=== PATIENT | female | born 1990 | race Caucasian/White ===

== ENCOUNTER 2017-10-29 00:40 | Emergency (ER) | payer MEDICAID, SELFPAY ==
[2017-10-29] VITALS (7 sets, daily range): BP systolic 93–114; BP diastolic 48–71; PULSE 88–93; RESP 14–18; TEMP 36.6; O2SAT 95; BMI 43.2
--- NOTE | 2017-10-29 01:00 | ED.VISSUMM ---
- ER Visit Summary Date of Service: 10/29/17 Chief Complaint: Suicidal ideation History of Present Illness: The patient is a 26 F presents with mother for suicidal ideations over the past couple days. Increasing stress in guiltiness. History of depression, bipolar, PTSD. Patient just discharged from [facility] on the of last month after 5 day stay. She was started on Abilify and trazodone. Still taking Celexa. Was not represcribed Klonopin. Patient states she hears voices, voices telling her to kill herself.. She states she does have a plan of either overdose, jump and out in front of a car, or off a bridge. States history of overdose ?3 along with self-mutilation. Patient states her only inpatient was her last visit [facility]. States she drank alcohol today, not regularly. Smokes tobacco. Previous IV methamphetamine use, last use was prior to her hospitalization. Denies any vomiting diarrhea. Last menstrual period was approximately a month ago. Patient states she had a good experience with [facility] would like to go back. Physical Examination: General: Alert and oriented ?3, no acute distress HEENT: Normocephalic, atraumatic. Moist mucosa membranes Neck: supple, nontender. Cardiovascular: Regular rate and rhythm, no murmurs Respiratory: Normal breath sounds, symmetric, no distress Abdomen: Soft, nontender, nondistended Extremities: Nontender, no edema, pulses intact ?4 Neuro: no focal neurological deficits. Psych: Flat affect, depressed, cooperative. Suicidal ideations. Test Results: CBC, CMP normal. HCG negative. Alcohol 18. Tox screen positive for methamphetamines. Emergency Department Course and Treatment: Patient vitals stable, cooperative. Medical clearance labs obtained. Alcohol 18, tox screen positive for methamphetamines. Patient later did admit to nursing that she use IV meth yesterday. She is medically cleared. Currently pending [facility] evaluation for placement. 0630: Patient accepted back to [facility]. Treatment Plan: [] Disposition: Transfer to [facility] Impression: 1. Suicidal ideations with a plan This note was generated with [employer] software. It may contain incorrect words, spelling, and punctuation that were not noted in review of the chart prior to signing ED Disposition - Plan for ED Patient: Disposition: Psychiatric Hospital or Unit Chief Complaint: Suicidal Diagnosis: Depression with suicidal ideation Referrals: Jony Vásquez MD [Primary Care Provider] -
--- NOTE | 2017-10-29 01:03 | ED.DCSUM_ITS ---
- ER Visit Summary Date of Service: 10/29/17 Chief Complaint: Suicidal ideation History of Present Illness: The patient is a 26 F presents with mother for suicidal ideations over the past couple days. Increasing stress in guiltiness. History of depression, bipolar, PTSD. Patient just discharged from [facility] on the of last month after 5 day stay. She was started on Abilify and trazodone. Still taking Celexa. Was not represcribed Klonopin. Patient states she hears voices, voices telling her to kill herself.. She states she does have a plan of either overdose, jump and out in front of a car, or off a bridge. States history of overdose ?3 along with self-mutilation. Patient states her only inpatient was her last visit [facility]. States she drank alcohol today, not regularly. Smokes tobacco. Previous IV methamphetamine use , last use was prior to her hospitalization. Denies any vomiting diarrhea. Last menstrual period was approximately a month ago. Patient states she had a good experience with [facility] would like to go back. Physical Examination: General: Alert and oriented ?3, no acute distress HEENT: Normocephalic, atraumatic. Moist mucosa membranes Neck: supple, nontender. Cardiovascular: Regular rate and rhythm, no murmurs Respiratory: Normal breath sounds, symmetric, no distress Abdomen: Soft, nontender, nondistended Extremities: Nontender, no edema, pulses intact ?4 Neuro: no focal neurological deficits. Psych: Flat affect, depressed, cooperative. Suicidal ideations. Test Results: CBC, CMP normal. HCG negative. Alcohol 18. Tox screen positive for methamphetamines. Emergency Department Course and Treatment: Patient vitals stable, cooperative. Medical clearance labs obtained. Alcohol 18, tox screen positive for methamphetamines. Patient later did admit to nursing that she use IV meth yesterday. She is medically cleared. Currently pending [facility] evaluation for placement. 0630: Patient accepted back to [facility]. Treatment Plan: [] Disposition: Transfer to [facility] Impression: 1. Suicidal ideations with a plan This note was generated with [employer]ation software. It may contain incorrect words, spelling, and punctuation that were not noted in review of the chart prior to signing ED Disposition - Plan for ED Patient: Disposition: Psychiatric Hospital or Unit Chief Complaint: Suicidal Diagnosis: Depression with suicidal ideation Referrals: Jony Vásquez MD [Primary Care Provider] -
[2017-10-29 01:14] LABS: Absolute Lymphocyte Count 2.75 X10^3/ul (0.83-4.51); Absolute Neutrophil Count 5.5 X10^3/uL (2.0-7.7); Basophil# 0.02 X10^3/uL; Basophil% 0.2 % (0-1); Eosinophil# 0.13 X10^3/uL; Eosinophils% 1.5 % (0-5); Hematocrit 34.7 % (37-47); Lymphocyte # 2.75 X10^3/ul (4.0); Lymphocyte % 30.9 % (19-41); Mean Corp Hgb Conc 31.7 g/gl (32-36); Mean Corpuscular Hgb 27.7 pg (27.0-32.0); Mean Corpuscular Volume 87.4 fL (81-99); Mean Platelet Vol. 10.4 fl (6.2-12.0); Monocyte# 0.45 X10^3/uL; Monocyte% 5.1 % (0-10); Neutrophil # 5.54 X10^3/uL (2.7-7.7); Neutrophil % 62.1 % (47-70); Platelet Count 276 K/mm3 (150-450); Red Blood Count 3.97 M/mm3 (4.2-5.4); White Blood Count 8.9 K/mm3 (4.4-11.0)
[2017-10-29 01:19] LABS: POSITIVE COUNT NO; POSITIVE DIFFERENTIAL NO; POSITIVE MORPHOLOGY NO
[2017-10-29 01:27] LABS: ALB/GLOB Ratio 0.8 RATIO (0.9-2.4); AST(SGOT) 17 U/L (15-37); Alanine Aminotransfer ALT/SGPT 28 U/L (13-56); Albumin, Serum 3.4 g/dL (3.2-5.0); Alkaline Phosphatase 68 U/L (45-117); Anion Gap 10 (5-15); BUN 14 mg/dL (7-18); BUN/Creat Ratio 18.3 RATIO (10-20); Calcium,Total 8.4 mg/dL (8.5-10.1); Chloride 107 mmol/L (98-107); Creatinine, Serum 0.77 mg/dL (0.55-1.02); EST Glomerular Filtration Rate 95 mL/min (>60); Est Glom Filt Rate - Afr Amer 115 mL/min (>60); Estimated Creatinine Clearance 105.78 ml/min; Glucose 113 mg/dL (74-106); Potassium 3.6 mmol/L (3.5-5.1); Protein, Total 7.4 g/dL (6.4-8.2); Sodium Level 140 mmol/L (136-145)
[2017-10-29 01:49] LABS: Pregnancy, Serum, hCG Quali. NEGATIVE Negative (0-9 Nonpreg)
[2017-10-29 01:49] LABS: Amphetamine Urine VISTA POSITIVE (<1000 ng/mL); Barbiturate Urine VISTA NEGATIVE (< 200 ng/mL); Benzodiazepine Urine VISTA NEGATIVE (< 200 ng/mL); Cocaine Urine VISTA NEGATIVE (< 300 ng/mL); Ecstacy Urine VISTA POSITIVE (< 500 ng/mL); Methadone Urine VISTA NEGATIVE (< 300 ng/mL); PCP Urine VISTA NEGATIVE (< 25 ng/mL); THC Urine VISTA NEGATIVE (< 50 ng/mL); Vista UDS pH Range 5
--- NOTE | 2017-10-29 02:05 | ED.RN ---
RN CALLED FOR EKG, NO OLD EKG'S IN MUSE
--- NOTE | 2017-10-29 02:47 | ED.RN ---
CALLED CRISIS TO SEE THIS PT, NEDA IS UPHOLSTERY SEWER
--- NOTE | 2017-10-29 02:58 | ED.RN ---
NEDA CALLED BACK, SHE WILL BE IN
[2017-10-29] MEDS: ARIPiprazole 5 MG Tablet 15 MG PO (06:56)
[2017-10-29] MEDS: lamoTRIgine 100 MG Tablet PO (06:57)
[2017-10-29] MEDS: Citalopram 20 MG Tablet PO (06:57)
[2017-10-29] MEDS: traZODone 50 MG Tablet 150 MG PO (06:57)
[2017-10-29] MEDS: Thyroid 15 MG Tablet 30 MG PO (07:16)
== END 2017-10-29 08:11 ==
PROVIDERS: Emergency Provider Emergency Medicine; Family Provider Family Medicine; PCP Family Medicine
DX: R45.851 Suicidal ideations (principal); F32.9 Major depressive disorder, single episode, unspecified; F31.9 Bipolar disorder, unspecified; F43.10 Post-traumatic stress disorder, unspecified; F15.90 Other stimulant use, unspecified, uncomplicated; Z79.899 Other long term (current) drug therapy; F17.200 Nicotine dependence, unspecified, uncomplicated
CPT/HCPCS: 36415; 80053; 80307; 80320; 84703; 85025; 99285; G0480

== ENCOUNTER 2017-11-14 16:50 | Emergency (ER) | payer MEDICAID, SELFPAY ==
[2017-11-14 16:51] VITALS: BP 122/67; PULSE 96; RESP 14; TEMP 36.4; O2SAT 95; BMI 44.0
--- NOTE | 2017-11-14 17:40 | ED.DCSUM_ITS ---
- ER Visit Summary Date of Service: 11/14/17 Chief Complaint: Suicidal ideation History of Present Illness: The patient is a 27 F presenting with suicidal ideation. Patient states she was released from [facility] today. She was admitted for 1 week. She complains of persistent suicidal ideation, auditory hallucinations, depression. She states that she plans to overdose. She had an overdose 1 week ago on trazodone. She states she was only home for a couple hours and her mom brought her back to the ED for further evaluation. Physical Examination: Vitals are stable. Patient is afebrile. Alert no acute distress. HEENT exam is unremarkable. Neck is supple. Lungs are clear and equal bilaterally. Heart is regular rate and rhythm. Abdomen is soft nontender nondistended. Extremities are unremarkable. Skin is warm and dry. No focal neurologic deficit. Suicidal ideation Remainder of exam is unremarkable. Emergency Department Course and Treatment: CBC, chemistries unremarkable other than BUN 25. HCG negative. Tox and alcohol are negative. Discussed with the counseling center for evaluation. Disposition: Per counseling center Impression: Suicidal ideation, auditory hallucinations This note was generated with [employer] dictation software. It may contain incorrect words, spelling, and punctuation that were not noted in review of the chart prior to signing ED Disposition - Plan for ED Patient: Chief Complaint: Suicidal Referrals: Jony Vásquez MD [Primary Care Provider] -
[2017-11-14 17:46] LABS: Absolute Neutrophil Count 4.3 X10^3/uL (2.0-7.7); Basophil# 0.03 X10^3/uL; Basophil% 0.4 % (0-1); Eosinophil# 0.14 X10^3/uL; Eosinophils% 1.8 % (0-5); Hematocrit 35.1 % (37-47); Hemoglobin 11.3 g/dl (12.0-15.0); Lymphocyte % 35.2 % (19-41); Mean Corp Hgb Conc 32.2 g/gl (32-36); Mean Corpuscular Hgb 28.3 pg (27.0-32.0); Mean Corpuscular Volume 87.8 fL (81-99); Mean Platelet Vol. 10.4 fl (6.2-12.0); Monocyte% 6.5 % (0-10); Neutrophil % 56.1 % (47-70); Platelet Count 240 K/mm3 (150-450); RBC Distribution Width CV 15.9 % (11.6-14.6); RBC Distribution Width SD 50.6 fl (35.1-43.9); White Blood Count 7.7 K/mm3 (4.4-11.0)
[2017-11-14 17:51] LABS: POSITIVE COUNT NO; POSITIVE DIFFERENTIAL NO; POSITIVE MORPHOLOGY NO
[2017-11-14 18:02] LABS: Alcohol, Blood (Medical)-Serum < 3.0 mg/dL; Anion Gap 5 (5-15); BUN 25 mg/dL (7-18); BUN/Creat Ratio 28.1 RATIO (10-20); Calcium,Total 9.1 mg/dL (8.5-10.1); Chloride 109 mmol/L (98-107); Creatinine, Serum 0.89 mg/dL (0.55-1.02); EST Glomerular Filtration Rate 80 mL/min (>60); Est Glom Filt Rate - Afr Amer 97 mL/min (>60); Glucose 100 mg/dL (74-106); Potassium 4.1 mmol/L (3.5-5.1); Sodium Level 140 mmol/L (136-145)
[2017-11-14 18:09] LABS: Pregnancy, Serum, hCG Quali. NEGATIVE Negative (0-9 Nonpreg)
[2017-11-14 18:57] LABS: Amphetamine Urine VISTA NEGATIVE (<1000 ng/mL); Barbiturate Urine VISTA NEGATIVE (< 200 ng/mL); Benzodiazepine Urine VISTA NEGATIVE (< 200 ng/mL); Cocaine Urine VISTA NEGATIVE (< 300 ng/mL); Ecstacy Urine VISTA NEGATIVE (< 500 ng/mL); Methadone Urine VISTA NEGATIVE (< 300 ng/mL); PCP Urine VISTA NEGATIVE (< 25 ng/mL); THC Urine VISTA NEGATIVE (< 50 ng/mL); Vista UDS pH Range 7
[2017-11-14 19:00] VITALS: BP 105/55; PULSE 74; RESP 18; O2SAT 95
--- NOTE | 2017-11-14 21:12 | NURSING ---
PT HAS A NICOTINE INHALER, CALLED THE PHARMACY TO SEE IF IT WAS COMP. TO THE PATCH AND THEY SAID YES. SO I ALLOWED THE PT TO HAVE HER INHALER.
[2017-11-14 21:15] VITALS: BP 107/83; PULSE 82; RESP 18; O2SAT 97
[2017-11-14 22:00] VITALS: RESP 16
--- NOTE | 2017-11-14 22:16 | ED.RN ---
CRISIS ON SITE
--- NOTE | 2017-11-14 22:36 | EKG12_ITS ---
Test Reason : Blood Pressure : / mmHG Vent. Rate : 069 BPM Atrial Rate : 069 BPM P-R Int : 152 ms QRS Dur : 098 ms QT Int : 426 ms P-R-T Axes : 007 064 058 degrees QTc Int : 456 ms Normal sinus rhythm Normal ECG Confirmed by JOSELINE SHAIKH ([id number]), industrial editor KANDACE TORRES ([id number] on 11/21/2017 2:45:09 PM Referred By: ALYSSA Confirmed By:JOSELINE SHAIKH
--- NOTE | 2017-11-14 22:42 | ED.RN ---
no old ekg's in [facility]
[2017-11-14 23:00] VITALS: RESP 16
[2017-11-14 23:05] LABS: Color, Urine Yellow (Yellow); Glucose, Dipstick Normal (Normal); Ketone-Dipstick Negative (Negative); Leukocyte Esterase-Dipstick 500 /ul (Negative); Nitrite-Dipstick Negative (Negative); Occult Blood-Urine 25 /ul (Negative); Protein-Dipstick 15 mg/dl (Negative); Specific Gravity, Urine 1.025 (1.002-1.030); Urine Bilirubin Dipstick Negative (Negative); Urine Clarity Clear (Clear); Urine Urobilinogen Normal (Normal)
[2017-11-14 23:05] LABS: AST(SGOT) 19 U/L (15-37); Alanine Aminotransfer ALT/SGPT 29 U/L (13-56); Albumin, Serum 3.5 g/dL (3.2-5.0); Alkaline Phosphatase 64 U/L (45-117); Bilirubin, Direct 0.06 mg/dL (0.00-0.30); Globulin 3.9 g/dL (2.2-4.2); Protein, Total 7.4 g/dL (6.4-8.2)
[2017-11-14 23:23] LABS: Red Blood Cells-Urine 0-5 SEEN /hpf (0-5); White Blood Cells 5-10 SEEN /hpf (0-5)
[2017-11-14 23:24] LABS: Bacteria RARE /hpf (None Seen); Mucous, Urine 1+ /hpf (<or=2+); Squamous Epithelial Cells - UA 5-10 SEEN /hpf (5-10)
[2017-11-15] VITALS (15 sets, daily range): BP systolic 95–135; BP diastolic 51–78; PULSE 68–77; RESP 14–18; O2SAT 97–99
[2017-11-15] MEDS: Thyroid 15 MG Tablet 30 MG PO (07:11)
[2017-11-15] MEDS: ARIPiprazole 5 MG Tablet 15 MG PO (08:12)
[2017-11-15] MEDS: Citalopram 20 MG Tablet PO (08:13)
[2017-11-15] MEDS: lamoTRIgine 100 MG Tablet PO (08:13)
--- NOTE | 2017-11-15 11:00 | NURSING ---
PATIENT ON THE WAIT LIST AT [facility]
[2017-11-16] VITALS (8 sets, daily range): BP systolic 102–110; BP diastolic 69–81; PULSE 69–74; RESP 16–17; TEMP 36.7; O2SAT 96–98
--- NOTE | 2017-11-16 05:41 | NURSING ---
TRANSPORT TO BE SET UP AROUND 9AM THAT IS WHEN A BED WILL FINALLY BE READY.
--- NOTE | 2017-11-16 06:23 | NURSING ---
[facility] called that the pt will have a bed at 0900 and we will set up transport and will call nurse to nurse report.
[2017-11-16] MEDS: Thyroid 15 MG Tablet 30 MG PO (06:48)
[2017-11-16] MEDS: lamoTRIgine 100 MG Tablet PO (08:05)
[2017-11-16] MEDS: ARIPiprazole 5 MG Tablet 15 MG PO (08:05)
[2017-11-16] MEDS: Citalopram 20 MG Tablet PO (08:05)
== END 2017-11-16 09:17 ==
PROVIDERS: Emergency Provider Emergency Medicine; Family Provider Family Medicine; PCP Family Medicine
DX: R45.851 Suicidal ideations (principal); R44.0 Auditory hallucinations; F32.9 Major depressive disorder, single episode, unspecified; F43.10 Post-traumatic stress disorder, unspecified; F31.9 Bipolar disorder, unspecified; F41.9 Anxiety disorder, unspecified; Z79.899 Other long term (current) drug therapy; Z72.0 Tobacco use
CPT/HCPCS: 36415; 80048; 80076; 80307; 80320; 81001; 84703; 85025; 93005; 99285; G0480

== ENCOUNTER 2018-03-26 14:30 | Emergency (ER) | payer MEDICAID, SELFPAY ==
[2018-03-26 14:31] VITALS: BP 132/79; PULSE 101; RESP 14; TEMP 36.4; O2SAT 98; BMI 43.1
--- NOTE | 2018-03-26 14:56 | ED.VISSUMM ---
- ER Visit Summary Date of Service: 03/26/18 Chief Complaint: Suicidal ideation History of Present Illness: The patient is a 27 F with a few week history of suicidal ideation, it is worsening. She was in [place] [facility] and she was suicidal there but now she is getting worse. She is been clean 2 weeks from her drugs. But she still has suicidal ideations. She hears voices which are telling her to kill herself and that she is not worth any pain, now she wants to overdose. She has no physical complaints. Physical Examination: Not appear in acute distress. Moist mucous membranes, no obvious facial deformity No C-spine tenderness supple neck. Regular rate and rhythm without any obvious murmurs Clear lungs bilaterally speaking in full sentences without any obvious respiratory distress Abdomen soft and nontender no guarding or rebound Moves all extremities without any difficulty or pain. Skin does not show any obvious rashes or lesions, no trauma. Alert oriented ?3 with no gross focal deficit She is pleasant cooperative, quite forthcoming with her history and I do feel she really does not wish to get help. Emergency Department Course and Treatment: Patient will be medically cleared, she will need transfer for further psychiatric workup and treatment. Disposition: Plan is to transfer to psychiatric institution Impression: Suicidal ideation This note was generated with [employer] dictation software. It may contain incorrect words, spelling, and punctuation that were not noted in review of the chart prior to signing ED Disposition - Plan for ED Patient: Chief Complaint: Suicidal Referrals: Jony Vásquez MD [Primary Care Provider] -
[2018-03-26 15:30] VITALS: RESP 16
[2018-03-26] MEDS: Ibuprofen 600 MG Tablet PO (15:53)
[2018-03-26 16:20] LABS: Absolute Lymphocyte Count 2.72 X10^3/ul (0.83-4.51); Absolute Neutrophil Count 5.2 X10^3/uL (2.0-7.7); Basophil# 0.03 X10^3/uL; Basophil% 0.4 % (0-1); Eosinophil# 0.13 X10^3/uL; Eosinophils% 1.5 % (0-5); Hematocrit 37.8 % (37-47); Lymphocyte # 2.72 X10^3/ul (4.0); Lymphocyte % 31.7 % (19-41); Mean Corp Hgb Conc 31.7 g/gl (32-36); Mean Corpuscular Hgb 28.8 pg (27.0-32.0); Mean Corpuscular Volume 90.9 fL (81-99); Mean Platelet Vol. 10.9 fl (6.2-12.0); Monocyte# 0.51 X10^3/uL; Neutrophil # 5.17 X10^3/uL (2.7-7.7); Neutrophil % 60.3 % (47-70); POSITIVE COUNT NO; POSITIVE DIFFERENTIAL NO; POSITIVE MORPHOLOGY NO; Platelet Count 234 K/mm3 (150-450); RBC Distribution Width CV 15.1 % (11.6-14.6); RBC Distribution Width SD 49.4 fl (35.1-43.9); Red Blood Count 4.16 M/mm3 (4.2-5.4); White Blood Count 8.6 K/mm3 (4.4-11.0)
[2018-03-26 16:30] VITALS: RESP 14
[2018-03-26 16:30] LABS: Anion Gap 8 (5-15); BUN 12 mg/dL (7-18); BUN/Creat Ratio 14.8 RATIO (10-20); Chloride 108 mmol/L (98-107); Creatinine, Serum 0.81 mg/dL (0.55-1.02); EST Glomerular Filtration Rate 89 mL/min (>60); Est Glom Filt Rate - Afr Amer 107 mL/min (>60); Estimated Creatinine Clearance 99.66 ml/min; Glucose 95 mg/dL (74-106); Sodium Level 145 mmol/L (136-145)
[2018-03-26 16:33] LABS: Amphetamine Urine VISTA NEGATIVE (<1000 ng/mL); Barbiturate Urine VISTA NEGATIVE (< 200 ng/mL); Benzodiazepine Urine VISTA NEGATIVE (< 200 ng/mL); Cocaine Urine VISTA NEGATIVE (< 300 ng/mL); Ecstacy Urine VISTA NEGATIVE (< 500 ng/mL); Methadone Urine VISTA NEGATIVE (< 300 ng/mL); PCP Urine VISTA NEGATIVE (< 25 ng/mL); THC Urine VISTA POSITIVE (< 50 ng/mL); Vista UDS pH Range 7
--- NOTE | 2018-03-26 16:47 | NURSING ---
CRISIS ALREADY IN BUILDING TO SEE ANOTHER PATIENT SO ANNABELLE WAS INFORMED OF THIS ONE
[2018-03-26 17:06] LABS: Pregnancy, Serum, hCG Quali. NEGATIVE Negative (0-9 Nonpreg)
[2018-03-26 17:30] VITALS: RESP 18
[2018-03-26 18:30] VITALS: RESP 16
[2018-03-26 19:26] VITALS: BP 118/86; PULSE 95; RESP 16; O2SAT 95
--- NOTE | 2018-03-26 21:14 | ED.RN ---
ATTEMPTED MULTIPLE TIMES TO CALL REPORT. NO ANSWER. LEFT VOICEMAIL TO CALL BACK WITH ED NUMBER.
== END 2018-03-26 20:11 ==
LOC: ED 15:00
PROVIDERS: Emergency Provider Emergency Medicine; Family Provider Family Medicine; PCP Family Medicine
DX: R45.851 Suicidal ideations (principal); R44.0 Auditory hallucinations; F41.9 Anxiety disorder, unspecified; F32.9 Major depressive disorder, single episode, unspecified; F31.9 Bipolar disorder, unspecified; F43.10 Post-traumatic stress disorder, unspecified; Z79.899 Other long term (current) drug therapy
CPT/HCPCS: 80048; 80307; 80320; 84703; 85025; 99282; G0480

== ENCOUNTER 2018-06-29 17:39 | Emergency (ER) | payer MEDICAID, SELFPAY ==
[2018-06-29 17:40] VITALS: BP 115/70; PULSE 93; RESP 18; TEMP 36.1; O2SAT 96; BMI 46.0
--- NOTE | 2018-06-29 17:52 | RAD_ITS ---
STUDY: X-RAY CHEST REASON FOR EXAM: Female, 27 years old. Cough. TECHNIQUE: Single AP portable view of the chest. COMPARISON: None. FINDINGS: The lungs are clear and expanded. There is no demonstrated pleural abnormality. Normal size heart. Normal mediastinum and leonardo. Normal visualized pulmonary arteries. Normal visualized aortic arch and descending thoracic aorta. Normal visualized thoracic spine. Normal visualized ribs, clavicles, and shoulders. There is no demonstrated abnormality of the visualized soft tissue structures of the upper abdomen. RAD/Chest 1 View (Portable) IMPRESSION: Normal x-ray examination of the chest. Electronically Signed: Ronnie Mayers MD at 18:16 EST , Service support ,
--- NOTE | 2018-06-29 17:55 | ED.DCSUM_ITS ---
- ER Visit Summary Date of Service: 06/29/18 Chief Complaint: Cough History of Present Illness: The patient is a 27 F presenting with cough, congestion. She states that this started a couple of days ago. She has had temperature up to 100 at home. She has had chills, rhinorrhea, sore throat. She has had a productive cough. She denies chest pain or shortness of breath. Denies abdominal pain or vaginal bleeding. She is currently 9 weeks . She has taken Tylenol and Benadryl at home. She has multiple sick contacts. Physical Examination: Vitals are stable. Patient is afebrile. Alert no acute distress. HEENT exam is unremarkable. Pharynx is normal; no erythema, no exudate, uvula is midline Neck is supple. No meningismus Lungs are clear and equal bilaterally. Heart is regular rate and rhythm. Abdomen is soft nontender nondistended. Extremities are unremarkable. Skin is warm and dry. No rash Remainder of exam is unremarkable. Emergency Department Course and Treatment: Chest x-ray with shielding shows no acute process. Patient is advised to continue Tylenol as needed. Advised to follow-up with primary care physician. Advised return to ED if worsening complaints. Disposition: Discharge home Impression: URI This note was generated with [employer] dictation software. It may contain incorrect words, spelling, and punctuation that were not noted in review of the chart prior to signing ED Disposition - Plan for ED Patient: Instructions: ED Upper Resp Infec No Abx Tx Referrals: Jony Vásquez MD [Primary Care Provider] -
--- NOTE | 2018-06-29 18:22 | ED.DEP ---
ED Disposition - Plan for ED Patient: Instructions: ED Upper Resp Infec No Abx Tx Referrals: Jony Vásquez MD [Primary Care Provider] -
== END 2018-06-29 18:38 | disposition home or self-care (01) ==
LOC: ED 18:06
PROVIDERS: Emergency Provider Emergency Medicine; Family Provider Family Medicine; PCP Family Medicine
DX: O99.89 Other specified diseases and conditions complicating pregnancy, childbirth and the puerperium (principal); J06.9 Acute upper respiratory infection, unspecified; O99.341 Other mental disorders complicating pregnancy, first trimester; F32.9 Major depressive disorder, single episode, unspecified; O99.331 Smoking (tobacco) complicating pregnancy, first trimester; F17.200 Nicotine dependence, unspecified, uncomplicated; Z3A.09 9 weeks gestation of pregnancy; Z79.899 Other long term (current) drug therapy
CPT/HCPCS: 71045; 99282

== ENCOUNTER 2018-07-01 17:31 | Emergency (ER) | payer MEDICAID, SELFPAY ==
[2018-07-01 17:33] VITALS: BP 136/80; PULSE 90; RESP 18; TEMP 36.7; O2SAT 96; BMI 46.0
--- NOTE | 2018-07-01 18:03 | US_ITS ---
STUDY: FIRST TRIMESTER OBSTETRICAL ULTRASOUND REASON FOR EXAM: Female, 27 years old. Heavy bleeding, . LMP: 04/22/2018. TECHNIQUE: Transvaginal. TECHNICAL QUALITY: Adequate. PRIOR ULTRASOUND: None. FINDINGS: Gravid uterus measures 12.4 x 6.5 x 6.8 cm. There is a single live intrauterine gestation. Cardiac activity is documented, with heart rate of 174 bpm. Mean sonographic estimated gestational age based on crown-rump length is 9 weeks 2 days. Normal yolk sac is demonstrated. There is no evidence of subchorionic hemorrhage. Cervical length measures 3.3 cm. There is mild fluid within the cervix. There is heterogeneous material within the cervix, consistent with history of bleeding. There is no funneling. The right ovary measures 4.5 x 2.8 x 3.5 cm. Venous flow is documented. There is a 2.5 x 2.2 x 2.4 cm cyst in the right ovary. US/Transvaginal w/Preg US IMPRESSION: 1. Single live intrauterine gestation with EGA of 9 weeks 2 days. 2. Fluid and hemorrhage within the cervix without funneling. 3. Right ovarian corpus luteum cyst. Electronically Signed: Kaylynn Gaona MD at 22:19 EST Tel , Service support ,
[2018-07-01 18:48] LABS: hCG Titer Quant., Serum 132273 mIU/mL (<9 non-preg)
[2018-07-01 20:15] VITALS: BP 112/73; PULSE 80; RESP 18; O2SAT 95
--- NOTE | 2018-07-01 21:00 | ED.VISSUMM ---
- ER Visit Summary Date of Service: 07/01/18 Chief Complaint: Vaginal bleeding and History of Present Illness: The patient is a 27 F presenting with vaginal bleeding. She is 9 weeks . She has history of 5 previous miscarriages. [id number]. She states bleeding started 1 hour ago. She has had heavy bleeding with clots. She denies lightheadedness or syncope. Denies pelvic pain. Denies other complaints. Physical Examination: Vitals are stable. Patient is afebrile. Alert no acute distress. HEENT exam is unremarkable. Lungs are clear and equal bilaterally. Heart is regular rate and rhythm. Abdomen is soft nontender nondistended. No guarding or rebound : Small amount of blood in the vaginal vault, no active bleeding. No adnexal tenderness. Extremities are unremarkable. Skin is warm and dry. Remainder of exam is unremarkable. Emergency Department Course and Treatment: HCG quant [id number], blood type A positive. Pelvic ultrasound shows single live intrauterine gestation with EGA of 9 weeks 2 days. Fluid and hemorrhage within the cervix without funneling. Right ovarian corpus luteum cyst. Discussed with Dr. Pérez. She states patient missed her appointment 2 days ago. She is advised to keep her next appointment. She is advised pelvic rest until she is seen. Advised to return to ED if worsening complaints. Disposition: Discharge home Impression: Threatened This note was generated with [employer] dictation software. It may contain incorrect words, spelling, and punctuation that were not noted in review of the chart prior to signing ED Disposition - Plan for ED Patient: Referrals: Jony Vásquez MD [Primary Care Provider] -
--- NOTE | 2018-07-01 21:03 | ED.DCSUM_ITS ---
- ER Visit Summary Date of Service: 07/01/18 Chief Complaint: Vaginal bleeding and History of Present Illness: The patient is a 27 F presenting with vaginal bleeding. She is 9 weeks . She has history of 5 previous miscarriages. [id number]. She states bleeding started 1 hour ago. She has had heavy bleeding with clots. She denies lightheadedness or syncope. Denies pelvic pain. Denies other complaints. Physical Examination: Vitals are stable. Patient is afebrile. Alert no acute distress. HEENT exam is unremarkable. Lungs are clear and equal bilaterally. Heart is regular rate and rhythm. Abdomen is soft nontender nondistended. No guarding or rebound : Small amount of blood in the vaginal vault, no active bleeding. No adnexal tenderness. Extremities are unremarkable. Skin is warm and dry. Remainder of exam is unremarkable. Emergency Department Course and Treatment: HCG quant [id number], blood type A positive. Pelvic ultrasound shows single live intrauterine gestation with EGA of 9 weeks 2 days. Fluid and hemorrhage within the cervix without funneling. Right ovarian corpus luteum cyst. Discussed with Dr. Pérez. She states patient missed her appointment 2 days ago. She is advised to keep her next appointment. She is advised pelvic rest until she is seen. Advised to return to ED if worsening complaints. Disposition: Discharge home Impression: Threatened This note was generated with [employer] dictation software. It may contain incorrect words, spelling, and punctuation that were not noted in review of the chart lalito or to signing ED Disposition - Plan for ED Patient: Referrals: Jony Vásquez MD [Primary Care Provider] -
[2018-07-01] MEDS: Acetaminophen 500 MG Tablet 1000 MG PO (21:54)
--- NOTE | 2018-07-01 22:31 | ED.DEP ---
ED Disposition - Plan for ED Patient: Instructions: ED Miscarriage Poss Referrals: Angela Fonseca MD [STAFF PHYSICIAN] -
[2018-07-01 22:36] VITALS: BP 120/87; PULSE 84; RESP 16; O2SAT 100
== END 2018-07-01 22:41 | disposition home or self-care (01) ==
PROVIDERS: Emergency Provider Emergency Medicine; Family Provider Family Medicine; PCP Family Medicine
DX: O20.0 Threatened abortion (principal); O26.21 Pregnancy care for patient with recurrent pregnancy loss, first trimester; O34.81 Maternal care for other abnormalities of pelvic organs, first trimester; N83.11 Corpus luteum cyst of right ovary; O99.331 Smoking (tobacco) complicating pregnancy, first trimester; F17.200 Nicotine dependence, unspecified, uncomplicated; Z3A.09 9 weeks gestation of pregnancy
CPT/HCPCS: 76817; 84702; 86900; 99285

== ENCOUNTER 2018-09-07 14:22 | Emergency (ER) | payer MEDICAID, SELFPAY ==
[2018-09-07 14:23] VITALS: BP 135/78; PULSE 120; RESP 20; TEMP 36.4; O2SAT 97; BMI 46.3
--- NOTE | 2018-09-07 14:54 | ED.VISSUMM ---
- ER Visit Summary Date of Service: 09/07/18 Chief Complaint: Dry heaves History of Present Illness: The patient is a 27 F who presents with dry heaves that began yesterday. Patient states she is approximately 18 weeks . Patient states she relapsed on methamphetamine last night. Patient denies any fevers or chills. Patient does admit to a sore throat, hoarse voice, and right ear pain. Patient also admits to a cough. Patient denies any abnormal vaginal bleeding or discharge. Patient denies any abdominal pain or cramping. Physical Examination: Vital signs are stable except for tachycardia of 120. Patient is afebrile. Patient is in no acute distress. Oral mucosa is pink and moist. Oropharynx is clear. The right tympanic membrane is slightly erythematous. The left tympanic membrane is clear. Neck is supple. Trachea is midline. There is no JVD noted. Heart was regular rate and rhythm. Lungs are clear and equal bilaterally. Abdomen is soft. Bowel sounds are normal. There is no tenderness noted. There is no guarding noted. Cranial nerves II through XII are intact. There are no focal motor or sensory deficits noted. Test Results: CBC, basic metabolic profile, quantitative hCG, and urinalysis were obtained. There is a mild anemia with hemoglobin of 11.6 and hematocrit 35.3. Quantitative hCG is still pending. Emergency Department Course and Treatment: Patient was given IV fluids. heart tones were obtained and were normal at 140. Patient was given a prescription for amoxicillin for right otitis media. Patient felt better on reevaluation. Patient was instructed to follow-up with her NEUROSURGERY SPINE PHYSICIAN in 5-7 days. Patient understood and was agreeable with the plan. All questions were answered. Disposition: Discharge home Impression: 1. 2. Substance abuse 3. Right otitis media This note was generated with [employer] software. It may contain incorrect words, spelling, and punctuation that were not noted in review of the chart prior to signing ED Disposition - Plan for ED Patient: Disposition: Home or Assisted Living Diagnosis: Substance abuse, , Right acute otitis media Instructions: ED Drug Abuse General, ED Otitis Media Acute Adult Prescriptions: Amoxicillin 500 mg PO TID #30 tab Referrals: Jony Vásquez MD [Primary Care Provider] - 5-7 Days
[2018-09-07 15:22] LABS: Red Blood Cells-Urine 0 SEEN /hpf (0-5)
[2018-09-07 15:29] LABS: Color, Urine Yellow (Yellow); Glucose, Dipstick Normal (Normal); Ketone-Dipstick 50 mg/dl (Negative); Leukocyte Esterase-Dipstick 25 /ul (Negative); Nitrite-Dipstick Negative (Negative); Occult Blood-Urine Negative /ul (Negative); Protein-Dipstick 30 mg/dl (Negative); Specific Gravity, Urine 1.025 (1.002-1.030); Urine Bilirubin Dipstick Negative (Negative); Urine Clarity Sl. Cloudy (Clear); Urine Urobilinogen 1 mg/dl (Normal)
[2018-09-07 15:30] LABS: Absolute Neutrophil Count 5.6 X10^3/uL (2.0-7.7); Basophil# 0.01 X10^3/uL; Basophil% 0.1 % (0-1); Eosinophil# 0.05 X10^3/uL; Eosinophils% 0.6 % (0-5); Hematocrit 35.3 % (37-47); Hemoglobin 11.6 g/dl (12.0-15.0); Lymphocyte % 21.9 % (19-41); Mean Corp Hgb Conc 32.9 g/gl (32-36); Mean Corpuscular Volume 91.2 fL (81-99); Mean Platelet Vol. 10.9 fl (6.2-12.0); Monocyte# 0.42 X10^3/uL; Monocyte% 5.4 % (0-10); Neutrophil # 5.58 X10^3/uL (2.7-7.7); Neutrophil % 71.7 % (47-70); Platelet Count 221 K/mm3 (150-450); Red Blood Count 3.87 M/mm3 (4.2-5.4); White Blood Count 7.8 K/mm3 (4.4-11.0)
[2018-09-07] MEDS: 0.9% Normal Saline 1,000 ML 1000 ML IV (15:30)
[2018-09-07 15:35] LABS: POSITIVE COUNT NO; POSITIVE DIFFERENTIAL NO; POSITIVE MORPHOLOGY NO
[2018-09-07 15:37] LABS: Bacteria 1+ /hpf (None Seen); Mucous, Urine 1+ /hpf (<or=2+); Squamous Epithelial Cells - UA 0-5 SEEN /hpf (5-10); White Blood Cells 0-5 SEEN /hpf (0-5)
[2018-09-07 15:40] LABS: Anion Gap 9 (5-15); BUN 7 mg/dL (7-18); BUN/Creat Ratio 11.8 RATIO (10-20); Calcium,Total 8.6 mg/dL (8.5-10.1); Chloride 106 mmol/L (98-107); Creatinine, Serum 0.59 mg/dL (0.55-1.02); EST Glomerular Filtration Rate 127 mL/min (>60); Est Glom Filt Rate - Afr Amer 154 mL/min (>60); Estimated Creatinine Clearance 136.82 ml/min; Glucose 132 mg/dL (74-106); Potassium 3.7 mmol/L (3.5-5.1); Sodium Level 138 mmol/L (136-145)
[2018-09-07 17:40] LABS: hCG Titer Quant., Serum 11396 mIU/mL (<9 non-preg)
[2018-09-07 18:10] VITALS: PULSE 110; RESP 18; O2SAT 99
== END 2018-09-07 18:10 | disposition home or self-care (01) ==
PROVIDERS: Emergency Provider Emergency Medicine; Family Provider Family Medicine; PCP Family Medicine
DX: O99.322 Drug use complicating pregnancy, second trimester (principal); F19.10 Other psychoactive substance abuse, uncomplicated; H66.91 Otitis media, unspecified, right ear; R20.2 Paresthesia of skin; R05 Cough; J02.9 Acute pharyngitis, unspecified; O99.332 Smoking (tobacco) complicating pregnancy, second trimester; Z3A.18 18 weeks gestation of pregnancy
CPT/HCPCS: 80048; 81001; 84702; 85025; 96360; 99283; J7030; A4216

== ENCOUNTER 2018-10-19 23:32 | Emergency (ER) | payer MEDICAID, SELFPAY ==
[2018-10-19 23:33] VITALS: BP 103/54; PULSE 91; RESP 16; O2SAT 96
[2018-10-19 23:39] VITALS: BP 128/74; PULSE 89; RESP 16; TEMP 36.6; O2SAT 97; BMI 49.4
[2018-10-20] VITALS (21 sets, daily range): BP systolic 94–139; BP diastolic 56–83; PULSE 72–100; RESP 14–18; O2SAT 93–99
--- NOTE | 2018-10-20 00:09 | ED.RN ---
PTS MOTHER CONTACTED THE ER AND STATES SHE CAN BE CONTACTED AT [phone] MOTHERS NAME IS IVETTE LOW
[2018-10-20 00:17] LABS: Absolute Lymphocyte Count 2.71 X10^3/ul (0.83-4.51); Absolute Neutrophil Count 3.9 X10^3/uL (2.0-7.7); Basophil# 0.01 X10^3/uL; Basophil% 0.1 % (0-1); Eosinophil# 0.08 X10^3/uL; Eosinophils% 1.1 % (0-5); Hematocrit 33.5 % (37-47); Hemoglobin 11.4 g/dl (12.0-15.0); Lymphocyte # 2.71 X10^3/ul (4.0); Lymphocyte % 37.5 % (19-41); Mean Corpuscular Hgb 30.8 pg (27.0-32.0); Mean Corpuscular Volume 90.5 fL (81-99); Mean Platelet Vol. 11.2 fl (6.2-12.0); Monocyte% 6.9 % (0-10); Neutrophil % 54.1 % (47-70); POSITIVE COUNT NO; POSITIVE DIFFERENTIAL NO; POSITIVE MORPHOLOGY NO; Platelet Count 170 K/mm3 (150-450); RBC Distribution Width CV 14.2 % (11.6-14.6); RBC Distribution Width SD 45.5 fl (35.1-43.9); White Blood Count 7.2 K/mm3 (4.4-11.0)
[2018-10-20 00:39] LABS: ALB/GLOB Ratio 0.7 RATIO (0.9-2.4); AST(SGOT) 31 U/L (15-37); Alanine Aminotransfer ALT/SGPT 30 U/L (13-56); Albumin, Serum 2.6 g/dL (3.2-5.0); Alkaline Phosphatase 62 U/L (45-117); Anion Gap 6 (5-15); BUN 4 mg/dL (7-18); BUN/Creat Ratio 6.8 RATIO (10-20); Calcium,Total 7.6 mg/dL (8.5-10.1); Chloride 111 mmol/L (98-107); Creatinine, Serum 0.58 mg/dL (0.55-1.02); EST Glomerular Filtration Rate 129 mL/min (>60); Est Glom Filt Rate - Afr Amer 156 mL/min (>60); Estimated Creatinine Clearance 139.18 ml/min; Globulin 3.5 g/dL (2.2-4.2); Glucose 105 mg/dL (74-106); Potassium 2.9 mmol/L (3.5-5.1); Protein, Total 6.1 g/dL (6.4-8.2); Sodium Level 143 mmol/L (136-145)
[2018-10-20 00:40] LABS: Bacteria 0 SEEN /hpf (None Seen); Color, Urine Straw (Yellow); Glucose, Dipstick Normal (Normal); Ketone-Dipstick Negative (Negative); Leukocyte Esterase-Dipstick Negative /ul (Negative); Mucous, Urine 0 SEEN /hpf (<or=2+); Nitrite-Dipstick Negative (Negative); Occult Blood-Urine Negative /ul (Negative); Protein-Dipstick Negative (Negative); Red Blood Cells-Urine 0 SEEN /hpf (0-5); Squamous Epithelial Cells - UA 0 SEEN /hpf (5-10); Urine Bilirubin Dipstick Negative (Negative); Urine Clarity Clear (Clear); Urine Urobilinogen Normal (Normal); White Blood Cells 0 SEEN /hpf (0-5)
[2018-10-20 01:09] LABS: Amphetamine Urine VISTA NEGATIVE (<1000 ng/mL); Barbiturate Urine VISTA NEGATIVE (< 200 ng/mL); Benzodiazepine Urine VISTA NEGATIVE (< 200 ng/mL); Cocaine Urine VISTA NEGATIVE (< 300 ng/mL); Ecstacy Urine VISTA NEGATIVE (< 500 ng/mL); Methadone Urine VISTA NEGATIVE (< 300 ng/mL); PCP Urine VISTA NEGATIVE (< 25 ng/mL); THC Urine VISTA NEGATIVE (< 50 ng/mL); Vista UDS pH Range 7
--- NOTE | 2018-10-20 01:10 | ED.RN ---
lab called with critical lab results. etoh level 336. Dr. Jules made aware no new orders at this time
--- NOTE | 2018-10-20 01:11 | ED.VISSUMM ---
- ER Visit Summary Date of Service: 10/20/18 Chief Complaint: Drunk History of Present Illness: The patient is a 27 F who presents with alcohol intoxication. She is 6 months . She states she has been drinking daily for at least 5 months. She was brought in by police. She is uncertain who called but believes it may have been her boyfriend. She reports suicidal thoughts. She has been having suicidal thoughts for weeks. She states she has thought of cutting her wrists or overdosing. She states this is because she feels she does not deserve the child she was with. She also recently had a gastroenteritis-like illness with nausea vomiting and diarrhea. She was seen at an urgent care and advised on supportive care. Physical Examination: Afebrile vitals normal Patient clinically intoxicated Moist mucous membranes Heart regular rate and rhythm Lungs are clear Abdomen soft Alert Test Results: CBC BMP urinalysis notable for potassium 2.9. Her alcohol is 336. Urine drug screen is negative. Emergency Department Course and Treatment: Patient was given oral potassium chloride. She will be observed until sober at which point we will have crisis evaluate her. However given her report of suicidal thoughts with plan I do believe she will likely require hospitalization. Treatment Plan: [] Disposition: Transfer pending crisis evaluation Impression: Suicidal ideation Alcohol intoxication This note was generated with [employer] dictation software. It may contain incorrect words, spelling, and punctuation that were not noted in review of the chart prior to signing ED Disposition - Plan for ED Patient: Referrals: Jony Vásquez MD [Primary Care Provider] -
[2018-10-20 10:09] LABS: Anion Gap 4 (5-15); BUN 7 mg/dL (7-18); Calcium,Total 7.5 mg/dL (8.5-10.1); Chloride 112 mmol/L (98-107); EST Glomerular Filtration Rate 154 mL/min (>60); Est Glom Filt Rate - Afr Amer 186 mL/min (>60); Estimated Creatinine Clearance 161.44 ml/min; Glucose 120 mg/dL (74-106); Potassium 3.7 mmol/L (3.5-5.1); Sodium Level 143 mmol/L (136-145)
--- NOTE | 2018-10-20 10:30 | CM.ED ---
SOCIAL WORK DISCUSSED CASE WITH PHYSICIAN. CRISIS TO EVALUATE. NICHOLAS DUKE, SENIOR STAFF PSYCHOLOGIST, AVIATION TECHNICAL SYSTEMS SPECIALIST.
[2018-10-20] MEDS: Mag Hydrox/Al Hydrox/Simeth 30 ML UDC PO (11:04)
--- NOTE | 2018-10-20 11:08 | ED.RN ---
MONSE STATED SHE WILL BE BACK TO SEE THE PT. [facility]
[2018-10-20] MEDS: proMETHazine 25 MG/ML Syringe 12.5 MG IV ×2 (13:14→20:46)
[2018-10-20] MEDS: Famotidine 20 MG Tablet PO (13:15)
--- NOTE | 2018-10-20 13:49 | ED.RN ---
ART FROM CRISIS IS IN WITH PT
--- NOTE | 2018-10-20 16:13 | ED.RN ---
[facility] DECLINED THE PT. DUE TO A HIGH LEVEL OF CARE NEEDED DUE TO
--- NOTE | 2018-10-20 16:25 | ED.RN ---
[facility] ALSO DECLINED THE PT DUE TO LEVEL OF CARE NEEDED; CALLED AND LET YUNIEL WITH CRISIS KNOW
--- NOTE | 2018-10-20 16:26 | ED.RN ---
[facility] ORONA CALLED AND INFORMED THAT THEY WERE DECLINING UPON THE PT DUE TO HER BEING 6 MONTHS AND HER LEVEL OF ALCOHOL CONSUMPTION.
--- NOTE | 2018-10-20 19:07 | EKG12_ITS ---
Test Reason : MH PLACEMENT Blood Pressure : / mmHG Vent. Rate : 089 BPM Atrial Rate : 089 BPM P-R Int : 158 ms QRS Dur : 102 ms QT Int : 384 ms P-R-T Axes : 042 060 050 degrees QTc Int : 467 ms Normal sinus rhythm Normal ECG Confirmed by MARVIN CROWELL ([id number]), editor & co founder RICHI HUA ([id number] on 10/25/2018 11:34:45 AM Referred By: CHRISTEL/ODALIS Confirmed By:PIERRE CROWELL
[2018-10-20 19:41] LABS: Thyroid Stim Hormone (TSH) 1.88 uIU/mL (0.358-3.74)
--- NOTE | 2018-10-20 19:43 | ED.RN ---
[facility] CALLED, THEY REQUIRE Q2 HR VITALS FOR THE NEXT TWENTY-FOUR HOURS, AND AN OBGYN CONSULT PRIOR TO BEING CONSIDERED FOR ACCEPTANCE. THIS INFORMATION WAS GIVEN TO REID SOUSA RN, DR JOHNSON, AND CRISIS.
--- NOTE | 2018-10-20 20:03 | ED.RN ---
spoke with Manuela Pearce with [facility] to Eval patient. She will be in to see patient
--- NOTE | 2018-10-20 20:04 | ED.RN ---
Spoke with Cassia with crisis and updated on [place] requests. Patient will need to be observed for 24 hours at this time to monitor for DT with drawl. Seen by OB. Concern for time on Time slip at this time. Per Cassia Goodwin Slip will be fine until patient is seen again in the morning by crisis
--- NOTE | 2018-10-20 21:08 | PCM.CONS.GEN ---
Problem List (1) Substance abuse affecting in second trimester, antepartum Status: Acute (2) Alcohol abuse affecting in second trimester Status: Acute Reason for Consult Date of Consultation: 10/20/18 History of Present Illness: The patient is a 27 year old F [ at 25 weeks 6 days by LMP. Presented to ED on 10/19/18 with alcohol intoxication. History of IV heroin and meth abuse. In 180 program. Patient states last meth use in August and admits that she has been drinking alcohol throughout the since around 16-20 weeks. he patient is a 27 F who presents with alcohol intoxication. She is 6 months . She states she has been drinking daily for at least 5 months. She was brought in by police. She reports suicidal thoughts. She is currently homeless and living in a tent with her partner. Called for consultation of patient to evaluate obstetrically. Patient with no obstetrical complaints. Denies any vaginal bleeding, leakage of fluid, or contractions. 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 Was previously at [employer]. Smoking Status: Current every day smoker Alcohol: Occasional, Heavy - Heavy at times Drugs: - - Meth Review of Systems Eyes: Denies: Blurred vision Cardiovascular: Denies: Chest Pain, Edema Gastrointestinal: Reports: Diarrhea. Denies: Abdominal Pain Psychiatric: Reports: Anxiety, Depression, - - Admits to wanting to harm others Patient Problems: Active and Suspected Problems Substance abuse affecting in second trimester, antepartum (Acute) Alcohol abuse affecting in second trimester (Acute) - Physical Exam General: Alert, Cooperative Extremities: No edema Comment: FHT via doppler 155 Vital Signs Temp Pulse Resp BP Pulse Ox 97.9 F 100 18 139/70 H 98 10/19/18 23:39 10/20/18 20:00 10/20/18 20:00 10/20/18 20:00 10/20/18 20:00 Oxygen Delivery Method Room Air Weight: 315 lb 4.176 oz Body Mass Index (BMI) 49.4 Laboratory Tests Past 24 Hrs 10/19/18 10/19/18 10/19/18 23:59 23:59 23:59 WBC 7.2 RBC 3.70 L Hgb 11.4 L Hct 33.5 L MCV 90.5 MCH 30.8 MCHC 34.0 RDW 14.2 RDW Differential 45.5 H Plt Count 170 MPV 11.2 Immature Gran % (Auto) 0.300 Neut % (Auto) 54.1 Lymph % (Auto) 37.5 [place] % (Auto) 6.9 Eos % (Auto) 1.1 Baso % (Auto) 0.1 Absolute Neuts (auto) 3.9 Absolute Lymphs (auto) 2.71 Total Counted Not Reportable Sodium 143 Potassium 2.9 L Chloride 111 H Carbon Dioxide 26.0 Anion Gap 6 BUN 4 L Creatinine 0.58 Estim Creat Clear Calc 139.18 Est GFR (MDRD) Af Amer 156 Est GFR (MDRD) Non-Af 129 BUN/Creatinine Ratio 6.8 L Glucose 105 Calcium 7.6 L Total Bilirubin 0.20 AST 31 ALT 30 Alkaline Phosphatase 62 Total Protein 6.1 L Albumin 2.6 L Globulin 3.5 Albumin/Globulin Ratio 0.7 L TSH Urine Color Urine Clarity Urine pH Ur Specific [place] Urine Protein Urine Glucose (UA) Urine Ketones Urine Occult Blood Urine Nitrite Urine Bilirubin Urine Urobilinogen Ur Leukocyte Esterase Urine RBC Urine WBC Ur Squamous Epith Cells Urine Bacteria Urine Mucus Urine Opiates Screen Urine Methadone Screen Ur Barbiturates Screen Ur Phencyclidine Scrn Ur Amphetamines Screen U Methamphetamin-MDMA U Benzodiazepines Scrn Urine Cocaine Screen U Cannabinoids Screen Ur Drug Screen Comment Ethyl Alcohol 336.0 H* 10/20/18 10/20/18 10/20/18 00:35 00:35 09:45 WBC RBC Hgb Hct MCV MCH MCHC RDW RDW Differential Plt Count MPV Immature Gran % (Auto) Neut % (Auto) Lymph % (Auto) [place] % (Auto) Eos % (Auto) Baso % (Auto) Absolute Neuts (auto) Absolute Lymphs (auto) Total Counted Sodium 143 Potassium 3.7 Chloride 112 H Carbon Dioxide 27.0 Anion Gap 4 L BUN 7 Creatinine 0.50 L Estim Creat Clear Calc 161.44 Est GFR (MDRD) Af Amer 186 Est GFR (MDRD) Non-Af 154 BUN/Creatinine Ratio 14.0 Glucose 120 H Calcium 7.5 L Total Bilirubin AST ALT Alkaline Phosphatase Total Protein Albumin Globulin Albumin/Globulin Ratio TSH Urine Color Straw Urine Clarity Clear Urine pH 8.0 Ur Specific [place] 1.010 Urine Protein Negative Urine Glucose (UA) Normal Urine Ketones Negative Urine Occult Blood Negative Urine Nitrite Negative Urine Bilirubin Negative Urine Urobilinogen Normal Ur Leukocyte Esterase Negative Urine RBC 0 SEEN Urine WBC 0 SEEN Ur Squamous Epith Cells 0 SEEN Urine Bacteria 0 SEEN Urine Mucus 0 SEEN Urine Opiates Screen NEGATIVE Urine Methadone Screen NEGATIVE Ur Barbiturates Screen NEGATIVE Ur Phencyclidine Scrn NEGATIVE Ur Amphetamines Screen NEGATIVE U Methamphetamin-MDMA NEGATIVE U Benzodiazepines Scrn NEGATIVE Urine Cocaine Screen NEGATIVE U Cannabinoids Screen NEGATIVE Ur Drug Screen Comment Ethyl Alcohol 10/20/18 10/20/18 10/20/18 09:45 09:45 12:00 WBC RBC Hgb Hct MCV MCH MCHC RDW RDW Differential Plt Count MPV Immature Gran % (Auto) Neut % (Auto) Lymph % (Auto) [place] % (Auto) Eos % (Auto) Baso % (Auto) Absolute Neuts (auto) Absolute Lymphs (auto) Total Counted Sodium Potassium Chloride Carbon Dioxide Anion Gap BUN Creatinine Estim Creat Clear Calc Est GFR (MDRD) Af Amer Est GFR (MDRD) Non-Af BUN/Creatinine Ratio Glucose Calcium Total Bilirubin AST ALT Alkaline Phosphatase Total Protein Albumin Globulin Albumin/Globulin Ratio TSH 1.88 Urine Color Urine Clarity Urine pH Ur Specific [place] Urine Protein Urine Glucose (UA) Urine Ketones Urine Occult Blood Urine Nitrite Urine Bilirubin Urine Urobilinogen Ur Leukocyte Esterase Urine RBC Urine WBC Ur Squamous Epith Cells Urine Bacteria Urine Mucus Urine Opiates Screen Urine Methadone Screen Ur Barbiturates Screen Ur Phencyclidine Scrn Ur Amphetamines Screen U Methamphetamin-MDMA U Benzodiazepines Scrn Urine Cocaine Screen U Cannabinoids Screen Ur Drug Screen Comment Ethyl Alcohol 151.0 99.0 Assessment/Plan All Active Problems Substance abuse affecting in second trimester, antepartum (Acute) Alcohol abuse affecting in second trimester (Acute) A: 27 year old female at 25w6d for alcohol intoxication P: 1) Obstetrically patient is stable. No signs of labor. Reviewed labor signs with patient. 2) Patient is ok to be transferred to mental health facility due to threats of harm to self and others. 3) Patient to follow up outpatient obstetrically once she is stable at behavioral health facility. 4) Reviewed patient assessment and plan with and agrees with plan.
--- NOTE | 2018-10-20 21:15 | CON.PCM_ITS ---
Problem List (1) Substance abuse affecting in second trimester, antepartum Status: Acute (2) Alcohol abuse affecting in second trimester Status: Acute Reason for Consult Date of Consultation: 10/20/18 History of Present Illness: The patient is a 27 year old F [ at 25 weeks 6 days by LMP. Presented to ED on 10/19/18 with alcohol intoxication. History of IV heroin and meth abuse. In 180 program. Patient states last meth use in August and admits that she has been drinking alcohol throughout the since around 16-20 weeks. he patient is a 27 F who presents with alcohol intoxication. She is 6 months . She states she has been drinking daily for at least 5 months. She was brought in by police. She reports suicidal thoughts. She is currently homeless and living in a tent with her partner. Called for consultation of patient to evaluate obstetrically. Patient with no obstetrical complaints. Denies any vaginal bleeding, leakage of fluid, or contractions. 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 Was previously at [employer]. Smoking Status: Current every day smoker Alcohol: Occasional, Heavy - Heavy at times Drugs: - - Meth Review of Systems Eyes: Denies: Blurred vision Cardiovascular: Denies: Chest Pain, Edema Gastrointestinal: Reports: Diarrhea. Denies: Abdominal Pain Psychiatric: Reports: Anxiety, Depression, - - Admits to wanting to harm others Patient Problems: Active and Suspected Problems Substance abuse affecting in second trimester, antepartum (Acute) Alcohol abuse affecting in second trimester (Acute) - Physical Exam General: Alert, Cooperative Extremities: No edema Comment: FHT via doppler 155 Vital Signs Temp Pulse Resp BP Pulse Ox 97.9 F 100 18 139/70 H 98 10/19/18 23:39 10/20/18 20:00 10/20/18 20:00 10/20/18 20:00 10/20/18 20:00 Oxygen Delivery Method Room Air Weight: 315 lb 4.176 oz Body Mass Index (BMI) 49.4 Laboratory Tests Past 24 Hrs 10/19/18 10/19/18 10/19/18 23:59 23:59 23:59 WBC 7.2 RBC 3.70 L Hgb 11.4 L Hct 33.5 L MCV 90.5 MCH 30.8 MCHC 34.0 RDW 14.2 RDW Differential 45.5 H Plt Count 170 MPV 11.2 Immature Gran % (Auto) 0.300 Neut % (Auto) 54.1 Lymph % (Auto) 37.5 [place] % (Auto) 6.9 Eos % (Auto) 1.1 Baso % (Auto) 0.1 Absolute Neuts (auto) 3.9 Absolute Lymphs (auto) 2.71 Total Counted Not Reportable Sodium 143 Potassium 2.9 L Chloride 111 H Carbon Dioxide 26.0 Anion Gap 6 BUN 4 L Creatinine 0.58 Estim Creat Clear Calc 139.18 Est GFR (MDRD) Af Amer 156 Est GFR (MDRD) Non-Af 129 BUN/Creatinine Ratio 6.8 L Glucose 105 Calcium 7.6 L Total Bilirubin 0.20 AST 31 ALT 30 Alkaline Phosphatase 62 Total Protein 6.1 L Albumin 2.6 L Globulin 3.5 Albumin/Globulin Ratio 0.7 L TSH Urine Color Urine Clarity Urine pH Ur Specific [place] Urine Protein Urine Glucose (UA) Urine Ketones Urine Occult Blood Urine Nitrite Urine Bilirubin Urine Urobilinogen Ur Leukocyte Esterase Urine RBC Urine WBC Ur Squamous Epith Cells Urine Bacteria Urine Mucus Urine Opiates Screen Urine Methadone Screen Ur Barbiturates Screen Ur Phencyclidine Scrn Ur Amphetamines Screen U Methamphetamin-MDMA U Benzodiazepines Scrn Urine Cocaine Screen U Cannabinoids Screen Ur Drug Screen Comment Ethyl Alcohol 336.0 H* 10/20/18 10/20/18 10/20/18 00:35 00:35 09:45 WBC RBC Hgb Hct MCV MCH MCHC RDW RDW Differential Plt Count MPV Immature Gran % (Auto) Neut % (Auto) Lymph % (Auto) [place] % (Auto) Eos % (Auto) Baso % (Auto) Absolute Neuts (auto) Absolute Lymphs (auto) Total Counted Sodium 143 Potassium 3.7 Chloride 112 H Carbon Dioxide 27.0 Anion Gap 4 L BUN 7 Creatinine 0.50 L Estim Creat Clear Calc 161.44 Est GFR (MDRD) Af Amer 186 Est GFR (MDRD) Non-Af 154 BUN/Creatinine Ratio 14.0 Glucose 120 H Calcium 7.5 L Total Bilirubin AST ALT Alkaline Phosphatase Total Protein Albumin Globulin Albumin/Globulin Ratio TSH Urine Color Straw Urine Clarity Clear Urine pH 8.0 Ur Specific [place] 1.010 Urine Protein Negative Urine Glucose (UA) Normal Urine Ketones Negative Urine Occult Blood Negative Urine Nitrite Negative Urine Bilirubin Negative Urine Urobilinogen Normal Ur Leukocyte Esterase Negative Urine RBC 0 SEEN Urine WBC 0 SEEN Ur Squamous Epith Cells 0 SEEN Urine Bacteria 0 SEEN Urine Mucus 0 SEEN Urine Opiates Screen NEGATIVE Urine Methadone Screen NEGATIVE Ur Barbiturates Screen NEGATIVE Ur Phencyclidine Scrn NEGATIVE Ur Amphetamines Screen NEGATIVE U Methamphetamin-MDMA NEGATIVE U Benzodiazepines Scrn NEGATIVE Urine Cocaine Screen NEGATIVE U Cannabinoids Screen NEGATIVE Ur Drug Screen Comment Ethyl Alcohol 10/20/18 10/20/18 10/20/18 09:45 09:45 12:00 WBC RBC Hgb Hct MCV MCH MCHC RDW RDW Differential Plt Count MPV Immature Gran % (Auto) Neut % (Auto) Lymph % (Auto) [place] % (Auto) Eos % (Auto) Baso % (Auto) Absolute Neuts (auto) Absolute Lymphs (auto) Total Counted Sodium Potassium Chloride Carbon Dioxide Anion Gap BUN Creatinine Estim Creat Clear Calc Est GFR (MDRD) Af Amer Est GFR (MDRD) Non-Af BUN/Creatinine Ratio Glucose Calcium Total Bilirubin AST ALT Alkaline Phosphatase Total Protein Albumin Globulin Albumin/Globulin Ratio TSH 1.88 Urine Color Urine Clarity Urine pH Ur Specific [place] Urine Protein Urine Glucose (UA) Urine Ketones Urine Occult Blood Urine Nitrite Urine Bilirubin Urine Urobilinogen Ur Leukocyte Esterase Urine RBC Urine WBC Ur Squamous Epith Cells Urine Bacteria Urine Mucus Urine Opiates Screen Urine Methadone Screen Ur Barbiturates Screen Ur Phencyclidine Scrn Ur Amphetamines Screen U Methamphetamin-MDMA U Benzodiazepines Scrn Urine Cocaine Screen U Cannabinoids Screen Ur Drug Screen Comment Ethyl Alcohol 151.0 99.0 Assessment/Plan All Active Problems Substance abuse affecting in second trimester, antepartum (Acute) Alcohol abuse affecting in second trimester (Acute) A: 27 year old female at 25w6d for alcohol intoxication P: 1) Obstetrically patient is stable. No signs of labor. Reviewed labor signs with patient. 2) Patient is ok to be transferred to mental health facility due to threats of harm to self and others. 3) Patient to follow up outpatient obstetrically once she is stable at behavioral health facility. 4) Reviewed patient assessment and plan with and agrees with plan.
[2018-10-21] VITALS (8 sets, daily range): BP systolic 114–142; BP diastolic 54–82; PULSE 77–95; RESP 14–18; TEMP 37; O2SAT 95–98
[2018-10-21] MEDS: Thyroid 15 MG Tablet 30 MG PO (10:48)
[2018-10-21] MEDS: Prenatal Vits Tablet 1 TABLET PO (10:48)
[2018-10-21] MEDS: Citalopram 40 MG TABLET PO (10:48)
[2018-10-21] MEDS: lamoTRIgine 100 MG Tablet PO (10:50)
--- NOTE | 2018-10-21 13:16 | ED.DEP ---
ED Disposition - Plan for ED Patient: Instructions: ED Alcohol Abuse Referrals: Jony Vásquez MD [Primary Care Provider] - Additional Instructions: follow up as advised by crisis
== END 2018-10-21 13:29 | disposition home or self-care (01) ==
LOC: ED 10-20 00:18
PROVIDERS: Emergency Medicine; Emergency Provider Emergency Medicine; Family Provider Family Medicine; PCP Family Medicine
DX: O26.892 Other specified pregnancy related conditions, second trimester (principal); R45.851 Suicidal ideations; O99.312 Alcohol use complicating pregnancy, second trimester; F10.129 Alcohol abuse with intoxication, unspecified; Y90.9 Presence of alcohol in blood, level not specified; O99.322 Drug use complicating pregnancy, second trimester; F11.10 Opioid abuse, uncomplicated; F15.10 Other stimulant abuse, uncomplicated; O99.342 Other mental disorders complicating pregnancy, second trimester; F41.9 Anxiety disorder, unspecified; F32.9 Major depressive disorder, single episode, unspecified; F31.9 Bipolar disorder, unspecified; O99.332 Smoking (tobacco) complicating pregnancy, second trimester; F17.200 Nicotine dependence, unspecified, uncomplicated; Z3A.25 25 weeks gestation of pregnancy; Z59.0 Homelessness; Z79.899 Other long term (current) drug therapy
CPT/HCPCS: 80048; 80053; 80307; 80320; 81001; 84443; 85025; 93005; 96374; 96376; 99285; A4216; G0480

== ENCOUNTER 2018-12-13 16:00 | Outpatient (CLI) | payer MEDICAID, SELFPAY ==
[2018-12-13 16:20] VITALS: BMI 48.4
--- NOTE | 2018-12-13 18:34 | OB.TRI.NOTE ---
History of Present Illness Date of Service: 12/13/18 Was patient seen by the physician?: No Reason For Visit: NST Date of Service: 12/13/18 Final RACHEL: 02/01/19 Gestational age: 32 Weeks and 6 Days History of Present Illness: 28-year-old 7 para 0 at 32+ gestational weeks presents for NST from the office. She had a biophysical profile for what appears to be mild idiopathic polyhydramnios associated with an LGA fetus. Her BPP was 6 out of 8, and we are having trouble obtaining a monitoring strip in the office. Due to the limitations of our tables and positioning, patient was sent to labor and delivery to obtain a nonstress test. Allergies divalproex sodium [From Depakote] Allergy (Verified 10/19/18 23:51) Rash meloxicam Allergy (Verified 10/19/18 23:51) Rash swelling nicotine [From Nicoderm CQ] Adverse Reaction (Verified 10/19/18 23:51) Rash NST - FHR Rate Baby A Baseline: 130 Variability:: Moderate Accelerations:: 15 x 15 Decelerations:: None NST Reactive:: Yes, Appropriate for gestational age FHR Category:: Category I Uterine Activity:: No contractions Impression/Plan 28-year-old 7 para 0060 at the 32-6/7 weeks gestation. Nonstress test is reactive. This makes BPP 8 out of 10 and is reassuring. Patient is to perform kick counts and follow-up in the office next week. Patient is a high risk multigravida, morbid obesity with BMI of 48, LGA fetus, mild idiopathic polyhydramnios, history of drug use during .
== END 2018-12-13 17:30 | disposition home or self-care (01) ==
LOC: WPOUT 16:05 → WP 16:06
PROVIDERS: Family Provider Family Medicine; PCP Family Medicine; Referring Provider Obstetrics & Gynecology; Visit Provider Obstetrics & Gynecology
DX: O40.3XX0 Polyhydramnios, third trimester, not applicable or unspecified (principal); O09.93 Supervision of high risk pregnancy, unspecified, third trimester; O99.213 Obesity complicating pregnancy, third trimester; E66.01 Morbid (severe) obesity due to excess calories; O99.323 Drug use complicating pregnancy, third trimester; F19.90 Other psychoactive substance use, unspecified, uncomplicated; Z3A.32 32 weeks gestation of pregnancy
CPT/HCPCS: 59025; 59050; 99218; G0378

== ENCOUNTER 2019-01-17 17:10 | Outpatient (CLI) | payer MEDICAID, SELFPAY ==
[2019-01-17 17:56] VITALS: BMI 50.0
[2019-01-17] MEDS: Lactated Ringers 1,000 ML 999 ML IV (19:10)
[2019-01-17 19:21] LABS: Absolute Lymphocyte Count 2.37 X10^3/uL (0.83-4.51); Absolute Neutrophil Count 6.4 X10^3/uL (2.0-7.7); Basophil# 0.04 X10^3/uL; Basophil% 0.4 % (0-1); Eosinophil# 0.12 X10^3/uL; Eosinophils% 1.3 % (0-5); Hematocrit 37.5 % (37-47); Hemoglobin 12.3 g/dL (12.0-15.0); Lymphocyte # 2.37 X10^3/ul (4.0); Lymphocyte % 24.8 % (19-41); Mean Corp Hgb Conc 32.8 g/dL (32-36); Mean Corpuscular Hgb 31.5 pg (27.0-32.0); Mean Corpuscular Volume 95.9 fL (81-99); Monocyte# 0.61 X10^3/uL; Monocyte% 6.4 % (0-10); NRBC Flagged by Analyzer 0 % (0-5); Neutrophil # 6.35 X10^3/uL (2.7-7.7); Neutrophil % 66.6 % (47-70); Platelet Count 214 K/mm3 (150-450); RBC Distribution Width CV 14.3 % (11.6-14.6); RBC Distribution Width SD 50.3 fl (35.1-43.9); Red Blood Count 3.91 M/mm3 (4.2-5.4); White Blood Count 9.5 K/mm3 (4.4-11.0)
--- NOTE | 2019-01-17 20:26 | US_ITS ---
STUDY: OBSTETRICAL ULTRASOUND - BIOPHYSICAL PROFILE REASON FOR EXAM: Female, 28 years old. Evaluate well being. LMP: April 22, 2018 PRIOR ULTRASOUND: None. TECHNIQUE: Transabdominal TECHNICAL QUALITY: Adequate. FINDINGS: There is a single intrauterine fetus. The fetus is in a cephalic presentation. There is demonstrated cardiac activity with a heart rate of 147 bpm. There is a normal amniotic fluid volume. The largest amniotic fluid pocket measures 5.1 cm. The amniotic fluid index (LIZ) is 13.8 cm. The placenta is posterior in location and is not low lying. Age by LMP: 38 weeks, 4 days. RACHEL by LMP: January 27, 2019. age by prior US: 38 weeks, 3 days. RACHEL by prior US: January 28, 2019. BIOPHYSICAL PROFILE: Breathing Movements (FBM): 0 Gross Body Movements (GBM): 2 Tone (FT): 2 Amniotic Fluid Volume (AFV): 2 TOTAL SCORE: 6 / 8 US/Biophysical Profile IMPRESSION: Abnormal biophysical profile of 6/8. There is no breathing movement seen. Electronically Signed: Titi Crespo MD at 22:10 EDT , Service support ,
--- NOTE | 2019-01-17 20:41 | US_ITS ---
STUDY: SECOND AND THIRD TRIMESTER OBSTETRICAL ULTRASOUND REASON FOR EXAM: Female, 28 years old. Evaluate well being. LMP: April 22, 2018 PRIOR ULTRASOUND: None. TECHNIQUE: Transabdominal TECHNICAL QUALITY: Adequate. FINDINGS: There is a single intrauterine fetus. The fetus is in a cephalic presentation. There is demonstrated cardiac activity with a heart rate of 147 bpm. There is a normal amniotic fluid volume. The largest amniotic fluid pocket measures 5.1 cm. The amniotic fluid index (LIZ) is 13.8 cm. The placenta is posterior in location and is not low lying. BIOMETRY: BPD: 9.1 cm: 37 weeks, 1 days HC: 33.7 cm: 38 weeks, 5 days AC: 35.7 cm: 39 weeks, 5 days FL: 7.3 cm: 37 weeks, 2 days age by current US: 38 weeks, 2 days. RACHEL by current US: January 29, 2019. Estimated weight: 3562 grams, +/- 520 grams, 81 %. Age by LMP: 38 weeks, 4 days. RACHEL by LMP: January 27, 2019. age by prior US: 38 weeks, 3 days. RACHEL by prior US: January 28, 2019. . US/OB Limited With Biometrics IMPRESSION: Single intrauterine gestation 38 weeks 2 days with estimated due date January 29, 2019. Estimated weight 3562 g. Electronically Signed: Titi Crespo MD at 22:25 EDT , Service support ,
[2019-01-17 21:14] LABS: Amphetamine Urine VISTA NEGATIVE (<1000 ng/mL); Barbiturate Urine VISTA NEGATIVE (< 200 ng/mL); Benzodiazepine Urine VISTA NEGATIVE (< 200 ng/mL); Cocaine Urine VISTA NEGATIVE (< 300 ng/mL); Ecstacy Urine VISTA NEGATIVE (< 500 ng/mL); Methadone Urine VISTA NEGATIVE (< 300 ng/mL); PCP Urine VISTA NEGATIVE (< 25 ng/mL); THC Urine VISTA NEGATIVE (< 50 ng/mL); Vista UDS pH Range 6
--- NOTE | 2019-01-18 12:15 | OB.TRI.HP_ITS ---
History of Present Illness Date of Service: 01/17/19 Was patient seen by the physician?: No Reason For Visit: MONITORING Date of Service: 01/17/19 Final RACHEL: 02/01/19 Final RACHEL Source: US <20 weeks Gestational age: 37 6/7 Allergies divalproex sodium [From Depakote] Allergy (Verified 10/19/18 23:51) Rash meloxicam Allergy (Verified 10/19/18 23:51) Rash swelling nicotine [From Nicoderm CQ] Adverse Reaction (Verified 10/19/18 23:51) Rash Laboratory Studies: Laboratory Tests 01/17/19 01/17/19 01/17/19 Range/Units 20:15 19:10 19:10 WBC 9.5 (4.4-11.0) K/mm3 RBC 3.91 L (4.2-5.4) M/mm3 Hgb 12.3 (12.0-15.0) g/dL Hct 37.5 (37-47) % MCV 95.9 (81-99) fL MCH 31.5 (27.0-32.0) pg MCHC 32.8 (32-36) g/dL RDW Std Deviation 50.3 H (35.1-43.9) fl RDW Coeff of Stacey 14.3 (11.6-14.6) % Plt Count 214 (150-450) K/mm3 MPV 11.0 (6.2-12.0) fl Immature Gran % (Auto) 0.500 (0.0-0.9) % Neut % (Auto) 66.6 (47-70) % Lymph % (Auto) 24.8 (19-41) % [place] % (Auto) 6.4 (0-10) % Eos % (Auto) 1.3 (0-5) % Baso % (Auto) 0.4 (0-1) % Absolute Neuts (auto) 6.4 (2.0-7.7) X10^3/uL Absolute Lymphs (auto) 2.37 (0.83-4.51) X10^3/uL Nucleated RBC % 0 (0-5) % Urine Opiates Screen NEGATIVE (< 300 ng/mL) Urine Methadone Screen NEGATIVE (< 300 ng/mL) Ur Barbiturates Screen NEGATIVE (< 200 ng/mL) Ur Phencyclidine Scrn NEGATIVE (< 25 ng/mL) Ur Amphetamines Screen NEGATIVE (<1000 ng/mL) U Methamphetamin-MDMA NEGATIVE (< 500 ng/mL) U Benzodiazepines Scrn NEGATIVE (< 200 ng/mL) Urine Cocaine Screen NEGATIVE (< 300 ng/mL) U Cannabinoids Screen NEGATIVE (< 50 ng/mL) Ur Drug Screen Comment Blood Type A POSITIVE Antibody Screen NEGATIVE NST - FHR Rate Baby A Baseline: 140 Variability:: Minimal, Moderate Accelerations:: 15 x 15, 10 x 10 Decelerations:: None - none traced but broken up often NST Reactive:: Non-Reactive FHR Category:: Category I Uterine Activity:: irreg ctxs Impression/Plan high risk w/ variable decels but reactive NST in the office. Morbid obesity, BMI 50, opiod use disorder with mostly category 1 tracing, but not reactive. After hours of attempted monitoring w/ nursing even holding monitor, patient unable to tolerate positions the heart rate was tracing or tracing brok up b/c of movement. BPP /10. Normal fluid and growth. Ok to d/c home w/ kick couts nad f/u in the office 01/18 for repeat BPP. patient agrees w/ plan.
== END 2019-01-17 22:08 | disposition home or self-care (01) ==
LOC: WPOUT 17:13 → WP 17:14
PROVIDERS: Family Provider Family Medicine; PCP Family Medicine; Referring Provider Obstetrics & Gynecology; Visit Provider Obstetrics & Gynecology
DX: O76 Abnormality in fetal heart rate and rhythm complicating labor and delivery (principal); O99.213 Obesity complicating pregnancy, third trimester; E66.01 Morbid (severe) obesity due to excess calories; O09.93 Supervision of high risk pregnancy, unspecified, third trimester; O99.323 Drug use complicating pregnancy, third trimester; F11.90 Opioid use, unspecified, uncomplicated; Z3A.37 37 weeks gestation of pregnancy
CPT/HCPCS: 96360; 36415; 59025; 59050; 76815; 76816; 76818; 80307; 85025; 86850; 86900; 86901; 94760; 99218; J7120; G0378

== ENCOUNTER 2019-01-19 13:55 | Inpatient (IN) | payer MEDICAID, SELFPAY ==
[2019-01-19 14:28] VITALS: BMI 51.2
[2019-01-19] MEDS: Lactated Ringers 1,000 ML 50 ML IV (15:30)
[2019-01-19 15:56] LABS: Absolute Lymphocyte Count 2.11 X10^3/uL (0.83-4.51); Absolute Neutrophil Count 5.6 X10^3/uL (2.0-7.7); Basophil# 0.03 X10^3/uL; Basophil% 0.4 % (0-1); Eosinophil# 0.13 X10^3/uL; Eosinophils% 1.5 % (0-5); Hematocrit 35.8 % (37-47); Hemoglobin 11.9 g/dL (12.0-15.0); Lymphocyte # 2.11 X10^3/ul (4.0); Mean Corp Hgb Conc 33.2 g/dL (32-36); Mean Corpuscular Hgb 32.1 pg (27.0-32.0); Mean Corpuscular Volume 96.5 fL (81-99); Mean Platelet Vol. 11.1 fl (6.2-12.0); Monocyte# 0.55 X10^3/uL; Monocyte% 6.5 % (0-10); NRBC Flagged by Analyzer 0 % (0-5); Neutrophil # 5.61 X10^3/uL (2.7-7.7); Neutrophil % 66.4 % (47-70); Platelet Count 201 K/mm3 (150-450); RBC Distribution Width CV 14.4 % (11.6-14.6); RBC Distribution Width SD 50.4 fl (35.1-43.9); Red Blood Count 3.71 M/mm3 (4.2-5.4); White Blood Count 8.5 K/mm3 (4.4-11.0)
[2019-01-19] MEDS: Oxytocin 30 units/NS 500 ml 30 UNITS/500 ML IV.SOLN IV (16:15)
--- NOTE | 2019-01-19 16:22 | PCM.HP.OB ---
- Problem List (1) Maternal obesity affecting , antepartum Status: Acute (2) Recurrent loss Status: Acute (3) Poor growth affecting management of mother Status: Acute History Date of Admission: 01/19/19 Final RACHEL: 01/27/19 Final RACHEL Source: US <20 weeks Gestational age: 38 Weeks and 6 Days History of this : This is a 28 year-old, G [7], P [0060], at 38w3d weeks gestational age. Presented to L&D for induction of labor due to poor weight gain and recommended induction of labor by , [facility]. Allergies divalproex sodium [From Depakote] Allergy (Verified 10/19/18 23:51) Rash meloxicam Allergy (Verified 10/19/18 23:51) Rash swelling nicotine [From Nicoderm CQ] Adverse Reaction (Verified 10/19/18 23:51) Rash Home Medications: Home Medications Citalopram [Celexa] 40 mg PO DAILY 05/23/15 Lamotrigine [Lamictal] 100 mg PO BID 05/23/15 Thyroid,Pork [[place] Thyroid] 30 mg PO DAILY 05/23/15 Pnv No.95/Ferrous Fum/Folic AC [ Caplet] 1 each PO DAILY 06/29/18 Ferrous Sulfate [Iron] 325 mg PO BID 01/17/19 Omeprazole [Prilosec] 10 mg PO BID 01/17/19 Smoking Status: Light Smoker (<10/day) Alcohol: None Substance Use Type: Alcohol - Use during . Number of Fetus(es): 1 NST - FHR Rate Baby A Baseline: 140 Variability:: Minimal Accelerations:: 15 x 15 Decelerations:: Variable FHR Category:: Category II Uterine Activity:: None History Past Pregnancies: Past Pregnancies Delivery Date Name GA/Weeks Outcome Route Weight Gender Labor Length Anesthesia Delivery Location Provider FOB Labs: A positive GBS negative Rubella immune HBsAG negative HIV negative Hep C negative GC/CT negative Expected Delivery Method: Spontaneous Vaginal Review of Systems Constitutional: Denies: Chills, Fever, Weight Change Eyes: Denies: Blurred vision HEENT: Denies: Head Aches, Sinus Congestion, Sinus Drainage Cardiovascular: Denies: Chest Pain, Palpitations Respiratory: Denies: Cough, Shortness of breath at rest, Sputum production Gastrointestinal: Denies: Abdominal Pain, Nausea, Vomiting Genitourinary: Denies: Dysuria Musculoskeletal: Denies: Joint Pain, Joint Tenderness Skin: Denies: Rash, Wounds Neurological: Denies: Numbness, Tingling, Focal weakness Psychiatric: Denies: Anxiety, Depression, Homicidal Ideations, Suicidal Ideations Physical Exam General: Alert, Oriented x3, No apparent distress HEENT: Atraumatic, Normocephalic Cardiovascular: Regular rate, Regular Rhythm, No murmurs Lungs: Clear to auscultation, Normal air movement, No rhonchi, No wheeze Abdomen: Bowel Sounds Present, Gravid Extremities:: No edema Neurological: Deep Tendon Reflexes 2+/4 and Symmetrical CRM SOLUTION ARCHITECT: Normal external genitalia Estimated gestational size: Appropriate for gestational size Presentation: Cephalic Cervix Dilation (cm): 3.5 Station: -3 Effacement (%): 60 Assessment/Plan All Active Problems Substance abuse affecting in second trimester, antepartum (Acute) Alcohol abuse affecting in second trimester (Acute) Maternal obesity affecting , antepartum (Acute) Recurrent loss (Acute) Poor growth affecting management of mother (Acute) This is a 28 year-old, G [7], P [0060], at 38w3d weeks gestational age. Induction of labor Category 2 FHT P: 1) Routine labs. Reviewed with patient IOL r/b/a and consents to induction 2) Epidural for pain management upon patient request 3) Pitocin for IOL. 3.5/60%/-3 IBOW vertex 4) notified of patient status.
--- NOTE | 2019-01-19 17:59 | PCM.PN.OB ---
Subjective: Resting sitting up in bed. Family at bedside. Unable to trace baby on monitor due to body habitus and only able to trace heart rate in one position. Objective: Difficulty tracing FHT, unable to assess TOCO:Irregular Cervix 4cm/70%/-2 AROM for moderate amount of clear fluid. FSE placed, patient tolerated well. - Physical Exam Weight: 327 lb 2.656 oz Body Mass Index (BMI) 51.2 Intake and Output for Last 24 Hours 01/17/19 01/18/19 01/19/19 23:59 23:59 23:59 Intake Total 5.30 / 5.30 Balance 5.30 / 5.30 Laboratory Tests Past 24 Hrs 01/19/19 01/19/19 15:30 15:30 WBC 8.5 RBC 3.71 L Hgb 11.9 L Hct 35.8 L MCV 96.5 MCH 32.1 H MCHC 33.2 RDW Std Deviation 50.4 H RDW Coeff of Stacey 14.4 Plt Count 201 MPV 11.1 Immature Gran % (Auto) 0.200 Neut % (Auto) 66.4 Lymph % (Auto) 25.0 [place] % (Auto) 6.5 Eos % (Auto) 1.5 Baso % (Auto) 0.4 Absolute Neuts (auto) 5.6 Absolute Lymphs (auto) 2.11 Nucleated RBC % 0 Blood Type Pending Antibody Screen Pending Medical Necessity - Tobacco Use Smoking Status: Current every day smoker Assessment/Plan All Active Problems Substance abuse affecting in second trimester, antepartum (Acute) Alcohol abuse affecting in second trimester (Acute) A: Induction of labor Maternal obesity P: 1) Reviewed with patient AROM and FSE placement due to inability to adequately monitor status. Consented to plan. Tolerated procedure well. 2) Continue with active management.
[2019-01-19] MEDS: Lactated Ringers 500 ML 999 ML IV ×2 (18:15→23:43)
[2019-01-19] MEDS: fentaNYL-bupivacaine (epidural) 100 ML BAG EPIDURAL ×2 (18:52→23:05)
[2019-01-19 18:58] LABS: Amphetamine Urine VISTA NEGATIVE (<1000 ng/mL); Barbiturate Urine VISTA NEGATIVE (< 200 ng/mL); Benzodiazepine Urine VISTA NEGATIVE (< 200 ng/mL); Cocaine Urine VISTA NEGATIVE (< 300 ng/mL); Ecstacy Urine VISTA NEGATIVE (< 500 ng/mL); Methadone Urine VISTA NEGATIVE (< 300 ng/mL); PCP Urine VISTA NEGATIVE (< 25 ng/mL); THC Urine VISTA NEGATIVE (< 50 ng/mL); Vista UDS pH Range 6
[2019-01-19] MEDS: Lactated Ringers 1,000 ML 200 ML IV (20:50)
[2019-01-19] MEDS: Acetaminophen 325 MG Tablet PO (22:11)
[2019-01-20] MEDS: Lactated Ringers 500 ML 999 ML IV (01:46)
[2019-01-20] MEDS: Amnioinfusion- 0.9% NS 1,000 ML IV.SOLN. 200 ML INTRA-UTER (02:22)
[2019-01-20] MEDS: Lactated Ringers 1,000 ML 200 ML IV (03:13)
[2019-01-20] MEDS: fentaNYL-bupivacaine (epidural) 100 ML BAG EPIDURAL (04:06)
[2019-01-20] MEDS: Oxytocin 30 units/NS 500 ml 30 UNITS/500 ML IV.SOLN 334 UNITS IV (06:04)
--- NOTE | 2019-01-20 07:11 | PCM.OPRPT ---
Problem List (1) Maternal obesity affecting , antepartum Status: Acute (2) Recurrent loss Status: Acute (3) Poor growth affecting management of mother Status: Acute (4) Vaginal delivery Status: Acute (5) Shoulder dystocia, delivered Status: Acute Vaginal Delivery Maternal Presentation: Medically Indicated Induction Method of Induction: Pitocin Amniotic Fluid Description: Clear - with initial rupture of membranes, Moderate meconium - prior to delivery Final RACHEL: 01/27/19 Gestational age: 39 Weeks and 0 Days Date of Procedure: 01/20/19 Pre-Operative Diagnosis: Medically Indicated Induction of Labor Post-Operative Diagnosis: Surgery/ Procedure Performed: Spontaneous Vaginal Delivery Type of Anesthesia: Epidural Description of Procedure: Progressed to complete with urge to push. Minimal variability with recurrent variable decelerations down to 50's with pushing and then recovered to 130's. Meconium fluid. Near delivery with good pushing efforts. Respiratory and peds called to delivery. notified of status and imminent delivery, will deliver prior to her arrival. Head delivered with positive turtle sign, body not forthcoming, McRobert's done and unable to perform suprapubic due to body habitus. Internal maneuvers and retrieval of posterior arm with body forthcoming, approximately 2 minute shoulder dystocia. CAN x1, loose, delivered through. delivered, poor tone, color and respiratory effort. Cord immediately clamped and cut, passed to nursing staff on radiate warmer. Suctioned for secretions and CPAP for respiratory support for baby, attended by . Female , APGARS 6,8. Pitocin started for active 3rd stage management. Placenta delivered via maternal effort, intact, 3 vessel cord. Perineum inspected and revealed first degree vaginal laceration, repaired under epidural analgesia with 3.0 vicryl. Fundus firm, hemostasis achieved, EBL 350ml.. Vaginal sweep, sponge and instrument count correct. Baby placed skin to skin, mom and baby stable. Planning to breastfeed. Family bonding well. notified of status. Cord gases sent. Presentation: Vertex Placental Delivery Description: Spontaneous Placenta Disposition: [facility] Cord Vessel Description: 3 Vessels Cord Gases drawn per routine: ABG, VBG Cord Entanglement: Around neck x 1, loose Estimated Blood Loss: 350ml Infant A gender: Female (1 minute): 6 (5 minute): 8 Episiotomy Description: None Laceration: 1st degree - vaginal Medications given after delivery: IV Pitocin Complications: None - Shoulder dystocia
[2019-01-20] MEDS: Citalopram 20 MG Tablet 40 MG PO (10:48)
[2019-01-20] MEDS: Thyroid 15 MG Tablet 30 MG PO (10:48)
[2019-01-20] MEDS: lamoTRIgine 100 MG Tablet PO (10:48)
[2019-01-20] MEDS: Ibuprofen 600 MG Tablet PO (11:06)
[2019-01-20 11:27] VITALS: BP 107/54; PULSE 83; RESP 16; TEMP 36.6; O2SAT 95
--- NOTE | 2019-01-20 11:34 | PN.OBGYN_ITS ---
Patient Problems: Active and Suspected Problems Maternal obesity affecting , antepartum (Acute) Recurrent loss (Acute) Poor growth affecting management of mother (Acute) Vaginal delivery (Acute) Shoulder dystocia, delivered (Acute) Subjective: Baby with hypoglycemia. Being transferred to [facility] in [place], no beds in [facility]. Patient requesting discharge to go with baby. Lives at [facility]. Partner and mother here. - Physical Exam General: Alert, Oriented x3, Cooperative HEENT: Atraumatic, Normocephalic Neck: Trachea Midline Lungs: Clear to auscultation, Normal air movement, No rhonchi, No wheeze Cardiovascular: Regular rate, Regular Rhythm, No murmurs Abdomen: Bowel Sounds Present, - - Fundus firm. Lochia rubra, no clots Extremities: No edema Psych/Mental Status: Normal Affect, Appropriate Vital Signs Temp Pulse Resp BP Pulse Ox 97.8 F 83 16 107/54 L 95 01/20/19 11:27 01/20/19 11:27 01/20/19 11:27 01/20/19 11:27 01/20/19 11:27 Oxygen Delivery Method Room Air Weight: 327 lb 2.656 oz Body Mass Index (BMI) 51.2 Intake and Output for Last 24 Hours 01/18/19 01/19/19 01/20/19 23:59 23:59 23:59 Intake Total 1649.73 / 1649.73 2967.53 / 2967.53 Output Total 850 / 850 Balance 1649.73 / 1649.73 2117.53 / 2117.53 Laboratory Tests Past 24 Hrs 01/19/19 01/19/19 01/19/19 15:30 15:30 18:25 WBC 8.5 RBC 3.71 L Hgb 11.9 L Hct 35.8 L MCV 96.5 MCH 32.1 H MCHC 33.2 RDW Std Deviation 50.4 H RDW Coeff of Stacey 14.4 Plt Count 201 MPV 11.1 Immature Gran % (Auto) 0.200 Neut % (Auto) 66.4 Lymph % (Auto) 25.0 [place] % (Auto) 6.5 Eos % (Auto) 1.5 Baso % (Auto) 0.4 Absolute Neuts (auto) 5.6 Absolute Lymphs (auto) 2.11 Nucleated RBC % 0 Urine Opiates Screen NEGATIVE Urine Methadone Screen NEGATIVE Ur Barbiturates Screen NEGATIVE Ur Phencyclidine Scrn NEGATIVE Ur Amphetamines Screen NEGATIVE U Methamphetamin-MDMA NEGATIVE U Benzodiazepines Scrn NEGATIVE Urine Cocaine Screen NEGATIVE U Cannabinoids Screen NEGATIVE Ur Drug Screen Comment Blood Type A POSITIVE Antibody Screen NEGATIVE Medical Necessity - Tobacco Use Smoking Status: Current every day smoker Assessment/Plan All Active Problems Substance abuse affecting in second trimester, antepartum (Acute) Alcohol abuse affecting in second trimester (Acute) Maternal obesity affecting , antepartum (Acute) Recurrent loss (Acute) Poor growth affecting management of mother (Acute) Vaginal delivery (Acute) Shoulder dystocia, delivered (Acute) A: P: 1) Requesting discharge due to baby being transferred. 2) To follow up in 2 weeks and 6 weeks for care. Reviewed signs of pre-e, bleeding precautions and when to call.
--- NOTE | 2019-01-20 11:41 | DCINST_ITS ---
Discharge Diet: No Restrictions Discharge Activity: Return to Normal Activity, May Drive, May Shower, May Take a Tub Bath May resume sexual activity in: 4-6 weeks Weight Bearing Status: Full weight bearing Additional Activity Instructions:: Nothing in the vagina for 4-6 weeks. You may return to work/school in 6 weeks. Call your doctor if your incision/area has: Continuous Slow Oozing, Sudden Increased Bleeding, Increased Pain/ Swelling, Increased Redness, Foul Smelling Discharge Call your doctor if you observe: Fever of 101 or Higher, Inability to urinate, Inability to have a bowel movement, Using more than one pad per hour, Shortness of breath, Uncontrolled pain Additional Instructions: If you experience any of the following, contact your healthcare provider. * Bleeding that soaks a pad every hour for 2 hours * Fever 100.4 or higher * Unrelieved incision or abdominal pain * Swelling, redness, discharge or bleeding from your incision or episiotomy site * Your incision begins to separate * Problems urinating (including inability to urinate or burning while urinating). * Visual changes * Severe headache * Flu-like symptoms * Pain or redness in one of both of your breasts * Pain, warmth, tenderness or swelling in your legs, especially the calf area * Frequent nausea and vomiting * Symptoms of depression or anxiety If you experience any of the following, call 911 or go to the nearest Emergency Room. * Chest pain * Problems breathing * Seizure activity * Partial or complete paralysis of a body part, slurred speech, weakness or drooping of the face, or a sudden inability to walk or hold your balance Allergies/Adverse Reactions: Allergies divalproex sodium [From Depakote] Allergy (Verified 10/19/18 23:51) Rash meloxicam Allergy (Verified 10/19/18 23:51) Rash swelling nicotine [From Nicoderm CQ] Adverse Reaction (Verified 10/19/18 23:51) Rash Medications to take at Discharge Citalopram [Celexa] 40 mg PO DAILY 05/23/15 Lamotrigine [Lamictal] 100 mg PO BID 05/23/15 Thyroid,Pork [[place] Thyroid] 30 mg PO DAILY 05/23/15 Pnv No.95/Ferrous Fum/Folic AC [ Caplet] 1 each PO DAILY 06/29/18 Omeprazole [Prilosec] 10 mg PO BID 01/17/19 Ibuprofen [Motrin] 600 mg PO Q6H PRN PRN #30 tab 01/20/19 The following prescriptions were given: Ibuprofen [Motrin] 600 mg PO Q6H PRN PRN #30 tab PRN Reason: Mild Pain (-08/06) Transmission Status: Sent to [facility], [place] [place] - [id number] Please Follow Up With: Manuela Pearce CNM When: Call to make an appointment with your doctor in 2 and 6 weeks. Primary Care Physician: Jony Vásquez MD [Primary Care Provider] - Test Results: Test results from this visit will be discussed in further detail at your follow- up appointment, if applicable.
[2019-01-20] MEDS: Acetaminophen 500 MG Tablet 1000 MG PO (13:40)
== END 2019-01-20 13:50 | disposition home or self-care (01) | DRG 560 ==
PROVIDERS: Advanced Practice Midwife; Admitting Provider Obstetrics & Gynecology; Family Provider Family Medicine; PCP Family Medicine; Referring Provider Obstetrics & Gynecology; Visit Provider Obstetrics & Gynecology
DX: O76 Abnormality in fetal heart rate and rhythm complicating labor and delivery (principal); O77.0 Labor and delivery complicated by meconium in amniotic fluid; E66.9 Obesity, unspecified; O99.214 Obesity complicating childbirth; F17.200 Nicotine dependence, unspecified, uncomplicated; O99.334 Smoking (tobacco) complicating childbirth; F10.10 Alcohol abuse, uncomplicated; O99.314 Alcohol use complicating childbirth; F19.10 Other psychoactive substance abuse, uncomplicated; O99.323 Drug use complicating pregnancy, third trimester; O26.23 Pregnancy care for patient with recurrent pregnancy loss, third trimester; Z37.0 Single live birth; Z3A.39 39 weeks gestation of pregnancy; O66.0 Obstructed labor due to shoulder dystocia; O69.82X0 Labor and delivery complicated by other cord entanglement, without compression, not applicable or unspecified; O70.0 First degree perineal laceration during delivery
CPT/HCPCS: 59025; 59050; 80307; 85025; 86850; 86900; 86901; 99218; J7030; J7120; A4216; G0378

== ENCOUNTER 2020-06-06 14:26 | Inpatient (IN) | payer MEDICAID, SELFPAY ==
[2019-02-01 15:37] VITALS: BMI 45.4
[2020-06-06 14:27] VITALS: BP 121/93; PULSE 107; RESP 19; TEMP 36.8; O2SAT 98; BMI 52.7
--- NOTE | 2020-06-06 14:46 | ED.DCSUM_ITS ---
- ER Visit Summary Date of Service: 06/06/20 Chief Complaint: [Requesting detox from alcohol and bilateral ear pain] History of Present Illness: The patient is a 29 F [does the emergency department complaint of bilateral ear pain for the last 2 days with drainage from both ears. Patient states that she digs at both ears and she has had infections in them before. Patient also states that she is a heavy drinker and would like detox from alcohol. Her last drink was this morning and she normally drinks a pint of vodka daily. Patient has history of hypertension and hypothyroidism. She denies any fevers or recent illness. She denies any COVID-19 exposures.] Physical Examination: [HEENT-PERRLA, EOMI. Cranial nerves II through XII grossly intact. TMs not able to be visualized bilaterally as patient has edema of both ear canals with drainage from both ear canals. Patient has perichondritis noted of both earlobes.. Mucous membranes moist. No adenopathy. Cardiovascular-regular and tachycardic. No murmurs auscultated. Lungs-clear to auscultation, chest wall stable without crepitus or subcu emphysema Abdomen-normoactive bowel sounds, soft, nontender, no rebound or rigidity, no peritoneal signs. Extremities-intact ?4, normal range of motion, normal pulses, atraumatic] Test Results: [CBC with differential obtained showed white of 12.8, hemoglobin 13, hematocrit 41, placed 237. Chemistries and LFTs ordered and pending. Alcohol pending.] Emergency Department Course and Treatment: [The line established on arrival. Patient was given Unasyn 3 g IV and had earwax placed to both the ears and Corti sporin otic applied to both ears. Patient was discussed with hospitalist will evaluate patient for admission] Treatment Plan: [Admit] Disposition: [Admit] Impression: [Alcohol withdrawal and request for detox Bilateral otitis externa with perichondritis] This note was generated with [employer] dictation software. It may contain incorrect words, spelling, and punctuation that were not noted in review of the chart prior to signing ED Disposition - Plan for ED Patient: Referrals: Jony Vásquez MD [Primary Care Provider] -
[2020-06-06] MEDS: 0.9% Normal Saline 1,000 ML 1000 ML IV (15:16)
[2020-06-06] MEDS: Neomycin Sulfate/Polymyxin/Hc Susp 10 ML Bottle 4 DRP OTIC ×2 (15:29→21:07)
[2020-06-06 15:39] LABS: Absolute Lymphocyte Count 1.64 X10^3/uL (0.83-4.51); Absolute Neutrophil Count 9.7 X10^3/uL (2.0-7.7); Basophil# 0.04 X10^3/uL; Basophil% 0.3 % (0-1); Eosinophil# 0.07 X10^3/uL; Eosinophils% 0.5 % (0-5); Hematocrit 40.7 % (37-47); Hemoglobin 13.3 g/dL (12.0-15.0); Lymphocyte # 1.64 X10^3/ul (4.0); Lymphocyte % 12.8 % (19-41); Mean Corp Hgb Conc 32.7 g/dL (32-36); Mean Corpuscular Hgb 30.9 pg (27.0-32.0); Mean Corpuscular Volume 94.4 fL (81-99); Monocyte% 9.4 % (0-10); NRBC Flagged by Analyzer 0 % (0-5); Neutrophil # 9.74 X10^3/uL (2.7-7.7); Neutrophil % 76.4 % (47-70); Platelet Count 237 K/mm3 (150-450); RBC Distribution Width CV 13.3 % (11.6-14.6); RBC Distribution Width SD 46.5 fl (35.1-43.9); Red Blood Count 4.31 M/mm3 (4.2-5.4); White Blood Count 12.8 K/mm3 (4.4-11.0)
[2020-06-06 15:59] LABS: ALB/GLOB Ratio 0.9 RATIO (0.9-2.4); AST(SGOT) 13 U/L (15-37); Alanine Aminotransfer ALT/SGPT 29 U/L (13-56); Albumin, Serum 3.5 g/dL (3.2-5.0); Alkaline Phosphatase 70 U/L (45-117); Anion Gap 4 (5-15); BUN 11 mg/dL (7-18); BUN/Creat Ratio 13.9 RATIO (10-20); Calcium,Total 8.8 mg/dL (8.5-10.1); Chloride 107 mmol/L (98-107); Creatinine, Serum 0.79 mg/dL (0.55-1.02); EST Glomerular Filtration Rate 90 mL/min (>60); Est Glom Filt Rate - Afr Amer 108 mL/min (>60); Estimated Creatinine Clearance 100.34 ml/min; Globulin 3.8 g/dL (2.2-4.2); Glucose 84 mg/dL (74-106); Potassium 4.1 mmol/L (3.5-5.1); Protein, Total 7.3 g/dL (6.4-8.2); Sodium Level 139 mmol/L (136-145)
[2020-06-06 16:04] LABS: Internal QC Validated? YES +Cl - CLEAR BKGD; Pregnancy, Serum, hCG Quali. NEGATIVE Negative
[2020-06-06] MEDS: chlordiazePOXIDE 25 MG Capsule PO (16:04)
--- NOTE | 2020-06-06 16:05 | CM.ED ---
SOCIAL WORK Informant: Dr. Bhandari Reason for Consult: Substance Abuse- patient requesting detox from alcohol Met with patient in room. Introduced role and reason for referral. Patient reports has had issues with alcohol abuse since the age of 16. Patient wanting admitted to detox. Education provided on [facility]. Patient verbalized understanding. Call to [facility] Treatment Navigator, Good to update on admission. drying can worker to be in tomorrow to complete assessment. Plan: Admit to [facility] Ric. Carolyn, WIND PROJECT MANAGER, RAZOR GRINDER
[2020-06-06 16:08] LABS: Alcohol, Blood (Medical)-Serum < 3.0 mg/dL
--- NOTE | 2020-06-06 16:13 | PCS.PANDOC ---
PANDEMIC DOCUMENTATION INITIATED: Date:06/06/2020 Time: 6584
[2020-06-06 16:20] VITALS: BP 130/88; PULSE 105; RESP 17; TEMP 36.7; O2SAT 97
--- NOTE | 2020-06-06 16:45 | HP.PCM_ITS ---
Problem List (1) Alcohol withdrawal Status: Acute Qualifiers: Complication of substance-induced condition: uncomplicated Qualified Code(s): F10.230 - Alcohol dependence with withdrawal, uncomplicated (2) Otitis externa Status: Acute Qualifiers: Otitis externa type: unspecified type Chronicity: acute Laterality: bilateral Qualified Code(s): H60.503 - Unspecified acute noninfective otitis externa, bilateral (3) Substance abuse affecting in second trimester, antepartum Status: Inactive (4) Alcohol abuse affecting in second trimester Status: Inactive (5) Maternal obesity affecting , antepartum Status: Inactive (6) Recurrent loss Status: Chronic (7) Poor growth affecting management of mother Status: Inactive (8) Vaginal delivery Status: Inactive (9) Shoulder dystocia, delivered Status: Inactive (10) hemorrhage of vagina Status: Inactive History of Present Illness Date of Admission: 06/06/20 Chief Complaint: alcohol wd The patient is a 29 year old F presents seeking treatment for acute alcohol withdrawal. Patient drinks a bottle of vodka per day and last drink was this morning. Since then she has been having tremulousness. Presented to the emergency room due to drainage from both her ears. Patient was diagnosed with otitis externa, had matheus placed and received Unasyn. Patient states that she digs at her ears bilaterally. [] Past Medical History Past Medical History (Chronic Problems): Chronic Problems Recurrent loss (Chronic) Medical History: Medical History (Last Updated 06/06/20 @ 16:[address] Derik Schrader, DO) Depression F32.9 Allergies divalproex sodium [From Depakote] Allergy (Verified 06/06/20 14:26) Rash meloxicam Allergy (Verified 06/06/20 14:26) Rash swelling Home Medications: Ambulatory Orders Medication Instructions Recorded Aripiprazole [Abilify] 30 mg PO DAILY 06/06/20 Buspirone HCl 15 mg PO TID 06/06/20 Citalopram [Celexa] 40 mg PO DAILY 06/06/20 Famotidine 20 mg PO BID 06/06/20 Ferrous Sulfate 325 mg PO BID 06/06/20 Hydroxyzine Pamoate 50 mg PO Q8H PRN PRN 06/06/20 Lamotrigine [Lamictal] 150 mg PO BID 06/06/20 Thyroid [[place] Thyroid] 60 mg PO DAILY 06/06/20 traZODone [Desyrel] 100 mg PO QHS 06/06/20 Surgical History: no surgical history Psychiatric History: Anxiety, Bipolar, Depression 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 Ear pain. Cardiovascular: Denies: Chest Pain, Palpitations Respiratory: Denies: Cough, Shortness of breath at rest, Sputum production Gastrointestinal: Denies: Abdominal Pain, Nausea, Vomiting Genitourinary: Denies: Dysuria Musculoskeletal: Denies: Joint Pain, Joint Tenderness Skin: Denies: Rash, Wounds Psychiatric: Reports: Anxiety, Depression Comment: All review of systems were negative except as mentioned above in the history of present illness and the other review of systems. VTE Information - Inpt Only VTE Present on Admission: No VTE Mechan Device Prophylaxis: None VTE Pharm Prophylaxis ordered?: Yes - Physical Exam Vitals/I&O's: Vital Signs Temp Pulse Resp BP Pulse Ox 36.7 C 105 H 17 130/88 H 97 06/06/20 16:20 06/06/20 16:20 06/06/20 16:20 06/06/20 16:20 06/06/20 16:20 Oxygen Delivery Method Room Air Weight: 152.9 kg Body Mass Index (BMI) 52.7 Intake and Output for Last 24 Hours 06/04/20 06/05/20 06/06/20 23:59 23:59 23:59 Intake Total 1112 / 1112 Balance 1112 / 1112 General: Alert, Cooperative, No apparent distress HEENT: Atraumatic, Normocephalic, - - Bilateral otitis externa. Could not see beyond the ear canals given the inflammation. Inflammation extending to the exterior ear tissue. Oral: Moist Mucosa, No Gingival or Mucosal Lesions/ Ulcerations Neck: No Nodes, Thyroid Normal Size and Texture Lungs: Clear to auscultation, Normal air movement, No rhonchi, No wheeze, No rales Cardiovascular: Regular rate, Regular Rhythm, Normal S1, Normal S2, - - Distant heart sounds Abdomen: Bowel Sounds Present, Soft, Non Tender, Non-Distended, No Hepato- splenomegaly Extremities: No edema, No Calf Tenderness Skin: No rashes, No breakdown Psych/Mental Status: Appropriate, Anxious Laboratory Results 06/06/20 15:15: WBC 12.8 H, RBC 4.31, Hgb 13.3, Hct 40.7, MCV 94.4, MCH 30.9, MCHC 32.7, RDW Std Deviation 46.5 H, RDW Coeff of Stacey 13.3, Plt Count 237, MPV 10.0, Immature Gran % (Auto) 0.600, Neut % (Auto) 76.4 H, Lymph % (Auto) 12.8 L, [place] % (Auto) 9.4, Eos % (Auto) 0.5, Baso % (Auto) 0.3, Absolute Neuts (auto) 9.7 H, Absolute Lymphs (auto) 1.64, Nucleated RBC % 0 06/06/20 15:15: Sodium 139, Potassium 4.1, Chloride 107, Carbon Dioxide 28.0, Anion Gap 4 L, BUN 11, Creatinine 0.79, Estim Creat Clear Calc 100.34, Est GFR (MDRD) Af Amer 108, Est GFR (MDRD) Non-Af 90, BUN/Creatinine Ratio 13.9, Glucose 84, Calcium 8.8, Total Bilirubin 0.70, AST 13 L, ALT 29, Alkaline Phosphatase 70, Total Protein 7.3, Albumin 3.5, Globulin 3.8, Albumin/Globulin Ratio 0.9 06/06/20 15:15: Ethyl Alcohol < 3.0 06/06/20 15:15: Serum , Qual NEGATIVE Current Medications Sodium Chloride () 1,000 mls @ 15 mls/hr IV .Q48H VENITA Neomycin/Polymyxin/Hydrocortisone (Neomycin Sulfate/Polymyxin/Hc Susp 10 Ml Bottle) 4 drop OTIC 4X/DAY VENITA Last Admin: 06/06/20 15:29 Dose: 4 drop Documented by: Sodium Chloride (0.9% Saline Lock 10 Ml Syringe) 10 - 40 ml IV UD PRN PRN Reason: SALINE FLUSH Assessment/Plan All Active Problems Alcohol withdrawal (Acute) Otitis externa (Acute) 1. Acute alcohol withdrawal: Patient will be initiated on a phenobarbital taper. Patient also have additional agents to help with other somatic complaints as needed. Patient has a program set up as outpatient that she will follow up with when she is discharged. 2. Acute otitis externa: Bilateral. Patient is not a swimmer nor a diabetic, however does manipulate her ears. Given that this is bilateral I would be concerned about self inoculation and even MRSA. Will initiate the patient on Pipracil/tazobactam and vancomycin at this point in time. I do not feel the patient has malignant otitis externa but will check a CAT scan to further evaluate and see if we need to have otolaryngology involved. Patient will also be on neomycin eardrops. Matheus were placed in the emergency room. Change as needed. 3. Depression, anxiety: Continue with her psychiatric medications. 4. VTE prophylaxis: Patient is moderate risk given her obesity and active acute otitis externa. Patient will be on enoxaparin while in the hospital. Inpatient E&M: 59157 Init Hosp L2
--- NOTE | 2020-06-06 16:52 | CT_ITS ---
STUDY: CT TEMPORAL BONES WITHOUT CONTRAST - ATTN: I.A.C. S REASON FOR EXAM: Female, 29 years old. Bilateral otitis externa, ETOH withdrawal, patient picks at ears. RADIATION DOSAGE (If Supplied By Facility): CTDIvol = ( 67.88 ) mGy, DLP = ( 599.35 ) mGycm TECHNIQUE: The patient was scanned in a multi detector CT scanner. Transaxial imaging was performed without the administration of intravenous contrast material. Sagittal and coronal images were reconstructed. Individualized dose optimization techniques were used for this CT. COMPARISON: None. FINDINGS: RIGHT TEMPORAL BONE Normal right internal auditory canal. Soft tissue fills the external auditory canal most consistent with severe otitis externa. Soft tissue density fills the middle ears and cavity with retraction of the tympanic membrane. Soft tissue material surrounds the ossicles consistent with chronic otitis media. Erosions are seen of the attic extending into the mastoid air cells which are also completely opacified. Findings are most consistent with extensive inflammatory process of the external auditory canal, middle ear, and probable cholesteatoma eroding into the mastoid air cells which show mastoiditis. Normal right petrous carotid artery. Normal right jugular fossa. There are extensive inflammatory changes of the right mastoid air cells consistent with severe chronic otomastoiditis. Normal right petrous apex. LEFT TEMPORAL BONE Normal left internal auditory canal. Findings there is similar but slightly less severe than on the right. Soft tissue density throughout the external auditory canal consistent with otitis externa. Soft tissue density almost completely filling the middle ear and surrounding the ossicles with retraction of the tympanic membrane. Probable direct erosion from the middle ear cavity into the mastoid air cells which are mostly filled with fluid density. Again findings are most consistent with extensive inflammatory process involving the external auditory canal, middle ear cavity, and extending into the mastoid air cells. Normal left petrous carotid artery. Normal right jugular fossa. There are moderate inflammatory changes of the left mastoid air cells consistent with moderate chronic otomastoiditis. Normal left petrous apex. CT/Orb Sella Post Fossa Ear w/o IMPRESSION: Markedly abnormal bilateral temporal bones. Findings most consistent with severe and extensive external otitis, otitis media, and mastoiditis. Findings are worse on the right. Electronically Signed: Ronnie Mayers MD at 23:49 EST , Service support ,
[2020-06-06 18:05] VITALS: BMI 52.6
[2020-06-06 18:08] VITALS: BMI 52.7
[2020-06-06] MEDS: Ketorolac 15 MG/ML Vial IV (18:25)
[2020-06-06] MEDS: Phenobarbital 32.4 MG Tablet 64.8 MG PO ×2 (18:27→21:07)
[2020-06-06] MEDS: Acetaminophen 500 MG Tablet 1000 MG PO (18:30)
[2020-06-06 18:40] VITALS: BP 144/96; PULSE 100; RESP 16; TEMP 36.9; O2SAT 97
--- NOTE | 2020-06-06 19:21 | PCM.RX.CS ---
Consult Pharmacy has been consulted to manage selected antiobiotic: Vancomycin Type of Consult: New start Suspected Infection: Other - ACUTE OTITIS EXTERNA Labs: Sodium 139 mmol/L (136-145) 06/06/20 15:15 Potassium 4.1 mmol/L (3.5-5.1) 06/06/20 15:15 Chloride 107 mmol/L (98-107) 06/06/20 15:15 Carbon Dioxide 28.0 mmol/L (21.0-32.0) 06/06/20 15:15 Anion Gap 4 (5-15) L 06/06/20 15:15 BUN 11 mg/dL (7-18) 06/06/20 15:15 Creatinine 0.79 mg/dL (0.55-1.02) 06/06/20 15:15 Est GFR (MDRD) Af Amer 108 mL/min (>60) 06/06/20 15:15 Est GFR (MDRD) Non-Af 90 mL/min (>60) 06/06/20 15:15 BUN/Creatinine Ratio 13.9 RATIO (10-20) 06/06/20 15:15 Glucose 84 mg/dL (74-106) 06/06/20 15:15 Microbiology: Microbiology 06/06/20 16:08 Mucosa - Nose SARS-CoV-2 Antigen (Rapid) - Final Goal Trough: 15-20 mcg/mL Pharmacy Plan for Drug Dosing: NEW START IV VANCOMYCIN Consulting Physician: TIMA Indication: ACUTE OTITIS EXTERNA Goal Trough: 15-20 mg/dl SrCr: 0.79 CrCl: 160 ML/MIN USING ADJUSTED BODY WEIGHT OF 98.1 KG Comments: LOADING DOSE ORDERED. 2000MG GIVEN 06/06 @ 1827 Vancomycin Dose: 1500MG Q8H STARTING 06/07 @ 0230. TROUGH PRIOR TO 4TH DOSE Pharmacy Service will continue to monitor and adjust dosing as required. Labs to be done on [date and time ordered]: 06/07/20 @ 1800
[2020-06-06 20:58] VITALS: BP 119/68; PULSE 93; RESP 18; TEMP 36.8; O2SAT 97
[2020-06-06] MEDS: lamoTRIgine 150 MG Tablet PO (21:07)
[2020-06-06] MEDS: traZODone 100 MG Tablet PO (21:07)
[2020-06-06] MEDS: busPIRone 15 MG TABLET PO (21:07)
[2020-06-06] MEDS: Famotidine 20 MG Tablet PO (21:07)
[2020-06-07 01:23] VITALS: BP 124/71; PULSE 95; RESP 18; TEMP 36.7; O2SAT 98
[2020-06-07] MEDS: Phenobarbital 32.4 MG Tablet 64.8 MG PO ×6 (01:26→21:21)
[2020-06-07] MEDS: Ibuprofen 600 MG Tablet PO ×3 (01:27→15:46)
[2020-06-07] MEDS: Acetaminophen 500 MG Tablet PO ×4 (04:35→17:33)
[2020-06-07 04:36] VITALS: BP 124/72; PULSE 83; RESP 18; TEMP 36.7; O2SAT 95
[2020-06-07] MEDS: Thyroid 60 MG Tablet PO (05:24)
[2020-06-07] MEDS: busPIRone 15 MG TABLET PO ×3 (05:25→21:24)
[2020-06-07 06:46] LABS: Absolute Lymphocyte Count 1.94 X10^3/uL (0.83-4.51); Absolute Neutrophil Count 7.3 X10^3/uL (2.0-7.7); Basophil# 0.02 X10^3/uL; Basophil% 0.2 % (0-1); Eosinophil# 0.09 X10^3/uL; Eosinophils% 0.9 % (0-5); Hematocrit 35.3 % (37-47); Hemoglobin 11.5 g/dL (12.0-15.0); Lymphocyte # 1.94 X10^3/ul (4.0); Lymphocyte % 19.2 % (19-41); Mean Corp Hgb Conc 32.6 g/dL (32-36); Mean Corpuscular Hgb 30.7 pg (27.0-32.0); Mean Corpuscular Volume 94.4 fL (81-99); Mean Platelet Vol. 10.5 fl (6.2-12.0); Monocyte# 0.81 X10^3/uL; NRBC Flagged by Analyzer 0 % (0-5); Neutrophil # 7.25 X10^3/uL (2.7-7.7); Neutrophil % 71.5 % (47-70); Platelet Count 230 K/mm3 (150-450); RBC Distribution Width CV 13.5 % (11.6-14.6); RBC Distribution Width SD 46.6 fl (35.1-43.9); Red Blood Count 3.74 M/mm3 (4.2-5.4); White Blood Count 10.1 K/mm3 (4.4-11.0)
[2020-06-07 07:10] LABS: Anion Gap 6 (5-15); BUN 10 mg/dL (7-18); BUN/Creat Ratio 16.3 RATIO (10-20); Chloride 106 mmol/L (98-107); Creatinine, Serum 0.61 mg/dL (0.55-1.02); EST Glomerular Filtration Rate 120 mL/min (>60); Est Glom Filt Rate - Afr Amer 146 mL/min (>60); Estimated Creatinine Clearance 129.95 ml/min; Glucose 93 mg/dL (74-106); Potassium 3.7 mmol/L (3.5-5.1); Sodium Level 137 mmol/L (136-145)
[2020-06-07 08:32] VITALS: BP 117/74; PULSE 86; RESP 16; TEMP 36.8; O2SAT 97
[2020-06-07] MEDS: Enoxaparin 40 MG/0.4 ML Syringe SC (08:42)
[2020-06-07] MEDS: Thiamine Hydrochloride 100 MG Tablet PO (08:43)
[2020-06-07] MEDS: ARIPiprazole 10 MG Tablet 30 MG PO (08:43)
[2020-06-07] MEDS: Neomycin Sulfate/Polymyxin/Hc Susp 10 ML Bottle 4 DRP OTIC ×4 (08:43→21:25)
[2020-06-07] MEDS: Famotidine 20 MG Tablet PO ×2 (08:43→21:24)
[2020-06-07] MEDS: lamoTRIgine 150 MG Tablet PO ×2 (08:44→21:24)
[2020-06-07] MEDS: Folic Acid 1 MG Tablet PO (08:44)
[2020-06-07] MEDS: Ferrous Sulfate 325 MG Tablet PO ×2 (08:44→17:33)
[2020-06-07] MEDS: Citalopram 40 MG TABLET PO (08:44)
--- NOTE | 2020-06-07 09:01 | PN_ITS ---
Patient Problems: Active and Suspected Problems (Last Updated 06/06/20 @ 16:[address] Derik Schrader, DO) Alcohol withdrawal (Acute) Otitis externa (Acute) Subjective: Chief complaint: Follow-up after admission for acute alcohol withdrawal and acute bilateral otitis media with possible mastoiditis. Patient seen and examined. No acute events overnight. Today, she still complaining of bilateral ear pain with decreased hearing on both ears, more to the left ear. Denies fever or chills. Her vital signs are stable. - Physical Exam Vitals/I&O's: Vital Signs Temp Pulse Resp BP Pulse Ox 98.2 F 86 16 117/74 97 06/07/20 08:32 06/07/20 08:32 06/07/20 08:32 06/07/20 08:32 06/07/20 08:32 Oxygen Delivery Method Room Air Weight: 336 lb 3.2 oz Body Mass Index (BMI) 52.6 Intake and Output for Last 24 Hours 06/05/20 06/06/20 06/07/20 23:59 23:59 23:59 Intake Total 1651 1130 / 1130 Balance 1651 1130 / 1130 General: Alert, Oriented x3, Cooperative, No apparent distress HEENT: Atraumatic, PERRLA, EOMI, Normocephalic, - - Clear drainage from both ears, periauricular erythema. Oral: Moist Mucosa, No Gingival or Mucosal Lesions/ Ulcerations Neck: Supple, No JVD, Negative Carotid Bruits, Trachea Midline, Thyroid Normal Size and Texture Lungs: Clear to auscultation, Normal air movement, No rhonchi, No wheeze, No rales Cardiovascular: Regular rate, Regular Rhythm, Normal S1, Normal S2, No murmurs, PMI Normal Abdomen: Bowel Sounds Present, Soft, Non Tender, Non-Distended, No Hepato- splenomegaly, Obese Skin: No rashes, No breakdown Lymphatic: No Cervical, Supraclavicular, or Inguinal Adenopathy Neurological: Cranial nerves II-XII grossly intact, Motor Exam 5/5 strength throughout Psych/Mental Status: Normal Affect, Appropriate, Alert and oriented to time, place, person, mood and affect Microbiology Past 72 Hours 06/06/20 16:08 Mucosa - Nose SARS-CoV-2 Antigen (Rapid) - Final Laboratory Results 06/06/20 15:15: WBC 12.8 H, RBC 4.31, Hgb 13.3, Hct 40.7, MCV 94.4, MCH 30.9, MCHC 32.7, RDW Std Deviation 46.5 H, RDW Coeff of Stacey 13.3, Plt Count 237, MPV 10.0, Immature Gran % (Auto) 0.600, Neut % (Auto) 76.4 H, Lymph % (Auto) 12.8 L, Mcpherson % (Auto) 9.4, Eos % (Auto) 0.5, Baso % (Auto) 0.3, Absolute Neuts (auto) 9.7 H, Absolute Lymphs (auto) 1.64, Nucleated RBC % 0 06/06/20 15:15: Sodium 139, Potassium 4.1, Chloride 107, Carbon Dioxide 28.0, Anion Gap 4 L, BUN 11, Creatinine 0.79, Estim Creat Clear Calc 100.34, Est GFR (MDRD) Af Amer 108, Est GFR (MDRD) Non-Af 90, BUN/Creatinine Ratio 13.9, Glucose 84, Calcium 8.8, Total Bilirubin 0.70, AST 13 L, ALT 29, Alkaline Phosphatase 70, Total Protein 7.3, Albumin 3.5, Globulin 3.8, Albumin/Globulin Ratio 0.9 06/06/20 15:15: Ethyl Alcohol < 3.0 06/06/20 15:15: Serum , Qual NEGATIVE 06/07/20 05:40: WBC 10.1, RBC 3.74 L, Hgb 11.5 L, Hct 35.3 L, MCV 94.4, MCH 30.7, MCHC 32.6, RDW Std Deviation 46.6 H, RDW Coeff of Stacey 13.5, Plt Count 230, MPV 10.5, Immature Gran % (Auto) 0.200, Neut % (Auto) 71.5 H, Lymph % (Auto) 19.2, Mcpherson % (Auto) 8.0, Eos % (Auto) 0.9, Baso % (Auto) 0.2, Absolute Neuts (auto) 7.3, Absolute Lymphs (auto) 1.94, Nucleated RBC % 0 06/07/20 05:40: Sodium 137, Potassium 3.7, Chloride 106, Carbon Dioxide 25.0, Anion Gap 6, BUN 10, Creatinine 0.61, Estim Creat Clear Calc 129.95, Est GFR (MDRD) Af Amer 146, Est GFR (MDRD) Non-Af 120, BUN/Creatinine Ratio 16.3, Glucose 93, Calcium 8.0 L Clinical Impression(s) from Imaging Studies CT Orbit Sella Inner 06/06/20 16:52 IMPRESSION: Markedly abnormal bilateral temporal bones. Findings most consistent with severe and extensive external otitis, otitis media, and mastoiditis. Findings are worse on the right. Electronically Signed: Ronnie Mayers MD at 23:49 EST , Service support , Current Medications Acetaminophen (Acetaminophen 500 Mg Tablet) 500 mg PO Q4H PRN PRN PRN Reason: Temp > 100.4 F Last Admin: 06/07/20 08:41 Dose: 500 mg Documented by: Aripiprazole (Aripiprazole 10 Mg Tablet) 30 mg PO DAILY [facility] Last Admin: 06/07/20 08:43 Dose: 30 mg Documented by: Bisacodyl (Bisacodyl 10 Mg Suppository) 10 mg RECTAL DAILY PRN PRN Reason: Constipation Buspirone HCl (Buspirone 15 Mg Tablet) 15 mg PO TID [facility] Last Admin: 06/07/20 05:25 Dose: 15 mg Documented by: Citalopram Hydrobromide (Citalopram 40 Mg Tablet) 40 mg PO DAILY [facility] Last Admin: 06/07/20 08:44 Dose: 40 mg Documented by: Dicyclomine HCl (Dicyclomine 10 Mg Capsule) 20 mg PO Q6H PRN PRN PRN Reason: abdominal discomfort Enoxaparin Sodium (Enoxaparin 40 Mg/0.4 Ml Syringe) 40 mg SC DAILY [facility] Last Admin: 06/07/20 08:42 Dose: 40 mg Documented by: Famotidine (Famotidine 20 Mg Tablet) 20 mg PO BID [facility] Last Admin: 06/07/20 08:43 Dose: 20 mg Documented by: Ferrous Sulfate (Ferrous Sulfate 325 Mg Tablet) 325 mg PO BIDCM [facility] Last Admin: 06/07/20 08:44 Dose: 325 mg Documented by: Folic Acid (Folic Acid 1 Mg Tablet) 1 mg PO DAILY@0800 [facility] Last Admin: 06/07/20 08:44 Dose: 1 mg Documented by: Gabapentin (Gabapentin 300 Mg Capsule) 300 mg PO Q8H PRN PRN PRN Reason: moderate to severe anxiety Hydroxyzine Pamoate (Hydroxyzine Nara 25 Mg Capsule) 50 mg PO Q4H PRN PRN PRN Reason: mild anxiety Piperacillin Sod/Tazobactam (Sod 3.375 gm/ Sodium Chloride) 50 mls @ 12.5 mls/hr IV Q8 [facility] Last Admin: 06/07/20 05:17 Dose: 12.5 mls/hr Documented by: Vancomycin IV Pharmacy to Dose (1 ea/ Sodium Chloride) 500 mls @ 250 mls/hr IV X1 PRN; Protocol PRN Reason: Rx to Dose Vancomycin HCl 1,500 mg/ (Sodium Chloride) 530 mls @ 250 mls/hr IV Q8H [facility] Last Infusion: 06/07/20 04:48 Dose: Infused Documented by: Ibuprofen (Ibuprofen 600 Mg Tablet) 600 mg PO Q8H PRN PRN PRN Reason: Pain Score 1-10 Last Admin: 06/07/20 01:27 Dose: 600 mg Documented by: Lamotrigine (Lamotrigine 150 Mg Tablet) 150 mg PO BID [facility] Last Admin: 06/07/20 08:44 Dose: 150 mg Documented by: Loperamide HCl (Loperamide 2 Mg Capsule) 2 mg PO Q4H PRN PRN PRN Reason: LOOSE STOOLS Neomycin/Polymyxin/Hydrocortisone (Neomycin Sulfate/Polymyxin/Hc Susp 10 Ml Bottle) 4 drop OTIC 4X/DAY [facility] Last Admin: 06/07/20 08:43 Dose: 4 drop Documented by: Nicotine (Nicotine 21 Mg Patch) 21 mg TD DAILY [facility] Last Admin: 06/07/20 08:43 Dose: 21 mg Documented by: Phenobarbital (Phenobarbital 32.4 Mg Tablet) 97.2 mg PO Q4H [facility]; Taper Stop: 06/11/20 01:14 Last Admin: 06/07/20 08:41 Dose: 97.2 mg Documented by: Sodium Chloride (0.9% Saline Lock 10 Ml Syringe) 10 - 40 ml IV UD PRN PRN Reason: SALINE FLUSH Thiamine HCl (Thiamine Hydrochloride 100 Mg Tablet) 100 mg PO DAILYCM [facility] Last Admin: 06/07/20 08:43 Dose: 100 mg Documented by: Thyroid (Thyroid 60 Mg Tablet) 60 mg PO DAILY@0600 [facility] Last Admin: 06/07/20 05:24 Dose: 60 mg Documented by: Trazodone HCl (Trazodone 100 Mg Tablet) 100 mg PO QHS [facility] Last Admin: 06/06/20 21:07 Dose: 100 mg Documented by: Medical Necessity - Tobacco Use Smoking Status: Current every day smoker Tobacco Use: Cigarettes Assessment/Plan All Active Problems (Last Updated 06/06/20 @ 16:[address] Derik Schrader, DO) Alcohol withdrawal (Acute) Otitis externa (Acute) This is a 29 years old female patient presented to the emergency room requesting admission for acute alcohol withdrawal, complaint of bilateral ear pain and she was found to have severe otitis externa and otitis media as well as mastoiditis. #1 acute alcohol withdrawal: She is on phenobarbital taper, thiamine, folic acid, as needed Neurontin, Vistaril, Motrin, Imodium, trazodone. Her blood alcohol level was less than 3. CBC and BMP was unremarkable. LFT was normal. Serum was negative. Her vital signs are stable. Plan to continue same treatment. #2 acute severe otitis externa/otitis media/mastoiditis: CT of the inner ear reviewed. Currently, she is on IV vancomycin and Zosyn. She is afebrile, leukocytosis resolved. COVID-19 antigen was negative. Plan: MRSA nasal screen, MRSA DNA screen of the ear drainage, ear drainage culture, change antibiotic to IV Unasyn, discontinue vancomycin and Zosyn, ENT consult. #3 anxiety and depression: Continue Abilify, Celexa, BuSpar, Lamictal and trazodone. #4 hypothyroidism: Stable, continue [place] Thyroid. #5 DVT prophylaxis: Low risk patient, no prophylaxis indicated. This note was generated with [employer] dictation software. It may contain incorrect words, spelling, and punctuation that were not noted in checking the note before signing. Inpatient E&M: 42438 Subs Hosp L2
--- NOTE | 2020-06-07 10:53 | PCM.PN.BLA ---
Progress Note To see the patient at the request of Dr. Diaz for mastoiditis History of present illness: The patient is a 29-year-old white female who was admitted for alcohol withdrawal. She has had no constitutional symptoms of systemic illness other than her alcoholism. Meaning, she was not admitted for her ear problem. For the past 3 days in the right ear she has had clear drainage and progressive swelling and pain. For the past 2 days she has had clear drainage swelling and pain from the left ear. She is not prone to ear infections. Prior to 3 days ago she was hearing well on each side. She has never had ear tubes or any other ear infections to speak of. She had bilateral rafael placed in the emergency room. A CT of the temporal bones were performed. Past Medical History Past Medical History (Chronic Problems): Chronic Problems Alcoholism Medical History: Medical History (Last Updated 06/06/20 @ 16:[address] Derik Schrader, DO) Depression F32.9 Allergies divalproex sodium [From Depakote] Allergy (Verified 06/06/20 14:26) Rash meloxicam Allergy (Verified 06/06/20 14:26) Rash swelling Home Medications: Ambulatory Orders Medication Instructions Recorded Aripiprazole [Abilify] 30 mg PO DAILY 06/06/20 Buspirone HCl 15 mg PO TID 06/06/20 Citalopram [Celexa] 40 mg PO DAILY 06/06/20 Famotidine 20 mg PO BID 06/06/20 Ferrous Sulfate 325 mg PO BID 06/06/20 Hydroxyzine Pamoate 50 mg PO Q8H PRN PRN 06/06/20 Lamotrigine [Lamictal] 150 mg PO BID 06/06/20 Thyroid [Francisco Thyroid] 60 mg PO DAILY 06/06/20 traZODone [Desyrel] 100 mg PO QHS 06/06/20 Surgical History: no surgical history Psychiatric History: Anxiety, Bipolar, Depression [employer] History: spontaneous Smoking Status: Current every day smoker - *Family History Maternal History Items: - - no heart dz Review of Systems Constitutional: Denies: Anorexia, Chills, Fever, Night Sweats Eyes: Denies: Blurred vision, Double vision HEENT: Reports: Difficulty Hearing, - - Drainage from ears. Ear pain. Cardiovascular: Denies: Chest Pain, Palpitations Respiratory: Denies: Cough, Shortness of breath at rest, Sputum production Gastrointestinal: Denies: Abdominal Pain, Nausea, Vomiting Genitourinary: Denies: Dysuria Musculoskeletal: Denies: Joint Pain, Joint Tenderness Skin: Denies: Rash, Wounds Psychiatric: Reports: Anxiety, Depression Comment: All review of systems were negative except as mentioned above in the history of present illness and the other review of systems. - Physical Exam Patient is awake alert no acute distress. When I entered the room she was sleeping peacefully. The right ear reveals mild cellulitis of the conchal bowl. The wick is in place. There is obvious swelling of the external auditory canal meatus. There is no distortion of the postauricular crease or fluctuance or collection in the postauricular area. The left ear reveals mild cellulitis of the conchal bowl (even less than the right). The wick is in place with swelling of the external auditory canal meatus.The post auricular crease is quiet. Facial nerve is intact bilaterally. Nasal exam reveals no purulence Mouth and oropharynx reveal no erythema masses or lesions Neck is supple no adenopathy or collections. CT of the temporal bones reveals bilateral otitis externa with obvious rafael in the external auditory canal. There is diffuse and scattered steroid cell inflammation bilaterally. There is no coalescent mastoiditis given coalescent fluid in the mastoid cavity bilaterally. Assessment: bilateral acute otitis externa, no evidence of clinical mastoiditis Plan: I would continue the neomycin drops as prescribed 4 times per day. The rafael have to stay in place. I would change her antibiotics to cover Pseudomonas. Typically, Cipro is used and would be continued orally as an outpatient. She will need to be seen at the end of next week for wick removal if they do not fall out on their own before hand. STROKE Vital Signs/Narrative: Vital Signs Temp Pulse Resp BP Pulse Ox 06/07/20 08:32 98.2 F 86 16 117/74 97
[2020-06-07 13:51] VITALS: BP 123/66; PULSE 82; RESP 16; TEMP 36.7; O2SAT 95
--- NOTE | 2020-06-07 14:00 | NURSING ---
Called pharmacy to see if a dose of Cipro needed to be given early for pseudomonas coverage. Bianca states that since she has had a couple doses of Zosyn that we shouldn't need to give early unless the physician specifically states to give early. none have stated this. will give at 2200 as scheduled.
[2020-06-07] MEDS: traZODone 100 MG Tablet PO (21:23)
[2020-06-07] MEDS: Ciprofloxacin 400 MG/200 ML BAG 200 MG IV (21:32)
[2020-06-07 22:00] VITALS: BP 121/76; PULSE 82; RESP 18; TEMP 36.8; O2SAT 98
[2020-06-08] MEDS: Phenobarbital 32.4 MG Tablet 64.8 MG PO ×6 (01:57→21:55)
[2020-06-08] MEDS: Ibuprofen 600 MG Tablet PO ×3 (01:58→18:49)
[2020-06-08 05:20] VITALS: BP 120/77; PULSE 74; RESP 18; TEMP 36.8; O2SAT 98
[2020-06-08] MEDS: Thyroid 60 MG Tablet PO (05:34)
[2020-06-08] MEDS: busPIRone 15 MG TABLET PO ×3 (05:34→21:57)
[2020-06-08] MEDS: Ferrous Sulfate 325 MG Tablet PO ×2 (07:55→17:38)
[2020-06-08] MEDS: Folic Acid 1 MG Tablet PO (07:55)
[2020-06-08] MEDS: Thiamine Hydrochloride 100 MG Tablet PO (07:55)
[2020-06-08] MEDS: Acetaminophen 500 MG Tablet PO ×3 (07:55→17:38)
--- NOTE | 2020-06-08 08:55 | PCM.PROGNOTE ---
Patient Problems: Active and Suspected Problems (Last Updated 06/06/20 @ 16:[address] Derik Schrader, DO) Alcohol withdrawal (Acute) Otitis externa (Acute) Subjective: Chief complaint: Follow-up after admission for acute alcohol withdrawal and acute bilateral otitis media, mastoiditis ruled out. Patient seen and examined. No acute events overnight. Bilateral ear pain started to improve. She has been having no fever. No significant withdrawal symptoms. Her vital signs are stable. - Physical Exam Vitals/I&O's: Vital Signs Temp Pulse Resp BP Pulse Ox 98.2 F 74 18 120/77 98 06/08/20 05:20 06/08/20 05:20 06/08/20 05:20 06/08/20 05:20 06/08/20 05:20 Oxygen Delivery Method Room Air Weight: 336 lb 3.2 oz Body Mass Index (BMI) 52.6 Intake and Output for Last 24 Hours 06/06/20 06/07/20 06/08/20 23:59 23:59 23:59 Intake Total 1651 Balance 1651 General: Alert, Oriented x3, Cooperative, No apparent distress HEENT: Atraumatic, PERRLA, EOMI, Normocephalic Oral: Moist Mucosa, No Gingival or Mucosal Lesions/ Ulcerations Neck: Supple, No JVD, Negative Carotid Bruits, Trachea Midline, Thyroid Normal Size and Texture Lungs: Clear to auscultation, Normal air movement, No rhonchi, No wheeze, No rales Cardiovascular: Regular rate, Regular Rhythm, Normal S1, Normal S2, PMI Normal Abdomen: Bowel Sounds Present, Soft, Non Tender, Non-Distended, No Hepato-splenomegaly, Obese Extremities: No clubbing, No cyanosis, No edema Skin: No rashes, No breakdown Lymphatic: No Cervical, Supraclavicular, or Inguinal Adenopathy Neurological: Cranial nerves II-XII grossly intact, Neuro grossly intact Psych/Mental Status: Normal Affect, Appropriate, Alert and oriented to time, place, person, mood and affect Microbiology Past 72 Hours 06/06/20 16:08 Mucosa - Nose SARS-CoV-2 Antigen (Rapid) - Final Laboratory Results 06/07/20 17:56: Vancomycin Trough 4.0 L Current Medications Acetaminophen (Acetaminophen 500 Mg Tablet) 500 mg PO Q4H PRN PRN PRN Reason: Pain 1-10 or Fever Last Admin: 06/08/20 07:55 Dose: 500 mg Documented by: Aripiprazole (Aripiprazole 10 Mg Tablet) 30 mg PO DAILY [facility] Last Admin: 06/07/20 08:43 Dose: 30 mg Documented by: Bisacodyl (Bisacodyl 10 Mg Suppository) 10 mg RECTAL DAILY PRN PRN Reason: Constipation Buspirone HCl (Buspirone 15 Mg Tablet) 15 mg PO TID [facility] Last Admin: 06/08/20 05:34 Dose: 15 mg Documented by: Citalopram Hydrobromide (Citalopram 40 Mg Tablet) 40 mg PO DAILY [facility] Last Admin: 06/07/20 08:44 Dose: 40 mg Documented by: Dicyclomine HCl (Dicyclomine 10 Mg Capsule) 20 mg PO Q6H PRN PRN PRN Reason: abdominal discomfort Famotidine (Famotidine 20 Mg Tablet) 20 mg PO BID [facility] Last Admin: 06/07/20 21:24 Dose: 20 mg Documented by: Ferrous Sulfate (Ferrous Sulfate 325 Mg Tablet) 325 mg PO BIDCM [facility] Last Admin: 06/08/20 07:55 Dose: 325 mg Documented by: Folic Acid (Folic Acid 1 Mg Tablet) 1 mg PO DAILY@0800 [facility] Last Admin: 06/08/20 07:55 Dose: 1 mg Documented by: Gabapentin (Gabapentin 300 Mg Capsule) 300 mg PO Q8H PRN PRN PRN Reason: moderate to severe anxiety Hydroxyzine Pamoate (Hydroxyzine Nara 25 Mg Capsule) 50 mg PO Q4H PRN PRN PRN Reason: mild anxiety Ciprofloxacin (Cipro) 400 mg in 200 mls @ 200 mls/hr IV Q12 [facility] Last Infusion: 06/07/20 23:02 Dose: Infused Documented by: Sodium Chloride () 250 mls @ 15 mls/hr IV .[id number] PRN PRN Reason: Saline Flush Sodium Chloride () 250 mls @ 15 mls/hr IV .[id number] PRN PRN Reason: Additional IVPB Infusion Ibuprofen (Ibuprofen 600 Mg Tablet) 600 mg PO Q8H PRN PRN PRN Reason: Pain Score 1-10 Last Admin: 06/08/20 01:58 Dose: 600 mg Documented by: Lamotrigine (Lamotrigine 150 Mg Tablet) 150 mg PO BID [facility] Last Admin: 06/07/20 21:24 Dose: 150 mg Documented by: Loperamide HCl (Loperamide 2 Mg Capsule) 2 mg PO Q4H PRN PRN PRN Reason: LOOSE STOOLS Neomycin/Polymyxin/Hydrocortisone (Neomycin Sulfate/Polymyxin/Hc Susp 10 Ml Bottle) 4 drop OTIC 4X/DAY [facility] Last Admin: 06/07/20 21:25 Dose: 4 drop Documented by: Nicotine (Nicotine 21 Mg Patch) 21 mg TD DAILY [facility] Last Admin: 06/07/20 08:43 Dose: 21 mg Documented by: Phenobarbital (Phenobarbital 32.4 Mg Tablet) 64.8 mg PO Q4H [facility]; Taper Stop: 06/11/20 01:14 Last Admin: 06/08/20 05:31 Dose: 64.8 mg Documented by: Sodium Chloride (0.9% Saline Lock 10 Ml Syringe) 10 - 40 ml IV UD PRN PRN Reason: SALINE FLUSH Thiamine HCl (Thiamine Hydrochloride 100 Mg Tablet) 100 mg PO DAILYCM [facility] Last Admin: 06/08/20 07:55 Dose: 100 mg Documented by: Thyroid (Thyroid 60 Mg Tablet) 60 mg PO DAILY@0600 [facility] Last Admin: 06/08/20 05:34 Dose: 60 mg Documented by: Trazodone HCl (Trazodone 100 Mg Tablet) 100 mg PO QHS [facility] Last Admin: 06/07/20 21:23 Dose: 100 mg Documented by: Medical Necessity - Tobacco Use Smoking Status: Current every day smoker Tobacco Use: Cigarettes Assessment/Plan All Active Problems (Last Updated 06/06/20 @ 16:[address] Derik Schrader, DO) Alcohol withdrawal (Acute) Otitis externa (Acute) This is a 29 years old female patient presented to the emergency room requesting admission for acute alcohol withdrawal, complaint of bilateral ear pain and she was found to have severe otitis externa and otitis media as well as mastoiditis. #1 acute alcohol withdrawal: She is on phenobarbital taper, thiamine, folic acid, as needed Neurontin, Vistaril, Motrin, Imodium, trazodone. Her blood alcohol level was less than 3. She denied significant withdrawal symptoms, she is feeling better. CBC and BMP was unremarkable. LFT was normal. Serum was negative. Her vital signs are stable. Plan to continue same treatment, possible DC home tomorrow. #2 acute bilateral otitis externa/otitis media: She is on IV ciprofloxacin and Otocort eardrops. She remained afebrile, no leukocytosis. Symptoms started to improve. ENT consulted and stated that there is no evidence of acute mastoiditis, agreed with the current treatment. Plan to continue same treatment, patient will need follow-up with ENT as outpatient. #3 anxiety and depression: Continue Abilify, Celexa, BuSpar, Lamictal and trazodone. #4 hypothyroidism: Stable, continue [place] Thyroid. #5 DVT prophylaxis: Low risk patient, no prophylaxis indicated. This note was generated with [employer] dictation software. It may contain incorrect words, spelling, and punctuation that were not noted in checking the note before signing. Inpatient E&M: 88333 Subs Hosp L2
[2020-06-08 09:22] VITALS: BP 119/79; PULSE 86; RESP 18; TEMP 35.9; O2SAT 96
[2020-06-08] MEDS: Neomycin Sulfate/Polymyxin/Hc Susp 10 ML Bottle 4 DRP OTIC ×4 (09:24→21:58)
[2020-06-08] MEDS: ARIPiprazole 10 MG Tablet 30 MG PO (09:24)
[2020-06-08] MEDS: Citalopram 40 MG TABLET PO (09:25)
[2020-06-08] MEDS: Famotidine 20 MG Tablet PO ×2 (09:26→21:58)
[2020-06-08] MEDS: lamoTRIgine 150 MG Tablet PO ×2 (09:26→21:57)
[2020-06-08] MEDS: Ciprofloxacin 400 MG/200 ML BAG 200 MG IV ×2 (09:31→21:56)
[2020-06-08] MEDS: 0.9% Saline Lock 10 ML Syringe IV ×2 (13:47→21:56)
[2020-06-08 14:15] VITALS: BP 130/79; PULSE 85; RESP 16; TEMP 36.1; O2SAT 95
[2020-06-08] MEDS: traZODone 100 MG Tablet PO (21:58)
[2020-06-09] VITALS: BP 109/73; PULSE 68; RESP 16; TEMP 35.2; O2SAT 98
[2020-06-09] MEDS: Phenobarbital 32.4 MG Tablet 64.8 MG PO ×2 (01:20→07:41)
[2020-06-09] MEDS: busPIRone 15 MG TABLET PO (05:28)
[2020-06-09] MEDS: Thyroid 60 MG Tablet PO (05:28)
[2020-06-09] MEDS: Ibuprofen 600 MG Tablet PO (05:32)
[2020-06-09 05:49] VITALS: BP 118/73; PULSE 78; RESP 16; TEMP 36.2; O2SAT 96
[2020-06-09] MEDS: Acetaminophen 500 MG Tablet PO (07:16)
[2020-06-09] MEDS: Ferrous Sulfate 325 MG Tablet PO (07:17)
--- NOTE | 2020-06-09 07:29 | CPS ---
Talked w/pt about her home CPAP. She has not worn it in 5 years. Samantha. counseled pt about the importance of compliance with CPAP, explained that pt will probably have to have a new sleep study for her new insurance to cover it.
[2020-06-09] MEDS: Folic Acid 1 MG Tablet PO (07:41)
[2020-06-09] MEDS: Thiamine Hydrochloride 100 MG Tablet PO (07:42)
[2020-06-09] MEDS: ARIPiprazole 10 MG Tablet 30 MG PO (07:44)
[2020-06-09] MEDS: lamoTRIgine 150 MG Tablet PO (07:45)
[2020-06-09] MEDS: Famotidine 20 MG Tablet PO (07:45)
[2020-06-09] MEDS: Citalopram 40 MG TABLET PO (07:45)
--- NOTE | 2020-06-09 09:37 | ADDICTION ---
This video game script writer attempted to meet with pt in her room to finalize d/c plans. Pt to direct admit into residential treatment with [facility] upon d/c from [facility]. Pt did not wake up to this video game script writer's multiple attempts to rouse her. This video game script writer is scheduled for transportation at 10:30am with [facility] transportation. [facility] SW notified.
[2020-06-09 10:00] VITALS: BP 123/73; PULSE 67; RESP 18; TEMP 37.1; O2SAT 98
--- NOTE | 2020-06-09 10:22 | PCM.DC.SUM ---
Discharge Date and Diagnosis - Problem List Patient Problems: Active and Suspected Problems (Last Updated 06/06/20 @ 16:[address] Derik Schrader DO) Alcohol withdrawal (Acute) Otitis externa (Acute) Date of Admission: 06/06/20 Date of Discharge: 06/09/20 - Primary Discharge Diagnosis Acute Problems: Active Problems (Last Updated 06/06/20 @ 16:[address] Derik Schrader DO) Alcohol withdrawal (Acute) Otitis externa (Acute) - Secondary Discharge Diagnosis Chronic Problems: Chronic Problems (Last Updated 06/06/20 @ 16:[address] Derik Schrader DO) Recurrent loss (Chronic) Hospital Course and Treatment Operations: None Procedures: None Summary of Care Provided: Ms Wahl is a 29 year old F who presented to the emergency department on 06/06/2020 for acute alcohol withdrawal. At that point she was seeking detox. She reported that she drinks a bottle of vodka a day with her last drink being the morning of admission. At the time of mission she was tremulous. She also complained of bilateral drainage from her ears at the time of admission. She was diagnosed with otitis externa and had matheus placed and was placed on Unasyn. She was placed on a phenobarb taper with supportive agents for somatic complaints. She was seen by ENT for this as well and a CT of her head was done to assess the ear canals for deeper infection CT showed severe and extensive external otitis and otitis media right greater than left. ENT felt based on the scan she does not have mastoiditis. She was placed on neomycin drops 4 times a day for total of [address] Nesbitt and he recommended she be placed on ciprofloxacin orally as an outpatient. She will complete a 10-day course of both these. The matheus are to stay in place and she is to follow-up with Dr. Nesbitt after discharge. She is being discharged to inpatient rehab facility for alcohol abuse and is in stable condition. Discharge diagnoses Acute alcohol withdrawal Alcoholism Otitis media Otitis externa Hypothyroidism Anxiety Depression Morbid obesity Discharge time greater than 35 minutes Patient Problems: Active and Suspected Problems (Last Updated 06/06/20 @ 16:[address] Derik Schrader DO) Alcohol withdrawal (Acute) Otitis externa (Acute) - Physical Exam Vitals/I&O's: Vital Signs Temp Pulse Resp BP Pulse Ox 97.2 F L 78 16 118/73 96 06/09/20 05:49 06/09/20 05:49 06/09/20 05:49 06/09/20 05:49 06/09/20 05:49 Oxygen Delivery Method Room Air Weight: 152.498 kg Body Mass Index (BMI) 52.6 Intake and Output for Last 24 Hours 06/07/20 06/08/20 06/09/20 23:59 23:59 23:59 Intake Total 1779 1150 / 1150 Balance 1779 1150 / 1150 General: Alert, Oriented x3, Cooperative, No apparent distress, Well developed, Well nourished, - - Obese white female lying in bed sleeping awakens easily HEENT: Atraumatic, PERRLA, EOMI, Normocephalic, - - Matheus in ears, patient with difficulty hearing Oral: Moist Mucosa, No Gingival or Mucosal Lesions/ Ulcerations, Dry Mucosa Neck: Supple, Trachea Midline Lungs: Clear to auscultation, Normal air movement, No rhonchi, No wheeze, No rales Cardiovascular: Regular rate, Regular Rhythm, Normal S1, Normal S2, No murmurs Abdomen: Bowel Sounds Present, Soft, Non Tender, Non-Distended, Obese, No hernias noted Extremities: No clubbing, No cyanosis, No edema, Capillary Refill Less than 3 Seconds, Peripheral Pulses Normal Skin: No rashes, No breakdown Musculoskeletal: No Muscle Wasting Lymphatic: No Cervical, Supraclavicular, or Inguinal Adenopathy Neurological: Cranial nerves II-XII grossly intact, Neuro grossly intact Psych/Mental Status: Normal Affect, Appropriate Microbiology Past 72 Hours 06/06/20 16:08 Mucosa - Nose SARS-CoV-2 Antigen (Rapid) - Final Current Medications Acetaminophen (Acetaminophen 500 Mg Tablet) 500 mg PO Q4H PRN PRN PRN Reason: Pain 1-10 or Fever Last Admin: 06/09/20 07:16 Dose: 500 mg Documented by: Aripiprazole (Aripiprazole 10 Mg Tablet) 30 mg PO DAILY [facility] Last Admin: 06/09/20 07:44 Dose: 30 mg Documented by: Bisacodyl (Bisacodyl 10 Mg Suppository) 10 mg RECTAL DAILY PRN PRN Reason: Constipation Buspirone HCl (Buspirone 15 Mg Tablet) 15 mg PO TID [facility] Last Admin: 06/09/20 05:28 Dose: 15 mg Documented by: Citalopram Hydrobromide (Citalopram 40 Mg Tablet) 40 mg PO DAILY [facility] Last Admin: 06/09/20 07:45 Dose: 40 mg Documented by: Dicyclomine HCl (Dicyclomine 10 Mg Capsule) 20 mg PO Q6H PRN PRN PRN Reason: abdominal discomfort Famotidine (Famotidine 20 Mg Tablet) 20 mg PO BID [facility] Last Admin: 06/09/20 07:45 Dose: 20 mg Documented by: Ferrous Sulfate (Ferrous Sulfate 325 Mg Tablet) 325 mg PO BIDCM [facility] Last Admin: 06/09/20 07:17 Dose: 325 mg Documented by: Folic Acid (Folic Acid 1 Mg Tablet) 1 mg PO DAILY@0800 [facility] Last Admin: 06/09/20 07:41 Dose: 1 mg Documented by: Gabapentin (Gabapentin 300 Mg Capsule) 300 mg PO Q8H PRN PRN PRN Reason: moderate to severe anxiety Hydroxyzine Pamoate (Hydroxyzine Nara 25 Mg Capsule) 50 mg PO Q4H PRN PRN PRN Reason: mild anxiety Ciprofloxacin (Cipro) 400 mg in 200 mls @ 200 mls/hr IV Q12 [facility] Last Infusion: 06/08/20 23:00 Dose: Infused Documented by: Sodium Chloride () 250 mls @ 15 mls/hr IV .[id number] PRN PRN Reason: Saline Flush Sodium Chloride () 250 mls @ 15 mls/hr IV .[id number] PRN PRN Reason: Additional IVPB Infusion Ibuprofen (Ibuprofen 600 Mg Tablet) 600 mg PO Q8H PRN PRN PRN Reason: Pain Score 1-10 Last Admin: 06/09/20 05:32 Dose: 600 mg Documented by: Lamotrigine (Lamotrigine 150 Mg Tablet) 150 mg PO BID [facility] Last Admin: 06/09/20 07:45 Dose: 150 mg Documented by: Loperamide HCl (Loperamide 2 Mg Capsule) 2 mg PO Q4H PRN PRN PRN Reason: LOOSE STOOLS Neomycin/Polymyxin/Hydrocortisone (Neomycin Sulfate/Polymyxin/Hc Susp 10 Ml Bottle) 4 drop OTIC 4X/DAY [facility] Last Admin: 06/08/20 21:58 Dose: 4 drop Documented by: Nicotine (Nicotine 21 Mg Patch) 21 mg TD DAILY [facility] Last Admin: 06/09/20 07:42 Dose: 21 mg Documented by: Phenobarbital (Phenobarbital 32.4 Mg Tablet) 64.8 mg PO Q6H [facility]; Taper Stop: 06/11/20 01:14 Last Admin: 06/09/20 07:41 Dose: 64.8 mg Documented by: Sodium Chloride (0.9% Saline Lock 10 Ml Syringe) 10 - 40 ml IV UD PRN PRN Reason: SALINE FLUSH Last Admin: 06/08/20 21:56 Dose: 10 ml Documented by: Thiamine HCl (Thiamine Hydrochloride 100 Mg Tablet) 100 mg PO DAILYCM [facility] Last Admin: 06/09/20 07:42 Dose: 100 mg Documented by: Thyroid (Thyroid 60 Mg Tablet) 60 mg PO DAILY@0600 [facility] Last Admin: 06/09/20 05:28 Dose: 60 mg Documented by: Trazodone HCl (Trazodone 100 Mg Tablet) 100 mg PO QHS [facility] Last Admin: 06/08/20 21:58 Dose: 100 mg Documented by: Home Medications: Medications to take at Discharge Aripiprazole [Abilify] 30 mg PO DAILY 06/06/20 Buspirone HCl 15 mg PO TID 06/06/20 Citalopram [Celexa] 40 mg PO DAILY 06/06/20 Famotidine 20 mg PO BID 06/06/20 Ferrous Sulfate 325 mg PO BID 06/06/20 Hydroxyzine Pamoate 50 mg PO Q8H PRN PRN 06/06/20 Lamotrigine [Lamictal] 150 mg PO BID 06/06/20 Thyroid [[facility] Thyroid] 60 mg PO DAILY 06/06/20 traZODone [Desyrel] 100 mg PO QHS 06/06/20 Ciprofloxacin [Cipro] 500 mg PO BID 7 Days #14 tab 06/09/20 Ibuprofen [Motrin] 600 mg PO Q8H PRN PRN #30 tab 06/09/20 Neomycin Sulfate/Polymyxin/Hc [Otocort Susp ([facility])] 4 drp OTIC 4X/DAY 7 Days #1 bottle 06/09/20 Following Prescriptions Were Given to Patient: Ciprofloxacin [Cipro] 500 mg PO BID 7 Days #14 tab Transmission Status: Pending to [place] [id number] Ibuprofen [Motrin] 600 mg PO Q8H PRN PRN #30 tab PRN Reason: Pain Score 1-10 Transmission Status: Sent to [place] [address] Neomycin Sulfate/Polymyxin/Hc [Otocort Susp ([facility])] 4 drp OTIC 4X/DAY 7 Days #1 bottle Transmission Status: Sent to [place] [address] Primary Care Physician: Jony Vásquez MD [Primary Care Provider] - Medical Necessity - Tobacco Use Smoking Status: Current every day smoker Tobacco Use: Cigarettes Meaningful Use Info Meaningful Use Diagnoses (Choose all that apply): None applicable Inpatient E&M: [id number] [facility]
--- NOTE | 2020-06-09 10:27 | DCINST_ITS ---
- Discharge Diagnoses Current Active Problems: Current Active and Chronic Problems (Last Updated 06/06/20 @ 16:[address] Derik Schrader, DO) Recurrent loss (Chronic) Alcohol withdrawal (Acute) Otitis externa (Acute) You will use the following diet at home:: No restrictions Your food should be the consistency of: Regular Your liquids should be the consistency of: Regular/Thin Discharge Activity: Return to Normal Activity Call your doctor if you observe: Fever of 101 or Higher, - - Increased or change in drainage from ear, increased pain Allergies/Adverse Reactions: Allergies divalproex sodium [From Depakote] Allergy (Verified 06/06/20 14:26) Rash meloxicam Allergy (Verified 06/06/20 14:26) Rash swelling Medications to take at Discharge Aripiprazole [Abilify] 30 mg PO DAILY 06/06/20 Buspirone HCl 15 mg PO TID 06/06/20 Citalopram [Celexa] 40 mg PO DAILY 06/06/20 Famotidine 20 mg PO BID 06/06/20 Ferrous Sulfate 325 mg PO BID 06/06/20 Hydroxyzine Pamoate 50 mg PO Q8H PRN PRN 06/06/20 Lamotrigine [Lamictal] 150 mg PO BID 06/06/20 Thyroid [[place] Thyroid] 60 mg PO DAILY 06/06/20 traZODone [Desyrel] 100 mg PO QHS 06/06/20 Ciprofloxacin [Cipro] 500 mg PO BID 7 Days #14 tab 06/09/20 Ibuprofen [Motrin] 600 mg PO Q8H PRN PRN #30 tab 06/09/20 Neomycin Sulfate/Polymyxin/Hc [Otocort Susp ([facility])] 4 drp OTIC 4X/DAY 7 Days #1 bottle 06/09/20 The following prescriptions were given: Ciprofloxacin [Cipro] 500 mg PO BID 7 Days #14 tab Transmission Status: Received by [facility] [place] [id number] Ibuprofen [Motrin] 600 mg PO Q8H PRN PRN #30 tab PRN Reason: Pain Score 1-10 Transmission Status: Received by [facility] [place] [id number] Neomycin Sulfate/Polymyxin/Hc [Otocort Susp ([facility])] 4 drp OTIC 4X/DAY 7 Days #1 bottle Transmission Status: Received by [facility] [address] Primary Care Physician: Jony Vásquez MD [Primary Care Provider] - Please follow up with your Primary Care Physician in: 2 weeks after discharge from inpatient rehab Test Results: Test results from this visit will be discussed in further detail at your follow- up appointment, if applicable. Please Follow Up With: Leighton Nesbitt MD When: 1 week follow-up for ears
[2020-06-09 10:28] VITALS: BP 123/73; PULSE 67; RESP 18; TEMP 37.1; O2SAT 98
== END 2020-06-09 10:39 | DRG 775 ==
LOC: ED 15:38 → MS3 16:47
PROVIDERS: Emergency Provider Emergency Medicine; PCP Family Medicine; Visit Provider Internal Medicine
DX: F10.230 Alcohol dependence with withdrawal, uncomplicated (principal); Y90.9 Presence of alcohol in blood, level not specified; H66.93 Otitis media, unspecified, bilateral; H60.93 Unspecified otitis externa, bilateral; E03.9 Hypothyroidism, unspecified; Z68.43 Body mass index [BMI] 50.0-59.9, adult; E66.01 Morbid (severe) obesity due to excess calories; F41.9 Anxiety disorder, unspecified; F32.9 Major depressive disorder, single episode, unspecified; Z79.899 Other long term (current) drug therapy; F17.210 Nicotine dependence, cigarettes, uncomplicated
CPT/HCPCS: 36415; 70480; 80048; 80053; 80202; 82077; 84703; 85025; 87426; 97802; 99285; 99406; J7030; J7040; A4216; J0295; J0744

== ENCOUNTER 2021-02-24 16:57 | Emergency (ER) | payer MEDICAID, SELFPAY ==
[2021-02-24 17:50] VITALS: BP 126/64; PULSE 120; RESP 22; TEMP 36.1; O2SAT 98; BMI 55.4
--- NOTE | 2021-02-24 18:28 | EKG12_ITS ---
Test Reason : [facility] [place] Blood Pressure : / mmHG Vent. Rate : 095 BPM Atrial Rate : 095 BPM P-R Int : 162 ms QRS Dur : 104 ms QT Int : 390 ms P-R-T Axes : 029 046 044 degrees QTc Int : 490 ms Normal sinus rhythm Prolonged QT Abnormal ECG Confirmed by KIESHA FREEMAN, ALEXANDER ([id number]), web editor TYREL SEARS ([id number]) on 02/26/2021 8:46:41 AM Referred By: BB Confirmed By:ALEXANDER POP MD
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
[2021-02-24 18:59] LABS: Basophil# 0.03 X10^3/uL; Basophil% 0.5 % (0-1); Eosinophil# 0.16 X10^3/uL; Eosinophils% 2.7 % (0-5); Hematocrit 41.9 % (37-47); Lymphocyte % 40.3 % (19-41); Mean Corp Hgb Conc 33.4 g/dL (32-36); Mean Corpuscular Hgb 30.5 pg (27.0-32.0); Mean Corpuscular Volume 91.3 fL (81-99); Mean Platelet Vol. 10.3 fl (6.2-12.0); Monocyte# 0.32 X10^3/uL; Monocyte% 5.4 % (0-10); NRBC Flagged by Analyzer 0 % (0-5); Neutrophil # 3.04 X10^3/uL (2.7-7.7); Neutrophil % 50.9 % (47-70); Platelet Count 214 K/mm3 (150-450); RBC Distribution Width CV 14.2 % (11.6-14.6); RBC Distribution Width SD 46.7 fl (35.1-43.9); Red Blood Count 4.59 M/mm3 (4.2-5.4)
[2021-02-24 19:11] LABS: Internal QC Validated? YES +Cl - CLEAR BKGD; Pregnancy, Serum, hCG Quali. NEGATIVE Negative
[2021-02-24 19:17] LABS: ALB/GLOB Ratio 0.8 RATIO (0.9-2.4); AST(SGOT) 36 U/L (15-37); Alanine Aminotransfer ALT/SGPT 42 U/L (13-56); Albumin, Serum 3.4 g/dL (3.2-5.0); Alkaline Phosphatase 75 U/L (45-117); Anion Gap 11 (5-15); BUN 9 mg/dL (7-18); BUN/Creat Ratio 13.1 RATIO (10-20); Calcium,Total 8.6 mg/dL (8.5-10.1); Chloride 106 mmol/L (98-107); Creatinine, Serum 0.68 mg/dL (0.55-1.02); EST Glomerular Filtration Rate 106 mL/min (>60); Est Glom Filt Rate - Afr Amer 128 mL/min (>60); Globulin 4.2 g/dL (2.2-4.2); Glucose 110 mg/dL (74-106); Potassium 3.8 mmol/L (3.5-5.1); Protein, Total 7.6 g/dL (6.4-8.2); Sodium Level 142 mmol/L (136-145)
[2021-02-24 20:22] LABS: Amphetamine Urine VISTA NEGATIVE (<1000 ng/mL); Barbiturate Urine VISTA NEGATIVE (< 200 ng/mL); Benzodiazepine Urine VISTA NEGATIVE (< 200 ng/mL); Cocaine Urine VISTA NEGATIVE (< 300 ng/mL); Ecstacy Urine VISTA NEGATIVE (< 500 ng/mL); Methadone Urine VISTA NEGATIVE (< 300 ng/mL); PCP Urine VISTA NEGATIVE (< 25 ng/mL); THC Urine VISTA NEGATIVE (< 50 ng/mL); Vista UDS pH Range 5
[2021-02-24 20:35] VITALS: RESP 17; O2SAT 98
[2021-02-24] MEDS: Lidocaine/Epi/Tetracaine 50 ML 1 APPLIC TOPICAL (20:35)
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
[2021-02-24 21:24] VITALS: PULSE 74
[2021-02-24 21:33] VITALS: BP 128/74; PULSE 110; RESP 19; TEMP 36.7; O2SAT 97
[2021-02-24] MEDS: Acetaminophen 325 MG Tablet 650 MG PO (22:02)
--- NOTE | 2021-03-14 16:41 | CM.ED ---
SW Note [facility] for assessment and investigation. Assigned worker is Linda Rojas and volunteer services supervisor is Rosina Carrasco. Yesenia LIGHT
== END 2021-02-24 22:01 | disposition short-term general hospital (02) ==
PROVIDERS: Emergency Provider Emergency Medicine; PCP Family Medicine
DX: F31.9 Bipolar disorder, unspecified (principal); R45.851 Suicidal ideations; F10.129 Alcohol abuse with intoxication, unspecified; S00.12XA Contusion of left eyelid and periocular area, initial encounter; Y04.0XXA Assault by unarmed brawl or fight, initial encounter; S61.213A Laceration without foreign body of left middle finger without damage to nail, initial encounter; W26.8XXA Contact with other sharp object(s), not elsewhere classified, initial encounter; Y93.9 Activity, unspecified; Y92.9 Unspecified place or not applicable; Z63.0 Problems in relationship with spouse or partner; Z79.899 Other long term (current) drug therapy; F17.210 Nicotine dependence, cigarettes, uncomplicated
CPT/HCPCS: 80053; 80307; 82077; 84703; 85025; 87426; 93005; 99285

== ENCOUNTER 2021-04-24 17:01 | Emergency (ER) | payer MEDICAID, SELFPAY ==
[2021-04-24 17:02] VITALS: BP 135/102; PULSE 116; RESP 18; TEMP 36.2; O2SAT 94; BMI 55.7
== END 2021-04-24 18:52 | disposition left against medical advice (07) ==
LOC: ED 18:56
PROVIDERS: PCP Family Medicine
DX: Z53.21 Procedure and treatment not carried out due to patient leaving prior to being seen by health care provider (principal)

== ENCOUNTER 2021-07-28 09:25 | Inpatient (IN) | payer MEDICAID, SELFPAY ==
[2021-07-28] VITALS (8 sets, daily range): BP systolic 115–150; BP diastolic 53–105; PULSE 74–98; RESP 16–18; TEMP 36–37.4; O2SAT 97–98; BMI 57.2; BMI 58.1
--- NOTE | 2021-07-28 10:06 | EDS_ITS ---
HPI History of Present Illness Chief Complaint: Substance Abuse Informant: patient Narrative Narrative: Patient is here for help for alcohol detox. She had her last detox here about a year ago. She did stay sober for about 90 days. She states she has been drinking heavily again. She can drink up to 1/2 gallon of vodka a day. The last couple days she has been trying to cut back. She gets shaky. She is nauseated. She has Zofran at home which help prevent vomiting. She has had some soft stools but no blood. She has been drinking about a half of 1/5 of vodka a day. For the last couple days. She is not really eating. She states she needs help and wants to detox again for her alcohol. Other than the nausea she is not complaining of any medical or recent issues. Her only medication now is for thyroid. [facility] Medical History Anxiety Bipolar disorder Depression Hypothyroidism Home Medications buspirone 15 mg PO TID 06/06/20 [History Last Taken 06/05/20] famotidine 20 mg PO BID 06/06/20 [History Last Taken 06/05/20] ferrous sulfate 325 mg PO BID 06/06/20 [History Last Taken 06/05/20] hydroxyzine pamoate 50 mg PO Q8H PRN PRN 06/06/20 [History Last Taken 06/05/20] thyroid (pork) 60 mg PO DAILY 06/06/20 [History Last Taken 06/04/20] trazodone 100 mg PO QHS 06/06/20 [History Last Taken 06/05/20] Allergy/AdvReac Type Severity Reaction Status Date / Time divalproex sodium Allergy Rash Verified 04/24/21 17:02 [From Depakote] meloxicam Allergy Rash Verified 04/24/21 17:02 Social History Smoking Status: Current every day smoker tobacco type: cigarettes ROS ROS ED Constitutional Constitutional ED: Denies chills or fever(s) ENT ENT ED: Denies rhinorrhea or sore throat Cardiovascular Cardiovascular: Denies chest pain Respiratory/Chest Respiratory/Chest: Denies cough or dyspnea Gastrointestinal Gastrointestinal: Reports nausea and vomiting; Denies abdominal pain, constipation, diarrhea or melena Genitourinary Genitourinary ED: Denies dysuria Musculoskeletal Musculoskeletal: Denies myalgias Integumentary Denies rash Neurologic Neurologic: Denies headache(s) Endocrine Endocrinology: Denies polydipsia or polyuria Allergic/Immunologic Allergic/Immunologic ED: Denies urticaria EXAM Physical Exam Const Vital Signs: 07/28/21 09:25 07/28/21 10:25 07/28/21 11:00 Temperature 96.8 F L Temperature Source Temporal Pulse Rate 98 Respiratory Rate 16 16 16 Blood Pressure 150/105 H Blood Pressure Mean 120 Pulse Ox 97 Oxygen Delivery Method Room Air Positive well nourished and well developed General Appearance ED: well developed and NAD; Negative for cyanotic or diaphoretic HEENT Reports moist mucous membranes HEENT Narrative: Dukas membranes are still moist Eyes Eyes Narrative: Mild conjunctival injection bilaterally. Neck no JVD Chest Wall inspection of chest normal Resp normal respiratory effort and clear to auscultation bilaterally Cardio regular rate and regular rhythm Rate: Negative for tachycardic GI normal to inspection, nondistended, normoactive bowel sounds and non-tender Palpation: soft Back/Spine no CVA tenderness Extremity normal to inspection Neuro oriented x3 Sensorium / Orientation: alert Psych mental status grossly normal Skin no rashes or lesions noted MDM MDM MDM Narrative Medical decision making narrative: We did do blood work on this patient. One of the concerns was potential for alcoholic ketoacidosis. However, her anion gap and carbon dioxide are normal. is negative. Mild bump of her liver function test. Hemoglobin is slightly elevated consistent with some mild dehydration. White counts normal. Urine was clean. Alcohol level was negative. This patient does have some anxiety agitation nervousness, mildly quick heart rate, mild elevation of blood pressure. This is consistent with some withdrawal. However, she also drinks quite a bit of alcohol and I think she is at risk for worsening symptoms. Case will be discussed with hospitalist. Lab Data Attestation: I reviewed the patient's lab results. Labs: Laboratory Results - last 24 hr 07/28/21 07/28/21 07/28/21 10:15 10:15 10:15 WBC 7.4 RBC 5.24 Hgb 15.9 H Hct 46.0 MCV 87.8 MCH 30.3 MCHC 34.6 RDW Std Deviation 43.4 RDW Coeff of Stacey 13.6 Plt Count 211 MPV 10.4 Immature Gran % (Auto) 0.300 Neut % (Auto) 63.7 Lymph % (Auto) 30.1 Glenn % (Auto) 5.1 Eos % (Auto) 0.3 Baso % (Auto) 0.5 Absolute Neuts (auto) 4.7 Absolute Lymphs (auto) 2.24 Nucleated RBC % 0 Sodium 134 L Potassium 4.1 Chloride 98 Carbon Dioxide 24.0 Anion Gap 12 BUN 15 Creatinine 1.04 H Estim Creat Clear Calc 75.52 Est GFR (MDRD) Af Amer 79 Est GFR (MDRD) Non-Af 65 BUN/Creatinine Ratio 14.4 Glucose 126 H Calcium 8.2 L Total Bilirubin 0.70 AST 156 H ALT 212 H Alkaline Phosphatase 85 Total Protein 7.9 Albumin 3.5 Globulin 4.4 H Albumin/Globulin Ratio 0.8 L Serum , Qual NEGATIVE Urine Color Urine Clarity Urine pH Ur Specific [place] Urine Protein Urine Glucose (UA) Urine Ketones Urine Occult Blood Urine Nitrite Urine Bilirubin Urine Urobilinogen Ur Leukocyte Esterase Urine RBC Urine WBC Ur Squamous Epith Cells Urine Bacteria Urine Mucus Ethyl Alcohol 07/28/21 07/28/21 10:19 10:21 WBC RBC Hgb Hct MCV MCH MCHC RDW Std Deviation RDW Coeff of Stacey Plt Count MPV Immature Gran % (Auto) Neut % (Auto) Lymph % (Auto) Glenn % (Auto) Eos % (Auto) Baso % (Auto) Absolute Neuts (auto) Absolute Lymphs (auto) Nucleated RBC % Sodium Potassium Chloride Carbon Dioxide Anion Gap BUN Creatinine Estim Creat Clear Calc Est GFR (MDRD) Af Amer Est GFR (MDRD) Non-Af BUN/Creatinine Ratio Glucose Calcium Total Bilirubin AST ALT Alkaline Phosphatase Total Protein Albumin Globulin Albumin/Globulin Ratio Serum , Qual Urine Color Yellow Urine Clarity Sl. Cloudy Urine pH 6.0 Ur Specific [place] 1.025 Urine Protein 30 H Urine Glucose (UA) Normal Urine Ketones 5 H Urine Occult Blood Negative Urine Nitrite Negative Urine Bilirubin Negative Urine Urobilinogen Normal Ur Leukocyte Esterase Negative Urine RBC 0 SEEN Urine WBC 0 SEEN Ur Squamous Epith Cells 0-5 SEEN Urine Bacteria 1+ Urine Mucus 1+ Ethyl Alcohol < 3.0 Discharge Plan Triage Chief Complaint: Substance Abuse ED Provider: Spencer Carter Dx/Rx/DC Orders Clinical Impression: Alcohol withdrawal, Alcohol abuse Prescriptions: No Action hydroxyzine pamoate 50 MG capsule 50 mg PO Q8H PRN PRN (Reason: Anxiety) RF: 0 famotidine 20 MG tablet 20 mg PO BID RF: 0 trazodone 100 MG tablet 100 mg PO QHS RF: 0 ferrous sulfate 325 MG tablet 325 mg PO BID RF: 0 buspirone 15 MG tablet 15 mg PO TID RF: 0 thyroid (pork) 60 MG tablet 60 mg PO DAILY RF: 0 Primary Care Provider: Jony Vásquez Referrals: Jony Vásquez MD [Primary Care Provider] - Disposition Disposition: Acute Care Hospital [facility]
[2021-07-28] MEDS: 0.9% Normal Saline 1,000 ML 1000 ML IV (10:14)
[2021-07-28] MEDS: Ondansetron 4 MG/2 ML Vial IV (10:14)
[2021-07-28 10:27] LABS: Red Blood Cells-Urine 0 SEEN /hpf (0-5); White Blood Cells 0 SEEN /hpf (0-5)
[2021-07-28 10:28] LABS: Color, Urine Yellow (Yellow); Glucose, Dipstick Normal (Normal); Ketone-Dipstick 5 mg/dl (Negative); Leukocyte Esterase-Dipstick Negative /ul (Negative); Nitrite-Dipstick Negative (Negative); Occult Blood-Urine Negative /ul (Negative); Protein-Dipstick 30 mg/dl (Negative); Specific Gravity, Urine 1.025 (1.002-1.030); Urine Bilirubin Dipstick Negative (Negative); Urine Clarity Sl. Cloudy (Clear); Urine Urobilinogen Normal (Normal)
[2021-07-28 10:29] LABS: Absolute Lymphocyte Count 2.24 X10^3/uL (0.83-4.51); Absolute Neutrophil Count 4.7 X10^3/uL (2.0-7.7); Basophil# 0.04 X10^3/uL; Basophil% 0.5 % (0-1); Eosinophil# 0.02 X10^3/uL; Eosinophils% 0.3 % (0-5); Hemoglobin 15.9 g/dL (12.0-15.0); Lymphocyte # 2.24 X10^3/ul (0.83-4.51); Lymphocyte % 30.1 % (19-41); Mean Corp Hgb Conc 34.6 g/dL (32-36); Mean Corpuscular Hgb 30.3 pg (27.0-32.0); Mean Corpuscular Volume 87.8 fL (81-99); Mean Platelet Vol. 10.4 fl (6.2-12.0); Monocyte# 0.38 X10^3/uL; Monocyte% 5.1 % (0-10); NRBC Flagged by Analyzer 0 % (0-5); Neutrophil # 4.73 X10^3/uL (2.7-7.7); Neutrophil % 63.7 % (47-70); Platelet Count 211 K/mm3 (150-450); RBC Distribution Width CV 13.6 % (11.6-14.6); RBC Distribution Width SD 43.4 fl (35.1-43.9); Red Blood Count 5.24 M/mm3 (4.2-5.4); White Blood Count 7.4 K/mm3 (4.4-11.0)
[2021-07-28 10:34] LABS: Bacteria 1+ /hpf (None Seen); Mucous, Urine 1+ /hpf (<or=2+); Squamous Epithelial Cells - UA 0-5 SEEN /hpf (5-10)
[2021-07-28 10:43] LABS: ALB/GLOB Ratio 0.8 RATIO (0.9-2.4); AST(SGOT) 156 U/L (15-37); Alanine Aminotransfer ALT/SGPT 212 U/L (13-56); Albumin, Serum 3.5 g/dL (3.2-5.0); Alkaline Phosphatase 85 U/L (45-117); Anion Gap 12 (5-15); BUN 15 mg/dL (7-18); BUN/Creat Ratio 14.4 RATIO (10-20); Calcium,Total 8.2 mg/dL (8.5-10.1); Chloride 98 mmol/L (98-107); Creatinine, Serum 1.04 mg/dL (0.55-1.02); EST Glomerular Filtration Rate 65 mL/min (>60); Est Glom Filt Rate - Afr Amer 79 mL/min (>60); Estimated Creatinine Clearance 75.52 ml/min; Globulin 4.4 g/dL (2.2-4.2); Glucose 126 mg/dL (74-106); Potassium 4.1 mmol/L (3.5-5.1); Protein, Total 7.9 g/dL (6.4-8.2); Sodium Level 134 mmol/L (136-145)
[2021-07-28 11:03] LABS: Internal QC Validated? YES +Cl - CLEAR BKGD; Pregnancy, Serum, hCG Quali. NEGATIVE Negative
[2021-07-28 11:09] LABS: Alcohol, Blood (Medical)-Serum < 3.0 mg/dL
--- NOTE | 2021-07-28 11:52 | PCM.HP.STD ---
HPI - General General Date of Admission: 07/28/21 Date of Service: 07/28/21 Chief Complaint: Request for alcohol withdrawal HPI Narrative ELOY LOW, is a 30 F who presents with the above. Patient drinks about a pint of vodka every day. Her last drink was at midnight the day of admission. She admits to nausea and anxiety. She denied any use of alcohol withdrawal seizures. She has history of hypothyroidism. Vitals in the ED were stable. Admitting blood work was unremarkable except for hyponatremia 134, creatinine 1.04, baseline creatinine less than 1. LFTs are slightly elevated. [facility] Medical History Anxiety Bipolar disorder Depression Hypothyroidism Home Medications buspirone 15 mg PO TID 06/06/20 [History Last Taken 06/05/20] famotidine 20 mg PO BID 06/06/20 [History Last Taken 06/05/20] ferrous sulfate 325 mg PO BID 06/06/20 [History Last Taken 06/05/20] hydroxyzine pamoate 50 mg PO Q8H PRN PRN 06/06/20 [History Last Taken 06/05/20] thyroid (pork) 60 mg PO DAILY 06/06/20 [History Last Taken 06/04/20] trazodone 100 mg PO QHS 06/06/20 [History Last Taken 06/05/20] Allergy/AdvReac Type Severity Reaction Status Date / Time divalproex sodium Allergy Rash Verified 04/24/21 17:02 [From Depakote] meloxicam Allergy Rash Verified 04/24/21 17:02 Family History Grandfather Heart disease Father Diabetes Mother Diabetes Surgical History Hx of tonsillectomy Social History Smoking Status: Current every day smoker tobacco type: cigarettes Smoking packs per day: 1 Smoking cigarettes per day: 20.0 ROS ROS Narrative Constitutional: Denies: Anorexia, Chills, Fever, Night Sweats, Weight Change Eyes: Denies: Blurred vision, Cataracts, Conjunctivae Inflammation, Pain, Redness, Vision Change HEENT: Denies: Difficulty Hearing, Difficulty Swallowing, Head Aches, Hearing Changes, Sinus Congestion, Sinus Drainage Cardiovascular: Denies: Chest Pain, Orthopnea, Palpitations Respiratory: Denies: Cough, Shortness of breath at rest, Sputum production Gastrointestinal: Denies: Abdominal Pain, Nausea, Vomiting Genitourinary: Denies: Dysuria Musculoskeletal: Denies: Joint Pain, Joint stiffness, Joint swelling, Joint Tenderness Skin: Denies: Rash, Wounds Neurological: Denies: Numbness, Tingling, Focal weakness Vital Signs Vital Signs Vital Signs: 07/28/21 09:25 07/28/21 10:25 07/28/21 11:00 Temperature 96.8 F L Temperature Source Temporal Pulse Rate 98 Respiratory Rate 16 16 16 Blood Pressure 150/105 H Blood Pressure Mean 120 Pulse Ox 97 Oxygen Delivery Method Room Air Weight Weight: 165.561 kg Body Mass Index (BMI) 57.2 Physical Exam Narrative Physical exam: General: Alert, Oriented x3, Cooperative, No apparent distress, Well developed, morbidly obese HEENT: Atraumatic Oral: Moist Mucosa Neck: Supple Lungs: Clear to auscultation Cardiovascular: HS I+II, regular, no murmurs Abdomen: Bowel Sounds Present, Soft, Non Tender Extremities: No edema Skin: No rashes, No breakdown Neurological: Grossly intact Psych/Mental Status: Appropriate Results Lab / Micro Data Result Diagrams: 07/28/21 10:15 07/28/21 10:15 Labs: Laboratory Results - last 24 hr 07/28/21 10:15: WBC 7.4, RBC 5.24, Hgb 15.9 H, Hct 46.0, MCV 87.8, MCH 30.3, MCHC 34.6, RDW Std Deviation 43.4, RDW Coeff of Stacey 13.6, Plt Count 211, MPV 10.4, Immature Gran % (Auto) 0.300, Neut % (Auto) 63.7, Lymph % (Auto) 30.1, [place] % (Auto) 5.1, Eos % (Auto) 0.3, Baso % (Auto) 0.5, Absolute Neuts (auto) 4.7, Absolute Lymphs (auto) 2.24, Nucleated RBC % 0 07/28/21 10:15: Sodium 134 L, Potassium 4.1, Chloride 98, Carbon Dioxide 24.0, Anion Gap 12, BUN 15, Creatinine 1.04 H, Estim Creat Clear Calc 75.52, Est GFR (MDRD) Af Amer 79, Est GFR (MDRD) Non-Af 65, BUN/Creatinine Ratio 14.4, Glucose 126 H, Calcium 8.2 L, Total Bilirubin 0.70, AST 156 H, ALT 212 H, Alkaline Phosphatase 85, Total Protein 7.9, Albumin 3.5, Globulin 4.4 H, Albumin/Globulin Ratio 0.8 L 07/28/21 10:15: Serum , Qual NEGATIVE 07/28/21 10:19: Ethyl Alcohol < 3.0 07/28/21 10:21: Urine Color Yellow, Urine Clarity Sl. Cloudy, Urine pH 6.0, Ur Specific [place] 1.025, Urine Protein 30 H, Urine Glucose (UA) Normal, Urine Ketones 5 H, Urine Occult Blood Negative, Urine Nitrite Negative, Urine Bilirubin Negative, Urine Urobilinogen Normal, Ur Leukocyte Esterase Negative, Urine RBC 0 SEEN, Urine WBC 0 SEEN, Ur Squamous Epith Cells 0-5 SEEN, Urine Bacteria 1+, Urine Mucus 1+ Micro: Microbiology 07/28/21 10:21 Nasal Secretion SARS-CoV-2 Antigen (Rapid) - Final Assessment & Plan Assessment/Plan (1) Alcohol withdrawal: QUALIFIERS: Complication of substance-induced condition: uncomplicated Qualified Code(s): F10.230 - Alcohol dependence with withdrawal, uncomplicated (2) Alcohol abuse: PLAN: 1. Acute alcohol withdrawal in a known alcoholic Patient drinks about a pint of vodka every day [facility], start on phenobarb taper, folic acid, multivitamin, thiamine Continue to monitor therapy withdrawal protocol 2. Nicotine dependence, on replacement, advised to quit 3. Morbid obesity, BMI 50.1, lifestyle modification recommended 4. Hypothyroidism, continue Synthroid 5. Anxiety disorder, continue on BuSpar 6. DVT PPx-low risk; early ambulation recommended Charges/Coding Visit Charges Inpatient E&M: 19611 Init Hosp L3
[2021-07-28] MEDS: Gabapentin 300 MG Capsule PO (13:20)
[2021-07-28] MEDS: 0.9% Normal Saline 1,000 ML 100 ML IV (13:20)
[2021-07-28] MEDS: Ondansetron 8 MG Tablet PO (13:20)
[2021-07-28] MEDS: Phenobarbital 32.4 MG Tablet 64.8 MG PO ×3 (13:28→20:35)
[2021-07-28] MEDS: busPIRone 15 MG TABLET PO ×2 (14:24→20:35)
[2021-07-28] MEDS: Loperamide 2 MG Capsule PO (15:21)
[2021-07-28] MEDS: hydrOXYzine PAM 25 MG Capsule 50 MG PO (18:34)
--- NOTE | 2021-07-28 19:23 | CM.ED ---
CASSANDRA Note Referral Source: SELENA Referral Reason: SELENA TRUJILLO was unable to meet with patient in the ED prior to her admission to acute hospital. However, CASSANDRA reviewed chart and called Treatment Navigator and spoke to Amy. Amy is familiar with patient. CASSANDRA updated that patient presents for alcohol detox and is currently in PCU 118. Plan: Selena LIGHT
[2021-07-28] MEDS: Ferrous Sulfate 325 MG Tablet PO (20:35)
[2021-07-28] MEDS: traZODone 100 MG Tablet PO (20:35)
[2021-07-28] MEDS: Famotidine 20 MG Tablet PO (20:35)
[2021-07-29] MEDS: Phenobarbital 32.4 MG Tablet 64.8 MG PO ×6 (01:49→21:20)
[2021-07-29 01:52] VITALS: BP 118/73; PULSE 80; RESP 18; TEMP 37; O2SAT 98
[2021-07-29] MEDS: busPIRone 15 MG TABLET PO ×3 (04:59→21:20)
[2021-07-29 05:00] VITALS: BP 118/78; PULSE 95; RESP 18; TEMP 36.8; O2SAT 97
[2021-07-29 07:50] VITALS: BP 122/76; PULSE 81; RESP 18; TEMP 37.1; O2SAT 96
[2021-07-29] MEDS: Famotidine 20 MG Tablet PO ×2 (10:03→21:20)
[2021-07-29] MEDS: Thiamine Hydrochloride 100 MG Tablet PO (10:03)
[2021-07-29] MEDS: Folic Acid 1 MG Tablet PO (10:04)
[2021-07-29] MEDS: Ferrous Sulfate 325 MG Tablet PO ×2 (10:04→16:44)
[2021-07-29] MEDS: Thyroid 60 MG Tablet PO (10:04)
[2021-07-29] MEDS: Loperamide 2 MG Capsule PO (13:12)
[2021-07-29 13:15] VITALS: BP 117/80; PULSE 95; RESP 18; TEMP 36.3; O2SAT 97
--- NOTE | 2021-07-29 14:31 | PN.HOSP_ITS ---
Subjective Subjective Follow-up on acute alcohol withdrawal: Patient was seen and examined. Denied any new complaints. No acute events ov ernight Objective Data Objective Data Vital Signs: Vital Signs Temp Pulse Resp BP Pulse Ox 97.4 F L 95 18 117/80 97 07/29/21 13:15 07/29/21 13:15 07/29/21 13:15 07/29/21 13:15 07/29/21 13:15 Oxygen Delivery Method Room Air Weight: 168.311 kg Body Mass Index (BMI) 58.1 Intake & Output: Intake and Output for Last 24 Hours 07/27/21 07/28/21 07/29/21 23:59 23:59 23:59 Intake Total 3600 / 3600 740 / 740 Balance 3600 / 3600 740 / 740 Lab / Micro Data Result Diagrams: 07/28/21 10:15 07/28/21 10:15 Micro: Microbiology 07/28/21 10:21 Nasal Secretion SARS-CoV-2 Antigen (Rapid) - Final Physical Exam Narrative Physical exam: General: Alert, Oriented x3, Cooperative, No apparent distress, Well developed, morbidly obese HEENT: Atraumatic Oral: Moist Mucosa Neck: Supple Lungs: Clear to auscultation Cardiovascular: HS I+II, regular, no murmurs Abdomen: Bowel Sounds Present, Soft, Non Tender Extremities: No edema Skin: No rashes, No breakdown Neurological: Grossly intact Psych/Mental Status: Appropriate Assessment & Plan Assessment/Plan (1) Alcohol withdrawal: QUALIFIERS: Complication of substance-induced condition: uncomplicated Qualified Code(s): F10.230 - Alcohol dependence with withdrawal, uncomplicated (2) Alcohol abuse: PLAN: 1. Acute alcohol withdrawal, improving Continue on phenobarb taper, folic acid, multivitamin, thiamine Continue to monitor therapy withdrawal protocol 2. Nicotine dependence, on replacement, advised to quit 3. Morbid obesity, BMI 50.1, lifestyle modification recommended 4. Hypothyroidism, continue Synthroid 5. Anxiety disorder, continue on BuSpar 6. DVT PPx-low risk; early ambulation recommended Charges/Coding Visit Charges Inpatient E&M: 82753 Subs Hosp L2
[2021-07-29 16:45] VITALS: BP 131/92; PULSE 91; RESP 18; TEMP 36.4; O2SAT 99
[2021-07-29 21:08] VITALS: BP 126/91; PULSE 85; RESP 18; TEMP 36.9; O2SAT 98
[2021-07-29] MEDS: traZODone 100 MG Tablet PO (21:20)
[2021-07-30] MEDS: Phenobarbital 32.4 MG Tablet 64.8 MG PO ×6 (01:04→21:19)
[2021-07-30 04:00] VITALS: BP 126/66; PULSE 86; RESP 16; TEMP 36.8; O2SAT 96
[2021-07-30] MEDS: busPIRone 15 MG TABLET PO ×3 (05:02→21:19)
[2021-07-30 09:00] VITALS: BP 117/61; PULSE 77; RESP 18; TEMP 36.6; O2SAT 95
[2021-07-30] MEDS: Ferrous Sulfate 325 MG Tablet PO ×2 (09:02→16:44)
[2021-07-30] MEDS: Famotidine 20 MG Tablet PO ×2 (09:02→21:19)
[2021-07-30] MEDS: Folic Acid 1 MG Tablet PO (09:03)
[2021-07-30] MEDS: Thiamine Hydrochloride 100 MG Tablet PO (09:03)
[2021-07-30] MEDS: Thyroid 60 MG Tablet PO (09:03)
--- NOTE | 2021-07-30 12:30 | ADDICTION ---
This customs entry writer met with PT to conduct ASAM, MSE, AUDIT assessments and to plan for d/c. PT A+Ox4 and participated actively. All assessments completed and placed in PT's chart. PT plans to f/u with [facility] for follow-up treatment services. [place] will provide transportation post d/c from [facility]. They will pick her up at 11am.
--- NOTE | 2021-07-30 14:20 | ADDICTION ---
Addendum entered by Jennyfer Oneil 07/30/21 14:36: Spoke with mom, she will be bringing pt's belongings. Original Note: This worker attempted to telephone mom x2 to request her to bring clothing for pt's upcoming residential placement. Voicemail box was not set up. Will try again prior to pt's departure.
--- NOTE | 2021-07-30 15:09 | PCM.PN.HOSP ---
Subjective Subjective Follow-up on acute alcohol withdrawal: Patient was seen and examined. Patient complains of hearing voices plan with the family members outside her dog. She admits that these are all due to hallucinations and similar to times when she was undergoing alcohol detox. She stated that she is on Seroquel 100 mg nightly for remote history of psychosis and this has not been resumed during this admission. Objective Data Objective Data Vital Signs: Vital Signs Temp Pulse Resp BP Pulse Ox 97.9 F 77 18 117/61 95 07/30/21 09:00 07/30/21 09:00 07/30/21 09:00 07/30/21 09:00 07/30/21 09:00 Oxygen Delivery Method Room Air Weight: 168.311 kg Body Mass Index (BMI) 58.1 Intake & Output: Intake and Output for Last 24 Hours 07/28/21 07/29/21 07/30/21 23:59 23:59 23:59 Intake Total 3600 / 3600 1540 / 2040 620 / 620 Balance 3600 / 3600 1540 / 2040 620 / 620 Lab / Micro Data Result Diagrams: 07/28/21 10:15 07/28/21 10:15 Micro: Microbiology 07/28/21 10:21 Nasal Secretion SARS-CoV-2 Antigen (Rapid) - Final Physical Exam Narrative Physical exam: General: Alert, Oriented x3, Cooperative, No apparent distress, Well developed, morbidly obese HEENT: Atraumatic Oral: Moist Mucosa Neck: Supple Lungs: Clear to auscultation Cardiovascular: HS I+II, regular, no murmurs Abdomen: Bowel Sounds Present, Soft, Non Tender Extremities: No edema Skin: No rashes, No breakdown Neurological: Grossly intact Psych/Mental Status: Appropriate Assessment & Plan Assessment/Plan (1) Alcohol withdrawal: QUALIFIERS: Complication of substance-induced condition: uncomplicated Qualified Code(s): F10.230 - Alcohol dependence with withdrawal, uncomplicated (2) Alcohol abuse: PLAN: 1. Acute alcohol withdrawal, improving Continue on phenobarb taper, folic acid, multivitamin, thiamine Continue to monitor therapy withdrawal protocol 2. Nicotine dependence, on replacement, advised to quit 3. Morbid obesity, BMI 50.1, lifestyle modification recommended 4. Hypothyroidism, continue Synthroid 5. Anxiety disorder/probable schizophrenia, continue on BuSpar, resume Seroquel 6. DVT PPx-low risk; early ambulation recommended Charges/Coding Visit Charges Inpatient E&M: 73642 Subs Hosp L2
[2021-07-30 16:42] VITALS: BP 127/86; PULSE 76; RESP 18; TEMP 36.8; O2SAT 99
[2021-07-30 21:15] VITALS: BP 141/87; PULSE 95; RESP 18; TEMP 36.8; O2SAT 99
[2021-07-30] MEDS: QUEtiapine 100 MG Tablet PO (21:18)
[2021-07-31 03:00] VITALS: BP 114/75; PULSE 78; RESP 18; TEMP 37.1; O2SAT 98
[2021-07-31] MEDS: Phenobarbital 32.4 MG Tablet 64.8 MG PO ×2 (03:01→09:21)
[2021-07-31] MEDS: busPIRone 15 MG TABLET PO (05:38)
[2021-07-31] MEDS: Folic Acid 1 MG Tablet PO (09:21)
[2021-07-31] MEDS: Famotidine 20 MG Tablet PO (09:21)
[2021-07-31] MEDS: Thyroid 60 MG Tablet PO (09:22)
[2021-07-31] MEDS: Thiamine Hydrochloride 100 MG Tablet PO (09:22)
[2021-07-31] MEDS: Ferrous Sulfate 325 MG Tablet PO (09:22)
--- NOTE | 2021-07-31 09:30 | PCM.DC ---
Discharge Instructions Diet Discharge Diet: No restrictions Activity Discharge Activity: Return to Normal Activity Follow Up Care Test Results: Test results from this visit will be discussed in further detail at your follow-up appointment, if applicable. Discharge Plan Admission Admit Date/Time: 07/28/21 11:50 Primary Reason for Your Visit: Acute alcohol withdrawal Attending Provider: Swetha Child Primary Care Provider: Jony Vásquez Instructions Additional Instructions / Restrictions: You are strongly advised to quit drinking alcohol. Continue with your inpatient drug rehab program. Discharge Orders/Prescriptions Prescriptions: New quetiapine 100 mg Tablet 100 mg PO QHS 30 Days Qty: 30 RF: 0 Continued hydroxyzine pamoate 50 MG capsule 50 mg PO Q8H PRN PRN (Reason: Anxiety) RF: 0 famotidine 20 MG tablet 20 mg PO BID RF: 0 trazodone 100 MG tablet 100 mg PO QHS RF: 0 ferrous sulfate 325 MG tablet 325 mg PO BID RF: 0 buspirone 15 MG tablet 15 mg PO TID RF: 0 thyroid (pork) 60 MG tablet 60 mg PO DAILY RF: 0 Referrals / Follow Up: Jony Vásquez MD [Primary Care Provider] - (within 2 weeks of discharge from inpatient drug rehab) Disposition Disposition (needs filled in before D/C Order can be placed): Home, Self Care
[2021-07-31 09:33] VITALS: BP 123/57; PULSE 89; RESP 16; TEMP 36.9; O2SAT 99
--- NOTE | 2021-07-31 09:34 | DS.PCM_ITS ---
Providers Date of Admission: 07/28/21 Date of Discharge: 07/31/21 Primary Care Physician: Dr. Jony Vásquez MD Reason For Visit: ACUTE ALCOHOL WITHDRAWAL Diagnosis Discharge Diagnosis (1) Alcohol withdrawal: Status: Resolved Code(s): F10.239 - Alcohol dependence with withdrawal, unspecified Qualifiers: Complication of substance-induced condition: uncomplicated Qualified Code(s): F10.230 - Alcohol dependence with withdrawal, uncomplicated (2) Alcohol abuse: Status: Acute Code(s): F10.10 - Alcohol abuse, uncomplicated Medications at Discharge Home Medications buspirone 15 mg PO TID 06/06/20 famotidine 20 mg PO BID 06/06/20 ferrous sulfate 325 mg PO BID 06/06/20 hydroxyzine pamoate 50 mg PO Q8H PRN PRN 06/06/20 thyroid (pork) 60 mg PO DAILY 06/06/20 trazodone 100 mg PO QHS 06/06/20 quetiapine 100 mg PO QHS 30 Days #30 tab 07/31/21 Hospital Course Operations None Procedures None Summary of Care Provided Minutes Spent on Discharge: 40 Hospital Course: 30-year-old female with past medical history of alcohol abuse, who drinks about pint of vodka every day comes in for medical stabilization for acute alcohol withdrawal. [facility] and started on a phenobarbital withdrawal protocol. Patient continued to be stable. She was restarted on her Seroquel for auditory hallucinations during her monitoring state. She was seen by the addiction social work and recommended for discharge to an inpatient drug rehab. On the day of discharge, patient was seen and examined. Denied any new complaint. Physical Exam Narrative Physical exam: General: Alert, Oriented x3, Cooperative, No apparent distress, Well developed, morbidly obese HEENT: Atraumatic Oral: Moist Mucosa Neck: Supple Lungs: Clear to auscultation Cardiovascular: HS I+II, regular, no murmurs Abdomen: Bowel Sounds Present, Soft, Non Tender Extremities: No edema Skin: No rashes, No breakdown Neurological: Grossly intact Psych/Mental Status: Appropriate Weight / BMI Weight Weight: 168.311 kg Body Mass Index (BMI) 58.1 ABG / Lab / Microbiology Data Result Diagrams: 07/28/21 10:15 07/28/21 10:15 Microbiology: Microbiology 07/28/21 10:21 Nasal Secretion SARS-CoV-2 Antigen (Rapid) - Final D/C Instructions Discharge Diet: No restrictions Meaningful Use Info Meaningful Use Diagnoses (Choose all that apply): None applicable Discharge Plan Admission Admit Date/Time: 07/28/21 11:50 Primary Reason for Your Visit: Acute alcohol withdrawal Attending Provider: Swetha Child Primary Care Provider: Jony Vásquez Instructions Additional Instructions / Restrictions: You are strongly advised to quit drinking alcohol. Continue with your inpatient drug rehab program. Discharge Orders/Prescriptions Prescriptions: New quetiapine 100 mg Tablet 100 mg PO QHS 30 Days Qty: 30 RF: 0 Continued hydroxyzine pamoate 50 MG capsule 50 mg PO Q8H PRN PRN (Reason: Anxiety) RF: 0 famotidine 20 MG tablet 20 mg PO BID RF: 0 trazodone 100 MG tablet 100 mg PO QHS RF: 0 ferrous sulfate 325 MG tablet 325 mg PO BID RF: 0 buspirone 15 MG tablet 15 mg PO TID RF: 0 thyroid (pork) 60 MG tablet 60 mg PO DAILY RF: 0 Referrals / Follow Up: Jony Vásquez MD [Primary Care Provider] - (within 2 weeks of discharge from inpatient drug rehab) Disposition Disposition (needs filled in before D/C Order can be placed): Home, Self Care Charges/Coding Visit Charges Inpatient E&M: 10484 Disch Hosp
== END 2021-07-31 11:28 | disposition home or self-care (01) | DRG 775 ==
LOC: ED 12:01 → PCU 12:31
PROVIDERS: Admitting Provider Internal Medicine; Emergency Provider Emergency Medicine; PCP Family Medicine; Visit Provider Internal Medicine
DX: F10.130 Alcohol abuse with withdrawal, uncomplicated (principal); Z68.43 Body mass index [BMI] 50.0-59.9, adult; F31.9 Bipolar disorder, unspecified; E66.01 Morbid (severe) obesity due to excess calories; F20.9 Schizophrenia, unspecified; F17.210 Nicotine dependence, cigarettes, uncomplicated; E03.9 Hypothyroidism, unspecified; F41.9 Anxiety disorder, unspecified; Z79.899 Other long term (current) drug therapy
CPT/HCPCS: 80053; 81001; 82077; 84703; 85025; 87426; 97802; 99284; 99406; J7030; A4216; J2405

== ENCOUNTER 2022-02-23 15:26 | Inpatient (IN) | payer MEDICAID, SELFPAY ==
[2022-02-23 15:28] VITALS: BP 110/88; PULSE 88; RESP 14; TEMP 36.8; O2SAT 97; BMI 52.9
--- NOTE | 2022-02-23 15:41 | EX.ED.SAOD ---
HPI History of Present Illness Chief Complaint: ETOH Intox Detail of Chief Complaint: Detox from alcohol Informant: patient Onset/Context/Timing Onset: Yesterday Context: Gradual Onset Timing: Continuous Worsened by: Nothing Relieved by: Nothing Associated Symptoms Associated Symptoms: Positive for tremor; Negative for vomiting*, diarrhea*, fever*, rash*, seizure, palpatations, change in mental status, trauma, suicidal ideation or homicidal ideation Narrative Narrative: Patient presents requesting detox from alcohol. Patient states she drinks approximately 750 mL bottle of hard liquor per day. Patient states her last drink was last night. Patient states she has been through detox here in the past. Patient states her last detox was in July. Patient admits to some tremors. Patient denies any nausea, vomiting, or diarrhea. Patient denies any palpitations. Patient denies any seizures. Patient admits to a cough but denies any shortness of breath. Patient states she has a tightness in her right upper quadrant. Patient states she feels like her liver feels swollen. [facility] Medical History (Updated 02/23/22 @ 15:[address] Derik Marte, ) Anxiety Bipolar disorder Depression Hypercholesterolemia Hypothyroidism PTSD (post-traumatic stress disorder) Home Medications buspirone 15 mg tablet 15 mg PO TID mood 06/06/20 [History Last Taken 06/05/20] famotidine 20 mg tablet 20 mg PO BID gerd 06/06/20 [History Last Taken 06/05/20] ferrous sulfate 325 mg (65 mg iron) tablet 325 mg PO BID supplement 06/06/20 [History Last Taken 06/05/20] hydroxyzine pamoate 50 mg capsule 50 mg PO Q8H PRN PRN Anxiety 06/06/20 [History Last Taken 06/05/20] thyroid (pork) 60 mg tablet 60 mg PO DAILY thyroid 06/06/20 [History Last Taken 06/04/20] trazodone 100 mg tablet 100 mg PO QHS sleep 06/06/20 [History Last Taken 06/05/20] quetiapine 100 mg tablet 100 mg PO QHS 30 days #30 tabs 07/31/21 [Rx Last Taken Unknown] Allergy/AdvReac Type Severity Reaction Status Date / Time divalproex sodium Allergy Rash Verified 02/23/22 15:27 [From Depakote] meloxicam Allergy Rash Verified 02/23/22 15:27 Family History Grandfather Heart disease Father Diabetes Mother Diabetes Surgical History Hx of tonsillectomy Social History Smoking Status: Current every day smoker tobacco type: cigarettes ROS ROS ED Constitutional Constitutional ED: Denies chills or fever(s) Eyes Eyes: Denies blurry vision or change in vision ENT ENT ED: Denies rhinorrhea or sore throat Cardiovascular Cardiovascular: Denies chest pain or palpitations Respiratory/Chest Respiratory/Chest: Reports cough; Denies dyspnea Gastrointestinal Gastrointestinal: Reports abdominal pain; Denies nausea or vomiting Genitourinary Genitourinary ED: Denies dysuria or hematuria Musculoskeletal Musculoskeletal: Denies back pain or neck pain Integumentary Denies abscess or rash Neurologic Neurologic: Denies headache(s) or weakness Allergic/Immunologic Allergic/Immunologic ED: Denies mouth swelling or urticaria EXAM Physical Exam Const Vital Signs: 02/23/22 15:28 Temperature 98.3 F Temperature Source Temporal Pulse Rate 88 Respiratory Rate 14 Blood Pressure 110/88 H Blood Pressure Mean 95 Pulse Ox 97 Oxygen Delivery Method Room Air Positive well nourished, well developed and obese General Appearance ED: well developed and NAD Nutritional Appearance: obese HEENT Reports moist mucous membranes Neck supple and no JVD Resp normal respiratory effort and clear to auscultation bilaterally Cardio regular rate, regular rhythm and no murmurs GI normal to inspection, nondistended, normoactive bowel sounds and non-tender Palpation: soft Extremity normal to inspection General Extremety ED: Negative for edema or tenderness General Extremity: Negative for edema Neuro oriented x3, CN's II-XII intact bilaterally and no sensory deficits noted Sensorium / Orientation: alert Motor Exam: strength 5/5 throughout Psych mental status grossly normal Skin no rashes or lesions noted MDM MDM MDM Narrative Medical decision making narrative: Basic labs were obtained. Case was discussed with the hospitalist. He will admit the patient to his service. Patient understands and is agreeable with the plan. All questions were answered. Discharge Plan Triage Chief Complaint: ETOH Intox ED Provider: Derik Marte Dx/Rx/DC Orders Clinical Impression: Alcohol withdrawal, Alcohol abuse, Morbid obesity with BMI of 50.0-59.9, adult Prescriptions: No Action hydroxyzine pamoate 50 MG capsule 50 mg PO Q8H PRN PRN (Reason: Anxiety) famotidine 20 MG tablet 20 mg PO BID trazodone 100 MG tablet 100 mg PO QHS ferrous sulfate 325 MG tablet 325 mg PO BID buspirone 15 MG tablet 15 mg PO TID thyroid (pork) 60 MG tablet 60 mg PO DAILY quetiapine 100 mg Tablet 100 mg PO QHS 30 Days Qty: 30 0RF Primary Care Provider: Sheila Duke NP Referrals: Jony Vásquez MD [Non-Staff] - Disposition Disposition: Acute Care Hospital [facility]
[2022-02-23 15:55] VITALS: BP 110/88; PULSE 88; RESP 14; TEMP 36.8; O2SAT 97
--- NOTE | 2022-02-23 15:59 | NURSING ---
MED SURG JOPPERI ALCOHOL WITHDRAWAL
--- NOTE | 2022-02-23 16:06 | CM.ED ---
CASSANDRA Note Referral Source: [facility] Case Find SW met with patient. She reports she is wanting admission to the [facility] program. Patient reports she wants alcohol detox. Last use of alcohol was last night and she used 750ml. Patient is aware of the rules of the program including no outside food, no outside visitors, no phones and all belongings locked. Patient inquired about her Bible. SW will f/u with addiction therapist. CASSANDRA called Good, addiction therapist, and updated her regarding patient being admitted to [facility] program. CASSANDRA inquired about Bible and if patient can have it. Good said that the Bible needs to be searched thoroughly but after it is searched she can have it. CASSANDRA updated SHOLA Schmid and patient. Plan:[facility] program [facility] LIGHT
[2022-02-23 16:08] LABS: Absolute Lymphocyte Count 2.52 X10^3/uL (0.83-4.51); Absolute Neutrophil Count 7.8 X10^3/uL (2.0-7.7); Basophil# 0.04 X10^3/uL; Basophil% 0.4 % (0-1); Eosinophil# 0.11 X10^3/uL; Hematocrit 40.5 % (37-47); Hemoglobin 13.4 g/dL (12.0-15.0); Lymphocyte # 2.52 X10^3/ul (0.83-4.51); Lymphocyte % 22.7 % (19-41); Mean Corp Hgb Conc 33.1 g/dL (32-36); Mean Corpuscular Hgb 31.5 pg (27.0-32.0); Mean Corpuscular Volume 95.1 fL (81-99); Mean Platelet Vol. 10.5 fl (6.2-12.0); Monocyte# 0.61 X10^3/uL; Monocyte% 5.5 % (0-10); NRBC Flagged by Analyzer 0 % (0-5); Neutrophil # 7.77 X10^3/uL (2.7-7.7); Neutrophil % 69.9 % (47-70); Platelet Count 294 K/mm3 (150-450); RBC Distribution Width CV 15.9 % (11.6-14.6); RBC Distribution Width SD 54.9 fl (35.1-43.9); Red Blood Count 4.26 M/mm3 (4.2-5.4); White Blood Count 11.1 K/mm3 (4.4-11.0)
--- NOTE | 2022-02-23 16:17 | PCM.HP.STD ---
HPI - General General Date of Service: 02/23/22 Chief Complaint: Requested alcohol withdrawal HPI Narrative ELOY LOW, is a 31 F who presents presents seeking treatment for alcohol withdrawal. Patient is recent been paroled and is been strongly encouraged by law enforcement to go into treatment. Patient last drink was this morning. Patient drinks roughly a bottle of hard alcohol daily. Since her last drink, patient has slight tremulousness. She sometimes gets diarrhea going through alcohol withdrawal but has not experienced that yet. [facility] Medical History Anxiety Bipolar disorder Depression Hypercholesterolemia Hypothyroidism PTSD (post-traumatic stress disorder) Home Medications buspirone 15 mg tablet 15 mg PO TID mood 06/06/20 [History Last Taken 06/05/20] famotidine 20 mg tablet 20 mg PO BID gerd 06/06/20 [History Last Taken 06/05/20] ferrous sulfate 325 mg (65 mg iron) tablet 325 mg PO BID supplement 06/06/20 [History Last Taken 06/05/20] hydroxyzine pamoate 50 mg capsule 50 mg PO Q8H PRN PRN Anxiety 06/06/20 [History Last Taken 06/05/20] thyroid (pork) 60 mg tablet 60 mg PO DAILY thyroid 06/06/20 [History Last Taken 06/04/20] trazodone 100 mg tablet 100 mg PO QHS sleep 06/06/20 [History Last Taken 06/05/20] quetiapine 100 mg tablet 100 mg PO QHS 30 days #30 tabs 07/31/21 [Rx Last Taken Unknown] atorvastatin 20 mg tablet 20 mg PO DAILY 02/23/22 [History Last Taken Unknown] lamotrigine 25 mg tablet mg 02/23/22 [History Last Taken Unknown] Allergy/AdvReac Type Severity Reaction Status Date / Time divalproex sodium Allergy Rash Verified 02/23/22 15:27 [From Depakote] meloxicam Allergy Rash Verified 02/23/22 15:27 Family History Grandfather Heart disease Father Diabetes Mother Diabetes Surgical History Hx of tonsillectomy Social History Smoking Status: Current every day smoker tobacco type: cigarettes ROS ROS Narrative All review of systems were negative except as mentioned above in the history of present illness and the other review of systems. Vital Signs Vital Signs Vital Signs: 02/23/22 15:28 02/23/22 15:55 Temperature 36.8 C 36.8 C Temperature Source Temporal Temporal Pulse Rate 88 88 Respiratory Rate 14 14 Blood Pressure 110/88 H 110/88 H Blood Pressure Mean 95 95 Pulse Ox 97 97 Oxygen Delivery Method Room Air Room Air Weight Weight: 153.2 kg Body Mass Index (BMI) 52.9 Physical Exam Const alert and no apparent distress Resp normal respiratory effort, no retractions, no use of accessory muscles and clear to auscultation bilaterally Cardio regular rate, regular rhythm, S1 normal heart sound and S2 normal heart sound GI normal to inspection, nondistended, normoactive bowel sounds, soft to palpation, non-tender and non-distended Extremity normal to inspection Neuro Neuro Narrative: Slight tremulousness Psych affect normal Results Lab / Micro Data Result Diagrams: 02/23/22 15:53 02/23/22 15:53 Labs: Laboratory Results - last 24 hr 02/23/22 15:53: WBC 11.1 H, RBC 4.26, Hgb 13.4, Hct 40.5, MCV 95.1, MCH 31.5, MCHC 33.1, RDW Std Deviation 54.9 H, RDW Coeff of Stacey 15.9 H, Plt Count 294, MPV 10.5, Immature Gran % (Auto) 0.500, Neut % (Auto) 69.9, Lymph % (Auto) 22.7, Esmeralda % (Auto) 5.5, Eos % (Auto) 1.0, Baso % (Auto) 0.4, Absolute Neuts (auto) 7.8 H, Absolute Lymphs (auto) 2.52, Nucleated RBC % 0 Assessment & Plan Assessment/Plan (1) Alcohol withdrawal: PLAN: Currently stable this time. Plan is to initiate a phenobarbital taper as well as as needed medication to help with other somatic complaints associated withdrawal. Addiction medicine to see her and to facilitate outpatient program. Patient is leaning towards a residential program. PLAN: Plan Chronic conditions Morbid obesity: BMI 52.9 Hypothyroidism: Patient is on pork thyroid extract Hyperlipidemia: Continue with statin VTE prophylaxis not indicated as patient is low risk. Charges/Coding Visit Charges Inpatient E&M: 87694 Init Hosp L2
[2022-02-23 16:21] LABS: Bacteria 0 SEEN /hpf (None Seen); Mucous, Urine 0 SEEN /hpf (<or=2+); Red Blood Cells-Urine 0 SEEN /hpf (0-5); Squamous Epithelial Cells - UA 0 SEEN /hpf (5-10); White Blood Cells 0 SEEN /hpf (0-5)
[2022-02-23 16:29] LABS: ALB/GLOB Ratio 0.7 RATIO (0.9-2.4); AST(SGOT) 10 U/L (15-37); Alanine Aminotransfer ALT/SGPT 23 U/L (13-56); Albumin, Serum 3.4 g/dL (3.2-5.0); Alkaline Phosphatase 75 U/L (45-117); Anion Gap 6 (5-15); BUN 15 mg/dL (7-18); BUN/Creat Ratio 17.5 RATIO (10-20); Calcium,Total 9.4 mg/dL (8.5-10.1); Chloride 107 mmol/L (98-107); Creatinine, Serum 0.86 mg/dL (0.55-1.02); EST Glomerular Filtration Rate 81 mL/min (>60); Est Glom Filt Rate - Afr Amer 98 mL/min (>60); Estimated Creatinine Clearance 90.48 ml/min; Globulin 4.6 g/dL (2.2-4.2); Glucose 104 mg/dL (74-106); Lipase 104 U/L (73-393); Sodium Level 140 mmol/L (136-145)
[2022-02-23 16:31] LABS: Color, Urine Yellow (Yellow); Glucose, Dipstick Normal (Normal); Ketone-Dipstick 5 mg/dl (Negative); Leukocyte Esterase-Dipstick 25 /ul (Negative); Nitrite-Dipstick Negative (Negative); Occult Blood-Urine Negative /ul (Negative); Protein-Dipstick 15 mg/dl (Negative); Specific Gravity, Urine 1.025 (1.002-1.030); Urine Bilirubin Dipstick Negative (Negative); Urine Clarity Sl. Cloudy (Clear); Urine Urobilinogen 1 mg/dl (Normal)
[2022-02-23 16:41] LABS: Amphetamine Urine VISTA NEGATIVE (<1000 ng/mL); Barbiturate Urine VISTA NEGATIVE (< 200 ng/mL); Benzodiazepine Urine VISTA NEGATIVE (< 200 ng/mL); Cocaine Urine VISTA NEGATIVE (< 300 ng/mL); Ecstacy Urine VISTA POSITIVE (< 500 ng/mL); Methadone Urine VISTA NEGATIVE (< 300 ng/mL); PCP Urine VISTA NEGATIVE (< 25 ng/mL); THC Urine VISTA NEGATIVE (< 50 ng/mL); Vista UDS pH Range 6
[2022-02-23 16:46] LABS: Alcohol, Blood (Medical)-Serum < 3.0 mg/dL
[2022-02-23 16:49] LABS: Internal QC Validated? YES +Cl - CLEAR BKGD; Pregnancy, Serum, hCG Quali. NEGATIVE Negative
[2022-02-23 16:56] VITALS: BMI 53.0
[2022-02-23 17:00] VITALS: BP 117/71; PULSE 78; RESP 16; TEMP 36.3; O2SAT 98
[2022-02-23] MEDS: Phenobarbital 32.4 MG Tablet 64.8 MG PO ×2 (17:29→21:55)
[2022-02-23] MEDS: Ibuprofen 600 MG Tablet PO (17:45)
[2022-02-23] MEDS: Gabapentin 300 MG Capsule PO (19:38)
[2022-02-23 21:50] VITALS: BP 112/67; PULSE 83; RESP 16; TEMP 36.7; O2SAT 96
[2022-02-23] MEDS: 0.9% Saline Lock 10 ML Syringe IV (21:54)
[2022-02-23] MEDS: Atorvastatin Calcium 20 MG Tablet PO (21:55)
[2022-02-23] MEDS: traZODone 100 MG Tablet PO (21:55)
[2022-02-23] MEDS: busPIRone 15 MG TABLET PO (21:55)
[2022-02-23] MEDS: Famotidine 20 MG Tablet PO (21:55)
[2022-02-24 00:53] VITALS: BP 105/51; PULSE 82; RESP 18; TEMP 36.6; O2SAT 98
[2022-02-24] MEDS: Phenobarbital 32.4 MG Tablet 64.8 MG PO ×6 (00:55→21:21)
[2022-02-24 06:29] VITALS: BP 110/53; PULSE 76; RESP 18; TEMP 36.3; O2SAT 94
[2022-02-24] MEDS: busPIRone 15 MG TABLET PO ×3 (06:35→21:21)
[2022-02-24] MEDS: Thyroid 60 MG Tablet PO (06:35)
[2022-02-24 08:26] VITALS: BP 114/70; PULSE 73; RESP 14; TEMP 36.4; O2SAT 100
[2022-02-24] MEDS: Folic Acid 1 MG Tablet PO (08:46)
[2022-02-24] MEDS: Thiamine Hydrochloride 100 MG Tablet PO (08:46)
[2022-02-24] MEDS: Famotidine 20 MG Tablet PO ×2 (08:51→21:21)
[2022-02-24] MEDS: Dicyclomine 10 MG Capsule 20 MG PO ×2 (08:54→18:51)
[2022-02-24] MEDS: FLU VACC QS2022-23(6MOS UP)/PF 60 MCG/0.5 ML SYRINGE IM (10:12)
--- NOTE | 2022-02-24 11:32 | ADDICTION ---
This telegraphic typewriter repairer met with PT to conduct ASAM, MSE, AUDIT, DUDIT assessments and to plan for d/c. PT A+Ox4 and participated actively. All assessments completed and placed in PT's chart. PT plans to f/u withresidenital treatment services. This worker sent a referral to [facility]. Approval is pending.
[2022-02-24] MEDS: Ferrous Sulfate 325 MG Tablet PO ×2 (12:01→18:48)
[2022-02-24] MEDS: Ibuprofen 600 MG Tablet PO ×2 (13:30→23:20)
[2022-02-24] MEDS: Gabapentin 300 MG Capsule PO (13:31)
[2022-02-24 13:56] VITALS: BP 114/65; PULSE 83; RESP 18; TEMP 36.9; O2SAT 95
--- NOTE | 2022-02-24 15:45 | CHAPLAIN ---
Type of Pastoral Visit _x__ Initial Visit ___ Follow-up Visit ___ On-call Visit ___ General Patient Visit ___ Spiritual Assessment ___ Family Conference ___ Bereavement ___ Rapid Response ___ Code Blue ___ Other (describe below) Pastoral Care Referral From __x_ Patient ___ Family ___ Nurse ___ Physician ___ Visiting Housekeeper ___ Middleware Administrator ___ Other (describe below) Sacrament/Intervention __x_ Active listening ___ Anointing ___ Yarsanism ___ Bereavement ___ Communion ___ Sonia exploration ___ _x__ Life review ___ Prayer ___ Reconciliation ___ Sacrament of Sick _x__ Supportive presence ___ Wedding ___ Other (describe below) Pastoral Comments patient greets this biodiesel product manager with some enthusiasm; pt states openly about her addiction and need to be in recovery; pt admits to questions about her spiritual perspective and that she is going to need to figure this out more for herself; pt says that otherwise she is not needing anything at this time but expressed thanks for the offer
--- NOTE | 2022-02-24 18:26 | PN.HOSP_ITS ---
Subjective Subjective Patient was seen and examined today, she does not complain of any anxiety or tremors, patient states she is considering doing an inpatient detox program when she leaves the hospital here. Patient's chronic medical problems include chronic depression, hyperlipidemia, and hypothyroidism. Objective Data Objective Data Vital Signs: Vital Signs Temp Pulse Resp BP Pulse Ox O2 Del Method 98.5 F 83 18 114/65 95 Room Air 02/24/22 13:56 02/24/22 13:56 02/24/22 13:56 02/24/22 13:56 02/24/22 13:56 02/24/22 13:56 Oxygen Delivery Method Room Air Weight: 153.6 kg Body Mass Index (BMI) 53.0 Intake & Output: Intake and Output for Last 24 Hours 02/22/22 02/23/22 02/24/22 23:59 23:59 23:59 Intake Total 800 / 800 600 / 600 Output Total 900 / 900 Balance 800 / 800 -300 / -300 Lab / Micro Data Result Diagrams: 02/23/22 15:53 02/23/22 15:53 Physical Exam Const alert, oriented x3 and no apparent distress Constitutional Narrative: Patient is morbidly obese General Appearance: cooperative, well kempt and well developed Orientation / Consciousness: awake, oriented to person, oriented to place and oriented to time HEENT normocephalic, head/scalp atraumatic and moist oral mucous membranes Eyes PERRL, EOMs intact bilaterally and conjunctivae normal Neck supple, no JVD, thyroid normal and no carotid bruits General: trachea midline Resp normal respiratory effort, no retractions, no use of accessory muscles and clear to auscultation bilaterally Auscultation: Negative for rales, rhonchi or wheezes Cardio regular rate, regular rhythm, S1 normal heart sound, S2 normal heart sound, no murmurs, no rub and no gallops GI normal to inspection, nondistended, normoactive bowel sounds, soft to palpation, non-tender and non-distended Extremity no clubbing, cyanosis or edema Skin no rashes or lesions noted General Skin Exam: no breakdown Neuro oriented x3, CN's II-XII intact bilaterally, no focal motor deficits and no sensory deficits noted Sensorium / Orientation: awake and alert Speech: speech normal Psych affect normal Assessment & Plan Assessment/Plan (1) Alcohol withdrawal: PLAN: Plan 1. Acute alcohol withdrawal-again patient is minimally symptomatic at this time , she will continue on a phenobarb taper #2 chronic alcoholism-complicates care, management, recovery, and prognosis #3 morbid obesity-complicates care, management, recovery, and prognosis #4 hyperlipidemia-patient is on a statin #5 chronic depression-patient will remain on her present medication-she states at one time she was diagnosed as having bipolar disorder but another psychiatrist said that she did not have this disorder-it was only chronic depression. #6 hypothyroidism-patient will remain on thyroid supplementation Charges/Coding Visit Charges Inpatient E&M: 65568 Subs Hosp L2
--- NOTE | 2022-02-24 19:26 | NURSING ---
Pt is requesting that Seroquel be discontinues. Pt states she no longer takes this med at home. This RN talked with Dr. Smallwood about pt's wishes. Order given to discontinue seroquel.
[2022-02-24 21:14] VITALS: BP 131/67; PULSE 78; RESP 16; TEMP 36.6; O2SAT 98
[2022-02-24] MEDS: 0.9% Saline Lock 10 ML Syringe IV (21:20)
[2022-02-24] MEDS: traZODone 100 MG Tablet PO (21:21)
[2022-02-24] MEDS: Atorvastatin Calcium 20 MG Tablet PO (21:22)
[2022-02-24] MEDS: hydrOXYzine PAM 25 MG Capsule 50 MG PO (23:20)
[2022-02-25] MEDS: Phenobarbital 32.4 MG Tablet 64.8 MG PO ×5 (02:18→20:25)
[2022-02-25 05:54] VITALS: BP 103/67; PULSE 73; RESP 18; TEMP 36.4; O2SAT 98
[2022-02-25] MEDS: busPIRone 15 MG TABLET PO ×3 (05:57→20:24)
[2022-02-25] MEDS: Thyroid 60 MG Tablet PO (05:57)
[2022-02-25 08:37] VITALS: BP 101/59; PULSE 76; RESP 16; TEMP 36.6; O2SAT 97
[2022-02-25] MEDS: Folic Acid 1 MG Tablet PO (08:38)
[2022-02-25] MEDS: Famotidine 20 MG Tablet PO ×2 (08:38→20:25)
[2022-02-25] MEDS: Thiamine Hydrochloride 100 MG Tablet PO (08:38)
[2022-02-25] MEDS: Ferrous Sulfate 325 MG Tablet PO (11:32)
[2022-02-25] MEDS: Pantoprazole Sodium 40 MG Tablet PO (11:32)
[2022-02-25] MEDS: Ibuprofen 600 MG Tablet PO (12:15)
[2022-02-25 14:29] VITALS: BP 117/71; PULSE 86; RESP 18; TEMP 36.6; O2SAT 94
[2022-02-25] MEDS: Acetaminophen 500 MG Tablet PO (14:32)
--- NOTE | 2022-02-25 16:59 | PN.HOSP_ITS ---
Subjective Subjective Patient was seen and examined today, again she is planning on going into an inpatient detox program when she was released in the hospital. Patient does not complain of any tremors or anxiety today. Objective Data Objective Data Vital Signs: Vital Signs Temp Pulse Resp BP Pulse Ox O2 Del Method 97.8 F 86 18 117/71 94 Room Air 02/25/22 14:29 02/25/22 14:29 02/25/22 14:29 02/25/22 14:29 02/25/22 14:29 02/25/22 14:29 Oxygen Delivery Method Room Air Weight: 153.6 kg Body Mass Index (BMI) 53.0 Intake & Output: Intake and Output for Last 24 Hours 02/23/22 02/24/22 02/25/22 23:59 23:59 23:59 Intake Total 800 / 800 1450 / 1450 1000 / 1000 Output Total 900 / 900 Balance 800 / 800 550 / 550 1000 / 1000 Lab / Micro Data Result Diagrams: 02/23/22 15:53 02/23/22 15:53 Physical Exam Const alert, oriented x3 and no apparent distress Constitutional Narrative: Patient is morbidly obese General Appearance: cooperative, well kempt and well developed Orientation / Consciousness: awake, oriented to person, oriented to place and o riented to time HEENT normocephalic, head/scalp atraumatic and moist oral mucous membranes Eyes PERRL, EOMs intact bilaterally and conjunctivae normal Neck supple, no JVD, thyroid normal and no carotid bruits General: trachea midline Resp normal respiratory effort, no retractions, no use of accessory muscles and clear to auscultation bilaterally Auscultation: Negative for rales, rhonchi or wheezes Cardio regular rate, regular rhythm, S1 normal heart sound, S2 normal heart sound, no murmurs, no rub and no gallops GI normal to inspection, nondistended, normoactive bowel sounds, soft to palpation, non-tender and non-distended Extremity no clubbing, cyanosis or edema Skin no rashes or lesions noted General Skin Exam: no breakdown Neuro oriented x3, CN's II-XII intact bilaterally, no focal motor deficits and no sensory deficits noted Sensorium / Orientation: awake and alert Speech: speech normal Psych affect normal Assessment & Plan Assessment/Plan (1) Alcohol withdrawal: PLAN: Plan 1. Acute alcohol withdrawal-again patient is minimally symptomatic at this time, she will continue on a phenobarb taper, patient may be able to go to an inpatient detox unit tomorrow if he can be set up. #2 chronic alcoholism-complicates care, management, recovery, and prognosis #3 morbid obesity-complicates care, management, recovery, and prognosis #4 hyperlipidemia-patient is on a statin #5 chronic depression-patient will remain on her present medication-she states at one time she was diagnosed as having bipolar disorder but another p sychiatrist said that she did not have this disorder-it was only chronic depression. #6 hypothyroidism-patient will remain on thyroid supplementation Charges/Coding Visit Charges Inpatient E&M: 21753 Subs Hosp L2
[2022-02-25 20:15] VITALS: BP 115/76; PULSE 95; RESP 18; TEMP 36.8; O2SAT 96
[2022-02-25] MEDS: traZODone 100 MG Tablet PO (20:24)
[2022-02-25] MEDS: Atorvastatin Calcium 20 MG Tablet PO (20:25)
[2022-02-25] MEDS: hydrOXYzine PAM 25 MG Capsule 50 MG PO (20:26)
[2022-02-26 02:11] VITALS: BP 110/67; PULSE 79; RESP 14; TEMP 36.7; O2SAT 100
[2022-02-26] MEDS: Phenobarbital 32.4 MG Tablet 64.8 MG PO ×2 (02:14→08:21)
[2022-02-26] MEDS: Thyroid 60 MG Tablet PO (06:32)
[2022-02-26] MEDS: busPIRone 15 MG TABLET PO (06:32)
[2022-02-26] MEDS: Ibuprofen 600 MG Tablet PO (06:34)
[2022-02-26 08:15] VITALS: BP 113/79; PULSE 88; RESP 18; TEMP 36.6; O2SAT 96
[2022-02-26] MEDS: Thiamine Hydrochloride 100 MG Tablet PO (08:22)
[2022-02-26] MEDS: Folic Acid 1 MG Tablet PO (08:22)
[2022-02-26] MEDS: Famotidine 20 MG Tablet PO (08:23)
[2022-02-26] MEDS: Pantoprazole Sodium 40 MG Tablet PO (08:23)
--- NOTE | 2022-02-26 09:45 | DCINST_ITS ---
Discharge Instructions Diet Discharge Diet: No restrictions Activity Discharge Activity: Return to Normal Activity Weight Bearing Status: Full weight bearing Follow Up Care Test Results: Test results from this visit will be discussed in further detail at your follow- up appointment, if applicable. Discharge Plan Admission Admit Date/Time: 02/23/22 16:15 Primary Reason for Your Visit: alcohol detox Attending Provider: Evan Fleming Primary Care Provider: Sheila Duke NP Consulting Providers: Derik Schrader Discharge Orders/Prescriptions Prescriptions: Continued hydroxyzine pamoate 50 MG capsule 50 mg PO Q8H PRN PRN (Reason: Anxiety) famotidine 20 MG tablet 20 mg PO BID trazodone 100 MG tablet 100 mg PO QHS ferrous sulfate 325 MG tablet 325 mg PO BID buspirone 15 MG tablet 15 mg PO TID thyroid (pork) 60 MG tablet 60 mg PO DAILY atorvastatin 20 mg tablet 20 mg PO DAILY lamotrigine 25 mg tablet 25 mg PO DAILY pantoprazole 40 mg Tablet,Delayed Release (Dr/Ec) 40 mg PO DAILY Referrals / Follow Up: Jony Vásquez MD [Non-Staff] - Sheila Duke NP, SITE DAMAGE PREVENTION TECHNICIAN-C [Primary Care Provider] - Disposition Disposition (needs filled in before D/C Order can be placed): Inpatient Rehab Unit/Facility
--- NOTE | 2022-02-26 09:57 | PCM.DC.SUM ---
Providers Date of Admission: 02/23/22 Date of Discharge: 02/26/22 Primary Care Physician: MAC Puente Reason For Visit: ALCOHOL WITHDRAWAL Diagnosis Discharge Diagnosis (1) Alcohol withdrawal: Status: Acute Code(s): F10.939 - Alcohol use, unspecified with withdrawal, unspecified Plan 1. Acute alcohol withdrawal-again patient is minimally symptomatic at this time, she will continue on a phenobarb taper, patient may be able to go to an inpatient detox unit tomorrow if he can be set up. #2 chronic alcoholism-complicates care, management, recovery, and prognosis #3 morbid obesity-complicates care, management, recovery, and prognosis #4 hyperlipidemia-patient is on a statin #5 chronic depression-patient will remain on her present medication-she states at one time she was diagnosed as having bipolar disorder but another psychiatrist said that she did not have this disorder-it was only chronic depression. #6 hypothyroidism-patient will remain on thyroid supplementation #7 MDMA abuse Medications at Discharge Home Medications buspirone 15 mg tablet 15 mg PO TID mood 06/06/20 famotidine 20 mg tablet 20 mg PO BID gerd 06/06/20 ferrous sulfate 325 mg (65 mg iron) tablet 325 mg PO BID supplement 06/06/20 hydroxyzine pamoate 50 mg capsule 50 mg PO Q8H PRN PRN Anxiety 06/06/20 thyroid (pork) 60 mg tablet 60 mg PO DAILY thyroid 06/06/20 trazodone 100 mg tablet 100 mg PO QHS sleep 06/06/20 atorvastatin 20 mg tablet 20 mg PO DAILY cholesterol 02/23/22 lamotrigine 25 mg tablet 25 mg PO DAILY mood 02/23/22 pantoprazole 40 mg tablet,delayed release 40 mg PO DAILY gerd 02/25/22 Hospital Course Operations None Procedures None Summary of Care Provided Minutes Spent on Discharge: 32 Hospital Course: This 31-year-old white female was seen in the emergency room at [facility] requesting services for alcohol detox. Toxicology was positive for MDMA, ethyl alcohol level was below 3. White blood cell count was slightly elevated, chemistry panel was unremarkable. Patient was admitted to [place] [id number], orders were entered using the alcohol detox order set and patient was placed on a tapering dose of phenobarbital. Patient was seen in consultation by addiction psychiatric social worker supervisor, she agreed to go into an inpatient detox program at the time of discharge from the hospital. Patient had no signs of DTs during her hospital stay and there were no untoward events associated with the patient's hospital stay. On 02/26/2022, patient was seen and examined: On examination she appeared in good health and spirits, she does not appear to be in any distress. Patient is morbidly obese. Vital signs as documented. Skin warm and dry and without overt rashes. Neck without JVD, thyroid appears normal, trachea is midline, neck is supple. Lungs clear, normal air movement was noted. Heart exam notable for regular rhythm, normal sounds and absence of murmurs, rubs or gallops. Abdomen unremarkable and without evidence of organomegaly, masses, or abdominal aortic enlargement, bowel sounds are present in all 4 quadrants, no abdominal tenderness was noted. Extremities nonedematous, no cyanosis was noted, no clubbing was noted. Neuro: Cranial nerves II through XII are grossly intact, no focal motor deficits were noted, sensation to light touch and pinprick is intact, motor exam 5/5 throughout. Psych: Patient is alert and oriented x3, she does not appear anxious or depressed, she does not appear agitated. On 02/26/2022, patient was discharged to an inpatient alcohol detox facility in stable condition. Weight / BMI Weight Weight: 153.6 kg Body Mass Index (BMI) 53.0 ABG / Lab / Microbiology Data Result Diagrams: 02/23/22 15:53 02/23/22 15:53 D/C Instructions Discharge Diet: No restrictions Weight Bearing Status: Full weight bearing Meaningful Use Info Meaningful Use Diagnoses (Choose all that apply): None applicable Discharge Plan Admission Admit Date/Time: 02/23/22 16:15 Primary Reason for Your Visit: alcohol detox Attending Provider: Evan Fleming Primary Care Provider: Sheila Duke NP Consulting Providers: Derik Schrader Discharge Orders/Prescriptions Prescriptions: Continued hydroxyzine pamoate 50 MG capsule 50 mg PO Q8H PRN PRN (Reason: Anxiety) famotidine 20 MG tablet 20 mg PO BID trazodone 100 MG tablet 100 mg PO QHS ferrous sulfate 325 MG tablet 325 mg PO BID buspirone 15 MG tablet 15 mg PO TID thyroid (pork) 60 MG tablet 60 mg PO DAILY atorvastatin 20 mg tablet 20 mg PO DAILY lamotrigine 25 mg tablet 25 mg PO DAILY pantoprazole 40 mg Tablet,Delayed Release (Dr/Ec) 40 mg PO DAILY Referrals / Follow Up: Jony Vásquez MD [Non-Staff] - Sheila Duke NP, [facility] [Primary Care Provider] - Disposition Disposition (needs filled in before D/C Order can be placed): Inpatient Rehab Unit/Facility Charges/Coding Visit Charges Inpatient E&M: 27198 Disch Hosp
== END 2022-02-26 10:06 | DRG 775 ==
LOC: ED 15:56 → MS3 16:35
PROVIDERS: Emergency Provider Emergency Medicine; PCP Nurse Practitioner Family; Visit Provider Internal Medicine
DX: F10.239 Alcohol dependence with withdrawal, unspecified (principal); Z68.43 Body mass index [BMI] 50.0-59.9, adult; F31.9 Bipolar disorder, unspecified; E66.01 Morbid (severe) obesity due to excess calories; F16.10 Hallucinogen abuse, uncomplicated; E03.9 Hypothyroidism, unspecified; E78.5 Hyperlipidemia, unspecified; F41.9 Anxiety disorder, unspecified; F17.210 Nicotine dependence, cigarettes, uncomplicated; F43.10 Post-traumatic stress disorder, unspecified; Z79.899 Other long term (current) drug therapy; Z23 Encounter for immunization
CPT/HCPCS: 80053; 80307; 81001; 82077; 83690; 84703; 85025; 99284; 90686; A4216

== ENCOUNTER 2024-03-18 15:38 | Inpatient (IN) | payer MEDICAID, SELFPAY ==
[2024-03-18 15:39] VITALS: BP 144/96; PULSE 99; RESP 18; TEMP 36.6; O2SAT 98; BMI 54.3
--- OUTSIDE RECORDS SUMMARY | 2024-03-18 17:15 | XMS RPT_ITS | CCD ---
Author Organization [facility] Care Team Providers Care Java Front End Web Developer Name Role Phone Michelle Fam Unavailable Unavailable SarwatMichelle Unavailable Unavailable Jony Martell Unavailable Unavailable JASBIR FREEMAN, JONY Primary Care Physician [phone] Jony Martell MD Primary Care Provider Jony Martell MD Primary Care Provider Jony Martell MD Primary Care Provider JONY MARTELL MD Referring Unavailable JONY MARTELL MD Consulting Unavailable TAMMEI KRISHNAMURTHY Attending Unavailable TAMMIE KRISHNAMURTHY Primary Care Unavailable TAMMIE KRISHNAMURTHY Admitting Unavailable PROVIDER, UNKNOWN Consulting Unavailable URSULA BE Attending Unavailable JONY MARTELL Primary Care Unavailable URSULA BE Referring Unavailable JONY MARTELL Primary Care Unavailable URSULA BE Attending Unavailable JONY MARTELL Primary Care Unavailable JONY MARTELL Primary Care Unavailable ALBERTA EDWARD Attending Unavailable URSULA BE Referring Unavailable JONY MARTELL Primary Care Unavailable ANGELA CRAWFORD Attending Unavail able URSULA BE Referring Unavailable JONY MARTELL Primary Care Unavailable JONY MARTELL Primary Care Unavailable MANUELA PEARCE Attending Unavailable JONY MARTELL Primary Care Unavailable Allergies Allergy Classification Reported Allergen(s) Allergy Type Date of Onset Reaction(s) Facility Nicotine (1 source) Nicotine Drug Allergy 06-29-2018 Unknown, Rash [facility] NSAIDs (1 source) meloxicam Drug Allergy 10-16-2015 Itching [facility] Valproate (1 source) Valproate Drug Allergy 11-19-2014 Rash [facility] (20 sources) meloxicam; Translations: [meloxicam] Drug [facility] nicotine; Translations: [facility]ate; Translations: [facility] Valproate; Translations: [DIVALPROEX] Drug Allergy 11-19-2014 [facility] (16 sources) Nicotine; Translations: [NICOTINE] Drug Allergy 06-29-2018 Unknown, [facility] Medications Current Medications Medication Drug Class(es) Dates Sig (Normalized) Sig (Original) ARIPiprazole 10 mg oral tablet (2 sources) Atypical Antipsychotic Start: 03-13-2024 ARIPiprazole (ABILIFY) 10 mg tablet 03/13/2024 Active Start: 10-17-2020 ARIPiprazole 3 0 mg oral tablet Dose : 30 mg = 1 tab(s), Oral, qDay, # 30 tab(s), 0 Refill(s) Start Date: 10/17/20 Status: Ordered atomoxetine 40 mg oral capsule (16 sources) Norepinephrine Reuptake Inhibitor Start: 02-21-2024 take 1 capsule by mouth once atomoxetine (STRATTERA) 40 mg capsule Take 1 capsule by mouth every afternoon. 02/21/2024 Active Start: 06-22-2022 End: 09-06-2023 take 1 capsule by mouth once daily atomoxetine (STRATTERA) 25 mg capsule Take 1 capsule by mouth once daily. 0 06/22/2022 09/06/2023 Discontinued (Other) Comment on above: Take 1 capsule by mo [facility] once daily. 24 hr buPROPion hydrochloride 300 mg extended release oral tablet (20 sources) Aminoketone Start: take 1 tablet by mouth once daily buPROPion XL (WELLBUTRIN XL) 300 mg 24 hr tablet Take 1 tablet by mouth once daily. 03/24/2022 Active Comment on above: Take 1 tablet by екатерина once daily. busPIRone hydrochloride 30 mg oral tablet (20 sources) Start: busPIRone HCl 30 mg tablet 03/13/2024 Active Start: 07-15-2021 take 1 tablet by екатерина th three times daily busPIRone (BUSPAR) 15 mg tablet Take 1 tablet by mouth three times daily. 90 tablet 5 07/15/2021 Active Start: 10-17-2020 busPIRone 15 m g oral tablet Dose : 15 mg = 1 tab(s), Oral, TID, # 90 tab(s), 0 Refill(s) Start Date: 10/17/20 Status: Ordered Comment on above: Take 1 tablet by [facility] three times daily. celecoxib 200 mg oral capsule (13 sources) Nonsteroidal Anti-inflammatory Drug Start: 024 take 1 capsule by mouth once daily celecoxib (CELEBREX) 200 mg capsule Indications: Polyarthralgia Take 1 capsule by mouth once daily. 30 capsule 5 09/06/2023 Active Comment on above: Take 1 capsule by mo [facility] once daily. cholecalciferol 0.05 mg oral capsule (20 sources) Vitamin D Start: 022 take 1 capsule by mouth once daily Cholecalciferol, Vitamin D3, 50 mcg (2,000 unit) cap Indications: Vitamin D deficiency Take 1 capsule by mouth once daily. 30 capsule 5 05/11/2022 Active Start: 05-07-2022 End: 05-11-2022 take 1 capsule by mouth once daily Cholecalciferol, Vitamin D3, 25 mcg (1,000 unit) cap Indications: Vitamin D deficiency Take 1 capsule by mouth once daily. 90 capsule 1 05/07/2022 05/11/2022 Discontinued (Dosage adjustment) Comment on above: Take 1 capsule by [facility] once daily. citalopram 40 mg oral tablet (1 source) Serotonin Reuptake Inhibitor Start: 6 take 1 dose by mouth once daily CeleXA Dose : 40 mg =, Oral, qDay, 0 Refill(s) Start Date: 05/31/15 Status: Ordered cloNIDine hydrochloride 0.1 mg oral tablet (1 source) Central alpha-2 Adrenergic Agonist Start: 4 cloNIDine HCl (CATAPRES) 0.1 mg tablet 03/13/2024 Active gabapentin 300 mg oral capsule (20 sources) Anti-epileptic Agent Start: 3 take 1 capsule by mouth twice daily gabapentin (NEURONTIN) 300 mg capsule Take 1 capsule by mouth twice daily. 06/03/2022 Active Start: 05-03-2022 End: 05-03-2023 take 1 capsule by mouth three times daily gabapentin (NEURONTIN) 100 mg capsule Take 1 capsule by mouth three times daily. 0 05/03/2022 07/01/2022 Discontinued (Dosage adjustment) Comment on above: Take 1 capsule by mo ut three times daily. Take 1 capsule by mo uth twice daily. hydrOXYzine pamoate 50 mg oral capsule (1 source) Antihistamine Start: 1 take 1 capsule by mouth four times daily as needed for anxiety hydrOXYzine pamoate 50 mg oral capsule See Instructions, PRN for anxiety, 1 cap(s) Oral QID, 0 Refill(s) Start Date: 10/17/20 Status: Ordered lamoTRIgine 25 mg oral tablet (20 sources) Mood Stabilizer, Anti-epileptic Agent Start: 4 take 8 tablets by mouth once daily at bedtime lamoTRIgine (LAMICTAL) 25 mg tablet Take 8 tablets by mouth daily at bedtime. 09/06/2023 Active Start: 05-03-2022 End: 09-06-2023 take 3 tablets by mouth once daily at bedtime lamoTRIgine (LAMICTAL) 25 mg tablet Take 3 tablets by mouth daily at bedtime. 0 05/03/2022 09/06/2023 Discontinued Start: 03-24-2022 End: 05-03-2022 take 1 tablet by mouth twice daily lamoTRIgine (LAMICTAL) 25 mg tablet Take 1 tablet by mouth twice daily. 0 03/24/2022 05/03/2022 Discontinued Comment on above: [facility] Take 3 tablets by mo ut daily at bedtime. Take 8 tablets by mo [facility] daily at bedtime. lisdexamfetamine dimesylate 50 mg oral capsule (20 sources) Central Nervous System Stimulant Start: 4 take 1 capsule by mouth once VYVANSE 50 mg capsule Take 1 capsule by mouth every afternoon. 03/06/2024 Active Start: 01-03-2023 End: 03-13-2024 VYVANSE 30 mg capsule 202203/13/2024 Discontinued Start: 01-03-2023 End: 03-13-2024 VYVANSE 40 mg capsule 202203/13/2024 Discontinued loteprednol etabonate 2 mg/ml ophthalmic suspension (1 source) Start: 01-20-2023 End: 01-30-2023 take 1 drop(s) into the eye(s) four times daily Loteprednol Etabonate (ALREX) 0.2 % drps Use 1 Drop in the right eye four times daily for 10 days. 10 mL 0 01/20/2023 01/30/2023 Active Comment on above: Use 1 Drop in the ri ght eye four times daily for 10 days. metFORMIN hydrochloride 500 mg oral tablet (13 sources) Biguanide Start: 09-26-2023 take 1 tablet by mouth once daily at breakfast metFORMIN (GLUCOPHAGE) 500 mg tablet Indications: Prediabetes Take 1 tablet by mouth daily with breakfast. 30 tablet 5 09/26/2023 Active Start: 09-23-2023 End: 09-26-2023 take 1 tablet by mouth once daily at breakfast metFORMIN ER (FORTAMET) 500 mg 24 hr tablet Indications: Prediabetes Take 1 tablet by mouth daily with breakfast. 30 tablet 5 09/23/2023 09/26/2023 Discontinued (Not on Formulary) mirtazapine 7.5 mg oral tablet (2 sources) Start: 03-10-2024 Mirtazapine (REMERON) 7.5 mg tablet 03/10/2024 Active [facility] Medication (1 source) Start: 05-31-2015 [facility] Medicatio n 0 Refill(s) Start Date: 05/31/15 Status: Ordered naltrexone hydrochloride 50 mg oral tablet (20 sources) Opioid Antagonist Start: 07-07-2023 take 1 tablet by mouth once naltrexone 50 mg tablet Take 1 tablet by mouth every afternoon. 07/07/2023 Active Start: 04-10-2022 End: 09-06-2023 VIVITROL 380 mg injection 38 0 mg once every month. 0 04/10/2022 09/06/2023 Discontinued (Other) Start: 04-10-2022 VIVITROL 380 m g injection Comment on above: 380 mg once every mo nth. Take 1 tablet by екатерина th every afternoon. ondansetron 4 mg disintegrating oral tablet (5 sources) Serotonin-3 Receptor Antagonist Start: take 1 tablet by mouth every eight hours as needed for nausea and nausea ondansetron orally disintegrating (ZOFRAN ODT) 4 mg disintegrating tablet Indications: Nausea Take 1 tablet by mouth every 8 hours as needed for nausea/vomiting. 12 tablet 03/08/2024 Active pantoprazole 40 mg delayed release oral tablet (20 sources) Proton Pump Inhibitor Start: End: take 1 tablet by mouth once daily before breakfast pantoprazole DR (PROTONIX) 40 mg tablet Take 1 tablet by mouth daily before breakfast. Take on empty stomach, 1/2 hr before meal. 30 tablet 5 03/14/2023 Active Comment on above: Take 1 tablet by екатерина th daily before breakfast. Take on empty stomach, 1/2 hr before meal. polymyxin b [id number] unt/ml / trimethoprim 1 mg/ml ophthalmic solution (2 sources) Dihydrofolate Reductase Inhibitor Antibacterial, Polymyxin-class Antibacterial Start: End: take 1 drop(s) into the eye(s) four times daily trimethoprim-polymyxi n (POLYTRIM) 10,000 unit- 1 mg/mL ophthalmic solution Use 1 Drop in the right eye four times daily for 7 days. 1.4 mL 0 04/15/2023 04/22/2023 Active Start: 01-20-2023 End: 01-30-2023 take 1 drop(s) into the eye(s) four times daily trimethoprim-polymyxin (POLYTRIM) 10,000 unit- 1 mg/mL ophthalmic solution Use 1 Drop in the right eye four times daily for 10 days. 10 mL 0 01/20/2023 01/30/2023 Active Comment on above: Use 1 Drop in the ri ght eye four times daily for 10 days. Use 1 Drop in the ri ght eye four times daily for 7 days. prazosin 2 mg oral capsule (1 source) alpha-Adrenergic Mendez Start: 10-17-2020 prazosin 2 mg oral capsule Dose : 2 mg = 1 cap(s), Oral, qHS, 0 Refill(s) Start Date: 10/17/20 Status: Ordered predniSONE 10 mg oral tablet (2 sources) Start: 11-22-2023 End: 12-04-2023 predniSONE (DELTASONE) 10 mg tablet Take 4 tabs daily x 3 days, then 3 tabs x 3 days, 2 tabs x 3 days, then 1 tab x3 days with food. 30 tablet 0 11/22/2023 12/04/2023 Active Start: 10-08-2022 End: 10-20-2022 predniSONE (DELTASONE) 10 mg tablet Take 4 tabs daily x 3 days, then 3 tabs x 3 days, 2 tabs x 3 days, then 1 tab x3 days with food. 30 tablet 0 10/08/2022 10/20/2022 Active Comment on above: Take 4 tabs daily x 3 days, then 3 tabs x 3 days, 2 tabs x 3 days, then 1 tab x3 days with food. thyroid (halfway) 60 mg oral tablet (20 sources) Start: 03-14-2023 take 1 tablet by mouth once daily thyroid, pork, (ARMOUR THYROID) 60 mg tablet Take 1 tablet by mouth once daily. 30 tablet 5 03/14/2023 Active Start: 03-14-2023 take 1 tablet by екатерина th once daily thyroid (ARMOUR THYROID) 15 mg tablet Indications: Acquired hypothyroidism Take 1 tablet by mouth once daily. Take with 60 mg dose for total daily dose of 75 mg. 30 tablet 5 03/14/2023 Active Start: 05-11-2022 End: 08-15-2022 take 1 tablet by mouth once daily thyroid (ARMOUR THYROID) 15 mg tablet Indications: Acquired hypothyroidism Take 1 tablet by mouth once daily. Take with 60 mg dose for total daily dose of 75 mg. 30 tablet 5 08/16/2022 Active Start: 07-15-2021 End: 08-15-2022 take 1 tablet by mouth once daily thyroid, pork, (ARMOUR THYROID) 60 mg tablet Take 1 tablet by mouth once daily. 30 tablet 5 08/16/2022 Active Start: 10-17-2020 [facility] Thyroid 60 mg oral tablet Dose : 60 mg = 1 tab(s), Oral, qAM, # 90 tab(s), 0 Refill(s) Start Date: 10/17/20 Status: Ordered Comment on above: Take 1 tablet by екатерина th once daily. Take 1 tablet by екатерина th once daily. Take with 60 mg dose for total daily dose of 75 mg. Completed/Discontinued Medications Medication Drug Class(es) Dates Sig (Normalized) Sig (Original) [id number] 200 actuat albuterol 0.09 mg/actuat metered dose inhaler (1 source) beta2-Adrenergic Agonist Start: 05-20-2021 End: 03-24-2022 take 2 puff(s) by inhalation every six hours as needed for wheezing albuterol HFA (PROVENTIL HFA, VENTOLIN HFA) 90 mcg/actuation inhaler Inhale 2 Puffs as instructed every 6 hours as needed for wheezing/shortness of breath. 1 Each 0 05/20/2021 03/24/2022 Discontinued (Other) Comment on above: Inhale 2 Puffs as in structed every 6 hours as needed for wheezing/shortness of breath. amphetamine aspartate 2.5 mg / amphetamine sulfate 2.5 mg / dextroamphetamine saccharate 2.5 mg / dextroamphetamine sulfate 2.5 mg oral tablet (7 sources) Central Nervous System Stimulant Start: 08-05-2023 End: 03-13-2024 take 1 tablet by mouth once daily dextroamphetamine- amphetamine (ADDERALL) 10 mg tablet TAKE 1 TABLET BY MOUTH ONCE DAILY IN THE AFTERNOON 08/05/2023 03/13/2024 Discontinued ciprofloxacin 3 mg/ml ophthalmic solution (1 source) Quinolone Antimicrobial Start: 12-09-2022 End: 01-20-2023 take 1-2 drop(s) into the eye(s) every two hours ciprofloxacin HCl (CILOXAN) 0.3 % ophthalmic solution instill 1 to 2 drops INTO AFFECTED EYE(S) every 2 hours while sally... (REFER TO PRESCRIPTION NOTES). 0 12/09/2022 01/20/2023 Discontinued (Course of therapy completed) Comment on above: instill 1 to 2 drops INTO AFFECTED EYE(S) every 2 hours while sally... (REFER TO PRESCRIPTION NOTES). ciprofloxacin 3 mg/ml / dexamethasone 1 mg/ml otic suspension (11 sources) Corticosteroid, Quinolone Antimicrobial Start: 09-06-2023 End: 03-13-2024 ciprofloxacin-dexA METHasone (CIPRODEX) 0.3-0.1 % otic suspension Use 4 Drops in the right ear two times a day. 7.5 mL 09/06/2023 03/13/2024 Discontinued Comment on above: Use 4 Drops in the r ight ear two times a day. famotidine 20 mg oral tablet (2 sources) Histamine-2 Receptor Antagonist Start: 07-15-2021 End: 03-24-2022 take 1 tablet by mouth twice daily famotidine (PEPCID) 20 mg tablet Indications: GERD without esophagitis Take 1 tablet by mouth twice daily. 60 tablet 5 07/15/2021 03/24/2022 Discontinued (Other) Start: 10-17-2020 famotidine 20 mg oral tablet Dose : 20 mg = 1 tab(s), Oral, BID, # 60 tab(s), 0 Refill(s) Start Date: 10/17/20 Status: Ordered Comment on above: Take 1 tablet by екатерина twice daily. ferrous sulfate 325 mg oral tablet (2 sources) Start: 07-15-2021 End: 03-24-2022 take 1 tablet by mouth twice daily ferrous sulfate 325 mg (65 mg iron) tablet Indications: Anemia, unspecified type Take 1 tablet by mouth twice daily. 60 tablet 5 07/15/2021 03/24/2022 Discontinued (Other) Start: 10-17-2020 ferrous sulfat e 325 mg (65 mg elemental iron) oral tablet Dose : 325 mg = 1 tab(s), Oral, BID, # 90 tab(s), 0 Refill(s) Start Date: 10/17/20 Status: Ordered Comment on above: Take 1 tablet by екатерина twice daily. naproxen 500 mg oral tablet (16 sources) Nonsteroidal Anti-inflammatory Drug Start: End: take 1 tablet by mouth twice daily at mealtime naproxen (NAPROSYN) 500 mg tablet Indications: Polyarthralgia Take 1 tablet by mouth twice daily. Take with food. 60 tablet 1 05/03/2022 09/06/2023 Discontinued (Other) Comment on above: Take 1 tablet by екатерина twice daily. Take with food. Take 1 tablet by екатерина twice daily as needed (for pain/inflammation). Take with food. propranolol hydrochloride 20 mg oral tablet (20 sources) beta-Adrenergic Mendez Start: End: take 1 tablet by mouth twice daily propranolol (INDERAL) 20 mg tablet Indications: Panic disorder without agoraphobia , Hypertension, essential Take 1 tablet by mouth twice daily. 60 tablet 1 03/24/2022 03/13/2024 Discontinued Comment on above: Take 1 tablet by екатерина twice daily. QUEtiapine 100 mg oral tablet (2 sources) Atypical Antipsychotic Start: End: take 1 tablet by mouth once daily at bedtime QUEtiapine (SEROQUEL) 100 mg tablet Indications: Mood disorder (HCC) , Bipolar I disorder, most recent episode (or current) depressed, severe, specified as with psychotic behavior (HCC) Take 1 tablet by mouth daily at bedtime. 30 tablet 5 07/15/2021 03/24/2022 Discontinued (Other) Start: 10-17-2020 QUEtiapine 100 mg oral tablet Dose : 100 mg = 1 tab(s), Oral, qHS, # 90 tab(s), 0 Refill(s) Start Date: 10/17/20 Status: Ordered Comment on above: Take 1 tablet by екатерина th daily at bedtime. semaglutide, weight loss, (WEGOVY) 0.25 mg/0.5 mL pen injector (8 sources) Start: End: inject 0.5 mL by subcutaneous injection every week semaglutide, weight loss, (WEGOVY) 0.25 mg/0.5 mL pen injector Indications: Morbid obesity with BMI of 50.0-59.9, adult (HCC) Inject 0.5 mL subcutaneously one time a week. 4 Each 11/15/2023 03/13/2024 Discontinued Start: 11-15-2023 inject 0.5 mL by sub cutaneous injection every week semaglutide, weight loss, (WEGOVY) 0.25 mg/0.5 mL pen injector Indications: Morbid obesity with BMI of 50.0-59.9, adult (HCC) Inject 0.5 mL subcutaneously one time a week. 4 Each 11/15/2023 Active Start: 11-15-2023 inject 0.5 mL by sub cutaneous injection every week semaglutide, weight loss, (WEGOVY) 0.25 mg/0.5 mL pen injector Indications: Morbid obesity with BMI of 50.0-59.9, adult (HCC) Inject 0.5 mL subcutaneously one time a week. 4 Each 0 11/15/2023 Active traZODone hydrochloride 100 mg oral tablet (2 sources) Serotonin Reuptake Inhibitor Start: 07-15-2021 End: 03-24-2022 take 1 tablet by mouth once daily at bedtime traZODone (DESYREL) 100 mg tablet Take 1 tablet by mouth daily at bedtime. 30 tablet 5 07/15/2021 03/24/2022 Discontinued (Other) Start: 10-17-2020 traZODone 100 mg oral tablet Dose : 100 mg = 1 tab(s), Oral, qHS Start Date: 10/17/20 Status: Ordered Comment on above: Take 1 tablet by екатерина th daily at bedtime. Problems Active Problems Problem Classification Problem Date Documented Da te Episodic/Chronic Alcohol-related disorders (1 source) Alcohol dependence; Translations: [Alcohol dependence, in remission] Chronic Anxiety disorders (20 sources) Panic disorder without agoraphobia; Translations: [Panic disorder [episodic paroxysmal anxiety]] Onset: 5 Chronic Deficiency and other anemia (2 sources) Anemia; Translations: [Anemia, unspecified] Episodic Disorders of lipid metabolism (1 source) Hypercholesterolemia; Translations: [Pure hypercholesterolemia, unspecified] 03-13-2024 Chronic Esophageal disorders (2 sources) Gastroesophageal reflux disease; Translations: [Gastro-esophageal reflux disease without esophagitis] Onset: 4 09-06-2023 Chronic Essential hypertension (2 sources) Essential hypertension; Translations: [Essential (primary) hypertension] Chronic Immunizations and screening for infectious disease (8 sources) Patient encounter status; Translations: [Encounter for immunization] 09-06-2023 Episodic Inflammation; infection of eye (except that caused by tuberculosis or sexually transmitteddisease) (1 source) Acute conjunctivitis of right eye; Translations: [Unspecified acute conjunctivitis, right eye] 04-15-2023 Episodic Malaise and fatigue (1 source) Malaise and fatigue; Translations: [Other malaise] 03-13-2024 Episodic Mood disorders (20 sources) Bipolar I disorder; Translations: [Depressive disorder] Onset: 5 05-31-2015 Chronic Nausea and vomiting (1 source) Nausea; Translations: [Nausea] 03-08-2024 Episodic Nutritional deficiencies (4 sources) Vitamin D deficiency; Translations: [Vitamin D deficiency, unspecified] Onset: 4 Chronic Other circulatory disease (1 source) Elevated blood-pressure reading without diagnosis of hypertension; Translations: [Elevated blood-pressure reading, without diagnosis of hypertension] 03-13-2024 Episodic Other complications of (13 sources) Anemia during - baby not yet delivered; Translations: [Anemia complicating , third trimester] Onset: 9 11-28-2018 Chronic Other eye disorders (1 source) Marginal corneal ulcer of right eye; Translations: [Marginal corneal ulcer, right eye] 01-20-2023 Episodic Other eye disorders (1 source) Meibomian gland dysfunction of bilateral eyes; Translations: [Meibomian gland dysfunction right eye, upper and lower eyelids] 01-20-2023 Episodic Other gastrointestinal disorders (1 source) Diarrhea; Translations: [Diarrhea, unspecified] 03-08-2024 Episodic Other hematologic conditions (1 source) ESR raised; Translations: [Elevated erythrocyte sedimentation rate] 09-06-2023 Episodic Other nervous system disorders (1 source) Bilateral carpal tunnel syndrome; Translations: [Carpal tunnel syndrome, bilateral upper limbs] Chronic Other nervous system disorders (1 source) Paresthesia of hand ; Translations: [Anesthesia of skin] Episodic Other non-traumatic joint disorders (4 sources) Multiple joint pain; Translations: [Pain in unspecified joint] Episodic Other non-traumatic joint disorders (1 source) Hip pain; Translations: [Pain in left hip] Episodic Other nutritional; endocrine; and metabolic disorders (20 sources) Obesity; Translations: [Obesity, unspecified] Onset: 5 01-17-2015 Chronic Other nutritional; endocrine; and metabolic disorders (20 sources) Body mass index 40+ - severely obese; Translations: [Morbid (severe) obesity due to excess calories] Onset: 0 06-09-2019 Chronic Other nutritional; endocrine; and metabolic disorders (2 sources) Severe obesity; Translations: [Morbid (severe) obesity due to excess calories] Chronic Other nutritional; endocrine; and metabolic disorders (1 source) Morbid (severe) obesity due to excess calories; Translations: [Morbid obesity with BMI of 50.0-59.9, adult ([facility])] Onset: 4 Chronic Other nutritional; endocrine; and metabolic disorders (1 source) Body mass index (BMI) 50.0-59.9, adult; Translations: [Morbid obesity with BMI of 50.0-59.9, adult ([facility])] Onset: Chronic Other screening for suspected conditions (not mental disorders or infectious disease) (1 source) Cancer cervix screening status; Translations: [Encounter for screening for malignant neoplasm of cervix] 11-22-2023 Episodic Other upper respiratory infections (1 source) Acute upper respiratory infection; Translations: [Acute upper respiratory infection, unspecified] 03-17-2024 Episodic Residual codes; unclassified (20 sources) Obstructive sleep apnea syndrome; Translations: [Obstructive sleep apnea (adult) (pediatric)] Onset: 6 02-23-2016 Chronic Substance-related disorders (20 sources) Substance abuse; Translations: [Other psychoactive substance abuse, uncomplicated] Onset: 9 01-11-2019 Chronic Thyroid disorders (20 sources) Acquired hypothyroidism; Translations: [Hypothyroidism, unspecified] Onset: 6 04-07-2016 Chronic Thyroid disorders (1 source) Disorder of thyroid gland 05-31-2015 Episodic Unclassified (1 source) OPENED IN ERROR Past or Other Problems Problem Classification Problem Date Documented Date Episodic/Chronic Contraceptive and procreative management (20 sources) Sterilization requested; Translations: [Encounter for sterilization] Onset: 11-21-2018 11-21-2018 Episodic Deficiency and other anemia (1 source) Anemia, unspecified; Translations: [Anemia, unspecified type] Onset: 09-21-2023 Episodic Diabetes mellitus without complication (6 sources) Prediabetes; Translations: [Prediabetes] Onset: 09-21-2023 Episodic Diabetes or abnormal glucose tolerance complicating ; childbirth; or the puerperium (20 sources) Abnormal glucose level; Translations: [Abnormal glucose complicating ] Onset: 11-28-2018 Resolved: 11-22-2023 11-28-2018 Episodic Other complications of (15 sources) Anemia of ; Translations: [Anemia complicating , third trimester] Onset: 11-28-2018 Resolved: 11-22-2023 11-28-2018 Chronic Other complications of (20 sources) Maternal tobacco use; Translations: [Smoking (tobacco) complicating , first trimester] Onset: 06-01-2018 Resolved: 11-22-2023 06-01-2018 Episodic Other complications of (12 sources) Excessive growth affecting management of mother; Translations: [Maternal care for excessive growth, unspecified trimester, not applicable or unspecified] Onset: 12-09-2018 Resolved: 01-11-2019 01-11-2019 Episodic Other female genital disorders (20 sources) H/O: miscarriage; Translations: [Recurrent loss] Onset: 06-01-2018 06-01-2018 Episodic Other female genital disorders (5 sources) Recurrent loss; Translations: [Recurrent loss without current ] Onset: 06-01-2018 06-01-2018 Episodic Other hematologic conditions (1 source) Elevated erythrocyte sedimentation rate; Translations: [Elevated sed rate] Onset: 09-21-2023 Episodic Other non-traumatic joint disorders (1 source) Pain in unspecified joint; Translations: [Polyarthralgia] Onset: 09-21-2023 Episodic Polyhydramnios and other problems of amniotic cavity (20 sources) Polyhydramnios; Translations: [Polyhydramnios, third trimester, not applicable or unspecified] Onset: 12-09-2018 Resolved: 11-22-2023 01-04-2019 Episodic Spondylosis; intervertebral disc disorders; other back problems (20 sources) Backache; Translations: [Dorsalgia, unspecified] Onset: 11-27-2014 11-27-2014 Episodic Substance-related disorders (20 sources) Maternal drug use; Translations: [Drug use complicating , first trimester] Onset: 06-01-2018 Resolved: 11-22-2023 06-01-2018 Episodic Results Test Name Value Interpretation Reference Range Facility [facility] 03-14-2024 [facility] Office Visit (TINO ) SWATHI WAHL ([id number]) 1990 F Date Time Provider Department 03/14/24 9:40 AM ALBERTA EDWARD During your visit today, we recorded the following information about you: Pulse Blood pressure Weight 66/minute 132/74 156 kg Alberta Edward MD 03/14/2024 10:34 AM Signed [facility] Out[facility] Date of Service: 03/14/2024 Patient: Swathi Wahl Medical Record: [id number] Primary Care Physician: Jony Martell MD Referring Provider: Ursula Be [address] [facility] [place] [address] Last Rheumatology visit: None at [facility] Chief complaint: New Patient Consultation requested by Ursula Be APRN.CNP for an opinion regarding polyarthralgia. My final recommendations will be communicated back to the requesting physician by way of shared Medical record or letter to requesting physician via US mail. History of Present Illness Swathi Wahl is a 33 year old White female with medical history of anxiety, anemia, depression, hypothyroidism, bipolar disorder, history of recurrent miscarriages(6), bilateral carpal tunnel syndrome (EMG/NCV 07/2022 ), history of meth and heroin addiction presents on 03/14/2024 for an in-person visit for evaluation of New Patient. She is currently taking celecoxib. Swathi is both RF - 9 (05/05/2022) and CCP - 13.5 (05/05/2022) negative. Her most recent MAYLIN was negative (05/05/2022). 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 08/2023 Sed rate 29 CRP 1.4 Vitamin D 30 CBC unremarkable TSH normal 04/2022 RF/CCP negative MAYLIN negative Sed rate 38 CRP 2.8 CBC unremarkable CMP unremarkable Radiograph bilateral knees 09/2015-unremarkable Radiograph lumbar spine 01/2015-unremarkable Patient-Entered Data PAIN EVALUATION 03/14/2024 0700 Pain Level: 3 Pain Location: -- low back and hips Description: Aching Duration Units: Years Frequency: Continuous PROMIS Assessments 02/23/2016 PROMIS Assessments Physical Health Percentile 22 Mental Health Percentile 34 Pain Score 3 RAPID 3 Cruz Activities of Daily Living No Data Dress self? - Get in and out of bed? - Walk outdoors? - Wash and dry body? - Get in and out of car? - RAPID 3 Disease Activity Weighed Score Levels: 0 - 1: Near Remission 1.3 - 2.0: Low Severity 2.3 - 4.0: Moderate Severity 4.3 - 10.0: High Severity No data to display Review of Systems ROS RHEUMATOLOGY Fever: Denies Change in weight: Denies Lymphadenopathy: Denies Mucosal ulcers: Denies Skin rash: Denies Photosensitive rash: Denies Alopecia: Denies Chest Pain: Denies Dyspnea: Denies Cough : Denies Difficulty swallowing: Denies Nausea/vomiting: Denies Heartburn: Denies Abdominal Pain: Denies Diarrhea/constipation :Denies Blood in stool : Denies Dysuria/hematuria: Denies Muscle pain: Denies Muscle weakness: Denies Numbness: Bilateral hands Headache: Denies change in vision: Denies Raynaud's: Denies Sicca: Dry eyes Past Medical History 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 In [facility] program. 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 Hypothyroidism Mood disorder (HCC) bipolar 1 Past Surgical History PAST SURGICAL HISTORY Procedure Laterality Date TONSILLECTOMY HX age 18 Allergy ALLERGIES Allergen Reactions Depakote [Divalproe* Rash Meloxicam Itching Nicotine Unknown, Rash Family History Mother has fibromyalgia, UCTD FAMILY HISTORY Problem Relation Age of Onset Diabetes Father Glaucoma Mother Diabetes Mother Kidney Disease Mother Stroke Mother Thyroid Mother hypo Heart Brother Cancer Maternal Grandmother Alcohol/Drug Paternal Grandmother Heart Paternal Grandfather Alcohol/Drug Paternal Aunt Alcohol/Drug Paternal Uncle Breast Cancer Other 2nd cousins Breast Cancer Other 2nd cousins Cervical Cancer Other 2nd cousins Cervical Cancer Other 2nd cousins Cervical Cancer Other 2nd cousins Social History Social History Tobacco Us (more content not included)... Normal [facility] CNOVon 03-13-2024 CNOV Office Visit (OBGYWM ) SWATHI WAHL ([id number]) 1990 F Date Time Provider Department 03/13/24 10:20 AM ANGELA CRAWFORD During your visit today, we recorded the following information about you: Pulse Blood pressure Weight Height 90/minute 144/84 156.5 kg 1.689 m Last Period 02/28/24 Angela Crawford MD 03/13/2024 12:22 PM Signed Patient Summary: Swathi Wahl is a 33 year old female with obesity who presents for an initial evaluation of overweight/obesity to treat and prevent co-morbidities and is interested in combination of behavioral and pharmacological. Motivation for seeking treatment for the disease of overweight/obesity : She wants a better quality of life with her daughter. She is so tired and doesn't have the energy to do what she wants with her daughter. Goal weight: 230 lb Lowest recall weight: 220 lb Highest non- recall weight: 378 lb Patient identified barriers to weight loss: Lack of energy to have motivation to lose weight. She struggles with depression and emotionally eats. Weight History: She reports a strong family history of obesity and childhood weight gain. She states her weight gain is related to the following factors, including reduced physical activity, consumption of unhealthy foods, and depression . Difficulty losing weight? She has found it difficult to lose weight her whole life. History of weight loss with regain? Yes she lost 100 lbs in 2017 while using meth and heroin and then gained it back due to stress. Sober from ETOH since 2021 Clean from Meth and Heroin since 2018 - Last Wt 03/13/24 : (!) 156.5 kg (345 lb) 5% weight loss = 0 lbs, 10% weight loss = 0 lbs WEIGHT GRAPH: Diet/Nutrition overview: Awake - 6am B - 4 ego waffles- small amount of syrup, celcius energy drink S - sometimes peanuts or fruit snacks if she feels shaky (2x week) L - S - D - 5-6pm eats large portions- nigerian meals- tacos, burritos, meatloaf, lasagna, roast, green beans S - typically Fluids: milk (whole milk)- 16oz glass 3x day, 16oz water bottle 4-7 per day Bedtime -7-9pm Quality of diet: 24hr recall suggests in between diet. Characterization of diet:Unstructured, excessive cravings, evening snacking, increased consumption of sugar sweetened beverages (milk), and skip meals. Worm Sorter of impaired eating habits:excessive hunger, boredom, emotion, and stress Eating Disorder binge eating Cravings: carbs Sleep Duration: 10 hours. ANDREW YES ; CPAP NO - last sleep study 2014 Stress Stress:yes , Cause:Personal - mother is disabled, father is trigger, daughter is at difficult age possible ADHD Obesity Related Comorbidities: Prior Weight Loss Surgery:No 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 In [facility] program. 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 Hypothyroidism Mood disorder (HCC) bipolar 1 PAST SURGICAL HISTORY Procedure Laterality Date TONSILLECTOMY HX age 18 FAMILY HISTORY Problem Relation Age of Onset Diabetes Father Glaucoma Mother Diabetes Mother Kidney Disease Mother Stroke Mother Thyroid Mother hypo Heart Brother Cancer Maternal Grandmother Alcohol/Drug Paternal Grandmother Heart Paternal Grandfather Alcohol/Drug Paternal Aunt Alcohol/Drug Paternal Uncle Breast Cancer Other 2nd cousins Breast Cancer Other 2nd cousins Cervical Cancer Other 2nd cousins Cervical Cancer Other 2nd cousins Cervical Cancer Other 2nd cousins Social History Tobacco Use Smoking status: Former Current packs/day: 0.00 Types: Cigarettes Quit date: 01/28/2022 Years since quittin.1 Smokeless tobacco: Never Tobacco comments: half a pack daily Vaping Use Vaping status: Never Used Substance Use Topics Alcohol use: Yes Comment: rarely Drug use: No AOM Medications: Bupropion and Naltrexone- taking through set up technician Weight Promoting Medications: gabapentin and Other lamotrigine Diet/weight loss History: Past weight loss attempts? anti-obesity medications Phentermine. Diet and exercise Exercise: Regular exercise: walking Strength/resistance exercise:no Barriers to regular exercise? yes - joint pain and skin pain Work-related activity:Active. 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 Normal [facility] CNOVon 03-08-2024 CNOV Office Visit (UCWSTR ) SWATHI WAHL ([id number]) 1990 F Date Time Provider Department 03/08/24 9:00 AM MICHELLE ROBERTS [facility] During your visit today, we recorded the following information about you: Temperature Pulse Respiration Blood pressure 97.4 degrees 100/minute 21/minute 140/86 Weight 156.8 kg Michelle Roberts APRN.INSURANCE AGENCY MANAGER 03/08/2024 9:07 AM Signed This note was created using [employer]-f Systems[employer]. Subjective Swathi M Workman is a 33 year old female. HPI Pt has had diarrhea and nausea since yesterday. Pt's daughter had similar symptoms which have improved. Review of Systems Constitutional: Negative for fever. Gastrointestinal: Positive for diarrhea and nausea. Negative for abdominal pain, blood in stool and vomiting. Objective BP 140/86 Pulse 100 Temp 36.3 ?C (97.4 ?F) Resp 21 Wt (!) 156.8 kg (345 lb 10.9 oz) LMP 10/31/2023 (Approximate) SpO2 97% BMI 54.90 kg/m? Physical Exam Vitals and nursing note reviewed. Constitutional: General: She is not in acute distress. Appearance: Normal appearance. She is not ill-appearing. HENT: Head: Normocephalic. Mouth/Throat: Mouth: Mucous membranes are moist. Eyes: Conjunctiva/sclera: Conjunctivae normal. Cardiovascular: Rate and Rhythm: Normal rate and regular rhythm. Pulmonary: Effort: Pulmonary effort is normal. Breath sounds: Normal breath sounds. Abdominal: Tenderness: There is no abdominal tenderness. There is no guarding. Musculoskeletal: General: Normal range of motion. Cervical back: Normal range of motion. Skin: General: Skin is warm and dry. Neurological: General: No focal deficit present. Mental Status: She is alert. Psychiatric: Mood and Affect: Mood normal. Behavior: Behavior normal. Assessment and Plan ASSESSMENT/PLAN: 1. Nausea - ICD9: 787.02, ICD10: R11.0 (primary diagnosis) Patient given a prescription for Zofran. Instructed to attempt to hydrate with fluids containing increase calories and electrolytes. She should monitor that she urinates at least 3-4 times per day. -Work note given - ONDANSETRON 4 MG DISINTEGRATING TABLET 2. Diarrhea, unspecified type - ICD9: 787.91, ICD10: R19.7 As above -We also did discuss the risks and benefits of antidiarrheal medications. Patient prefers not to take them at this time. Michelle Roberts APRN.MICHELLE Allergies As of Date: 03/08/2024 Noted Allergy Reaction DEPAKOTE (DIVALPROEX) 11/19/2014 2 - Rash MELOXICAM 10/16/2015 9 - Itching NICOTINE 06/29/2018 16 - Unknown 2 - Rash Date Reviewed: 03/08/2024 Reviewed by: Michelle Roberts APRN.INSURANCE AGENCY MANAGER - Fully Assessed Reason for Visit: Diarrhea [35] Cmt: Nausea, HERNANDEZ x 1 day Primary Visit Diagnosis:Nausea [R11.0] Other Visit Diagnosis:Diarrhea, unspecified type [R19.7] Order(s):ondansetron orally disintegrating (ZOFRAN ODT) 4 mg disintegrating tabletTake 1 tablet by mouth every 8 hours as needed for nausea/vomiting.Disp: 12 tabletRfl: 0 Prescriptions as of 03/08/2024 - VYVANSE 50 mg capsule Take 1 capsule by mouth every afternoon. - atomoxetine (STRATTERA) 40 mg capsule Take 1 capsule by mouth every afternoon. - ondansetron orally disintegrating (ZOFRAN ODT) 4 mg disintegrating tablet Take 1 tablet by mouth every 8 hours as needed for nausea/vomiting. - semaglutide, weight loss, (WEGOVY) 0.25 mg/0.5 mL pen injector Inject 0.5 mL subcutaneously one time a week. - dextroamphetamine-amp hetamine (ADDERALL) 10 mg tablet TAKE 1 TABLET BY MOUTH ONCE DAILY IN THE AFTERNOON - metFORMIN (GLUCOPHAGE) 500 mg tablet Take 1 tablet by mouth daily with breakfast. - lamoTRIgine (LAMICTAL) 25 mg tablet Take 8 tablets by mouth daily at bedtime. - naltrexone 50 mg tablet Take 1 tablet by mouth every afternoon. - celecoxib (CELEBREX) 200 mg capsule Take 1 capsule by mouth once daily. - ciprofloxacin-dexAMET Hasone (CIPRODEX) 0.3-0.1 % otic suspension Use 4 Drops in the right ear two times a day. - thyroid, pork, (ARMOUR THYROID) 60 mg tablet Take 1 tablet by mouth once daily. - thyroid (ARMOUR THYROID) 15 mg tablet Take 1 tablet by mouth once daily. Take with 60 mg dose for total daily dose of 75 mg. - pantoprazole DR (PROTONIX) 40 mg tablet Take 1 tablet by mouth daily before breakfast. Take on empty stomach, 1/2 hr before meal. - VYVANSE 30 mg capsule - VYVANSE 40 mg capsule - gabapentin (NEURONTIN) 300 mg capsule Take 1 capsule by mouth twice daily. - Cholecalciferol, Vitamin D3, 50 mcg (2,000 unit) cap Take 1 capsule by mouth once daily. - buPROPion XL (WELLBUTRIN XL) 300 mg 24 hr tablet Take 1 tablet by mouth once daily. - propranolol (INDERAL) 20 mg tablet Take 1 tablet by mouth twice daily. - busPIRone (BUSPAR) 15 mg tablet Take 1 tablet by mouth three times daily. Problem List As Of Date 03/08/2024 Noted Resolved Anxiety [F41.9] 11/27/2014 Mood disorder (HCC) [F39] 11/27/2014 Back a (more content not included)... Normal [facility] EMERGENCY REPORTon EMERGENCY REPORT [facility] EMERGENCY ROOM REPORT NAME ACCOUNT SEX AGE ADMIT DISCHARGE PT MED. RECORD# NUMBER DATE DATE TYPE WORKMAN, [id number] Cade 33 12/13/23 12/14/23 3 SWATHI Rivers [id number] ROOM: [facility] DATE OF : 1990 DICTATING PHYSICIAN: Amara Alexandra ADDENDUM HISTORY OF PRESENT ILLNESS: This is a 33-year-old female who came to the Emergency Room with suicidal ideation. EMERGENCY DEPARTMENT COURSE AND TREATMENT: She was seen initially by Dr. Krishnamurthy and medically cleared. We had been awaiting a counseling session, which occurred somewhere after midnight, and a bed was arranged at [facility] in [place] for her to be transferred to that location. The counselor felt that she was still suicidal. She asked us to write a pink slip, which we did. The patient states she is under a lot of stress. She has quit her job. She recently started drinking alcohol again, and she is feeling poorly about that. She does not feel safe going home. The counselor has arranged a bed at [facility]. The patient has been comfortable here. She is a little anxious, for which she was given 1 mg of Ativan with calming effects noted. Her potassium was a little bit low at 3, for which she is being given a potassium pill. DIAGNOSIS: Suicidal ideation, depression and anxiety. PLAN/DISPOSITION: She will be transported by ambulance to [facility]. Dictated By: Amara Alexandra DO 12/14/23 03:42 JOB #: [id number] Transcribed By: sandra 12/15/23 09:34 Electronically signed by: E-SIGN AMARA ALEXANDRA DO 12/15/23 18:55 Page 1 of 1 SWATHI WAHL Emergency Room Report Normal [facility] ALCOHOL-BLOOD MEDICALon 11-27 Ethanol [Mass/Vol] 87 mg/dL High 0 - 50 [facility] Comment on above: Performed By: #### 2 [id number] #### [facility],[address] [place] [address] 28452 CBC + DIFFon 12-13-2023 Baso # 0.03 x10EE3/UL Normal 0.00 - 0.10 [facility] Comment on above: Performed By: #### 2 87838 #### [facility],[address] [place], [place] [id number] Basophils/100 WBC (Bld) 0.3 % Normal 0.0 - 2.0 [facility] Comment on above: Performed By: #### 2 15305 #### [facility],[address] [place] [address] 57338 CBC + DIFF Normal [facility] Comment on above: Result Comment: CBC- COMPLETE BLOOD COUNT Performed By: #### 2 [id number] #### [facility],[address] [place] [address] EO 4.0 % Normal 0.0 - 7.0 [facility] Comment on above: Performed By: #### 2 98432 #### [facility],[address] [place] [address] EO # 0.11 x10EE3/UL Normal 0.00 - 0.50 [facility] Comment on above: Performed By: #### 2 94608 #### [facility],[address] [place], [place] [id number] Eosinophils/100 WBC (Bld) 1.2 % Normal 0.0 - 7.0 [facility] Comment on above: Performed By: #### 2 88798 #### [facility],[address] [place] [address] Erythrocyte distribution width (RBC) [Ratio] 13.8 % Normal 12.0 - 15.6 [facility] Comment on above: Performed By: #### 2 67123 #### [facility],[address] [place], [place] [id number] Hematocrit (Bld) [Volume fraction] 35.5 % Normal 34.0 - 46.0 [facility] Comment on above: Performed By: #### 2 34075 #### [facility],[address] [place], [place] [id number] Hemoglobin (Bld) [Mass/Vol] 11.9 g/dL Low 12.0 - 16.0 [facility] Comment on above: Performed By: #### 2 54320 #### [facility],[address] [place] [address] 29770 Lymph # 2.47 x10EE3/UL Normal 0.80 - 2.80 [facility] Comment on above: Performed By: #### 2 90493 #### [facility],[address] [place] [address] 25787 Lymphocytes/100 WBC (Bld) 27.5 % Normal 20.0 - 45.0 [facility] Comment on above: Performed By: #### 2 59277 #### [facility],[address] [place] [address] 61533 Lymphocytes/100 WBC (Bld) 33 % Normal 20 - 45 [facility] Comment on above: Performed By: #### 2 35800 #### [facility],[address] [place] [address] 72888 MANUAL DIFF SEE BELOW Normal [facility] Comment on above: Performed By: #### 2 55452 #### [facility],[address] [place] [address] 74075 MCH (RBC) [Entitic mass] 31 pg Normal 27 - 33 [facility] Comment on above: Performed By: #### 2 13203 #### [facility],[address] [place] [address] 09687 MCHC 33 X10 3 Normal 32 - 36 [facility] Comment on above: Performed By: #### 2 80498 #### [facility],[address] [place] [address] 86323 MCV (RBC) [Entitic vol] 91 fL Normal 80 - 99 [facility] Comment on above: Performed By: #### 2 94002 #### [facility],[address] [place] [address] 55911 Hemphill # 0.39 x10EE3/UL Normal 0.20 - 1.00 [facility] Comment on above: Performed By: #### 2 90062 #### [facility],[address] [place] [address] 55954 MONOS 3 % Normal 0 - 10 [facility] Comment on above: Performed By: #### 2 99979 #### [facility],[address] [place] [address] 84679 MONOS % 4.3 % Normal 0.0 - 10.0 [facility] Comment on above: Performed By: #### 2 97720 #### [facility],[address] [place] [address] 59287 Morphology Mazin (Bld) [Interp] N/A Normal [facility] Comment on above: Performed By: #### 2 74612 #### [facility],[address] [place] [address] 89303 Neut # 6.00 x10EE3/UL Normal 1.50 - 7.10 [facility] Comment on above: Performed By: #### 2 20201 #### [facility],[address] [place] [address] 11607 Neutrophils/100 WBC (Bld) 66.7 % Normal 46.0 - 76.0 [facility] Comment on above: Performed By: #### 2 80048 #### [facility],[address] [place] [address] 27629 PLATELET 227 x10EE3/UL Normal 150 - 450 [facility] Comment on above: Performed By: #### 2 72157 #### [facility],[address] [place] [address] 22473 Platelet mean volume (Bld) [Entitic vol] 8.2 fL Normal 6.6 - 10.5 [facility] Comment on above: Result Comment: AUTO MATED DIFFERENTIAL Performed By: #### 2 91057 #### [facility],[address] [place] [address] 20974 RBC 3.89 x 10EE6/UL Low 4.10 - 5.30 [facility] Comment on above: Performed By: #### 2 18989 #### [facility],[address] [place] [address] 57699 SEGS 60 % Normal 46 - 76 [facility] Comment on above: Performed By: #### 2 60838 #### [facility],[address] [place] [address] 83817 WBC 9.0 x 10EE3/UL Normal 4.5 - 10.8 [facility] Comment on above: Performed By: #### 2 72181 #### [facility],[address] [place] [address] 07337 CMP with eGFRon 12-13-2023 AGE 33 years Normal [facility] Comment on above: Performed By: #### 2 31324 #### [facility],[address] [place] [address] 12381 Albumin [Mass/Vol] 3.3 g/dL Low 3.4 - 5.0 [facility] Comment on above: Performed By: #### 2 48985 #### [facility],[address] [place] [address] 06343 Albumin/Globulin [Mass ratio] 0.9 {ratio} Normal 0.9 - 1.6 [facility] Comment on above: Performed By: #### 2 46177 #### [facility],[address] [place] [address] 66374 ALK PHOS 72 U/L Normal 46 - 116 [facility] Comment on above: Performed By: #### 2 19530 #### [facility],[address] [place] [address] 92176 ALT [Catalytic activity/Vol] 28 U/L Normal 16 - 63 [facility] Comment on above: Performed By: #### 2 15973 #### [facility],[address] [place] [address] 70791 Anion gap [Moles/Vol] 15 mmol/L Normal 10 - 20 [facility] Comment on above: Performed By: #### 2 71772 #### [facility],[address] [place] [address] 27601 AST [Catalytic activity/Vol] 19 U/L Normal 13 - 39 [facility] Comment on above: Performed By: #### 2 [id number] #### [facility],[address] [place] [address] 01948 B/C RATIO 15 ratio Normal 0 - 30 [facility] Comment on above: Performed By: #### 2 38488 #### [facility],[address] [place] [address] 28904 Bilirubin [Mass/Vol] 0.3 mg/dL Normal 0.2 - 1.0 [facility] Comment on above: Performed By: #### 2 97230 #### [facility],[address] [place] [address] 10931 Calcium [Mass/Vol] 8.4 mg/dL Low 8.5 - 10.1 [facility] Comment on above: Performed By: #### 2 20237 #### [facility],[address] [place] [address] 64402 Chloride [Moles/Vol] 105 mmol/L Normal 98 - 107 [facility] Comment on above: Performed By: #### 2 61631 #### [facility],[address] [place] [address] 65330 CMP with eGFR Normal [facility] Comment on above: Result Comment: COMP REHENSIVE METABOLIC PANEL Performed By: #### 2 20213 #### [facility],[address] [place] [address] 75240 CO2 [Moles/Vol] 25.3 mmol/L Normal 21.0 - 32.0 [facility] Comment on above: Performed By: #### 2 49607 #### [facility],[address] [place] [address] 10310 Creatinine [Mass/Vol] 0.92 mg/dL Normal 0.55 - 1.02 [facility] Comment on above: Performed By: #### 2 97573 #### [facility],[address] [place] [address] 31262 GFR/1.73 sq M.predicted among non-blacks MDRD (S/P/Bld) [Vol rate/Area] mL/min/{1.73_m2} Normal 60 - 999 [facility] Comment on above: Performed By: #### 2 88252 #### [facility],[address] [place] [address] 70853 Result Comment: ACCO RDING TO THE NATIONAL KIDNEY DISEASE EDUCATION PROGRAM(NKDE), A NORMAL eGFR IS A VALUE GREATER THAN OR EQUAL TO 60 ML/MIN/1.73 SQ METERS. CHRONIC KIDNEY DISEASE: <60mL/MIN/1.73 SQ METERS KIDNEY FAILURE: <15mL/MIN/1.73 SQ METERS THIS TEST SHOULD ONLY BE USED FOR PATIENTS 18 YEARS OF AGE AND OLDER. Globulin (S) [Mass/Vol] 3.8 g/dL Normal 1.5 - 3.8 [facility] Comment on above: Performed By: #### 2 40154 #### [facility],[address] [place] [address] 80520 Glucose [Mass/Vol] 106 mg/dL Normal 74 - 106 [facility] Comment on above: Performed By: #### 2 69993 #### [facility],[address] [place] [address] 31204 Potassium [Moles/Vol] 3.0 mmol/L Low 3.5 - 5.1 [facility] Comment on above: Performed By: #### 2 00575 #### [facility],[address] [place] [address] 08379 Protein [Mass/Vol] 7.1 g/dL Normal 6.4 - 8.2 [facility] Comment on above: Performed By: #### 2 64244 #### [facility],[address] [place] [address] 38354 Sodium [Moles/Vol] 142 mmol/L Normal 136 - 145 [facility] Comment on above: Performed By: #### 2 55741 #### [facility],[address] [place] [address] 03246 Urea nitrogen [Mass/Vol] 14 mg/dL Normal 7 - 18 [facility] Comment on above: Performed By: #### 2 22641 #### [facility],[address] [place] [address] 67077 CORONAVIRUS (SARS) ANTIGEN T ESTon 12-13-2023 EXTERNAL QC DONE? YES Normal [facility] Comment on above: Performed By: #### 2 63636 #### [facility],[address] [place] [address] 06468 INTERNAL CONTROL PASS Normal [facility] Comment on above: Performed By: #### 2 81062 #### [facility],[address] [place] [address] 85154 SARS ANTIGEN Negative Normal NORMAL: NEGATIVE [facility] Comment on above: Performed By: #### 2 88510 #### [facility],[address] [place] [address] 21513 SEND TO ? NO Normal [facility] Comment on above: Result Comment: SARS -CoV-2 THIS TEST IS BEING USED UNDER THE FDA EUA PROCEDURE. THIS ASSAY HAS BEEN VALIDATED AT [facility] FOR USE WITH NASAL AND NASOPHARYNGEAL SWAB SPECIMENS. INTERPRETIVE DATA TEST RESULTS SHOULD ALWAYS BE CONSIDERED IN THE CONTEXT OF CLINICAL OBSERVATIONS AND EPIDEMIOLOGICAL DATA IN MAKING FINAL DIAGNOSIS AND PATIENT MANAGEMENT DECISIONS. PATIENT MANAGEMENT SHOULD FOLLOW CURRENT CDC GUIDELINES. THE FIDEL SARS ANTIGEN JULIANA DOES NOT DIFFERENTIATE BETWEEN SARS-CoV & SARS-CoV-2. A POSITIVE TEST RESULT INDICATES THE PRESENCE OF SARS-CoV-2 NUCLEOCAPSID PROTEIN ANTIGEN, AND THE PATIENT IS INFECTED WITH THE VIRUS AND PRESUMED TO BE CONTAGIOUS. A NEGATIVE TEST RESULT FOR THIS TEST MEANS THAT SARS-CoV-2 NUCLEOCAPSID PROTEIN ANTIGEN WAS NOT PRESENT IN THE SPECIMEN ABOVE THE LIMIT OF DETECTION. HOWEVER, A NEGATIVE RESULT DOES NOT RULE OUT COVID-19 AND SHOULD NOT BE USED THE SOLE BASIS FOR TREATMENT OR PATIENT MANAGEMENT DECISIONS. A NEGATIVE RESULT DOES NOT EXCLUDE THE POSSIBILITY OF COVID-19. NEGATIVE RESULTS, FROM PATIENTS WITH SYMPTOM ONSET BEYOND FIVE DAYS, SHOULD BE TREATED PRESUMPTIVE AND CONFIRMATION WITH A MOLECULAR ASSAY, IF NECESSARY, FOR PATIENT MANAGEMENT, MAY BE PERFORMED. WHEN DIAGNOSTIC TESTING IS NEGATIVE, THE POSSIBLILTY OF A FALSE NEGATIVE RESULT SHOULD BE CONSIDERED IN THE CONTEXT OF A PATIENT'S RECENT EXPOSURES AND THE PRESENCE OF CLINICAL SIGNS AND SYMPTOMS CONSISTENT WITH COVID-19. THE POSSIBILITY OF A FALSE NEGATIVE RESULT SHOULD ESPECIALLY BE CONSIDERED IF THE PATIENT'S RECENT EXPOSURES OR CLINICAL PRESENTATION INDICATE THAT COVID-19 IS LIKELY, AND DIAGNOSTIC TESTS FOR OTHER CAUSES OF ILLNESS (e.g., OTHER RESPIRATORY ILLNESS) ARE NEGATIVE. IF COVID-19 IS STILL SUSPECTED BASED ON EXPOSURE HISTORY TOGETHER WITH OTHER CLINICAL FINDINGS, RE-TESTING SHOULD BE CONSIDERED BY HEALTHCARE PROVIDERS IN CONSULTATION WITH PUBLIC HEALTH AUTHORITIES. Performed By: #### 2 07779 #### [facility],[address] [place] [address] DRUG SCREEN URINE MEDICon AMPHETAMINES [facility] Comment on above: Performed By: #### 2 31114 #### [facility],[address] [place] [address] B-DIAZEPINES [facility] Comment on above: Performed By: #### 2 51795 #### [facility],[address] [place], [place] [id number] BARBITURATES [facility] Comment on above: Performed By: #### 2 12127 #### [facility],[address] [place] [address] COCAINE Negative [facility] Comment on above: Performed By: #### 2 35785 #### [facility],[address] [place] [address] DRUG SCREEN URINE MEDIC [facility] Comment on above: Result Comment: DRUG SCREEN - URINE Performed By: #### 2 49743 #### [facility],[address] [place] [address] 18461 METHADONE Negative [facility] Comment on above: Performed By: #### 2 65550 #### [facility],[address] [place] [address] 33541 OPIATES Negative Normal [facility] Comment on above: Performed By: #### 2 45691 #### [facility],[address] [place] [address] 99145 PCP Negative Normal [facility] Comment on above: Performed By: #### 2 22619 #### [facility],[address] [place], [place] [id number] THC Negative Normal [facility] Comment on above: Result Comment: EULALIA ENTS RECEIVING PROTON PUMP INHIBITORS MAY DEMONSTRATE FALSE POSITIVE THC/CANNABINOID RESULTS. AN ALTERNATIVE CONFIRMATORY METHOD SHOULD BE CONSIDERED TO VERIFY POSITIVE RESULTS. Performed By: #### 2 51658 #### [facility],[address] [place], [place] [phone] URINEon 12-13-2023 Beta HCG ( test) Ql (U) Negative Normal NEGATIVE [facility] Comment on above: Performed By: #### 2 58709 #### [facility],[address] [place] [address] EXTERNAL QC DONE? YES Normal [facility] Comment on above: Performed By: #### 2 60059 #### [facility],[address] [place], [place] [phone] INTERNAL QC PASS Normal [facility] Comment on above: Performed By: #### 2 81049 #### [facility],[address] [place] [address] 21002 URINALYSISon 12-13-2023 Bilirubin Ql (U) Negative Normal NORMAL: NEGATIVE [facility] Comment on above: Performed By: #### 2 19670 #### [facility],[address] [place], [place] [phone] Clarity (U) clear Normal NORMAL: CLEAR [facility] Comment on above: Performed By: #### 2 92724 #### [facility],[address] [place], [place] [phone] Color (U) yellow Normal NORMAL: YELLOW [facility] Comment on above: Performed By: #### 2 46493 #### [facility],[address] [place] [address] 27141 Glucose Ql (U) NORM Normal NORMAL: NORMAL [facility] Comment on above: Performed By: #### 2 99533 #### [facility],[address] [place] [address] 04400 Hemoglobin Ql (U) Negative Normal NORMAL: NEGATIVE [facility] Comment on above: Performed By: #### 2 50153 #### [facility],[address] [place] [address] 00175 Ketone Negative Normal NORMAL: NEGATIVE [facility] Comment on above: Performed By: #### 2 00253 #### [facility],[address] [place] [address] 63729 Leukocytes Negative Normal NORMAL: NEGATIVE [facility] Comment on above: Performed By: #### 2 75342 #### [facility],[address] [place] [address] 03878 Nitrite Ql (U) Negative Normal NORMAL: NEGATIVE [facility] Comment on above: Performed By: #### 2 40026 #### [facility],[address] [place] [address] 29673 pH (U) 5 [pH] Normal NORMAL: 5.0-8.0 [facility] Comment on above: Performed By: #### 2 51052 #### [facility],[address] [place] [address] 88308 Protein Ql (U) 15 Abnormal NORMAL: NEGATIVE [facility] Comment on above: Performed By: #### 2 23310 #### [facility],[address] [place] [address] 84290 Sp [place] 1.025 Normal NORMAL: 1.010-1.030 [facility] Comment on above: Performed By: #### 2 27731 #### [facility],[address] [place] [address] Specimen Type UNSPECIFIED Normal [facility] Comment on above: Performed By: #### 2 76003 #### [facility],[address] [place] [address] Urinalysis dipstick W Reflex Microscopic panel (U) NOT INDICATED Normal [facility] Comment on above: Performed By: #### 2 00379 #### [facility],[address] [place] [address] Urobilinog NORM Normal NORMAL: NORMAL [facility] Comment on above: Performed By: #### 2 53186 #### [facility],[address] [place], [place] [id number] CNPNon 12-06-2023 JUDIT Telephone (KORIN) SWATHI WAHL ([id number]) 1990 F Date Time Provider Department 12/06/23 URSULA BE During your visit today, we recorded the following information about you: Good Pacheco LPN 12/06/2023 8:22 AM Signed [facility] message regarding Wegovy. Have we received word from insurance yet? Please advise. ANALIA Hedrick [place], [place] 12/06/2023 8:38 AM Signed Previous message from 11/18 not sent to [place]. Medicaid does not cover any weight loss medication. Patient was notified by phone and through mychart not covered. MIRACLE De Los Santos Christy, APRN.CNP 12/06/2023 8:42 AM Signed Noted. Ursula Be APRN.INSURANCE AGENCY MANAGER Allergies As of Date: 12/06/2023 Noted Allergy Reaction DEPAKOTE (DIVALPROEX) 11/19/2014 2 - Rash MELOXICAM 10/16/2015 9 - Itching NICOTINE 06/29/2018 16 - Unknown 2 - Rash Date Reviewed: 11/22/2023 Reviewed by: Sheela Thornton MA - Fully Assessed Reason for Visit: Insurance Authorization [[id number]] Cmt: Wegovy Prescriptions as of 12/06/2023 - semaglutide, weight loss, (WEGOVY) 0.25 mg/0.5 mL pen injector Inject 0.5 mL subcutaneously one time a week. - dextroamphetamine-amp hetamine (ADDERALL) 10 mg tablet TAKE 1 TABLET BY MOUTH ONCE DAILY IN THE AFTERNOON - metFORMIN (GLUCOPHAGE) 500 mg tablet Take 1 tablet by mouth daily with breakfast. - lamoTRIgine (LAMICTAL) 25 mg tablet Take 8 tablets by mouth daily at bedtime. - naltrexone 50 mg tablet Take 1 tablet by mouth every afternoon. - celecoxib (CELEBREX) 200 mg capsule Take 1 capsule by mouth once daily. - ciprofloxacin-dexAMET Hasone (CIPRODEX) 0.3-0.1 % otic suspension Use 4 Drops in the right ear two times a day. - thyroid, pork, (ARMOUR THYROID) 60 mg tablet Take 1 tablet by mouth once daily. - thyroid (ARMOUR THYROID) 15 mg tablet Take 1 tablet by mouth once daily. Take with 60 mg dose for total daily dose of 75 mg. - pantoprazole DR (PROTONIX) 40 mg tablet Take 1 tablet by mouth daily before breakfast. Take on empty stomach, 1/2 hr before meal. - VYVANSE 30 mg capsule - VYVANSE 40 mg capsule - gabapentin (NEURONTIN) 300 mg capsule Take 1 capsule by mouth twice daily. - Cholecalciferol, Vitamin D3, 50 mcg (2,000 unit) cap Take 1 capsule by mouth once daily. - buPROPion XL (WELLBUTRIN XL) 300 mg 24 hr tablet Take 1 tablet by mouth once daily. - propranolol (INDERAL) 20 mg tablet Take 1 tablet by mouth twice daily. - busPIRone (BUSPAR) 15 mg tablet Take 1 tablet by mouth three times daily. 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] 06/01/2018 Maternal tobacco use in first trimester [O99.33*06/01/2018 11/22/2023 Substance abuse (HCC) [F19.10] 09/08/2018 Request for sterilization [Z30.2] 11/21/2018 Anemia during in third trimester [O99*11/28/2018 11/22/2023 Abnormal glucose complicating [O99.81*11/28/2018 11/22/2023 Excessive growth affecting management of *12/09/2018 01/11/2019 Polyhydramnios in third trimester [O40.3XX0] 12/09/2018 11/22/2023 Obesity, Class III, BMI >= 40 [E66.01] 06/09/2019 Encounter Status:Closed by URSULA BE on 12/06/23 [facility] ALEXISOVon 11-22-2023 CNOV Office Visit (OBGYWM ) SWATHI WAHL ([id number]) 1990 F Date Time Provider Department 11/22/23 10:00 AM MANUELA PEARCE During your visit today, we recorded the following information about you: Blood pressure Weight Height Last Period 120/72 152.9 kg 1.69 m 10/31/23 Manuela Pearce APRN.CNM 11/22/2023 11:01 AM Signed Active Directory Engineer offered: Patient declines. Swathi is a 33 year old who presents for an annual gynecologic exam without complaints. Working with primary care for weight loss and weight management. 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 Was in correction for 6 months 10 days after delivery. Menses: cycles every 30 days and 5 days of flow. Contraception: none HPV vaccine: No Last Pap: 06/06/2018 normal HPV: N/A History of abnormal pap: No Last mammogram: never Sexually active: No, declines STD testing Time with current partner: No partners since 2019 Exercise: Active at work. 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 In [facility] program. 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 Hypothyroidism Mood disorder (HCC) bipolar 1 PAST SURGICAL HISTORY Procedure Laterality Date TONSILLECTOMY HX age 18 FAMILY HISTORY Problem Relation Age of Onset Diabetes Father Glaucoma Mother Diabetes Mother Kidney Disease Mother Stroke Mother Thyroid Mother hypo Heart Brother Cancer Maternal Grandmother Alcohol/Drug Paternal Grandmother Heart Paternal Grandfather Alcohol/Drug Paternal Aunt Alcohol/Drug Paternal Uncle Breast Cancer Other 2nd cousins Breast Cancer Other 2nd cousins Cervical Cancer Other 2nd cousins Cervical Cancer Other 2nd cousins Cervical Cancer Other 2nd cousins SOCIAL HISTORY Social History Tobacco Use Smoking status: Former Types: Cigarettes Quit date: 01/28/2022 Years since quittin.8 Smokeless tobacco: Never Tobacco comments: half a pack daily Vaping Use Vaping Use: Never used Substance Use Topics Alcohol use: Yes Comment: rarely Drug use: No REVIEW OF SYSTEMS Abdomen: No abdominal pain, nausea, vomiting, diarrhea, or constipation. No bloating, early satiety, indigestion, or increased flatulence. Bladder: No dysuria, gross hematuria, urinary frequency, urinary urgency, or incontinence. Breast: No breast lumps, nipple d/c, overlying skin changes, redness or skin retraction. Allergies and current medication updated:Yes EXAM: BP 120/72 Ht 5' 6.535 (1.69m) Wt 337 lb (152.9kg) LMP 10/31/2023 BMI 53.52 kg/(m2). GENERAL: pleasant, female in no apparent distress HEENT: Normocephalic, atraumatic, mucus membranes moist, and no lesions NECK: Supple, full range of motion, no adenopathy, and thyroid normal DERMATOLOGY: Normal, without lesions, non-icteric, and non-hirsute BREAST: soft, non-tender, symmetric, no dominant mass, normal nipple-areolar complex, no lymphadenopathy, and no nipple discharge CHEST: Normal inspiratory effort ABDOMEN: soft, non-tender, and no masses PELVIC: external genitalia normal, normal Bartholin's glands, urethra, Orleans's glands, no vulvar lesions, no cervical lesions, good vaginal support, physiologic discharge present, normal appearing perineal body and perianal region BIMANUAL: uterus normal size, shape and consistency, no adnexal masses, and non-tender RECTOVAGINAL: deferred. NEURO: alert and oriented x3,exam grossly non-focal EXTREMITIES: normal ASSESSMENT/PLAN: 1. Encounter for gynecological examination (general) (routine) without abnormal findings - ICD9: V72.31, ICD10: Z01.419 (primary diagnosis) - Completed pelvic and breast exam - Encouraged monthly BSE - Follow up for annual exam in one year. 2. Screening for cervical cancer - ICD9: V76.2, ICD10: Z12.4 - Completed pelvic and breast exam - Encouraged monthly BSE - Follow up for annual exam in one year. - PAP TEST 3. Encounter for screening for human papillomavirus (HPV) - ICD9: V73.81, ICD10: Z11.51 - PAP TEST 4. Class 3 severe obesity without serious comorbidity with body mass index (BMI) of 50.0 to 59.9 in adult, unspecified obesity type (HCC) - ICD9: 278.01, V85.43, ICD10: E66. (more content not included)... Normal [facility] HIGH RISK HUMAN PAPILLOMA MENDEZ (HPV), PCR FOR DETECTION AND GENOTYPINGon 11-22-2023 HPV 16 Ag Ql (Unsp spec) Not detected Normal Not detected [facility] Comment on above: Order Comment: Speci men Type: FLUID SPECIMENOrdering Facility: [facility] Address: [address] [place] [address] Performed By: #### L [id number] ####[facility]ATORYCLIA [id number] [address] LABCLIA [id number] [place] [address] [place]#### HPVHRT ####[facility] LABCLIA [id number] [place] [address] [place] HPV 18 Ag Ql (Unsp spec) Not detected Normal Not detected [facility] Comment on above: Order Comment: Speci men Type: FLUID SPECIMENOrdering Facility: [facility] Address: [address] [place] [address] Performed By: #### L [id number] ####[facility] [id number] [address] STATES [facility] LABCLIA [id number] [place] [address] [place]#### HPVHRT ####[facility] LABCLIA [id number] [place] [address] [place] HPV 31+33+35+39+45+51+52 +56+58+59+66+68 DNA ESHA+probe Ql (Cvx) Not detected Normal Not detected [facility] Comment on above: Order Comment: Speci men Type: FLUID SPECIMENOrdering Facility: [facility] Address: [address] [place] [address] Result Comment: High Risk HPV Other Type includes HPV types 31, 33, 35, 39, 45, 51, 52, 56, 58, 59, 66 and 68. Performed By: #### L [id number] ####[facility]IA [id number] [address] LABCLIA [id number] [place] [address] [place]#### HPVHRT ####[facility] LABCLIA [id number] [place] [address] [place] PAP TESTon 11-22-2023 ADEQUACY Satisfactory for interpretation. Normal [facility] Comment on above: Order Comment: Speci men Type: FLUID SPECIMENOrdering Facility: [facility] Address: [address] [place] [address] Performed By: #### L [id number] ####[facility]IA [id number] [address] LABCLIA [id number] [place] [address] [place]#### HPVHRT ####[facility] LABCLIA [id number] [address] [place] CASE REPORT Normal [facility] Comment on above: Order Comment: Speci men Type: FLUID SPECIMENOrdering Facility: [facility] Address: [address] [place] [address] Result Comment: Gyne cologic Cytology Report Case: [id number] Authorizing Provider: Manuela Pearce APRN.CNM Collected: 11/22/2023 10:59 AM Ordering Location: OB/Gynecology Received: 11/22/2023 12:11 PM First Screen: Oliver, Carey, CT, ASCP Specimen: Pap Test, ThinPrep, Cervix Performed By: #### L [id number] ####[facility]ATORYCLIA [id number] [address] LABCLIA [id number] [place] [address] [place]#### HPVHRT ####[facility] LABCLIA [id number] [place] [address] [place] CLINICAL HISTORY, CYTOLOGY, BAG WASHER Routine Exam Normal [facility] Comment on above: Order Comment: Speci men Type: FLUID SPECIMENOrdering Facility: [facility] Address: [address] [place] [address] Performed By: #### L [id number] ####[facility]ORYCLIA [id number] [place] [address] [place] [facility] [id number] [place] [address] [place]#### HPVHRT ####[facility] LABCLIA [id number] [place] [address] [place] FINAL PERFORMING LAB Normal [facility] Comment on above: Order Comment: Speci men Type: FLUID SPECIMENOrdering Facility: [facility] Address: [address] [id number] Result Comment: Tech nical component, timber mill worker screening performed at [facility], [address] [id number] CLIA# [id number] Diagnostic interpretation performed at [facility], [address] [id number] CLIA# [id number] Desktop Support Technician: Sri Fields M.D. Performed By: #### L [id number] ####[facility]ATORYCLIA [id number] [place] [id number] [place] [facility] LABCLIA [id number] [place] [address] [place]#### HPVHRT ####[facility] LABCLIA [id number] [place] [address] [place] HPV REFLEX Yes HPV Normal [facility] Comment on above: Order Comment: Speci men Type: FLUID SPECIMENOrdering Facility: [facility] Address: [address] [place] [address] Performed By: #### L [id number] ####[facility]ORYCLIA [id number] [place] [id number] [facility] LABCL[facility] [id number] [place] [address] [place]#### HPVHRT ####[facility] LABCLIA [id number] [place] [address] [place] INTERPRETATION, CYTOLOGY, BAG WASHER Normal [facility] Comment on above: Order Comment: Speci men Type: FLUID SPECIMENOrdering Facility: [facility] Address: [address] [place] [address] Result Comment: Nega tive for intraepithelial lesion or malignancy. Performed By: #### L [id number] ####[facility]ORYCLIA [id number] [place] [address] [facility] [id number] [place] [address] [place]#### HPVHRT ####[facility] LABCLIA [id number] [place] [address] [place] LMP 10/31/[address] [facility] Comment on above: Order Comment: Speci men Type: FLUID SPECIMENOrdering Facility: [facility] Address: [address] [place], [place] [address] Performed By: #### L [id number] ####[facility]ATORYCLIA [id number] [place] [id number] [facility] [id number] [place] [address] [place]#### HPVHRT ####[facility] LABCLIA [id number] [address] PAP DISCLAIMER COMMENT The Pap Smear is a screening test for cervical cancer. False negative results occur with all screening tests, emphasizing the need for rescreening at recommended intervals, and clinical correlation. Normal [facility] Comment on above: Order Comment: Speci men Type: FLUID SPECIMENOrdering Facility: [facility] Address: [address] [place] [address] Performed By: #### L [id number] ####[facility]ATORYCLIA [id number] [address] OF [facility] LABCLIA [id number] [address] OF [place]#### HPVHRT ####[facility] LABCLIA [id number] [address] OF [facility] CNOVon 11-15-2023 [facility] SWATHI WAHL ([id number]) 1990 F Date Time Provider Department 11/15/23 10:00 AM [facility] During your visit today, we recorded the following information about you: Pulse Respiration Blood pressure Weight 88/minute 16/minute 124/92 153.3 kg Ursula Be APRN.CNP 11/15/2023 6:49 PM Signed This is a 33 year old female who presents today with: Patient presents with: Discussion: Would like to discuss weight loss medication- wegovy HISTORY OF PRESENT ILLNESS: Swathi Rivers Vish is a 33 year old female. Patient presents with: Discussion: Would like to discuss weight loss medication- wegovy Pt presents today because she would like to discuss staring a medication like wegovy. Refers that she was taken off the vyvanse because of starting another medication for the ADHD. Refers she has been gaining weight, but is less than she was last year. She was previously referred to bariatrics and was pursuing possible surgery. Reports that she was denied d/t previous addiction hx. She has no family hx of thyroid cancer. No hx of pancreatitis. She is aware that medication likely is not going to be covered by insurance. Did discuss [facility]. 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 In [facility] program. 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 lamoTRIgine (LAMICTAL) 25 mg tablet Take 8 tablets by mouth daily at bedtime. naltrexone 50 mg tablet Take 1 tablet by mouth every afternoon. celecoxib (CELEBREX) 200 mg capsule Take 1 capsule by mouth once daily. ciprofloxacin-dexAMET Hasone (CIPRODEX) 0.3-0.1 % otic suspension Use 4 Drops in the right ear two times a day. thyroid, pork, (ARMOUR THYROID) 60 mg tablet Take 1 tablet by mouth once daily. thyroid (ARMOUR THYROID) 15 mg tablet Take 1 tablet by mouth once daily. Take with 60 mg dose for total daily dose of [address] (PROTONIX) 40 mg tablet Take 1 tablet by mouth daily before breakfast. Take on empty stomach, 1/2 hr before meal. VYVANSE 30 mg capsule VYVANSE 40 mg capsule gabapentin (NEURONTIN) 300 mg capsule Take 1 capsule by mouth twice daily. Cholecalciferol, Vitamin D3, 50 mcg (2,000 unit) cap Take 1 capsule by mouth once daily. buPROPion XL (WELLBUTRIN XL) 300 mg 24 hr tablet Take 1 tablet by mouth once daily. propranolol (INDERAL) 20 mg tablet Take 1 tablet by mouth twice daily. busPIRone (BUSPAR) 15 mg tablet Take 1 tablet by mouth three times daily. No current facility-administered medications for this visit. FAMILY HISTORY Problem Relation Age of Onset Diabetes Father Glaucoma Mother Diabetes Mother Kidney Disease Mother Stroke Mother Thyroid Mother hypo Heart Brother Cancer Maternal Grandmother Alcohol/Drug Paternal Grandmother Heart Paternal Grandfather Alcohol/Drug Paternal Aunt Alcohol/Drug Paternal Uncle Breast Cancer Other 2nd cousins Breast Cancer Other 2nd cousins Cervical Cancer Other 2nd cousins Cervical Cancer Other 2nd cousins Cervical Cancer Other 2nd cousins Social History Tobacco Use Smoking status: Former Types: Cigarettes Quit date: 01/28/2022 Years since quittin.7 Smokeless tobacco: Never Tobacco comments: half a pack daily Substance Use Topics Alcohol use: Yes Comment: rarely Drug use: No EXAM: BP 124/92 Pulse 88 Resp 16 Wt (!) 153.3 kg (338 lb) LMP 04/14/2023 (Approximate) SpO2 95% BMI 54.55 kg/m? PHYSICAL EXAM: General Appearance: Well appearing, alert, in no acute distress, well-hydrated, well nourished.. Skin: Skin color, texture, turgor normal, no suspicious rashes or lesions. Head: Normocephalic, no masses, lesions, tenderness or abnormalities. Eyes: Anicteric sclera. Pupils are equally round and reactive to light. Extraocular movements are intact. . Neurologic: Gait normal. ASSESSMENT/PLAN: 1. Morbid obesity with BMI of 50.0-59.9, adult (HCC) - ICD9: 278.01, V85.43, ICD10: E66.01, Z68.43 Stable - Pharmacological intervention No contraindications to wegovy. She is aware that this likely will not be covered by insurance. - SEMAGLUTIDE (WEIGHT LOSS) 0.25 MG/0.5 ML SUBCUTANEOUS PEN INJECTOR - CONSULT TO [facility] WEIGHT (more content not included)... Normal [facility] Cristo 09-26-2023 MICHELLEN Telephone (FAMPWS) SWATHI WAHL ([id number]) 1990 F Date Time Provider Department 09/26/23 JONY MARTELLWS During your visit today, we recorded the following information about you: Ramona Bone MA 09/26/2023 8:10 AM Signed Insurance will not pay for metformin ER till trail/failure of metformin. Please send Cancelled out metformin ER. MIRACLE De Los Santos Rilee, MA 09/27/2023 9:06 AM Signed The following approved medication requests have been transmitted electronically. Requested Prescriptions Signed Prescriptions Disp Refills metFORMIN (GLUCOPHAGE) 500 mg tablet 30 tablet 5 Sig: Take 1 tablet by mouth daily with breakfast. Authorizing Provider: JONY MARTELL MA Allergies As of Date: 09/26/2023 Noted Allergy Reaction DEPAKOTE (DIVALPROEX) 11/19/2014 2 - Rash MELOXICAM 10/16/2015 9 - Itching NICOTINE 06/29/2018 16 - Unknown 2 - Rash Date Reviewed: 09/06/2023 Reviewed by: Good Pacheco LPN - Fully Assessed Reason for Visit: Insurance Authorization [[id number]] Cmt: Metformin ER Primary Visit Diagnosis:Prediabetes [R73.03] Order(s):metFORMIN (GLUCOPHAGE) 500 mg tabletTake 1 tablet by mouth daily with breakfast.Disp: 30 tabletRfl: 5 Prescriptions as of 09/27/2023 - metFORMIN (GLUCOPHAGE) 500 mg tablet Take 1 tablet by mouth daily with breakfast. - lamoTRIgine (LAMICTAL) 25 mg tablet Take 8 tablets by mouth daily at bedtime. - naltrexone 50 mg tablet Take 1 tablet by mouth every afternoon. - celecoxib (CELEBREX) 200 mg capsule Take 1 capsule by mouth once daily. - ciprofloxacin-dexAMET Hasone (CIPRODEX) 0.3-0.1 % otic suspension Use 4 Drops in the right ear two times a day. - thyroid, pork, (ARMOUR THYROID) 60 mg tablet Take 1 tablet by mouth once daily. - thyroid (ARMOUR THYROID) 15 mg tablet Take 1 tablet by mouth once daily. Take with 60 mg dose for total daily dose of 75 mg. - pantoprazole DR (PROTONIX) 40 mg tablet Take 1 tablet by mouth daily before breakfast. Take on empty stomach, 1/2 hr before meal. - VYVANSE 30 mg capsule - VYVANSE 40 mg capsule - gabapentin (NEURONTIN) 300 mg capsule Take 1 capsule by mouth twice daily. - Cholecalciferol, Vitamin D3, 50 mcg (2,000 unit) cap Take 1 capsule by mouth once daily. - buPROPion XL (WELLBUTRIN XL) 300 mg 24 hr tablet Take 1 tablet by mouth once daily. - propranolol (INDERAL) 20 mg tablet Take 1 tablet by mouth twice daily. - busPIRone (BUSPAR) 15 mg tablet Take 1 tablet by mouth three times daily. Problem List As Of Date 09/26/2023 Noted Resolved Anxiety [F41.9] 11/27/2014 Mood disorder (HCC) [F39] 11/27/2014 Back ache [M54.9] 11/27/2014 Depression [F32.A] 11/27/2014 Bipolar I disorder, most recent episode (or cur*01/17/2015 Obese [E66.9] 01/17/2015 Panic disorder without agoraphobia [F41.0] 01/17/2015 Obstructive sleep apnea [G47.33] 02/23/2016 Acquired hypothyroidism [E03.9] 04/07/2016 Drug use affecting in first trimester*06/01/2018 History of recurrent miscarriages [N96] 06/01/2018 Maternal tobacco use in first trimester [O99.33*06/01/2018 Substance abuse (HCC) [F19.10] 09/08/2018 Request for sterilization [Z30.2] 11/21/2018 Anemia during in third trimester [O99*11/28/2018 Abnormal glucose complicating [O99.81*11/28/2018 Excessive growth affecting management of *12/09/2018 01/11/2019 Polyhydramnios in third trimester [O40.3XX0] 12/09/2018 Obesity, Class III, BMI >= 40 [E66.01] 06/09/2019 Prescriptions ordered this encounter Disp Refills Start End METFORMIN 500 MG TABLET 30 t* 5 09/26/2023 Route: ORAL Sig: Take 1 tablet by mouth daily with breakfast. Medications Discontinued During This Encounter Prescriptions - metFORMIN ER (FORTAMET) 500 mg 24 hr tablet (Discontinued) Take 1 tablet by mouth daily with breakfast. Encounter Status:Closed by GÉNESIS MEZA on 09/27/[address] [facility] 25(OH)D3 SerPl-mCncon 2023 25-hydroxyvitamin D3 [Mass/Vol] 30.7 ng/mL Low 31.0-80.0 [facility] Comment on above: Order Comment: Speci men Type: BLOOD SPECIMENOrdering Facility: [facility] Address: [address] [place] [address] Performed By: #### 1 989-3 ####[facility] LABCLIA [id number] [place] [address] [place] CBC W Auto Differential pane l (Bld)on 09-21-2023 Basophils (Bld) [#/Vol] 0.03 10*3/uL Normal <0.11 [facility] Comment on above: Order Comment: Speci men Type: BLOOD SPECIMENOrdering Facility: [facility] Address: [address] [place] [address] Performed By: #### 4 537-7, 88252-5 ####[facility] LABCLIA [id number] [place] [address] [place] Basophils/100 WBC (Bld) 0.4 % Normal [facility] Comment on above: Order Comment: Speci men Type: BLOOD SPECIMENOrdering Facility: [facility] Address: [address] [place] [address] Performed By: #### 4 537-7, 98618-0 ####[facility] LABCLIA [id number] [place] [address] [place] Differential cell count method Nom (Bld) Auto Normal [facility] Comment on above: Order Comment: Speci men Type: BLOOD SPECIMENOrdering Facility: [facility] Address: [address] [place] [address] Performed By: #### 4 537-7, 42719-2 ####[facility] LABCLIA [id number] [place] [address] [place] Eosinophils (Bld) [#/Vol] 0.08 10*3/uL Normal <0.46 [facility] Comment on above: Order Comment: Speci men Type: BLOOD SPECIMENOrdering Facility: [facility] Address: [address] [place] [address] Performed By: #### 4 537-7, 41509-9 ####[facility] LABCLIA [id number] [place] [address] [place] Eosinophils/100 WBC (Bld) 1.1 % Normal [facility] Comment on above: Order Comment: Speci men Type: BLOOD SPECIMENOrdering Facility: [facility] Address: [address] [place] [address] Performed By: #### 4 537-7, 21124-7 ####[facility] LABCLIA [id number] [place] [address] [place] Erythrocyte distribution width (RBC) [Ratio] 14.0 % Normal 11.5-15.0 [facility] Comment on above: Order Comment: Speci men Type: BLOOD SPECIMENOrdering Facility: [facility] Address: [address] [place] [address] Performed By: #### 4 537-7, 58418-0 ####[facility] LABCLIA [id number] [place] [address] [place] Hematocrit (Bld) [Volume fraction] 38.2 % Normal 36.0-46.0 [facility] Comment on above: Order Comment: Speci men Type: BLOOD SPECIMENOrdering Facility: [facility] Address: [address] [place] [address] Performed By: #### 4 537-7, 01925-0 ####[facility] LABCLIA [id number] [place] [address] [place] Hemoglobin (Bld) [Mass/Vol] 12.1 g/dL Normal 11.5-15.5 [facility] Comment on above: Order Comment: Speci men Type: BLOOD SPECIMENOrdering Facility: [facility] Address: [address] [place] [address] Performed By: #### 4 537-7, 97604-7 ####[facility] LABCLIA [id number] [place] [address] [place] Immature granulocytes (Bld) [#/Vol] 0.07 10*3/uL Normal <0.10 [facility] Comment on above: Order Comment: Speci men Type: BLOOD SPECIMENOrdering Facility: [facility] Address: [address] [place] [address] Performed By: #### 4 537-7, 83742-9 ####[facility] LABIA [id number] [place] [address] [place] Immature granulocytes/100 WBC (Bld) 1.0 % Normal [facility] Comment on above: Order Comment: Speci men Type: BLOOD SPECIMENOrdering Facility: [facility] Address: [address] [place] [address] Performed By: #### 4 537-7, 94211-3 ####[facility] LABIA [id number] [place] [address] [place] Lymphocytes (Bld) [#/Vol] 2.61 10*3/uL Normal 1.00-4.00 [facility] Comment on above: Order Comment: Speci men Type: BLOOD SPECIMENOrdering Facility: [facility] Address: [address] [place] [address] Performed By: #### 4 537-7, 90321-9 ####[facility] LABCLIA [id number] [place] [address] [place] Lymphocytes/100 WBC (Bld) 36.1 % Normal [facility] Comment on above: Order Comment: Speci men Type: BLOOD SPECIMENOrdering Facility: [facility] Address: [address] [place] [address] Performed By: #### 4 537-7, 39814-7 ####[facility] LABCLIA [id number] [place] [address] [place] MCH (RBC) [Entitic mass] 29.0 pg Normal 26.0-34.0 [facility] Comment on above: Order Comment: Speci men Type: BLOOD SPECIMENOrdering Facility: [facility] Address: [address] [place] [address] Performed By: #### 4 537-7, 92703-9 ####[facility] LABCLIA [id number] [place] [address] [place] MCHC (RBC) [Mass/Vol] 31.7 g/dL Normal 30.5-36.0 [facility] Comment on above: Order Comment: Speci men Type: BLOOD SPECIMENOrdering Facility: [facility] Address: [address] [place] [address] Performed By: #### 4 537-7, 90945-8 ####[facility] LABIA [id number] [place] [address] [place] MCV (RBC) [Entitic vol] 91.6 fL Normal 80.0-100.0 [facility] Comment on above: Order Comment: Speci men Type: BLOOD SPECIMENOrdering Facility: [facility] Address: [address] [place] [address] Performed By: #### 4 537-7, 57924-2 ####[facility] LABCLIA [id number] [place] [address] [place] Monocytes (Bld) [#/Vol] 0.45 10*3/uL Normal <0.87 [facility] Comment on above: Order Comment: Speci men Type: BLOOD SPECIMENOrdering Facility: [facility] Address: [address] [place] [address] Performed By: #### 4 537-7, 39675-8 ####[facility] LABCLIA [id number] [place] [address] [place] Monocytes/100 WBC (Bld) 6.2 % Normal [facility] Comment on above: Order Comment: Speci men Type: BLOOD SPECIMENOrdering Facility: [facility] Address: [address] [place] [address] Performed By: #### 4 537-7, 13234-5 ####[facility] LABCLIA [id number] [place] [address] [place] Neutrophils (Bld) [#/Vol] 3.98 10*3/uL Normal 1.45-7.50 [facility] Comment on above: Order Comment: Speci men Type: BLOOD SPECIMENOrdering Facility: [facility] Address: [address] [place] [address] Performed By: #### 4 537-7, 05130-9 ####[facility] LABCLIA [id number] [place] [address] [place] Neutrophils/100 WBC (Bld) 55.2 % Normal [facility] Comment on above: Order Comment: Speci men Type: BLOOD SPECIMENOrdering Facility: [facility] Address: [address] [place] [address] Performed By: #### 4 537-7, 50510-7 ####[facility] LABCLIA [id number] [place] [address] [place] Nucleated RBC (Bld) [#/Vol] 10*3/uL Normal <0.01 [facility] Comment on above: Order Comment: Speci men Type: BLOOD SPECIMENOrdering Facility: [facility] Address: [address] [place] [address] Performed By: #### 4 537-7, 48939-0 ####[facility] LABIA [id number] [place] [address] [place] Nucleated RBC/100 WBC (Bld) [Ratio] 0.0 /[address] [facility] Comment on above: Order Comment: Speci men Type: BLOOD SPECIMENOrdering Facility: [facility] Address: [address] [place] [address] Performed By: #### 4 537-7, 23500-0 ####[facility] LABIA [id number] [place] [address] [place] Platelet mean volume (Bld) [Entitic vol] 10.5 fL Normal 9.0-12.7 [facility] Comment on above: Order Comment: Speci men Type: BLOOD SPECIMENOrdering Facility: [facility] Address: [address] [place] [address] Performed By: #### 4 537-7, 63490-5 ####[facility] LABIA [id number] [place] [address] [place] Platelets (Bld) [#/Vol] 257 10*3/uL Normal 150-400 [facility] Comment on above: Order Comment: Speci men Type: BLOOD SPECIMENOrdering Facility: [facility] Address: [address] [place] [address] Performed By: #### 4 537-7, 10876-4 ####[facility] LABIA [id number] [place] [id number] [place] RBC (Bld) [#/Vol] 4.17 10*6/uL Normal 3.90-5.20 [facility] Comment on above: Order Comment: Speci men Type: BLOOD SPECIMENOrdering Facility: [facility] Address: [address] [place] [address] Performed By: #### 4 537-7, 73905-3 ####[facility] LABCLIA [id number] [place] [id number] [place] WBC (Bld) [#/Vol] 7.22 10*3/uL Normal 3.70-11.00 [facility] Comment on above: Order Comment: Speci men Type: BLOOD SPECIMENOrdering Facility: [facility] Address: [address] [place] [address] Performed By: #### 4 537-7, 89067-8 ####[facility] LABIA [id number] [place] [address] [place] CRP SerPl-ncon 09-21-2023 CRP [Mass/Vol] 1.4 mg/dL High <0.9 [facility] Comment on above: Order Comment: Speci men Type: BLOOD SPECIMENOrdering Facility: [facility] Address: [address] [place] [address] Performed By: #### 2 276-4, 1987-5, 3016-3, 23050-2 ####[facility] [id number] [place] [address] [place] ESR Westergren method (Bld) [Velocity]on 09-21-2023 ESR (Bld) [Velocity] 29 mm/h High 0-20 [facility] Comment on above: Order Comment: Speci men Type: BLOOD SPECIMENOrdering Facility: [facility] Address: [address] [place] [address] Performed By: #### 4 537-7, 90196-7 ####[facility] LABIA [id number] [place] [address] [place] Ferritin SerPl-mCncon 2023 Ferritin [Mass/Vol] 110.0 ng/mL Normal 14.7-205.1 [facility] Comment on above: Order Comment: Speci men Type: BLOOD SPECIMENOrdering Facility: [facility] Address: [address] [place] [address] Performed By: #### 2 276-4, 1988-5, 3016-3, 72475-3 ####[facility] LABIA [id number] [place] [address] [place] HbA1c (Bld)on 09-21-2023 Average glucose Estimated from glycated hemoglobin (Bld) [Mass/Vol] 114 mg/dL Normal [facility] Comment on above: Order Comment: Specmalachi men Type: BLOOD SPECIMENOrdering Facility: [facility] Address: [address] [place] [address] Result Comment: eAG: (Estimated average glucose) is a calculated value from HgbA1c and is sales representative electric service of the average blood glucose level in the last 2-3 month period. Performed By: #### 5 5454-3 ####[facility] [id number] [address] STATES OF [facility] HbA1c (Bld) [Mass fraction] 5.6 % Normal 4.3-5.6 [facility] Comment on above: Order Comment: Shanda ignacio Type: BLOOD SPECIMENOrdering Facility: [facility] Address: [address] [place] [address] Result Comment: Amer [place] Diabetes Association guidelines indicate that patients with HgbA1c in the range 5.7-6.4% are at increased risk for development of diabetes, and intervention by lifestyle modification may be beneficial. HgbA1c greater or equal to 6.5% is considered diagnostic of diabetes. Performed By: #### 5 5454-3 ####[facility] LABIA [id number] [place] [address] [place] Iron and Iron binding capaci ty panelon 09-21-2023 Iron [Mass/Vol] 75 ug/dL Normal 41-186 [facility] Comment on above: Order Comment: Shanda ignacio Type: BLOOD SPECIMENOrdering Facility: [facility] Address: [address] [place] [address] Performed By: #### 3 053-6, 3024-7, 36053-1, 15547-8 ####[facility] LABCLIA [id number] [address] [address] [place] Iron binding capacity [Mass/Vol] 254 ug/dL Normal 232-386 [facility] Comment on above: Order Comment: Speci men Type: BLOOD SPECIMENOrdering Facility: [facility] Address: [address] [place] [address] Performed By: #### 3 053-6, 3024-7, 78465-3, 68267-6 ####[facility] LABCL[facility] [id number] [place] [id number] [place] Iron/TIBC [Molar ratio] 29.5 % Normal 15.0-57.0 [facility] Comment on above: Order Comment: Speci men Type: BLOOD SPECIMENOrdering Facility: [facility] Address: [address] [place] [address] Performed By: #### 3 053-6, 3024-7, 62573-3, 64434-7 ####[facility] LABIA [id number] [place] [id number] [place] Lipid 1996 panelon 4 Cholesterol [Mass/Vol] 190 mg/dL Normal <200 [facility] Comment on above: Order Comment: Speci men Type: BLOOD SPECIMENOrdering Facility: [facility] Address: [address] [place] [address] Result Comment: <200 mg/dL, Desirable 200-239 mg/dL, Borderline high >239 mg/dL, High Performed By: #### 3 053-6, 3024-7, 82439-2, 85152-0 ####[facility] LABIA [id number] [place] [id number] [place] Cholesterol in HDL [Mass/Vol] 44 mg/dL Normal >39 [facility] Comment on above: Order Comment: Speci men Type: BLOOD SPECIMENOrdering Facility: [facility] Address: [address] [place] [address] Result Comment: 40-5 9 mg/dL, Acceptable >59 mg/dL, High: Negative risk factor for coronary heart disease <40 mg/dL, Low: Positive risk factor for coronary heart disease Performed By: #### 3 053-6, 3024-7, 31321-1, 99835-4 ####[facility] LABCLIA [id number] [facility] [address] [address] [place] Cholesterol in LDL [Mass/Vol] 128 mg/dL High <100 [facility] Comment on above: Order Comment: Speci men Type: BLOOD SPECIMENOrdering Facility: [facility] Address: [address] [place] [address] Result Comment: <100 mg/dL, Optimal 100-129 mg/dL, Near optimal/above optimal 130-159 mg/dL, Borderline high 160-189 mg/dL, High >189 mg/dL, Very high Secondary prevention optimal LDL Cholesterol levels are recommended to be < 70 mg/dL Performed By: #### 3 053-6, 3024-7, 07851-5, 50355-4 ####[facility]CLIA [id number] [place] [address] [place] Cholesterol in LDL/Cholesterol in HDL [Mass ratio] 2.91 {ratio} High <2.54 [facility] Comment on above: Order Comment: Speci men Type: BLOOD SPECIMENOrdering Facility: [facility] Address: [address] [place] [address] Result Comment: Refgia rahman: 1. National Cholesterol Education Program ATP III Guideline At-A-Glance Quick Desk Reference: National Heart, Lung, and Blood [place]. National Institutes of Health. 2001: NIH Publication No. 01-3305. 2. An International Atherosclerosis Society position paper: global recommendations for the management of dyslipidemia: executive summary, Atherosclerosis. 2014: 232(2):410-413. Performed By: #### 3 053-6, 3024-7, 76580-1, 09468-8 ####[facility]CL[facility] [id number] [place] [id number] [place] Cholesterol in VLDL [Mass/Vol] 18 mg/dL Normal <30 [facility] Comment on above: Order Comment: Speci men Type: BLOOD SPECIMENOrdering Facility: [facility] Address: [address] [place] [address] Performed By: #### 3 053-6, 3024-7, 33860-1, 03624-5 ####[facility]CL[facility] [id number] [place] [address] [place] Cholesterol non HDL [Mass/Vol] 146 mg/dL High <130 [facility] Comment on above: Order Comment: Speci men Type: BLOOD SPECIMENOrdering Facility: [facility] Address: [address] [place] [address] Result Comment: <130 mg/dL, Optimal 130-159 mg/dL, Near optimal/above optimal 160-189 mg/dL, Borderline high 190-219 mg/dL, High >219 mg/dL, Very high Secondary prevention optimal non HDL Cholesterol levels are recommended to be <100 mg/dL Performed By: #### 3 053-6, 3024-7, 46050-7, 86769-9 ####[facility] [id number] [place] [address] [place] Cholesterol.total/Ch olesterol in HDL [Mass ratio] 4.32 {ratio} Normal <5.10 [facility] Comment on above: Order Comment: Speci men Type: BLOOD SPECIMENOrdering Facility: [facility] Address: [address] [place] [address] Performed By: #### 3 053-6, 3024-7, 08932-1, 68938-6 ####[facility] [id number] [place] [address] [place] FASTING TIME [address] [facility] Comment on above: Order Comment: Speci men Type: BLOOD SPECIMENOrdering Facility: [facility] Address: [address] [place] [address] Performed By: #### 3 053-6, 3024-7, 34066-2, 77978-7 ####[facility] [id number] [place] [id number] [place] Triglyceride [Mass/Vol] 89 mg/dL Normal <150 [facility] Comment on above: Order Comment: Speci men Type: BLOOD SPECIMENOrdering Facility: [facility] Address: [address] [place] [address] Result Comment: <150 mg/dL, Normal 150-199 mg/dL, Borderline high 200-499 mg/dL, High >499 mg/dL, Very high Performed By: #### 3 053-6, 3024-7, 80403-2, 57998-1 ####[facility] [id number] [place] [address] [place] Magnesium SerPl-mCncon 09-20 Magnesium [Mass/Vol] 2.2 mg/dL Normal 1.7-2.3 [facility] Comment on above: Order Comment: Speci men Type: BLOOD SPECIMENOrdering Facility: [facility] Address: [address] [place] [address] Performed By: #### 2 276-4, 1987-5, 3016-3, 38104-3 ####[facility] [id number] [place] [address] [place] T3 SerPl-mCncon 09-21-2023 T3 [Mass/Vol] 173 ng/dL High 79-165 [facility] Comment on above: Order Comment: Speci men Type: BLOOD SPECIMENOrdering Facility: [facility] Address: [address] [place] [address] Performed By: #### 3 053-6, 3024-7, 37179-8, 93160-3 ####[facility] [id number] [place] [address] [place] T4 Free SerPl-mCncon 024 Free T4 [Mass/Vol] 1.1 ng/dL Normal 0.9-1.7 [facility] Comment on above: Order Comment: Shanda ignacio Type: BLOOD SPECIMENOrdering Facility: [facility] Address: [address] [place] [address] Performed By: #### 3 053-6, 3024-7, 28062-3, 20439-1 ####[facility] [id number] [place] [address] [place] TSH SerPl-aCncon 09-21-2023 TSH Qn 1.700 m[IU]/L Normal 0.270-4.200 [facility] Comment on above: Order Comment: Shanda ignacio Type: BLOOD SPECIMENOrdering Facility: [facility] Address: [address] [place] [address] Result Comment: If t he patient is , TSH reference range varies by gestational period: First Trimester (weeks 9-12): 0.180-2.990 mIU/L Second Trimester: 0.110-3.980 mIU/L Third Trimester: 0.480-4.710 mIU/L Max Ricci et al. A Practical Approach for the Verifications and Determination of Site- and Trimester-Specific Reference Intervals for Thyroid Function tests in . Thyroid, 2019:29:3:412-420. Rey Kim, et al. 2017 Guidelines of the [place] Thyroid Association for the Diagnosis and Management of Thyroid Disease during and the . Thyroid, 2017:27:3:315-389. Performed By: #### 2 276-4, 1987-5, 3016-3, 62736-4 ####[facility] LABIA [id number] [place] [id number] [place] CNOVon 09-06-2023 CNOV Office Visit (FAMPWS ) SWATHI WAHL ([id number]) 1990 F Date Time Provider Department 09/06/23 8:40 AM URSULA BE During your visit today, we recorded the following information about you: Pulse Respiration Blood pressure Weight 87/minute 16/minute 104/80 152.4 kg Ursula Be APRN.INSURANCE AGENCY MANAGER 09/06/2023 10:32 AM Signed This is a 32 year old female who presents today with: Patient presents with: Yearly Exam Ear Pain: R ear with clear drainage x5 days; no fever/sore throat; HISTORY OF PRESENT ILLNESS: Swathi Wahl is a 32 year old female. Patient presents with: Yearly Exam Ear Pain: R ear with clear drainage x5 days; no fever/sore throat; Pt presents today with complaint of possible ear infection. Started about 5 days ago. More swollen in the mornings. Right ear -- sleeps on that side. + painful. Hearing is muffled. No recent sickness. She hasn't had labs in awhile. Hx of anemia. HYPOTHYROID: Patient is compliant with medications: Yes Patient has changes in energy: always fatigued. Patient has changes in hair or skin: No Patient has temperature intolerance: No Patient has weight changes: No Pain Has been taking naproxen and ibuprofen, which hasn't been helping. Wrists and back. 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 Inflammatory markers were elevated on last check, but did not recheck. 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 In [facility] program. 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 thyroid, pork, (ARMOUR THYROID) 60 mg tablet Take 1 tablet by mouth once daily. thyroid (ARMOUR THYROID) 15 mg tablet Take 1 tablet by mouth once daily. Take with 60 mg dose for total daily dose of [address] (PROTONIX) 40 mg tablet Take 1 tablet by mouth daily before breakfast. Take on empty stomach, 1/2 hr before meal. VYVANSE 30 mg capsule VYVANSE 40 mg capsule gabapentin (NEURONTIN) 300 mg capsule Take 1 capsule by mouth twice daily. Cholecalciferol, Vitamin D3, 50 mcg (2,000 unit) cap Take 1 capsule by mouth once daily. naproxen (NAPROSYN) 500 mg tablet Take 1 tablet by mouth twice daily. Take with food. buPROPion XL (WELLBUTRIN XL) 300 mg 24 hr tablet Take 1 tablet by mouth once daily. busPIRone (BUSPAR) 15 mg tablet Take 1 tablet by mouth three times daily. atomoxetine (STRATTERA) 25 mg capsule Take 1 capsule by mouth once daily. VIVITROL 380 mg injection 380 mg once every month. propranolol (INDERAL) 20 mg tablet Take 1 tablet by mouth twice daily. No current facility-administered medications for this visit. FAMILY HISTORY Problem Relation Age of Onset Diabetes Father Glaucoma Mother Diabetes Mother Kidney Disease Mother Stroke Mother Thyroid Mother hypo Heart Brother Cancer Maternal Grandmother Alcohol/Drug Paternal Grandmother Heart Paternal Grandfather Alcohol/Drug Paternal Aunt Alcohol/Drug Paternal Uncle Breast Cancer Other 2nd cousins Breast Cancer Other 2nd cousins Cervical Cancer Other 2nd cousins Cervical Cancer Other 2nd cousins Cervical Cancer Other 2nd cousins Social History Tobacco Use Smoking status: Former Types: Cigarettes Quit date: 01/28/2022 Years since quittin.6 Smokeless tobacco: Never Tobacco comments: half a pack daily Substance Use Topics Alcohol use: Yes Comment: rarely Drug use: No EXAM: BP 104/80 Pulse 87 Resp 16 Wt (!) 152.4 kg (336 lb) LMP 04/14/2023 (Approximate) SpO2 96% BMI 54.23 kg/m? PHYSICAL EXAM: General Appearance: Well appearing, alert, in no acute distress, well-hydrated, well nourished.. Skin: Skin color, texture, turgor normal, no suspicious rashes or lesions. Head: Normocephalic, no masses, lesions, tenderness or abnormalities. Eyes: Anicteric sclera. Pupils are equally round and reactive to light. Extraocular movements are intact. . Ears: External ears normal, canals clear, Positive findings: erythema and edema of ear canal: on right. Oropharynx: Lips, mucosa, and tongue normal, teeth and gums normal, oropharynx normal. Neck: Supple, no adenopathy; thyroid symmetric, normal size. Lungs: Lungs clear to auscultation. No wheezing, rhonchi, rales.. Heart: RRR without murmur, gallop, or rubs. No ectopy. Abdomen: Abdome (more content not included)... Normal [facility] CNOVon 04-15-2023 CNOV Office Visit (UCWSTR ) SWATHI WAHL ([id number]) 1990 F Date Time Provider Department 04/15/23 10:15 AM PAOLO MAGAÑA [facility] During your visit today, we recorded the following information about you: Temperature Pulse Respiration Blood pressure 98.1 degrees 84/minute 16/minute 118/64 Weight Last Period 154 kg 04/14/23 Paolo Magaña APRN.INSURANCE AGENCY MANAGER 04/15/2023 10:34 AM Signed Subjective HPI Nontoxic-appearing female presents urgent care chief plaint possible conjunctivitis. Duration of symptom 1 day. Associated symptoms eye redness and drainage. Patient states eye was matted shut upon arising this morning. History of pinkeye this feels similar. Sick contacts similar signs symptoms. Did use Polytrim this morning that was leftover. No other OTC medication use. No eye trauma flashes light floaters visual changes pain with EOMs contact lens use. Denies any fever body aches chills productive cough chest pain shortness of breath pleuritic pain hemoptysis nausea vomiting abdominal pain change in bowel or bladder habits. Past medical history prescription medication use and allergies reviewed. .Patient presents with: Conjunctivitis: Possibly pink x1day. 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 In [facility] program. 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 thyroid (ARMOUR THYROID) 15 mg tablet Take 1 tablet by mouth once daily. Take with 60 mg dose for total daily dose of [address] (PROTONIX) 40 mg tablet Take 1 tablet by mouth daily before breakfast. Take on empty stomach, 1/2 hr before meal. VYVANSE 30 mg capsule VYVANSE 40 mg capsule gabapentin (NEURONTIN) 300 mg capsule Take 1 capsule by mouth twice daily. atomoxetine (STRATTERA) 25 mg capsule Take 1 capsule by mouth once daily. Cholecalciferol, Vitamin D3, 50 mcg (2,000 unit) cap Take 1 capsule by mouth once daily. lamoTRIgine (LAMICTAL) 25 mg tablet Take 3 tablets by mouth daily at bedtime. (Patient taking differently: Take 25 mg by mouth two times a day.) naproxen (NAPROSYN) 500 mg tablet Take 1 tablet by mouth twice daily. Take with food. VIVITROL 380 mg injection 380 mg once every month. buPROPion XL (WELLBUTRIN XL) 300 mg 24 hr tablet Take 1 tablet by mouth once daily. propranolol (INDERAL) 20 mg tablet Take 1 tablet by mouth twice daily. busPIRone (BUSPAR) 15 mg tablet Take 1 tablet by mouth three times daily. FAMILY HISTORY Problem Relation Age of Onset Diabetes Father Glaucoma Mother Diabetes Mother Kidney Disease Mother Stroke Mother Thyroid Mother hypo Heart Brother Cancer Maternal Grandmother Alcohol/Drug Paternal Grandmother Heart Paternal Grandfather Alcohol/Drug Paternal Aunt Alcohol/Drug Paternal Uncle Breast Cancer Other 2nd cousins Breast Cancer Other 2nd cousins Cervical Cancer Other 2nd cousins Cervical Cancer Other 2nd cousins Cervical Cancer Other 2nd cousins Social History Tobacco Use Smoking status: Former Types: Cigarettes Quit date: 01/28/2022 Years since quittin.2 Smokeless tobacco: Never Tobacco comments: half a pack daily Substance Use Topics Alcohol use: Yes Comment: rarely Drug use: No BP 118/64 Pulse 84 Temp 36.7 ?C (98.1 ?F) Resp 16 Wt (!) 154 kg (339 lb 6.4 oz) LMP 04/14/2023 (Approximate) SpO2 96% BMI 54.78 kg/m? Review of Systems Constitutional: Negative for chills, fever and malaise/fatigue. HENT: Negative for congestion, ear discharge, ear pain, sinus pain and sore throat. Eyes: Positive for discharge and redness. Negative for blurred vision, double vision, photophobia and pain. Respiratory: Negative for cough, hemoptysis, sputum production, shortness of breath, wheezing and stridor. Cardiovascular: Negative for chest pain. Gastrointestinal: Negative for abdominal pain, diarrhea, nausea and vomiting. Musculoskeletal: Negative for myalgias. Skin: Negative for itching and rash. Neurological: Negative for dizziness and headaches. Objective Physical Exam Constitutional: General: She is not in acute distress. Appearance: She is not toxic-appearing. HENT: Head: Normocephalic. Nose: Nose normal. Mouth/Throat: Mouth: Mucous membranes are moist. Pharynx: Oropharynx is clear. No oropharyngeal exudate or posterior oropharyngeal erythema. (more content not included)... Normal [facility] .Auto Diffon 10-17-2020 Basophil, Absolute 0.10 10 3/mcL Normal 0.00-0.19 [facility] ([place]) Comment on above: Performed By: #### A DIFF, CBC, ANEU, ALC, BMP #### [address] [address] #### GFR #### [address] [address] Basophils/100 WBC (Bld) 0.9 % Normal 0.0-2.5 [facility] ([place]) Comment on above: Performed By: #### A DIFF, CBC, ANEU, ALC, BMP #### [address] [address] #### GFR #### [address] [address] Eosinophil, Absolute 0.10 10 3/mcL Normal 0.00-0.40 [facility] ([place]) Comment on above: Performed By: #### A DIFF, CBC, ANEU, ALC, BMP #### [address] [address] #### GFR #### [address] [address] Eosinophils/100 WBC (Bld) 1.6 % Normal 0.0-7.0 [facility] ([place]) Comment on above: Performed By: #### A DIFF, CBC, ANEU, ALC, BMP #### [address] [address] #### GFR #### [address] [address] Lymphocyte, Absolute 2.70 10 3/mcL Normal 0.77-3.85 [facility] ([place]) Comment on above: Performed By: #### A DIFF, CBC, ANEU, ALC, BMP #### [address] [address] #### GFR #### [address] [address] Lymphocytes/100 WBC (Bld) 32.6 % Normal 10.0-50.0 [facility] ([place]) Comment on above: Performed By: #### A DIFF, CBC, ANEU, ALC, BMP #### [place] [address] #### GFR #### [address] [address] Monocyte, Absolute 0.60 10 3/mcL Normal 0.15-1.00 [facility] ([place]) Comment on above: Performed By: #### A DIFF, CBC, ANEU, ALC, BMP #### [address] [address] #### GFR #### [address] [address] Monocytes/100 WBC (Bld) 7.5 % Normal 1.7-13.0 [facility] ([place]) Comment on above: Performed By: #### A DIFF, CBC, ANEU, ALC, BMP #### [address] [address] #### GFR #### [address] [address] Neutrophils/100 WBC (Bld) 57.4 % Normal 37.0-80.0 [facility] ([place]) Comment on above: Performed By: #### A DIFF, CBC, ANEU, ALC, BMP #### [address] [address] #### GFR #### [address] [address] .GFRon 10-17-2020 GFR 109 ml/min/1.73sqm Normal [facility] ([place]) Comment on above: Result Comment: GFR Population mean for , Non- Americans Ages 20-29 = 116 mL/min/1.73 sq.m. Ages 30-39 = 107 mL/min/1.73 sq.m. Ages 40-49 = 99 mL/min/1.73 sq.m. Ages 50-59 = 93 mL/min/1.73 sq.m. Ages 60-69 = 85 mL/min/1.73 sq.m. Ages 70+ = 75 mL/min/1.73 sq.m. Chronic Kidney Disease: Less than 60 mL/min/1.73 square meters End Stage Renal Disease: Less than 15 mL/min/1.73 square meters Performed By: #### A DIFF, CBC, ANEU, ALC, BMP #### [address] [address] #### GFR #### [address] [address] GFR Non- 90 ml/min/1.73sqm Normal [facility] ([place]) Comment on above: Result Comment: GFR Population mean for , Non- Americans Ages 20-29 = 116 mL/min/1.73 sq.m. Ages 30-39 = 107 mL/min/1.73 sq.m. Ages 40-49 = 99 mL/min/1.73 sq.m. Ages 50-59 = 93 mL/min/1.73 sq.m. Ages 60-69 = 85 mL/min/1.73 sq.m. Ages 70+ = 75 mL/min/1.73 sq.m. Chronic Kidney Disease: Less than 60 mL/min/1.73 square meters End Stage Renal Disease: Less than 15 mL/min/1.73 square meters Performed By: #### A DIFF, CBC, ANEU, ALC, BMP #### [place] [address] #### GFR #### [place] [address] .NEUABSon 10-17-2020 Neutrophil, Absolute 4.80 10 3/mcL Normal 2.85-6.16 [facility] ([place]) Comment on above: Performed By: #### A DIFF, CBC, ANEU, ALC, BMP #### [place] [address] #### GFR #### [place] [address] Nicole 10-17-2020 Ethanol Level 45 mg/dL High 0-3 [facility] ([place]) Comment on above: Performed By: #### A DIFF, CBC, ANEU, ALC, BMP #### [place] [address] #### GFR #### [place] [address] BMPon 10-17-2020 BUN/Creatinine Ratio 19 ratio Normal 7-27 [facility] ([place]) Comment on above: Performed By: #### A DIFF, CBC, ANEU, ALC, BMP #### [place] [address] #### GFR #### [place] [address] Calcium [Mass/Vol] 9.0 mg/dL Normal 8.4-10.2 [facility] ([place]) Comment on above: Performed By: #### A DIFF, CBC, ANEU, ALC, BMP #### [address] [address] #### GFR #### [address] [address] Chloride [Moles/Vol] 103 mmol/L Normal 98-107 [facility] ([place]) Comment on above: Performed By: #### A DIFF, CBC, ANEU, ALC, BMP #### [address] [address] #### GFR #### [address] [address] CO2 [Moles/Vol] 24 mmol/L Normal 22-29 [facility] ([place]) Comment on above: Performed By: #### A DIFF, CBC, ANEU, ALC, BMP #### [address] [address] #### GFR #### [address] [address] Creatinine [Mass/Vol] 0.75 mg/dL Normal 0.55-1.02 [facility] ([place]) Comment on above: Performed By: #### A DIFF, CBC, ANEU, ALC, BMP #### [address] [address] #### GFR #### [address] [address] Electrolyte Balance 12.0 mEq/L [facility] ([place]) Comment on above: Performed By: #### A DIFF, CBC, ANEU, ALC, BMP #### [address] [address] #### GFR #### [address] [address] Glucose [Mass/Vol] 100 mg/dL Normal 70-105 [facility] ([place]) Comment on above: Performed By: #### A DIFF, CBC, ANEU, ALC, BMP #### [address] [address] #### GFR #### [address] [address] Potassium [Moles/Vol] 4.5 mmol/L Normal 3.5-5.1 [facility] ([place]) Comment on above: Performed By: #### A DIFF, CBC, ANEU, ALC, BMP #### [address] [address] #### GFR #### [address] [address] Sodium [Moles/Vol] 139 mmol/L Normal 136-145 [facility] ([place]) Comment on above: Performed By: #### A DIFF, CBC, ANEU, ALC, BMP #### [address] [address] #### GFR #### [place] [address] Urea nitrogen [Mass/Vol] 14 mg/dL Normal 7-18 [facility] ([place]) Comment on above: Performed By: #### A DIFF, CBC, ANEU, ALC, BMP #### [place] [address] #### GFR #### [place] [address] CBCon 10-17-2020 Erythrocyte distribution width (RBC) [Ratio] 14.7 % High 11.5-14.5 [facility] ([place]) Comment on above: Performed By: #### A DIFF, CBC, ANEU, ALC, BMP #### [place] [address] #### GFR #### [place] [address] Hematocrit (Bld) [Volume fraction] 42.7 % Normal 37.0-47.0 [facility] ([place]) Comment on above: Performed By: #### A DIFF, CBC, ANEU, ALC, BMP #### [place] [address] #### GFR #### [place] [address] Hgb 14.3 G/dL Normal 12.0-16.0 [facility] ([place]) Comment on above: Performed By: #### A DIFF, CBC, ANEU, ALC, BMP #### [address] [address] #### GFR #### [address] [address] MCH (RBC) [Entitic mass] 31.5 pg High 27.0-31.2 [facility] ([place]) Comment on above: Performed By: #### A DIFF, CBC, ANEU, ALC, BMP #### [place] [address] #### GFR #### [address] [address] MCHC 33.4 G/dL Normal 33.0-37.0 [facility] ([place]) Comment on above: Performed By: #### A DIFF, CBC, ANEU, ALC, BMP #### [place] [address] #### GFR #### [place] [address] MCV (RBC) [Entitic vol] 94.2 fL High 80.0-94.0 [facility] ([place]) Comment on above: Performed By: #### A DIFF, CBC, ANEU, ALC, BMP #### [place] [address] #### GFR #### [address] [address] Platelet 227 10 3/mcL Normal 130-400 [facility] ([place]) Comment on above: Performed By: #### A DIFF, CBC, ANEU, ALC, BMP #### [place] [address] #### GFR #### [address] [address] Platelet mean volume (Bld) [Entitic vol] 8.5 fL Normal 7.4-10.4 [facility] ([place] Comment on above: Performed By: #### A DIFF, CBC, ANEU, ALC, BMP #### [place] [address] #### GFR #### [place] [address] RBC 4.54 10 6/mcL Normal 4.20-5.40 [facility] ([place] Comment on above: Performed By: #### A DIFF, CBC, ANEU, ALC, BMP #### [address] [address] #### GFR #### [place] [address] WBC 8.40 10 3/mcL Normal 4.60-10.80 [facility] ([place] Comment on above: Performed By: #### A DIFF, CBC, ANEU, ALC, BMP #### [address] [address] #### GFR #### [place] [address] [id number] 10-17-2020 Date of Onset [id number] Invalid Interpretation Code [facility] ([place]) Comment on above: Performed By: #### C OVD19 #### [place] [address] Employed in Healthcare No [facility] ([place] Comment on above: Performed By: #### C OVD19 #### [place] [address] First Test No [facility] ([place] Comment on above: Performed By: #### C OVD19 #### [place] [address] Hospitalized No [facility] ([place] Comment on above: Performed By: #### C OVD19 #### [place] [address] ICU No [facility] ([place] Comment on above: Performed By: #### C OVD19 #### [place] [address] Not [facility] ([place] Comment on above: Performed By: #### C OVD19 #### [place] [address] Resides in Congregate Care Setting No [facility] ([place] Comment on above: Performed By: #### C OVD19 #### [facility] [address] [place] [id number] SARS-CoV-2 (COVID-19) RNA ESHA+probe Ql (Unsp spec) Negative Normal Negative [facility] ([place]) Comment on above: Performed By: #### C OVD19 #### [facility] [address] [place] [address] SARS-CoV-2 (COVID-19) RNA ESHA+probe Ql (Unsp spec) Normal [facility] ([place]) Comment on above: Result Comment: Nega tive results do not preclude SARS-CoV-2 infection and should not be used as the sole basis for patient management decisions. Negative results must be combined with clinical observations, patient history, and epidemiological information. There is a risk of false negative values resulting from improperly collected, transported, or handled specimens. There is a risk of false negative values due to the presence of sequence variants in the pathogen targets of the assay, procedural errors, amplification inhibitors in specimens, or inadequate numbers of organisms for amplification. BEATRICE SARS-CoV-2 Assay is a Real-Time reverse-transcriptase polymerase chain reaction (RT-PCR) based qualitative in vitro diagnostic test intended for the qualitative detection of nucleic acid from the SARS-CoV-2 in nasopharyngeal swab specimens collected from individuals suspected of COVID-19 by their healthcare provider. Testing is limited to laboratories certified under the Clinical Laboratory Improvement Amendments of 1988 (CLIA), 42 U.S.C. ?263a, to perform moderate and high complexity tests. COVID-19 Int Performed By: #### C OVD19 #### [address] [address] Symptomatic as Defined by CDC Unknown Normal [facility] ([place]) Comment on above: Performed By: #### C OVD19 #### [place] [id number] PREGUon 10-17-2020 HCG ( test) Ql (U) Negative Normal [facility] ([place]) Comment on above: Performed By: #### P REGU, TOXSC #### [address] [address] test (u) int Not detected Invalid Interpretation Code [facility] ([place]) Comment on above: Performed By: #### P REGU, TOXSC #### [address] [address] TOXSCon 10-17-2020 U Ampheta (AO) Positive [facility] ([place]) Comment on above: Performed By: #### P REGU, TOXSC #### [address] [address] U Honey (AO) Negative [facility] [place] Comment on above: Performed By: #### P REGU, TOXSC #### [address] [address] U Tan (AO) Negative [facility] [place] Comment on above: Performed By: #### P REGU, TOXSC #### [address] [address] U Cannab (AO) Negative [facility] [place] Comment on above: Performed By: #### P REGU, TOXSC #### [address] [address] U Cocaine (AO) Negative [facility] ([place] Comment on above: Performed By: #### P REGU, TOXSC #### [address] [address] U Methadone (AO) Negative [facility] ([place] Comment on above: Performed By: #### P REGU, TOXSC #### [address] [address] U PCP (AO) Negative [facility] [place] Comment on above: Performed By: #### P REGU, TOXSC #### [address] [address] U TCA (AO) Positive [facility] [place] Comment on above: Performed By: #### P REGU, TOXSC #### [address] [address] Urine Opiates (AO) Negative [facility] ([place]) Comment on above: Performed By: #### P REGU, TOXSC #### [address] [place] [id number] [place], [place] [address] Acetamnphn Lvlon 11-07-2017 Acetaminophen mass conc <10 Normal 0-15 [facility] Comment on above: Result Comment: Meliza nol - Therapeutic 10-30 ug/ml Toxic 4 hr. Post ingestion >150 ug/ml Toxic 8hr Post ingestion >75 ug/ml Toxic 12hr. Post ingestion >40 ug/ml Performed By: #### 2 [id number] ####JOE MajBqpb9869 [place] [address] Auto Diffon 11-07-2017 Basophils Auto #/vol (Bld) 0.1 E3/mcL Normal 0.0-0.2 [facility] Comment on above: Order Comment: Order Added by Discern Expert. Performed By: #### 2 [id number] ####JOE WetzelJeaUufr5938 [place] [address] Basophils/100 WBC Auto (Bld) 0.7 % Normal 0.0-2.0 [facility] Comment on above: Order Comment: Order Added by Discern Expert. Performed By: #### 2 610177 ####JOE TerXxof5643 [place] [address] Eos Absolute 0.2 E3/mcL Normal 0.0-0.7 [facility] Comment on above: Order Comment: Order Added by Discern Expert. Performed By: #### 2 789310 ####JOE YagQsbs0594 [place] [address] Eosinophils/100 leukocytes 1.8 % Normal 0.0-11.0 [facility] Comment on above: Order Comment: Order Added by Discern Expert. Performed By: #### 2 947229 ####JOE RoaVzll8328 [place] [address] Lymphocytes 3.0 E3/mcL Normal 1.2-3.4 [facility] Comment on above: Order Comment: Order Added by Discern Expert. Performed By: #### 2 056950 ####JOE XrwPvsk6035 [place] [address] Lymphocytes/100 leukocytes 30.9 % Normal 20.0-55.0 [facility] Comment on above: Order Comment: Order Added by Discern Expert. Performed By: #### 2 363824 ####JOE Martinezo1025 [place] [address] Hemphill Absolute 0.6 E3/mcL Normal 0.0-0.7 [facility] Comment on above: Order Comment: Order Added by Discern Expert. Performed By: #### 2 250323 ####JOE Martinezo1025 [place] [address] Monocytes/100 leukocytes 6.6 % Normal 0.0-10.0 [facility] Comment on above: Order Comment: Order Added by Discern Expert. Performed By: #### 2 [id number] ####JOE Martinezo1025 [place] [address] Neutro Absolute 5.9 E3/mcL Normal 1.4-6.5 [facility] Comment on above: Order Comment: Order Added by Discern Expert. Performed By: #### 2 670846 ####JOE Martinezo1025 [place] [address] Neutro Auto 60.0 % Normal 37.0-75.0 [facility] Comment on above: Order Comment: Order Added by Discern Expert. Performed By: #### 2 917208 ####JOE Martinezo1025 [place] [address] CBC w/ Auto Diffon 8 Erythrocyte distribution width Auto Ratio (RBC) 18.0 % High 11.5-14.5 [facility] Comment on above: Performed By: #### 2 355387 ####JOE Martinezo1025 [place] [address] Erythrocytes (RBC) 3.83 E6/mcL Low 3.90-5.40 [facility] Comment on above: Performed By: #### 2 816972 ####JOE Martinezo1025 [place] [address] Hematocrit (HCT) 33.0 % Low 36.0-48.0 [facility] Comment on above: Performed By: #### 2 323451 ####JOE Mart[address]zo[address]25 [place] [address] Hemoglobin mass conc (Bld) 10.7 g/dL Low 12.0-16.0 [facility] Comment on above: Performed By: #### 2 482811 ####JOE Martinezo[address] [place] [address] MCH 27.9 pg Normal 27.0-31.0 [facility] Comment on above: Performed By: #### 2 101915 ####JOE OosVdpu5831 [place] [address] MCHC mass conc (RBC) 32.4 g/dL Low 33.0-37.0 [facility] Comment on above: Performed By: #### 2 157530 ####JOE Martinezo[address]25 [place] [address] MCV 86.0 fL Normal 78.0-100.0 [facility] Comment on above: Performed By: #### 2 669091 ####JOE RzeIptr6285 [place] [address] Platelet mean volume (PMV) 8.7 fL Normal 7.4-11.0 [facility] Comment on above: Performed By: #### 2 [id number] ####JOE Martinezo[address] [place] [address] Platelets 250 E3/mcL Normal 130-400 [facility] Comment on above: Performed By: #### 2 009100 ####JOE Martinezo[address]25 [place] [address] WBC (Leukocytes) 9.9 E3/mcL Normal 3.6-11.0 [facility] Comment on above: Performed By: #### 2 783576 ####JOEAbhay WetzelRifRwrh7944 [place] [id number] CMPon 11-07-2017 Alanine aminotransferase (ALT) 17 Int._Unit/L Normal 10-40 [facility] Comment on above: Performed By: #### 2 188331 ####JOEAbhay WetzelJeyModm2685 [place] [id number] Albumin 3.4 g/dL Normal 3.2-5.0 [facility] Comment on above: Performed By: #### 2 434927 ####JOE Ramirez1025 [place] [address] Albumin/Globulin Ratio 1.1 {ratio} Normal 1.1-1.9 [facility] Comment on above: Performed By: #### 2 184081 ####JOE Ramirez[address]25 [place] [address] Alk Phos 49 Int._Unit/L Normal 42-121 [facility] Comment on above: Performed By: #### 2 273072 ####JOE Ramirez[address]25 [place] [address] Aspartate aminotransferase (AST) 15 Int._Unit/L Normal 10-42 [facility] Comment on above: Performed By: #### 2 090127 ####JOE Ramirez1025 [place] [address] Bili Total 0.6 mg/dL Normal 0.2-1.0 [facility] Comment on above: Performed By: #### 2 614562 ####JOE Ramirez[address]25 [place] [address] BUN/Creatinine Ratio 28.6 ratio Normal 5.4-30.0 [facility] Comment on above: Performed By: #### 2 537370 ####JOE XxtCcye2668 [place] [address] Creatinine 0.7 mg/dL Normal 0.6-1.3 [facility] Comment on above: Performed By: #### 2 550937 ####JOE SqbVpyo2957 [place] [address] Globulin 3.1 g/dL Normal 2.0-4.0 [facility] Comment on above: Performed By: #### 2 857611 ####JOE LezLeqk5185 [place] [address] Protein 6.5 g/dL Normal 6.4-8.3 [facility] Comment on above: Performed By: #### 2 797736 ####JOE Ramirez[address] [place] [address] Urea nitrogen 20 mg/dL High 7-18 [facility] Comment on above: Performed By: #### 2 470416 ####JOE AlaKsmz9069 [place] [address] Calcium 8.9 mg/dL Normal 8.4-10.2 [facility] Comment on above: Performed By: #### 2 915927 ####JOE HvoYzsv9649 [place] [address] Chloride 107 mmol/L Normal 98-107 [facility] Comment on above: Performed By: #### 2 569776 ####JOE Ramirez[address]25 [place] [address] CO2 24.9 mmol/L Normal 24.0-30.0 [facility] Comment on above: Performed By: #### 2 515238 ####JOE LdxOull0680 [place] [address] Glucose mass conc 123 mg/dL High 70-99 [facility] Comment on above: Performed By: #### 2 242649 ####JOE XnbXnwh9566 [place] [address] Potassium molar conc 3.3 mmol/L Low 3.5-5.1 [facility] Comment on above: Performed By: #### 2 573684 ####JOE HwoGjdb3847 [place] [address] Sodium 138 mmol/L Normal 136-145 [facility] Comment on above: Performed By: #### 2 984622 ####JOE WetzelBewQabl1440 [place] [address] Ethanolon 11-07-2017 Ethanol Lvl <5 Normal 0-15 [facility] Comment on above: Result Comment: SAMP LES WITH CONCENTRATIONS <15 MG/DL SHOULD BEINTERPRETED NEGATIVE. FOR MEDICAL USE ONLY Performed By: #### 2 971632 ####JOE WetzelFowZvhn37[address] [place] [id number] Morphon 11-07-2017 Anisocytosis presence 2+ Normal [facility] Comment on above: Order Comment: Order Added by Discern Expert. Performed By: #### 2 180937 ####JOE Urinalysis Manual Spuodfidvj9094 [place] [id number] Erythrocyte morphology SEE MORPHOLOGY Normal [facility] Comment on above: Order Comment: Order Added by Discern Expert. Performed By: #### 2 627857 ####JOE Urinalysis Manual Qjmhlffygd4080 [place] [address] Salicylateon 11-07-2017 Salicylate Lvl <4 Low 15-30 [facility] Comment on above: Performed By: #### 2 509943 ####JOE JeqZndc3916 [place] [address] U BhCG Qlton 11-07-2017 HCG.beta subunit Qn Negative Normal Neg [facility] Comment on above: Performed By: #### 2 680418 ####JOE Urinalysis Manual Pqyotidnkx1843 [place] [address] U Drug Screenon 11-07-2017 U Amph Scr Negative Normal [facility] Comment on above: Result Comment: Resu lts for medical use only. Confirmation of positive results will be done when requested. Specimens are kept for one week. Performed By: #### 2 017427 ####JOE ActJljr5853 [place] [address] U Honey Scr Negative Normal [facility] Comment on above: Performed By: #### 2 038140 ####JOE CyaLmoq8791 [place] [address] U Benzodia Scr Negative [facility] Comment on above: Performed By: #### 2 100152 ####JOE VeyCrmp9149 [place] [address] U Cannab Scr Negative Normal [facility] Comment on above: Performed By: #### 2 375547 ####JOE QqnGdue3747 [place] [address] U Cocaine Scr Negative Normal [facility] Comment on above: Performed By: #### 2 730528 ####JOE ZfjThsr1474 [place] [address] U Opiate Scr Negative Normal [facility] Comment on above: Performed By: #### 2 443494 ####JOE LqhCzcz4911 [place] [address] U PCP Scr Negative Normal [facility] Comment on above: Performed By: #### 2 264531 ####JOE EdwAfsd5815 [place] [address] UA Completeon 11-07-2017 UA Blood Negative Normal Negative [facility] Comment on above: Performed By: #### 8 [id number] ####JOE Urinalysis Automated Qbxzeymqkm1425 [place] [address] UA Amorph Macie Trace Abnormal None [facility] Comment on above: Performed By: #### 8 [id number] ####JOE Urinalysis Automated Qaehougkor8608 [place] [address] UA Bacteria Trace Abnormal None [facility] Comment on above: Performed By: #### 8 [id number] ####JOE Urinalysis Automated Lkazlkakis7726 [place] [address] UA Clarity Cloudy Abnormal Clear [facility] Comment on above: Performed By: #### 8 [id number] ####JOE Urinalysis Automated Pbrdwayjnj5030 [place] [address] UA Leuk Est 3+ Abnormal Negative [facility] Comment on above: Performed By: #### 8 [id number] ####JOE Urinalysis Automated [address] [place] [address] UA Mucous Trace Abnormal Trace [facility] Comment on above: Performed By: #### 8 [id number] ####JOE Urinalysis Automated Sqdrvjcesr6473 [place] [address] UA Nitrite Negative Normal Negative [facility] Comment on above: Performed By: #### 8 [id number] ####JOE Urinalysis Automated S[address]stzcon[address] [place] [address] UA pH 7.0 Normal 4.6-8.0 [facility] Comment on above: Performed By: #### 8 [id number] ####JOE Urinalysis Automated Cfdlkntbyk1247 [place] [address] UA Protein 1+ Abnormal Negative [facility] Comment on above: Performed By: #### 8 [id number] ####JOE Urinalysis Automated Hkfirmvlpf5531 [place] [address] UA Spec Grav 1.021 Normal 1.003-1.030 [facility] Comment on above: Performed By: #### 8 [id number] ####JOE Urinalysis Automated [address] [place] [address] UA Squam Epithelial 5-10 Abnormal 0-5 [facility] Comment on above: Performed By: #### 8 [id number] ####JOE Urinalysis Automated Wrwmjsemnx5050 [place] [address] UA Urobilinogen Negative Normal [facility] Comment on above: Performed By: #### 8 [id number] ####JOE Urinalysis Automated Aejyeockvc5066 [place] [address] UA WBC >50 Abnormal 0-5 [facility] Comment on above: Performed By: #### 8 [id number] ####JOE Urinalysis Automated Liagxkikwb4652 [place] [id number] Urine, color Yellow Normal Yellow [facility] Comment on above: Performed By: #### 8 7012455 ####JOE Urinalysis Automated Bcadjcxftr4810 [place] [address] Urine, erythrocytes 3-5 Abnormal 0-3 [facility] Comment on above: Performed By: #### 8 [id number] ####JOE Urinalysis Automated Tkbsgtqoya7418 [place] [address] Urine, glucose Negative Normal Negative [facility] Comment on above: Performed By: #### 8 [id number] ####JOE Urinalysis Automated Nqhzvcfrbu4081 [place] [address] Urine, ketones presence Negative Normal Negative [facility] Comment on above: Performed By: #### 8 [id number] ####JOE Urinalysis Automated Hiufknbdhk8335 [place] [address] Urine, urobilinogen Negative Normal Negative [facility] Comment on above: Performed By: #### 8 [id number] ####JOE Urinalysis Automated Rzxrrzkwdh0194 [place] [address] eGFRon 11-07-2017 eGFR (non-black) mL/min/{1.73_m2} Normal [facility] Comment on above: Order Comment: Order added by Discern Expert. Performed By: #### 1 [id number] ####JOE KrwAlee2258 [place] [address] zzplt morphon 11-07-2017 Platelet morphology NORMAL Normal [facility] Comment on above: Performed By: #### 2 309157 ####JOE Urinalysis Manual Hnmnjuzfov7494 [place] [id number] Platelets NORMAL Normal [facility] Comment on above: Performed By: #### 2 493118 ####JOE Urinalysis Manual Aqhgwdifio6909 [place] [address] Vital Signs Date Time Vital Sign Value Performing Clinician Facility 03-17-2024 10:57-0400 Body mass index (BMI) [Ratio] 55.03 kg/m2 Osmani Marroquin MD Work Phone: [facility] 03-17-2024 10:57-0400 Body temperature 98.01 [degF] Osmani Marroquin MD Work Phone: [facility] 03-17-2024 10:57-0400 Body weight 157 kg Osmani Marroquin MD Work Phone: [facility] 03-17-2024 10:57-0400 Diastolic blood pressure 78 mm[Hg] Osmani Marroquin MD Work Phone: [facility] 03-17-2024 10:57-0400 Heart rate 87 /min Osmani Marroquin MD Work Phone: [facility] 03-17-2024 10:57-0400 Respiratory rate 18 /min Osmani Marroquin MD Work Phone: [facility] 03-17-2024 10:57-0400 SaO2% (BldA) [Mass fraction] 99 % Osmani Marroquin MD Work Phone: [facility] 03-17-2024 10:57-0400 Systolic blood pressure 132 mm[Hg] Osmani Marroquin MD Work Phone: [facility] 03-14-2024 09:35-0400 Body mass index (BMI) [Ratio] 54.68 kg/m2 Alberta Edward MD Work Phone: [facility] 03-14-2024 09:35-0400 Body weight 156 kg Alberta Edward MD Work Phone: [facility] 03-14-2024 09:35-0400 Diastolic blood pressure 74 mm[Hg] Alberta Edward MD Work Phone: [facility] 03-14-2024 09:35-0400 Heart rate 66 /min Alberta Edward MD Work Phone: [facility] 03-14-2024 09:35-0400 Systolic blood pressure 132 mm[Hg] Alberta Edward MD Work Phone: [facility] 03-13-2024 10:11-0400 Body height 168.9 cm Angela Santos MD Work Phone: [facility] 03-13-2024 10:11-0400 Body mass index (BMI) [Ratio] 54.85 kg/m2 Angela Santos MD Work Phone: [facility] 03-13-2024 10:11-0400 Body weight 156.49 kg Angela Santos MD Work Phone: [facility] 03-13-2024 10:11-0400 Diastolic blood pressure 84 mm[Hg] Angela Santos MD Work Phone: [facility] 03-13-2024 10:11-0400 Heart rate 90 /min Angela Santos MD Work Phone: [facility] 03-13-2024 10:11-0400 SaO2% (BldA) [Mass fraction] 99 % Angela Santos MD Work Phone: [facility] 03-13-2024 10:11-0400 Systolic blood pressure 144 mm[Hg] Angela Santos MD Work Phone: [facility] 03-08-2024 08:57-0400 Body mass index (BMI) [Ratio] 54.9 kg/m2 Michelle Roberts COUNSELING PROGRAM LEADER.INSURANCE AGENCY MANAGER Work Phone: [facility] 03-08-2024 08:57-0400 Body temperature 97.39 [degF] Michelle Roberts COUNSELING PROGRAM LEADER.INSURANCE AGENCY MANAGER Work Phone: [facility] 03-08-2024 08:57-0400 Body weight 156.8 kg Michelle Moomaw COUNSELING PROGRAM LEADER.INSURANCE AGENCY MANAGER Work Phone: [facility] 03-08-2024 08:57-0400 Diastolic blood pressure 86 mm[Hg] Michelle Moomaw COUNSELING PROGRAM LEADER.INSURANCE AGENCY MANAGER Work Phone: [facility] 03-08-2024 08:57-0400 Heart rate 100 /min Michelle Moomaw COUNSELING PROGRAM LEADER.INSURANCE AGENCY MANAGER Work Phone: [facility] 03-08-2024 08:57-0400 Respiratory rate 21 /min Michelle Moomaw COUNSELING PROGRAM LEADER.INSURANCE AGENCY MANAGER Work Phone: [facility] 03-08-2024 08:57-0400 SaO2% (BldA) [Mass fraction] 97 % Michelle Moomaw COUNSELING PROGRAM LEADER.INSURANCE AGENCY MANAGER Work Phone: [facility] 03-08-2024 08:57-0400 Systolic blood pressure 140 mm[Hg] Michelle Moomaw COUNSELING PROGRAM LEADER.INSURANCE AGENCY MANAGER Work Phone: [facility] 11-22-2023 10:16-0400 Body height 169 cm Manuela Pearce COUNSELING PROGRAM LEADER.CNM Work Phone: [facility] 11-22-2023 10:16-0400 Body mass index (BMI) [Ratio] 53.52 kg/m2 Manuela Pearce COUNSELING PROGRAM LEADER.CNM Work Phone: [facility] 11-22-2023 10:16-0400 Body weight 152.86 kg Manuela Pearce COUNSELING PROGRAM LEADER.CNM Work Phone: [facility] 11-22-2023 10:16-0400 Diastolic blood pressure 72 mm[Hg] Manuela Pearce COUNSELING PROGRAM LEADER.CNM Work Phone: [facility] 11-22-2023 10:16-0400 Systolic blood pressure 120 mm[Hg] Manuela Pearce COUNSELING PROGRAM LEADER.CNM Work Phone: [facility] 11-15-2023 09:56-0400 Body mass index (BMI) [Ratio] 54.55 kg/m2 Ursula Hernandezagen COUNSELING PROGRAM LEADER.INSURANCE AGENCY MANAGER Work Phone: [facility] 11-15-2023 09:56-0400 Body weight 153.32 kg Ursula Haagen COUNSELING PROGRAM LEADER.INSURANCE AGENCY MANAGER Work Phone: [facility] 11-15-2023 09:56-0400 Diastolic blood pressure 92 mm[Hg] Ursula Haagen COUNSELING PROGRAM LEADER.INSURANCE AGENCY MANAGER Work Phone: [facility] 11-15-2023 09:56-0400 Heart rate 88 /min Ursula Haagen COUNSELING PROGRAM LEADER.INSURANCE AGENCY MANAGER Work Phone: [facility] 11-15-2023 09:56-0400 Respiratory rate 16 /min Ursula Haagen COUNSELING PROGRAM LEADER.INSURANCE AGENCY MANAGER Work Phone: [facility] 11-15-2023 09:56-0400 SaO2% (BldA) [Mass fraction] 95 % Ursula Haagen COUNSELING PROGRAM LEADER.INSURANCE AGENCY MANAGER Work Phone: [facility] 11-15-2023 09:56-0400 Systolic blood pressure 124 mm[Hg] Ursula Haagen COUNSELING PROGRAM LEADER.INSURANCE AGENCY MANAGER Work Phone: [facility] 09-06-2023 08:45-0400 Body weight 152.41 kg Ursula Haagen COUNSELING PROGRAM LEADER.INSURANCE AGENCY MANAGER Work Phone: [facility] 09-06-2023 08:45-0400 Diastolic blood pressure 80 mm[Hg] Ursula Haagen COUNSELING PROGRAM LEADER.INSURANCE AGENCY MANAGER Work Phone: [facility] 09-06-2023 08:45-0400 Heart rate 87 /min Ursula Haagen COUNSELING PROGRAM LEADER.INSURANCE AGENCY MANAGER Work Phone: [facility] 09-06-2023 08:45-0400 Respiratory rate 16 /min Ursula Haagen COUNSELING PROGRAM LEADER.INSURANCE AGENCY MANAGER Work Phone: [facility] 09-06-2023 08:45-0400 SaO2% (BldA) [Mass fraction] 96 % Ursula Haagen COUNSELING PROGRAM LEADER.INSURANCE AGENCY MANAGER Work Phone: [facility] 09-06-2023 08:45-0400 Systolic blood pressure 104 mm[Hg] Ursula Haagen COUNSELING PROGRAM LEADER.INSURANCE AGENCY MANAGER Work Phone: [facility] 04-15-2023 10:21-0500 Body temperature 98.1 [degF] [facility] COUNSELING PROGRAM LEADER.INSURANCE AGENCY MANAGER Work Phone: [facility] 04-15-2023 10:21-0500 Body weight 153.95 kg [facility] COUNSELING PROGRAM LEADER.INSURANCE AGENCY MANAGER Work Phone: [facility] 04-15-2023 10:21-0500 Diastolic blood pressure 64 mm[Hg] [facility] COUNSELING PROGRAM LEADER.INSURANCE AGENCY MANAGER Work Phone: [facility] 04-15-2023 10:21-0500 Heart rate 84 /min [facility] COUNSELING PROGRAM LEADER.INSURANCE AGENCY MANAGER Work Phone: [facility] 04-15-2023 10:21-0500 Respiratory rate 16 /min [facility] COUNSELING PROGRAM LEADER.INSURANCE AGENCY MANAGER Work Phone: [facility] 04-15-2023 10:21-0500 SaO2% (BldA) [Mass fraction] 96 % [facility] COUNSELING PROGRAM LEADER.INSURANCE AGENCY MANAGER Work Phone: [facility] 04-15-2023 10:21-0500 Systolic blood pressure 118 mm[Hg] [facility] COUNSELING PROGRAM LEADER.INSURANCE AGENCY MANAGER Work Phone: [facility] 07-01-2022 15:47-0500 Body weight 166.92 kg NA Arriaga PA-C Work Phone: [facility] 07-01-2022 15:47-0500 Diastolic blood pressure 78 mm[Hg] NA Arriaga PA-C Work Phone: [facility] 07-01-2022 15:47-0500 Heart rate 91 /min NA Arriaga PA-C Work Phone: [facility] 07-01-2022 15:47-0500 Respiratory rate 16 /min NA Arriaga PA-C Work Phone: [facility] 07-01-2022 15:47-0500 SaO2% (BldA) [Mass fraction] 96 % NA Arriaga PA-C Work Phone: [facility] 07-01-2022 15:47-0500 Systolic blood pressure 120 mm[Hg] NA Arriaga PA-C Work Phone: [facility] 05-03-2022 11:36-0500 Body weight 159.21 kg Ursula Haagen COUNSELING PROGRAM LEADER.INSURANCE AGENCY MANAGER Work Phone: [facility] 05-03-2022 11:36-0500 Diastolic blood pressure 86 mm[Hg] Ursula Haagen COUNSELING PROGRAM LEADER.INSURANCE AGENCY MANAGER Work Phone: [facility] 05-03-2022 11:36-0500 Heart rate 67 /min Ursula Haagen COUNSELING PROGRAM LEADER.INSURANCE AGENCY MANAGER Work Phone: [facility] 05-03-2022 11:36-0500 Respiratory rate 18 /min Ursula Haagen COUNSELING PROGRAM LEADER.INSURANCE AGENCY MANAGER Work Phone: [facility] 05-03-2022 11:36-0500 SaO2% (BldA) [Mass fraction] 95 % Ursula Haagen COUNSELING PROGRAM LEADER.INSURANCE AGENCY MANAGER Work Phone: [facility] 05-03-2022 11:36-0500 Systolic blood pressure 124 mm[Hg] Ursula Haagen COUNSELING PROGRAM LEADER.INSURANCE AGENCY MANAGER Work Phone: [facility] 03-24-2022 11:49-0400 Body weight 155.58 kg Ursula Haagen COUNSELING PROGRAM LEADER.INSURANCE AGENCY MANAGER Work Phone: [facility] 03-24-2022 11:49-0400 Diastolic blood pressure 90 mm[Hg] Ursula Haagen COUNSELING PROGRAM LEADER.INSURANCE AGENCY MANAGER Work Phone: [facility] 03-24-2022 11:49-0400 Heart rate 75 /min Ursula Haagen COUNSELING PROGRAM LEADER.INSURANCE AGENCY MANAGER Work Phone: [facility] 03-24-2022 11:49-0400 Respiratory rate 18 /min Ursula Haagen COUNSELING PROGRAM LEADER.INSURANCE AGENCY MANAGER Work Phone: [facility] 03-24-2022 11:49-0400 SaO2% (BldA) [Mass fraction] 98 % Ursula Haagen COUNSELING PROGRAM LEADER.INSURANCE AGENCY MANAGER Work Phone: [facility] 03-24-2022 11:49-0400 Systolic blood pressure 136 mm[Hg] Ursula Be COUNSELING PROGRAM LEADER.INSURANCE AGENCY MANAGER Work Phone: [facility] 04-24-2021 18:35-0500 Body temperature 99.86 [degF] DOLORES ZENG MD [facility] 04-24-2021 18:35-0500 Diastolic blood pressure 86 mm[Hg] DOLORES ZENG MD [facility] 04-24-2021 18:35-0500 Heart rate 88 /min DOLORES ZENG MD [facility] 04-24-2021 18:35-0500 Respiratory rate 16 /min DOLORES ZENG MD [facility] 04-24-2021 18:35-0500 Systolic blood pressure 147 mm[Hg] DOLORES ZENG MD [facility] Encounters Encounter Date Encounter Type Care Provider Facility Start: 03-17-2024 End: 03-17-2024 Office outpatient visit 15 minutes Osmani Marroquin MD Work Phone: [facility] Comment on above: URI, acute (Primary Dx) Start: 03-14-2024 End: 03-14-2024 ambulatory ALBERTA EDWARD Facility:[facility] Start: 03-14-2024 End: 03-14-2024 Office consultation new/estab patient 80 min Alberta Edward MD Work Phone: Rheumatology Comment on above: Polyarthralgia Start: 03-13-2024 End: 03-13-2024 ambulatory ANGELA SANTOS Facility:[facility] Start: 03-13-2024 End: 03-13-2024 Patient encounter procedure Angela Santos MD Work Phone: OB/Gynecology Comment on above: Elevated hemoglobin A1c (Primary Dx); Malaise and fatigue; ANDREW (obstructive sleep apnea); Elevated cholesterol; Elevated blood pressure reading without diagnosis of hypertension; Screening cholesterol level; Screening for deficiency anemia; Screening for diabetes mellitus; Screening for metabolic disorder; Screening for thyroid disorder; Encounter for vitamin deficiency screening; Morbid obesity with BMI of 50.0-59.9, adult (HCC) Start: 03-12-2024 End: 03-12-2024 E-mail encounter from caregiver Angela Santos MD Work Phone: OB/Gynecology Start: 03-12-2024 End: 03-12-2024 Patient encounter procedure Angela Santos MD Work Phone: OB/Gynecology Comment on above: Dr. Santos appoint ment 03/13/2024 Start: 03-08-2024 End: 03-08-2024 ambulatory JONY MARTELL Facility:[facility] Start: 03-08-2024 End: 03-08-2024 Patient encounter procedure Michelle Roberts APRN.INSURANCE AGENCY MANAGER Work Phone: [facility] Comment on above: Nausea (Primary Dx); Diarrhea, unspecified type Start: 12-13-2023 End: 12-14-2023 Emergency department patient visit JONY FREEMAN JASBIR [facility] Start: 12-06-2023 Telephone encounter Ursula shelton APRN.INSURANCE AGENCY MANAGER Work Phone: [facility] [place] Comment on above: Insurance Authorizat ion ([employer] ) Start: 12-05-2023 ambulatory Ursula Be COUNSELING PROGRAM LEADER.INSURANCE AGENCY MANAGER Work Phone: [facility] [place] Comment on above: [employer] Start: 11-22-2023 End: 11-22-2023 ambulatory Ursula Be COUNSELING PROGRAM LEADER.INSURANCE AGENCY MANAGER Work Phone: [facility] [place] Comment on above: Pregnisone Start: 11-22-2023 End: 11-22-2023 Patient encounter procedure Manuela Pearce APRN.CNM Work Phone: OB/Gynecology Comment on above: Encounter for gyneco logical examination (general) (routine) without abnormal findings (Primary Dx); Screening for cervical cancer; Encounter for screening for human papillomavirus (HPV); Class 3 severe obesity without serious comorbidity with body mass index (BMI) of 50.0 to 59.9 in adult, unspecified obesity type (HCC) Start: 11-22-2023 End: 11-22-2023 Patient encounter status Manuela Pearce APRN.CNSilvestre Work Phone: [facility] Start: 11-15-2023 End: 11-15-2023 ambulatory [facility] Facility:[facility] Start: 11-15-2023 End: 11-15-2023 Office outpatient visit 15 minutes Ursula Be APRN.INSURANCE AGENCY MANAGER Work Phone: [facility] [place] Comment on above: Morbid obesity with BMI of 50.0-59.9, adult (HCC) (Primary Dx) Start: 09-26-2023 Telephone encounter Jony Martell MD Work Phone: [facility] [place] Comment on above: Insurance Authorizat ion (Metformin ER) Start: 09-23-2023 ambulatory Ursula Be APRN.INSURANCE AGENCY MANAGER Work Phone: [facility] [place] Comment on above: Lab work Start: 09-21-2023 End: 09-21-2023 ambulatory [facility] Facility:[facility] Start: 09-06-2023 End: 09-06-2023 [facility] Facility:[facility] Start: 09-06-2023 End: 09-06-2023 Patient encounter procedure Ursula Be APRN.INSURANCE AGENCY MANAGER Work Phone: [facility] [place] Comment on above: Wellness examination (Primary Dx); Acquired hypothyroidism; Prediabetes; Polyarthralgia; Elevated sed rate; Vitamin D deficiency; Anemia, unspecified type; Gastroesophageal reflux disease, unspecified whether esophagitis present; Encounter for immunization Start: 09-06-2023 End: 09-06-2023 Patient encounter status Ursula Be APRN.INSURANCE AGENCY MANAGER Work Phone: [facility] Work Phone: Start: 04-15-2023 End: 04-15-2023 ambulatory JONY MARTELL Facility:[facility] Start: 04-15-2023 End: 04-15-2023 Office outpatient visit 15 minutes Paolo Magaña APRN.INSURANCE AGENCY MANAGER Work Phone: [facility] Comment on above: Acute conjunctivitis of right eye, unspecified acute conjunctivitis type (Primary Dx) Start: 03-13-2023 Refill Ursula Be APRN.INSURANCE AGENCY MANAGER Work Phone: [facility] [place] Comment on above: Refill Request Start: 01-20-2023 End: 01-20-2023 Patient encounter procedure Paz Hoskins OD Work Phone: Ophthalmology Comment on above: 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); Meibomian gland dysfunction (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 Start: 11-25-2022 Admission to [facility] Jony Martell MD Work Phone: [facility] [place] Comment on above: Gastric surgery Start: 11-25-2022 ambulatory Jony Martell MD Work Phone: [facility] [place] Start: 10-08-2022 ambulatory Ursula Be APRN.INSURANCE AGENCY MANAGER Work Phone: [facility] [place] Comment on above: Carpool tunnel Start: 08-15-2022 Refill Ursula Be APRN.INSURANCE AGENCY MANAGER Work Phone: [facility] [place] Comment on above: Refill Request; Refi ll Request Protonix Start: 08-13-2022 Telephone encounter Ursula shelton APRN.INSURANCE AGENCY MANAGER Work Phone: [facility] [place] Comment on above: Results Start: 07-01-2022 End: 07-01-2022 Patient encounter procedure Silvestre Arriaga PA-C Work Phone: [facility] [place] Comment on above: Subclinical hypothyr oidism (Primary Dx); Numbness and tingling in right hand; 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); Left hip pain Start: 06-30-2022 ambulatory Ursula Be APRN.CNP Work Phone: [facility] [place] Comment on above: Pain Start: 05-11-2022 Telephone encounter Ursula shelton APRN.INSURANCE AGENCY MANAGER Work Phone: [facility] [place] Comment on above: Opened In Error Start: 05-07-2022 Telephone encounter Ursula shelton APRN.INSURANCE AGENCY MANAGER Work Phone: [facility] [place] Comment on above: Results Start: 05-03-2022 End: 05-03-2022 Office outpatient visit 25 minutes Ursula Be APRN.INSURANCE AGENCY MANAGER Work Phone: [facility] [place] Comment on above: Hypertension, essent ial (Primary Dx); Prediabetes; Anemia, unspecified type; Acquired hypothyroidism; Polyarthralgia; Class 3 severe obesity without serious comorbidity with body mass index (BMI) of 50.0 to 59.9 in adult, unspecified obesity type (HCC); Vitamin D deficiency; ANDREW (obstructive sleep apnea) Start: 03-24-2022 End: 03-24-2022 Office outpatient visit 15 minutes Ursula Be APRN.INSURANCE AGENCY MANAGER Work Phone: [facility] [place] Comment on above: Hypertension, essent ial (Primary Dx); Panic disorder without agoraphobia Start: 04-24-2021 End: 04-24-2021 Emergency department patient visit DOLORES ZENG MD [facility] Start: 11-07-2017 End: 11-07-2017 Emergency department patient visit Michelle Fam [facility] Procedures Date Procedure Procedure Detail Performing Clinician Start: 12-13-2023 Urinalysis JONY GROSSMAN Comment on above: Result Comment: URIN ALYSIS Performed By: #### [id number] #### Quan [facility],[address] [place] [address] Start: 09-06-2023 [employer] COVI D-19 VACCINE (2022- SEASON) AGE 12+ YR Ursula Be APRN.INSURANCE AGENCY MANAGER Work Phone: Tonsil and adenoid structure (body structure) DOLORES ZENG MD Plan of Treatment Date Care Activity Detail Author Start: 11-21-2028 Screening for malignant neoplasm of cervix Cervical Cancer Screening [facility] Start: 11-26-2024 End: 11-26-2024 Patient encounter procedure 11/26/2024 8:15 AM EDT Office Visit OB/Gynecology [address] [place] [address] Manuela Pearce APRN.CNM [address] [place] [address] Annual OB/Gynecology Comment on above: Annual Start: 11-22-2024 End: 11-22-2024 Patient encounter procedure 11/22/2024 10:45 AM EDT Office Visit OB/Gynecology [address] [place] [address] Manuela Pearce APRN.CNM [address] [place] [address] Annual OB/Gynecology Comment on above: Annual Start: 11-21-2024 BP Controlled (<130/80) BP Controlled (<130/80) [facility] Start: 11-14-2024 Annual PCP Team Chronic Disease Visit Annual PCP Team Chronic Disease Visit [facility] Start: 09-05-2024 Annual PCP Team Chronic Disease Visit Annual PCP Team Chronic Disease Visit [facility] Start: 09-02-2024 Urine microalbumin profile DTaP,Tdap,Td Vaccine (2 - Td or Tdap) [facility] Start: 06-29-2024 End: 06-29-2024 Patient encounter procedure 06/29/2024 8:50 AM EST Office Visit OB/Gynecology [address] [place] [address] Angela Crawford MD [address] [place] [address] weight management follow up OB/Gynecology Comment on above: weight management follow up Start: 06-07-2024 End: 06-07-2024 Patient encounter procedure 06/07/2024 11:00 AM EST Office Visit Neurology [address] [place] [address] Meghann Monsalve APRN.INSURANCE AGENCY MANAGER [address] [place] [address] Morbid obesity with BMI of 50.0-59.9, adult (HCC) [E66.01, Z68.43]; ANDREW (obstructive sleep apnea) [G47.33]; Elevated blood pressure reading without diagnosis of hypertension [R03.0]; Malaise and fatigue [R53.81, R53.83] Neurology Comment on above: Morbid obesity with BMI of 50.0-59.9, ad ult (HCC) [E66.01, Z68.43]; ANDREW (obstructive sleep apnea) [G47.33]; Elevated blood pressure reading without diagnosis of hypertension [R03.0]; Malaise and fatigue [R53.81, R53.83] Start: 05-29-2024 End: 05-29-2024 Patient encounter procedure 05/29/2024 11:40 AM EST Office Visit OB/Gynecology [address] [place] [address] Angela Crawford MD [address] [place], [place] [id number] weight management follow up OB/Gynecology Comment on above: weight management follow up Start: 04-27-2024 End: 04-27-2024 Patient encounter procedure 04/27/2024 1:30 PM EST Office Visit OB/Gynecology [address] [place] [address] Angela Crawford MD [address] [place] [address] weight management follow up OB/Gynecology Comment on above: weight management follow up Start: 04-15-2024 BP Controlled (<130/80) BP Controlled (<130/80) [facility] Start: 03-14-2024 End: 06-13-2024 MAYLIN BY IFA SCREEN MAYLIN BY IFA SCREEN Lab Routine Polyarthralgia Expected: 03/14/2024, Expires: 06/13/2024 [facility] Work Phone: Comment on above: Expected: 03/14/2024, Expires: Start: 03-14-2024 End: 06-13-2024 C reactive protein [Mass/volume] in Serum or Plasma C-REACTIVE PROTEIN Lab Routine Polyarthralgia Expected: 03/14/2024, Expires: 06/13/2024 [facility] Comment on above: Expected: 03/14/2024, Expires: Start: 03-14-2024 End: 06-13-2024 CBC W Auto Differential panel - Blood COMPLETE BLOOD COUNT AND DIFFERENTIAL Lab Routine Polyarthralgia Expected: 03/14/2024, Expires: 06/13/2024 [facility] Comment on above: Expected: 03/14/2024, Expires: Start: 03-14-2024 End: 06-13-2024 Comprehensive metabolic 2000 panel - Serum or Plasma COMPREHENSIVE METABOLIC PANEL Lab Routine Polyarthralgia Expected: 03/14/2024, Expires: 06/13/2024 [facility] Comment on above: Expected: 03/14/2024, Expires: Start: 03-14-2024 End: 06-13-2024 Cyclic citrullinated peptide IgG Ab [Units/volume] in Serum or Plasma CCP ANTIBODY IGG Lab Routine Polyarthralgia Expected: 03/14/2024, Expires: 06/13/2024 [facility] Comment on above: Expected: 03/14/2024, Expires: Start: 03-14-2024 End: 06-13-2024 DNA double strand Ab [Units/volume] in Serum by Immunoassay DNA AB DS + CONF BLD Lab Routine Polyarthralgia Expected: 03/14/2024, Expires: 06/13/2024 [facility] Comment on above: Expected: 03/14/2024, Expires: Start: 03-14-2024 End: 06-13-2024 Erythrocyte sedimentation rate SEDIMENTATION RATE, WESTERGREN Lab Routine Polyarthralgia Expected: 03/14/2024, Expires: 06/13/2024 [facility] Comment on above: Expected: 03/14/2024, Expires: Start: 03-14-2024 End: 06-13-2024 Extractable nuclear Ab panel - Serum ANTI DAKOTA ID Lab Routine Polyarthralgia Expected: 03/14/2024, Expires: 06/13/2024 [facility] Comment on above: Expected: 03/14/2024, Expires: Start: 03-14-2024 End: 06-13-2024 Rheumatoid factor [Units/volume] in Serum or Plasma RHEUMATOID FACTOR Lab Routine Polyarthralgia Expected: 03/14/2024, Expires: 06/13/2024 [facility] Comment on above: Expected: 03/14/2024, Expires: Start: 03-14-2024 End: 03-14-2024 Patient encounter procedure 03/14/2024 9:40 AM EDT Office Visit Rheumatology [address] [place], [place] [id number] Alberta Edward MD [address] [place] [address] Polyarthralgia [M25.50] Rheumatology Comment on above: Polyarthralgia [M25.50] Start: 03-13-2024 End: 06-12-2024 25-hydroxyvitamin D3 [Mass/volume] in Serum or Plasma VITAMIN D 25 HYDROXY Lab Routine Encounter for vitamin deficiency screening Expected: 03/13/2024, Expires: 06/12/2024 [facility] Work Phone: Comment on above: Expected: 03/13/2024, Expires: Start: 03-13-2024 End: 06-12-2024 Comprehensive metabolic 2000 panel - Serum or Plasma COMPREHENSIVE METABOLIC PANEL Lab Routine Screening for diabetes mellitus Screening for metabolic disorder Expected: 03/13/2024, Expires: 06/12/2024 [facility] Comment on above: Expected: 03/13/2024, Expires: Start: 03-13-2024 End: 06-12-2024 Insulin [Units/volume] in Serum or Plasma INSULIN ASSAY BLOOD Lab Routine Screening for diabetes mellitus Expected: 03/13/2024, Expires: 06/12/2024 [facility] Comment on above: Expected: 03/13/2024, Expires: Start: 03-13-2024 End: 03-13-2024 Patient encounter procedure 03/13/2024 10:20 AM EDT Office Visit OB/Gynecology [address] [place], [place] [id number] Angela Crawford MD [address] [place], [place] [id number] Morbid obesity with BMI of 50.0-59.9, adult ([facility]) [E66.01, Z68.43] OB/Gynecology Comment on above: Morbid obesity with BMI of 50.0-59.9, ad ult ([facility]) [E66.01, Z68.43] Start: 02-29-2024 End: 02-29-2024 Patient encounter procedure 02/29/2024 2:00 PM EDT Office Visit Rheumatology [address] [place] [address] [place] [address] [place] [address] Polyarthralgia [M25.50 Rheumatology Comment on above: Polyarthralgia [M25.50 Start: 01-29-2024 Covid-19 Vaccine ( season) Covid-19 Vaccine ( season) [facility] Start: 01-29-2024 Influenza vaccination [facility] Start: 11-22-2023 End: 11-22-2023 Patient encounter procedure 11/22/2023 10:00 AM EDT Office Visit OB/Gynecology [address] [place], [place] [id number] Manuela Pearce APRN.[facility] [address] [place] [address] ANNUAL OB/Gynecology Comment on above: ANNUAL Start: 09-06-2023 End: 12-06-2023 25-hydroxyvitamin D3 [Mass/volume] in Serum or Plasma VITAMIN D 25 HYDROXY Lab Routine Vitamin D deficiency Expected: 09/06/2023, Expires: 12/06/2023 [facility] Work Phone: Comment on above: Expected: 09/06/2023, Expires: Start: 09-06-2023 End: 12-06-2023 C reactive protein [Mass/volume] in Serum or Plasma C-REACTIVE PROTEIN (CRP) Lab Routine Polyarthralgia Elevated sed rate Expected: 09/06/2023, Expires: 12/06/2023 [facility] Work Phone: Comment on above: Expected: 09/06/2023, Expires: 4 Start: 09-06-2023 End: 12-06-2023 CBC W Auto Differential panel - Blood CBC + DIFF Lab Routine Anemia, unspecified type Expected: 09/06/2023, Expires: 12/06/2023 [facility] Work Phone: Comment on above: Expected: 09/06/2023, Expires: Start: 09-06-2023 End: 12-06-2023 Erythrocyte sedimentation rate SED RATE WESTERGREN Lab Routine Polyarthralgia Elevated sed rate Expected: 09/06/2023, Expires: 12/06/2023 [facility] Work Phone: Comment on above: Expected: 09/06/2023, Expires: Start: 09-06-2023 End: 12-06-2023 Ferritin [Mass/volume] in Serum or Plasma FERRITIN BLD Lab Routine Anemia, unspecified type Expected: 09/06/2023, Expires: 12/06/2023 [facility] Work Phone: Comment on above: Expected: 09/06/2023, Expires: Start: 09-06-2023 End: 12-06-2023 Hemoglobin A1c in Blood HGB A1C Lab Routine Prediabetes Expected: 09/06/2023, Expires: 12/06/2023 [facility] Work Phone: Comment on above: Expected: 09/06/2023, Expires: Start: 09-06-2023 End: 12-06-2023 Iron and Iron binding capacity panel - Serum or Plasma IRON + TIBC Lab Routine Anemia, unspecified type Expected: 09/06/2023, Expires: 12/06/2023 [facility] Work Phone: Comment on above: Expected: 09/06/2023, Expires: Start: 09-06-2023 End: 12-06-2023 Lipid 1996 panel - Serum or Plasma LIPID PANEL BASIC Lab Routine Prediabetes Expected: 09/06/2023, Expires: 12/06/2023 [facility] Work Phone: Comment on above: Expected: 09/06/2023, Expires: Start: 09-06-2023 End: 12-06-2023 Magnesium [Mass/volume] in Serum or Plasma MAGNESIUM BLD Lab Routine Gastroesophageal reflux disease, unspecified whether esophagitis present Expected: 09/06/2023, Expires: 12/06/2023 [facility] Work Phone: Comment on above: Expected: 09/06/2023, Expires: Start: 09-06-2023 End: 12-06-2023 Thyrotropin [Units/volume] in Serum or Plasma TSH BLD Lab Routine Acquired hypothyroidism Expected: 09/06/2023, Expires: 12/06/2023 [facility] Work Phone: Comment on above: Expected: 09/06/2023, Expires: Start: 09-06-2023 End: 12-06-2023 Thyroxine (T4) free [Mass/volume] in Serum or Plasma T4 FREE/FREE THYROX Lab Routine Acquired hypothyroidism Expected: 09/06/2023, Expires: 12/06/2023 [facility] Work Phone: Comment on above: Expected: 09/06/2023, Expires: 4 Start: 09-06-2023 End: 12-06-2023 Triiodothyronine (T3) [Mass/volume] in Serum or Plasma T3 BLD Lab Routine Acquired hypothyroidism Expected: 09/06/2023, Expires: 12/06/2023 [facility] Work Phone: Comment on above: Expected: 09/06/2023, Expires: Start: 07-26-2023 ANNUAL PCP TEAM CHRONIC DISEASE VISIT ANNUAL PCP TEAM CHRONIC DISEASE VISIT [facility] Start: 07-26-2023 BP CONTROLLED (<130/80) BP CONTROLLED (<130/80) [facility] Start: 07-01-2023 ANNUAL PCP TEAM CHRONIC DISEASE VISIT ANNUAL PCP TEAM CHRONIC DISEASE VISIT [facility] Start: 07-01-2023 BP CONTROLLED (<130/80) BP CONTROLLED (<130/80) [facility] Start: 06-01-2023 PAP TESTING PAP TESTING [facility] Start: 06-01-2023 Screening for malignant neoplasm of cervix Pap Testing [facility] Start: 05-03-2023 ANNUAL PCP TEAM CHRONIC DISEASE VISIT ANNUAL PCP TEAM CHRONIC DISEASE VISIT [facility] Start: 03-24-2023 ANNUAL PCP TEAM CHRONIC DISEASE VISIT ANNUAL PCP TEAM CHRONIC DISEASE VISIT [facility] Start: 01-28-2023 Influenza vaccination [facility] Start: 07-15-2022 COVID-19 VACCINE (#1) COVID-19 VACCINE (#1) [facility] Comment on above: Postponed from 05/15/1989 (Declined at t his time) Start: 07-15-2022 PNEUMOCOCCAL (1 - PCV) PNEUMOCOCCAL (1 - PCV) [facility] Comment on above: Postponed from 1994 (Declined at t his time) Start: 07-15-2022 Urine microalbumin profile DTAP,TDAP,TD (1 - Tdap) [facility] Comment on above: Postponed from 11/14/2007 (Declined at t his time) Start: 07-01-2022 End: 08-31-2022 Thyroglobulin Ab [Units/volume] in Serum or Plasma THYROGLOBULIN AB Lab Routine Subclinical hypothyroidism Expected: 07/01/2022, Expires: 08/31/2022 [facility] Work Phone: Comment on above: Expected: 07/01/2022, Expires: Start: 07-01-2022 End: 08-31-2022 THYROID PEROXIDASE ANTIBODY BLOOD THYROID PEROXIDASE ANTIBODY BLOOD Lab Routine Subclinical hypothyroidism Expected: 07/01/2022, Expires: 08/31/2022 [facility] Work Phone: Comment on above: Expected: 07/01/2022, Expires: Start: 05-03-2022 End: 07-03-2022 25-hydroxyvitamin D3 [Mass/volume] in Serum or Plasma VITAMIN D 25 HYDROXY Lab Routine Vitamin D deficiency Expected: 05/03/2022, Expires: 07/03/2022 [facility] Work Phone: Comment on above: Expected: 05/03/2022, Expires: 3 Start: 05-03-2022 End: 07-03-2022 C reactive protein [Mass/volume] in Serum or Plasma C-REACTIVE PROTEIN (CRP) Lab Routine Polyarthralgia Expected: 05/03/2022, Expires: 07/03/2022 [facility] Work Phone: Comment on above: Expected: 05/03/2022, Expires: 3 Start: 05-03-2022 End: 07-03-2022 CBC W Auto Differential panel - Blood CBC + DIFF Lab Routine Anemia, unspecified type Expected: 05/03/2022, Expires: 07/03/2022 [facility] Work Phone: Comment on above: Expected: 05/03/2022, Expires: 3 Start: 05-03-2022 End: 07-03-2022 Comprehensive metabolic 2000 panel - Serum or Plasma COMP METABOLIC PANEL Lab Routine Hypertension, essential Prediabetes Expected: 05/03/2022, Expires: 07/03/2022 [facility] Work Phone: Comment on above: Expected: 05/03/2022, Expires: 3 Start: 05-03-2022 End: 07-03-2022 Cyclic citrullinated peptide IgG Ab [Units/volume] in Serum or Plasma CCP ANTIBODY IGG Lab Routine Polyarthralgia Expected: 05/03/2022, Expires: 07/03/2022 [facility] Work Phone: Comment on above: Expected: 05/03/2022, Expires: 3 Start: 05-03-2022 End: 07-03-2022 Erythrocyte sedimentation rate SED RATE WESTERGREN Lab Routine Polyarthralgia Expected: 05/03/2022, Expires: 07/03/2022 [facility] Work Phone: Comment on above: Expected: 05/03/2022, Expires: 3 Start: 05-03-2022 End: 07-03-2022 Ferritin [Mass/volume] in Serum or Plasma FERRITIN BLD Lab Routine Anemia, unspecified type Expected: 05/03/2022, Expires: 07/03/2022 [facility] Work Phone: Comment on above: Expected: 05/03/2022, Expires: 3 Start: 05-03-2022 End: 07-03-2022 Hemoglobin A1c in Blood HGB A1C Lab Routine Prediabetes Expected: 05/03/2022, Expires: 07/03/2022 [facility] Work Phone: Comment on above: Expected: 05/03/2022, Expires: 3 Start: 05-03-2022 End: 07-03-2022 Iron and Iron binding capacity panel - Serum or Plasma IRON + TIBC Lab Routine Anemia, unspecified type Expected: 05/03/2022, Expires: 07/03/2022 [facility] Work Phone: Comment on above: Expected: 05/03/2022, Expires: 3 Start: 05-03-2022 End: 07-03-2022 Lipid 1996 panel - Serum or Plasma LIPID PANEL BASIC Lab Routine Prediabetes Expected: 05/03/2022, Expires: 07/03/2022 [facility] Work Phone: Comment on above: Expected: 05/03/2022, Expires: 3 Start: 05-03-2022 End: 07-03-2022 Nuclear Ab [Presence] in Serum by Immunoassay MAYLIN BLOOD Lab Routine Polyarthralgia Expected: 05/03/2022, Expires: 07/03/2022 [facility] Work Phone: Comment on above: Expected: 05/03/2022, Expires: 3 Start: 05-03-2022 End: 07-03-2022 Rheumatoid factor [Units/volume] in Serum or Plasma RHEUMATOID FACTOR BL Lab Routine Polyarthralgia Expected: 05/03/2022, Expires: 07/03/2022 [facility] Work Phone: Comment on above: Expected: 05/03/2022, Expires: 3 Start: 05-03-2022 End: 07-03-2022 Thyrotropin [Units/volume] in Serum or Plasma TSH BLD Lab Routine Acquired hypothyroidism Expected: 05/03/2022, Expires: 07/03/2022 [facility] Work Phone: Comment on above: Expected: 05/03/2022, Expires: 3 Start: 05-03-2022 End: 07-03-2022 Thyroxine (T4) free [Mass/volume] in Serum or Plasma T4 FREE/FREE THYROX Lab Routine Acquired hypothyroidism Expected: 05/03/2022, Expires: 07/03/2022 [facility] Work Phone: Comment on above: Expected: 05/03/2022, Expires: 3 Start: 05-03-2022 End: 07-03-2022 Triiodothyronine (T3) [Mass/volume] in Serum or Plasma T3 BLD Lab Routine Acquired hypothyroidism Expected: 05/03/2022, Expires: 07/03/2022 [facility] Work Phone: Comment on above: Expected: 05/03/2022, Expires: 3 Start: 06-01-2021 Screening for malignant neoplasm of cervix Cervical Cancer Screening [facility] Start: 2018 HPV TESTING HPV TESTING [facility] Start: 2018 Screening for malignant neoplasm of cervix HPV Testing [facility] Start: 11-14-2007 Urine microalbumin profile [facility] Start: 2006 BP CONTROLLED (<130/80) BP CONTROLLED (<130/80) [facility] Start: 05-15-1989 COVID-19 VACCINE (#1) COVID-19 VACCINE (#1) [facility] Start: 1988 HEPATITIS B (1 of 3 - 3-dose series) HEPATITIS B (1 of 3 - 3-dose series) [facility] Start: 1988 Hepatitis B Vaccine (1 of 3 - 3-dose series) Hepatitis B Vaccine (1 of 3 - 3-dose series) [facility] COVID & INFLUENZA A/ B & RSV PCR, ROUTINE COVID & INFLUENZA A/B & RSV PCR, ROUTINE Microbiology Routine URI, acute Ordered: 03/17/2024 [facility] Work Phone: Comment on above: Ordered: 03/17/2024 End: 03-13-2025 HOME SLEEP APNEA TEST (HSAT) HOME SLEEP APNEA TEST (HSAT) Procedures Routine Morbid obesity with BMI of 50.0-59.9, adult (HCC) ANDREW (obstructive sleep apnea) Elevated blood pressure reading without diagnosis of hypertension Malaise and fatigue 1 Occurrences starting 03/13/2024 until 03/13/2025 [facility] Comment on above: 1 Occurrences starting 03/13/2024 until 03/13/2025 PAP TEST PAP TEST Lab Jennifer gipson Screening for cervical cancer Encounter for screening for human papillomavirus (HPV) 11/22/2023 10:59 AM EDT [facility] Work Phone: End: 06-02-2023 PAP TITRATION PSG (CPAP, BIPAP, ASV) PAP TITRATION PSG (CPAP, BIPAP, ASV) Procedures Routine ANDREW (obstructive sleep apnea) 1 Occurrences starting 05/03/2022 until 06/02/2023 [facility] Work Phone: Comment on above: 1 Occurrences starting 05/03/2022 until 06/02/2023 End: 04-14-2025 XR Foot - bilateral AP and Lateral and oblique XR FOOT GENERAL 3V AP/LAT/OBL BILATERAL Radiology Routine Polyarthralgia 1 Occurrences starting 03/14/2024 until 04/14/2025 [facility] Comment on above: 1 Occurrences starting 03/14/2024 until 04/14/2025 End: 04-14-2025 XR Hand - bilateral PA and Lateral and Oblique XR HAND GENERAL 3V PA/LAT/OBL BILATERAL Radiology Routine Polyarthralgia 1 Occurrences starting 03/14/2024 until 04/14/2025 [facility] Comment on above: 1 Occurrences starting 03/14/2024 until 04/14/2025 End: 04-13-2025 XR Knee - bilateral 4 Views XR KNEE GENERAL 4V AP BOTH/PA BOTH/LAT/MERC BILATERAL Radiology Routine Polyarthralgia 1 Occurrences starting 03/14/2024 until 04/13/2025 [facility] Comment on above: 1 Occurrences starting 03/14/2024 until 04/13/2025 End: 04-13-2025 XR Lumbar spine 3 Views XR LUMBAR GENERAL 3V AP/LAT/L5-S1 Radiology Routine Polyarthralgia 1 Occurrences starting 03/14/2024 until 04/13/2025 [facility] Comment on above: 1 Occurrences starting 03/14/2024 until 04/13/2025 End: 04-14-2025 XR Sacroiliac Joint Views XR SACROILIAC JOINTS 2V AP PELVIS/FERGUESON Radiology Routine Polyarthralgia 1 Occurrences starting 03/14/2024 until 04/14/2025 [facility] Comment on above: 1 Occurrences starting 03/14/2024 until 04/14/2025 [facility] Immunizations Immunization Date Immunization Notes Care Provider Alexis mccann 09-06-2023 COVID-19 vaccine, ag e 12+ yr, season ([employer] Ursula Be APRN.CNP Work Phone: [facility] 02-24-2022 influenza, seasonal, injectable Osmani Marroquin MD Work Phone: [facility] 02-24-2022 influenza virus vacc ine, unspecified formulation Ursula Be COUNSELING PROGRAM LEADER.INSURANCE AGENCY MANAGER Work Phone: [facility] 06-09-2019 influenza, injectabl e, quadrivalent, contains preservative Ursula Be COUNSELING PROGRAM LEADER.INSURANCE AGENCY MANAGER Work Phone: [facility] 05-12-2015 influenza, injectabl e, quadrivalent, preservative free Osmani Marroquin MD Work Phone: [facility] 09-02-2014 tetanus toxoid, redu alisha diphtheria toxoid, and acellular pertussis vaccine, adsorbed Osmani Marroquin MD Work Phone: [facility] Payers Date Payer Category Payer Unknown [id number] 2017 Unknown 2017 Medicaid [id number] 1988 Unknown [id number] Social History Date Type Detail Facility Start: 10-17-2020 Light tobacco smoker (finding) [facility] Sex Assigned At [facility] Start: 03-24-2022 [facility] Start: 03-24-2022 End: 03-08-2024 Tobacco use and exposure Smokeless tobacco non-user [facility] Start: 03-24-2022 End: 03-17-2024 Alcohol intake Current drinker of alcohol (finding) [facility] Start: 03-24-2022 Tobacco Comment half a pack daily [facility] Start: 11-27-2014 Alcohol Comment rarely [facility] Start: 1988 Sex Assigned At Not on file [facility] Start: 05-03-2022 End: 03-08-2024 Tobacco smoking status NHIS Ex-smoker [facility] Work Phone: End: 01-28-2022 History of tobacco use Current smoker [facility] Work Phone: End: 01-28-2022 History of tobacco use Cigarette Smoker [facility] Work Phone: Start: 01-20-2023 End: 03-13-2024 History of Social function [facility] Start: 01-20-2023 End: 03-13-2024 Tobacco use panel [facility] Adult Depression Screening Assessment 0 [facility] Clinical Notes 12-09-2018 to 03-17-2024 Osmani Marroquin MD - 03/17/2024 11:01 AM Alberta Reyes MD - 03/14/2024 9:40 AM Angela Her MD - 03/13/2024 10:06 AM EDTPatient InstructionsPatient Instructions Note Date & Type Note Facility 03-17-2024 History of Presen t illness Narrative Patient presents with: Headache: ST, bodyaches x this AM, chest congestion HPI: Feeling sick this morning. Her daughter has been sick. Positive symptoms: Sore throat, Body Aches, Malaise, Headache, Cough, Nasal Congestion, Chills, Negative symptoms: Shortness of breath, Rhinorrhea, Nausea, Vomiting, Diarrhea, OTC: none MEDICATIONS: Current Outpatient Medications Medication Sig ARIPiprazole (ABILIFY) 10 mg tablet cloNIDine HCl (CATAPRES) 0.1 mg tablet busPIRone HCl 30 mg tablet Mirtazapine (REMERON) 7.5 mg tablet VYVANSE 50 mg capsule Take 1 capsule by mouth every afternoon. atomoxetine (STRATTERA) 40 mg capsule Take 1 capsule by mouth every afternoon. ondansetron orally disintegrating (ZOFRAN ODT) 4 mg disintegrating tablet Take 1 tablet by mouth every 8 hours as needed for nausea/vomiting. metFORMIN (GLUCOPHAGE) 500 mg tablet Take 1 tablet by mouth daily with breakfast. (Patient not taking: Reported on 11/22/2023) lamoTRIgine (LAMICTAL) 25 mg tablet Take 8 tablets by mouth daily at bedtime. naltrexone 50 mg tablet Take 1 tablet by mouth every afternoon. celecoxib (CELEBREX) 200 mg capsule Take 1 capsule by mouth once daily. thyroid, pork, (ARMOUR THYROID) 60 mg tablet Take 1 tablet by mouth once daily. thyroid (ARMOUR THYROID) 15 mg tablet Take 1 tablet by mouth once daily. Take with 60 mg dose for total daily dose of [address] (PROTONIX) 40 mg tablet Take 1 tablet by mouth daily before breakfast. Take on empty stomach, 1/2 hr before meal. gabapentin (NEURONTIN) 300 mg capsule Take 1 capsule by mouth twice daily. Cholecalciferol, Vitamin D3, 50 mcg (2,000 unit) cap Take 1 capsule by mouth once daily. buPROPion XL (WELLBUTRIN XL) 300 mg 24 hr tablet Take 1 tablet by mouth once daily. busPIRone (BUSPAR) 15 mg tablet Take 1 tablet by mouth three times daily. No current facility-administered medications for this visit. ALLERGIES: ALLERGIES Allergen Reactions Depakote [Divalproe* Rash Meloxicam Itching Nicotine Unknown, Rash VITALS: BP 132/78 Pulse 87 Temp 36.7 C (98 F) Resp 18 Wt (!) 157 kg (346 lb 2 oz) LMP 02/28/2024 (Approximate) SpO2 99% BMI 55.03 kg/m PHYSICAL EXAM: GEN: mildly ill appearing HEENT: PERRL, EOMI, conjunctiva clear Ears: canals clear. TMs without erythema, bulge, or effusion Sinuses: non-tender frontal sinus, non-tender maxillary sinuses Throat: moist mucous membranes, mild erythema, no exudate Neck: supple, no thyromegaly, no lymphadenopathy HEART: regular rate and rhythm, no murmurs LUNGS: clear to auscultation, no wheezes or crackles, no increased WOB Latest Ref Rng 05/05/2022 eGFR >=60 mL/min/1.73m 119 ASSESSMENT/PLAN: 1. URI, acute - ICD9: 465.9, ICD10: J06.9 - suspect viral URI - Discussed supportive care treatment. - COVID & INFLUENZA A/B & RSV PCR, ROUTINE -she would like Paxlovid prescribed if positive for COVID. She will hold BuSpar while taking the medication. Osmani Marroquin MD documented in this encounter [facility] 10-16-2024 History of Presen t illness Narrative Images from the original note were not included. Rheumatology Outpatient Clinic Date of Service: 03/14/2024 Patient: Swathi Wahl Medical Record: [id number] Primary Care Physician: Jony Martell MD Referring Provider: Ursula Be [address] [place] [address] Last Rheumatology visit: None at [facility] Chief complaint: New Patient Consultation requested by Ursula Be APRN.CNP for an opinion regarding polyarthralgia. My final recommendations will be communicated back to the requesting physician by way of shared Medical record or letter to requesting physician via US mail. History of Present Illness Swathi Walh is a 33 year old White female with medical history of anxiety, anemia, depression, hypothyroidism, bipolar disorder, history of recurrent miscarriages(6), bilateral carpal tunnel syndrome (EMG/NCV 07/2022 ), history of meth and heroin addiction presents on 03/14/2024 for an in-person visit for evaluation of New Patient. She is currently taking celecoxib. Swathi is both RF - 9 (05/05/2022) and CCP - 13.5 (05/05/2022) negative. Her most recent MAYLIN was negative (05/05/2022). 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 08/2023 Sed rate 29 CRP 1.4 Vitamin D 30 CBC unremarkable TSH normal 04/2022 RF/CCP negative MAYLIN negative Sed rate 38 CRP 2.8 CBC unremarkable CMP unremarkable Radiograph bilateral knees 09/2015-unremarkable Radiograph lumbar spine 01/2015-unremarkable Patient-Entered Data PAIN EVALUATION 03/14/2024 0700 Pain Level: 3 Pain Location: -- low back and hips Description: Aching Duration Units: Years Frequency: Continuous PROMIS Assessments 02/23/2016 PROMIS Assessments Physical Health Percentile 22 Mental Health Percentile 34 Pain Score 3 RAPID 3 [place] Activities of Daily Living No Data Dress self? - Get in and out of bed? - Walk outdoors? - Wash and dry body? - Get in and out of car? - RAPID 3 Disease Activity Weighed Score Levels: 0 - 1: Near Remission 1.3 - 2.0: Low Severity 2.3 - 4.0: Moderate Severity 4.3 - 10.0: High Severity No data to display Review of Systems ROS RHEUMATOLOGY Fever: Denies Change in weight: Denies Lymphadenopathy: Denies Mucosal ulcers: Denies Skin rash: Denies Photosensitive rash: Denies Alopecia: Denies Chest Pain: Denies Dyspnea: Denies Cough : Denies Difficulty swallowing: Denies Nausea/vomiting: Denies Heartburn: Denies Abdominal Pain: Denies Diarrhea/constipation :Denies Blood in stool : Denies Dysuria/hematuria: Denies Muscle pain: Denies Muscle weakness: Denies Numbness: Bilateral hands Headache: Denies change in vision: Denies Raynaud's: Denies Sicca: Dry eyes Past Medical History 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 In [facility] program. 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 Hypothyroidism Mood disorder (HCC) bipolar 1 Past Surgical History PAST SURGICAL HISTORY Procedure Laterality Date TONSILLECTOMY HX age 18 Allergy ALLERGIES Allergen Reactions Depakote [Divalproe* Rash Meloxicam Itching Nicotine Unknown, Rash Family History Mother has fibromyalgia, UCTD FAMILY HISTORY Problem Relation Age of Onset Diabetes Father Glaucoma Mother Diabetes Mother Kidney Disease Mother Stroke Mother Thyroid Mother hypo Heart Brother Cancer Maternal Grandmother Alcohol/Drug Paternal Grandmother Heart Paternal Grandfather Alcohol/Drug Paternal Aunt Alcohol/Drug Paternal Uncle Breast Cancer Other 2nd cousins Breast Cancer Other 2nd cousins Cervical Cancer Other 2nd cousins Cervical Cancer Other 2nd cousins Cervical Cancer Other 2nd cousins Social History Social History Tobacco Use Smoking status: Former Current packs/day: 0.00 Types: Cigarettes Quit date: 01/28/2022 Years since quittin.1 Smokeless tobacco: Never Tobacco comments: half a pack daily Vaping Use Vaping status: Never Used Substance Use Topics Alcohol use: Yes Comment: rarely Drug use: No Current Medications Current Outpatient Medications Medication Sig Mirtazapine (REMERON) 7.5 mg tablet VYVANSE 50 mg capsule Take 1 capsule by mouth every afternoon. atomoxetine (STRATTERA) 40 mg capsule Take 1 capsule by mouth every afternoon. ondansetron orally disintegrating (ZOFRAN ODT) 4 mg disintegrating tablet Take 1 tablet by mouth every 8 hours as needed for nausea/vomiting. lamoTRIgine (LAMICTAL) 25 mg tablet Take 8 tablets by mouth daily at bedtime. naltrexone 50 mg tablet Take 1 tablet by mouth every afternoon. celecoxib (CELEBREX) 200 mg capsule Take 1 capsule by mouth once daily. thyroid, pork, (ARMOUR THYROID) 60 mg tablet Take 1 tablet by mouth once daily. thyroid (ARMOUR THYROID) 15 mg tablet Take 1 tablet by mouth once daily. Take with 60 mg dose for total daily dose of [address] (PROTONIX) 40 mg tablet Take 1 tablet by mouth daily before breakfast. Take on empty stomach, 1/2 hr before meal. gabapentin (NEURONTIN) 300 mg capsule Take 1 capsule by mouth twice daily. Cholecalciferol, Vitamin D3, 50 mcg (2,000 unit) cap Take 1 capsule by mouth once daily. buPROPion XL (WELLBUTRIN XL) 300 mg 24 hr tablet Take 1 tablet by mouth once daily. busPIRone (BUSPAR) 15 mg tablet Take 1 tablet by mouth three times daily. metFORMIN (GLUCOPHAGE) 500 mg tablet Take 1 tablet by mouth daily with breakfast. (Patient not taking: Reported on 11/22/2023) No current facility-administered medications for this visit. Labs Latest Ref Rng & Units 11/27/2018 07/15/2021 05/05/2022 09/21/2023 CBC WBC 3.70 - 11.00 k/uL 7.65 6.90 7.36 7.22 Hemoglobin 11.5 - 15.5 g/dL 10.8 13.3 11.7 12.1 Hematocrit 36.0 - 46.0 % 33.0 41.8 36.9 38.2 Platelet Count 150 - 400 k/uL 261 234 277 257 Abs Neut (ANC) 1.45 - 7.50 k/uL 4.14 4.28 3.98 Abs Lymph 1.00 - 4.00 k/uL 2.27 2.41 2.61 Latest Ref Rng & Units 07/15/2021 05/05/2022 CMP Sodium 136 - 144 mmol/L 137 138 Potassium 3.7 - 5.1 mmol/L 4.5 4.0 Chloride 97 - 105 mmol/L 100 105 CO2 22 - 30 mmol/L 25 22 Glucose 74 - 99 mg/dL 105 111 BUN 7 - 21 mg/dL 14 14 Creatinine 0.58 - 0.96 mg/dL 0.66 0.66 Calcium 8.5 - 10.2 mg/dL 9.3 8.9 AST 13 - 35 U/L 15 19 ALT 7 - 38 U/L 18 21 Alkaline Phosphatase 34 - 123 U/L 71 70 Latest Ref Rng & Units 05/05/2022 09/21/2023 ESR, WSR WSR 0 - 20 mm/hr 38 29 Latest Ref Rng & Units 05/05/2022 09/21/2023 CRP CRP <0.9 mg/dL 2.8 1.4 Latest Ref Rng & Units 05/05/2022 RF and CCP Rheumatoid Factor <16 IU/mL <10 CCP Antibody IgG Qualitative Negative Negative CCP Antibody, IgG <20 Units <15 Latest Ref Rng & Units 07/25/2018 Hepatitis Screen Hep C Antibody IA Negative Negative Hep B Surface Ag Negative Negative Latest Ref Rng & Units 01/04/2019 01/11/2019 01/17/2019 01/19/2019 Urinalysis Protein, Urine Neg mg/dL neg neg neg Neg Latest Ref Rng & Units 05/05/2022 09/21/2023 Vitamin D Vitamin D 25 Hydroxy 31.0 - 80.0 ng/mL 25.3 30.7 Imaging Last XR Hand/Finger - Impression Only No resulted procedures found. Last MRI Hand - Impression Only No resulted procedures found. Last XR Chest - Impression Only XR CHEST PA/LAT Collected: 04/02/2015 9:03 AM (Final result) Impression: IMPRESSION: No evidence of active disease. Legal Office Administrator: VIKI Transcribe Date/Time: Apr 02 2015 10:41A ... Last XR Cervical Spine - Impression Only No resulted procedures found. Health Maintenance Current Immunizations Reviewed on 07/19/2015 Name Date COVID-19 vaccine ([employer]) 09/06/2023 influenza (IIV4) vaccine 06/09/2019 Physical Exam VITAL SIGNS: BP 132/74 Pulse 66 Wt 343 lb 14.7 oz (156.0kg) LMP 02/28/2024 GENERAL APPEARANCE: Well groomed. In no distress. SKIN: [place] scaly lesions over scalp with no erythema or plaque, no other skin rash, no skin thickening, nodules, calcifications, discoloration. HENT: Normal external examination of the ears and nose, lips, oropharynx and tongue. No oropharyngeal lesions, exudate, or sores. NECK: No mass or asymmetry, no lymphadenopathy. RESPIRATORY: Normal respiratory effort. Clear to auscultation, no wheeze. CARDIOVASCULAR: regular, normal rate, normal heart sounds, no murmur or rub ABDOMEN: BS normal. No bruits, NEUROLOGIC: Alert and oriented x 3. Motor exam: Normal muscle strength grossly. Normal bulk and tone. MUSCULOSKELETAL EXAMINATION: Soft tissue tender points: Diffuse tenderness to palpation along scapular blades, arms, forearms, thighs Upper extremities: Shoulders: no tenderness to palpation. No swelling or effusion. Elbows: Full ROM in flexion and extension. No swelling or effusion. No tenderness to palpation to the joint line, olecranon, medial or lateral epicondyles. Wrists: Full ROM in all ny. No swelling or synovitis. No tenderness to palpation Hands: Full ROM in flexion and extension. No swelling or synovitis along the MCPs, PIPs, and DIPs. No tenderness along the MCPs, PIPs, and DIPs. Lower extremities: Hips: tenderness to palpation along greater trochanter Knees: No swelling or effusion. No tenderness to palpation. Ankles: Full ROM in all ny. No swelling or effusion. No tenderness to palpation Feet: No effusion. No tenderness to palpation. Diagnoses: (M25.50) Polyarthralgia Impression and Plan Polyarthralgia Has been having widespread body pain worse over low back for last 2 years with no history of joint swelling, EMS for about 20 minutes Noted elevated sed rate and CRP in the setting of BMI of 54 Had negative MAYLIN, RF, CCP in 2021 has greasy scaly lesions over scalp with no erythema or plaque consistent with seborrheic dermatitis, I do not see any lesions suggestive of psoriasis No synovitis or effusion on exam, widespread tenderness mostly over muscles and soft tissues on exam Also has a mother with chronic pain syndrome Her signs and symptoms are more consistent with chronic pain syndrome/chronic fatigue, also likely has some degenerative changes in her spine and knees, to further evaluate for inflammatory arthritis, I will obtain MAYLIN, anti-DAKOTA, dsDNA, RF, CCP, CBC, CMP, sed rate, CRP, radiograph bilateral hands, feet, knees, lumbar spine and SI joint Since anti-inflammatory has not helped and gabapentin has helped, recommend psychiatrist/PCP to consider increasing dose of gabapentin or switching to Lyrica Did not tolerate duloxetine in the past Consider referral to chronic pain recovery clinic 2. Healthcare maintenance/Malignancy screening Defer to PCP Orders this visit: Office Visit on 03/14/24 XR FOOT GENERAL 3V AP/LAT/OBL BILATERAL XR HAND GENERAL 3V PA/LAT/OBL BILATERAL XR KNEE GENERAL 4V AP BOTH/PA BOTH/LAT/MERC BILATERAL XR LUMBAR GENERAL 3V AP/LAT/L5-S1 XR SACROILIAC JOINTS 2V AP PELVIS/FERGUESON MAYLIN BY IFA SCREEN ANTI DAKOTA ID DNA AB DS + CONF BLD COMPLETE BLOOD COUNT AND DIFFERENTIAL COMPREHENSIVE METABOLIC PANEL SEDIMENTATION RATE, WESTERGREN C-REACTIVE PROTEIN CCP ANTIBODY IGG RHEUMATOID FACTOR CONSULT TO RHEUM/IMMUN DISEASE Mirtazapine (REMERON) 7.5 mg tablet Return for Pending test results. I spent a total of 60 minutes on the date of the service which included preparing to see the patient, [id number] patient care, completing clinical documentation, obtaining and/or reviewing separately obtained history, performing a medically appropriate examination, counseling and educating the patient/family/caregiver, and ordering medications, tests, or procedures. This note was partially generated with the assistance of [employer] voice recognition software. An attempt was made to correct any dictation errors however there may be some incorrect words, spellings, and punctuation. Alberta Edward MD [facility] Rheumatology Associate Staff [facility] Race Stewardmobility manager [facility] documented in this encounter [facility] 03-14-2024 Note HNO ID: [id number] Author: ALBERTA EDWARD MD Service: ? Author Type: Physician Type: Progress Notes Filed: 03/14/2024 10:34 Note Text: Rheumatology Outpatient Clinic Date of Service: 03/14/2024 Patient: Swathi Wahl Medical Record: [id number] Primary Care Physician: Jony Martell MD Referring Provider: Ursula Be [address] [facility] [address] Last Rheumatology visit: None at [facility] Chief complaint: New Patient Consultation requested by Ursula Be APRN.CNP for an opinion regarding polyarthralgia. My final recommendations will be communicated back to the requesting physician by way of shared Medical record or letter to requesting physician via US mail. History of Present Illness Swathi Wahl is a 33 year old White female with medical history of anxiety, anemia, depression, hypothyroidism, bipolar disorder, history of recurrent miscarriages(6), bilateral carpal tunnel syndrome (EMG/NCV 07/2022 ), history of meth and heroin addiction presents on 03/14/2024 for an in-person visit for evaluation of New Patient. She is currently taking celecoxib. Swathi is both RF - 9 (05/05/2022) and CCP - 13.5 (05/05/2022) negative. Her most recent MAYLIN was negative (05/05/2022). 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 08/2023 Sed rate 29 CRP 1.4 Vitamin D 30 CBC unremarkable TSH normal 04/2022 RF/CCP negative MAYLIN negative Sed rate 38 CRP 2.8 CBC unremarkable CMP unremarkable Radiograph bilateral knees 09/2015-unremarkable Radiograph lumbar spine 01/2015-unremarkable Patient-Entered Data PAIN EVALUATION 03/14/2024 0700 Pain Level: 3 Pain Location: -- low back and hips Description: Aching Duration Units: Years Frequency: Continuous PROMIS Assessments 02/23/2016 PROMIS Assessments Physical Health Percentile 22 Mental Health Percentile 34 Pain Score 3 RAPID 3 Cruz Activities of Daily Living No Data Dress self? - Get in and out of bed? - Walk outdoors? - Wash and dry body? - Get in and out of car? - RAPID 3 Disease Activity Weighed Score Levels: 0 - 1: Near Remission 1.3 - 2.0: Low Severity 2.3 - 4.0: Moderate Severity 4.3 - 10.0: High Severity No data to display Review of Systems ROS RHEUMATOLOGY Fever: Denies Change in weight: Denies Lymphadenopathy: Denies Mucosal ulcers: Denies Skin rash: Denies Photosensitive rash: Denies Alopecia: Denies Chest Pain: Denies Dyspnea: Denies Cough : Denies Difficulty swallowing: Denies Nausea/vomiting: Denies Heartburn: Denies Abdominal Pain: Denies Diarrhea/constipation :Denies Blood in stool : Denies Dysuria/hematuria: Denies Muscle pain: Denies Muscle weakness: Denies Numbness: Bilateral hands Headache: Denies change in vision: Denies Raynaud's: Denies Sicca: Dry eyes Past Medical History 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 In [facility] program. 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 Hypothyroidism Mood disorder (HCC) bipolar 1 Past Surgical History PAST SURGICAL HISTORY Procedure Laterality Date TONSILLECTOMY HX age 18 Allergy ALLERGIES Allergen Reactions Depakote [Divalproe* Rash Meloxicam Itching Nicotine Unknown, Rash Family History Mother has fibromyalgia, UCTD FAMILY HISTORY Problem Relation Age of Onset Diabetes Father Glaucoma Mother Diabetes Mother Kidney Disease Mother Stroke Mother Thyroid Mother hypo Heart Brother Cancer Maternal Grandmother Alcohol/Drug Paternal Grandmother Heart Paternal Grandfather Alcohol/Drug Paternal Aunt Alcohol/Drug Paternal Uncle Breast Cancer Other 2nd cousins Breast Cancer Other 2nd cousins Cervical Cancer Other 2nd cousins Cervical Cancer Other 2nd cousins Cervical Cancer Other 2nd cousins Social History Social History Tobacco Use Smoking status: Former Current packs/day: 0.00 Types: Cigarettes Quit date: 01/28/2022 Years since quittin.1 Smokeless tobacco: Never Tobacco comments: half a pack daily Vaping Use Vaping status: Never Used Substance Use Topics (more content not included)... [facility] 03-13-2024 Note HNO ID: [id number] Author: ANGELA CRAWFORD MD Service: ? Author Type: Physician Type: Progress Notes Filed: 03/13/2024 12:22 Note Text: Patient Summary: Swathi Wahl is a 33 year old female with obesity who presents for an initial evaluation of overweight/obesity to treat and prevent co-morbidities and is interested in combination of behavioral and pharmacological. Motivation for seeking treatment for the disease of overweight/obesity : She wants a better quality of life with her daughter. She is so tired and doesn't have the energy to do what she wants with her daughter. Goal weight: 230 lb Lowest recall weight: 220 lb Highest non- recall weight: 378 lb Patient identified barriers to weight loss: Lack of energy to have motivation to lose weight. She struggles with depression and emotionally eats. Weight History: She reports a strong family history of obesity and childhood weight gain. She states her weight gain is related to the following factors, including reduced physical activity, consumption of unhealthy foods, and depression . Difficulty losing weight? She has found it difficult to lose weight her whole life. History of weight loss with regain? Yes she lost 100 lbs in 2017 while using meth and heroin and then gained it back due to stress. Sober from ETOH since 2021 Clean from Meth and Heroin since 2019 - Last Wt 03/13/24 : (!) 156.5 kg (345 lb) 5% weight loss = 0 lbs, 10% weight loss = 0 lbs WEIGHT GRAPH: Diet/Nutrition overview: Awake - 6am B - 4 ego waffles- small amount of syrup, celcius energy drink S - sometimes peanuts or fruit snacks if she feels shaky (2x week) L - S - D - 5-6pm eats large portions- nigerian meals- tacos, burritos, meatloaf, lasagna, roast, green beans S - typically Fluids: milk (whole milk)- 16oz glass 3x day, 16oz water bottle 4-7 per day Bedtime -7-9pm Quality of diet: 24hr recall suggests in between diet. Characterization of diet:Unstructured, excessive cravings, evening snacking, increased consumption of sugar sweetened beverages (milk), and skip meals. Worm Sorter of impaired eating habits:excessive hunger, boredom, emotion, and stress Eating Disorder binge eating Cravings: carbs Sleep Duration: 10 hours. ANDREW YES ; CPAP NO - last sleep study 2014 Stress Stress:yes , Cause:Personal - mother is disabled, father is trigger, daughter is at difficult age possible ADHD Obesity Related Comorbidities: Prior Weight Loss Surgery:No 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 In [facility]. 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 Hypothyroidism Mood disorder (HCC) bipolar 1 PAST SURGICAL HISTORY Procedure Laterality Date TONSILLECTOMY HX age 18 FAMILY HISTORY Problem Relation Age of Onset Diabetes Father Glaucoma Mother Diabetes Mother Kidney Disease Mother Stroke Mother Thyroid Mother hypo Heart Brother Cancer Maternal Grandmother Alcohol/Drug Paternal Grandmother Heart Paternal Grandfather Alcohol/Drug Paternal Aunt Alcohol/Drug Paternal Uncle Breast Cancer Other 2nd cousins Breast Cancer Other 2nd cousins Cervical Cancer Other 2nd cousins Cervical Cancer Other 2nd cousins Cervical Cancer Other 2nd cousins Social History Tobacco Use Smoking status: Former Current packs/day: 0.00 Types: Cigarettes Quit date: 01/28/2022 Years since quittin.1 Smokeless tobacco: Never Tobacco comments: half a pack daily Vaping Use Vaping status: Never Used Substance Use Topics Alcohol use: Yes Comment: rarely Drug use: No AOM Medications: Bupropion and Naltrexone- taking through set up technician Weight Promoting Medications: gabapentin and Other lamotrigine Diet/weight loss History: Past weight loss attempts? anti-obesity medications Phentermine. Diet and exercise Exercise: Regular exercise: walking Strength/resistance exercise:no Barriers to regular exercise? yes - joint pain and skin pain Work-related activity:Active. 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 [facility] 03-13-2024 History of Presen t illness Narrative Patient Summary: Swathi Wahl is a 33 year old female with obesity who presents for an initial evaluation of overweight/obesity to treat and prevent co-morbidities and is interested in combination of behavioral and pharmacological. Motivation for seeking treatment for the disease of overweight/obesity : She wants a better quality of life with her daughter. She is so tired and doesn't have the energy to do what she wants with her daughter. Goal weight: 230 lb Lowest recall weight: 220 lb Highest non- recall weight: 378 lb Patient identified barriers to weight loss: Lack of energy to have motivation to lose weight. She struggles with depression and emotionally eats. Weight History: She reports a strong family history of obesity and childhood weight gain. She states her weight gain is related to the following factors, including reduced physical activity, consumption of unhealthy foods, and depression . Difficulty losing weight? She has found it difficult to lose weight her whole life. History of weight loss with regain? Yes she lost 100 lbs in 2017 while using meth and heroin and then gained it back due to stress. Sober from ETOH since 2021 Clean from Meth and Heroin since 2018 - Last Wt 03/13/24 : (!) 156.5 kg (345 lb) 5% weight loss = 0 lbs, 10% weight loss = 0 lbs WEIGHT GRAPH: Diet/Nutrition overview: Awake - 6am B - 4 ego waffles- small amount of syrup, celcius energy drink S - sometimes peanuts or fruit snacks if she feels shaky (2x week) L - S - D - 5-6pm eats large portions- nigerian meals- tacos, burritos, meatloaf, lasagna, roast, green beans S - typically Fluids: milk (whole milk)- 16oz glass 3x day, 16oz water bottle 4-7 per day Bedtime -7-9pm Quality of diet: 24hr recall suggests in between diet. Characterization of diet:Unstructured, excessive cravings, evening snacking, increased consumption of sugar sweetened beverages (milk), and skip meals. Worm Sorter of impaired eating habits:excessive hunger, boredom, emotion, and stress Eating Disorder binge eating Cravings: carbs Sleep Duration: 10 hours. ANDREW YES ; CPAP NO - last sleep study 2014 Stress Stress:yes , Cause:Personal - mother is disabled, father is trigger, daughter is at difficult age possible ADHD Obesity Related Comorbidities: Prior Weight Loss Surgery:No 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 In [facility]. 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 Hypothyroidism Mood disorder (HCC) bipolar 1 PAST SURGICAL HISTORY Procedure Laterality Date TONSILLECTOMY HX age 18 FAMILY HISTORY Problem Relation Age of Onset Diabetes Father Glaucoma Mother Diabetes Mother Kidney Disease Mother Stroke Mother Thyroid Mother hypo Heart Brother Cancer Maternal Grandmother Alcohol/Drug Paternal Grandmother Heart Paternal Grandfather Alcohol/Drug Paternal Aunt Alcohol/Drug Paternal Uncle Breast Cancer Other 2nd cousins Breast Cancer Other 2nd cousins Cervical Cancer Other 2nd cousins Cervical Cancer Other 2nd cousins Cervical Cancer Other 2nd cousins Social History Tobacco Use Smoking status: Former Current packs/day: 0.00 Types: Cigarettes Quit date: 01/28/2022 Years since quittin.1 Smokeless tobacco: Never Tobacco comments: half a pack daily Vaping Use Vaping status: Never Used Substance Use Topics Alcohol use: Yes Comment: rarely Drug use: No AOM Medications: Bupropion and Naltrexone- taking through set up technician Weight Promoting Medications: gabapentin and Other lamotrigine Diet/weight loss History: Past weight loss attempts? anti-obesity medications Phentermine. Diet and exercise Exercise: Regular exercise: walking Strength/resistance exercise:no Barriers to regular exercise? yes - joint pain and skin pain Work-related activity:Active. 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 Current Contraception: none Obesity ROS/ FHx GEN: Fatigue:yes CV: h/o palpitations/cardiac arrhythmia, Chest pain: no HTN: YES (today- no dx) PULM: Asthma:no GI: GERD:yes ; Gallstones:no ; Fatty liver disease:no Pancreatitis: no MSK: Joint Pain:yes (knees, hip, lower back) : Nephrolithiasis: no Symptoms of PCOS: no NEURO: Migraines/HERNANDEZ: no; H/o seizures: no Glaucoma:no; Cataracts no Symptoms of or History of pseudotumor cerebri:no Family or personal History of MEN2 or Medullary thyroid cancer: no PE BP 144/84 Pulse 90 Ht 168.9 cm (5' 6.5 ) Wt (!) 156.5 kg (345 lb) LMP 02/28/2024 (Approximate) SpO2 99% BMI 54.85 kg/m Waist Circumference: 63 Neck Circumference: 18 GENERAL: Female in NAD. General adiposity. SKIN: acanthosis nigricans no, Skin tags: yes Hirsutism: no HEENT: PERRL, No supraclavicular adiposity. No dorsal adiposity. ABDOMEN: Large pannus; EXTREMITIES: peripheral edema: yes Results: reviewed with the patient No visits with results within 3 Month(s) from this visit. Latest known visit with results is: Office Visit on 11/22/2023 Component Date Value Ref Range Status Case Report 11/22/2023 Final Value:Gynecologic Cytology Report Case: [id number] Authorizing Provider: Manuela Pearce APRN.CNM Collected: 11/22/2023 10:59 AM Ordering Location: OB/Gynecology Received: 11/22/2023 12:11 PM First Screen: Oliver, Carey, CT, ASCP Specimen: Pap Test, ThinPrep, Cervix Specimen Adequacy 11/22/2023 Satisfactory for interpretation. Final Interpretation 11/22/2023 Negative for intraepithelial lesion or malignancy. Final Clinical History 11/22/2023 Routine Exam Final LMP 11/22/2023 Final Value:10/31/2023 HPV Reflex 11/22/2023 Yes HPV Final Pap Disclaimer 11/22/2023 Final Value:This result contains rich text formatting which cannot be displayed here. Performing Lab 11/22/2023 Final Value:This result contains rich text formatting which cannot be displayed here. High Risk HPV Type 16 DNA 11/22/2023 Not detected Not detected Final High Risk HPV Type 18 DNA 11/22/2023 Not detected Not detected Final High Risk HPV Other Type DNA 11/22/2023 Not detected Not detected Final Impression: Swathi Wahl is a 33 year old Female with Class III obesity (Body mass index is 54.85 kg/m .) who has childhood obesity with gradual weight gain despite several weight loss attempts. The causes of her obesity are multifactorial, biological, psychological and social and environmental. Specific factors include a genetic component related to a strong family of obesity, exposure to weight gain promoting medication(s) , increased consumption of high calorie/process foods, irregular eating patterns , suboptimal physical activity, and post weight retention. She has several weight-related medical comorbidities which increase her cardiovascular mortality risk. There are additional metabolic obesity complications including pre-diabetes, dyslipidemia, hypertension, obstructive sleep apnea, and vitamin D deficiency. Other medical conditions as above. Regarding her lifestyle, as above, she has several behavioral contributors; her physical activity is suboptimal. Overall, it is clear that her quality of life is severely compromised by her weight. It is likely a combination of weight loss therapies will be needed. She appears motivated today. Plan: -- Based on the severity and resistance of the obesity/overweight with co-morbidities, I believe a open to all options intervention is the best and most appropriate retirement therapeutic option. -- We discussed several strategies to track food intake and increase mindfulness around eating while will decrease calorie intake. She was counseled on the following: Eating primarily whole foods. Limit carbs, especially processed carbs. Do not drink your calories 30 grams of protein for breakfast decreases your hunger during the day by up to 40 % Premier Protein or generic 30 gm protein 1 gm sugar Walk for 15 minutes immediately a meal. -- Encouraged the patient to improve her physical activity. Although cardiovascular exercise is most beneficial for weight loss initially, we discussed healthy muscle from a combination of resistance training and cardiovascular exercise is the best retirement plan. An overall goal of 150-200 minutes per week of exercise has been effective in weight loss and maintenance. -- Reviewed that monitoring weight daily and food intake can have a positive impact on overall weight loss and maintenance of weight loss. Activity tracking can be used to stay on target for exercise however should not be used to reward oneself She understands that there can be limitations of pharmacotherapy due to contraindications, side effects and cost. Patient was told to contact her insurance company to see what AOMs and supervised behavioral medical appointments are currently covered. Patient understands she will have more success when following a healthy lifestyle. We reviewed continued use of online tracking of daily weights, food journal and if desired physical activity. We reviewed that during management she is to report any concerning side effects of any pharmacotherapy she is placed on. She understands that she will need routine follow up in the office. Prior to any virtual visits in the future she will need to check her Blood pressure, weight, and pulse. -Labs ordered and reviewed what was in EPIC - CONSULT TO BARIATRICS placed- pt reports has filled out in past but never heard back- pt to message me when completed and I will send chart to make sure program coordinator follows up - Discussed not candidate for phentermine. Consider Trulicity / topiramate. Reviewed both. Will need BC for Topiramate- pt prefers POP - referral to nutrition placed- [facility] referral placed and sleep study - will notify patient of lab results. (Z13.220) Screening cholesterol level (primary encounter diagnosis) (E66.01, Z68.43) Morbid obesity with BMI of 50.0-59.9, adult (HCC) (Z13.0) Screening for deficiency anemia (Z13.1) Screening for diabetes mellitus (Z13.228) Screening for metabolic disorder (Z13.29) Screening for thyroid disorder (Z13.21) Encounter for vitamin deficiency screening Prescription instructions reviewed with patient as applicable. Potential red flag symptoms discussed with the patient. Reviewed appropriate action plan to take if red flag symptoms occur. Patient agreeable to treatment plan. -- follow-up visit in 5 weeks for management of above interventions I spent a total of 70 minutes on the date of the service which included preparing to see the patient, [id number] patient care, completing clinical documentation, obtaining and/or reviewing separately obtained history, performing a medically appropriate examination, counseling and educating the patient/family/caregiver, and ordering medications, tests, or procedures. Angela Fonseca MD, FACOG, DABOM documented in this encounter [facility] 03-13-2024 Instructions Angela Crawford MD - 03/13/2024 10:06 AM EDT Weight Management: You have taken the initiative to become a healthier version of yourself and to decrease the risks that come with the diagnosis of obesity or being overweight. We are happy to help you along this journey but know this is a lifetime commitment to yourself. Losing just 3-10 % of your body weight can decrease your risks of many other serious diseases like diabetes, heart disease, osteoarthritis, hypertension, cancer and so many others. During this time you will have triumphs, setbacks and plateaus- your body will fight against you but we are here to give you the tools and the resources to continue to reach your goals. We recommend during this time that you track your weight daily or at least five times per week as well as tracking your nutrition. You may track your activity but do not use hitting your fitness goals as a reward system as this can derail your success. We recommend weekly physical activity of 150-200 min/week-although physical exercise, this will be especially important for weight maintenance. Exercise can have many other benefits including improving insulin resistance, improving balance, bone health, improving mental health and cardiovascular health. Do not feel overwhelmed - we will discuss this more at your visits. Our time will be limited with each visit but we will try to touch on factors that are important to you and to your overall goals. We will try to set a goal at the end of each visit and then decide on what we want to accomplish with your upcoming visits. On your After Visit Summary (AVS), we will provide you with information that may be useful during this journey so please remember to read the information given. Check your AVS a few days after your appointment because we may have added more information specifically for you. Remember that if you are placed on medications, they are tools that can help you succeed but you must put in the work. Your nutrition will be the main factor. There are medications that work well for some and not for others- so it may take time to find the right combination for your body's needs. Please remember that factors such as other health co-morbidities one might have, as well as insurance coverage, will play a factor in determining which medications you can take. Most of the newer medications that are all the craze ,injectables, may not be covered or will only be covered if you fail months of oral medications or have Type 2 diabetes so please be patient with the process. It would be beneficial for you to determine what your insurance covers as far as Anti-Obesity Medications (AOMs), Nutritional Counseling, behavioral intervention and weight loss surgery. Please call your health insurance prior to your first appointment and write down coverage for each of those therapies. Most importantly, remember that ultimately our goal is to help you get to a healthier weight which will decrease your overall health risks. We will work together as a team and try to reach your personalized goals as well. Follow-up appointments Please arrive to follow-up visits a minimum of 15 minutes prior to your appointment. Follow-up weight management visits can be virtual. You will need to report a current blood pressure, heart rate (pulse) and weight at the beginning of each virtual appointment so you will need to have a reliable BP cuff, either wrist or upper arm. If you need to reschedule your appointment time or switch from an in-office visit to a virtual visit or vice versa, you need to call our office as we have designated appointment slots. This should not be done on [facility] as you will not be scheduled appropriately and will need to be rescheduled. We appreciate that you have entrusted us with your health and know that we are committed to this process with you. Sincerely, Angela Santos MD, DMITRIY YING & Latasha Esquivel CNP Advanced Education from the [employer] Obesity Obesity is a disease that affects nearly one-third of the adult [place] population (approximately 60 million). The number of overweight and obese Americans has continued to increase since 1960, a trend that is not slowing down. Today, 64.5 percent of adult Americans (about 127 million) are categorized as being overweight or obese. Each year, obesity causes at least 300,000 excess deaths in the [place] and healthcare costs of [place] adults with obesity amount to approximately $100 billion. (AOA) Obesity is a complex, multi-factorial chronic disease involving: Environmental (social and cultural) The tendency toward obesity is a result of our environment: lack of physical activity along with high-calorie, low-cost foods. Home, work, school, and even the community can inhibit a healthy lifestyle. Genetic (Hereditary plays a large role in determining how susceptible people are to overweight and obesity). Genes also influence how the body donald calories for energy and stores fat. Physiologic, metabolic, behavioral (eating too many calories while not getting enough exercise) and psychological components. It is the second leading cause of preventable in the [place] Behavioral changes brought on by economic development, modernization and urbanization have been linked to the rise in global obesity. Calculating BMI Body Mass Index (BMI) is a measurement tool used to determine excess body weight. Overweight is defined as a BMI of 25 or more, obesity is 30 or more, and severe obesity is 40 or more. You can visit www.nhlbi.nih.gov to estimate your BMI. Obesity Related Health Conditions The morbidity and mortality risk from being overweight is proportional to its degree. Individuals with morbid obesity, therefore, have the highest risk for developing numerous illnesses that often reduce mobility and quality of life due to their excess weight. In particular, type 2 diabetes, gallbladder disease and osteoarthritis have been found to increase concurrently with higher BMI. Premature , a 20-year shorter life span, has also been found in individuals with morbid obesity. All of the systems that make the body function are affected by morbid obesity. Type 2 diabetes Gallbladder disease and gallstones Liver disease Osteoarthritis, a disease in which the joints deteriorate. This is possibly the result of excess weight on the joints. Gout, another disease affecting the joints Pulmonary (breathing) problems, including sleep apnea in which a person can stop breathing for a short time during sleep Reproductive problems in women, including menstrual irregularities and infertility Gastroesophageal reflux/heartburn Hypertension Heart Disease Depression Psychological disorders/social impairments Urinary Stress Incontinence Obesity is also linked to higher rates of certain types of cancer. Obese men are more likely than non-obese men to from cancer of the colon, rectum, or prostate. Obese women are more likely than non-obese women to from cancer of the gallbladder, breast, uterus, cervix, or ovaries [email or web address] [email or web address] - Eat primarily whole foods. Limit carbs, especially processed carbs. Eat - Meat, vegetables and fruits with skin on if possible, eggs, cheese. - Do not drink your calories - 30 grams of protein for your first meal of the day decreases your hunger during the day by up to 40 %. Options include: Premier Protein or generic 30 gm protein 1 gm sugar or 5 eggs or 2-3 eggs and some unbreaded meat and/or cheese. No fruit, vegetables, bread, grain, yogurt, Smoothies, etc. - Walk for 15 minutes immediately after meal. documented in this encounter [facility] 03-08-2024 Note HNO ID: [id number] Author: MICHELLE ROBERTS APRN.INSURANCE AGENCY MANAGER Service: ? Author Type: Nurse Practitioner Type: Progress Notes Filed: 03/08/2024 09:07 Note Text: This note was created using NoteWriter. Subjective Swathi Rivers Workman is a 33 year old female. HPI Pt has had diarrhea and nausea since yesterday. Pt's daughter had similar symptoms which have improved. Review of Systems Constitutional: Negative for fever. Gastrointestinal: Positive for diarrhea and nausea. Negative for abdominal pain, blood in stool and vomiting. Objective BP 140/86 Pulse 100 Temp 36.3 ?C (97.4 ?F) Resp 21 Wt (!) 156.8 kg (345 lb 10.9 oz) LMP 10/31/2023 (Approximate) SpO2 97% BMI 54.90 kg/m? Physical Exam Vitals and nursing note reviewed. Constitutional: General: She is not in acute distress. Appearance: Normal appearance. She is not ill-appearing. HENT: Head: Normocephalic. Mouth/Throat: Mouth: Mucous membranes are moist. Eyes: Conjunctiva/sclera: Conjunctivae normal. Cardiovascular: Rate and Rhythm: Normal rate and regular rhythm. Pulmonary: Effort: Pulmonary effort is normal. Breath sounds: Normal breath sounds. Abdominal: Tenderness: There is no abdominal tenderness. There is no guarding. Musculoskeletal: General: Normal range of motion. Cervical back: Normal range of motion. Skin: General: Skin is warm and dry. Neurological: General: No focal deficit present. Mental Status: She is alert. Psychiatric: Mood and Affect: Mood normal. Behavior: Behavior normal. Assessment and Plan ASSESSMENT/PLAN: 1. Nausea - ICD9: 787.02, ICD10: R11.0 (primary diagnosis) Patient given a prescription for Zofran. Instructed to attempt to hydrate with fluids containing increase calories and electrolytes. She should monitor that she urinates at least 3-4 times per day. -Work note given - ONDANSETRON 4 MG DISINTEGRATING TABLET 2. Diarrhea, unspecified type - ICD9: 787.91, ICD10: R19.7 As above -We also did discuss the risks and benefits of antidiarrheal medications. Patient prefers not to take them at this time. Michelle Roberts APRN.[facility] 03-08-2024 History of Presen t illness Narrative This note was created using NoteWriter. Subjective Swathi Rivers Workman is a 33 year old female. HPI Pt has had diarrhea and nausea since yesterday. Pt's daughter had similar symptoms which have improved. Review of Systems Constitutional: Negative for fever. Gastrointestinal: Positive for diarrhea and nausea. Negative for abdominal pain, blood in stool and vomiting. Objective BP 140/86 Pulse 100 Temp 36.3 C (97.4 F) Resp 21 Wt (!) 156.8 kg (345 lb 10.9 oz) LMP 10/31/2023 (Approximate) SpO2 97% BMI 54.90 kg/m Physical Exam Vitals and nursing note reviewed. Constitutional: General: She is not in acute distress. Appearance: Normal appearance. She is not ill-appearing. HENT: Head: Normocephalic. Mouth/Throat: Mouth: Mucous membranes are moist. Eyes: Conjunctiva/sclera: Conjunctivae normal. Cardiovascular: Rate and Rhythm: Normal rate and regular rhythm. Pulmonary: Effort: Pulmonary effort is normal. Breath sounds: Normal breath sounds. Abdominal: Tenderness: There is no abdominal tenderness. There is no guarding. Musculoskeletal: General: Normal range of motion. Cervical back: Normal range of motion. Skin: General: Skin is warm and dry. Neurological: General: No focal deficit present. Mental Status: She is alert. Psychiatric: Mood and Affect: Mood normal. Behavior: Behavior normal. Assessment and Plan ASSESSMENT/PLAN: 1. Nausea - ICD9: 787.02, ICD10: R11.0 (primary diagnosis) Patient given a prescription for Zofran. Instructed to attempt to hydrate with fluids containing increase calories and electrolytes. She should monitor that she urinates at least 3-4 times per day. -Work note given - ONDANSETRON 4 MG DISINTEGRATING TABLET 2. Diarrhea, unspecified type - ICD9: 787.91, ICD10: R19.7 As above -We also did discuss the risks and benefits of antidiarrheal medications. Patient prefers not to take them at this time. Michelle Roberts APRN.CNP documented in this encounter [facility] 12-06-2023 Telephone encounter Note Noted. Ursula Be APRN.CNP [facility] 12-06-2023 Miscellaneous Notes Noted. Ursula Be APRN.CNP Previous message from 11/18 not sent to [place]. Medicaid does not cover any weight loss medication. Patient was notified by phone and through mychart not covered. Ramona Bone MA See pt MC message regarding Wegovy. Have we received word from insurance yet? Please advise. Good Pacheco LPN documented in this encounter [facility] 12-06-2023 Telephone encounter Note Previous message from 11/18 not sent to [place]. Medicaid does not cover any weight loss medication. Patient was notified by phone and through mychart not covered. Ramona Bone MA [facility] 12-06-2023 Telephone encounter Note See pt MC message regarding Wegovy. Have we received word from insurance yet? Please advise. Good Pacheco LPN [facility] 11-22-2023 Note HNO ID: [id number] Author: MANUELA PEARCE APRN.SALVADOR Service: ? Author Type: Sales Agent Business Services Type: Progress Notes Filed: 11/22/2023 11:01 Note Text: Active Directory Engineer offered: Patient declines. Swathi is a 33 year old who presents for an annual gynecologic exam without complaints. Working with primary care for weight loss and weight management. 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 Was in correction for 6 months 10 days after delivery. Menses: cycles every 30 days and 5 days of flow. Contraception: none HPV vaccine: No Last Pap: 06/06/2018 normal HPV: N/A History of abnormal pap: No Last mammogram: never Sexually active: No, declines STD testing Time with current partner: No partners since 2019 Exercise: Active at work. 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 In [facility] program. 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 Hypothyroidism Mood disorder (HCC) bipolar 1 PAST SURGICAL HISTORY Procedure Laterality Date TONSILLECTOMY HX age 18 FAMILY HISTORY Problem Relation Age of Onset Diabetes Father Glaucoma Mother Diabetes Mother Kidney Disease Mother Stroke Mother Thyroid Mother hypo Heart Brother Cancer Maternal Grandmother Alcohol/Drug Paternal Grandmother Heart Paternal Grandfather Alcohol/Drug Paternal Aunt Alcohol/Drug Paternal Uncle Breast Cancer Other 2nd cousins Breast Cancer Other 2nd cousins Cervical Cancer Other 2nd cousins Cervical Cancer Other 2nd cousins Cervical Cancer Other 2nd cousins SOCIAL HISTORY Social History Tobacco Use Smoking status: Former Types: Cigarettes Quit date: 01/28/2022 Years since quittin.8 Smokeless tobacco: Never Tobacco comments: half a pack daily Vaping Use Vaping Use: Never used Substance Use Topics Alcohol use: Yes Comment: rarely Drug use: No REVIEW OF SYSTEMS Abdomen: No abdominal pain, nausea, vomiting, diarrhea, or constipation. No bloating, early satiety, indigestion, or increased flatulence. Bladder: No dysuria, gross hematuria, urinary frequency, urinary urgency, or incontinence. Breast: No breast lumps, nipple d/c, overlying skin changes, redness or skin retraction. Allergies and current medication updated:Yes EXAM: BP 120/72 Ht 5' 6.535 (1.69m) Wt 337 lb (152.9kg) LMP 10/31/2023 BMI 53.52 kg/(m2). GENERAL: pleasant, female in no apparent distress HEENT: Normocephalic, atraumatic, mucus membranes moist, and no lesions NECK: Supple, full range of motion, no adenopathy, and thyroid normal DERMATOLOGY: Normal, without lesions, non-icteric, and non-hirsute BREAST: soft, non-tender, symmetric, no dominant mass, normal nipple-areolar complex, no lymphadenopathy, and no nipple discharge CHEST: Normal inspiratory effort ABDOMEN: soft, non-tender, and no masses PELVIC: external genitalia normal, normal Bartholin's glands, urethra, Orleans's glands, no vulvar lesions, no cervical lesions, good vaginal support, physiologic discharge present, normal appearing perineal body and perianal region BIMANUAL: uterus normal size, shape and consistency, no adnexal masses, and non-tender RECTOVAGINAL: deferred. NEURO: alert and oriented x3,exam grossly non-focal EXTREMITIES: normal ASSESSMENT/PLAN: 1. Encounter for gynecological examination (general) (routine) without abnormal findings - ICD9: V72.31, ICD10: Z01.419 (primary diagnosis) - Completed pelvic and breast exam - Encouraged monthly BSE - Follow up for annual exam in one year. 2. Screening for cervical cancer - ICD9: V76.2, ICD10: Z12.4 - Completed pelvic and breast exam - Encouraged monthly BSE - Follow up for annual exam in one year. - PAP TEST 3. Encounter for screening for human papillomavirus (HPV) - ICD9: V73.81, ICD10: Z11.51 - PAP TEST 4. Class 3 severe obesity without serious comorbidity with body mass index (BMI) of 50.0 to 59.9 in adult, unspecified obesity type (HCC) - ICD9: 278.01, V85.43, ICD10: E66.01, Z68.43 -Weight management/ Primary care -Reviewed exercise and diet modifications. 1) Health maintenance: Pap done with HPV. Mammogram starting age 40. Nutrition, exercise and routine health maintenance exams reviewed. Calcium/Vitamin D supplementation info (more content not included)... [facility] 11-22-2023 History of Presen t illness Narrative Active Directory Engineer offered: Patient declinesAmmon Echevarria is a 33 year old who presents for an annual gynecologic exam without complaints. Working with primary care for weight loss and weight management. 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 Was in correction for 6 months 10 days after delivery. Menses: cycles every 30 days and 5 days of flow. Contraception: none HPV vaccine: No Last Pap: 06/06/2018 normal HPV: N/A History of abnormal pap: No Last mammogram: never Sexually active: No, declines STD testing Time with current partner: No partners since 2019 Exercise: Active at work. 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 In [facility] program. 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 Hypothyroidism Mood disorder (HCC) bipolar 1 PAST SURGICAL HISTORY Procedure Laterality Date TONSILLECTOMY HX age 18 FAMILY HISTORY Problem Relation Age of Onset Diabetes Father Glaucoma Mother Diabetes Mother Kidney Disease Mother Stroke Mother Thyroid Mother hypo Heart Brother Cancer Maternal Grandmother Alcohol/Drug Paternal Grandmother Heart Paternal Grandfather Alcohol/Drug Paternal Aunt Alcohol/Drug Paternal Uncle Breast Cancer Other 2nd cousins Breast Cancer Other 2nd cousins Cervical Cancer Other 2nd cousins Cervical Cancer Other 2nd cousins Cervical Cancer Other 2nd cousins SOCIAL HISTORY Social History Tobacco Use Smoking status: Former Types: Cigarettes Quit date: 01/28/2022 Years since quittin.8 Smokeless tobacco: Never Tobacco comments: half a pack daily Vaping Use Vaping Use: Never used Substance Use Topics Alcohol use: Yes Comment: rarely Drug use: No REVIEW OF SYSTEMS Abdomen: No abdominal pain, nausea, vomiting, diarrhea, or constipation. No bloating, early satiety, indigestion, or increased flatulence. Bladder: No dysuria, gross hematuria, urinary frequency, urinary urgency, or incontinence. Breast: No breast lumps, nipple d/c, overlying skin changes, redness or skin retraction. Allergies and current medication updated:Yes EXAM: BP 120/72 Ht 5' 6.535 (1.69m) Wt 337 lb (152.9kg) LMP 10/31/2023 BMI 53.52 kg/(m^2). GENERAL: pleasant, female in no apparent distress HEENT: Normocephalic, atraumatic, mucus membranes moist, and no lesions NECK: Supple, full range of motion, no adenopathy, and thyroid normal DERMATOLOGY: Normal, without lesions, non-icteric, and non-hirsute BREAST: soft, non-tender, symmetric, no dominant mass, normal nipple-areolar complex, no lymphadenopathy, and no nipple discharge CHEST: Normal inspiratory effort ABDOMEN: soft, non-tender, and no masses PELVIC: external genitalia normal, normal Bartholin's glands, urethra, Orleans's glands, no vulvar lesions, no cervical lesions, good vaginal support, physiologic discharge present, normal appearing perineal body and perianal region BIMANUAL: uterus normal size, shape and consistency, no adnexal masses, and non-tender RECTOVAGINAL: deferred. NEURO: alert and oriented x3,exam grossly non-focal EXTREMITIES: normal ASSESSMENT/PLAN: 1. Encounter for gynecological examination (general) (routine) without abnormal findings - ICD9: V72.31, ICD10: Z01.419 (primary diagnosis) - Completed pelvic and breast exam - Encouraged monthly BSE - Follow up for annual exam in one year. 2. Screening for cervical cancer - ICD9: V76.2, ICD10: Z12.4 - Completed pelvic and breast exam - Encouraged monthly BSE - Follow up for annual exam in one year. - PAP TEST 3. Encounter for screening for human papillomavirus (HPV) - ICD9: V73.81, ICD10: Z11.51 - PAP TEST 4. Class 3 severe obesity without serious comorbidity with body mass index (BMI) of 50.0 to 59.9 in adult, unspecified obesity type (HCC) - ICD9: 278.01, V85.43, ICD10: E66.01, Z68.43 -Weight management/ Primary care -Reviewed exercise and diet modifications. 1) Health maintenance: Pap done with HPV. Mammogram starting age 40. Nutrition, exercise and routine health maintenance exams reviewed. Calcium/Vitamin D supplementation information provided. Lipids/glucose: followed by PCP Vitamin D: followed by PCP 2) Contraception: tubal sterilization. Contraceptive options reviewed and information provided. 3) STD screening: Declined STD check. 4) Follow up one year or sooner as needed Manuela Pearce APRN.CNM documented in this encounter [facility] 11-15-2023 Instructions Ursula Be APRN.CNP - 11/15/2023 10:17 AM EDT Schedule with [facility]. documented in this encounter [facility] 11-15-2023 Note HNO ID: [id number] Author: URSULA BE APRN.CNP Service: ? Author Type: Nurse Practitioner Type: Progress Notes Filed: 11/15/2023 18:49 Note Text: This is a 33 year old female who presents today with: Patient presents with: Discussion: Would like to discuss weight loss medication- wegovy HISTORY OF PRESENT ILLNESS: Swathi Wahl is a 33 year old female. Patient presents with: Discussion: Would like to discuss weight loss medication- wegovy Pt presents today because she would like to discuss staring a medication like wegovy. Refers that she was taken off the vyvanse because of starting another medication for the ADHD. Refers she has been gaining weight, but is less than she was last year. She was previously referred to bariatrics and was pursuing possible surgery. Reports that she was denied d/t previous addiction hx. She has no family hx of thyroid cancer. No hx of pancreatitis. She is aware that medication likely is not going to be covered by insurance. Did discuss referral to [facility] management at [facility]. 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 In [facility] program. 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 lamoTRIgine (LAMICTAL) 25 mg tablet Take 8 tablets by mouth daily at bedtime. naltrexone 50 mg tablet Take 1 tablet by mouth every afternoon. celecoxib (CELEBREX) 200 mg capsule Take 1 capsule by mouth once daily. ciprofloxacin-dexAMETHasone (CIPRODEX) 0.3-0.1 % otic suspension Use 4 Drops in the right ear two times a day. thyroid, pork, (ARMOUR THYROID) 60 mg tablet Take 1 tablet by mouth once daily. thyroid (ARMOUR THYROID) 15 mg tablet Take 1 tablet by mouth once daily. Take with 60 mg dose for total daily dose of [address] (PROTONIX) 40 mg tablet Take 1 tablet by mouth daily before breakfast. Take on empty stomach, 1/2 hr before meal. VYVANSE 30 mg capsule VYVANSE 40 mg capsule gabapentin (NEURONTIN) 300 mg capsule Take 1 capsule by mouth twice daily. Cholecalciferol, Vitamin D3, 50 mcg (2,000 unit) cap Take 1 capsule by mouth once daily. buPROPion XL (WELLBUTRIN XL) 300 mg 24 hr tablet Take 1 tablet by mouth once daily. propranolol (INDERAL) 20 mg tablet Take 1 tablet by mouth twice daily. busPIRone (BUSPAR) 15 mg tablet Take 1 tablet by mouth three times daily. No current facility-administered medications for this visit. FAMILY HISTORY Problem Relation Age of Onset Diabetes Father Glaucoma Mother Diabetes Mother Kidney Disease Mother Stroke Mother Thyroid Mother hypo Heart Brother Cancer Maternal Grandmother Alcohol/Drug Paternal Grandmother Heart Paternal Grandfather Alcohol/Drug Paternal Aunt Alcohol/Drug Paternal Uncle Breast Cancer Other 2nd cousins Breast Cancer Other 2nd cousins Cervical Cancer Other 2nd cousins Cervical Cancer Other 2nd cousins Cervical Cancer Other 2nd cousins Social History Tobacco Use Smoking status: Former Types: Cigarettes Quit date: 01/28/2022 Years since quittin.7 Smokeless tobacco: Never Tobacco comments: half a pack daily Substance Use Topics Alcohol use: Yes Comment: rarely Drug use: No EXAM: BP 124/92 Pulse 88 Resp 16 Wt (!) 153.3 kg (338 lb) LMP 04/14/2023 (Approximate) SpO2 95% BMI 54.55 kg/m? PHYSICAL EXAM: General Appearance: Well appearing, alert, in no acute distress, well-hydrated, well nourished.. Skin: Skin color, texture, turgor normal, no suspicious rashes or lesions. Head: Normocephalic, no masses, lesions, tenderness or abnormalities. Eyes: Anicteric sclera. Pupils are equally round and reactive to light. Extraocular movements are intact. . Neurologic: Gait normal. ASSESSMENT/PLAN: 1. Morbid obesity with BMI of 50.0-59.9, adult (HCC) - ICD9: 278.01, V85.43, ICD10: E66.01, Z68.43 Stable - Pharmacological intervention No contraindications to wegovy. She is aware that this likely will not be covered by insurance. - SEMAGLUTIDE (WEIGHT LOSS) 0.25 MG/0.5 ML SUBCUTANEOUS PEN INJECTOR - CONSULT TO [facility] Discussed treatment plan and patient voices understanding. Patient's questions answered appropriately. Medications and potential side effects were discussed and patient voices understanding. Return to the office as scheduled or as needed f (more content not included)... [facility] 11-15-2023 History of Presen t illness Narrative This is a 33 year old female who presents today with: Patient presents with: Discussion: Would like to discuss weight loss medication- wegovy HISTORY OF PRESENT ILLNESS: Swathi Wahl is a 33 year old female. Patient presents with: Discussion: Would like to discuss weight loss medication- wegovy Pt presents today because she would like to discuss staring a medication like wegovy. Refers that she was taken off the vyvanse because of starting another medication for the ADHD. Refers she has been gaining weight, but is less than she was last year. She was previously referred to bariatrics and was pursuing possible surgery. Reports that she was denied d/t previous addiction hx. She has no family hx of thyroid cancer. No hx of pancreatitis. She is aware that medication likely is not going to be covered by insurance. [facility]. 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 In [facility] program. 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 lamoTRIgine (LAMICTAL) 25 mg tablet Take 8 tablets by mouth daily at bedtime. naltrexone 50 mg tablet Take 1 tablet by mouth every afternoon. celecoxib (CELEBREX) 200 mg capsule Take 1 capsule by mouth once daily. ciprofloxacin-dexAMETHasone (CIPRODEX) 0.3-0.1 % otic suspension Use 4 Drops in the right ear two times a day. thyroid, pork, (ARMOUR THYROID) 60 mg tablet Take 1 tablet by mouth once daily. thyroid (ARMOUR THYROID) 15 mg tablet Take 1 tablet by mouth once daily. Take with 60 mg dose for total daily dose of [address] (PROTONIX) 40 mg tablet Take 1 tablet by mouth daily before breakfast. Take on empty stomach, 1/2 hr before meal. VYVANSE 30 mg capsule VYVANSE 40 mg capsule gabapentin (NEURONTIN) 300 mg capsule Take 1 capsule by mouth twice daily. Cholecalciferol, Vitamin D3, 50 mcg (2,000 unit) cap Take 1 capsule by mouth once daily. buPROPion XL (WELLBUTRIN XL) 300 mg 24 hr tablet Take 1 tablet by mouth once daily. propranolol (INDERAL) 20 mg tablet Take 1 tablet by mouth twice daily. busPIRone (BUSPAR) 15 mg tablet Take 1 tablet by mouth three times daily. No current facility-administered medications for this visit. FAMILY HISTORY Problem Relation Age of Onset Diabetes Father Glaucoma Mother Diabetes Mother Kidney Disease Mother Stroke Mother Thyroid Mother hypo Heart Brother Cancer Maternal Grandmother Alcohol/Drug Paternal Grandmother Heart Paternal Grandfather Alcohol/Drug Paternal Aunt Alcohol/Drug Paternal Uncle Breast Cancer Other 2nd cousins Breast Cancer Other 2nd cousins Cervical Cancer Other 2nd cousins Cervical Cancer Other 2nd cousins Cervical Cancer Other 2nd cousins Social History Tobacco Use Smoking status: Former Types: Cigarettes Quit date: 01/28/2022 Years since quittin.7 Smokeless tobacco: Never Tobacco comments: half a pack daily Substance Use Topics Alcohol use: Yes Comment: rarely Drug use: No EXAM: BP 124/92 Pulse 88 Resp 16 Wt (!) 153.3 kg (338 lb) LMP 04/14/2023 (Approximate) SpO2 95% BMI 54.55 kg/m PHYSICAL EXAM: General Appearance: Well appearing, alert, in no acute distress, well-hydrated, well nourished.. Skin: Skin color, texture, turgor normal, no suspicious rashes or lesions. Head: Normocephalic, no masses, lesions, tenderness or abnormalities. Eyes: Anicteric sclera. Pupils are equally round and reactive to light. Extraocular movements are intact. . Neurologic: Gait normal. ASSESSMENT/PLAN: 1. Morbid obesity with BMI of 50.0-59.9, adult (HCC) - ICD9: 278.01, V85.43, ICD10: E66.01, Z68.43 Stable - Pharmacological intervention No contraindications to wegovy. She is aware that this likely will not be covered by insurance. - SEMAGLUTIDE (WEIGHT LOSS) 0.25 MG/0.5 ML SUBCUTANEOUS PEN INJECTOR - CONSULT TO [facility] Discussed treatment plan and patient voices understanding. Patient's questions answered appropriately. Medications and potential side effects were discussed and patient voices understanding. Return to the office as scheduled or as needed for worsening/no improvement. Ursula Be APRN.MICHELLE documented in this encounter [facility] 09-27-2023 Telephone encounter Note The following approved medication requests have been transmitted electronically. Requested Prescriptions Signed Prescriptions Disp Refills metFORMIN (GLUCOPHAGE) 500 mg tablet 30 tablet 5 Sig: Take 1 tablet by mouth daily with breakfast. Authorizing Provider: JONY MARTELL MA [facility] 09-27-2023 Miscellaneous Notes The following approved medication requests have been transmitted electronically. Requested Prescriptions Signed Prescriptions Disp Refills metFORMIN (GLUCOPHAGE) 500 mg tablet 30 tablet 5 Sig: Take 1 tablet by mouth daily with breakfast. Authorizing Provider: JONY MARTELL MA Insurance will not pay for metformin ER till trail/failure of metformin. Please send Cancelled out metformin ER. Ramona Bone MA documented in this encounter [facility] 09-26-2023 Telephone encounter Note Insurance will not pay for metformin ER till trail/failure of metformin. Please send Cancelled out metformin ER. Ramona Bone MA [facility] 09-23-2023 Telephone encounter Note See pt message. Good Pacheco LPN [facility] 09-23-2023 Miscellaneous Notes See pt message. Good Pacheco LPN documented in this encounter [facility] 09-06-2023 Instructions Ursula Be APRN.INSURANCE AGENCY MANAGER - 09/06/2023 9:19 AM EDT Stop the naproxen. Start the celebrex. Start the ear drops (let me know if not covered by insurance). Get the fasting labwork. Health Promotion: - Eat healthy -- go to [employer] to get started - Have a yearly physical - Mammogram yearly after age 40 - Get at least 30 minutes of physical activity daily - Get at least 7 to 8 hours of sleep each night - Reach and maintain a healthy weight - Get help to quit or don't start smoking - Limit alcohol use to one drink or less - Do not use illegal drugs or misuse prescription drugs - Wear a helmet when riding a bike and wear protective gear for sports - Wear a seatbelt in cars and not text and drive - Wear sunscreen documented in this encounter [facility] 09-06-2023 Note HNO ID: [id number] Author: URSULA BE APRN.INSURANCE AGENCY MANAGER Service: ? Author Type: Nurse Practitioner Type: Progress Notes Filed: 09/06/2023 10:32 Note Text: This is a 32 year old female who presents today with: Patient presents with: Yearly Exam Ear Pain: R ear with clear drainage x5 days; no fever/sore throat; HISTORY OF PRESENT ILLNESS: Swathi Rivers Workman is a 32 year old female. Patient presents with: Yearly Exam Ear Pain: R ear with clear drainage x5 days; no fever/sore throat; Pt presents today with complaint of possible ear infection. Started about 5 days ago. More swollen in the mornings. Right ear -- sleeps on that side. + painful. Hearing is muffled. No recent sickness. She hasn't had labs in awhile. Hx of anemia. HYPOTHYROID: Patient is compliant with medications: Yes Patient has changes in energy: always fatigued. Patient has changes in hair or skin: No Patient has temperature intolerance: No Patient has weight changes: No Pain Has been taking naproxen and ibuprofen, which hasn't been helping. Wrists and back. 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 Inflammatory markers were elevated on last check, but did not recheck. 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 In [facility]. 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 thyroid, pork, (ARMOUR THYROID) 60 mg tablet Take 1 tablet by mouth once daily. thyroid (ARMOUR THYROID) 15 mg tablet Take 1 tablet by mouth once daily. Take with 60 mg dose for total daily dose of [address] (PROTONIX) 40 mg tablet Take 1 tablet by mouth daily before breakfast. Take on empty stomach, 1/2 hr before meal. VYVANSE 30 mg capsule VYVANSE 40 mg capsule gabapentin (NEURONTIN) 300 mg capsule Take 1 capsule by mouth twice daily. Cholecalciferol, Vitamin D3, 50 mcg (2,000 unit) cap Take 1 capsule by mouth once daily. naproxen (NAPROSYN) 500 mg tablet Take 1 tablet by mouth twice daily. Take with food. buPROPion XL (WELLBUTRIN XL) 300 mg 24 hr tablet Take 1 tablet by mouth once daily. busPIRone (BUSPAR) 15 mg tablet Take 1 tablet by mouth three times daily. atomoxetine (STRATTERA) 25 mg capsule Take 1 capsule by mouth once daily. VIVITROL 380 mg injection 380 mg once every month. propranolol (INDERAL) 20 mg tablet Take 1 tablet by mouth twice daily. No current facility-administered medications for this visit. FAMILY HISTORY Problem Relation Age of Onset Diabetes Father Glaucoma Mother Diabetes Mother Kidney Disease Mother Stroke Mother Thyroid Mother hypo Heart Brother Cancer Maternal Grandmother Alcohol/Drug Paternal Grandmother Heart Paternal Grandfather Alcohol/Drug Paternal Aunt Alcohol/Drug Paternal Uncle Breast Cancer Other 2nd cousins Breast Cancer Other 2nd cousins Cervical Cancer Other 2nd cousins Cervical Cancer Other 2nd cousins Cervical Cancer Other 2nd cousins Social History Tobacco Use Smoking status: Former Types: Cigarettes Quit date: 01/28/2022 Years since quittin.6 Smokeless tobacco: Never Tobacco comments: half a pack daily Substance Use Topics Alcohol use: Yes Comment: rarely Drug use: No EXAM: BP 104/80 Pulse 87 Resp 16 Wt (!) 152.4 kg (336 lb) LMP 04/14/2023 (Approximate) SpO2 96% BMI 54.23 kg/m? PHYSICAL EXAM: General Appearance: Well appearing, alert, in no acute distress, well-hydrated, well nourished.. Skin: Skin color, texture, turgor normal, no suspicious rashes or lesions. Head: Normocephalic, no masses, lesions, tenderness or abnormalities. Eyes: Anicteric sclera. Pupils are equally round and reactive to light. Extraocular movements are intact. . Ears: External ears normal, canals clear, Positive findings: erythema and edema of ear canal: on right. Oropharynx: Lips, mucosa, and tongue normal, teeth and gums normal, oropharynx normal. Neck: Supple, no adenopathy; thyroid symmetric, normal size. Lungs: Lungs clear to auscultation. No wheezing, rhonchi, rales.. Heart: RRR without murmur, gallop, or rubs. No ectopy. Abdomen: Abdomen soft, non-tender. Bowel sounds normal. No masses, organomegaly. Extremities: No deformities, edema, skin discoloration, clubbing or cyanosis. Good capillary refill. . Neurologic: Gait normal. ASSESSMENT/PLAN: 1. Wellness examination - ICD9: V70.0, ICD10: (more content not included)... [facility] 09-06-2023 History of Presen t illness Narrative This is a 32 year old female who presents today with: Patient presents with: Yearly Exam Ear Pain: R ear with clear drainage x5 days; no fever/sore throat; HISTORY OF PRESENT ILLNESS: Swathi Rivers Workman is a 32 year old female. Patient presents with: Yearly Exam Ear Pain: R ear with clear drainage x5 days; no fever/sore throat; Pt presents today with complaint of possible ear infection. Started about 5 days ago. More swollen in the mornings. Right ear -- sleeps on that side. + painful. Hearing is muffled. No recent sickness. She hasn't had labs in awhile. Hx of anemia. HYPOTHYROID: Patient is compliant with medications: Yes Patient has changes in energy: always fatigued. Patient has changes in hair or skin: No Patient has temperature intolerance: No Patient has weight changes: No Pain Has been taking naproxen and ibuprofen, which hasn't been helping. Wrists and back. 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 Inflammatory markers were elevated on last check, but did not recheck. 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 In [facility]. 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 thyroid, pork, (ARMOUR THYROID) 60 mg tablet Take 1 tablet by mouth once daily. thyroid (ARMOUR THYROID) 15 mg tablet Take 1 tablet by mouth once daily. Take with 60 mg dose for total daily dose of [address] (PROTONIX) 40 mg tablet Take 1 tablet by mouth daily before breakfast. Take on empty stomach, 1/2 hr before meal. VYVANSE 30 mg capsule VYVANSE 40 mg capsule gabapentin (NEURONTIN) 300 mg capsule Take 1 capsule by mouth twice daily. Cholecalciferol, Vitamin D3, 50 mcg (2,000 unit) cap Take 1 capsule by mouth once daily. naproxen (NAPROSYN) 500 mg tablet Take 1 tablet by mouth twice daily. Take with food. buPROPion XL (WELLBUTRIN XL) 300 mg 24 hr tablet Take 1 tablet by mouth once daily. busPIRone (BUSPAR) 15 mg tablet Take 1 tablet by mouth three times daily. atomoxetine (STRATTERA) 25 mg capsule Take 1 capsule by mouth once daily. VIVITROL 380 mg injection 380 mg once every month. propranolol (INDERAL) 20 mg tablet Take 1 tablet by mouth twice daily. No current facility-administered medications for this visit. FAMILY HISTORY Problem Relation Age of Onset Diabetes Father Glaucoma Mother Diabetes Mother Kidney Disease Mother Stroke Mother Thyroid Mother hypo Heart Brother Cancer Maternal Grandmother Alcohol/Drug Paternal Grandmother Heart Paternal Grandfather Alcohol/Drug Paternal Aunt Alcohol/Drug Paternal Uncle Breast Cancer Other 2nd cousins Breast Cancer Other 2nd cousins Cervical Cancer Other 2nd cousins Cervical Cancer Other 2nd cousins Cervical Cancer Other 2nd cousins Social History Tobacco Use Smoking status: Former Types: Cigarettes Quit date: 01/28/2022 Years since quittin.6 Smokeless tobacco: Never Tobacco comments: half a pack daily Substance Use Topics Alcohol use: Yes Comment: rarely Drug use: No EXAM: BP 104/80 Pulse 87 Resp 16 Wt (!) 152.4 kg (336 lb) LMP 04/14/2023 (Approximate) SpO2 96% BMI 54.23 kg/m PHYSICAL EXAM: General Appearance: Well appearing, alert, in no acute distress, well-hydrated, well nourished.. Skin: Skin color, texture, turgor normal, no suspicious rashes or lesions. Head: Normocephalic, no masses, lesions, tenderness or abnormalities. Eyes: Anicteric sclera. Pupils are equally round and reactive to light. Extraocular movements are intact. . Ears: External ears normal, canals clear, Positive findings: erythema and edema of ear canal: on right. Oropharynx: Lips, mucosa, and tongue normal, teeth and gums normal, oropharynx normal. Neck: Supple, no adenopathy; thyroid symmetric, normal size. Lungs: Lungs clear to auscultation. No wheezing, rhonchi, rales.. Heart: RRR without murmur, gallop, or rubs. No ectopy. Abdomen: Abdomen soft, non-tender. Bowel sounds normal. No masses, organomegaly. Extremities: No deformities, edema, skin discoloration, clubbing or cyanosis. Good capillary refill. . Neurologic: Gait normal. ASSESSMENT/PLAN: 1. Wellness examination - ICD9: V70.0, ICD10: Z00.00 (primary diagnosis) - Counseled on healthy diet and regular exercise Aware due for pap. Health Promotion: - Eat healthy -- go to [employer]gov to get started - Have a yearly physical - Mammogram yearly after age 40 - Get at least 30 minutes of physical activity daily - Get at least 7 to 8 hours of sleep each night - Reach and maintain a healthy weight - Get help to quit or don't start smoking - Limit alcohol use to one drink or less - Do not use illegal drugs or misuse prescription drugs - Wear a helmet when riding a bike and wear protective gear for sports - Wear a seatbelt in cars and not text and drive - Wear sunscreen 2. Acquired hypothyroidism - ICD9: 244.9, ICD10: E03.9 Due for labs. - TSH BLD - T4 FREE/FREE THYROX - T3 BLD 3. Prediabetes - ICD9: 790.29, ICD10: R73.03 - HGB A1C - LIPID PANEL BASIC 4. Polyarthralgia - ICD9: 719.49, ICD10: M25.50 Recheck inflammatory markers. Stop naproxen. Start celebrex. - C-REACTIVE PROTEIN (CRP) - SED RATE WESTERGREN - CELECOXIB 200 MG CAPSULE 5. Elevated sed rate - ICD9: 790.1, ICD10: R70.0 - C-REACTIVE PROTEIN (CRP) - SED RATE WESTERGREN 6. Vitamin D deficiency - ICD9: 268.9, ICD10: E55.9 - VITAMIN D 25 HYDROXY 7. Anemia, unspecified type - ICD9: 285.9, ICD10: D64.9 - CBC + DIFF - IRON + TIBC - FERRITIN BLD 8. Gastroesophageal reflux disease, unspecified whether esophagitis present - ICD9: 530.81, ICD10: K21.9 Stable on PPI. - MAGNESIUM BLD 9. Encounter for immunization - ICD9: V03.89, ICD10: Z23 - [employer] COVID-19 VACCINE (2022- SEASON) AGE 12+ YR Discussed treatment plan and patient voices understanding. Patient's questions answered appropriately. Medications and potential side effects were discussed and patient voices understanding. Return to the office as scheduled or as needed for worsening/no improvement. Ursula Be APRN.INSURANCE AGENCY MANAGER documented in this encounter [facility] 04-15-2023 Note HNO ID: [id number] Author: Paolo Magaña APRN.MICHELLE Service: ? Author Type: Nurse Practitioner Type: Progress Notes Filed: 04/15/2023 10:34 AM Note Text: Subjective HPI Nontoxic-appearing female presents urgent care chief plaint possible conjunctivitis. Duration of symptom 1 day. Associated symptoms eye redness and drainage. Patient states eye was matted shut upon arising this morning. History of pinkeye this feels similar. Sick contacts similar signs symptoms. Did use Polytrim this morning that was leftover. No other OTC medication use. No eye trauma flashes light floaters visual changes pain with EOMs contact lens use. Denies any fever body aches chills productive cough chest pain shortness of breath pleuritic pain hemoptysis nausea vomiting abdominal pain change in bowel or bladder habits. Past medical history prescription medication use and allergies reviewed. .Patient presents with: Conjunctivitis: Possibly pink x1day. 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 In [facility] program. 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 thyroid (ARMOUR THYROID) 15 mg tablet Take 1 tablet by mouth once daily. Take with 60 mg dose for total daily dose of [address] (PROTONIX) 40 mg tablet Take 1 tablet by mouth daily before breakfast. Take on empty stomach, 1/2 hr before meal. VYVANSE 30 mg capsule VYVANSE 40 mg capsule gabapentin (NEURONTIN) 300 mg capsule Take 1 capsule by mouth twice daily. atomoxetine (STRATTERA) 25 mg capsule Take 1 capsule by mouth once daily. Cholecalciferol, Vitamin D3, 50 mcg (2,000 unit) cap Take 1 capsule by mouth once daily. lamoTRIgine (LAMICTAL) 25 mg tablet Take 3 tablets by mouth daily at bedtime. (Patient taking differently: Take 25 mg by mouth two times a day.) naproxen (NAPROSYN) 500 mg tablet Take 1 tablet by mouth twice daily. Take with food. VIVITROL 380 mg injection 380 mg once every month. buPROPion XL (WELLBUTRIN XL) 300 mg 24 hr tablet Take 1 tablet by mouth once daily. propranolol (INDERAL) 20 mg tablet Take 1 tablet by mouth twice daily. busPIRone (BUSPAR) 15 mg tablet Take 1 tablet by mouth three times daily. FAMILY HISTORY Problem Relation Age of Onset Diabetes Father Glaucoma Mother Diabetes Mother Kidney Disease Mother Stroke Mother Thyroid Mother hypo Heart Brother Cancer Maternal Grandmother Alcohol/Drug Paternal Grandmother Heart Paternal Grandfather Alcohol/Drug Paternal Aunt Alcohol/Drug Paternal Uncle Breast Cancer Other 2nd cousins Breast Cancer Other 2nd cousins Cervical Cancer Other 2nd cousins Cervical Cancer Other 2nd cousins Cervical Cancer Other 2nd cousins Social History Tobacco Use Smoking status: Former Types: Cigarettes Quit date: 01/28/2022 Years since quittin.2 Smokeless tobacco: Never Tobacco comments: half a pack daily Substance Use Topics Alcohol use: Yes Comment: rarely Drug use: No BP 118/64 Pulse 84 Temp 36.7 ?C (98.1 ?F) Resp 16 Wt (!) 154 kg (339 lb 6.4 oz) LMP 04/14/2023 (Approximate) SpO2 96% BMI 54.78 kg/m? Review of Systems Constitutional: Negative for chills, fever and malaise/fatigue. HENT: Negative for congestion, ear discharge, ear pain, sinus pain and sore throat. Eyes: Positive for discharge and redness. Negative for blurred vision, double vision, photophobia and pain. Respiratory: Negative for cough, hemoptysis, sputum production, shortness of breath, wheezing and stridor. Cardiovascular: Negative for chest pain. Gastrointestinal: Negative for abdominal pain, diarrhea, nausea and vomiting. Musculoskeletal: Negative for myalgias. Skin: Negative for itching and rash. Neurological: Negative for dizziness and headaches. Objective Physical Exam Constitutional: General: She is not in acute distress. Appearance: She is not toxic-appearing. HENT: Head: Normocephalic. Nose: Nose normal. Mouth/Throat: Mouth: Mucous membranes are moist. Pharynx: Oropharynx is clear. No oropharyngeal exudate or posterior oropharyngeal erythema. Eyes: General: Lids are normal. Lids are everted, no foreign bodies appreciated. Vision grossly intact. Right eye: Discharge present. No foreign body or hordeolum. Left eye: No foreign body, discharge or hordeolum. Conjunctiva/sclera: Right eye: Right conjunctiva is injected. No chemosis, exud (more content not included)... [facility] 04-15-2023 History of Presen t illness Narrative Subjective HPI Nontoxic-appearing female presents urgent care chief plaint possible conjunctivitis. Duration of symptom 1 day. Associated symptoms eye redness and drainage. Patient states eye was matted shut upon arising this morning. History of pinkeye this feels similar. Sick contacts similar signs symptoms. Did use Polytrim this morning that was leftover. No other OTC medication use. No eye trauma flashes light floaters visual changes pain with EOMs contact lens use. Denies any fever body aches chills productive cough chest pain shortness of breath pleuritic pain hemoptysis nausea vomiting abdominal pain change in bowel or bladder habits. Past medical history prescription medication use and allergies reviewed. .Patient presents with: Conjunctivitis: Possibly pink x1day. 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 In [facility] program. 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 thyroid (ARMOUR THYROID) 15 mg tablet Take 1 tablet by mouth once daily. Take with 60 mg dose for total daily dose of [address] (PROTONIX) 40 mg tablet Take 1 tablet by mouth daily before breakfast. Take on empty stomach, 1/2 hr before meal. VYVANSE 30 mg capsule VYVANSE 40 mg capsule gabapentin (NEURONTIN) 300 mg capsule Take 1 capsule by mouth twice daily. atomoxetine (STRATTERA) 25 mg capsule Take 1 capsule by mouth once daily. Cholecalciferol, Vitamin D3, 50 mcg (2,000 unit) cap Take 1 capsule by mouth once daily. lamoTRIgine (LAMICTAL) 25 mg tablet Take 3 tablets by mouth daily at bedtime. (Patient taking differently: Take 25 mg by mouth two times a day.) naproxen (NAPROSYN) 500 mg tablet Take 1 tablet by mouth twice daily. Take with food. VIVITROL 380 mg injection 380 mg once every month. buPROPion XL (WELLBUTRIN XL) 300 mg 24 hr tablet Take 1 tablet by mouth once daily. propranolol (INDERAL) 20 mg tablet Take 1 tablet by mouth twice daily. busPIRone (BUSPAR) 15 mg tablet Take 1 tablet by mouth three times daily. FAMILY HISTORY Problem Relation Age of Onset Diabetes Father Glaucoma Mother Diabetes Mother Kidney Disease Mother Stroke Mother Thyroid Mother hypo Heart Brother Cancer Maternal Grandmother Alcohol/Drug Paternal Grandmother Heart Paternal Grandfather Alcohol/Drug Paternal Aunt Alcohol/Drug Paternal Uncle Breast Cancer Other 2nd cousins Breast Cancer Other 2nd cousins Cervical Cancer Other 2nd cousins Cervical Cancer Other 2nd cousins Cervical Cancer Other 2nd cousins Social History Tobacco Use Smoking status: Former Types: Cigarettes Quit date: 01/28/2022 Years since quittin.2 Smokeless tobacco: Never Tobacco comments: half a pack daily Substance Use Topics Alcohol use: Yes Comment: rarely Drug use: No BP 118/64 Pulse 84 Temp 36.7 C (98.1 F) Resp 16 Wt (!) 154 kg (339 lb 6.4 oz) LMP 04/14/2023 (Approximate) SpO2 96% BMI 54.78 kg/m Review of Systems Constitutional: Negative for chills, fever and malaise/fatigue. HENT: Negative for congestion, ear discharge, ear pain, sinus pain and sore throat. Eyes: Positive for discharge and redness. Negative for blurred vision, double vision, photophobia and pain. Respiratory: Negative for cough, hemoptysis, sputum production, shortness of breath, wheezing and stridor. Cardiovascular: Negative for chest pain. Gastrointestinal: Negative for abdominal pain, diarrhea, nausea and vomiting. Musculoskeletal: Negative for myalgias. Skin: Negative for itching and rash. Neurological: Negative for dizziness and headaches. Objective Physical Exam Constitutional: General: She is not in acute distress. Appearance: She is not toxic-appearing. HENT: Head: Normocephalic. Nose: Nose normal. Mouth/Throat: Mouth: Mucous membranes are moist. Pharynx: Oropharynx is clear. No oropharyngeal exudate or posterior oropharyngeal erythema. Eyes: General: Lids are normal. Lids are everted, no foreign bodies appreciated. Vision grossly intact. Right eye: Discharge present. No foreign body or hordeolum. Left eye: No foreign body, discharge or hordeolum. Conjunctiva/sclera: Right eye: Right conjunctiva is injected. No chemosis, exudate or hemorrhage. Left eye: Left conjunctiva is not injected. No chemosis, exudate or hemorrhage. Pupils: Pupils are equal, round, and reactive to light. Comments: No evidence of orbital periorbital cellulitis. Visual acuity unchanged. Limbus clear. Cardiovascular: Rate and Rhythm: Normal rate. Pulmonary: Effort: Pulmonary effort is normal. No respiratory distress. Musculoskeletal: Cervical back: Normal range of motion. Skin: General: Skin is warm and dry. Neurological: General: No focal deficit present. Mental Status: She is alert. ASSESSMENT/PLAN: 1. Acute conjunctivitis of right eye, unspecified acute conjunctivitis type - ICD9: 372.00, ICD10: H10.31 Diagnosed with conjunctivitis. Viral versus bacterial conjunctivitis discussed. Placed on Polytrim. Patient was educated on supportive therapies. Patient will follow up with primary care provider as needed. Patient was instructed to immediately proceed to emergency room for any new, worsening, or symptoms lasting longer than anticipated. The patient's clinical presentation is otherwise unremarkable at this time. Based on exam and clinical finding, the patient is stable for discharge. Plan of care was discussed with patient. Patient verbalizes understanding and agrees to plan of care. This note was generated using [employer] software. It may contain errors in wording, punctuation, or spelling. Paolo Magaña APRN.MICHELLE documented in this encounter [facility] 03-14-2023 Miscellaneous Notes Patient has been identified by name and date of : Yes Patient phones for refill(s): Requested Prescriptions Pending Prescriptions Disp Refills pantoprazole DR (PROTONIX) 40 mg tablet 30 tablet 5 Sig: Take 1 tablet by mouth daily before breakfast. Take on empty stomach, 1/2 hr before meal. Date of last office visit in primary care: 07/26/2022 Date of next office visit in primary care: Visit date not found Last 2 Encounter Wt Readings: Date: Wt: 07/01/2022 166.9 kg (368 lb) 05/03/2022 159.2 kg (351 lb) Please advise. Thank you. MARTITA Neely. documented in this encounter [facility] 01-20-2023 History of Presen t illness Narrative 1. Marginal corneal ulcer of right eye 2. Meibomian gland dysfunction (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 Suspect staph hypersensitivity Educated patient on condition Medications to Start Taking trimethoprim-polymyxin (POLYTRIM) 10,000 unit- 1 mg/mL ophthalmic solution Use 1 Drop in the right eye four times daily for 10 days. Loteprednol Etabonate (ALREX) 0.2 % drps Use 1 Drop in the right eye four times daily for 10 days. Educated pt on lid scrubs and warm compresses daily Follow-up in 5-7 days for corneal check- may consider taper if improved Paz Hoskins, HAYDE January 20, 2023 10:37 AM documented in this encounter [facility] 08-18-2022 Miscellaneous Notes Appt scheduled 09/09. Referral placed. Please help schedule. Ursula Be APRN.CNP Pt notified of results/provider response. Pt agreeable to Ortho referral. Please place consult. Pt aware scheduling will be in contact with her to schedule appt. Good Pacheco LPN Can please let patient know that I received her EMG results. It is consistent with carpal tunnel syndrome. If she interested in seeing Ortho for further evaluation and treatment of this? documented in this encounter [facility] 08-16-2022 Miscellaneous Notes Component Latest Ref Rng & Units 05/05/2022 TSH 0.270 - 4.200 mIU/L 4.350 (H) Free T4 0.9 - 1.7 ng/dL 1.0 T3 79 - 165 ng/dL 140 LOV07/26/22 documented in this encounter [facility] 07-01-2022 Instructions Silvestre Arriaga PA-C - 07/01/2022 4:56 PM EST Myofascial release as sown. See sheet on carpal tunnel and hip exercises. documented in this encounter [facility] 07-01-2022 History of Presen t illness Narrative 31 year old female with c/o Right wrist and arm pain over a couple of weeks, gradually getting worse. About 2 months ago had similar pain sa Ursula Be CNP who started gabapentin which helped. [facility] at [facility] ETOH was drinking a gallon of vodka a day at peak. Quit s In past addicted to meth but hasn't since 2018. moking. Writes but not excessively. RFA feels tight. A few minutes into writing fingers go numb, fingers 2-3-4. No neck or shoulder pain. Lays on side and wakes with numb, better if moves. Using OTC naproxen for discomfort. Intermittent, lasts for minutes and then abates. Has weakness all over. A lot of effort to move. Thyroid med upped in April, feels like having same sx. Muscle weakness, joint pain, overly tired, weight gain. Left hip pain: pulled slipping on a blanket on carpet, did the splits December. Went to ER, no xrays completed. Thought it was a pulled muscle. Hurts if sits for very long. HISTORIES FAMILY HISTORY Problem Relation Age of Onset Diabetes Mother Kidney Disease Mother Stroke Mother Thyroid Mother hypo Diabetes Father Cancer Maternal Grandmother Breast Cancer Other 2nd cousins Breast Cancer Other 2nd cousins Cervical Cancer Other 2nd cousins Cervical Cancer Other 2nd cousins Cervical Cancer Other 2nd cousins Heart Brother Heart Paternal Grandfather Alcohol/Drug Paternal Grandmother Alcohol/Drug Paternal Aunt Alcohol/Drug Paternal Uncle PAST MEDICAL HISTORY Diagnosis Date Anemia has been on iron in past couple years Anxiety Back pain Depression Drug use affecting in first trimester 06/01/2018 06/01/18: METH and Heroin use - last use 3 months ago. Struggled with addiction since age 16. In [facility] program. 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 Hypothyroidism Mood disorder (HCC) bipolar 1 PAST SURGICAL HISTORY Procedure Laterality Date TONSILLECTOMY HX age 18 Social History Tobacco Use Smoking status: Former Types: Cigarettes Quit date: 01/28/2022 Years since quittin.4 Smokeless tobacco: Never Tobacco comments: half a pack daily Substance Use Topics Alcohol use: Yes Comment: rarely Drug use: No ACTIVE PROBLEM LIST Anxiety Mood Disorder (Hcc) Back Ache Depression Bipolar I Disorder, Most Recent Episode (Or Current) Depressed, Severe, Specified As With Psychotic Behavior (Hcc) Obese Panic Disorder Without Agoraphobia Obstructive Sleep Apnea Acquired Hypothyroidism Drug Use Affecting in First Trimester History of Recurrent Miscarriages Maternal Tobacco Use in First Trimester Substance Abuse (Hcc) Request for Sterilization Anemia During in Third Trimester Abnormal Glucose Complicating Polyhydramnios in Third Trimester Obesity, Class III, BMI >= 40 Current Outpatient Medications Medication Sig Dispense Refill gabapentin (NEURONTIN) 300 mg capsule Take 1 capsule by mouth twice daily. atomoxetine (STRATTERA) 25 mg capsule Take 1 capsule by mouth once daily. thyroid (ARMOUR THYROID) 15 mg tablet Take 1 tablet by mouth once daily. Take with 60 mg dose for total daily dose of 75 mg. 30 tablet 5 Cholecalciferol, Vitamin D3, 50 mcg (2,000 unit) cap Take 1 capsule by mouth once daily. 30 capsule 5 lamoTRIgine (LAMICTAL) 25 mg tablet Take 3 tablets by mouth daily at bedtime. (Patient taking differently: Take 25 mg by mouth twice daily.) naproxen (NAPROSYN) 500 mg tablet Take 1 tablet by mouth twice daily. Take with food. 60 tablet 1 VIVITROL 380 mg injection 380 mg once every month. buPROPion XL (WELLBUTRIN XL) 300 mg 24 hr tablet Take 1 tablet by mouth once daily. pantoprazole DR (PROTONIX) 40 mg tablet Take 1 tablet by mouth daily before breakfast. Take on empty stomach, 1/2 hr before meal. propranolol (INDERAL) 20 mg tablet Take 1 tablet by mouth twice daily. 60 tablet 1 busPIRone (BUSPAR) 15 mg tablet Take 1 tablet by mouth three times daily. 90 tablet 5 thyroid, pork, (ARMOUR THYROID) 60 mg Take 1 tablet by mouth once daily. 30 tablet 5 No current facility-administered medications for this visit. HEPATITIS B(1 of 3 - 3-dose series) Never done BP CONTROLLED (<130/80) Never done HPV TESTING Never done EXAM: BP 120/78 Pulse 91 Resp 16 Wt (!) 166.9 kg (368 lb) LMP 06/24/2021 SpO2 96% BMI 59.40 kg/m Pleasant morbidly obese adult woman in no acute distress. Alert and oriented all spheres. Normal affect and cognition. Speech normal. No deficits to learning or comprehension. Skin warm, dry, pink to lips and nailbeds. Normal turgor. Respirations regular and unlabored. HEENT: NCAT. No scleral icterus or conjunctival injection. TM's clear. Nose and oropharynx free from injection or lesion. Oral membranes moist and pink. No cervical lymph nodes. Thyroid non-tender, no masses, or enlargement. Carotids pulses 2+/4+ without bruits. No JVD with HOB at 30 degrees. Chest is normal shape. Lungs are clear to all ny with good air exchange through out. HRRR without murmur or gallop. No lifts, heaves, or rubs. Extrem: no clubbing or cyanosis. Edema: none. Extremities are warm and pink with prompt capillary refill. Neck is supple, nearly full range of motion, mild restriction in the right lateral bending and slight and rotation. Positive tender trigger point in the trapezius, teres, subscapularis, brachioradialis, pronator teres. Upper body strength is full. Negative Tinel's sign at wrist, cubital outlet, ulnar groove. No sensory loss to pinpoint, light touch Notes pain over left greater trochanteric bursa however has full range of motion, no pain with internal or external rotation. She is tender in the tensor fascia olivia and ITB. No problems on the right side. Dominate function is normal. She exhibits no indication of radicular symptoms with normal sensation, negative SLR bilaterally, no pain with internal/external rotation of hips. OMT myofascial release to tender trigger points in upper shoulder, right upper back and chest, forearm: with significant improvement and resolution of pain and tingling. ASSESSMENT/PLAN: 1. Subclinical hypothyroidism - ICD9: 244.8, ICD10: E03.8 (primary diagnosis) Educated on subclinical hypothyroidism, not sure if she really needs to be on medication but we will proceed with antibody checks which would justify medication if positive. Advised patient her current symptoms are not likely related to hypothyroidism. - THYROID PEROXIDASE ANTIBODY BLOOD - THYROGLOBULIN AB 2. Numbness and tingling in right hand - ICD9: 782.0, ICD10: R20.0, R20.2 Somatic dysfunction right upper extremity suspected. Patient was given demonstration on how to perform muscle energy technique myofascial self release. [facility] handouts on shoulder rehab were provided 3. 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) - ICD9: 303.93, ICD10: F10.21 Congratulated for efforts to maintain program and compliance. Suspect this is also somatic dysfunction however 4. Left hip pain - ICD9: 719.45, ICD10: M25.552 Did not have enough time to proceed with OMT on the left hip however I did offer to have patient come back in for treatment. In the interim [facility] handout on hip rehab was provided, Patient wishes to continue current medications without increasing. Follow-up as needed and in 4 weeks to monitor thyroid and medications with 1 of us. Silvestre Arriaga PA-C documented in this encounter [facility] 07-01-2022 Miscellaneous Notes Patient calls and scheduled an appointment with Sammy helton at 4 pm. Ms. kim Pt contacted to make appt as advised. Pt asking if can be seen by Dr. Martell virtually due to transportation issues, or if he would like to see her in-person for her states symptoms? Please call pt with update and assist with scheduling. Thank you. Would have her see one of us documented in this encounter [facility] 05-28-2022 Miscellaneous Notes This encounter was opened in error. documented in this encounter [facility] 05-11-2022 Miscellaneous Notes See MC message. Pt notified of lab results. Good Pacheco LPN TC to pt, left message to return call to office. When pt returns call to office- please notify of lab results/provider instructions as stated below AND see MyChart message from today (05/11) regarding pain. Good Pacheco LPN Called and left a voicemail for the Patients mother to give her a message to call back and ask for a nurse to receive the providers message. Haley Marie RN Can please let patient know that I received her lab results. Her thyroid was a little off. Has she been taking her medication daily? Any missed doses? The A1C (3 month average blood sugar) was 5.8% for an average glucose of 120, which is prediabetes. (diabetes is 6.5%). Please work on diabetic diet, by eating less sugar, bread, potato, pasta, rice, corn, corn syrup. Her vitamin D is a little low. I would encourage her to start daily vitamin D. I sent a script into the pharmacy for this. Her inflammatory markers were a little elevated. The remainder of her autoimmune labs were normal. I would probably suggest to repeat these in a few weeks to see if any changes. If no improvement, then I would consider a referral to rheumatology for further eval/treatment. Ursula Be APRN.MICHELLE documented in this encounter [facility] 05-03-2022 Instructions Ursula Be APRN.CNP - 05/03/2022 12:07 PM EST Get fasting labs. Start the naproxen twice daily w/ food. Schedule sleep study. Schedule with bariatrics. documented in this encounter [facility] 05-03-2022 History of Presen t illness Narrative This is a 31 year old female who presents today with: Patient presents with: Recheck: 1 month follow up; needs labs ordered- TSH, lipid, cmp, cbc; would also like labs for pain (inflammatory markers) HISTORY OF PRESENT ILLNESS: Swathi Wahl is a 31 year old female. Patient presents with: Recheck: 1 month follow up; needs labs ordered- TSH, lipid, cmp, cbc; would also like labs for pain (inflammatory markers) Refers that she needs some labwork. She has been seeing a cloth covered helmet puller and recommending labwork. Increased pain. Refers that she spoke to a nurse practitioner (mental health) and recommended rheum work-up. Describes that pain is in hips, shoulders, knees. Mostly waist down -- refers that progressively worsening. Refers that wrist and hands are also sore. Refers that the muscles on the top of her arms are sore. Did take naproxen last night, which helped. Sometimes ankles will swell. Father has hx of RA. Mother w/ hx of fibro. She also is interested in consult to bariatric medicine to consider bariatric surgery. She is meeting w/ cloth covered helmet puller and working on food choices. She is also in counseling to work on food addiction/eating disorders. + fatigue. Hx of sleep apnea. Last sleep study was in 2016 and borderline severe in supine position. Reports loud snoring. She has a hx of anemia. Taking armour thyroid. Anxiety Propranolol helping w/ BP and anxiety. She also was started on gabapentin, which has been helpful. 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 Struggled with addiction since age 16. In [facility]. 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 gabapentin (NEURONTIN) 100 mg capsule Take 1 capsule by mouth three times daily. buPROPion XL (WELLBUTRIN XL) 300 mg 24 hr tablet Take 1 tablet by mouth once daily. pantoprazole DR (PROTONIX) 40 mg tablet Take 1 tablet by mouth daily before breakfast. Take on empty stomach, 1/2 hr before meal. propranolol (INDERAL) 20 mg tablet Take 1 tablet by mouth twice daily. busPIRone (BUSPAR) 15 mg tablet Take 1 tablet by mouth three times daily. thyroid, pork, (ARMOUR THYROID) 60 mg Take 1 tablet by mouth once daily. No current facility-administered medications for this visit. FAMILY HISTORY Problem Relation Age of Onset Diabetes Mother Kidney Disease Mother Stroke Mother Thyroid Mother hypo Diabetes Father Cancer Maternal Grandmother Breast Cancer Other 2nd cousins Breast Cancer Other 2nd cousins Cervical Cancer Other 2nd cousins Cervical Cancer Other 2nd cousins Cervical Cancer Other 2nd cousins Heart Brother Heart Paternal Grandfather Alcohol/Drug Paternal Grandmother Alcohol/Drug Paternal Aunt Alcohol/Drug Paternal Uncle Social History Tobacco Use Smoking status: Former Types: Cigarettes Quit date: 01/28/2022 Years since quittin.2 Smokeless tobacco: Never Tobacco comments: half a pack daily Substance Use Topics Alcohol use: Yes Comment: rarely Drug use: No EXAM: BP 124/86 Pulse 67 Resp 18 Wt (!) 159.2 kg (351 lb) LMP 06/24/2021 SpO2 95% BMI 56.65 kg/m PHYSICAL EXAM: General Appearance: Well appearing, alert, in no acute distress, well-hydrated, well nourished.. Skin: Skin color, texture, turgor normal, no suspicious rashes or lesions. Head: Normocephalic, no masses, lesions, tenderness or abnormalities. Eyes: Anicteric sclera. Pupils are equally round and reactive to light. Extraocular movements are intact. . Lungs: Lungs clear to auscultation. No wheezing, rhonchi, rales.. Heart: RRR without murmur, gallop, or rubs. No ectopy. Extremities: No deformities, edema, skin discoloration, clubbing or cyanosis. Good capillary refill. . Neurologic: Gait normal. ASSESSMENT/PLAN: 1. Hypertension, essential - ICD9: 401.9, ICD10: I10 (primary diagnosis) - good control - Continue current medication(s) - Recommended regular aerobic exercise. - Recommend home blood pressure monitoring, to bring results in on next visit - Goal of BP <130/80 - COMP METABOLIC PANEL 2. Prediabetes - ICD9: 790.29, ICD10: R73.03 - COMP METABOLIC PANEL - LIPID PANEL BASIC - HGB A1C 3. Anemia, unspecified type - ICD9: 285.9, ICD10: D64.9 - CBC + DIFF - FERRITIN BLD - IRON + TIBC 4. Acquired hypothyroidism - ICD9: 244.9, ICD10: E03.9 Check labs. - TSH BLD - T4 FREE/FREE THYROX - T3 BLD 5. Polyarthralgia - ICD9: 719.49, ICD10: M25.50 Family hx of rheumatological condition. R/o autoimmune process. - C-REACTIVE PROTEIN (CRP) - SED RATE WESTERGREN - MAYLIN BLOOD - RHEUMATOID FACTOR BL - CCP ANTIBODY IGG - NAPROXEN 500 MG TABLET 6. Class 3 severe obesity without serious comorbidity with body mass index (BMI) of 50.0 to 59.9 in adult, unspecified obesity type (HCC) - ICD9: 278.01, V85.43, ICD10: E66.01, Z68.43 - [facility] 7. Vitamin D deficiency - ICD9: 268.9, ICD10: E55.9 - VITAMIN D 25 HYDROXY 8. ANDREW (obstructive sleep apnea) - ICD9: 327.23, ICD10: G47.33 - PAP TITRATION PSG (CPAP, BIPAP, ASV) Discussed treatment plan and patient voices understanding. Patient's questions answered appropriately. Medications and potential side effects were discussed and patient voices understanding. Return to the office as scheduled or as needed for worsening/no improvement. Ursula Be APRN.MICHELLE documented in this encounter [facility] 03-24-2022 Instructions Ursula Be APRN.CNP - 03/24/2022 12:17 PM EDT Start the propranolol twice daily. Recheck in 1 month. Sooner if needed. documented in this encounter [facility] 03-24-2022 History of Presen t illness Narrative This is a 31 year old female who presents today with: Patient presents with: Hypertension: Highest reported reading was 158/91 yesterday; sx associated with elevated BP- shaky, tired and feels like she wants to cry HISTORY OF PRESENT ILLNESS: Swathi Rivers Workman is a 31 year old female. Patient presents with: Hypertension: Highest reported reading was 158/91 yesterday; sx associated with elevated BP- shaky, tired and feels like she wants to cry Pt presents today with complaint of elelvated blood pressure. Feels releated to anxiety. She is currently in residential treatment. She has been ETOH and smoke free for 30 days. She is hoping for a medication that may help with both anxiety and BP. She denies any chest pain, shortness of breath, palpitations. No problems with swelling of the lower extremities. 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 Struggled with addiction since age 16. In [facility]. 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 Hypothyroidism Mood disorder (HCC) bipolar 1 PAST SURGICAL HISTORY Procedure Laterality Date TONSILLECTOMY HX age 18 ALLERGIES Depakote [Divalproex] and Meloxicam MEDICATIONS Current Outpatient Medications Medication Sig lamoTRIgine (LAMICTAL) 25 mg tablet Take 1 tablet by mouth twice daily. buPROPion XL (WELLBUTRIN XL) 300 mg 24 hr tablet Take 1 tablet by mouth once daily. pantoprazole DR (PROTONIX) 40 mg tablet Take 1 tablet by mouth daily before breakfast. Take on empty stomach, 1/2 hr before meal. busPIRone (BUSPAR) 15 mg tablet Take 1 tablet by mouth three times daily. thyroid, pork, (ARMOUR THYROID) 60 mg Take 1 tablet by mouth once daily. QUEtiapine (SEROQUEL) 100 mg tablet Take 1 tablet by mouth daily at bedtime. traZODone (DESYREL) 100 mg tablet Take 1 tablet by mouth daily at bedtime. famotidine (PEPCID) 20 mg tablet Take 1 tablet by mouth twice daily. ferrous sulfate 325 mg (65 mg iron) tablet Take 1 tablet by mouth twice daily. albuterol HFA (PROVENTIL HFA, VENTOLIN HFA) 90 mcg/actuation inhaler Inhale 2 Puffs as instructed every 6 hours as needed for wheezing/shortness of breath. No current facility-administered medications for this visit. FAMILY HISTORY Problem Relation Age of Onset Diabetes Mother Kidney Disease Mother Stroke Mother Thyroid Mother hypo Diabetes Father Cancer Maternal Grandmother Breast Cancer Other 2nd cousins Breast Cancer Other 2nd cousins Cervical Cancer Other 2nd cousins Cervical Cancer Other 2nd cousins Cervical Cancer Other 2nd cousins Heart Brother Heart Paternal Grandfather Alcohol/Drug Paternal Grandmother Alcohol/Drug Paternal Aunt Alcohol/Drug Paternal Uncle Social History Tobacco Use Smoking status: Every Day Smokeless tobacco: Never Tobacco comments: half a pack daily Substance Use Topics Alcohol use: Yes Comment: rarely Drug use: No EXAM: BP 136/90 Pulse 75 Resp 18 Wt (!) 155.6 kg (343 lb) LMP 06/24/2021 SpO2 98% BMI 55.36 kg/m PHYSICAL EXAM: General Appearance: Well appearing, alert, in no acute distress, well-hydrated, well nourished.. Skin: Skin color, texture, turgor normal, no suspicious rashes or lesions. Head: Normocephalic, no masses, lesions, tenderness or abnormalities. Eyes: Anicteric sclera. Pupils are equally round and reactive to light. Extraocular movements are intact. . Lungs: Lungs clear to auscultation. No wheezing, rhonchi, rales.. Heart: RRR without murmur, gallop, or rubs. No ectopy. Extremities: No deformities, edema, skin discoloration, clubbing or cyanosis. Good capillary refill. . Neurologic: Gait normal. ASSESSMENT/PLAN: 1. Hypertension, essential - ICD9: 401.9, ICD10: I10 (primary diagnosis) - newly diagnosed - Begin propranolol. - Recommended regular aerobic exercise. - Recommend home blood pressure monitoring, to bring results in on next visit - Goal of BP <130/80 - PROPRANOLOL 20 MG TABLET We will go ahead and start propranolol. Hopefully this will help with blood pressure control and anxiety. Plan to follow-up in 1 month. 2. Panic disorder without agoraphobia - ICD9: 300.01, ICD10: F41.0 As above. PROPRANOLOL 20 MG TABLET Discussed treatment plan and patient voices understanding. Patient's questions answered appropriately. Medications and potential side effects were discussed and patient voices understanding. Return to the office as scheduled or as needed for worsening/no improvement. Ursula Be APRN.MICHELLE This note was partially generated using [employer] voice recognition system. Note was reviewed for accuracy. There may be minor misspellings or grammar miscues with [employer] voice recognition. documented in this encounter [facility] 12-09-2018 History of Past i llness Narrative Problem Noted Date Resolved Date Excessive growth affec ting management of mother, antepartum 12/09/2018 01/11/2019 documented as of this encounter (statuses as of 03/24/2022) [facility] History of Past illness Narrative* Problem Noted Date Resolved Date Excessive growth affec ting management of mother, antepartum 12/09/2018 01/11/2019 documented as of this encounter (statuses as of 05/04/2022) [address]13-2019 History of Past illness Narrative* Problem Noted Date Resolved Date Excessive growth affec ting management of mother, antepartum 12/09/2018 01/11/2019 documented as of this encounter (statuses as of 05/11/2022) [address]13-2019 History of Past illness Narrative* Problem Noted Date Resolved Date Excessive growth affec ting management of mother, antepartum 12/09/2018 01/11/2019 documented as of this encounter (statuses as of 06/02/2022) [address]-2019 History of Past illness Narrative* Problem Noted Date Resolved Date Excessive growth affec ting management of mother, antepartum 12/09/2018 01/11/2019 documented as of this encounter (statuses as of 07/01/2022) [address]-2019 History of Past illness Narrative* Problem Noted Date Resolved Date Excessive growth affec ting management of mother, antepartum 12/09/2018 01/11/2019 documented as of this encounter (statuses as of 07/02/2022) [address]-2019 History of Past illness Narrative* Problem Noted Date Resolved Date Excessive growth affec ting management of mother, antepartum 12/09/2018 01/11/2019 documented as of this encounter (statuses as of 08/16/2022) [address]-2019 History of Past illness Narrative* Problem Noted Date Resolved Date Excessive growth affec ting management of mother, antepartum 12/09/2018 01/11/2019 documented as of this encounter (statuses as of 08/16/2022) [address]2019 History of Past illness Narrative* Problem Noted Date Resolved Date Excessive growth affec ting management of mother, antepartum 12/09/2018 01/11/2019 documented as of this encounter (statuses as of 08/19/2022) [address]2019 History of Past illness Narrative* Problem Noted Date Resolved Date Excessive growth affec ting management of mother, antepartum 12/09/2018 01/11/2019 documented as of this encounter (statuses as of 10/09/2022) [address]2019 History of Past illness Narrative* Problem Noted Date Resolved Date Excessive growth affec ting management of mother, antepartum 12/09/2018 01/11/2019 documented as of this encounter (statuses as of 11/25/2022) [facility] History of Past illness Narrative* Problem Noted Date Diagnosed Date Resolved Date Excessive growth affec ting management of mother, antepartum 12/09/2018 01/11/2019 documented as of this encounter (statuses as of 01/20/2023) [facility] History of Past illness Narrative* Problem Noted Date Diagnosed Date Resolved Date Excessive growth affec ting management of mother, antepartum 12/09/2018 01/11/2019 documented as of this encounter (statuses as of 03/14/2023) [facility] History of Past illness Narrative* Problem Noted Date Diagnosed Date Resolved Date Excessive growth affec ting management of mother, antepartum 12/09/2018 01/11/2019 documented as of this encounter (statuses as of 04/15/2023) [facility] History of Past illness Narrative* Problem Noted Date Diagnosed Date Resolved Date Excessive growth affec ting management of mother, antepartum 12/09/2018 01/11/2019 documented as of this encounter (statuses as of 09/07/2023) [facility] + Plan note No data available for this section [facility] Evaluation note* Diagnosis Hypertension, essential- Primary Unspecified essential hypertension Panic disorder without agoraphobia documented in this encounter [facility] note* Diagnosis Hypertension, essential- Primary Unspecified essential hypertension Prediabetes Other abnormal glucose Anemia, unspecified type Acquired hypothyroidism Unspecified hypothyroidism Polyarthralgia Pain in joint, multiple sites Class 3 severe obesity without serious comorbidity with body mass index (BMI) of 50.0 to 59.9 in adult, unspecified obesity type (HCC) Vitamin D deficiency Unspecified vitamin D deficiency ANDREW (obstructive sleep apnea) Obstructive sleep apnea (adult) (pediatric) documented in this encounter [facility] note* Diagnosis Vitamin D deficiency- Primary Unspecified vitamin D deficiency [facility] Diagnosis OPENED IN ERROR- Primary To allow closing an encounter opened in error (used in SmartSet) documented in this encounter [facility] note* Diagnosis Subclinical hypothyroidism- Primary Other specified acquired hypothyroidism Numbness and tingling in right hand Disturbance of skin sensation 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) Other and unspecified alcohol dependence, unspecified drinking behavior Left hip pain Pain in joint, pelvic region and thigh [facility] Diagnosis Acquired hypothyroidism Unspecified hypothyroidism [facility] Diagnosis Carpal tunnel syndrome, bilateral- Primary Carpal tunnel syndrome [facility] Diagnosis 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 [facility] Diagnosis Acute conjunctivitis of right eye, unspecified acute conjunctivitis type- Primary [facility] Diagnosis Wellness examination- Primary Acquired hypothyroidism Unspecified hypothyroidism Prediabetes Other abnormal glucose Polyarthralgia Pain in joint, multiple sites Elevated sed rate Elevated sedimentation rate Vitamin D deficiency Unspecified vitamin D deficiency Anemia, unspecified type Gastroesophageal reflux disease, unspecified whether esophagitis present Encounter for immunization Need for other specified prophylactic vaccination against single bacterial disease [facility] Diagnosis Prediabetes- Primary Other abnormal glucose Polyarthralgia Pain in joint, multiple sites [facility]* Diagnosis Prediabetes- Primary Other abnormal glucose [facility] Diagnosis Morbid obesity with BMI of 50.0-59.9, adult (HCC)- Primary Morbid obesity documented in this encounter [facility] note* Diagnosis Encounter for gynecological examination (general) (routine) without abnormal findings- Primary Screening for cervical cancer Screening for malignant neoplasm of the cervix Encounter for screening for human papillomavirus (HPV) Special screening examination for human papillomavirus (HPV) Class 3 severe obesity without serious comorbidity with body mass index (BMI) of 50.0 to 59.9 in adult, unspecified obesity type (HCC) [facility] Diagnosis Mood disorder (HCC)- Primary Unspecified episodic mood disorder Anxiety Anxiety state, unspecified Panic attack Panic disorder without agoraphobia Morbid obesity (HCC) Morbid obesity Routine health maintenance Routine general medical examination at a health care facility Back ache Backache, unspecified Depression Depressive disorder, not elsewhere classified Nausea- Primary Nausea alone Diarrhea, unspecified type [facility] Diagnosis Mood disorder (HCC)- Primary Unspecified episodic mood disorder Anxiety Anxiety state, unspecified Panic attack Panic disorder without agoraphobia Morbid obesity (HCC) Morbid obesity Routine health maintenance Routine general medical examination at a health care facility Back ache Backache, unspecified Depression Depressive disorder, not elsewhere classified Elevated hemoglobin A1c- Primary Other abnormal blood chemistry Malaise and fatigue Other malaise and fatigue ANDREW (obstructive sleep apnea) Obstructive sleep apnea (adult) (pediatric) Elevated cholesterol Pure hypercholesterolemia Elevated blood pressure reading without diagnosis of hypertension Screening cholesterol level Screening for lipoid disorders Screening for deficiency anemia Screening for other and unspecified deficiency anemia Screening for diabetes mellitus Screening for metabolic disorder Screening for thyroid disorder Encounter for vitamin deficiency screening Screening for other and unspecified endocrine, nutritional, metabolic, and immunity disorders Morbid obesity with BMI of 50.0-59.9, adult (HCC) Morbid obesity documented in this encounter [facility] note* Diagnosis Mood disorder (HCC)- Primary Unspecified episodic mood disorder Anxiety Anxiety state, unspecified Panic attack Panic disorder without agoraphobia Morbid obesity (HCC) Morbid obesity Routine health maintenance Routine general medical examination at a health care facility Back ache Backache, unspecified Depression Depressive disorder, not elsewhere classified Polyarthralgia Pain in joint, multiple sites documented in this encounter [facility] note* Diagnosis Mood disorder (HCC)- Primary Unspecified episodic mood disorder Anxiety Anxiety state, unspecified Panic attack Panic disorder without agoraphobia Morbid obesity (HCC) Morbid obesity Routine health maintenance Routine general medical examination at a health care facility Back ache Backache, unspecified Depression Depressive disorder, not elsewhere classified URI, acute- Primary Acute upper respiratory infections of unspecified site [facility] No data available for this section [facility] Reason for referral (narrative)* Diagnostic Procedure Only (Routine) - New Request Specialty Diagnoses / Procedures Referred By Brianna t Referred To Contact XR IMAGING Diagnoses Polyarthralgia Procedures XR SACROILIAC JOINTS 2V AP PELVIS/FERGUESON RADIOLOGIC EXAMINATION SACROILIAC JNTS <3 VIEWS Alberta Edward MD [address] [place] [address] [place] [address] Referral ID Status Reason Start Date Expiration Date Visits Requested Visits Authorized [id number] New Request Auto-Generat ed Referral 4 04/13/2025 1 1 * Diagnostic Procedure Only (Routine) - New Request Specialty Diagnoses / Procedures Referred By Contac t Referred To Contact XR IMAGING Diagnoses Polyarthralgia Procedures XR LUMBAR GENERAL 3V AP/LAT/L5-S1 RADEX SPINE LUMBOSACRAL 2/3 VIEWS Alberta Edward MD [address] [place] [address] [place] [address] Referral ID Status Reason Start Date Expiration Date Visits Requested Visits Authorized [id number] New Request Auto-Generat ed Referral 4 04/13/2025 1 1 * Diagnostic Procedure Only (Routine) - New Request Specialty Diagnoses / Procedures Referred By Contac t Referred To Contact XR IMAGING Diagnoses Polyarthralgia Procedures XR KNEE GENERAL 4V AP BOTH/PA BOTH/LAT/MERC BILATERAL RADIOLOGIC EXAM KNEE COMPLETE 4/MORE VIEWS Alberta Edward MD [address] [place] [address] Xr Imaging [id number] Referral ID Status Reason Start Date Expiration Date Visits Requested Visits Authorized [id number] New Request Auto-Generat ed Referral 4 04/13/2025 1 1 * Diagnostic Procedure Only (Routine) - New Request Specialty Diagnoses / Procedures Referred By Contac t Referred To Contact XR IMAGING Diagnoses Polyarthralgia Procedures XR HAND GENERAL 3V PA/LAT/OBL BILATERAL RADEX HAND MINIMUM 3 VIEWS Alberta Edward MD [address] [facility] [place] [id number] [place] [address] Referral ID Status Reason Start Date Expiration Date Visits Requested Visits Authorized [id number] New Request Auto-Generat ed Referral 4 04/13/2025 1 1 * Diagnostic Procedure Only (Routine) - New Request Specialty Diagnoses / Procedures Referred By Brianna tong Referred To Contact XR IMAGING Diagnoses Polyarthralgia Procedures XR FOOT GENERAL 3V AP/LAT/OBL BILATERAL RADEX FOOT COMPLETE MINIMUM 3 VIEWS Alberta Edward MD [address] [place] [address] Xr Imaging [place] [address] Referral ID Status Reason Start Date Expiration Date Visits Requested Visits Authorized [id number] New Request Auto-Generat ed Referral 4 04/13/2025 1 1 [facility] Summary Purpose Family History No Family History Records FoundNo Family History Records FoundNo Family History Records FoundNo Family History Records Found Advance Directives No Advanced Directives Records FoundNo Advanced Directives Records FoundNo Advanced Directives Records FoundNo Advanced Directives Records Found Reason for Referral Specialty Diagnoses / Procedures Referred By Brianna tong Referred To Contact Nutrition Diagnoses Elevated hemoglobin A1c Malaise and fatigue Elevated cholesterol Elevated blood pressure reading without diagnosis of hypertension Morbid obesity with BMI of 50.0-59.9, adult (HCC) Procedures CONSULT TO NUTRITION THERAPY MEDICAL NUTRITION ASSMT&IVNTJ INDIV EACH 15 [place] Angela Crawford MD [address] [place] [address] Referral ID Status Reason Start Date Expiration Date Visits Requested Visits Authorized [id number] Authorized PCP Requested Referral 4 03/13/2025 1 4 Specialty Diagnoses / Procedures Referred By Brianna tong Referred To Contact Diagnoses Elevated hemoglobin A1c Malaise and fatigue ANDREW (obstructive sleep apnea) Elevated cholesterol Elevated blood pressure reading without diagnosis of hypertension Morbid obesity with BMI of 50.0-59.9, adult (HCC) Procedures CONSULT [facility] OFFICE/OUTPATIENT NEW HIGH MDM 60 MINUTES Angela Crawford MD [address] [place] [address] Referral ID Status Reason Start Date Expiration Date Visits Requested Visits Authorized [id number] Authorized PCP Requested Referral 4 03/13/2025 1 1 Specialty Diagnoses / Procedures Referred By Contac t Referred To Contact Diagnoses Morbid obesity with BMI of 50.0-59.9, adult (HCC) ANDREW (obstructive sleep apnea) Elevated blood pressure reading without diagnosis of hypertension Malaise and fatigue Procedures CONSULT TO SLEEP MEDICINE - ADULT OFFICE/OUTPATIENT NEW HIGH MDM 60 MINUTES Angela Crawford MD [address] [place] [address] Referral ID Status Reason Start Date Expiration Date Visits Requested Visits Authorized [id number] Authorized PCP Requested Referral 4 03/13/2025 1 1 Specialty Diagnoses / Procedures Referred By Contac t Referred To Contact [facility] Diagnoses Morbid obesity with BMI of 50.0-59.9, adult (HCC) ANDREW (obstructive sleep apnea) Elevated blood pressure reading without diagnosis of hypertension Malaise and fatigue Procedures HOME SLEEP APNEA TEST (HSAT) SLEEP STD AIRFLOW HRT RATE&O2 SAT EFFORT UNATT Angela Crawford MD [address] [place] [address] [facility] [address] [place] [address] Referral ID Status Reason Start Date Expiration Date Visits Requested Visits Authorized [id number] New Request Auto-Generat ed Referral 4 03/13/2025 1 1 Specialty Diagnoses / Procedures Referred By Contac t Referred To Contact Diagnoses Morbid obesity with BMI of 50.0-59.9, adult (HCC) Procedures CONSULT TO [facility] WEIGHT MANAGEMENT PROGRAM OFFICE/OUTPATIENT NEW [facility] 60 MINUTES Ursula Be APRN.INSURANCE AGENCY MANAGER [address] [place] [address] Referral ID Status Reason Start Date Expiration Date Visits Requested Visits Authorized [id number] Authorized PCP Requested Referral Auto-Generate d Referral 11/15/2023 11/14/2024 1 1 Specialty Diagnoses / Procedures Referred By Contac t Referred To Contact Rheumatology Diagnoses Polyarthralgia Procedures CONSULT TO RHEUM/IMMUN DISEASE OFFICE/OUTPATIENT [facility] 60 MINUTES Ursula Be APRN.INSURANCE AGENCY MANAGER [address] [place] [address] Referral ID Status Reason Start Date Expiration Date Visits Requested Visits Authorized [id number] Authorized PCP Requested Referral 09/23/2023 09/22/2024 1 1 Specialty Diagnoses / Procedures Referred By Contac t Referred To Contact Diagnoses Prediabetes Ursula Be APRN.INSURANCE AGENCY MANAGER [address] [place] [address] Referral ID Status Reason Start Date Expiration Date V isits Requested Visits Authorized [id number] Pending Review 1 1 Specialty Diagnoses / Procedures Referred By Contac t Referred To Contact Orthopedics Diagnoses Carpal tunnel syndrome, bilateral Procedures CONSULT TO ORTHOPAEDICS OFFICE/OUTPATIENT [facility] 60-74 MINUTES Ursula Be APRN.INSURANCE AGENCY MANAGER [address] [place] [address] Referral ID Status Reason Start Date Expiration Date Visits Requested Visits Authorized [id number] Pending Review PCP Requested Referral 08/13/2022 08/13/2023 1 1 Specialty Diagnoses / Procedures Referred By Contac t Referred To Contact Diagnoses Class 3 severe obesity without serious comorbidity with body mass index (BMI) of 50.0 to 59.9 in adult, unspecified obesity type (HCC) Procedures CONSULT [facility] OFFICE/OUTPATIENT [facility] 60-74 MINUTES Ursula Be APRN.INSURANCE AGENCY MANAGER [address] [place] [address] Referral ID Status Reason Start Date Expiration Date Visits Requested Visits Authorized [id number] Authorized PCP Requested Referral 05/03/2022 05/03/2023 1 1 Additional Source Comments INFORMATION SOURCE (unrecogn ized section and content) DATE CREATED AUTHOR 11/15/2017 [facility] DATE CREATED AUTHOR AUTHOR'S ORGANIZ ATION 10/24/2020 [facility] DATE CREATED AUTHOR AUTHOR'S ORGANIZ ATION 12/17/2023 [facility] DATE CREATED AUTHOR AUTHOR'S ORGANIZ ATION 03/15/2024 [facility] Source Comments (unrecognize d section and content) In the event this informatio n is protected by the Federal Confidentiality of Alcohol and Drug Abuse Patient Records regulations: The Federal rules restrict any use of the information to criminally investigate or prosecute any alcohol or drug abuse patient.[facility] the event this information is protected by the Federal Confidentiality of Alcohol and Drug Abuse Patient Records regulations: The Federal rules restrict any use of the information to criminally investigate or prosecute any alcohol or drug abuse patient.[facility] the event this information is protected by the Federal Confidentiality of Alcohol and Drug Abuse Patient Records regulations: The Federal rules restrict any use of the information to criminally investigate or prosecute any alcohol or drug abuse patient.[facility] the event this information is protected by the Federal Confidentiality of Alcohol and Drug Abuse Patient Records regulations: The Federal rules restrict any use of the information to criminally investigate or prosecute any alcohol or drug abuse patient.[facility] the event this information is protected by the Federal Confidentiality of Alcohol and Drug Abuse Patient Records regulations: The Federal rules restrict any use of the information to criminally investigate or prosecute any alcohol or drug abuse patient.[facility] the event this information is protected by the Federal Confidentiality of Alcohol and Drug Abuse Patient Records regulations: The Federal rules restrict any use of the information to criminally investigate or prosecute any alcohol or drug abuse patient.[facility] the event this information is protected by the Federal Confidentiality of Alcohol and Drug Abuse Patient Records regulations: The Federal rules restrict any use of the information to criminally investigate or prosecute any alcohol or drug abuse patient.[facility] the event this information is protected by the Federal Confidentiality of Alcohol and Drug Abuse Patient Records regulations: The Federal rules restrict any use of the information to criminally investigate or prosecute any alcohol or drug abuse patient.[facility] the event this information is protected by the Federal Confidentiality of Alcohol and Drug Abuse Patient Records regulations: The Federal rules restrict any use of the information to criminally investigate or prosecute any alcohol or drug abuse patient.[facility] HospitalIn the event this information is protected by the Federal Confidentiality of Alcohol and Drug Abuse Patient Records regulations: The Federal rules restrict any use of the information to criminally investigate or prosecute any alcohol or drug abuse patient.[facility] HospitalIn the event this information is protected by the Federal Confidentiality of Alcohol and Drug Abuse Patient Records regulations: The Federal rules restrict any use of the information to criminally investigate or prosecute any alcohol or drug abuse patient.[facility] HospitalIn the event this information is protected by the Federal Confidentiality of Alcohol and Drug Abuse Patient Records regulations: The Federal rules restrict any use of the information to criminally investigate or prosecute any alcohol or drug abuse patient.[facility] HospitalIn the event this information is protected by the Federal Confidentiality of Alcohol and Drug Abuse Patient Records regulations: The Federal rules restrict any use of the information to criminally investigate or prosecute any alcohol or drug abuse patient.[facility] HospitalIn the event this information is protected by the Federal Confidentiality of Alcohol and Drug Abuse Patient Records regulations: The Federal rules restrict any use of the information to criminally investigate or prosecute any alcohol or drug abuse patient.[facility] HospitalIn the event this information is protected by the Federal Confidentiality of Alcohol and Drug Abuse Patient Records regulations: The Federal rules restrict any use of the information to criminally investigate or prosecute any alcohol or drug abuse patient.[facility] HospitalIn the event this information is protected by the Federal Confidentiality of Alcohol and Drug Abuse Patient Records regulations: The Federal rules restrict any use of the information to criminally investigate or prosecute any alcohol or drug abuse patient.[facility] HospitalIn the event this information is protected by the Federal Confidentiality of Alcohol and Drug Abuse Patient Records regulations: The Federal rules restrict any use of the information to criminally investigate or prosecute any alcohol or drug abuse patient.[facility] HospitalIn the event this information is protected by the Federal Confidentiality of Alcohol and Drug Abuse Patient Records regulations: The Federal rules restrict any use of the information to criminally investigate or prosecute any alcohol or drug abuse patient.[facility] HospitalIn the event this information is protected by the Federal Confidentiality of Alcohol and Drug Abuse Patient Records regulations: The Federal rules restrict any use of the information to criminally investigate or prosecute any alcohol or drug abuse patient.[facility] HospitalIn the event this information is protected by the Federal Confidentiality of Alcohol and Drug Abuse Patient Records regulations: The Federal rules restrict any use of the information to criminally investigate or prosecute any alcohol or drug abuse patient.[facility] HospitalIn the event this information is protected by the Federal Confidentiality of Alcohol and Drug Abuse Patient Records regulations: The Federal rules restrict any use of the information to criminally investigate or prosecute any alcohol or drug abuse patient.[facility] HospitalIn the event this information is protected by the Federal Confidentiality of Alcohol and Drug Abuse Patient Records regulations: The Federal rules restrict any use of the information to criminally investigate or prosecute any alcohol or drug abuse patient.[facility] HospitalIn the event this information is protected by the Federal Confidentiality of Alcohol and Drug Abuse Patient Records regulations: The Federal rules restrict any use of the information to criminally investigate or prosecute any alcohol or drug abuse patient.[facility] HospitalIn the event this information is protected by the Federal Confidentiality of Alcohol and Drug Abuse Patient Records regulations: The Federal rules restrict any use of the information to criminally investigate or prosecute any alcohol or drug abuse patient.[facility] HospitalIn the event this information is protected by the Federal Confidentiality of Alcohol and Drug Abuse Patient Records regulations: The Federal rules restrict any use of the information to criminally investigate or prosecute any alcohol or drug abuse patient.[facility] HospitalIn the event this information is protected by the Federal Confidentiality of Alcohol and Drug Abuse Patient Records regulations: The Federal rules restrict any use of the information to criminally investigate or prosecute any alcohol or drug abuse patient.[facility] HospitalIn the event this information is protected by the Federal Confidentiality of Alcohol and Drug Abuse Patient Records regulations: The Federal rules restrict any use of the information to criminally investigate or prosecute any alcohol or drug abuse patient.[facility] HospitalIn the event this information is protected by the Federal Confidentiality of Alcohol and Drug Abuse Patient Records regulations: The Federal rules restrict any use of the information to criminally investigate or prosecute any alcohol or drug abuse patient.[facility] Reason for Visit (unrecogniz ed section and content) Reason Comments Hypertension Highest reported german ding was 158/91 yesterday; sx associated with elevated BP- shaky, tired and feels like she wants to cry Reason Comments Recheck 1 month follow up; n eeds labs ordered- TSH, lipid, cmp, cbc; would also like labs for pain (inflammatory markers) Reason Comments Results Reason Onset Date Comments Opened In Error 05/28/2022 Reason Comments Follow Up Reason Onset Date Comments Refill Request 08/15/2022 Refill Request 08/16/2022 Reason Comments Results Reason Comments Conjunctivitis Evaluation Reason Onset Date Comments Refill Request 03/13/2023 Reason Comments Conjunctivitis Possibly pink x1day. Reason Comments Yearly Exam Ear Pain R ear with clear apoorva inage x5 days; no fever/sore throat; Reason Comments Insurance Authorization Metformin ER Reason Comments Discussion Would like to discus s weight loss medication- wegovy Reason Comments Insurance Authorization Wegovy Reason Comments Diarrhea Nausea, HERNANDEZ x 1 day Reason Onset Date Comments Weight Management 03/13/2024 Specialty Diagnoses / Procedures Referred By Brianna tong Referred To Contact Diagnoses Morbid obesity with BMI of 50.0-59.9, adult (HCC) Procedures CONSULT TO [facility] WEIGHT MANAGEMENT PROGRAM OFFICE/OUTPATIENT NEW HIGH MDM 60 MINUTES Ursula Be, COUNSELING PROGRAM LEADER.INSURANCE AGENCY MANAGER [address] [place] [address] Referral ID Status Reason Start Date Expiration Date V isits Requested Visits Authorized [id number] Closed PCP Requested Referral Auto-Generated Referral 11/15/2023 11/14/2024 1 1 Reason Comments New Patient Specialty Diagnoses / Procedures Referred By Brianna tong Referred To Contact Rheumatology Diagnoses Polyarthralgia Procedures CONSULT TO RHEUM/IMMUN DISEASE OFFICE/OUTPATIENT NEW HIGH MDM 60 MINUTES Ursula Be APRN.CNP [address] [place] [address] Referral ID Status Reason Start Date Expiration Date V isits Requested Visits Authorized [id number] Closed PCP Requested Referral 09/23/2023 09/22/2024 1 [address], bodyaches x this AM, chest congestion Care Teams (unrecognized sec tion and content) Java Front End Web Developer Relationship Specialty Start Date End Date Jony Martell MD [address] [place], [place] [id number] PCP - General Family Medicine 10/16/15 Java Front End Web Developer Relationship Specialty Start Date End Date Jony Martell MD [address] [place], [place] [address] PCP - General Family Medicine 10/16/15 Java Front End Web Developer Relationship Specialty Start Date End Date Jony Martell MD [address] [place], [place] [id number] PCP - General Family Medicine 10/16/15 Java Front End Web Developer Relationship Specialty Start Date End Date Jony Martell MD [address] [place] [address] PCP - General Family Medicine 10/16/15 Java Front End Web Developer Relationship Specialty Start Date End Date Jony Martell MD [address] [place] [address] PCP - General Family Medicine 10/16/15 Java Front End Web Developer Relationship Specialty Start Date End Date Jony Martell MD [address] [place], [place] [address] PCP - General Family Medicine 10/16/15 Java Front End Web Developer Relationship Specialty Start Date End Date Jony Martell MD [address] [facility] [place] [address] PCP - General Family Medicine 10/16/15 Java Front End Web Developer Relationship Specialty Start Date End Date Jony Martell MD [address] [place] [address] PCP - General Family Medicine 10/16/15 Java Front End Web Developer Relationship Specialty Start Date End Date Jony Martell MD [address] [place] [address] PCP - General Family Medicine 10/16/15 Java Front End Web Developer Relationship Specialty Start Date End Date Jony Martell MD [address] [place] [address] PCP - General Family Medicine 10/16/15 Java Front End Web Developer Relationship Specialty Start Date End Date Jony Martell MD [address] [place] [address] PCP - General Family Medicine 10/16/15 Java Front End Web Developer Relationship Specialty Start Date End Date Jony Martell MD [address] [place] [address] PCP - General Family Medicine 10/16/15 Java Front End Web Developer Relationship Specialty Start Date End Date Jony Martell MD [address] [facility] [address] PCP - General Family Medicine 10/16/15 Java Front End Web Developer Relationship Specialty Start Date End Date Jony Martell MD [address] [place] [address] PCP - General Family Medicine 10/16/15 Java Front End Web Developer Relationship Specialty Start Date End Date Jony Martell MD [address] [place], [place] [address] PCP - General Family Medicine 10/16/15 Java Front End Web Developer Relationship Specialty Start Date End Date Jony Martell MD [address] [place], [place] [address] PCP - General Family Medicine 10/16/15 Java Front End Web Developer Relationship Specialty Start Date End Date Jony Martell MD [address] [place] [address] PCP - General Family Medicine 10/16/15 Java Front End Web Developer Relationship Specialty Start Date End Date Jony Martell MD [address] [place] [address] PCP - General Family Medicine 10/16/15 Java Front End Web Developer Relationship Specialty Start Date End Date Jony Martell MD [address] [place] [address] PCP - General Family Medicine 10/16/15 Java Front End Web Developer Relationship Specialty Start Date End Date Jony Martell MD [address] [place] [address] PCP - General Family Medicine 10/16/15 Java Front End Web Developer Relationship Specialty Start Date End Date Jony Martell MD [address] [place], [place] [address] PCP - General Family Medicine 10/16/15 Java Front End Web Developer Relationship Specialty Start Date End Date Jony Martell MD [address] [place] [address] PCP - General Family Medicine 10/16/15 Java Front End Web Developer Relationship Specialty Start Date End Date Jony Martell MD [address] [place], [place] [id number] PCP - General [facility] 10/16/15 Java Front End Web Developer Relationship Specialty Start Date End Date Jony Martell MD [address] [place], [place] [id number] PCP - General [facility] 10/16/15 Java Front End Web Developer Relationship Specialty Start Date End Date Jony Martell MD [address] [place], [place] [address] PCP - General Family [facility] 10/16/15 FOR RECORDS PERTAINING TO PATIENTS WHO ARE OR HAVE BEEN ENROLLED IN A CHEMICAL DEPENDENCY/SUBSTANCEABUSE PROGRAM, SOME INFORMATION MAY BE OMITTED. This clinical summary was aggregated from multiple sources. Caution should be exercised in using it in the provision of clinical care. This summary normalizes information from multiple sources, and as a consequence, information in this document may materially change the coding, format and clinical context of patient data. In addition, data may be omitted in some cases. CLINICAL DECISIONS SHOULD BE BASED ON THE PRIMARY CLINICAL RECORDS. [facility] [employer] [facility]. provides no warranty or guarantee of the accuracy or completeness of information in this document.
[2024-03-18 17:39] VITALS: BP 125/69; PULSE 86; RESP 13; O2SAT 97
--- NOTE | 2024-03-18 17:41 | EX.ED.DYSGE1 ---
HPI History of Present Illness Chief Complaint: ETOH Intox Narrative Narrative: Chief complaint and HPI: Requesting alcohol detox. 33-year-old female with history of alcohol abuse presents for evaluation of detox. Patient states that she was sober for multiple years until 2 months ago. She states she started drinking secondary to stress and anxiety. Patient states her mother was just diagnosed with Parkinson's disease in which she wants to be sober to help her. She endorses drinking about 20 shots a day of whiskey. She states she has withdrawn in the past. She states she tried to detox at home a couple days ago and failed. She denies any withdrawal symptoms currently. She states her last drink was about an hour ago. She denies any illicit drug use. Review of systems: See HPI Medications: As listed on the chart Allergies: As listed on the chart PFSH: Per chart Vital signs: As listed on the chart. Reviewed. Physical exam: Gen: A&O x3, NAD Head: Normocephalic, atraumatic Eyes: No sclera icterus, conjunctiva clear ENT: Moist mucous membranes Neck: Trachea midline, No JVD CV: RRR, no murmurs, no peripheral edema Resp: Lungs CTA BL, no w/r/c GI: Abd soft, non-distended, non-tender, no r/r/g Musc: Full ROM, no deformity Skin: Warm, dry Neuro: Alert, oriented, grossly intact, sensation intact Psych: Cooperative, appropriate mood and affect [facility] Medical History (Updated 03/18/24 @ 16:39 by Bianca Eli) Substance abuse Hypercholesterolemia PTSD (post-traumatic stress disorder) Alcohol abuse Anxiety Hypothyroidism Bipolar disorder Depression Home Medications ?Medication ?Instructions ?Recorded ?Last Taken ?Type buspirone 15 mg tablet 15 mg PO TID mood 06/06/20 02/23/22 History famotidine 20 mg tablet 20 mg PO BID gerd 06/06/20 02/23/22 History ferrous sulfate 325 mg (65 mg 325 mg PO BID supplement 06/06/20 02/22/22 History iron) tablet hydroxyzine pamoate 50 mg capsule 50 mg PO Q8H PRN PRN Anxiety 06/06/20 06/05/20 History thyroid (pork) 60 mg tablet 75 mg PO DAILY thyroid 06/06/20 02/23/22 History trazodone 100 mg tablet 100 mg PO QHS sleep 06/06/20 02/21/22 History atorvastatin 20 mg tablet 20 mg PO DAILY cholesterol 02/23/22 02/22/22 History lamotrigine 25 mg tablet 25 mg PO DAILY mood 02/23/22 02/23/22 History pantoprazole 40 mg tablet,delayed 40 mg PO DAILY gerd 02/25/22 Unknown History release ciprofloxacin HCl 0.3 % eye drops See Rx Instructions ophthalmic 12/09/22 Unknown Rx (eye) .COMPLEX #5 mL atomoxetine 40 mg capsule 40 mg PO DAILY 03/18/24 Unknown History bupropion HCl 150 mg 24 hr tablet, 150 mg PO QPM 03/18/24 Unknown History extended release bupropion HCl 300 mg 24 hr tablet, 300 mg PO DAILY 03/18/24 Unknown History extended release buspirone 30 mg tablet 30 mg PO BID 03/18/24 Unknown History cariprazine 1.5 mg capsule 1.5 mg PO DAILY 03/18/24 Unknown History (Vraylar) celecoxib 200 mg capsule 200 mg PO DAILY 03/18/24 Unknown History clonidine HCl 0.1 mg tablet 0.1 mg PO TID 03/18/24 Unknown History gabapentin 300 mg capsule 300 mg PO TID 03/18/24 Unknown History lamotrigine 200 mg tablet 200 mg PO DAILY 03/18/24 Unknown History mirtazapine 7.5 mg tablet 7.5 mg PO QHS 03/18/24 Unknown History Allergy/AdvReac Type Severity Reaction Status Date / Time divalproex sodium (From Allergy Rash Verified 03/18/24 15:42 Depakote) meloxicam Allergy Rash Verified 03/18/24 15:42 Family History Grandfather Heart disease Father Diabetes Mother Diabetes Surgical History Hx of tonsillectomy Social History Smoking Status: Former smoker EXAM Physical Exam Const Vital Signs: 03/18/24 15:39 03/18/24 17:39 Temperature 98 F Temperature Source Oral Pulse Rate 99 86 Respiratory Rate 18 13 Blood Pressure 144/96 H 125/69 H Blood Pressure Mean 112 87 Pulse Ox 98 97 Oxygen Delivery Method Room Air Room Air MDM MDM MDM Narrative Medical decision making narrative: Patient is a 33-year-old female with history of alcohol abuse who presents for detox. Last drink was approximately 1 hour hour ago. Currently denying withdrawal symptoms. Will obtain basic labs and urine as well as alcohol level. Patient will warrant admission for detox. CBC without leukocytosis or anemia. CMP without SCOTT or transaminitis. Serum negative. Urine drug screen positive for amphetamines and ecstasy. Alcohol level 75. Patient will warrant admission for need for alcohol detox. Patient was discussed with Dr. Argueta accepted. EKG: Interpreted by me/EM physician: EKG shows normal sinus rhythm without any acute ischemic changes. Heart rate 88. Impression: 1. Requesting detox for alcohol abuse 2. Methamphetamine abuse 3. Ecstasy abuse Lab Data Labs: Laboratory Results - last 24 hr 03/18/24 03/18/24 16:38 17:49 WBC 9.3 RBC 4.25 Hgb 12.8 Hct 37.9 MCV 89.2 MCH 30.1 MCHC 33.8 RDW Std Deviation 48.2 H RDW Coeff of Stacey 14.9 H Plt Count 246 MPV 10.7 Immature Gran % (Auto) 0.300 Neut % (Auto) 56.3 Lymph % (Auto) 33.3 [place] % (Auto) 8.8 Eos % (Auto) 0.9 Baso % (Auto) 0.4 Absolute Neuts (auto) 5.2 Absolute Lymphs (auto) 3.09 Nucleated RBC % 0 Sodium 139 Potassium 3.6 Chloride 107 Carbon Dioxide 26.0 Anion Gap 6 BUN 15 Creatinine 0.71 Estim Creat Clear Calc 174.45 Est GFR (MDRD) Af Amer 121 Est GFR (MDRD) Non-Af 100 BUN/Creatinine Ratio 21.2 H Glucose 70 L Calcium 8.9 Total Bilirubin 0.30 AST 16 ALT 26 Alkaline Phosphatase 72 Total Protein 7.5 Albumin 3.5 Globulin 4.0 Albumin/Globulin Ratio 0.9 Serum , Qual NEGATIVE Urine Opiates Screen NEGATIVE Urine Methadone Screen NEGATIVE Ur Barbiturates Screen NEGATIVE Ur Phencyclidine Scrn NEGATIVE Ur Amphetamines Screen POSITIVE H MDMA (Ecstasy) Screen POSITIVE H U Benzodiazepines Scrn NEGATIVE Urine Cocaine Screen NEGATIVE U Cannabinoids Screen NEGATIVE Ur Drug Screen Comment Ethyl Alcohol 75.0 Discharge Plan Triage Chief Complaint: ETOH Intox ED Provider: José Antonio Lassiter Dx/Rx/DC Orders Prescriptions: No Action ciprofloxacin HCl 0.3 % drops See Rx Instructions ophthalmic (eye) .COMPLEX Qty: 5 0RF Rx Instructions: put 1-2 drps in affected eye every 2hr while awake up to 8 times/day x2 days; then 4 times/day x5days ophthalmic (eye) hydroxyzine pamoate 50 MG capsule 50 mg PO Q8H PRN PRN (Reason: Anxiety) famotidine 20 MG tablet 20 mg PO BID trazodone 100 MG tablet 100 mg PO QHS ferrous sulfate 325 MG tablet 325 mg PO BID buspirone 15 MG tablet 15 mg PO TID thyroid (pork) 60 MG tablet 75 mg PO DAILY atorvastatin 20 mg tablet 20 mg PO DAILY lamotrigine 25 mg tablet 25 mg PO DAILY pantoprazole 40 mg Tablet,Delayed Release (Dr/Ec) 40 mg PO DAILY buspirone 30 mg tablet 30 mg PO BID mirtazapine 7.5 mg tablet 7.5 mg PO QHS atomoxetine 40 mg capsule 40 mg PO DAILY celecoxib 200 mg capsule 200 mg PO DAILY clonidine HCl 0.1 mg tablet 0.1 mg PO TID lamotrigine 200 mg tablet 200 mg PO DAILY gabapentin 300 mg capsule 300 mg PO TID bupropion HCl 300 mg tablet extended release 24 hr 300 mg PO DAILY bupropion HCl 150 mg tablet extended release 24 hr 150 mg PO QPM Vraylar 1.5 mg capsule 1.5 mg PO DAILY Primary Care Provider: Jony Vásquez Referrals: Jony Vásquez MD [Primary Care Provider] - Print Language: [place]
[2024-03-18 17:45] LABS: Absolute Lymphocyte Count 3.09 X10^3/uL (0.83-4.51); Absolute Neutrophil Count 5.2 X10^3/uL (2.0-7.7); Basophil# 0.04 X10^3/uL; Basophil% 0.4 % (0-1); Eosinophil# 0.08 X10^3/uL; Eosinophils% 0.9 % (0-5); Hematocrit 37.9 % (37-47); Hemoglobin 12.8 g/dL (12.0-15.0); Lymphocyte # 3.09 X10^3/ul (0.83-4.51); Lymphocyte % 33.3 % (19-41); Mean Corp Hgb Conc 33.8 g/dL (32-36); Mean Corpuscular Hgb 30.1 pg (27.0-32.0); Mean Corpuscular Volume 89.2 fL (81-99); Mean Platelet Vol. 10.7 fl (6.2-12.0); Monocyte# 0.82 X10^3/uL; Monocyte% 8.8 % (0-10); NRBC Flagged by Analyzer 0 % (0-5); Neutrophil # 5.22 X10^3/uL (2.7-7.7); Neutrophil % 56.3 % (47-70); Platelet Count 246 K/mm3 (150-450); RBC Distribution Width CV 14.9 % (11.6-14.6); RBC Distribution Width SD 48.2 fl (35.1-43.9); Red Blood Count 4.25 M/mm3 (4.2-5.4); White Blood Count 9.3 K/mm3 (4.4-11.0)
[2024-03-18 18:02] LABS: ALB/GLOB Ratio 0.9 RATIO (0.9-2.4); AST(SGOT) 16 U/L (15-37); Alanine Aminotransfer ALT/SGPT 26 U/L (13-56); Albumin, Serum 3.5 g/dL (3.2-5.0); Alkaline Phosphatase 72 U/L (45-117); Anion Gap 6 (5-15); BUN 15 mg/dL (7-18); BUN/Creat Ratio 21.2 RATIO (10-20); Calcium,Total 8.9 mg/dL (8.5-10.1); Chloride 107 mmol/L (98-107); Creatinine, Serum 0.71 mg/dL (0.55-1.02); EST Glomerular Filtration Rate 100 mL/min (>60); Est Glom Filt Rate - Afr Amer 121 mL/min (>60); Estimated Creatinine Clearance 174.45 ml/min; Glucose 70 mg/dL (74-106); Potassium 3.6 mmol/L (3.5-5.1); Protein, Total 7.5 g/dL (6.4-8.2); Sodium Level 139 mmol/L (136-145)
[2024-03-18 18:27] LABS: Amphetamine Urine VISTA POSITIVE (<1000 ng/mL); Barbiturate Urine VISTA NEGATIVE (< 200 ng/mL); Benzodiazepine Urine VISTA NEGATIVE (< 200 ng/mL); Cocaine Urine VISTA NEGATIVE (< 300 ng/mL); Ecstacy Urine VISTA POSITIVE (< 500 ng/mL); Methadone Urine VISTA NEGATIVE (< 300 ng/mL); PCP Urine VISTA NEGATIVE (< 25 ng/mL); THC Urine VISTA NEGATIVE (< 50 ng/mL); Vista UDS pH Range 6
[2024-03-18 18:30] LABS: Internal QC Validated? YES +Cl - CLEAR BKGD; Pregnancy, Serum, hCG Quali. NEGATIVE Negative; Record Kit Lot#, Serum Preg. 869294
[2024-03-18 19:00] VITALS: BP 108/76; PULSE 98; RESP 20; O2SAT 97
--- NOTE | 2024-03-18 19:16 | HP.PCM.HOS_ITS ---
[facility] - General General Date of Admission: 03/18/24 Date of Service: 03/18/24 Chief Complaint: Wants Help with EtOH Detox. HPI Narrative ELOY LOW, is a 33 F with a past medical history of Chronic EtOH Abuse; with ~20 shots/day of whiskey, history of morbid obesity; with BMI of 54.3 this admission, hyperlipidemia, hypothyroidism, history of PTSD, history of bipolar disorder, history of COVID-19, history of recurrent loss and history of otitis externa who presents to [facility] stating she wants help with alcohol detoxification. The patient reports she had been sober for multiple years up until ~2 months ago when she started drinking again secondary to increasing stress and anxiety related to her mother having just been recently diagnosed with Parkinson's disease. She now wants to be able to help her mother and she needs to be sober to do so. She states she has went to alcohol withdrawal in the past and she has tried to detox herself at home 2 days ago and failed. She denies any withdrawal symptoms currently as her last drink was approximately 1 hour prior to arrival with a SHERRY of 75 mg/dL. Interestingly, she also denies illicit drug use but her urine drug screen returned positive for MDMA and amphetamines. She was then admitted to the general medical floor for ongoing care for stay that is expected to extend beyond 2 midnights. [facility] Medical History Substance abuse Hypercholesterolemia PTSD (post-traumatic stress disorder) Alcohol abuse Anxiety Hypothyroidism Bipolar disorder Depression Home Medications ?Medication ?Instructions ?Recorded ?Last Taken ?Type buspirone 15 mg tablet 15 mg PO TID mood 06/06/20 02/23/22 History famotidine 20 mg tablet 20 mg PO BID gerd 06/06/20 02/23/22 History ferrous sulfate 325 mg (65 mg 325 mg PO BID supplement 06/06/20 02/22/22 History iron) tablet hydroxyzine pamoate 50 mg capsule 50 mg PO Q8H PRN PRN Anxiety 06/06/20 06/05/20 History thyroid (pork) 60 mg tablet 75 mg PO DAILY thyroid 06/06/20 02/23/22 History trazodone 100 mg tablet 100 mg PO QHS sleep 06/06/20 02/21/22 History atorvastatin 20 mg tablet 20 mg PO DAILY cholesterol 02/23/22 02/22/22 History lamotrigine 25 mg tablet 25 mg PO DAILY mood 02/23/22 02/23/22 History pantoprazole 40 mg tablet,delayed 40 mg PO DAILY gerd 02/25/22 Unknown History release atomoxetine 40 mg capsule 40 mg PO DAILY 03/18/24 Unknown History bupropion HCl 150 mg 24 hr tablet, 150 mg PO DAILY DEPRESSION 03/18/24 Unknown History extended release bupropion HCl 300 mg 24 hr tablet, 300 mg PO DAILY 03/18/24 Unknown History extended release buspirone 30 mg tablet 30 mg PO BID 03/18/24 Unknown History cariprazine 1.5 mg capsule 1.5 mg PO DAILY 03/18/24 Unknown History (Vraylar) celecoxib 200 mg capsule 200 mg PO DAILY 03/18/24 Unknown History clonidine HCl 0.1 mg tablet 0.1 mg PO TID 03/18/24 Unknown History gabapentin 300 mg capsule 300 mg PO TID 03/18/24 Unknown History lamotrigine 200 mg tablet 200 mg PO DAILY 03/18/24 Unknown History mirtazapine 7.5 mg tablet 7.5 mg PO QHS 03/18/24 Unknown History Allergy/AdvReac Type Severity Reaction Status Date / Time divalproex sodium (From Allergy Rash Verified 03/18/24 15:42 Depakote) meloxicam Allergy Rash Verified 03/18/24 15:42 Family History Grandfather Heart disease Father Diabetes Mother Diabetes Surgical History Hx of tonsillectomy Social History Smoking Status: Former smoker ROS ROS Narrative Review of systems: Constitutional: Patient denies fever or chills. Eyes: Patient denies changes in vision or discharge from eyes. ENT: Patient denies runny nose, sore throat or ear pain. Resp: Patient denies shortness of breath or cough. CV: Patient denies chest pain, palpitations or heart racing. GI: Patient denies abdominal pain, nausea, vomiting, diarrhea or constipation. : Patient denies dysuria or hematuria. MSK: Patient denies myalgias or arthralgias. Skin: Patient denies abscess, rash or jaundice. Psych: Patient admits to increasing anxiety about her mother's declining health. She denies suicidal or homicidal ideation. Neuro: Patient denies headache, paresthesias or focal neurologic deficits. Allergy: Patient denies lip swelling, tongue swelling or urticaria. Hematology: Patient denies easy bleeding or easy bruisability. Endocrinology: Patient denies polyuria, polydipsia or polyphagia. 14 point review of systems otherwise negative except for positives noted above in HPI. Vital Signs Vital Signs Vital Signs: 03/18/24 15:39 03/18/24 17:39 Temperature 98 F Temperature Source Oral Pulse Rate 99 86 Respiratory Rate 18 13 Blood Pressure 144/96 H 125/69 H Blood Pressure Mean 112 87 Pulse Ox 98 97 Oxygen Delivery Method Room Air Room Air Weight Weight: 347 lb Body Mass Index (BMI) 54.3 Physical Exam Const alert, oriented x3 and no apparent distress Constitutional Narrative: Patient is morbidly obese. General Appearance: cooperative HEENT normocephalic, head/scalp atraumatic, hearing grossly normal bilaterally and moist oral mucous membranes Eyes PERRL and EOMs intact bilaterally Neck no lymphadenopathy and supple Resp normal respiratory effort, no retractions, no use of accessory muscles and clear to auscultation bilaterally Cardio regular rate and regular rhythm GI normal to inspection, nondistended, normoactive bowel sounds, soft to palpation, non-tender and non-distended GI Narrative: Morbidly obese. Extremity normal to inspection, full ROM and no clubbing, cyanosis or edema Skin Skin Narrative: Patient has no evidence of rash, wounds or jaundice. Neuro oriented x3, CN's II-XII intact bilaterally, moves all extremities and no focal motor deficits Sensorium / Orientation: awake, alert, oriented to person, oriented to place and oriented to time Speech: speech normal Psych affect normal Results Medical Records Data Attestation: I reviewed the patient's medical records Lab / Micro Data Attestation: I reviewed the patient's lab results. 03/18/24 16:38 03/18/24 16:38 Labs: Laboratory Results - last 24 hr 03/18/24 16:38: WBC 9.3, RBC 4.25, Hgb 12.8, Hct 37.9, MCV 89.2, MCH 30.1, MCHC 33.8, RDW Std Deviation 48.2 H, RDW Coeff of Stacey 14.9 H, Plt Count 246, MPV 10.7, Immature Gran % (Auto) 0.300, Neut % (Auto) 56.3, Lymph % (Auto) 33.3, Burt % (Auto) 8.8, Eos % (Auto) 0.9, Baso % (Auto) 0.4, Absolute Neuts (auto) 5.2, Absolute Lymphs (auto) 3.09, Nucleated RBC % 0, Sodium 139, Potassium 3.6, Chloride 107, Carbon Dioxide 26.0, Anion Gap 6, BUN 15, Creatinine 0.71, Estim Creat Clear Calc 174.45, Est GFR (MDRD) Af Amer 121, Est GFR (MDRD) Non-Af 100, BUN/Creatinine Ratio 21.2 H, Glucose 70 L, Calcium 8.9, Total Bilirubin 0.30, AST 16, ALT 26, Alkaline Phosphatase 72, Total Protein 7.5, Albumin 3.5, Globulin 4.0, Albumin/Globulin Ratio 0.9, Ethyl Alcohol 75.0 03/18/24 17:49: Serum , Qual NEGATIVE, Urine Opiates Screen NEGATIVE, Urine Methadone Screen NEGATIVE, Ur Barbiturates Screen NEGATIVE, Ur Phencyclidine Scrn NEGATIVE, Ur Amphetamines Screen POSITIVE H, MDMA (Ecstasy) Screen POSITIVE H, U Benzodiazepines Scrn NEGATIVE, Urine Cocaine Screen NEGATIVE, U Cannabinoids Screen NEGATIVE, Ur Drug Screen Comment Assessment & Plan Assessment/Plan (1) Chronic alcohol abuse: (2) Amphetamine abuse: (3) Morbid obesity with BMI of 50.0-59.9, adult: PLAN: Plan 1. Chronic alcohol abuse with impending alcohol withdrawal - Admit to general medical floor under EtOH detoxification protocol primarily consisting of Phenobarbital taper. EtOH Cessation was strongly encouraged. 2. Illicit drug use with urine drug screen positive for MDMA and amphetamines complicating #1 - Patient denies using amphetamines and MDMA. Nevertheless, she was discouraged from illicit drug use. 3. Morbid obesity; with BMI of 54.3 this admission compounding #1 & #2 - Weight loss will be recommended. This complicates her case and may hamper her recovery. 4. Hyperlipidemia - Resume statin as before. 5. Hypothyroidism - Continue Thyroid hormone replacement as previous and check TSH. 6. History of PTSD - Noted. 7. History of bipolar disorder - Noted. 8. History of COVID-19 - Noted. 9. History of recurrent loss - Noted. 10. History of otitis externa - Noted. 11. History of tonsillectomy - Noted for the sake of completeness. 12. DVT prophylaxis - Lovenox 40 mg SQ twice daily. Total time: Approximately 55 minutes. Charges/Coding Visit Charges Inpatient E&M: 34463 Init Hosp L2
[2024-03-18 19:38] VITALS: BP 123/89; PULSE 92; RESP 18; TEMP 36.9; O2SAT 97
--- OUTSIDE RECORDS SUMMARY | 2024-03-18 19:42 | XMS RPT_ITS | CCD ---
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 Name Role Phone Michelle Fam Unavailable Unavailable SarwatMichelle Unavailable Unavailable Jony Martell Unavailable Unavailable JASBIR FREEMAN, JONY Primary Care Physician Jony Martell MD Primary Care Provider Jony Martell MD Primary Care Provider Jony Martell MD Primary Care Provider JONY MARTELL MD Referring Unavailable JONY MARTELL MD Consulting Unavailable TAMMIE KRISHNAMURTHY Attending Unavailable TAMMIE KRISHNAMURTHY Primary Care [...] Nicotine Drug Allergy 06-29-2018 Unknown, Rash [facility] NSAIDs (1 source) meloxicam Drug Allergy 10-16-2015 Itching [facility] Valproate (1 source) Valproate Drug Allergy 11-19-2014 Rash [facility] (20 sources) meloxicam; Translations: [meloxicam] Drug All[facility]) nicotine; Translations: [facility]Nicotine Patch] [facility]) valproate; Translations: [Depakote] [facility] (20 sources) Valproate; Translations: [DIVALPROEX] Drug Allergy 11-19-2014 [facility] (16 sources) Nicotine; Translations: [NICOTINE] Drug Allergy 06-29-2018 Unknown, [facility] Medications Current Medications Medication Drug Class(es) [...] on above: Take 1 capsule by mo [facility] once daily. 24 hr buPROPion hydrochloride [...] Comment on above: Take 1 tablet by [facility] three times daily. celecoxib 200 mg oral capsule (13 sources) Nonsteroidal Anti-inflammatory Drug Start: 024 take 1 capsule by mouth once daily celecoxib (CELEBREX) 200 mg capsule Indications: Polyarthralgia Take 1 capsule by mouth once daily. 30 capsule 5 09/06/2023 Active Comment on above: Take 1 capsule by mo [facility] once daily. cholecalciferol 0.05 mg oral [...] Comment on above: [facility] citalopram 40 mg oral tablet [...] Comment on above: [facility] Take 3 tablets by mo ut daily at bedtime. Take 8 tablets by mo [facility] daily at bedtime. lisdexamfetamine dimesylate 50 [...] Mirtazapine (REMERON) 7.5 mg tablet 03/10/2024 Active [facility] [place] (1 source) Start: 05-31-2015 [facility] [place] 0 Refill(s) Start Date: 05/31/15 [...] stomach, 1/2 hr before meal. polymyxin b 11749 unt/ml / trimethoprim 1 mg/ml ophthalmic solution [...] 1 tab x3 days with food. thyroid (retirement) 60 mg oral tablet (20 sources) Start: [...] 30 tablet 5 08/16/2022 Active Start: 10-17-2020 [place] Thyroid 60 mg oral tablet Dose : [...] Drug Class(es) Dates Sig (Normalized) Sig (Original) [id number] 200 actuat albuterol 0.09 mg/actuat metered dose [...] [Morbid obesity with BMI of 50.0-59.9, adult ([facility])] Onset: 4 Chronic Other nutritional; endocrine; and metabolic disorders (1 source) Body mass index (BMI) 50.0-59.9, adult; Translations: [Morbid obesity with BMI of 50.0-59.9, adult ([facility])] Onset: Chronic Other screening for suspected conditions [...] Test Name Value Interpretation Reference Range Facility [facility] 03-14-2024 [facility] Office Visit (TINO ) SWATHI WAHL ([id number]) 1990 F Date Time Provider Department 03/14/24 9:40 AM ALBERTA EDWARD During your visit today, we recorded the following information about you: Pulse Blood pressure Weight 66/minute 132/74 156 kg Alberta Edward MD 03/14/2024 10:34 AM Signed [facility] Date of Service: 03/14/2024 Patient: Swathi Wahl Medical Record: [id number] Primary Care Physician: Jony Martell MD Referring Provider: Ursula Be [address] [place] [address] Last Rheumatology visit: None at [facility] Chief complaint: New Patient Consultation requested by [...] to have scalp psoriasis, 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 08/2023 Sed [...] Tobacco Us (more content not included)... Normal [facility] CNOVon 03-13-2024 CNOV Office Visit (OBGYWM ) SWATHI WAHL ([id number]) 1990 F Date Time Provider Department 03/13/24 [...] - D - 5-6pm eats large portions- venezuelan meals- tacos, burritos, meatloaf, lasagna, roast, green beans S - typically Fluids: milk (whole milk)- 16oz glass 3x day, 16oz water bottle 4-7 per day Bedtime -7-9pm Quality of diet: 24hr recall suggests in between diet. Characterization of diet:Unstructured, excessive cravings, evening snacking, increased consumption of sugar sweetened beverages (milk), and skip meals. 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 anti-obesity medications Phentermine. Diet and exercise Exercise: Regular exercise: walking Strength/resistance exercise:no Barriers to regular exercise? yes - joint pain and skin pain Work-related activity:Active. Gym Membership: no Activity Tracker: no average steps per day N/A OCCUPATION [employer] Current Contraception: none Obesity ROS/ FHx GEN: Fatigue:yes CV: h/o palpitations/cardiac arrhythmia, Chest pain: no HTN: YES (today- no dx) PULM: Asthma:no GI: GERD:yes ; Gallstones:no ; Fatty liver disease:no Pancreatitis: no MSK: Joint Pain (more content not included)... Normal [facility] CNOVon 03-08-2024 CNOV Office Visit (UCWSTR ) SWATHI WAHL ([id number]) 1990 F Date Time Provider Department 03/08/24 9:00 AM MICHELLE ROBERTS RUST During your visit today, we recorded the following information about you: Temperature Pulse Respiration Blood pressure 97.4 degrees 100/minute 21/minute 140/86 Weight 156.8 kg Michelle Roberts APRN.JACQUARD LOOM CARD CHANGER 03/08/2024 9:07 AM Signed This note was created using NMRKTriter. Subjective Swathi M Workman is a 33 [...] Date Reviewed: 03/08/2024 Reviewed by: Michelle Roberts APRN.JACQUARD LOOM CARD CHANGER - Fully Assessed Reason for Visit: Diarrhea [...] Back a (more content not included)... Normal [facility] EMERGENCY REPORTon EMERGENCY REPORT [facility] EMERGENCY ROOM REPORT NAME ACCOUNT SEX AGE ADMIT DISCHARGE PT MED. RECORD# NUMBER DATE DATE TYPE WORKMAN, [id number] Cade 33 12/13/23 12/14/23 3 SWATHI Rivers [id number] ROOM: [facility] DATE OF : 1990 DICTATING PHYSICIAN: Amara Alexandra ADDENDUM HISTORY OF PRESENT ILLNESS: This is a 33-year-old female who came to the Emergency Room with suicidal ideation. EMERGENCY DEPARTMENT COURSE AND TREATMENT: She was seen initially by Dr. Krishnamurthy and medically cleared. We had been awaiting a counseling session, which occurred somewhere after midnight, and a bed was arranged at [facility] in [place] for her to be transferred to that [...] The counselor has arranged a bed at [facility]. The patient has been comfortable here. She is a little anxious, for which she was given 1 mg of Ativan with calming effects noted. Her potassium was a little bit low at 3, for which she is being given a potassium pill. DIAGNOSIS: Suicidal ideation, depression and anxiety. PLAN/DISPOSITION: She will be transported by ambulance to [facility]. Dictated By: Amara Alexandra DO 12/14/23 03:42 JOB #: [id number] Transcribed By: sandra 12/15/23 09:34 Electronically signed by: E-SIGN AMARA ALEXANDRA DO 12/15/23 18:55 Page 1 of 1 SWATHI WAHL Emergency Room Report Normal [facility] ALCOHOL-BLOOD MEDICALon 11-27 Ethanol [Mass/Vol] 87 mg/dL High 0 - 50 [facility] Comment on above: Performed By: #### 2 96199 #### [facility],[address] [place] [address] 84607 CBC + DIFFon 12-13-2023 Baso # 0.03 x10EE3/UL Normal 0.00 - 0.10 [facility] Comment on above: Performed By: #### 2 35831 #### [facility],[address] [place], [place] [address] Basophils/100 WBC (Bld) 0.3 % Normal 0.0 - 2.0 [facility] Comment on above: Performed By: #### 2 40957 #### [facility],[address] [place] [address] 45829 CBC + DIFF Normal [facility] Comment on above: Result Comment: CBC- COMPLETE BLOOD COUNT Performed By: #### 2 33034 #### [facility],[address] [place] [address] EO 4.0 % Normal 0.0 - 7.0 [facility] Comment on above: Performed By: #### 2 94056 #### [facility],[address] [place] [address] EO # 0.11 x10EE3/UL Normal 0.00 - 0.50 [facility] Comment on above: Performed By: #### 2 86783 #### [facility],[address] [place], [place] [address] Eosinophils/100 WBC (Bld) 1.2 % Normal 0.0 - 7.0 [facility] Comment on above: Performed By: #### 2 78595 #### [facility],[address] [place] [address] Erythrocyte distribution width (RBC) [Ratio] 13.8 % Normal 12.0 - 15.6 [facility] Comment on above: Performed By: #### 2 37211 #### [facility],[address] [place], [place] [address] Hematocrit (Bld) [Volume fraction] 35.5 % Normal 34.0 - 46.0 [facility] Comment on above: Performed By: #### 2 83654 #### [facility],[address] [place], [place] [address] Hemoglobin (Bld) [Mass/Vol] 11.9 g/dL Low 12.0 - 16.0 [facility] Comment on above: Performed By: #### 2 73331 #### [facility],[address] [place] [address] 68488 Lymph # 2.47 x10EE3/UL Normal 0.80 - 2.80 [facility] Comment on above: Performed By: #### 2 85106 #### [facility],[address] [place] [address] 05929 Lymphocytes/100 WBC (Bld) 27.5 % Normal 20.0 - 45.0 [facility] Comment on above: Performed By: #### 2 50275 #### [facility],[address] [place] [address] 71371 Lymphocytes/100 WBC (Bld) 33 % Normal 20 - 45 [facility] Comment on above: Performed By: #### 2 09148 #### [facility],[address] [place] [address] 66530 MANUAL DIFF SEE BELOW Normal [facility] Comment on above: Performed By: #### 2 91434 #### [facility],[address] [place] [address] 19749 MCH (RBC) [Entitic mass] 31 pg Normal 27 - 33 [facility] Comment on above: Performed By: #### 2 02808 #### [facility],[address] [place] [address] 74825 MCHC 33 X10 3 Normal 32 - 36 [facility] Comment on above: Performed By: #### 2 62162 #### [facility],[address] [place] [address] 02558 MCV (RBC) [Entitic vol] 91 fL Normal 80 - 99 [facility] Comment on above: Performed By: #### 2 76779 #### [facility],[address] [place] [address] 96232 Nome # 0.39 x10EE3/UL Normal 0.20 - 1.00 [facility] Comment on above: Performed By: #### 2 21268 #### [facility],[address] [place] [address] 30425 MONOS 3 % Normal 0 - 10 [facility] Comment on above: Performed By: #### 2 27723 #### [facility],[address] [place] [address] 91907 MONOS % 4.3 % Normal 0.0 - 10.0 [facility] Comment on above: Performed By: #### 2 36417 #### [facility],[address] [place] [address] 47421 Morphology Mazin (Bld) [Interp] N/A Normal [facility] Comment on above: Performed By: #### 2 71353 #### [facility],[address] [place] [address] 96874 Neut # 6.00 x10EE3/UL Normal 1.50 - 7.10 [facility] Comment on above: Performed By: #### 2 62647 #### [facility],[address] [place] [address] 00380 Neutrophils/100 WBC (Bld) 66.7 % Normal 46.0 - 76.0 [facility] Comment on above: Performed By: #### 2 89189 #### [facility],[address] [place] [address] 85995 PLATELET 227 x10EE3/UL Normal 150 - 450 [facility] Comment on above: Performed By: #### 2 70890 #### [facility],[address] [place] [address] 44137 Platelet mean volume (Bld) [Entitic vol] 8.2 fL Normal 6.6 - 10.5 [facility] Comment on above: Result Comment: AUTO MATED DIFFERENTIAL Performed By: #### 2 39964 #### [facility],[address] [place] [address] 36813 RBC 3.89 x 10EE6/UL Low 4.10 - 5.30 [facility] Comment on above: Performed By: #### 2 58467 #### [facility],[address] [place] [address] 14529 SEGS 60 % Normal 46 - 76 [facility] Comment on above: Performed By: #### 2 87338 #### [facility],[address] [place] [address] 91704 WBC 9.0 x 10EE3/UL Normal 4.5 - 10.8 [facility] Comment on above: Performed By: #### 2 35547 #### [facility],[address] [place] [address] 27492 CMP with eGFRon 12-13-2023 AGE 33 years Normal [facility] Comment on above: Performed By: #### 2 09218 #### [facility],[address] [place] [address] 99364 Albumin [Mass/Vol] 3.3 g/dL Low 3.4 - 5.0 [facility] Comment on above: Performed By: #### 2 25135 #### [facility],[address] [place] [address] 72339 Albumin/Globulin [Mass ratio] 0.9 {ratio} Normal 0.9 - 1.6 [facility] Comment on above: Performed By: #### 2 18480 #### [facility],[address] [place] [address] 34263 ALK PHOS 72 U/L Normal 46 - 116 [facility] Comment on above: Performed By: #### 2 98214 #### [facility],[address] [place] [address] 34252 ALT [Catalytic activity/Vol] 28 U/L Normal 16 - 63 [facility] Comment on above: Performed By: #### 2 96149 #### [facility],[address] [place] [address] 78612 Anion gap [Moles/Vol] 15 mmol/L Normal 10 - 20 [facility] Comment on above: Performed By: #### 2 76971 #### [facility],[address] [place] [address] 34709 AST [Catalytic activity/Vol] 19 U/L Normal 13 - 39 [facility] Comment on above: Performed By: #### 2 53777 #### [facility],[address] [place] [address] 43656 B/C RATIO 15 ratio Normal 0 - 30 [facility] Comment on above: Performed By: #### 2 28388 #### [facility],[address] [place] [address] 99687 Bilirubin [Mass/Vol] 0.3 mg/dL Normal 0.2 - 1.0 [facility] Comment on above: Performed By: #### 2 06698 #### [facility],[address] [place] [address] 36862 Calcium [Mass/Vol] 8.4 mg/dL Low 8.5 - 10.1 [facility] Comment on above: Performed By: #### 2 97041 #### [facility],[address] [place] [address] 67211 Chloride [Moles/Vol] 105 mmol/L Normal 98 - 107 [facility] Comment on above: Performed By: #### 2 12286 #### [facility],[address] [place] [address] 84025 CMP with eGFR Normal [facility] Comment on above: Result Comment: COMP REHENSIVE METABOLIC PANEL Performed By: #### 2 10755 #### [facility],[address] [place] [address] 39287 CO2 [Moles/Vol] 25.3 mmol/L Normal 21.0 - 32.0 [facility] Comment on above: Performed By: #### 2 46484 #### [facility],[address] [place] [address] 93318 Creatinine [Mass/Vol] 0.92 mg/dL Normal 0.55 - 1.02 [facility] Comment on above: Performed By: #### 2 22910 #### [facility],[address] [place] [address] 12564 GFR/1.73 sq M.predicted among non-blacks MDRD (S/P/Bld) [Vol rate/Area] mL/min/{1.73_m2} Normal 60 - 999 [facility] Comment on above: Performed By: #### 2 25984 #### [facility],[address] [place] [address] 92717 Result Comment: ACCO RDING TO THE NATIONAL KIDNEY DISEASE EDUCATION PROGRAM(NKDE), A NORMAL eGFR IS A VALUE GREATER THAN OR EQUAL TO 60 ML/MIN/1.73 SQ METERS. CHRONIC KIDNEY DISEASE: <60mL/MIN/1.73 SQ METERS KIDNEY FAILURE: <15mL/MIN/1.73 SQ METERS THIS TEST SHOULD ONLY BE USED FOR PATIENTS 18 YEARS OF AGE AND OLDER. Globulin (S) [Mass/Vol] 3.8 g/dL Normal 1.5 - 3.8 [facility] Comment on above: Performed By: #### 2 88324 #### [facility],[address] [place] [address] 92125 Glucose [Mass/Vol] 106 mg/dL Normal 74 - 106 [facility] Comment on above: Performed By: #### 2 65931 #### [facility],[address] [place] [address] 03277 Potassium [Moles/Vol] 3.0 mmol/L Low 3.5 - 5.1 [facility] Comment on above: Performed By: #### 2 44218 #### [facility],[address] [place] [address] 25722 Protein [Mass/Vol] 7.1 g/dL Normal 6.4 - 8.2 [facility] Comment on above: Performed By: #### 2 43363 #### [facility],[address] [place] [address] 30477 Sodium [Moles/Vol] 142 mmol/L Normal 136 - 145 [facility] Comment on above: Performed By: #### 2 80425 #### [facility],[address] [place] [address] 38197 Urea nitrogen [Mass/Vol] 14 mg/dL Normal 7 - 18 [facility] Comment on above: Performed By: #### 2 11699 #### [facility],[address] [place] [address] 14948 CORONAVIRUS (SARS) ANTIGEN T ESTon 12-13-2023 EXTERNAL QC DONE? YES Normal [facility] Comment on above: Performed By: #### 2 34063 #### [facility],[address] [place] [address] 30952 INTERNAL CONTROL PASS Normal [facility] Comment on above: Performed By: #### 2 87902 #### [facility],[address] [place] [address] 24505 SARS ANTIGEN Negative Normal NORMAL: NEGATIVE [facility] Comment on above: Performed By: #### 2 07697 #### [facility],[address] [place] [address] 07537 SEND TO ? NO Normal [facility] Comment on above: Result Comment: SARS -CoV-2 THIS TEST IS BEING USED UNDER THE FDA EUA PROCEDURE. THIS ASSAY HAS BEEN VALIDATED AT [facility] FOR USE WITH NASAL AND NASOPHARYNGEAL [...] PUBLIC HEALTH AUTHORITIES. Performed By: #### 2 33321 #### [facility],[address] [place] [address] DRUG SCREEN URINE MEDICon AMPHETAMINES Negative [facility] Comment on above: Performed By: #### 2 83421 #### [facility],[address] [place] [address] B-DIAZEPINES Negative [facility] Comment on above: Performed By: #### 2 04630 #### [facility],[address] [place], [place] [address] BARBITURATES Negative [facility] Comment on above: Performed By: #### 2 04035 #### [facility],[address] [place] [address] COCAINE Negative [facility] Comment on above: Performed By: #### 2 57812 #### [facility],[address] [place] [address] DRUG SCREEN URINE MEDIC [facility] Comment on above: Result Comment: DRUG SCREEN - URINE Performed By: #### 2 93280 #### [facility],[address] [place] [address] 79664 METHADONE Negative [facility] Comment on above: Performed By: #### 2 41583 #### [facility],[address] [place] [address] 58583 OPIATES Negative Normal [facility] Comment on above: Performed By: #### 2 65229 #### [facility],[address] [place] [address] 39621 PCP Negative Normal [facility] Comment on above: Performed By: #### 2 98097 #### [facility],[address] [place], [place] [address] THC Negative Normal [facility] Comment on above: Result Comment: EULALIA ENTS RECEIVING PROTON PUMP INHIBITORS MAY DEMONSTRATE FALSE POSITIVE THC/CANNABINOID RESULTS. AN ALTERNATIVE CONFIRMATORY METHOD SHOULD BE CONSIDERED TO VERIFY POSITIVE RESULTS. Performed By: #### 2 71130 #### [facility],[address] [place], [place] [address] URINEon 12-13-2023 Beta HCG ( test) Ql (U) Negative Normal NEGATIVE [facility] Comment on above: Performed By: #### 2 88866 #### [facility],[address] [place] [address] EXTERNAL QC DONE? YES Normal [facility] Comment on above: Performed By: #### 2 83199 #### [facility],[address] [place], [place] [address] INTERNAL QC PASS Normal [facility] Comment on above: Performed By: #### 2 58560 #### [facility],[address] [place] [address] 32525 URINALYSISon 12-13-2023 Bilirubin Ql (U) Negative Normal NORMAL: NEGATIVE [facility] Comment on above: Performed By: #### 2 42529 #### [facility],[address] [place], [place] [address] Clarity (U) clear Normal NORMAL: CLEAR [facility] Comment on above: Performed By: #### 2 75685 #### [facility],[address] [place], [place] [address] Color (U) yellow Normal NORMAL: YELLOW [facility] Comment on above: Performed By: #### 2 00774 #### [facility],[address] [place] [address] 89312 Glucose Ql (U) NORM Normal NORMAL: NORMAL [facility] Comment on above: Performed By: #### 2 64044 #### [facility],[address] [place] [address] 50804 Hemoglobin Ql (U) Negative Normal NORMAL: NEGATIVE [facility] Comment on above: Performed By: #### 2 65149 #### [facility],[address] [place] [address] 24175 Ketone Negative Normal NORMAL: NEGATIVE [facility] Comment on above: Performed By: #### 2 45439 #### [facility],[address] [place] [address] 67191 Leukocytes Negative Normal NORMAL: NEGATIVE [facility] Comment on above: Performed By: #### 2 20865 #### [facility],[address] [place] [address] 21793 Nitrite Ql (U) Negative Normal NORMAL: NEGATIVE [facility] Comment on above: Performed By: #### 2 96413 #### [facility],[address] [place] [address] 66571 pH (U) 5 [pH] Normal NORMAL: 5.0-8.0 [facility] Comment on above: Performed By: #### 2 15837 #### [facility],[address] [place] [address] 73864 Protein Ql (U) 15 Abnormal NORMAL: NEGATIVE [facility] Comment on above: Performed By: #### 2 54861 #### [facility],[address] [place] [address] 67240 Sp [place] 1.025 Normal NORMAL: 1.010-1.030 [facility] Comment on above: Performed By: #### 2 15942 #### [facility],[address] [place] [address] Specimen Type UNSPECIFIED Normal [facility] Comment on above: Performed By: #### 2 60193 #### [facility],[address] [place] [address] Urinalysis dipstick W Reflex Microscopic panel (U) NOT INDICATED Normal [facility] Comment on above: Performed By: #### 2 04311 #### [facility],[address] [place] [address] Urobilinog NORM Normal NORMAL: NORMAL [facility] Comment on above: Performed By: #### 2 88573 #### [facility],[address] [place], [place] [id number] CNPNon 12-06-2023 JUDIT Telephone (KORIN) SWATHI WAHL ([id number]) 1990 F Date Time Provider Department 12/06/23 URSULA BE During your visit today, we recorded the following information about you: Good Pacheco LPN 12/06/2023 8:22 AM Signed [facility] message regarding Wegovy. Have we received word from insurance yet? Please advise. ANALIA Hedrick Elizabeth, MA 12/06/2023 8:38 AM Signed Previous message from 11/18 not sent to [facility] [facility]. Medicaid does not cover any weight loss medication. Patient was notified by phone and through mychart not covered. MIRACLE De Los Santos Christy, APRN.CNP 12/06/2023 8:42 AM Signed Noted. Ursula Be APRN.JACQUARD LOOM CARD CHANGER Allergies As of Date: 12/06/2023 Noted Allergy Reaction DEPAKOTE (DIVALPROEX) 11/19/2014 2 - Rash MELOXICAM 10/16/2015 9 - Itching NICOTINE 06/29/2018 16 - Unknown 2 - Rash Date Reviewed: 11/22/2023 Reviewed by: Sheela Thornton MA - Fully Assessed Reason for Visit: Insurance Authorization [[id number]] Cmt: Wegovy Prescriptions as of 12/06/2023 - [...] Encounter Status:Closed by URSULA BE on 12/06/23 [facility] ALEXISOVon 11-22-2023 CNOV Office Visit (OBGYWM ) SWATHI WAHL ([id number]) 1990 F Date Time Provider Department 11/22/23 10:00 AM MANUELA PEARCE During your visit today, we recorded the following information about you: Blood pressure Weight Height Last Period 120/72 152.9 kg 1.69 m 10/31/23 Manuela Pearce APRN.CNM 11/22/2023 11:01 AM Signed Sharepoint Engineer offered: Patient declines. Swathi is a 33 year old who presents for an annual gynecologic exam without complaints. Working with primary care for weight loss and weight management. 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 Was in halfway for 6 months 10 days after delivery. [...] L1 SAB6 IAB0 Ectopic0 Multiple0 Live Births1 Carport Erector History LMP: 10/31/2023 (Approximate), Having periods Age at Menarche: Age at First : Age at Menopause: Carport Erector History Comments: Sexual Activity: Not Currently; Male; [...] external genitalia normal, normal Bartholin's glands, urethra, [place]'s glands, no vulvar lesions, no cervical lesions, [...] ICD10: E66. (more content not included)... Normal [facility] HIGH RISK HUMAN PAPILLOMA MENDEZ (HPV), PCR FOR DETECTION AND GENOTYPINGon 11-22-2023 HPV 16 Ag Ql (Unsp spec) Not detected Normal Not detected [facility] Comment on above: Order Comment: Speci men Type: FLUID SPECIMENOrdering Facility: [facility] Address: [address] [place] [address] Performed By: #### L [id number] ####[facility] [id number] [address] LABCLIA [id number] [place] [address] [place]#### HPVHRT ####[facility] LABCLIA [id number] [place] [address] [place] HPV 18 Ag Ql (Unsp spec) Not detected Normal Not detected [facility] Comment on above: Order Comment: Speci men Type: FLUID SPECIMENOrdering Facility: [facility] Address: [address] [place] [address] Performed By: #### L [id number] ####[facility]ORY[facility] [id number] [address] STATES [facility] LABCLIA [id number] [place] [address] [place]#### HPVHRT ####[facility] LABCLIA [id number] [place] [address] [place] HPV 31+33+35+39+45+51+52 +56+58+59+66+68 DNA ESHA+probe Ql (Cvx) Not detected Normal Not detected [facility] Comment on above: Order Comment: Speci men Type: FLUID SPECIMENOrdering Facility: [facility] Address: [address] [place] [address] Result Comment: High Risk HPV Other Type includes HPV types 31, 33, 35, 39, 45, 51, 52, 56, 58, 59, 66 and 68. Performed By: #### L [id number] ####[facility] [id number] [address] LABCLIA [id number] [place] [address] [place]#### HPVHRT ####[facility] LABCLIA [id number] [place] [address] [place] PAP TESTon 11-22-2023 ADEQUACY Satisfactory for interpretation. Normal [facility] Comment on above: Order Comment: Speci men Type: FLUID SPECIMENOrdering Facility: [facility] Address: [address] [place] [address] Performed By: #### L [id number] ####[facility]CLIA [id number] [address] LABCLIA [id number] [place] [address] [place]#### HPVHRT ####[facility] LABCLIA [id number] [address] STATES [place] CASE REPORT Normal [facility] Comment on above: Order Comment: Speci men Type: FLUID SPECIMENOrdering Facility: [facility] Address: [address] [place] [address] Result Comment: Gyne cologic Cytology Report Case: [id number] Authorizing Provider: Manuela Pearce APRN.CNM Collected: 11/22/2023 10:59 AM Ordering Location: OB/Gynecology Received: 11/22/2023 12:11 PM First Screen: Oliver, [place], CT, ASCP Specimen: Pap Test, ThinPrep, Cervix Performed By: #### L [id number] ####[facility]CLIA [id number] [address] LABCLIA [id number] [place] [address] [place]#### HPVHRT ####[facility] LABCLIA [id number] [place] [address] [place] CLINICAL HISTORY, CYTOLOGY, EQUIPMENT MAINTENANCE SUPERINTENDENT Routine Exam Normal [facility] Comment on above: Order Comment: Speci men Type: FLUID SPECIMENOrdering Facility: [facility] Address: [address] [place] [address] Performed By: #### L [id number] ####[facility]ORATORYCLIA [id number] [place] [address] [place] [facility] LAB[facility] [id number] [place] [address] [place]#### HPVHRT ####[facility] LABCLIA [id number] [place] [address] [place] FINAL PERFORMING LAB Normal [facility] Comment on above: Order Comment: Speci men Type: FLUID SPECIMENOrdering Facility: [facility] Address: [address] [id number] Result Comment: Tech nical component, tailing machine operator screening performed at [facility], [address] [id number] CLIA# [id number] Diagnostic interpretation performed at [facility], [address] [id number] CLIA# [id number] Accountant Supervisor: Sri Fields M.D. Performed By: #### L [id number] ####[facility] LABORATORYCLIA [id number] [place] [id number] [place] [facility] LABCLIA [id number] [place] [address] [place]#### HPVHRT ####[facility] LABCLIA [id number] [place] [address] [place] HPV REFLEX Yes HPV Normal [facility] Comment on above: Order Comment: Speci men Type: FLUID SPECIMENOrdering Facility: [facility] Address: [address] [place] [address] Performed By: #### L [id number] ####[facility]ORYCLIA [id number] [place] [id number] [place] [facility] LABCLIA [id number] [place] [address] [place]#### HPVHRT ####[facility] LABCLIA [id number] [place] [address] [place] INTERPRETATION, CYTOLOGY, EQUIPMENT MAINTENANCE SUPERINTENDENT Normal [facility] Comment on above: Order Comment: Speci men Type: FLUID SPECIMENOrdering Facility: [facility] Address: [address] [place] [address] Result Comment: Nega tive for intraepithelial lesion or malignancy. Performed By: #### L [id number] ####[facility]ORYCLIA [id number] [place] [address] [place] [facility] LABCLIA [id number] [place] [address] [place]#### HPVHRT ####[facility] LABCLIA [id number] [place] [address] [place] LMP 10/31/2023 Normal [facility] Comment on above: Order Comment: Speci men Type: FLUID SPECIMENOrdering Facility: [facility] Address: [address] [place], [place] [address] Performed By: #### L [id number] ####[facility]ORYCLIA [id number] [place] [id number] [place] [facility] LABCLIA [id number] [place] [address] [place]#### HPVHRT ####[facility] LABCLIA [id number] [address] PAP DISCLAIMER COMMENT The Pap Smear is a screening test for cervical cancer. False negative results occur with all screening tests, emphasizing the need for rescreening at recommended intervals, and clinical correlation. Normal [facility] Comment on above: Order Comment: Speci men Type: FLUID SPECIMENOrdering Facility: [facility] Address: [address] [place] [address] Performed By: #### L [id number] ####[facility]ATORYCLIA [id number] [address] OF [facility] LABCLIA [id number] [address] OF POOL#### HPVHRT ####[facility] LABCLIA [id number] [address] OF [facility] CNOVon 11-15-2023 CNOV [facility] SWATHI WAHL ([id number]) 1990 F Date Time Provider Department 11/15/23 10:00 AM [facility] During your visit today, we recorded the [...] ML SUBCUTANEOUS PEN INJECTOR - CONSULT TO [facility] (more content not included)... Normal [facility] Cristo 09-26-2023 MICHELLEN Telephone (FAMPWS) SWATHI WAHL ([id number]) 1990 F Date Time Provider Department 09/26/23 [...] Status:Closed by GÉNESIS MEZA on 09/27/23 Normal [facility] 25(OH)D3 SerPl-mCncon 2023 25-hydroxyvitamin D3 [Mass/Vol] 30.7 ng/mL Low 31.0-80.0 [facility] Comment on above: Order Comment: Speci men Type: BLOOD SPECIMENOrdering Facility: [facility] Address: [address] [place] [address] Performed By: #### 1 989-3 ####[facility] LABCLIA [id number] [place] [address] [place] CBC W Auto Differential pane l (Bld)on 09-21-2023 Basophils (Bld) [#/Vol] 0.03 10*3/uL Normal <0.11 [facility] Comment on above: Order Comment: Speci men Type: BLOOD SPECIMENOrdering Facility: [facility] Address: [address] [place] [address] Performed By: #### 4 537-7, 49760-2 ####[facility] LABCLIA [id number] [place] [address] [place] Basophils/100 WBC (Bld) 0.4 % Normal [facility] Comment on above: Order Comment: Speci men Type: BLOOD SPECIMENOrdering Facility: [facility] Address: [address] [place] [address] Performed By: #### 4 537-7, 59528-4 ####[facility] LABCLIA [id number] [place] [address] [place] Differential cell count method Nom (Bld) Auto Normal [facility] Comment on above: Order Comment: Speci men Type: BLOOD SPECIMENOrdering Facility: [facility] Address: [address] [place] [address] Performed By: #### 4 537-7, 55720-2 ####[facility] LABCLIA [id number] [place] [address] [place] Eosinophils (Bld) [#/Vol] 0.08 10*3/uL Normal <0.46 [facility] Comment on above: Order Comment: Speci men Type: BLOOD SPECIMENOrdering Facility: [facility] Address: [address] [place] [address] Performed By: #### 4 537-7, 67831-7 ####[facility] LABCLIA [id number] [place] [address] [place] Eosinophils/100 WBC (Bld) 1.1 % Normal [facility] Comment on above: Order Comment: Speci men Type: BLOOD SPECIMENOrdering Facility: [facility] Address: [address] [place] [address] Performed By: #### 4 537-7, 37174-5 ####[facility] LABCLIA [id number] [place] [address] [place] Erythrocyte distribution width (RBC) [Ratio] 14.0 % Normal 11.5-15.0 [facility] Comment on above: Order Comment: Speci men Type: BLOOD SPECIMENOrdering Facility: [facility] Address: [address] [place] [address] Performed By: #### 4 537-7, 51795-3 ####[facility] LABCLIA [id number] [place] [address] [place] Hematocrit (Bld) [Volume fraction] 38.2 % Normal 36.0-46.0 [facility] Comment on above: Order Comment: Speci men Type: BLOOD SPECIMENOrdering Facility: [facility] Address: [address] [place] [address] Performed By: #### 4 537-7, 99344-7 ####[facility] LABCLIA [id number] [place] [address] [place] Hemoglobin (Bld) [Mass/Vol] 12.1 g/dL Normal 11.5-15.5 [facility] Comment on above: Order Comment: Speci men Type: BLOOD SPECIMENOrdering Facility: [facility] Address: [address] [place] [address] Performed By: #### 4 537-7, 09556-1 ####[facility] LABCLIA [id number] [place] [address] [place] Immature granulocytes (Bld) [#/Vol] 0.07 10*3/uL Normal <0.10 [facility] Comment on above: Order Comment: Speci men Type: BLOOD SPECIMENOrdering Facility: [facility] Address: [address] [place] [address] Performed By: #### 4 537-7, 91999-2 ####[facility] LABIA [id number] [place] [address] [place] Immature granulocytes/100 WBC (Bld) 1.0 % Normal [facility] Comment on above: Order Comment: Speci men Type: BLOOD SPECIMENOrdering Facility: [facility] Address: [address] [place] [address] Performed By: #### 4 537-7, 90706-4 ####[facility] LABIA [id number] [place] [address] [place] Lymphocytes (Bld) [#/Vol] 2.61 10*3/uL Normal 1.00-4.00 [facility] Comment on above: Order Comment: Speci men Type: BLOOD SPECIMENOrdering Facility: [facility] Address: [address] [place] [address] Performed By: #### 4 537-7, 74906-1 ####[facility] LABCLIA [id number] [place] [address] [place] Lymphocytes/100 WBC (Bld) 36.1 % Normal [facility] Comment on above: Order Comment: Speci men Type: BLOOD SPECIMENOrdering Facility: [facility] Address: [address] [place] [address] Performed By: #### 4 537-7, 46811-1 ####[facility] LABCLIA [id number] [place] [address] [place] MCH (RBC) [Entitic mass] 29.0 pg Normal 26.0-34.0 [facility] Comment on above: Order Comment: Speci men Type: BLOOD SPECIMENOrdering Facility: [facility] Address: [address] [place] [address] Performed By: #### 4 537-7, 97167-7 ####[facility] LABCLIA [id number] [place] [address] [place] MCHC (RBC) [Mass/Vol] 31.7 g/dL Normal 30.5-36.0 [facility] Comment on above: Order Comment: Speci men Type: BLOOD SPECIMENOrdering Facility: [facility] Address: [address] [place] [address] Performed By: #### 4 537-7, 82198-1 ####[facility] LABIA [id number] [place] [address] [place] MCV (RBC) [Entitic vol] 91.6 fL Normal 80.0-100.0 [facility] Comment on above: Order Comment: Speci men Type: BLOOD SPECIMENOrdering Facility: [facility] Address: [address] [place] [address] Performed By: #### 4 537-7, 11208-2 ####[facility] LABCLIA [id number] [place] [address] [place] Monocytes (Bld) [#/Vol] 0.45 10*3/uL Normal <0.87 [facility] Comment on above: Order Comment: Speci men Type: BLOOD SPECIMENOrdering Facility: [facility] Address: [address] [place] [address] Performed By: #### 4 537-7, 36875-5 ####[facility] LABCLIA [id number] [place] [address] [place] Monocytes/100 WBC (Bld) 6.2 % Normal [facility] Comment on above: Order Comment: Speci men Type: BLOOD SPECIMENOrdering Facility: [facility] Address: [address] [place] [address] Performed By: #### 4 537-7, 18424-9 ####[facility] LABCLIA [id number] [place] [address] [place] Neutrophils (Bld) [#/Vol] 3.98 10*3/uL Normal 1.45-7.50 [facility] Comment on above: Order Comment: Speci men Type: BLOOD SPECIMENOrdering Facility: [facility] Address: [address] [place] [address] Performed By: #### 4 537-7, 84658-4 ####[facility] LABCLIA [id number] [place] [address] [place] Neutrophils/100 WBC (Bld) 55.2 % Normal [facility] Comment on above: Order Comment: Speci men Type: BLOOD SPECIMENOrdering Facility: [facility] Address: [address] [place] [address] Performed By: #### 4 537-7, 27910-4 ####[facility] LABCLIA [id number] [place] [address] [place] Nucleated RBC (Bld) [#/Vol] 10*3/uL Normal <0.01 [facility] Comment on above: Order Comment: Speci men Type: BLOOD SPECIMENOrdering Facility: [facility] Address: [address] [place] [address] Performed By: #### 4 537-7, 98537-9 ####[facility] LABIA [id number] [place] [address] [place] Nucleated RBC/100 WBC (Bld) [Ratio] 0.0 /100 WBC Normal [facility] Comment on above: Order Comment: Speci men Type: BLOOD SPECIMENOrdering Facility: [facility] Address: [address] [place] [address] Performed By: #### 4 537-7, 31683-4 ####[facility] LABIA [id number] [place] [address] [place] Platelet mean volume (Bld) [Entitic vol] 10.5 fL Normal 9.0-12.7 [facility] Comment on above: Order Comment: Speci men Type: BLOOD SPECIMENOrdering Facility: [facility] Address: [address] [place] [address] Performed By: #### 4 537-7, 08817-3 ####[facility] LABIA [id number] [place] [address] [place] Platelets (Bld) [#/Vol] 257 10*3/uL Normal 150-400 [facility] Comment on above: Order Comment: Speci men Type: BLOOD SPECIMENOrdering Facility: [facility] Address: [address] [place] [address] Performed By: #### 4 537-7, 22591-3 ####[facility] LABIA [id number] [place] [id number] [place] RBC (Bld) [#/Vol] 4.17 10*6/uL Normal 3.90-5.20 [facility] Comment on above: Order Comment: Speci men Type: BLOOD SPECIMENOrdering Facility: [facility] Address: [address] [place] [address] Performed By: #### 4 537-7, 71606-7 ####[facility] LABCLIA [id number] [place] [id number] [place] WBC (Bld) [#/Vol] 7.22 10*3/uL Normal 3.70-11.00 [facility] Comment on above: Order Comment: Speci men Type: BLOOD SPECIMENOrdering Facility: [facility] Address: [address] [place] [address] Performed By: #### 4 537-7, 89969-2 ####[facility] LABIA [id number] [place] [address] [place] CRP SerPl-ncon 09-21-2023 CRP [Mass/Vol] 1.4 mg/dL High <0.9 [facility] Comment on above: Order Comment: Speci men Type: BLOOD SPECIMENOrdering Facility: [facility] Address: [address] [place] [address] Performed By: #### 2 276-4, 1987-5, 3016-3, 29477-6 ####[facility] [id number] [place] [address] [place] ESR Westergren method (Bld) [Velocity]on 09-21-2023 ESR (Bld) [Velocity] 29 mm/h High 0-20 [facility] Comment on above: Order Comment: Speci men Type: BLOOD SPECIMENOrdering Facility: [facility] Address: [address] [place] [address] Performed By: #### 4 537-7, 83902-6 ####[facility] LABIA [id number] [place] [address] [place] Ferritin SerPl-mCncon 2023 Ferritin [Mass/Vol] 110.0 ng/mL Normal 14.7-205.1 [facility] Comment on above: Order Comment: Speci men Type: BLOOD SPECIMENOrdering Facility: [facility] Address: [address] [place] [address] Performed By: #### 2 276-4, 1988-5, 3016-3, 17661-4 ####[facility] LABIA [id number] [place] [address] [place] HbA1c (Bld)on 09-21-2023 Average glucose Estimated from glycated hemoglobin (Bld) [Mass/Vol] 114 mg/dL Normal [facility] Comment on above: Order Comment: Specmalachi men Type: BLOOD SPECIMENOrdering Facility: [facility] Address: [address] [place] [address] Result Comment: eAG: (Estimated average glucose) is a calculated value from HgbA1c and is customer operations representative of the average blood glucose level in the last 2-3 month period. Performed By: #### 5 5454-3 ####[facility] [id number] [address] STATES OF [facility] HbA1c (Bld) [Mass fraction] 5.6 % Normal 4.3-5.6 [facility] Comment on above: Order Comment: Shanda ignacio Type: BLOOD SPECIMENOrdering Facility: [facility] Address: [address] [place] [address] Result Comment: [place] Diabetes Association guidelines indicate that patients with HgbA1c in the range 5.7-6.4% are at increased risk for development of diabetes, and intervention by lifestyle modification may be beneficial. HgbA1c greater or equal to 6.5% is considered diagnostic of diabetes. Performed By: #### 5 5454-3 ####[facility] LABIA [id number] [place] [address] [place] Iron and Iron binding capaci ty panelon 09-21-2023 Iron [Mass/Vol] 75 ug/dL Normal 41-186 [facility] Comment on above: Order Comment: Shanda ignacio Type: BLOOD SPECIMENOrdering Facility: [facility] Address: [address] [place] [address] Performed By: #### 3 053-6, 3024-7, 85829-3, 50922-3 ####[facility] LABCLIA [id number] [address] [address] [place] Iron binding capacity [Mass/Vol] 254 ug/dL Normal 232-386 [facility] Comment on above: Order Comment: Speci men Type: BLOOD SPECIMENOrdering Facility: [facility] Address: [address] [place] [address] Performed By: #### 3 053-6, 3024-7, 07946-1, 24863-0 ####[facility] LABCLIA [id number] [place] [id number] [place] Iron/TIBC [Molar ratio] 29.5 % Normal 15.0-57.0 [facility] [place] Comment on above: Order Comment: Speci men Type: BLOOD SPECIMENOrdering Facility: [facility] Address: [address] [place] [address] Performed By: #### 3 053-6, 3024-7, 93304-6, 99092-2 ####[facility] [id number] [place] [id number] [place] Lipid 1996 panelon 4 Cholesterol [Mass/Vol] 190 mg/dL Normal <200 [facility] [place] Comment on above: Order Comment: Speci men Type: BLOOD SPECIMENOrdering Facility: [facility] Address: [address] [place] [address] Result Comment: <200 mg/dL, Desirable 200-239 mg/dL, Borderline high >239 mg/dL, High Performed By: #### 3 053-6, 3024-7, 03615-9, 00328-2 ####[facility] [id number] [place] [id number] [place] Cholesterol in HDL [Mass/Vol] 44 mg/dL Normal >39 [facility] [place] Comment on above: Order Comment: Speci men Type: BLOOD SPECIMENOrdering Facility: [facility] Address: [address] [place] [address] Result Comment: 40-5 9 mg/dL, Acceptable >59 mg/dL, High: Negative risk factor for coronary heart disease <40 mg/dL, Low: Positive risk factor for coronary heart disease Performed By: #### 3 053-6, 3024-7, 26152-8, 38270-6 ####[facility] LABCLIA [id number] [facility] [address] [address] [place] Cholesterol in LDL [Mass/Vol] 128 mg/dL High <100 [facility] [place] Comment on above: Order Comment: Speci men Type: BLOOD SPECIMENOrdering Facility: [facility] Address: [address] [place] [address] Result Comment: <100 mg/dL, Optimal 100-129 mg/dL, Near optimal/above optimal 130-159 mg/dL, Borderline high 160-189 mg/dL, High >189 mg/dL, Very high Secondary prevention optimal LDL Cholesterol levels are recommended to be < 70 mg/dL Performed By: #### 3 053-6, 3024-7, 60901-9, 00468-8 ####[facility] LABCLIA [id number] [place] [address] [place] Cholesterol in LDL/Cholesterol in HDL [Mass ratio] 2.91 {ratio} High <2.54 [facility] [place] Comment on above: Order Comment: Speci men Type: BLOOD SPECIMENOrdering Facility: [facility] Address: [address] [place] [address] Result Comment: Refgia rahman: 1. National Cholesterol Education Program ATP III Guideline At-A-Glance Quick Desk Reference: National Heart, Lung, and Blood [place]. National Institutes of Health. 2001: NIH Publication No. 01-3305. 2. An International Atherosclerosis Society position paper: global recommendations for the management of dyslipidemia: executive summary, Atherosclerosis. 2014: 232(2):410-413. Performed By: #### 3 053-6, 3024-7, 96399-1, 79843-5 ####[facility] LABCLIA [id number] [place] [id number] [place] Cholesterol in VLDL [Mass/Vol] 18 mg/dL Normal <30 [facility] [place] Comment on above: Order Comment: Speci men Type: BLOOD SPECIMENOrdering Facility: [facility] Address: [address] [place] [address] Performed By: #### 3 053-6, 3024-7, 70718-9, 87849-2 ####[facility] LABCLIA [id number] [place] [address] [place] Cholesterol non HDL [Mass/Vol] 146 mg/dL High <130 [facility] [place] Comment on above: Order Comment: Speci men Type: BLOOD SPECIMENOrdering Facility: [facility] Address: [address] [place] [address] Result Comment: <130 mg/dL, Optimal 130-159 mg/dL, Near optimal/above optimal 160-189 mg/dL, Borderline high 190-219 mg/dL, High >219 mg/dL, Very high Secondary prevention optimal non HDL Cholesterol levels are recommended to be <100 mg/dL Performed By: #### 3 053-6, 3024-7, 90265-4, 85391-4 ####[facility] LABCLIA [id number] [place] [address] [place] Cholesterol.total/Ch olesterol in HDL [Mass ratio] 4.32 {ratio} Normal <5.10 [facility] [place] Comment on above: Order Comment: Speci men Type: BLOOD SPECIMENOrdering Facility: [facility] Address: [address] [place] [address] Performed By: #### 3 053-6, 3024-7, 22429-7, 61887-9 ####[facility] LABCLIA [id number] [place] [address] [place] FASTING TIME 12 hrs Normal [facility] [place] Comment on above: Order Comment: Speci men Type: BLOOD SPECIMENOrdering Facility: [facility] Address: [address] [place] [address] Performed By: #### 3 053-6, 3024-7, 51927-7, 33414-7 ####[facility] LABCLIA [id number] [place] [id number] [place] Triglyceride [Mass/Vol] 89 mg/dL Normal <150 [facility] [place] Comment on above: Order Comment: Speci men Type: BLOOD SPECIMENOrdering Facility: [facility] Address: [address] [place] [address] Result Comment: <150 mg/dL, Normal 150-199 mg/dL, Borderline high 200-499 mg/dL, High >499 mg/dL, Very high Performed By: #### 3 053-6, 3024-7, 56101-2, 49042-6 ####[facility] LABCLIA [id number] [place] [address] [place] Magnesium SerPl-mCncon 09-20 Magnesium [Mass/Vol] 2.2 mg/dL Normal 1.7-2.3 [facility] Comment on above: Order Comment: Speci men Type: BLOOD SPECIMENOrdering Facility: [facility] Address: [address] [place] [address] Performed By: #### 2 276-4, 1987-5, 3016-3, 23512-6 ####[facility] LABCLIA [id number] [place] [address] [place] T3 SerPl-mCncon 09-21-2023 T3 [Mass/Vol] 173 ng/dL High 79-165 [facility] [place] Comment on above: Order Comment: Speci men Type: BLOOD SPECIMENOrdering Facility: [facility] Address: [address] [place] [address] Performed By: #### 3 053-6, 3024-7, 85187-6, 54532-2 ####[facility] LABCLIA [id number] [place] [address] [place] T4 Free SerPl-mCncon 024 Free T4 [Mass/Vol] 1.1 ng/dL Normal 0.9-1.7 [facility] Comment on above: Order Comment: Shanda ignacio Type: BLOOD SPECIMENOrdering Facility: [facility] Address: [address] [place] [address] Performed By: #### 3 053-6, 3024-7, 42123-9, 81916-3 ####[facility] LABCLIA [id number] [place] [address] [place] TSH SerPl-aCncon 09-21-2023 TSH Qn 1.700 m[IU]/L Normal 0.270-4.200 [facility] [place] Comment on above: Order Comment: Shanda ignacio Type: BLOOD SPECIMENOrdering Facility: [facility] Address: [address] [place] [address] Result Comment: If t he patient is , TSH reference range varies by gestational period: First Trimester (weeks 9-12): 0.180-2.990 mIU/L Second Trimester: 0.110-3.980 mIU/L Third Trimester: 0.480-4.710 mIU/L Max Ricci et al. A Practical Approach for the Verifications and Determination of Site- and Trimester-Specific Reference Intervals for Thyroid Function tests in . Thyroid, 2019:29:3:412-420. Rey Kim, et al. 2017 Guidelines of the [place] Thyroid [employer] for the Diagnosis and Management of Thyroid Disease during and the . Thyroid, 2017:27:3:315-389. Performed By: #### 2 276-4, 1987-5, 3016-3, 18385-1 ####[facility]IA [id number] [place] [id number] [place] CNOVon 09-06-2023 CNOV Office Visit (FAMPWS ) SWATHI WAHL ([id number]) 1990 F Date Time Provider Department 09/06/23 8:40 AM URSULA BE During your visit today, we recorded the following information about you: Pulse Respiration Blood pressure Weight 87/minute 16/minute 104/80 152.4 kg Ursula Be APRN.JACQUARD LOOM CARD CHANGER 09/06/2023 10:32 AM Signed This is a [...] helping. Wrists and back. 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 Inflammatory markers were elevated on last check, [...] Abdomen: Abdome (more content not included)... Normal [facility] CNOVon 04-15-2023 CNOV Office Visit (UCWSTR ) SWATHI WAHL ([id number]) 1990 F Date Time Provider Department 04/15/23 10:15 AM PAOLO MAGAÑA RUST During your visit today, we recorded the following information about you: Temperature Pulse Respiration Blood pressure 98.1 degrees 84/minute 16/minute 118/64 Weight Last Period 154 kg 04/14/23 Paolo Magaña APRN.JACQUARD LOOM CARD CHANGER 04/15/2023 10:34 AM Signed Subjective HPI Nontoxic-appearing [...] oropharyngeal erythema. (more content not included)... Normal [facility] .Auto Diffon 10-17-2020 Basophil, Absolute 0.10 10 3/mcL Normal 0.00-0.19 [facility] ([place]) Comment on above: Performed By: #### A DIFF, CBC, ANEU, ALC, BMP #### [address] [address] #### GFR #### [address] [address] Basophils/100 WBC (Bld) 0.9 % Normal 0.0-2.5 Pending Sale To [facility] ([place]) Comment on above: Performed By: #### A DIFF, CBC, ANEU, ALC, BMP #### [address] [address] #### GFR #### [address] [address] Eosinophil, Absolute 0.10 10 3/mcL Normal 0.00-0.40 A [facility] ([place]) Comment on above: Performed By: #### A DIFF, CBC, ANEU, ALC, BMP #### [address] [address] #### GFR #### [address] [address] Eosinophils/100 WBC (Bld) 1.6 % Normal 0.0-7.0 Pending [facility] To [facility] ([place]) Comment on above: Performed By: #### A DIFF, CBC, ANEU, ALC, BMP #### [address] [address] #### GFR #### [address] [address] Lymphocyte, Absolute 2.70 10 3/mcL Normal 0.77-3.85 A [facility] ([place]) Comment on above: Performed By: #### A DIFF, CBC, ANEU, ALC, BMP #### [address] [address] #### GFR #### [address] [address] Lymphocytes/100 WBC (Bld) 32.6 % Normal 10.0-50.0 Pending [facility] To [facility] ([place]) Comment on above: Performed By: #### A DIFF, CBC, ANEU, ALC, BMP #### [place] [address] #### GFR #### [address] [address] Monocyte, Absolute 0.60 10 3/mcL Normal 0.15-1.00 [facility] ([place]) Comment on above: Performed By: #### A DIFF, CBC, ANEU, ALC, BMP #### [address] [address] #### GFR #### [address] [address] Monocytes/100 WBC (Bld) 7.5 % Normal 1.7-13.0 Pending [facility] To [facility] ([place] Comment on above: Performed By: #### A DIFF, CBC, ANEU, ALC, BMP #### [address] [address] #### GFR #### [address] [address] Neutrophils/100 WBC (Bld) 57.4 % Normal 37.0-80.0 Pending [facility] To [facility] ([place]) Comment on above: Performed By: #### A DIFF, CBC, ANEU, ALC, BMP #### [address] [address] #### GFR #### [address] [address] .GFRon 10-17-2020 GFR 109 ml/min/1.73sqm Normal Pending [facility] To [facility] ([place]) Comment on above: Result Comment: GFR Population [...] A DIFF, CBC, ANEU, ALC, BMP #### [address] [address] #### GFR #### [address] [address] GFR Non- 90 ml/min/1.73sqm Normal Pending [facility] ([place]) Comment on above: Result Comment: GFR Population [...] A DIFF, CBC, ANEU, ALC, BMP #### [place] [address] #### GFR #### [place] [address] .NEUABSon 10-17-2020 Neutrophil, Absolute 4.80 10 3/mcL Normal 2.85-6.16 A [facility] ([place]) Comment on above: Performed By: #### A DIFF, CBC, ANEU, ALC, BMP #### [place] [address] #### GFR #### [place] [address] Nicole 10-17-2020 Ethanol Level 45 mg/dL High 0-3 Pending [facility] ([place] Comment on above: Performed By: #### A DIFF, CBC, ANEU, ALC, BMP #### [place] [address] #### GFR #### [place] [address] BMPon 10-17-2020 BUN/Creatinine Ratio 19 ratio Normal 7-27 [facility] ([place]) Comment on above: Performed By: #### A DIFF, CBC, ANEU, ALC, BMP #### [place] [address] #### GFR #### [place] [address] Calcium [Mass/Vol] 9.0 mg/dL Normal 8.4-10.2 [facility] ([place]) Comment on above: Performed By: #### A DIFF, CBC, ANEU, ALC, BMP #### [address] [address] #### GFR #### [address] [address] Chloride [Moles/Vol] 103 mmol/L Normal 98-107 [facility] ([place]) Comment on above: Performed By: #### A DIFF, CBC, ANEU, ALC, BMP #### [address] [address] #### GFR #### [address] [address] CO2 [Moles/Vol] 24 mmol/L Normal 22-29 Pending [facility] To [facility] ([place] Comment on above: Performed By: #### A DIFF, CBC, ANEU, ALC, BMP #### [address] [address] #### GFR #### [address] [address] Creatinine [Mass/Vol] 0.75 mg/dL Normal 0.55-1.02 Pending [facility] ([place]) Comment on above: Performed By: #### A DIFF, CBC, ANEU, ALC, BMP #### [address] [address] #### GFR #### [address] [address] Electrolyte Balance 12.0 mEq/L Normal [facility] ([place]) Comment on above: Performed By: #### A DIFF, CBC, ANEU, ALC, BMP #### [address] [address] #### GFR #### [address] [address] Glucose [Mass/Vol] 100 mg/dL Normal 70-105 [facility] ([place]) Comment on above: Performed By: #### A DIFF, CBC, ANEU, ALC, BMP #### [address] [address] #### GFR #### [address] [address] Potassium [Moles/Vol] 4.5 mmol/L Normal 3.5-5.1 Pending [facility] ([place] Comment on above: Performed By: #### A DIFF, CBC, ANEU, ALC, BMP #### [address] [address] #### GFR #### [address] [address] Sodium [Moles/Vol] 139 mmol/L Normal 136-145 [facility] ([place]) Comment on above: Performed By: #### A DIFF, CBC, ANEU, ALC, BMP #### [address] [address] #### GFR #### [place] [address] Urea nitrogen [Mass/Vol] 14 mg/dL Normal 7-18 Pending [facility] To [facility] ([place] Comment on above: Performed By: #### A DIFF, CBC, ANEU, ALC, BMP #### [place] [address] #### GFR #### [place] [address] CBCon 10-17-2020 Erythrocyte distribution width (RBC) [Ratio] 14.7 % High 11.5-14.5 Pending [facility] To [facility] ([place]) Comment on above: Performed By: #### A DIFF, CBC, ANEU, ALC, BMP #### [place] [address] #### GFR #### [place] [address] Hematocrit (Bld) [Volume fraction] 42.7 % Normal 37.0-47.0 Pending [facility] To [facility] ([place]) Comment on above: Performed By: #### A DIFF, CBC, ANEU, ALC, BMP #### [place] [address] #### GFR #### [place] [address] Hgb 14.3 G/dL Normal 12.0-16.0 Pending [facility] To [facility] ([place]) Comment on above: Performed By: #### A DIFF, CBC, ANEU, ALC, BMP #### [address] [address] #### GFR #### [address] [address] MCH (RBC) [Entitic mass] 31.5 pg High 27.0-31.2 Pending [facility] ([place] Comment on above: Performed By: #### A DIFF, CBC, ANEU, ALC, BMP #### [place] [address] #### GFR #### [address] [address] MCHC 33.4 G/dL Normal 33.0-37.0 Pending [facility] ([place]) Comment on above: Performed By: #### A DIFF, CBC, ANEU, ALC, BMP #### [place] [address] #### GFR #### [place] [address] MCV (RBC) [Entitic vol] 94.2 fL High 80.0-94.0 Pending [facility] To [facility] ([place]) Comment on above: Performed By: #### A DIFF, CBC, ANEU, ALC, BMP #### [place] [address] #### GFR #### [address] [address] Platelet 227 10 3/mcL Normal 130-400 Pending [facility] ([place]) Comment on above: Performed By: #### A DIFF, CBC, ANEU, ALC, BMP #### [place] [address] #### GFR #### [address] [address] Platelet mean volume (Bld) [Entitic vol] 8.5 fL Normal 7.4-10.4 Pending [facility] ([place] Comment on above: Performed By: #### A DIFF, CBC, ANEU, ALC, BMP #### [place] [address] #### GFR #### [place] [address] RBC 4.54 10 6/mcL Normal 4.20-5.40 Pending [facility] ([place] Comment on above: Performed By: #### A DIFF, CBC, ANEU, ALC, BMP #### [address] [address] #### GFR #### [place] [address] WBC 8.40 10 3/mcL Normal 4.60-10.80 P[facility] ([place]) Comment on above: Performed By: #### A DIFF, CBC, ANEU, ALC, BMP #### [address] [address] #### GFR #### [place] [address] [id number] 10-17-2020 Date of Onset [id number] Invalid Interpretation Code P[facility] ([place]) Comment on above: Performed By: #### C OVD19 #### [place] [address] Employed in Healthcare No [facility] ([place]) Comment on above: Performed By: #### C OVD19 #### [place] [address] First Test No [facility] ([place] Comment on above: Performed By: #### C OVD19 #### [place] [address] Hospitalized No [facility] ([place] Comment on above: Performed By: #### C OVD19 #### [place] [address] ICU No [facility] ([place] Comment on above: Performed By: #### C OVD19 #### [place] [address] Not [facility] ([place] Comment on above: Performed By: #### C OVD19 #### [place] [address] Resides in Congregate Care Setting No [facility] ([place]) Comment on above: Performed By: #### C OVD19 #### [facility] [address] [place] [address] SARS-CoV-2 (COVID-19) RNA ESHA+probe Ql (Unsp spec) Negative Normal Negative Pending [facility] To [facility] ([place]) Comment on above: Performed By: #### C OVD19 #### [facility] [address] [place] [address] SARS-CoV-2 (COVID-19) RNA ESHA+probe Ql (Unsp spec) Normal Pending [facility] To [facility] ([place]) Comment on above: Result Comment: Nega [...] Int Performed By: #### C OVD19 #### [address] [address] Symptomatic as Defined by CDC Unknown Normal Pending [facility] ([place]) Comment on above: Performed By: #### C OVD19 #### [place] [id number] PREGUon 10-17-2020 HCG ( test) Ql (U) Negative Normal Pending [facility] ([place]) Comment on above: Performed By: #### P REGU, TOXSC #### [address] [address] test (u) int Not detected Invalid Interpretation Code Pending [facility] ([place]) Comment on above: Performed By: #### P REGU, TOXSC #### [address] [address] TOXSCon 10-17-2020 U Ampheta (AO) Positive [facility] ([place]) Comment on above: Performed By: #### P REGU, TOXSC #### [address] [address] U Honey (AO) Negative [facility] ([place]) Comment on above: Performed By: #### P REGU, TOXSC #### [address] [address] U Tan (AO) Negative [facility] ([place]) Comment on above: Performed By: #### P REGU, TOXSC #### [address] [address] U Cannab (AO) Negative [facility] ([place]) Comment on above: Performed By: #### P REGU, TOXSC #### [address] [address] U Cocaine (AO) Negative [facility] ([place]) Comment on above: Performed By: #### P REGU, TOXSC #### [address] [address] U Methadone (AO) Negative [facility] ([place] Comment on above: Performed By: #### P REGU, TOXSC #### [address] [address] U PCP (AO) Negative [facility] ([place] Comment on above: Performed By: #### P REGU, TOXSC #### [address] [address] U TCA (AO) Positive [facility] ([place]) Comment on above: Performed By: #### P REGU, TOXSC #### [address] [address] Urine Opiates (AO) Negative [facility] ([place] Comment on above: Performed By: #### P REGU, TOXSC #### [place] [address] [place], [place] [address] Acetamnphn Lvlon 11-07-2017 Acetaminophen mass conc <10 Normal 0-15 [facility] Comment on above: Result Comment: Meliza nol - Therapeutic 10-30 ug/ml Toxic 4 hr. Post ingestion >150 ug/ml Toxic 8hr Post ingestion >75 ug/ml Toxic 12hr. Post ingestion >40 ug/ml Performed By: #### 2 063881 ####JOE [id number] [place] [address] Auto Diffon 11-07-2017 Basophils Auto #/vol (Bld) 0.1 E3/mcL Normal 0.0-0.2 [facility] Comment on above: Order Comment: Order Added by Discern Expert. Performed By: #### 2 798116 ####JOE WetzelRfkAuwp3894 [place] [address] Basophils/100 WBC Auto (Bld) 0.7 % Normal 0.0-2.0 [facility] Comment on above: Order Comment: Order Added by Discern Expert. Performed By: #### 2 215355 ####JOE BzrVsnk0543 [place] [address] Eos Absolute 0.2 E3/mcL Normal 0.0-0.7 [facility] Comment on above: Order Comment: Order Added by Discern Expert. Performed By: #### 2 805275 ####JOE IawXllq2472 [place] [address] Eosinophils/100 leukocytes 1.8 % Normal 0.0-11.0 [facility] Comment on above: Order Comment: Order Added by Discern Expert. Performed By: #### 2 858969 ####JOE IxfDmaf3326 [place] [address] Lymphocytes 3.0 E3/mcL Normal 1.2-3.4 [facility] Comment on above: Order Comment: Order Added by Discern Expert. Performed By: #### 2 325150 ####JOE WczBetm6627 [place] [address] Lymphocytes/100 leukocytes 30.9 % Normal 20.0-55.0 [facility] Comment on above: Order Comment: Order Added by Discern Expert. Performed By: #### 2 073379 ####JOE Mart[address] [place] [address] [place] Absolute 0.6 E3/mcL Normal 0.0-0.7 [facility] Comment on above: Order Comment: Order Added by Discern Expert. Performed By: #### 2 585654 ####JOE [address] [place] [address] Monocytes/100 leukocytes 6.6 % Normal 0.0-10.0 [facility] Comment on above: Order Comment: Order Added by Discern Expert. Performed By: #### 2 675297 ####JOE [address] [place] [address] Neutro Absolute 5.9 E3/mcL Normal 1.4-6.5 [facility] Comment on above: Order Comment: Order Added by Discern Expert. Performed By: #### 2 872771 ####JOE [address] [place] [address] Neutro Auto 60.0 % Normal 37.0-75.0 [facility] Comment on above: Order Comment: Order Added by Discern Expert. Performed By: #### 2 755656 ####JOE [address] [place] [address] CBC w/ Auto Diffon 8 Erythrocyte distribution width Auto Ratio (RBC) 18.0 % High 11.5-14.5 [facility] Comment on above: Performed By: #### 2 028436 ####JOE [address] [place] [address] Erythrocytes (RBC) 3.83 E6/mcL Low 3.90-5.40 [facility] Comment on above: Performed By: #### 2 883768 ####JOE [address] [place] [address] Hematocrit (HCT) 33.0 % Low 36.0-48.0 [facility] Comment on above: Performed By: #### 2 923600 ####JOE [address] [place] [address] Hemoglobin mass conc (Bld) 10.7 g/dL Low 12.0-16.0 [facility] Comment on above: Performed By: #### 2 265035 ####JOE [address] [place] [address] MCH 27.9 pg Normal 27.0-31.0 [facility] Comment on above: Performed By: #### 2 076771 ####JOE PrvGvqj[address] [place] [address] MCHC mass conc (RBC) 32.4 g/dL Low 33.0-37.0 [facility] Comment on above: Performed By: #### 2 559893 ####JOE [address] [place] [address] MCV 86.0 fL Normal 78.0-100.0 [facility] Comment on above: Performed By: #### 2 540587 ####JOE S[address] [place] [address] Platelet mean volume (PMV) 8.7 fL Normal 7.4-11.0 [facility] Comment on above: Performed By: #### 2 152644 ####JOE [address] [place] [address] Platelets 250 E3/mcL Normal 130-400 [facility] Comment on above: Performed By: #### 2 043899 ####JOE [address] [place] [address] WBC (Leukocytes) 9.9 E3/mcL Normal 3.6-11.0 [facility] Comment on above: Performed By: #### 2 109489 ####JOEAbhay WetzelOvbGbvo[address] [place] [id number] CMPon 11-07-2017 Alanine aminotransferase (ALT) 17 Int._Unit/L Normal 10-40 [facility] Comment on above: Performed By: #### 2 447902 ####JOEAbhay WetzelTczUvfz75[address] [place] [address] Albumin 3.4 g/dL Normal 3.2-5.0 [facility] Comment on above: Performed By: #### 2 037435 ####JOE [address] [place] [address] Albumin/Globulin Ratio 1.1 {ratio} Normal 1.1-1.9 [facility] Comment on above: Performed By: #### 2 618524 ####JOE [address] [place] [address] Alk Phos 49 Int._Unit/L Normal 42-121 [facility] Comment on above: Performed By: #### 2 989756 ####JOE [address] [place] [address] Aspartate aminotransferase (AST) 15 Int._Unit/L Normal 10-42 [facility] Comment on above: Performed By: #### 2 560151 ####JOE [address] [place] [address] Bili Total 0.6 mg/dL Normal 0.2-1.0 [facility] Comment on above: Performed By: #### 2 [id number] ####JOE [address] [place] [address] BUN/Creatinine Ratio 28.6 ratio Normal 5.4-30.0 [facility] Comment on above: Performed By: #### 2 [id number] ####JOE ZxxIrsd5831 [place] [address] Creatinine 0.7 mg/dL Normal 0.6-1.3 [facility] Comment on above: Performed By: #### 2 [id number] ####JOE ImfFnlg8244 [place] [address] Globulin 3.1 g/dL Normal 2.0-4.0 [facility] Comment on above: Performed By: #### 2 [id number] ####JOE HxyMffx1337 [place] [address] Protein 6.5 g/dL Normal 6.4-8.3 [facility] Comment on above: Performed By: #### 2 [id number] ####JOE [address] [place] [address] Urea nitrogen 20 mg/dL High 7-18 [facility] Comment on above: Performed By: #### 2 [id number] ####JOE UwbMuzi9439 [place] [address] Calcium 8.9 mg/dL Normal 8.4-10.2 [facility] Comment on above: Performed By: #### 2 [id number] ####JOE AgmPrln4591 [place] [address] Chloride 107 mmol/L Normal 98-107 [facility] Comment on above: Performed By: #### 2 [id number] ####JOE [address] [place] [address] CO2 24.9 mmol/L Normal 24.0-30.0 [facility] Comment on above: Performed By: #### 2 [id number] ####JOE WlkTmhm6971 [place] [address] Glucose mass conc 123 mg/dL High 70-99 [facility] Comment on above: Performed By: #### 2 [id number] ####JOE VroZdah1400 [place] [address] Potassium molar conc 3.3 mmol/L Low 3.5-5.1 [facility] Comment on above: Performed By: #### 2 [id number] ####JOE XflLnnq5561 [place] [address] Sodium 138 mmol/L Normal 136-145 [facility] Comment on above: Performed By: #### 2 [id number] ####JOE WetzelZyoDbct[address] [place] [address] Ethanolon 11-07-2017 Ethanol Lvl <5 Normal 0-15 [facility] Comment on above: Result Comment: SAMP LES WITH CONCENTRATIONS <15 MG/DL SHOULD BEINTERPRETED NEGATIVE. FOR MEDICAL USE ONLY Performed By: #### 2 [id number] ####JOE [address]uf[address] [place] [id number] Morphon 11-07-2017 Anisocytosis presence 2+ Normal [facility] Comment on above: Order Comment: Order Added by Discern Expert. Performed By: #### 2 [id number] ####JOE Urinalysis Manual [address] [place] [id number] Erythrocyte morphology SEE MORPHOLOGY Normal [facility] Comment on above: Order Comment: Order Added by Discern Expert. Performed By: #### 2 [id number] ####JOE Urinalysis Manual Ynzhmnjjar2642 [place] [address] Salicylateon 11-07-2017 Salicylate Lvl <4 Low 15-30 [facility] Comment on above: Performed By: #### 2 [id number] ####JOE BwpZqau8709 [place] [address] U BhCG Qlton 11-07-2017 HCG.beta subunit Qn Negative Normal Neg [facility] Comment on above: Performed By: #### 2 [id number] ####JOE Urinalysis Manual Zwgdnbiola80[address] [place] [address] U Drug Screenon 11-07-2017 U Amph Scr Negative Normal [facility] Comment on above: Result Comment: Resu lts for medical use only. Confirmation of positive results will be done when requested. Specimens are kept for one week. Performed By: #### 2 [id number] ####JOE EdbAtvb5297 [place] [address] U Honey Scr Negative Normal [facility] Comment on above: Performed By: #### 2 [id number] ####JOE XdmVboh8888 [place] [address] U Benzodia Scr Negative [facility] Comment on above: Performed By: #### 2 [id number] ####JOE HsdIbco8666 [place] [address] U Cannab Scr Negative Normal [facility] Comment on above: Performed By: #### 2 [id number] ####JOE GqkZddv6834 [place] [address] U Cocaine Scr Negative Normal [facility] Comment on above: Performed By: #### 2 [id number] ####JOE NceGauv[address]10 [place] [address] U Opiate Scr Negative Normal [facility] Comment on above: Performed By: #### 2 [id number] ####JOE EkmSskc5857 [place] [address] U PCP Scr Negative Normal [facility] Comment on above: Performed By: #### 2 [id number] ####JOE GitOfyv2125 [place] [address] UA Completeon 11-07-2017 UA Blood Negative Normal Negative [facility] Comment on above: Performed By: #### 8 [id number] ####JOE Urinalysis Automated Cvx[address]riup05[address] [place] [address] UA Amorph Macie Trace Abnormal None [facility] Comment on above: Performed By: #### 8 [id number] ####JOE Urinalysis Automated [address]hlthkb37[address] [place] [address] UA Bacteria Trace Abnormal None [facility] Comment on above: Performed By: #### 8 [id number] ####JOE Urinalysis Automated Qrspdvwwos2820 [place] [address] UA Clarity Cloudy Abnormal Clear [facility] Comment on above: Performed By: #### 8 [id number] ####JOE Urinalysis Automated Qygyeropuq9985 [place] [address] UA Leuk Est 3+ Abnormal Negative [facility] Comment on above: Performed By: #### 8 [id number] ####JOE Urinalysis Automated [address] [place] [address] UA Mucous Trace Abnormal Trace [facility] Comment on above: Performed By: #### 8 [id number] ####JOE Urinalysis Automated [address]gevw50[address] [place] [address] UA Nitrite Negative Normal Negative [facility] Comment on above: Performed By: #### 8 [id number] ####JOE Urinalysis Automated [address] [place] [address] UA pH 7.0 Normal 4.6-8.0 [facility] Comment on above: Performed By: #### 8 [id number] ####JOE Urinalysis Automated [address]rdmgul8[address] [place] [address] UA Protein 1+ Abnormal Negative [facility] Comment on above: Performed By: #### 8 [id number] ####JOE Urinalysis Automated Mbrckoxods3585 [place] [address] UA Spec Grav 1.021 Normal 1.003-1.030 [facility] Comment on above: Performed By: #### 8 [id number] ####JOE Urinalysis Automated [address] [place] [address] UA Squam Epithelial 5-10 Abnormal 0-5 [facility] Comment on above: Performed By: #### 8 [id number] ####JOE Urinalysis Automated Zqtiuihnlt8486 [place] [address] UA Urobilinogen Negative Normal [facility] Comment on above: Performed By: #### 8 [id number] ####JOE Urinalysis Automated Rrxmjnfiar7984 [place] [address] UA WBC >50 Abnormal 0-5 [facility] Comment on above: Performed By: #### 8 [id number] ####JOE Urinalysis Automated [address] [place] [id number] Urine, color Yellow Normal Yellow [facility] Comment on above: Performed By: #### 8 [id number] ####JOE Urinalysis Automated [address] [place] [address] Urine, erythrocytes 3-5 Abnormal 0-3 [facility] Comment on above: Performed By: #### 8 [id number] ####JOE Urinalysis Automated Mrlfxvczsd1160 [place] [address] Urine, glucose Negative Normal Negative [facility] Comment on above: Performed By: #### 8 [id number] ####JOE Urinalysis Automated Sw[address]xrzmosj8284 [place] [address] Urine, ketones presence Negative Normal Negative [facility] Comment on above: Performed By: #### 8 [id number] ####JOE Urinalysis Automated Suldygiaqa3216 [place] [address] Urine, urobilinogen Negative Normal Negative [facility] Comment on above: Performed By: #### 8 [id number] ####JOE Urinalysis Automated [address]qpsle6434 [place] [address] eGFRon 11-07-2017 eGFR (non-black) mL/min/{1.73_m2} Normal [facility] Comment on above: Order Comment: Order added by Discern Expert. Performed By: #### 1 [id number] ####JOE XqsRumb7422 [place] [address] zzplt morphon 11-07-2017 Platelet morphology NORMAL Normal [facility] Comment on above: Performed By: #### 2 [id number] ####JOE Urinalysis Manual [address]tw[address] [place] [id number] Platelets NORMAL Normal [facility] Comment on above: Performed By: #### 2 [id number] ####JOE Urinalysis Manual [address] [place] [address] Vital Signs Date Time Vital Sign Value Performing Clinician Facility 03-17-2024 10:57-0400 Body mass index (BMI) [Ratio] 55.03 kg/m2 Osmani Marroquin MD Work Phone: [facility] 03-17-2024 10:57-0400 Body temperature 98.01 [degF] Osmani Marroquin MD Work Phone: [facility] 03-17-2024 10:57-0400 Body weight 157 kg Osmani Marroquin MD Work Phone: [facility] 03-17-2024 10:57-0400 Diastolic blood pressure 78 mm[Hg] Osmani Marroquin MD Work Phone: [facility] 03-17-2024 10:57-0400 Heart rate 87 /min Osmani Marroquin MD Work Phone: [facility] 03-17-2024 10:57-0400 Respiratory rate 18 /min Osmani Marroquin MD Work Phone: [facility] 03-17-2024 10:57-0400 SaO2% (BldA) [Mass fraction] 99 % Osmani Marroquin MD Work Phone: [facility] 03-17-2024 10:57-0400 Systolic blood pressure 132 mm[Hg] Osmani Marroquin MD Work Phone: [facility] 03-14-2024 09:35-0400 Body mass index (BMI) [Ratio] 54.68 kg/m2 Alberta Edward MD Work Phone: [facility] 03-14-2024 09:35-0400 Body weight 156 kg Alberta Edward MD Work Phone: [facility] 03-14-2024 09:35-0400 Diastolic blood pressure 74 mm[Hg] Alberta Edward MD Work Phone: [facility] 03-14-2024 09:35-0400 Heart rate 66 /min Alberta Edward MD Work Phone: [facility] 03-14-2024 09:35-0400 Systolic blood pressure 132 mm[Hg] Alberta Edward MD Work Phone: [facility] 03-13-2024 10:11-0400 Body height 168.9 cm Angela Santos MD Work Phone: [facility] 03-13-2024 10:11-0400 Body mass index (BMI) [Ratio] 54.85 kg/m2 Angela Santos MD Work Phone: [facility] 03-13-2024 10:11-0400 Body weight 156.49 kg Angela Santos MD Work Phone: [facility] 03-13-2024 10:11-0400 Diastolic blood pressure 84 mm[Hg] Angela Santos MD Work Phone: [facility] 03-13-2024 10:11-0400 Heart rate 90 /min Angela Santos MD Work Phone: [facility] 03-13-2024 10:11-0400 SaO2% (BldA) [Mass fraction] 99 % Angela Santos MD Work Phone: [facility] 03-13-2024 10:11-0400 Systolic blood pressure 144 mm[Hg] Angela Santos MD Work Phone: [facility] 03-08-2024 08:57-0400 Body mass index (BMI) [Ratio] 54.9 kg/m2 Michelle Roberts [employer] SAL[employer] Work Phone: [facility] 03-08-2024 08:57-0400 Body temperature 97.39 [degF] Michelle Roberts [employer] Work Phone: [facility] 03-08-2024 08:57-0400 Body weight 156.8 kg Michelle Moomaw [employer]ER Work Phone: [facility] 03-08-2024 08:57-0400 Diastolic blood pressure 86 mm[Hg] Michelle Moomaw [employer] CH[employer]ER Work Phone: [facility] 03-08-2024 08:57-0400 Heart rate 100 /min Michelle Moomaw [employer] CH[employer]ER Work Phone: [facility] 03-08-2024 08:57-0400 Respiratory rate 21 /min Michelle Moomaw [employer] SALESPERSON.[employer]ARD [employer] CH[employer]ER Work Phone: [facility] 03-08-2024 08:57-0400 SaO2% (BldA) [Mass fraction] 97 % Michelle Moomaw [employer] SAL[employer]ARD [employer] CH[employer]ER Work Phone: [facility] 03-08-2024 08:57-0400 Systolic blood pressure 140 mm[Hg] Michelle Moomaw [employer] SAL[employer]ERSON[employer] CH[employer]ER Work Phone: [facility] 11-22-2023 10:16-0400 Body height 169 cm Manuela Pearce [employer] SALESPERSON.CNM Work Phone: [facility] 11-22-2023 10:16-0400 Body mass index (BMI) [Ratio] 53.52 kg/m2 Manuela Pearce [employer].CNM Work Phone: [facility] 11-22-2023 10:16-0400 Body weight 152.86 kg Manuela Pearce [employer].CNM Work Phone: [facility] 11-22-2023 10:16-0400 Diastolic blood pressure 72 mm[Hg] Manuela Pearce [employer] SAL[employer]ERSON.CNM Work Phone: [facility] 11-22-2023 10:16-0400 Systolic blood pressure 120 mm[Hg] Manuela Pearce [employer] SAL[employer]ERSON.CNM Work Phone: [facility] 11-15-2023 09:56-0400 Body mass index (BMI) [Ratio] 54.55 kg/m2 Ursula Hernandezagen [employer]ER Work Phone: [facility] 11-15-2023 09:56-0400 Body weight 153.32 kg Ursula Haagen [employer]ER Work Phone: [facility] 11-15-2023 09:56-0400 Diastolic blood pressure 92 mm[Hg] Ursula Haagen [employer] SAL[employer]ERSON.[employer] CH[employer]ER Work Phone: [facility] 11-15-2023 09:56-0400 Heart rate 88 /min Ursula Haagen [employer]ERSON.[employer]ER Work Phone: [facility] 11-15-2023 09:56-0400 Respiratory rate 16 /min Ursula Haagen [employer] SAL[employer]ERSON.[employer] CH[employer]ER Work Phone: [facility] 11-15-2023 09:56-0400 SaO2% (BldA) [Mass fraction] 95 % Ursula Haagen [employer] SAL[employer]ERSON.[employer] CH[employer]ER Work Phone: [facility] 11-15-2023 09:56-0400 Systolic blood pressure 124 mm[Hg] Ursula Haagen [employer] SAL[employer]ERSON.[employer] CH[employer]ER Work Phone: [facility] 09-06-2023 08:45-0400 Body weight 152.41 kg Ursula Haagen [employer]ERSON.[employer]ER Work Phone: [facility] 09-06-2023 08:45-0400 Diastolic blood pressure 80 mm[Hg] Ursula Haagen [employer]ERSON.[employer] CH[employer]ER Work Phone: [facility] 09-06-2023 08:45-0400 Heart rate 87 /min Ursula Haagen [employer] SAL[employer]ERSON.[employer] CH[employer]ER Work Phone: [facility] 09-06-2023 08:45-0400 Respiratory rate 16 /min Ursula Haagen [employer] SAL[employer]ERSON.[employer] CH[employer]ER Work Phone: [facility] 09-06-2023 08:45-0400 SaO2% (BldA) [Mass fraction] 96 % Ursula Haagen [employer] SAL[employer]ERSON.[employer] CH[employer]ER Work Phone: [facility] 09-06-2023 08:45-0400 Systolic blood pressure 104 mm[Hg] Ursula Haagen [employer] SAL[employer]ERSON.[employer] CH[employer]ER Work Phone: [facility] 04-15-2023 10:21-0500 Body temperature 98.1 [degF] [facility] [employer]ERSON.[employer] CH[employer]ER Work Phone: [facility] 04-15-2023 10:21-0500 Body weight 153.95 kg [facility] [employer]ERSON.[employer] C[employer] CH[employer]ER Work Phone: [facility] 04-15-2023 10:21-0500 Diastolic blood pressure 64 mm[Hg] [facility] [employer]ERSON.[employer] CH[employer]ER Work Phone: [facility] 04-15-2023 10:21-0500 Heart rate 84 /min [facility] [employer] CH[employer]ER Work Phone: [facility] 04-15-2023 10:21-0500 Respiratory rate 16 /min [facility] [employer] SAL[employer]ERSON.[employer] C[employer] CHANGER Work Phone: [facility] 04-15-2023 10:21-0500 SaO2% (BldA) [Mass fraction] 96 % [facility] [employer]ERSON.[employer]QUARD [employer] C[employer] CHANGER Work Phone: [facility] 04-15-2023 10:21-0500 Systolic blood pressure 118 mm[Hg] [facility] [employer]ERSON.[employer] CH[employer]ER Work Phone: [facility] 07-01-2022 15:47-0500 Body weight 166.92 kg NA Arriaga PA-C Work Phone: [facility] 07-01-2022 15:47-0500 Diastolic blood pressure 78 mm[Hg] NA Arriaga PA-C Work Phone: [facility] 07-01-2022 15:47-0500 Heart rate 91 /min NA Arriaga PA-C Work Phone: [facility] 07-01-2022 15:47-0500 Respiratory rate 16 /min NA Arriaga PA-C Work Phone: [facility] 07-01-2022 15:47-0500 SaO2% (BldA) [Mass fraction] 96 % NA Arriaga PA-C Work Phone: [facility] 07-01-2022 15:47-0500 Systolic blood pressure 120 mm[Hg] NA Arriaga PA-C Work Phone: [facility] 05-03-2022 11:36-0500 Body weight 159.21 kg Ursula Haagen [employer] SAL[employer]ERSON.[employer] CH[employer]ER Work Phone: [facility] 05-03-2022 11:36-0500 Diastolic blood pressure 86 mm[Hg] Ursula Haagen [employer] SAL[employer]ERSON.[employer] CHANGER Work Phone: [facility] 05-03-2022 11:36-0500 Heart rate 67 /min Ursula Haagen [employer] SAL[employer]ERSON.[employer] CH[employer]ER Work Phone: [facility] 05-03-2022 11:36-0500 Respiratory rate 18 /min Ursula Haagen [employer] SAL[employer]ERSON.[employer] CH[employer]ER Work Phone: [facility] 05-03-2022 11:36-0500 SaO2% (BldA) [Mass fraction] 95 % Ursula Haagen [employer] SAL[employer]ERSON.[employer] C[employer] CH[employer]ER Work Phone: [facility] 05-03-2022 11:36-0500 Systolic blood pressure 124 mm[Hg] Ursula Haagen [employer] SAL[employer]ERSON.[employer] CH[employer]ER Work Phone: [facility] 03-24-2022 11:49-0400 Body weight 155.58 kg Ursula Haagen [employer] SAL[employer]ERSON.[employer] CH[employer]ER Work Phone: [facility] 03-24-2022 11:49-0400 Diastolic blood pressure 90 mm[Hg] Ursula Haagen [employer] SAL[employer]ERSON.[employer] CH[employer]ER Work Phone: [facility] 03-24-2022 11:49-0400 Heart rate 75 /min Ursula Haagen [employer] SAL[employer]ERSON.[employer] CH[employer]ER Work Phone: [facility] 03-24-2022 11:49-0400 Respiratory rate 18 /min Ursula Haagen [employer] SAL[employer]ERSON.[employer] CH[employer]ER Work Phone: [facility] 03-24-2022 11:49-0400 SaO2% (BldA) [Mass fraction] 98 % Ursula Haagen [employer] SAL[employer]ERSON.J[employer]QUARD [employer] C[employer] CHANGER Work Phone: [facility] 03-24-2022 11:49-0400 Systolic blood pressure 136 mm[Hg] Ursula Be [employer] SAL[employer]ERSON.[employer] CH[employer]ER Work Phone: [facility] 04-24-2021 18:35-0500 Body temperature 99.86 [degF] DOLORES ZENG MD [facility] 04-24-2021 18:35-0500 Diastolic blood pressure 86 mm[Hg] DOLORES ZENG MD [facility] 04-24-2021 18:35-0500 Heart rate 88 /min DOLORES ZENG MD [facility] 04-24-2021 18:35-0500 Respiratory rate 16 /min DOLORES ZENG MD [facility] 04-24-2021 18:35-0500 Systolic blood pressure 147 mm[Hg] DOLORES ZENG MD [facility] Encounters Encounter Date Encounter Type Care Provider Facility Start: 03-17-2024 End: 03-17-2024 Office outpatient visit 15 minutes Osmani Marroquin MD Work Phone: [facility] Comment on above: URI, acute (Primary Dx) Start: 03-14-2024 End: 03-14-2024 ambulatory ALBERTA EDWARD Facility:[facility] Start: 03-14-2024 End: 03-14-2024 Office consultation new/estab patient 80 min Alberta Edward MD Work Phone: Rheumatology Comment on above: Polyarthralgia Start: 03-13-2024 End: 03-13-2024 ambulatory ANGELA SANTOS Facility:[facility] Start: 03-13-2024 End: 03-13-2024 Patient encounter [...] Start: 03-08-2024 End: 03-08-2024 ambulatory JONY MARTELL Facility:[facility] Start: 03-08-2024 End: 03-08-2024 Patient encounter procedure Michelle Roberts APRN.[employer] CH[employer]ER Work Phone: [facility] Comment on above: Nausea (Primary Dx); Diarrhea, unspecified type Start: 12-13-2023 End: 12-14-2023 Emergency department patient visit JONY FREEMAN JASBIR [facility] Start: 12-06-2023 Telephone encounter Ursula shelton APRN.[employer]QUARD [employer] CHANGER Work Phone: [facility] [place] Comment on above: Insurance Authorizat ion ([employer] ) Start: 12-05-2023 ambulatory Ursula Be [employer] SAL[employer]ERSON.[employer] CHANGER Work Phone: [facility] [place] Comment on above: Wyeg[employer] Start: 11-22-2023 End: 11-22-2023 ambulatory Ursula Be [employer]ERSON.[employer] CH[employer]ER Work Phone: [facility] [place] Comment on [...] status Manuela Pearce APRN.CNSilvestre Work Phone: [facility] Start: 11-15-2023 End: 11-15-2023 ambulatory [facility] Facility:[facility] Start: 11-15-2023 End: 11-15-2023 Office outpatient visit 15 minutes Ursula Be APRN.[employer]AC[employer] CH[employer]ER Work Phone: [facility] [place] Comment on above: Morbid obesity with BMI of 50.0-59.9, adult (HCC) (Primary Dx) Start: 09-26-2023 Telephone encounter Jony Martell MD Work Phone: [facility] [place] Comment on above: Insurance Authorizat ion (Metformin ER) Start: 09-23-2023 ambulatory Ursula Be APRN.[employer] CH[employer]ER Work Phone: [facility] [place] Comment on above: Lab work Start: 09-21-2023 End: 09-21-2023 ambulatory [facility] Facility:[facility] Start: 09-06-2023 End: 09-06-[address] [facility] Facility:[facility] Start: 09-06-2023 End: 09-06-2023 Patient encounter procedure Ursula Be APRN.[employer]QU[employer] CHANGER Work Phone: [facility] [place] Comment on above: Wellness examination (Primary Dx); Acquired hypothyroidism; Prediabetes; Polyarthralgia; Elevated sed rate; Vitamin D deficiency; Anemia, unspecified type; Gastroesophageal reflux disease, unspecified whether esophagitis present; Encounter for immunization Start: 09-06-2023 End: 09-06-2023 Patient encounter status Ursula Be APRN.JACQUARD [employer] CHANGER Work Phone: [facility] Work Phone: Start: 04-15-2023 End: 04-15-2023 ambulatory JONY MARTELL Facility: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); Meibomian gland dysfunction (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 Start: 11-25-2022 Admission to [facility] Jony Martell MD Work Phone: [facility] [place] Comment on above: Gastric surgery Start: 11-25-2022 ambulatory Jony Martell MD Work Phone: [facility] [place] Start: 10-08-2022 ambulatory Ursula Be APRN.[employer]ARD LO[employer] CHANGER Work Phone: [facility] [place] Comment on above: Carpool tunnel Start: 08-15-2022 Refill Ursula Be APRN.J[employer]QUARD LO[employer] C[employer] CHANGER Work Phone: [facility] [place] Comment on above: Refill Request; Refi ll Request [employer] Start: 08-13-2022 Telephone encounter Ursula shelton APRN.J[employer]ARD [employer] C[employer] CHANGER Work Phone: [facility] [place] Comment on above: Results Start: 07-01-2022 End: 07-01-2022 Patient encounter procedure Silvestre Arriaga PA-C Work Phone: [facility] [place] Comment on above: Subclinical hypothyr oidism (Primary Dx); Numbness and tingling in right hand; 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); Left hip pain Start: 06-30-2022 ambulatory Ursula Be APRN.CNP Work Phone: [facility] [place] Comment on above: Pain Start: 05-11-2022 Telephone encounter Ursula shelton APRN.JACQUARD LO[employer] C[employer] CHANGER Work Phone: [facility] [place] [place] Comment on above: Opened In Error Start: 05-07-2022 Telephone encounter Ursula shelton APRN.[employer]ACQUARD LOOM C[employer] CHANGER Work Phone: [facility] [place] Comment on above: Results Start: 05-03-2022 End: 05-03-2022 Office outpatient visit 25 minutes Ursula Be APRN.J[employer]ARD LO[employer] C[employer] CHANGER Work Phone: [facility] [place] Comment on above: Hypertension, essent ial (Primary Dx); Prediabetes; Anemia, unspecified type; Acquired hypothyroidism; Polyarthralgia; Class 3 severe obesity without serious comorbidity with body mass index (BMI) of 50.0 to 59.9 in adult, unspecified obesity type (HCC); Vitamin D deficiency; ANDREW (obstructive sleep apnea) Start: 03-24-2022 End: 03-24-2022 Office outpatient visit 15 minutes Ursula Be APRN.JACQUARD LO[employer] C[employer] CHANGER Work Phone: [facility] [place] Comment on above: Hypertension, essent ial (Primary Dx); Panic disorder without agoraphobia Start: 04-24-2021 End: 04-24-2021 Emergency department patient visit DOLORES ZENG MD [facility] Start: 11-07-2017 End: 11-07-2017 Emergency department patient visit Michelle Fam Facility:[facility] Procedures Date Procedure Procedure Detail Performing Clinician Start: 12-13-2023 Urinalysis JONY GROSSMAN Comment on above: Result Comment: URIN ALYSIS Performed By: #### 2 [id number] #### [facility],[address] [place] [address] Start: 09-06-2023 [employer] COVI D-19 VACCINE (2022- SEASON) AGE 12+ YR Ursula Be APRN.JACQUARD LOOM CARD CHANGER Work Phone: Tonsil and adenoid structure (body structure) DOLORES ZENG MD Plan of Treatment Date Care Activity Detail Author Start: 11-21-2028 Screening for malignant neoplasm of cervix Cervical Cancer Screening [facility] Start: 11-26-2024 End: 11-26-2024 Patient encounter procedure 11/26/2024 8:15 AM EDT Office Visit OB/Gynecology [address] [place] [address] Manuela Pearce APRN.CNM [address] [place] [address] Annual OB/Gynecology Comment on above: Annual Start: 11-22-2024 End: 11-22-2024 Patient encounter procedure 11/22/2024 10:45 AM EDT Office Visit OB/Gynecology [address] [place] [address] Manuela Pearce APRN.CNM [address] [place] [address] Annual OB/Gynecology Comment on above: Annual Start: 11-21-2024 BP Controlled (<130/80) BP Controlled (<130/80) [facility] Start: 11-14-2024 Annual PCP Team Chronic Disease Visit Annual PCP Team Chronic Disease Visit [facility] Start: 09-05-2024 Annual PCP Team Chronic Disease Visit Annual PCP Team Chronic Disease Visit [facility] Start: 09-02-2024 Urine microalbumin profile DTaP,Tdap,Td Vaccine (2 - Td or Tdap) [facility] Start: 06-29-2024 End: 06-29-2024 Patient encounter procedure 06/29/2024 8:50 AM EST Office Visit OB/Gynecology [address] [place] [address] Angela Crawford MD [address] [place] [address] weight management follow up OB/Gynecology Comment on above: weight management follow up Start: 06-07-2024 End: 06-07-2024 Patient encounter procedure 06/07/2024 11:00 AM EST Office Visit Neurology [address] [place] [address] Meghann Monsalve APRN.JACQUARD LO[employer] C[employer] CHANGER [address] [place] [address] Morbid obesity with BMI of 50.0-59.9, adult [...] EST Office Visit OB/Gynecology [address] [place] [address] Angela Crawford MD [address] [place], [place] [id number] weight management follow up OB/Gynecology Comment on above: weight management follow up Start: 04-27-2024 End: 04-27-2024 Patient encounter procedure 04/27/2024 1:30 PM EST Office Visit OB/Gynecology [address] [place] [address] Angela Crawford MD [address] [place] [address] weight management follow up OB/Gynecology Comment on above: weight management follow up Start: 04-15-2024 BP Controlled (<130/80) BP Controlled (<130/80) [facility] Start: 03-14-2024 End: 06-13-2024 MAYLIN BY IFA SCREEN MAYLIN BY IFA SCREEN Lab Routine Polyarthralgia Expected: 03/14/2024, Expires: 06/13/2024 [facility] Work Phone: Comment on above: Expected: 03/14/2024, Expires: Start: 03-14-2024 End: 06-13-2024 C reactive protein [Mass/volume] in Serum or Plasma C-REACTIVE PROTEIN Lab Routine Polyarthralgia Expected: 03/14/2024, Expires: 06/13/2024 [facility] Comment on above: Expected: 03/14/2024, Expires: Start: 03-14-2024 End: 06-13-2024 CBC W Auto Differential panel - Blood COMPLETE BLOOD COUNT AND DIFFERENTIAL Lab Routine Polyarthralgia Expected: 03/14/2024, Expires: 06/13/2024 [facility] Comment on above: Expected: 03/14/2024, Expires: Start: 03-14-2024 End: 06-13-2024 Comprehensive metabolic 2000 panel - Serum or Plasma COMPREHENSIVE METABOLIC PANEL Lab Routine Polyarthralgia Expected: 03/14/2024, Expires: 06/13/2024 [facility] Comment on above: Expected: 03/14/2024, Expires: Start: 03-14-2024 End: 06-13-2024 Cyclic citrullinated peptide IgG Ab [Units/volume] in Serum or Plasma CCP ANTIBODY IGG Lab Routine Polyarthralgia Expected: 03/14/2024, Expires: 06/13/2024 [facility] Comment on above: Expected: 03/14/2024, Expires: Start: 03-14-2024 End: 06-13-2024 DNA double strand Ab [Units/volume] in Serum by Immunoassay DNA AB DS + CONF BLD Lab Routine Polyarthralgia Expected: 03/14/2024, Expires: 06/13/2024 [facility] Comment on above: Expected: 03/14/2024, Expires: Start: 03-14-2024 End: 06-13-2024 Erythrocyte sedimentation rate SEDIMENTATION RATE, WESTERGREN Lab Routine Polyarthralgia Expected: 03/14/2024, Expires: 06/13/2024 [facility] Comment on above: Expected: 03/14/2024, Expires: Start: 03-14-2024 End: 06-13-2024 Extractable nuclear Ab panel - Serum ANTI DAKOTA ID Lab Routine Polyarthralgia Expected: 03/14/2024, Expires: 06/13/2024 [facility] Comment on above: Expected: 03/14/2024, Expires: Start: 03-14-2024 End: 06-13-2024 Rheumatoid factor [Units/volume] in Serum or Plasma RHEUMATOID FACTOR Lab Routine Polyarthralgia Expected: 03/14/2024, Expires: 06/13/2024 [facility] Comment on above: Expected: 03/14/2024, Expires: Start: 03-14-2024 End: 03-14-2024 Patient encounter procedure 03/14/2024 9:40 AM EDT Office Visit Rheumatology [address], [place] [id number] Alberta Edward MD [address] [place] [address] Polyarthralgia [M25.50] Rheumatology Comment on above: Polyarthralgia [M25.50] Start: 03-13-2024 End: 06-12-2024 25-hydroxyvitamin D3 [Mass/volume] in Serum or Plasma VITAMIN D 25 HYDROXY Lab Routine Encounter for vitamin deficiency screening Expected: 03/13/2024, Expires: 06/12/2024 [facility] Work Phone: Comment on above: Expected: 03/13/2024, Expires: Start: 03-13-2024 End: 06-12-2024 Comprehensive metabolic 2000 panel - Serum or Plasma COMPREHENSIVE METABOLIC PANEL Lab Routine Screening for diabetes mellitus Screening for metabolic disorder Expected: 03/13/2024, Expires: 06/12/2024 [facility] Comment on above: Expected: 03/13/2024, Expires: Start: 03-13-2024 End: 06-12-2024 Insulin [Units/volume] in Serum or Plasma INSULIN ASSAY BLOOD Lab Routine Screening for diabetes mellitus Expected: 03/13/2024, Expires: 06/12/2024 [facility] Comment on above: Expected: 03/13/2024, Expires: Start: 03-13-2024 End: 03-13-2024 Patient encounter procedure 03/13/2024 10:20 AM EDT Office Visit OB/Gynecology [address] [place], [place] [id number] Angela Crawford MD [address] [place], [place] [id number] Morbid obesity with BMI of 50.0-59.9, adult ([facility]) [E66.01, Z68.43] OB/Gynecology Comment on above: Morbid obesity with BMI of 50.0-59.9, ad ult ([facility]) [E66.01, Z68.43] Start: 02-29-2024 End: 02-29-2024 Patient encounter procedure 02/29/2024 2:00 PM EDT Office Visit Rheumatology [address] [place] [address] [place] [address] [place] [address] Polyarthralgia [M25.50 Rheumatology Comment on above: Polyarthralgia [M25.50 Start: 01-29-2024 Covid-19 Vaccine ( season) Covid-19 Vaccine ( season) [facility] Start: 01-29-2024 Influenza vaccination [facility] Start: 11-22-2023 End: 11-22-2023 Patient encounter procedure 11/22/2023 10:00 AM EDT Office Visit OB/Gynecology [address] [place], [place] [address] Manuela Pearce APRN.[facility] [address] [place] [address] ANNUAL OB/Gynecology Comment on above: ANNUAL Start: 09-06-2023 End: 12-06-2023 25-hydroxyvitamin D3 [Mass/volume] in Serum or Plasma VITAMIN D 25 HYDROXY Lab Routine Vitamin D deficiency Expected: 09/06/2023, Expires: 12/06/2023 [facility] Work Phone: Comment on above: Expected: 09/06/2023, Expires: Start: 09-06-2023 End: 12-06-2023 C reactive protein [Mass/volume] in Serum or Plasma C-REACTIVE PROTEIN (CRP) Lab Routine Polyarthralgia Elevated sed rate Expected: 09/06/2023, Expires: 12/06/2023 [facility] Work Phone: Comment on above: Expected: 09/06/2023, Expires: 4 Start: 09-06-2023 End: 12-06-2023 CBC W Auto Differential panel - Blood CBC + DIFF Lab Routine Anemia, unspecified type Expected: 09/06/2023, Expires: 12/06/2023 [facility] Work Phone: Comment on above: Expected: 09/06/2023, Expires: Start: 09-06-2023 End: 12-06-2023 Erythrocyte sedimentation rate SED RATE WESTERGREN Lab Routine Polyarthralgia Elevated sed rate Expected: 09/06/2023, Expires: 12/06/2023 [facility] Work Phone: Comment on above: Expected: 09/06/2023, Expires: Start: 09-06-2023 End: 12-06-2023 Ferritin [Mass/volume] in Serum or Plasma FERRITIN BLD Lab Routine Anemia, unspecified type Expected: 09/06/2023, Expires: 12/06/2023 [facility] Work Phone: Comment on above: Expected: 09/06/2023, Expires: Start: 09-06-2023 End: 12-06-2023 Hemoglobin A1c in Blood HGB A1C Lab Routine Prediabetes Expected: 09/06/2023, Expires: 12/06/2023 [facility] Work Phone: Comment on above: Expected: 09/06/2023, Expires: Start: 09-06-2023 End: 12-06-2023 Iron and Iron binding capacity panel - Serum or Plasma IRON + TIBC Lab Routine Anemia, unspecified type Expected: 09/06/2023, Expires: 12/06/2023 [facility] Work Phone: Comment on above: Expected: 09/06/2023, Expires: Start: 09-06-2023 End: 12-06-2023 Lipid 1996 panel - Serum or Plasma LIPID PANEL BASIC Lab Routine Prediabetes Expected: 09/06/2023, Expires: 12/06/2023 [facility] Work Phone: Comment on above: Expected: 09/06/2023, Expires: Start: 09-06-2023 End: 12-06-2023 Magnesium [Mass/volume] in Serum or Plasma MAGNESIUM BLD Lab Routine Gastroesophageal reflux disease, unspecified whether esophagitis present Expected: 09/06/2023, Expires: 12/06/2023 [facility] Work Phone: Comment on above: Expected: 09/06/2023, Expires: Start: 09-06-2023 End: 12-06-2023 Thyrotropin [Units/volume] in Serum or Plasma TSH BLD Lab Routine Acquired hypothyroidism Expected: 09/06/2023, Expires: 12/06/2023 [facility] Work Phone: Comment on above: Expected: 09/06/2023, Expires: Start: 09-06-2023 End: 12-06-2023 Thyroxine (T4) free [Mass/volume] in Serum or Plasma T4 FREE/FREE THYROX Lab Routine Acquired hypothyroidism Expected: 09/06/2023, Expires: 12/06/2023 [facility] Work Phone: Comment on above: Expected: 09/06/2023, Expires: 4 Start: 09-06-2023 End: 12-06-2023 Triiodothyronine (T3) [Mass/volume] in Serum or Plasma T3 BLD Lab Routine Acquired hypothyroidism Expected: 09/06/2023, Expires: 12/06/2023 [facility] Work Phone: Comment on above: Expected: 09/06/2023, Expires: Start: 07-26-2023 ANNUAL PCP TEAM CHRONIC DISEASE VISIT ANNUAL PCP TEAM CHRONIC DISEASE VISIT [facility] Start: 07-26-2023 BP CONTROLLED (<130/80) BP CONTROLLED (<130/80) [facility] Start: 07-01-2023 ANNUAL PCP TEAM CHRONIC DISEASE VISIT ANNUAL PCP TEAM CHRONIC DISEASE VISIT [facility] Start: 07-01-2023 BP CONTROLLED (<130/80) BP CONTROLLED (<130/80) [facility] Start: 06-01-2023 PAP TESTING PAP TESTING [facility] Start: 06-01-2023 Screening for malignant neoplasm of cervix Pap Testing [facility] Start: 05-03-2023 ANNUAL PCP TEAM CHRONIC DISEASE VISIT ANNUAL PCP TEAM CHRONIC DISEASE VISIT [facility] Start: 03-24-2023 ANNUAL PCP TEAM CHRONIC DISEASE VISIT ANNUAL PCP TEAM CHRONIC DISEASE VISIT [facility] Start: 01-28-2023 Influenza vaccination [facility] Start: 07-15-2022 COVID-19 VACCINE (#1) COVID-19 VACCINE (#1) [facility] Comment on above: Postponed from 05/15/1989 (Declined at t his time) Start: 07-15-2022 PNEUMOCOCCAL (1 - PCV) PNEUMOCOCCAL (1 - PCV) [facility] Comment on above: Postponed from 1994 (Declined at t his time) Start: 07-15-2022 Urine microalbumin profile DTAP,TDAP,TD (1 - Tdap) [facility] Comment on above: Postponed from 11/14/2007 (Declined at t his time) Start: 07-01-2022 End: 08-31-2022 Thyroglobulin Ab [Units/volume] in Serum or Plasma THYROGLOBULIN AB Lab Routine Subclinical hypothyroidism Expected: 07/01/2022, Expires: 08/31/2022 [facility] Work Phone: Comment on above: Expected: 07/01/2022, Expires: Start: 07-01-2022 End: 08-31-2022 THYROID PEROXIDASE ANTIBODY BLOOD THYROID PEROXIDASE ANTIBODY BLOOD Lab Routine Subclinical hypothyroidism Expected: 07/01/2022, Expires: 08/31/2022 [facility] Work Phone: Comment on above: Expected: 07/01/2022, Expires: Start: 05-03-2022 End: 07-03-2022 25-hydroxyvitamin D3 [Mass/volume] in Serum or Plasma VITAMIN D 25 HYDROXY Lab Routine Vitamin D deficiency Expected: 05/03/2022, Expires: 07/03/2022 [facility] Work Phone: Comment on above: Expected: 05/03/2022, Expires: 3 Start: 05-03-2022 End: 07-03-2022 C reactive protein [Mass/volume] in Serum or Plasma C-REACTIVE PROTEIN (CRP) Lab Routine Polyarthralgia Expected: 05/03/2022, Expires: 07/03/2022 [facility] Work Phone: Comment on above: Expected: 05/03/2022, Expires: 3 Start: 05-03-2022 End: 07-03-2022 CBC W Auto Differential panel - Blood CBC + DIFF Lab Routine Anemia, unspecified type Expected: 05/03/2022, Expires: 07/03/2022 [facility] Work Phone: Comment on above: Expected: 05/03/2022, Expires: 3 Start: 05-03-2022 End: 07-03-2022 Comprehensive metabolic 2000 panel - Serum or Plasma COMP METABOLIC PANEL Lab Routine Hypertension, essential Prediabetes Expected: 05/03/2022, Expires: 07/03/2022 [facility] Work Phone: Comment on above: Expected: 05/03/2022, Expires: 3 Start: 05-03-2022 End: 07-03-2022 Cyclic citrullinated peptide IgG Ab [Units/volume] in Serum or Plasma CCP ANTIBODY IGG Lab Routine Polyarthralgia Expected: 05/03/2022, Expires: 07/03/2022 [facility] Work Phone: Comment on above: Expected: 05/03/2022, Expires: 3 Start: 05-03-2022 End: 07-03-2022 Erythrocyte sedimentation rate SED RATE WESTERGREN Lab Routine Polyarthralgia Expected: 05/03/2022, Expires: 07/03/2022 [facility] Work Phone: Comment on above: Expected: 05/03/2022, Expires: 3 Start: 05-03-2022 End: 07-03-2022 Ferritin [Mass/volume] in Serum or Plasma FERRITIN BLD Lab Routine Anemia, unspecified type Expected: 05/03/2022, Expires: 07/03/2022 [facility] Work Phone: Comment on above: Expected: 05/03/2022, Expires: 3 Start: 05-03-2022 End: 07-03-2022 Hemoglobin A1c in Blood HGB A1C Lab Routine Prediabetes Expected: 05/03/2022, Expires: 07/03/2022 [facility] Work Phone: Comment on above: Expected: 05/03/2022, Expires: 3 Start: 05-03-2022 End: 07-03-2022 Iron and Iron binding capacity panel - Serum or Plasma IRON + TIBC Lab Routine Anemia, unspecified type Expected: 05/03/2022, Expires: 07/03/2022 [facility] Work Phone: Comment on above: Expected: 05/03/2022, Expires: 3 Start: 05-03-2022 End: 07-03-2022 Lipid 1996 panel - Serum or Plasma LIPID PANEL BASIC Lab Routine Prediabetes Expected: 05/03/2022, Expires: 07/03/2022 [facility] Work Phone: Comment on above: Expected: 05/03/2022, Expires: 3 Start: 05-03-2022 End: 07-03-2022 Nuclear Ab [Presence] in Serum by Immunoassay MAYLIN BLOOD Lab Routine Polyarthralgia Expected: 05/03/2022, Expires: 07/03/2022 [facility] Work Phone: Comment on above: Expected: 05/03/2022, Expires: 3 Start: 05-03-2022 End: 07-03-2022 Rheumatoid factor [Units/volume] in Serum or Plasma RHEUMATOID FACTOR BL Lab Routine Polyarthralgia Expected: 05/03/2022, Expires: 07/03/2022 [facility] Work Phone: Comment on above: Expected: 05/03/2022, Expires: 3 Start: 05-03-2022 End: 07-03-2022 Thyrotropin [Units/volume] in Serum or Plasma TSH BLD Lab Routine Acquired hypothyroidism Expected: 05/03/2022, Expires: 07/03/2022 [facility] Work Phone: Comment on above: Expected: 05/03/2022, Expires: 3 Start: 05-03-2022 End: 07-03-2022 Thyroxine (T4) free [Mass/volume] in Serum or Plasma T4 FREE/FREE THYROX Lab Routine Acquired hypothyroidism Expected: 05/03/2022, Expires: 07/03/2022 [facility] Work Phone: Comment on above: Expected: 05/03/2022, Expires: 3 Start: 05-03-2022 End: 07-03-2022 Triiodothyronine (T3) [Mass/volume] in Serum or Plasma T3 BLD Lab Routine Acquired hypothyroidism Expected: 05/03/2022, Expires: 07/03/2022 [facility] Work Phone: Comment on above: Expected: 05/03/2022, Expires: 3 Start: 06-01-2021 Screening for malignant neoplasm of cervix Cervical Cancer Screening [facility] Start: 2018 HPV TESTING HPV TESTING [facility] Start: 2018 Screening for malignant neoplasm of cervix HPV Testing [facility] Start: 11-14-2007 Urine microalbumin profile [facility] Start: 2006 BP CONTROLLED (<130/80) BP CONTROLLED (<130/80) [facility] Start: 05-15-1989 COVID-19 VACCINE (#1) COVID-19 VACCINE (#1) [facility] Start: 1988 HEPATITIS B (1 of 3 - 3-dose series) HEPATITIS B (1 of 3 - 3-dose series) [facility] Start: 1988 Hepatitis B Vaccine (1 of 3 - 3-dose series) Hepatitis B Vaccine (1 of 3 - 3-dose series) [facility] COVID & INFLUENZA A/ B & RSV PCR, ROUTINE COVID & INFLUENZA A/B & RSV PCR, ROUTINE Microbiology Routine URI, acute Ordered: 03/17/2024 [facility] Work Phone: Comment on above: Ordered: 03/17/2024 End: 03-13-2025 HOME SLEEP APNEA TEST (HSAT) HOME SLEEP APNEA TEST (HSAT) Procedures Routine Morbid obesity with BMI of 50.0-59.9, adult (HCC) ANDREW (obstructive sleep apnea) Elevated blood pressure reading without diagnosis of hypertension Malaise and fatigue 1 Occurrences starting 03/13/2024 until 03/13/2025 [facility] Comment on above: 1 Occurrences starting 03/13/2024 until 03/13/2025 PAP TEST PAP TEST Lab Jennifer gipson Screening for cervical cancer Encounter for screening for human papillomavirus (HPV) 11/22/2023 10:59 AM EDT [facility] Work Phone: End: 06-02-2023 PAP TITRATION PSG (CPAP, BIPAP, ASV) PAP TITRATION PSG (CPAP, BIPAP, ASV) Procedures Routine ANDREW (obstructive sleep apnea) 1 Occurrences starting 05/03/2022 until 06/02/2023 [facility] Work Phone: Comment on above: 1 Occurrences starting 05/03/2022 until 06/02/2023 End: 04-14-2025 XR Foot - bilateral AP and Lateral and oblique XR FOOT GENERAL 3V AP/LAT/OBL BILATERAL Radiology Routine Polyarthralgia 1 Occurrences starting 03/14/2024 until 04/14/2025 [facility] Comment on above: 1 Occurrences starting 03/14/2024 until 04/14/2025 End: 04-14-2025 XR Hand - bilateral PA and Lateral and Oblique XR HAND GENERAL 3V PA/LAT/OBL BILATERAL Radiology Routine Polyarthralgia 1 Occurrences starting 03/14/2024 until 04/14/2025 [facility] Comment on above: 1 Occurrences starting 03/14/2024 until 04/14/2025 End: 04-13-2025 XR Knee - bilateral 4 Views XR KNEE GENERAL 4V AP BOTH/PA BOTH/LAT/MERC BILATERAL Radiology Routine Polyarthralgia 1 Occurrences starting 03/14/2024 until 04/13/2025 [facility] Comment on above: 1 Occurrences starting 03/14/2024 until 04/13/2025 End: 04-13-2025 XR Lumbar spine 3 Views XR LUMBAR GENERAL 3V AP/LAT/L5-S1 Radiology Routine Polyarthralgia 1 Occurrences starting 03/14/2024 until 04/13/2025 [facility] Comment on above: 1 Occurrences starting 03/14/2024 until 04/13/2025 End: 04-14-2025 XR Sacroiliac Joint Views XR SACROILIAC JOINTS 2V AP PELVIS/FERGUESON Radiology Routine Polyarthralgia 1 Occurrences starting 03/14/2024 until 04/14/2025 [facility] Comment on above: 1 Occurrences starting 03/14/2024 until 04/14/2025 [facility] Immunizations Immunization Date Immunization Notes Care Provider Alexis mccann 09-06-2023 COVID-19 vaccine, ag e 12+ yr, season ([employer]) Ursula Be APRN.CNP Work Phone: [facility] 02-24-2022 influenza, seasonal, injectable Osmani Marroquin MD Work Phone: [facility] 02-24-2022 influenza virus vacc ine, unspecified formulation Ursula Be [employer] SALESPERSON.JACQUARD LOOM CARD CHANGER Work Phone: [facility] 06-09-2019 influenza, injectabl e, quadrivalent, contains preservative Ursula Be [employer] SALESPERSON.[employer]QUARD LO[employer] C[employer] CHANGER Work Phone: [facility] 05-12-2015 influenza, injectabl e, quadrivalent, preservative free Osmani Marroquin MD Work Phone: [facility] 09-02-2014 tetanus toxoid, redu alisha diphtheria toxoid, and acellular pertussis vaccine, adsorbed Osmani Marroquin MD Work Phone: [facility] Payers Date Payer Category Payer Unknown [id number] 2017 Unknown 2017 Medicaid [id number] 1988 Unknown [id number] Social History Date Type Detail Facility Start: 10-17-2020 Light tobacco smoker (finding) [facility] Assigned At [facility] Start: 03-24-2022 [facility] Start: 03-24-2022 End: 03-08-2024 Tobacco use and exposure Smokeless tobacco non-user [facility] Start: 03-24-2022 End: 03-17-2024 Alcohol intake Current drinker of alcohol (finding) [facility] Start: 03-24-2022 Tobacco Comment half a pack daily Cl tulio [facility] Start: 11-27-2014 Alcohol Comment rarely [facility] Start: 1988 Sex Assigned At Not on file [facility] Start: 05-03-2022 End: 03-08-2024 Tobacco smoking status NHIS Ex-smoker [facility] Work Phone: End: 01-28-2022 History of tobacco use Current smoker [facility] Work Phone: End: 01-28-2022 History of tobacco use Cigarette Smoker [facility] Work Phone: Start: 01-20-2023 End: 03-13-2024 History of Social function [facility] Start: 01-20-2023 End: 03-13-2024 Tobacco use panel [facility] Adult Depression Screening Assessment 0 [facility] Clinical Notes 12-09-2018 to 03-17-2024 Osmani Marroquin [...] Marroquin MD documented in this encounter [facility] 10-16-2024 History of Presen t illness Narrative Images from the original note were not included. 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 08/2023 Sed [...] Impression: IMPRESSION: No evidence of active disease. Appellate Conferee: VIKI Transcribe Date/Time: Apr 02 2015 10:41A ... Last XR Cervical Spine - Impression Only No resulted procedures found. Health Maintenance Current Immunizations Reviewed on 07/19/2015 Name Date COVID-19 vaccine ([employer]) 09/06/2023 influenza (IIV4) vaccine 06/09/2019 Physical Exam VITAL SIGNS: BP 132/74 Pulse 66 Wt 343 lb 14.7 oz (156.0kg) LMP 02/28/2024 GENERAL APPEARANCE: Well groomed. In no distress. SKIN: [place] scaly lesions over scalp with no erythema [...] which included preparing to see the patient, [id number] patient care, completing clinical documentation, obtaining and/or reviewing separately obtained history, performing a medically appropriate examination, counseling and educating the patient/family/caregiver, and ordering medications, tests, or procedures. This note was partially generated with the assistance of Solavei voice recognition software. An attempt was made to correct any dictation errors however there may be some incorrect words, spellings, and punctuation. Alberta Edward MD [facility] Rheumatology Associate Staff [facility] Construction Management Instructorinspector balance truing [facility] documented in this encounter [facility] 03-14-2024 Note HNO ID: [id number] Author: ALBERTA EDWARD MD Service: ? 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 08/2023 Sed [...] Substance Use Topics (more content not included)... [facility] 03-13-2024 Note HNO ID: [id number] Author: ANGELA CRAWFORD MD Service: ? Author [...] - D - 5-6pm eats large portions- venezuelan meals- tacos, burritos, meatloaf, lasagna, roast, green beans S - typically Fluids: milk (whole milk)- 16oz glass 3x day, 16oz water bottle 4-7 per day Bedtime -7-9pm Quality of diet: 24hr recall suggests in between diet. Characterization of diet:Unstructured, excessive cravings, evening snacking, increased consumption of sugar sweetened beverages (milk), and skip meals. 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 anti-obesity medications Phentermine. Diet and exercise Exercise: Regular exercise: walking Strength/resistance exercise:no Barriers to regular exercise? yes - joint pain and skin pain Work-related activity:Active. 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 [facility] 03-13-2024 History of Presen t illness Narrative [...] - D - 5-6pm eats large portions- venezuelan meals- tacos, burritos, meatloaf, lasagna, roast, green beans S - typically Fluids: milk (whole milk)- 16oz glass 3x day, 16oz water bottle 4-7 per day Bedtime -7-9pm Quality of diet: 24hr recall suggests in between diet. Characterization of diet:Unstructured, excessive cravings, evening snacking, increased consumption of sugar sweetened beverages (milk), and skip meals. 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 anti-obesity medications Phentermine. Diet and exercise Exercise: Regular exercise: walking Strength/resistance exercise:no Barriers to regular exercise? yes - joint pain and skin pain Work-related activity:Active. 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 -- We discussed several strategies [...] training and cardiovascular exercise is the best fpc plan. An overall goal of 150-200 minutes [...] I will send chart to make sure patient service coordinator follows up - Discussed not candidate for phentermine. Consider Trulicity / topiramate. Reviewed both. Will need BC for Topiramate- pt prefers POP - referral to nutrition placed- [facility] referral placed and sleep [...] which included preparing to see the patient, [id number] patient care, completing clinical documentation, obtaining and/or reviewing separately obtained history, performing a medically appropriate examination, counseling and educating the patient/family/caregiver, and ordering medications, tests, or procedures. Angela Fonseca MD, FACOG, DABOM documented in this encounter [facility] 03-13-2024 Instructions Angela Crawford MD - 03/13/2024 [...] slots. This should not be done on [facility] as you will not be scheduled [...] that affects nearly one-third of the adult [place] population (approximately 60 million). The number of overweight and obese Americans has continued to increase since 1960, a trend that is not slowing down. Today, 64.5 percent of adult Americans (about 127 million) are categorized as being overweight or obese. Each year, obesity causes at least 300,000 excess deaths in the [place] and healthcare costs of [place] adults with obesity amount to approximately $100 [...] the gallbladder, breast, uterus, cervix, or ovaries [email or web address] - Eat primarily whole foods. Limit carbs, [...] after meal. documented in this encounter [facility] 03-08-2024 Note HNO ID: [id number] Author: MICHELLE ROBERTS APRN.JACQUARD LOOM CARD CHANGER Service: ? Author Type: Nurse Practitioner Type: [...] take them at this time. Michelle Roberts APRN.[facility] 03-08-2024 History of Presen t illness Narrative [...] Roberts APRN.CNP documented in this encounter [facility] 12-06-2023 Telephone encounter Note Noted. Ursula Be APRN.CNP [facility] 12-06-2023 Miscellaneous Notes Noted. Ursula Be APRN.CNP Previous message from 11/18 not sent to [place]. Medicaid does not cover any weight loss medication. Patient was notified by phone and through mychart not covered. Ramona Bone MA See pt MC message regarding [employer]. Have we received word from insurance yet? Please advise. Good Pacheco LPN documented in this encounter [facility] 12-06-2023 Telephone encounter Note Previous message from 11/18 not sent to [place]. Medicaid does not cover any weight loss medication. Patient was notified by phone and through mychart not covered. Ramona Bone MA [facility] 12-06-2023 Telephone encounter Note See pt MC message regarding Wegov[employer]. Have we received word from insurance yet? Please advise. Good Pacheco LPN [facility] 11-22-2023 Note HNO ID: [id number] Author: MANUELA PEARCE APRN.SALVADOR Service: ? Author Type: Legal Activity Adjudicator Type: Progress Notes Filed: 11/22/2023 11:01 Note Text: Sharepoint Engineer offered: Patient declines. Swathi is a 33 year old who presents for an annual gynecologic exam without complaints. Working with primary care for weight loss and weight management. 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 Was in halfway for 6 months 10 days after delivery. [...] L1 SAB6 IAB0 Ectopic0 Multiple0 Live Births1 Carport Erector History LMP: 10/31/2023 (Approximate), Having periods Age at Menarche: Age at First : Age at Menopause: Carport Erector History Comments: Sexual Activity: Not Currently; Male; [...] external genitalia normal, normal Bartholin's glands, urethra, [place]'s glands, no vulvar lesions, no cervical lesions, [...] D supplementation info (more content not included)... [facility] 11-22-2023 History of Presen t illness Narrative Sharepoint Engineer offered: Patient declinesAmmon Echevarria is a 33 year old who presents for an annual gynecologic exam without complaints. Working with primary care for weight loss and weight management. 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 Was in halfway for 6 months 10 days after delivery. [...] L1 SAB6 IAB0 Ectopic0 Multiple0 Live Births1 Carport Erector History LMP: 10/31/2023 (Approximate), Having periods Age at Menarche: Age at First : Age at Menopause: Carport Erector History Comments: Sexual Activity: Not Currently; Male; [...] external genitalia normal, normal Bartholin's glands, urethra, [place]'s glands, no vulvar lesions, no cervical lesions, [...] Pearce APRN.CNM documented in this encounter [facility] 11-15-2023 Instructions Ursula Be APRN.CNP - 11/15/2023 10:17 AM EDT Schedule with [facility]. documented in this encounter [facility] 11-15-2023 Note HNO ID: [id number] Author: URSULA BE APRN.CNP Service: ? Author [...] discuss referral to weight management at [facility]. PAST MEDICAL HISTORY: PAST MEDICAL HISTORY [...] ML SUBCUTANEOUS PEN INJECTOR - CONSULT TO [facility] Discussed treatment plan and patient voices understanding. Patient's questions answered appropriately. Medications and potential side effects were discussed and patient voices understanding. Return to the office as scheduled or as needed f (more content not included)... [facility] 11-15-2023 History of Presen t illness Narrative [...] ML SUBCUTANEOUS PEN INJECTOR - CONSULT TO [facility] Discussed treatment plan and patient voices understanding. Patient's questions answered appropriately. Medications and potential side effects were discussed and patient voices understanding. Return to the office as scheduled or as needed for worsening/no improvement. Ursula Be APRN.MICHELLE documented in this encounter [facility] 09-27-2023 Telephone encounter Note The following approved medication requests have been transmitted electronically. Requested Prescriptions Signed Prescriptions Disp Refills metFORMIN (GLUCOPHAGE) 500 mg tablet 30 tablet 5 Sig: Take 1 tablet by mouth daily with breakfast. Authorizing Provider: JONY MARTELL MA [facility] 09-27-2023 Miscellaneous Notes The following approved medication [...] Bone MA documented in this encounter [facility] 09-26-2023 Telephone encounter Note Insurance will not pay for metformin ER till trail/failure of metformin. Please send Cancelled out metformin ER. Ramona Bone MA [facility] 09-23-2023 Telephone encounter Note See pt message. Good Pacheco LPN [facility] 09-23-2023 Miscellaneous Notes See pt message. Good Pacheco LPN documented in this encounter [facility] 09-06-2023 Instructions Ursula Be APRN.JACQUARD LOOM CARD CHANGER - 09/06/2023 9:19 AM EDT Stop the naproxen. Start the celebrex. Start the ear drops (let me know if not covered by insurance). Get the fasting labwork. Health Promotion: - Eat healthy -- go to i[employer]ica.gov to get started - Have a yearly [...] Wear sunscreen documented in this encounter [facility] 09-06-2023 Note HNO ID: [id number] Author: URSULA BE APRN.JACQUARD LOOM CARD CHANGER Service: ? Author Type: Nurse Practitioner Type: [...] helping. Wrists and back. 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 [facility] 09-06-2023 History of Presen t illness Narrative [...] helping. Wrists and back. 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 COVID-19 VACCINE (2022- SEAS[place]) AGE 12+ YR Discussed treatment plan and patient voices understanding. Patient's questions answered appropriately. Medications and potential side effects were discussed and patient voices understanding. Return to the office as scheduled or as needed for worsening/no improvement. Ursula Be APRN.JACQUARD LOOM CARD CHANGER documented in this encounter [facility] 04-15-2023 Note HNO ID: [id number] Author: Paolo Magaña APRN.MICHELLE Service: ? Author [...] No chemosis, exud (more content not included)... [facility] 04-15-2023 History of Presen t illness Narrative [...] of care. This note was generated using Solavei software. It may contain errors in wording, punctuation, or spelling. Paolo Magaña APRN.MICHELLE documented in this encounter [facility] 03-14-2023 Miscellaneous Notes Patient has been identified [...] MARTITA Neely. documented in this encounter [facility] 01-20-2023 History of Presen t illness Narrative [...] 10:37 AM documented in this encounter [facility] 08-18-2022 Miscellaneous Notes Appt scheduled 09/09. Referral [...] of this? documented in this encounter [facility] 08-16-2022 Miscellaneous Notes Component Latest Ref Rng & Units 05/05/2022 TSH 0.270 - 4.200 mIU/L 4.350 (H) Free T4 0.9 - 1.7 ng/dL 1.0 T3 79 - 165 ng/dL 140 LOV07/26/22 documented in this encounter [facility] 07-01-2022 Instructions Silvestre Arriaga PA-C - 07/01/2022 4:56 PM EST Myofascial release as sown. See sheet on carpal tunnel and hip exercises. documented in this encounter [facility] 07-01-2022 History of Presen t illness Narrative 31 year old female with c/o Right wrist and arm pain over a couple of weeks, gradually getting worse. About 2 months ago had similar pain sa Ursula Be CNP who started gabapentin which helped. [facility] alcohol recovery at 180 ETOH [...] Arriaga PA-C documented in this encounter [facility] 07-01-2022 Miscellaneous Notes Patient calls and scheduled [...] of us documented in this encounter [facility] 05-28-2022 Miscellaneous Notes This encounter was opened in error. documented in this encounter [facility] 05-11-2022 Miscellaneous Notes See MC message. Pt [...] Be APRN.MICHELLE documented in this encounter [facility] 05-03-2022 Instructions Ursula Be APRN.CNP - 05/03/2022 12:07 PM EST Get fasting labs. Start the naproxen twice daily w/ food. Schedule sleep study. Schedule with bariatrics. documented in this encounter [facility] 05-03-2022 History of Presen t illness Narrative [...] some labwork. She has been seeing a ux architect and recommending labwork. Increased pain. Refers that [...] consider bariatric surgery. She is meeting w/ ux architect and working on food choices. She is [...] Be APRN.MICHELLE documented in this encounter [facility] 03-24-2022 Instructions Ursula Be APRN.CNP - 03/24/2022 12:17 PM EDT Start the propranolol twice daily. Recheck in 1 month. Sooner if needed. documented in this encounter [facility] 03-24-2022 History of Presen t illness Narrative [...] APRN.MICHELLE This note was partially generated using Solavei voice recognition system. Note was reviewed for accuracy. There may be minor misspellings or grammar miscues with Solavei voice recognition. documented in this encounter [facility] 12-09-2018 History of Past i llness Narrative Problem Noted Date Resolved Date Excessive growth affec ting management of mother, antepartum 12/09/2018 01/11/2019 documented as of this encounter (statuses as of 03/24/2022) [facility] History of Past illness Narrative* Problem Noted Date Resolved Date Excessive growth affec ting management of mother, antepartum 12/09/2018 01/11/2019 documented as of this encounter (statuses as of 05/04/2022) [address] History of Past illness Narrative* Problem Noted Date Resolved Date Excessive growth affec ting management of mother, antepartum 12/09/2018 01/11/2019 documented as of this encounter (statuses as of 05/11/2022) [address] History of Past illness Narrative* Problem Noted Date Resolved Date Excessive growth affec ting management of mother, antepartum 12/09/2018 01/11/2019 documented as of this encounter (statuses as of 06/02/2022) [address] History of Past illness Narrative* Problem Noted Date Resolved Date Excessive growth affec ting management of mother, antepartum 12/09/2018 01/11/2019 documented as of this encounter (statuses as of 07/01/2022) [address] History of Past illness Narrative* Problem Noted Date Resolved Date Excessive growth affec ting management of mother, antepartum 12/09/2018 01/11/2019 documented as of this encounter (statuses as of 07/02/2022) [address] History of Past illness Narrative* Problem Noted Date Resolved Date Excessive growth affec ting management of mother, antepartum 12/09/2018 01/11/2019 documented as of this encounter (statuses as of 08/16/2022) [address] History of Past illness Narrative* Problem Noted Date Resolved Date Excessive growth affec ting management of mother, antepartum 12/09/2018 01/11/2019 documented as of this encounter (statuses as of 08/16/2022) [address] History of Past illness Narrative* Problem Noted Date Resolved Date Excessive growth affec ting management of mother, antepartum 12/09/2018 01/11/2019 documented as of this encounter (statuses as of 08/19/2022) [address] History of Past illness Narrative* Problem Noted Date Resolved Date Excessive growth affec ting management of mother, antepartum 12/09/2018 01/11/2019 documented as of this encounter (statuses as of 10/09/2022) [address] History of Past illness Narrative* Problem Noted Date Resolved Date Excessive growth affec ting management of mother, antepartum 12/09/2018 01/11/2019 documented as of this encounter (statuses as of 11/25/2022) [facility] History of Past illness Narrative* Problem Noted Date Diagnosed Date Resolved Date Excessive growth affec ting management of mother, antepartum 12/09/2018 01/11/2019 documented as of this encounter (statuses as of 01/20/2023) [facility] History of Past illness Narrative* Problem Noted Date Diagnosed Date Resolved Date Excessive growth affec ting management of mother, antepartum 12/09/2018 01/11/2019 documented as of this encounter (statuses as of 03/14/2023) [facility] History of Past illness Narrative* Problem Noted Date Diagnosed Date Resolved Date Excessive growth affec ting management of mother, antepartum 12/09/2018 01/11/2019 documented as of this encounter (statuses as of 04/15/2023) [facility] History of Past illness Narrative* Problem Noted Date Diagnosed Date Resolved Date Excessive growth affec ting management of mother, antepartum 12/09/2018 01/11/2019 documented as of this encounter (statuses as of 09/07/2023) [facility] + Plan note No data available for this section [facility] Evaluation note* Diagnosis Hypertension, essential- Primary Unspecified essential hypertension Panic disorder without agoraphobia documented in this encounter [facility] note* Diagnosis Hypertension, essential- Primary Unspecified [...] apnea (adult) (pediatric) documented in this encounter [facility] note* Diagnosis Vitamin D deficiency- Primary Unspecified vitamin D deficiency [facility]* Diagnosis OPENED IN ERROR- Primary To allow closing an encounter opened in error (used in SmartSet) documented in this encounter [facility] note* Diagnosis Subclinical hypothyroidism- Primary Other specified acquired hypothyroidism Numbness and tingling in right hand Disturbance of skin sensation 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) Other and unspecified alcohol dependence, unspecified drinking behavior Left hip pain Pain in joint, pelvic region and thigh [facility] Diagnosis Acquired hypothyroidism Unspecified hypothyroidism [facility] Diagnosis Carpal tunnel syndrome, bilateral- Primary Carpal tunnel syndrome [facility] Diagnosis 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 [facility] Diagnosis Acute conjunctivitis of right eye, unspecified acute conjunctivitis type- Primary [facility] Diagnosis Wellness examination- Primary Acquired hypothyroidism Unspecified hypothyroidism Prediabetes Other abnormal glucose Polyarthralgia Pain in joint, multiple sites Elevated sed rate Elevated sedimentation rate Vitamin D deficiency Unspecified vitamin D deficiency Anemia, unspecified type Gastroesophageal reflux disease, unspecified whether esophagitis present Encounter for immunization Need for other specified prophylactic vaccination against single bacterial disease [facility] Diagnosis Prediabetes- Primary Other abnormal glucose Polyarthralgia Pain in joint, multiple sites [facility]* Diagnosis Prediabetes- Primary Other abnormal glucose [facility] Diagnosis Morbid obesity with BMI of 50.0-59.9, adult (HCC)- Primary Morbid obesity documented in this encounter [facility] note* Diagnosis Encounter for gynecological examination [...] type (HCC) [facility] Diagnosis Mood disorder (HCC)- Primary Unspecified episodic mood disorder Anxiety Anxiety state, unspecified Panic attack Panic disorder without agoraphobia Morbid obesity (HCC) Morbid obesity Routine health maintenance Routine general medical examination at a health care facility Back ache Backache, unspecified Depression Depressive disorder, not elsewhere classified Nausea- Primary Nausea alone Diarrhea, unspecified type [facility] Diagnosis Mood disorder (HCC)- Primary Unspecified [...] (HCC) Morbid obesity documented in this encounter [facility] note* Diagnosis Mood disorder (HCC)- Primary Unspecified episodic mood disorder Anxiety Anxiety state, unspecified Panic attack Panic disorder without agoraphobia Morbid obesity (HCC) Morbid obesity Routine health maintenance Routine general medical examination at a health care facility Back ache Backache, unspecified Depression Depressive disorder, not elsewhere classified Polyarthralgia Pain in joint, multiple sites documented in this encounter [facility] note* Diagnosis Mood disorder (HCC)- Primary Unspecified episodic mood disorder Anxiety Anxiety state, unspecified Panic attack Panic disorder without agoraphobia Morbid obesity (HCC) Morbid obesity Routine health maintenance Routine general medical examination at a health care facility Back ache Backache, unspecified Depression Depressive disorder, not elsewhere classified URI, acute- Primary Acute upper respiratory infections of unspecified site [facility] No data available for this section [facility] Reason for referral (narrative)* Diagnostic Procedure Only (Routine) - New Request Specialty Diagnoses / Procedures Referred By Brianna t Referred To Contact XR IMAGING Diagnoses Polyarthralgia Procedures XR SACROILIAC JOINTS 2V AP PELVIS/FERGUESON RADIOLOGIC EXAMINATION SACROILIAC JNTS <3 VIEWS Alberta Edward MD [address] [place] [address] [place] [address] Referral ID Status Reason Start Date Expiration Date Visits Requested Visits Authorized [id number] New Request Auto-Generat ed Referral 4 04/13/2025 1 1 * Diagnostic Procedure Only (Routine) - New Request Specialty Diagnoses / Procedures Referred By Contac t Referred To Contact XR IMAGING Diagnoses Polyarthralgia Procedures XR LUMBAR GENERAL 3V AP/LAT/L5-S1 RADEX SPINE LUMBOSACRAL 2/3 VIEWS Alberta Edward MD [address] [place] [address] [place] [address] Referral ID Status Reason Start Date Expiration Date Visits Requested Visits Authorized [id number] New Request Auto-Generat ed Referral 4 04/13/2025 1 1 * Diagnostic Procedure Only (Routine) - New Request Specialty Diagnoses / Procedures Referred By Contac t Referred To Contact XR IMAGING Diagnoses Polyarthralgia Procedures XR KNEE GENERAL 4V AP BOTH/PA BOTH/LAT/MERC BILATERAL RADIOLOGIC EXAM KNEE COMPLETE 4/MORE VIEWS Alberta Edward MD [address] [place] [address] Xr Imaging [facility] Referral ID Status Reason Start Date Expiration Date Visits Requested Visits Authorized [id number] New Request Auto-Generat ed Referral 4 04/13/2025 1 1 * Diagnostic Procedure Only (Routine) - New Request Specialty Diagnoses / Procedures Referred By Contac t Referred To Contact XR IMAGING Diagnoses Polyarthralgia Procedures XR HAND GENERAL 3V PA/LAT/OBL BILATERAL RADEX HAND MINIMUM 3 VIEWS Alberta [facility] [address] [facility] [place] [id number] [place] [address] Referral ID Status Reason Start Date Expiration Date Visits Requested Visits Authorized [id number] New Request Auto-Generat ed Referral 4 04/13/2025 1 1 * Diagnostic Procedure Only (Routine) - New Request Specialty Diagnoses / Procedures Referred By Brianna tong Referred To Contact XR IMAGING Diagnoses Polyarthralgia Procedures XR FOOT GENERAL 3V AP/LAT/OBL BILATERAL RADEX FOOT COMPLETE MINIMUM 3 VIEWS Alberta Edward MD [address] [place] [address] Xr Imaging [place] [address] Referral ID Status Reason Start Date Expiration Date Visits Requested Visits Authorized [id number] New Request Auto-Generat ed Referral 4 04/13/2025 1 1 [facility] Summary Purpose Family History No Family History [...] THERAPY MEDICAL NUTRITION ASSMT&IVNTJ INDIV EACH 15 TN Angela Crawford MD [address] [place] [address] Referral ID Status Reason Start Date Expiration Date Visits Requested Visits Authorized [id number] Authorized PCP Requested Referral 4 03/13/2025 1 4 Specialty Diagnoses / Procedures Referred By Brianna tong Referred To Contact Diagnoses Elevated hemoglobin A1c Malaise and fatigue ANDREW (obstructive sleep apnea) Elevated cholesterol Elevated blood pressure reading without diagnosis of hypertension Morbid obesity with BMI of 50.0-59.9, adult (HCC) Procedures CONSULT [facility] OFFICE/OUTPATIENT NEW HIGH MDM 60 MINUTES Angela Crawford MD [address] [place] [address] Referral ID Status Reason Start Date Expiration Date Visits Requested Visits Authorized [id number] Authorized PCP Requested Referral 4 03/13/2025 1 1 Specialty Diagnoses / Procedures Referred By Contac t Referred To Contact Diagnoses Morbid obesity with BMI of 50.0-59.9, adult (HCC) ANDREW (obstructive sleep apnea) Elevated blood pressure reading without diagnosis of hypertension Malaise and fatigue Procedures CONSULT TO SLEEP MEDICINE - ADULT OFFICE/OUTPATIENT NEW HIGH MDM 60 MINUTES Angela Crawford MD [address] [place] [address] Referral ID Status Reason Start Date Expiration Date Visits Requested Visits Authorized [id number] Authorized PCP Requested Referral 4 03/13/2025 1 1 Specialty Diagnoses / Procedures Referred By Contac t Referred To Contact [facility] Diagnoses Morbid obesity with BMI of 50.0-59.9, adult (HCC) ANDREW (obstructive sleep apnea) Elevated blood pressure reading without diagnosis of hypertension Malaise and fatigue Procedures HOME SLEEP APNEA TEST (HSAT) SLEEP STD AIRFLOW HRT RATE&O2 SAT EFFORT UNATT Angela Crawford MD [address] [place] [address] [facility] [address] [place] [address] Referral ID Status Reason Start Date Expiration Date Visits Requested Visits Authorized [id number] New Request Auto-Generat ed Referral 4 03/13/2025 1 1 Specialty Diagnoses / Procedures Referred By Contac t Referred To Contact Diagnoses Morbid obesity with BMI of 50.0-59.9, adult (HCC) Procedures CONSULT TO [facility] OFFICE/OUTPATIENT NEW [facility] 60 MINUTES Ursula Be APRN.JACQUARD LOOM CARD CHANGER [address] [place] [address] Referral ID Status Reason Start Date Expiration Date Visits Requested Visits Authorized [id number] Authorized PCP Requested Referral Auto-Generate d Referral 11/15/2023 11/14/2024 1 1 Specialty Diagnoses / Procedures Referred By Contac t Referred To Contact Rheumatology Diagnoses Polyarthralgia Procedures CONSULT TO RHEUM/IMMUN DISEASE OFFICE/OUTPATIENT [facility] 60 MINUTES Ursula Be APRN.JACQUARD LOOM CARD CHANGER [address] [place] [address] Referral ID Status Reason Start Date Expiration Date Visits Requested Visits Authorized [id number] Authorized PCP Requested Referral 09/23/2023 09/22/2024 1 1 Specialty Diagnoses / Procedures Referred By Contac t Referred To Contact Diagnoses Prediabetes Ursula Be APRN.JACQUARD [employer] CARD CHANGER [address] [place] [address] Referral ID Status Reason Start Date Expiration Date V isits Requested Visits Authorized [id number] Pending Review 1 1 Specialty Diagnoses / Procedures Referred By Contac t Referred To Contact Orthopedics Diagnoses Carpal tunnel syndrome, bilateral Procedures CONSULT TO ORTHOPAEDICS OFFICE/OUTPATIENT [facility] 60-74 MINUTES Ursula Be APRN.JACQUARD LOOM CARD CHANGER [address] [place] [address] Referral ID Status Reason Start Date Expiration Date Visits Requested Visits Authorized [id number] Pending Review PCP Requested Referral 08/13/2022 08/13/2023 1 1 Specialty Diagnoses / Procedures Referred By Contac t Referred To Contact Diagnoses Class 3 severe obesity without serious comorbidity with body mass index (BMI) of 50.0 to 59.9 in adult, unspecified obesity type (HCC) Procedures CONSULT [facility] OFFICE/OUTPATIENT [facility] 60-74 MINUTES Ursula Be APRN.JACQUARD LO[employer] CARD CHANGER [address] [place] [address] Referral ID Status Reason Start Date Expiration Date Visits Requested Visits Authorized [id number] Authorized PCP Requested Referral 05/03/2022 05/03/2023 1 1 Additional Source Comments INFORMATION SOURCE (unrecogn ized section and content) DATE CREATED AUTHOR 11/15/2017 [facility] DATE CREATED AUTHOR AUTHOR'S ORGANIZ ATION 10/24/[facility] DATE CREATED AUTHOR AUTHOR'S ORGANIZ ATION 12/17/2023 [facility] DATE CREATED AUTHOR AUTHOR'S ORGANIZ ATION 03/15/2024 [facility] Source Comments (unrecognize d section and content) In the event this informatio n is protected by the Federal Confidentiality of Alcohol and Drug Abuse Patient Records regulations: The Federal rules restrict any use of the information to criminally investigate or prosecute any alcohol or drug abuse patient.[facility] the event this information is protected by the Federal Confidentiality of Alcohol and Drug Abuse Patient Records regulations: The Federal rules restrict any use of the information to criminally investigate or prosecute any alcohol or drug abuse patient.[facility] the event this information is protected by the Federal Confidentiality of Alcohol and Drug Abuse Patient Records regulations: The Federal rules restrict any use of the information to criminally investigate or prosecute any alcohol or drug abuse patient.[facility] the event this information is protected by the Federal Confidentiality of Alcohol and Drug Abuse Patient Records regulations: The Federal rules restrict any use of the information to criminally investigate or prosecute any alcohol or drug abuse patient.[facility] the event this information is protected by the Federal Confidentiality of Alcohol and Drug Abuse Patient Records regulations: The Federal rules restrict any use of the information to criminally investigate or prosecute any alcohol or drug abuse patient.[facility] the event this information is protected by the Federal Confidentiality of Alcohol and Drug Abuse Patient Records regulations: The Federal rules restrict any use of the information to criminally investigate or prosecute any alcohol or drug abuse patient.[facility] Center[facility] the event this information is protected by the Federal Confidentiality of Alcohol and Drug Abuse Patient Records regulations: The Federal rules restrict any use of the information to criminally investigate or prosecute any alcohol or drug abuse patient.[facility] Center[facility] the event this information is protected by the Federal Confidentiality of Alcohol and Drug Abuse Patient Records regulations: The Federal rules restrict any use of the information to criminally investigate or prosecute any alcohol or drug abuse patient.[facility] Center[facility] the event this information is protected by the Federal Confidentiality of Alcohol and Drug Abuse Patient Records regulations: The Federal rules restrict any use of the information to criminally investigate or prosecute any alcohol or drug abuse patient.[facility] Center[facility] the event this information is protected by the Federal Confidentiality of Alcohol and Drug Abuse Patient Records regulations: The Federal rules restrict any use of the information to criminally investigate or prosecute any alcohol or drug abuse patient.[facility] Center[facility] the event this information is protected by the Federal Confidentiality of Alcohol and Drug Abuse Patient Records regulations: The Federal rules restrict any use of the information to criminally investigate or prosecute any alcohol or drug abuse patient.[facility] CenterIn the event this information is protected by the Federal Confidentiality of Alcohol and Drug Abuse Patient Records regulations: The Federal rules restrict any use of the information to criminally investigate or prosecute any alcohol or drug abuse patient.[facility] Center[facility] the event this information is protected by the Federal Confidentiality of Alcohol and Drug Abuse Patient Records regulations: The Federal rules restrict any use of the information to criminally investigate or prosecute any alcohol or drug abuse patient.[facility] CenterIn the event this information is protected by the Federal Confidentiality of Alcohol and Drug Abuse Patient Records regulations: The Federal rules restrict any use of the information to criminally investigate or prosecute any alcohol or drug abuse patient.[facility] Center[facility] the event this information is protected by the Federal Confidentiality of Alcohol and Drug Abuse Patient Records regulations: The Federal rules restrict any use of the information to criminally investigate or prosecute any alcohol or drug abuse patient.[facility] CenterIn the event this information is protected by the Federal Confidentiality of Alcohol and Drug Abuse Patient Records regulations: The Federal rules restrict any use of the information to criminally investigate or prosecute any alcohol or drug abuse patient.[facility] CenterIn the event this information is protected by the Federal Confidentiality of Alcohol and Drug Abuse Patient Records regulations: The Federal rules restrict any use of the information to criminally investigate or prosecute any alcohol or drug abuse patient.[facility] CenterIn the event this information is protected by the Federal Confidentiality of Alcohol and Drug Abuse Patient Records regulations: The Federal rules restrict any use of the information to criminally investigate or prosecute any alcohol or drug abuse patient.[facility] CenterIn the event this information is protected by the Federal Confidentiality of Alcohol and Drug Abuse Patient Records regulations: The Federal rules restrict any use of the information to criminally investigate or prosecute any alcohol or drug abuse patient.[facility] CenterIn the event this information is protected by the Federal Confidentiality of Alcohol and Drug Abuse Patient Records regulations: The Federal rules restrict any use of the information to criminally investigate or prosecute any alcohol or drug abuse patient.[facility] CenterIn the event this information is protected by the Federal Confidentiality of Alcohol and Drug Abuse Patient Records regulations: The Federal rules restrict any use of the information to criminally investigate or prosecute any alcohol or drug abuse patient.[facility] CenterIn the event this information is protected by the Federal Confidentiality of Alcohol and Drug Abuse Patient Records regulations: The Federal rules restrict any use of the information to criminally investigate or prosecute any alcohol or drug abuse patient.[facility] CenterIn the event this information is protected by the Federal Confidentiality of Alcohol and Drug Abuse Patient Records regulations: The Federal rules restrict any use of the information to criminally investigate or prosecute any alcohol or drug abuse patient.[facility] CenterIn the event this information is protected by the Federal Confidentiality of Alcohol and Drug Abuse Patient Records regulations: The Federal rules restrict any use of the information to criminally investigate or prosecute any alcohol or drug abuse patient.[facility] CenterIn the event this information is protected by the Federal Confidentiality of Alcohol and Drug Abuse Patient Records regulations: The Federal rules restrict any use of the information to criminally investigate or prosecute any alcohol or drug abuse patient.[facility] CenterIn the event this information is protected by the Federal Confidentiality of Alcohol and Drug Abuse Patient Records regulations: The Federal rules restrict any use of the information to criminally investigate or prosecute any alcohol or drug abuse patient.[facility] CenterIn the event this information is protected by the Federal Confidentiality of Alcohol and Drug Abuse Patient Records regulations: The Federal rules restrict any use of the information to criminally investigate or prosecute any alcohol or drug abuse patient.[facility] CenterIn the event this information is protected by the Federal Confidentiality of Alcohol and Drug Abuse Patient Records regulations: The Federal rules restrict any use of the information to criminally investigate or prosecute any alcohol or drug abuse patient.[facility] Reason for Visit (unrecogniz ed section and [...] of 50.0-59.9, adult (HCC) Procedures CONSULT TO [facility] OFFICE/OUTPATIENT NEW HIGH MDM 60 MINUTES Ursula Be, [employer] SAL[employer]ERSON.JACQUARD LOOM CARD CHANGER [address] [place] [address] Referral ID Status Reason Start Date Expiration Date V isits Requested Visits Authorized [id number] Closed PCP Requested Referral Auto-Generated Referral 11/15/2023 11/14/2024 1 1 Reason Comments New Patient Specialty Diagnoses / Procedures Referred By Brianna tong Referred To Contact Rheumatology Diagnoses Polyarthralgia Procedures CONSULT TO RHEUM/IMMUN DISEASE OFFICE/OUTPATIENT NEW HIGH MDM 60 MINUTES Ursula Be APRN.CNP [address] [place] [address] Referral ID Status Reason Start Date Expiration Date V isits Requested Visits Authorized [id number] Closed PCP Requested Referral 09/23/2023 09/22/2024 1 [address] Headache [address], bodyaches x this AM, chest congestion Care Teams (unrecognized sec tion and content) Concrete Laborer Relationship Specialty Start Date End Date Jony Martell MD [address] [place], [place] [id number] PCP - General Family Medicine 10/16/15 Concrete Laborer Relationship Specialty Start Date End Date Jony Martell MD [address] [place], [place] [address] PCP - General Family Medicine 10/16/15 Concrete Laborer Relationship Specialty Start Date End Date Jony Martell MD [address] [place], [place] [id number] PCP - General Family Medicine 10/16/15 Concrete Laborer Relationship Specialty Start Date End Date Jony Martell MD [address] [place] [address] PCP - General Family Medicine 10/16/15 Concrete Laborer Relationship Specialty Start Date End Date Jony Martell MD [address] [place] [address] PCP - General Family Medicine 10/16/15 Concrete Laborer Relationship Specialty Start Date End Date Jony Martell MD [address] [place], [place] [address] PCP - General Family Medicine 10/16/15 Concrete Laborer Relationship Specialty Start Date End Date Jony Martell MD [address] [place] [address] PCP - General Family Medicine 10/16/15 Concrete Laborer Relationship Specialty Start Date End Date Jony Martell MD [address] [place] [address] PCP - General Family Medicine 10/16/15 Concrete Laborer Relationship Specialty Start Date End Date Jony Martell MD [address] [place] [address] PCP - General Family Medicine 10/16/15 Concrete Laborer Relationship Specialty Start Date End Date Jony Martell MD [address] [place] [address] PCP - General Family Medicine 10/16/15 Concrete Laborer Relationship Specialty Start Date End Date Jony Martell MD [address] [place] [address] PCP - General Family Medicine 10/16/15 Concrete Laborer Relationship Specialty Start Date End Date Jony Martell MD [address] [place] [address] PCP - General Family Medicine 10/16/15 Concrete Laborer Relationship Specialty Start Date End Date Jony Martell MD [address] [place] [address] PCP - General Family Medicine 10/16/15 Concrete Laborer Relationship Specialty Start Date End Date Jony Martell MD [address] [place] [address] PCP - General Family Medicine 10/16/15 Concrete Laborer Relationship Specialty Start Date End Date Jony Martell MD [address] [place], [place] [address] PCP - General Family Medicine 10/16/15 Concrete Laborer Relationship Specialty Start Date End Date Jony Martell MD [address] [place], [place] [address] PCP - General Family Medicine 10/16/15 Concrete Laborer Relationship Specialty Start Date End Date Jony Martell MD [address] [place] [address] PCP - General Family Medicine 10/16/15 Concrete Laborer Relationship Specialty Start Date End Date Jony Martell MD [address] [place] [address] PCP - General Family Medicine 10/16/15 Concrete Laborer Relationship Specialty Start Date End Date Jony Martell MD [address] [place] [address] PCP - General Family Medicine 10/16/15 Concrete Laborer Relationship Specialty Start Date End Date Jony Martell MD [address] [place] [address] PCP - General Family Medicine 10/16/15 Concrete Laborer Relationship Specialty Start Date End Date Jony Martell MD [address] [place], [place] [address] PCP - General Family Medicine 10/16/15 Concrete Laborer Relationship Specialty Start Date End Date Jony Martell MD [address] [place] [address] PCP - General Family Medicine 10/16/15 Concrete Laborer Relationship Specialty Start Date End Date Jony Martell MD [address] [place], [place] [address] PCP - General [facility] 10/16/15 Concrete Laborer Relationship Specialty Start Date End Date Jony Martell MD [address] [place], [place] [address] PCP - General [facility] 10/16/15 Concrete Laborer Relationship Specialty Start Date End Date Jony Martell MD [address] [place], [place] [address] PCP - General Family [facility] 10/16/15 FOR RECORDS PERTAINING TO PATIENTS [...] BE BASED ON THE PRIMARY CLINICAL RECORDS. [facility]. provides no warranty or guarantee of the accuracy or completeness of information in this document.
--- OUTSIDE RECORDS SUMMARY | 2024-03-18 19:43 | XMS RPT_ITS | CCD ---
Author Organization [facility] Care Team Providers Care Real Estate Administrator Name Role Phone Michelle Fam Unavailable Unavailable [...] source) Nicotine Drug Allergy 06-29-2018 Unknown, Rash [facility] NSAIDs (1 source) meloxicam Drug Allergy 10-16-2015 Itching [facility] Valproate (1 source) Valproate Drug Allergy 11-19-2014 Rash [facility] (20 sources) meloxicam; Translations: [meloxicam] Drug All[facility] nicotine; Translations: [facility]Nicotine Patch] [facility] (3 sources) valproate; Translations: [Depakote] [facility] (20 sources) Valproate; Translations: [DIVALPROEX] Drug Allergy 11-19-2014 [facility] (16 sources) Nicotine; Translations: [NICOTINE] Drug Allergy 06-29-2018 Unknown, [facility] Medications Current Medications Medication Drug Class(es) [...] on above: Take 1 capsule by mo [facility] once daily. 24 hr buPROPion hydrochloride [...] Comment on above: Take 1 tablet by [facility] three times daily. celecoxib 200 mg oral capsule (13 sources) Nonsteroidal Anti-inflammatory Drug Start: 024 take 1 capsule by mouth once daily celecoxib (CELEBREX) 200 mg capsule Indications: Polyarthralgia Take 1 capsule by mouth once daily. 30 capsule 5 09/06/2023 Active Comment on above: Take 1 capsule by mo [facility] once daily. cholecalciferol 0.05 mg oral [...] Comment on above: Take 1 capsule by [facility] once daily. citalopram 40 mg oral tablet [...] Comment on above: [facility] Take 3 tablets by mo ut daily at bedtime. Take 8 tablets by mo [facility] daily at bedtime. lisdexamfetamine dimesylate 50 [...] Mirtazapine (REMERON) 7.5 mg tablet 03/10/2024 Active [facility] Medication (1 source) Start: 05-31-2015 [facility] Medicatio n 0 Refill(s) Start Date: 05/31/15 [...] stomach, 1/2 hr before meal. polymyxin b 11745 unt/ml / trimethoprim 1 mg/ml ophthalmic solution [...] 1 tab x3 days with food. thyroid (alf) 60 mg oral tablet (20 sources) Start: [...] 30 tablet 5 08/16/2022 Active Start: 10-17-2020 [facility] Thyroid 60 mg oral tablet Dose : [...] Drug Class(es) Dates Sig (Normalized) Sig (Original) [id number] 200 actuat albuterol 0.09 mg/actuat metered dose [...] with BMI of 50.0-59.9, adult ([facility])] Onset: 4 Chronic Other nutritional; endocrine; and metabolic disorders (1 source) Body mass index (BMI) 50.0-59.9, adult; Translations: [Morbid obesity with BMI of 50.0-59.9, adult ([facility])] Onset: Chronic Other screening for suspected [...] Name Value Interpretation Reference Range Facility [facility] 03-14-2024 [facility] Office Visit (TINO ) SWATHI WAHL ([id number]) 1990 F Date Time Provider Department 03/14/24 9:40 AM ALBERTA EDWARD During your visit today, we recorded the following information about you: Pulse Blood pressure Weight 66/minute 132/74 156 kg Alberta Edward MD 03/14/2024 10:34 AM Signed [facility] Date of Service: 03/14/2024 Patient: Swathi Wahl Medical Record: [id number] Primary Care Physician: Jony Martell MD Referring Provider: Ursula Be [address] [facility] [address] Last Rheumatology visit: None at [facility] Chief complaint: New Patient Consultation requested [...] to have scalp psoriasis, 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 08/2023 Sed [...] Tobacco Us (more content not included)... Normal [facility] CNOVon 03-13-2024 CNOV Office Visit (OBGYWM ) SWATHI WAHL ([id number]) 1990 F Date Time Provider Department 03/13/24 [...] - D - 5-6pm eats large portions- french meals- tacos, burritos, meatloaf, lasagna, roast, green beans S - typically Fluids: milk (whole milk)- 16oz glass 3x day, 16oz water bottle 4-7 per day Bedtime -7-9pm Quality of diet: 24hr recall suggests in between diet. Characterization of diet:Unstructured, excessive cravings, evening snacking, increased consumption of sugar sweetened beverages (milk), and skip meals. Medical Records Director of impaired eating habits:excessive hunger, boredom, emotion, [...] AOM Medications: Bupropion and Naltrexone- taking through script editor Weight Promoting Medications: gabapentin and Other lamotrigine Diet/weight loss History: Past weight loss attempts? anti-obesity medications Phentermine. Diet and exercise Exercise: Regular exercise: walking Strength/resistance exercise:no Barriers to regular exercise? yes - joint pain and skin pain Work-related activity:Active. 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 Normal [facility] CNOVon 03-08-2024 CNOV Office Visit (UCWSTR ) SWATHI WAHL ([id number]) 1990 F Date Time Provider Department 03/08/24 9:00 AM MICHELLE ROBERTS [facility] During your visit today, we recorded the following information about you: Temperature Pulse Respiration Blood pressure 97.4 degrees 100/minute 21/minute 140/86 Weight 156.8 kg Michelle Roberts APRN.NUT THREADER 03/08/2024 9:07 AM Signed This note was created using Studio Bloomedriter. Subjective Swathi M Workman is a 33 [...] Date Reviewed: 03/08/2024 Reviewed by: Michelle Roberts APRN.NUT THREADER - Fully Assessed Reason for Visit: Diarrhea [...] Back a (more content not included)... Normal [facility] EMERGENCY REPORTon EMERGENCY REPORT [facility] EMERGENCY ROOM REPORT NAME ACCOUNT SEX AGE ADMIT DISCHARGE PT MED. RECORD# NUMBER DATE DATE TYPE WORKMAN, [id number] Cade 33 12/13/23 12/14/23 3 SWATHI Rivers [id number] ROOM: [facility] DATE OF : 1990 DICTATING PHYSICIAN: Amara Alexandra ADDENDUM HISTORY OF PRESENT ILLNESS: This is a 33-year-old female who came to the Emergency Room with suicidal ideation. EMERGENCY DEPARTMENT COURSE AND TREATMENT: She was seen initially by Dr. Krishnamurthy and medically cleared. We had been awaiting a counseling session, which occurred somewhere after midnight, and a bed was arranged at [facility] in [place] for her to be transferred to that [...] The counselor has arranged a bed at [facility]. The patient has been comfortable here. She is a little anxious, for which she was given 1 mg of Ativan with calming effects noted. Her potassium was a little bit low at 3, for which she is being given a potassium pill. DIAGNOSIS: Suicidal ideation, depression and anxiety. PLAN/DISPOSITION: She will be transported by ambulance to [facility]. Dictated By: Amara Alexandra DO 12/14/23 03:42 JOB #: [id number] Transcribed By: sandra 12/15/23 09:34 Electronically signed by: E-SIGN AMARA ALEXANDRA DO 12/15/23 18:55 Page 1 of 1 SWATHI WAHL Emergency Room Report Normal [facility] ALCOHOL-BLOOD MEDICALon 11-27 Ethanol [Mass/Vol] 87 mg/dL High 0 - 50 [facility] Comment on above: Performed By: #### 2 06076 #### [facility],[address] [place] [address] 43670 CBC + DIFFon 12-13-2023 Baso # 0.03 x10EE3/UL Normal 0.00 - 0.10 [facility] Comment on above: Performed By: #### 2 49882 #### [facility],[address] [place], [place] [address] Basophils/100 WBC (Bld) 0.3 % Normal 0.0 - 2.0 [facility] Comment on above: Performed By: #### 2 63201 #### [facility],[address] [place] [address] 37350 CBC + DIFF Normal [facility] Comment on above: Result Comment: CBC- COMPLETE BLOOD COUNT Performed By: #### 2 83406 #### [facility],[address] [place] [address] EO 4.0 % Normal 0.0 - 7.0 [facility] Comment on above: Performed By: #### 2 99970 #### [facility],[address] [place] [address] EO # 0.11 x10EE3/UL Normal 0.00 - 0.50 [facility] Comment on above: Performed By: #### 2 98581 #### [facility],[address] [place], [place] [address] Eosinophils/100 WBC (Bld) 1.2 % Normal 0.0 - 7.0 [facility] Comment on above: Performed By: #### 2 47029 #### [facility],[address] [place] [address] Erythrocyte distribution width (RBC) [Ratio] 13.8 % Normal 12.0 - 15.6 [facility] Comment on above: Performed By: #### 2 89912 #### [facility],[address] [place], [place] [address] Hematocrit (Bld) [Volume fraction] 35.5 % Normal 34.0 - 46.0 [facility] Comment on above: Performed By: #### 2 66916 #### [facility],[address] [place], [place] [address] Hemoglobin (Bld) [Mass/Vol] 11.9 g/dL Low 12.0 - 16.0 [facility] Comment on above: Performed By: #### 2 94352 #### [facility],[address] [place] [address] 69604 Lymph # 2.47 x10EE3/UL Normal 0.80 - 2.80 [facility] Comment on above: Performed By: #### 2 44621 #### [facility],[address] [place] [address] 86529 Lymphocytes/100 WBC (Bld) 27.5 % Normal 20.0 - 45.0 [facility] Comment on above: Performed By: #### 2 40645 #### [facility],[address] [place] [address] 34526 Lymphocytes/100 WBC (Bld) 33 % Normal 20 - 45 [facility] Comment on above: Performed By: #### 2 01735 #### [facility],[address] [place] [address] 83759 MANUAL DIFF SEE BELOW Normal [facility] Comment on above: Performed By: #### 2 72831 #### [facility],[address] [place] [address] 20285 MCH (RBC) [Entitic mass] 31 pg Normal 27 - 33 [facility] Comment on above: Performed By: #### 2 50023 #### [facility],[address] [place] [address] 84560 MCHC 33 X10 3 Normal 32 - 36 [facility] Comment on above: Performed By: #### 2 40969 #### [facility],[address] [place] [address] 47391 MCV (RBC) [Entitic vol] 91 fL Normal 80 - 99 [facility] Comment on above: Performed By: #### 2 60794 #### [facility],[address] [place] [address] 03117 Bond # 0.39 x10EE3/UL Normal 0.20 - 1.00 [facility] Comment on above: Performed By: #### 2 63954 #### [facility],[address] [place] [address] 27356 MONOS 3 % Normal 0 - 10 [facility] Comment on above: Performed By: #### 2 85030 #### [facility],[address] [place] [address] 05154 MONOS % 4.3 % Normal 0.0 - 10.0 [facility] Comment on above: Performed By: #### 2 76178 #### [facility],[address] [place] [address] 32000 Morphology Mazin (Bld) [Interp] N/A Normal [facility] Comment on above: Performed By: #### 2 34705 #### [facility],[address] [place] [address] 83622 Neut # 6.00 x10EE3/UL Normal 1.50 - 7.10 [facility] Comment on above: Performed By: #### 2 97640 #### [facility],[address] [place] [address] 21564 Neutrophils/100 WBC (Bld) 66.7 % Normal 46.0 - 76.0 [facility] Comment on above: Performed By: #### 2 33486 #### [facility],[address] [place] [address] 83390 PLATELET 227 x10EE3/UL Normal 150 - [address] [facility] Comment on above: Performed By: #### 2 99868 #### [facility],[address] [place] [address] 84535 Platelet mean volume (Bld) [Entitic vol] 8.2 fL Normal 6.6 - 10.5 [facility] Comment on above: Result Comment: AUTO MATED DIFFERENTIAL Performed By: #### 2 90271 #### [facility],[address] [place] [address] 72984 RBC 3.89 x 10EE6/UL Low 4.10 - 5.30 [facility] Comment on above: Performed By: #### 2 08129 #### [facility],[address] [place] [address] 89699 SEGS 60 % Normal 46 - 76 [facility] Comment on above: Performed By: #### 2 07432 #### [facility],[address] [place] [address] 55792 WBC 9.0 x 10EE3/UL Normal 4.5 - 10.8 [facility] Comment on above: Performed By: #### 2 62477 #### [facility],[address] [place] [address] 88051 CMP with eGFRon 12-13-2023 AGE 33 years Normal [facility] Comment on above: Performed By: #### 2 62711 #### [facility],[address] [place] [address] 90495 Albumin [Mass/Vol] 3.3 g/dL Low 3.4 - 5.0 [facility] Comment on above: Performed By: #### 2 96744 #### [facility],[address] [place] [address] 96049 Albumin/Globulin [Mass ratio] 0.9 {ratio} Normal 0.9 - 1.6 [facility] Comment on above: Performed By: #### 2 25230 #### [facility],[address] [place] [address] 86780 ALK PHOS 72 U/L Normal 46 - 116 [facility] Comment on above: Performed By: #### 2 74879 #### [facility],[address] [place] [address] 91780 ALT [Catalytic activity/Vol] 28 U/L Normal 16 - 63 [facility] Comment on above: Performed By: #### 2 93949 #### [facility],[address] [place] [address] 44649 Anion gap [Moles/Vol] 15 mmol/L Normal 10 - 20 [facility] Comment on above: Performed By: #### 2 85656 #### [facility],[address] [place] [address] 85319 AST [Catalytic activity/Vol] 19 U/L Normal 13 - 39 [facility] Comment on above: Performed By: #### 2 60257 #### [facility],[address] [place] [address] 39143 B/C RATIO 15 ratio Normal 0 - 30 [facility] Comment on above: Performed By: #### 2 45478 #### [facility],[address] [place] [address] 63178 Bilirubin [Mass/Vol] 0.3 mg/dL Normal 0.2 - 1.0 [facility] Comment on above: Performed By: #### 2 78789 #### [facility],[address] [place] [address] 68652 Calcium [Mass/Vol] 8.4 mg/dL Low 8.5 - 10.1 [facility] Comment on above: Performed By: #### 2 24391 #### [facility],[address] [place] [address] 37631 Chloride [Moles/Vol] 105 mmol/L Normal 98 - 107 [facility] Comment on above: Performed By: #### 2 49677 #### [facility],[address] [place] [address] 29938 CMP with eGFR Normal [facility] Comment on above: Result Comment: COMP REHENSIVE METABOLIC PANEL Performed By: #### 2 55893 #### [facility],[address] [place] [address] 96372 CO2 [Moles/Vol] 25.3 mmol/L Normal 21.0 - 32.0 [facility] Comment on above: Performed By: #### 2 54943 #### [facility],[address] [place] [address] 58892 Creatinine [Mass/Vol] 0.92 mg/dL Normal 0.55 - 1.02 [facility] Comment on above: Performed By: #### 2 96697 #### [facility],[address] [place] [address] 64621 GFR/1.73 sq M.predicted among non-blacks MDRD (S/P/Bld) [Vol rate/Area] mL/min/{1.73_m2} Normal 60 - 999 [facility] Comment on above: Performed By: #### 2 38530 #### [facility],[address] [place] [address] 48643 Result Comment: ACCO RDING TO THE NATIONAL KIDNEY DISEASE EDUCATION PROGRAM(NKDE), A NORMAL eGFR IS A VALUE GREATER THAN OR EQUAL TO 60 ML/MIN/1.73 SQ METERS. CHRONIC KIDNEY DISEASE: <60mL/MIN/1.73 SQ METERS KIDNEY FAILURE: <15mL/MIN/1.73 SQ METERS THIS TEST SHOULD ONLY BE USED FOR PATIENTS 18 YEARS OF AGE AND OLDER. Globulin (S) [Mass/Vol] 3.8 g/dL Normal 1.5 - 3.8 [facility] Comment on above: Performed By: #### 2 96912 #### [facility],[address] [place] [address] 62898 Glucose [Mass/Vol] 106 mg/dL Normal 74 - 106 [facility] Comment on above: Performed By: #### 2 06988 #### [facility],[address] [place] [address] 48804 Potassium [Moles/Vol] 3.0 mmol/L Low 3.5 - 5.1 [facility] Comment on above: Performed By: #### 2 19362 #### [facility],[address] [place] [address] 84807 Protein [Mass/Vol] 7.1 g/dL Normal 6.4 - 8.2 [facility] Comment on above: Performed By: #### 2 13985 #### [facility],[address] [place] [address] 39277 Sodium [Moles/Vol] 142 mmol/L Normal 136 - 145 [facility] Comment on above: Performed By: #### 2 54945 #### [facility],[address] [place] [address] 53632 Urea nitrogen [Mass/Vol] 14 mg/dL Normal 7 - 18 [facility] Comment on above: Performed By: #### 2 02640 #### [facility],[address] [place] [address] 26471 CORONAVIRUS (SARS) ANTIGEN T ESTon 12-13-2023 EXTERNAL QC DONE? YES Normal [facility] Comment on above: Performed By: #### 2 66297 #### [facility],[address] [place] [address] 98800 INTERNAL CONTROL PASS Normal [facility] Comment on above: Performed By: #### 2 68495 #### [facility],[address] [place] [address] 96727 SARS ANTIGEN Negative Normal NORMAL: NEGATIVE [facility] Comment on above: Performed By: #### 2 60341 #### [facility],[address] [place] [address] 00056 SEND TO ? NO Normal [facility] Comment on above: Result Comment: SARS -CoV-2 THIS TEST IS BEING USED UNDER THE FDA EUA PROCEDURE. THIS ASSAY HAS BEEN VALIDATED AT [facility] FOR USE WITH NASAL AND NASOPHARYNGEAL [...] PUBLIC HEALTH AUTHORITIES. Performed By: #### 2 30436 #### [facility],[address] [place] [address] DRUG SCREEN URINE MEDICon AMPHETAMINES Negative [facility] Comment on above: Performed By: #### 2 29482 #### [facility],[address] [place] [address] B-DIAZEPINES Negative [facility] Comment on above: Performed By: #### 2 97662 #### [facility],[address] [place], [place] [address] BARBITURATES Negative [facility] Comment on above: Performed By: #### 2 94538 #### [facility],[address] [place] [address] COCAINE Negative [facility] Comment on above: Performed By: #### 2 47350 #### [facility],[address] [place] [address] DRUG SCREEN URINE MEDIC [facility] Comment on above: Result Comment: DRUG SCREEN - URINE Performed By: #### 2 96573 #### [facility],[address] [place] [address] 75925 METHADONE Negative [facility] Comment on above: Performed By: #### 2 24482 #### [facility],[address] [place] [address] 00207 OPIATES Negative Normal [facility] Comment on above: Performed By: #### 2 22354 #### [facility],[address] [place] [address] 30483 PCP Negative Normal [facility] Comment on above: Performed By: #### 2 08133 #### [facility],[address] [place], [place] [address] THC Negative Normal [facility] Comment on above: Result Comment: EULALIA ENTS RECEIVING PROTON PUMP INHIBITORS MAY DEMONSTRATE FALSE POSITIVE THC/CANNABINOID RESULTS. AN ALTERNATIVE CONFIRMATORY METHOD SHOULD BE CONSIDERED TO VERIFY POSITIVE RESULTS. Performed By: #### 2 57442 #### [facility],[address] [place], [place] [address] URINEon 12-13-2023 Beta HCG ( test) Ql (U) Negative Normal NEGATIVE [facility] Comment on above: Performed By: #### 2 27270 #### [facility],[address] [place] [address] EXTERNAL QC DONE? YES Normal [facility] Comment on above: Performed By: #### 2 72244 #### [facility],[address] [place], [place] [address] INTERNAL QC PASS Normal [facility] Comment on above: Performed By: #### 2 82340 #### [facility],[address] [place] [address] 81951 URINALYSISon 12-13-2023 Bilirubin Ql (U) Negative Normal NORMAL: NEGATIVE [facility] Comment on above: Performed By: #### 2 37109 #### [facility],[address] [place], [place] [address] Clarity (U) clear Normal NORMAL: CLEAR [facility] Comment on above: Performed By: #### 2 25673 #### [facility],[address] [place], [place] [address] Color (U) yellow Normal NORMAL: YELLOW [facility] Comment on above: Performed By: #### 2 09359 #### [facility],[address] [place] [address] 78470 Glucose Ql (U) NORM Normal NORMAL: NORMAL [facility] Comment on above: Performed By: #### 2 63255 #### [facility],[address] [place] [address] 37671 Hemoglobin Ql (U) Negative Normal NORMAL: NEGATIVE [facility] Comment on above: Performed By: #### 2 80788 #### [facility],[address] [place] [address] 11062 Ketone Negative Normal NORMAL: NEGATIVE [facility] Comment on above: Performed By: #### 2 30480 #### [facility],[address] [place] [address] 74549 Leukocytes Negative Normal NORMAL: NEGATIVE [facility] Comment on above: Performed By: #### 2 94151 #### [facility],[address] [place] [address] 29153 Nitrite Ql (U) Negative Normal NORMAL: NEGATIVE [facility] Comment on above: Performed By: #### 2 29437 #### [facility],[address] [place] [address] 14121 pH (U) 5 [pH] Normal NORMAL: 5.0-8.0 [facility] Comment on above: Performed By: #### 2 31479 #### [facility],[address] [place] [address] 50781 Protein Ql (U) 15 Abnormal NORMAL: NEGATIVE [facility] Comment on above: Performed By: #### 2 29479 #### [facility],[address] [place] [address] 06264 Sp Rio 1.025 Normal NORMAL: 1.010-1.030 [facility] Comment on above: Performed By: #### 2 17916 #### [facility],[address] [place] [address] Specimen Type UNSPECIFIED Normal [facility] Comment on above: Performed By: #### 2 05226 #### [facility],[address] [place] [address] Urinalysis dipstick W Reflex Microscopic panel (U) NOT INDICATED Normal [facility] Comment on above: Performed By: #### 2 46507 #### [facility],[address] [place] [address] Urobilinog NORM Normal NORMAL: NORMAL [facility] Comment on above: Performed By: #### 2 25813 #### [facility],[address] [place], [place] [address] CNPNon 12-06-2023 JUDIT Telephone (KORIN) SWATHI WAHL ([id number]) 1990 F Date Time Provider Department 12/06/23 URSULA BE During your visit today, we recorded the following information about you: Good Pacheco LPN 12/06/2023 8:22 AM Signed [facility] message regarding Wegovy. Have we received word from insurance yet? Please advise. ANALIA Hedrick [place], MA 12/06/2023 8:38 AM Signed Previous message from 11/18 not sent to [place]. Medicaid does not cover any weight loss medication. Patient was notified by phone and through mychart not covered. MIRACLE De Los Santos Christy, APRN.CNP 12/06/2023 8:42 AM Signed Noted. Ursula Be APRN.NUT THREADER Allergies As of Date: 12/06/2023 Noted Allergy Reaction DEPAKOTE (DIVALPROEX) 11/19/2014 2 - Rash MELOXICAM 10/16/2015 9 - Itching NICOTINE 06/29/2018 16 - Unknown 2 - Rash Date Reviewed: 11/22/2023 Reviewed by: Sheela Thornton MA - Fully Assessed Reason for Visit: Insurance Authorization [[id number]] Cmt: Wegovy Prescriptions as of 12/06/2023 - [...] Encounter Status:Closed by URSULA BE on 12/06/23 [facility] ALEXISOVon 11-22-2023 CNOV Office Visit (OBGYWM ) SWATHI WAHL ([id number]) 1990 F Date Time Provider Department 11/22/23 10:00 AM MANUELA PEARCE During your visit today, we recorded the following information about you: Blood pressure Weight Height Last Period 120/72 152.9 kg 1.69 m 10/31/23 Manuela Pearce APRN.CNM 11/22/2023 11:01 AM Signed Medical Imaging Tech offered: Patient declines. Swathi is a 33 year old who presents for an annual gynecologic exam without complaints. Working with primary care for weight loss and weight management. 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 Was in nursing home for 6 months 10 days after delivery. [...] L1 SAB6 IAB0 Ectopic0 Multiple0 Live Births1 Report Writer History LMP: 10/31/2023 (Approximate), Having periods Age at Menarche: Age at First : Age at Menopause: Report Writer History Comments: Sexual Activity: Not Currently; Male; [...] external genitalia normal, normal Bartholin's glands, urethra, Olivarez's glands, no vulvar lesions, no cervical lesions, [...] ICD10: E66. (more content not included)... Normal [facility] HIGH RISK HUMAN PAPILLOMA MENDEZ (HPV), PCR FOR DETECTION AND GENOTYPINGon 11-22-2023 HPV 16 Ag Ql (Unsp spec) Not detected Normal Not detected [facility] Comment on above: Order Comment: Speci men Type: FLUID SPECIMENOrdering Facility: [facility] Address: [address] [place] [address] Performed By: #### L [id number] ####[facility]ORATORYCLIA [id number] [address] LABCLIA [id number] [place] [address] [place]#### HPVHRT ####[facility] LABCLIA [id number] [place] [address] [place] HPV 18 Ag Ql (Unsp spec) Not detected Normal Not detected [facility] Comment on above: Order Comment: Speci men Type: FLUID SPECIMENOrdering Facility: [facility] Address: [address] [place] [address] Performed By: #### L [id number] ####[facility]ATORYCLIA [id number] [address] [facility] LABCLIA [id number] [place] [address] [place]#### HPVHRT ####[facility] LABCLIA [id number] [place] [address] [place] HPV 31+33+35+39+45+51+52 +56+58+59+66+68 DNA ESHA+probe Ql (Cvx) Not detected Normal Not detected [facility] Comment on above: Order Comment: Speci men Type: FLUID SPECIMENOrdering Facility: [facility] Address: [address] [place] [address] Result Comment: High Risk HPV Other Type includes HPV types 31, 33, 35, 39, 45, 51, 52, 56, 58, 59, 66 and 68. Performed By: #### L [id number] ####[facility]ORYCLIA [id number] [address] LABCLIA [id number] [place] [address] [place]#### HPVHRT ####[facility] LABCLIA [id number] [place] [address] [place] PAP TESTon 11-22-2023 ADEQUACY Satisfactory for interpretation. Normal [facility] Comment on above: Order Comment: Speci men Type: FLUID SPECIMENOrdering Facility: [facility] Address: [address] [place] [address] Performed By: #### L [id number] ####[facility]ATORYCLIA [id number] [address] LABCLIA [id number] [place] [address] [place]#### HPVHRT ####[facility] LABCLIA [id number] [address] [place] CASE REPORT Normal [facility] Comment on above: Order Comment: Speci men Type: FLUID SPECIMENOrdering Facility: [facility] Address: [address] [place] [address] Result Comment: Gyne cologic Cytology Report Case: [id number] Authorizing Provider: Manuela Pearce APRN.CNM Collected: 11/22/2023 10:59 AM Ordering Location: OB/Gynecology Received: 11/22/2023 12:11 PM First Screen: Oliver, [place], [place], ASCP Specimen: Pap Test, ThinPrep, Cervix Performed By: #### L [id number] ####[facility]ORATORYCLIA [id number] [address] LABCLIA [id number] [place] [address] [place]#### HPVHRT ####[facility] LABCLIA [id number] [place] [address] [place] CLINICAL HISTORY, CYTOLOGY, SENIOR DATA SCIENTIST Routine Exam Normal [facility] Comment on above: Order Comment: Speci men Type: FLUID SPECIMENOrdering Facility: [facility] Address: [address] [place] [address] Performed By: #### L [id number] ####[facility]ORATORYCLIA [id number] [place] [address] [place] [facility] LABCLIA [id number] [place] [address] [place]#### HPVHRT ####[facility] LABCLIA [id number] [place] [address] [place] FINAL PERFORMING LAB Normal [facility] Comment on above: Order Comment: Speci men Type: FLUID SPECIMENOrdering Facility: [facility] Address: [address] [address] Result Comment: Tech nical component, wood die maker screening performed at [facility], [address] [id number] CLIA# [id number] Diagnostic interpretation performed at [facility], [address] [address] CLIA# [id number] Book Trimmer: Sri Fields M.D. Performed By: #### L [id number] ####[facility] LABORATORYCLIA [id number] [place] [id number] [place] [facility] LABCLIA [id number] [place] [address] [place]#### HPVHRT ####[facility] LABCLIA [id number] [place] [address] [place] HPV REFLEX Yes HPV Normal [facility] Comment on above: Order Comment: Speci men Type: FLUID SPECIMENOrdering Facility: [facility] Address: [address] [place] [address] Performed By: #### L [id number] ####[facility]ATORYCLIA [id number] [place] [id number] [place] [facility] LABCLIA [id number] [place] [address] [place]#### HPVHRT ####[facility] LABCLIA [id number] [place] [address] [place] INTERPRETATION, CYTOLOGY, SENIOR DATA SCIENTIST Normal [facility] Comment on above: Order Comment: Speci men Type: FLUID SPECIMENOrdering Facility: [facility] Address: [address] [place] [address] Result Comment: Nega tive for intraepithelial lesion or malignancy. Performed By: #### L [id number] ####[facility]ORATORYCLIA [id number] [place] [address] [place] [facility] LABCLIA [id number] [place] [address] [place]#### HPVHRT ####[facility] LABCLIA [id number] [place] [address] [place] LMP 10/31/2023 Normal [facility] Comment on above: Order Comment: Speci men Type: FLUID SPECIMENOrdering Facility: [facility] Address: [address] [place], [place] [address] Performed By: #### L [id number] ####[facility]ATORYCLIA [id number] [place] [address] [place] [facility] LABCLIA [id number] [place] [address] [place]#### HPVHRT ####[facility] LABCLIA [id number] [address] PAP DISCLAIMER COMMENT The Pap Smear is a screening test for cervical cancer. False negative results occur with all screening tests, emphasizing the need for rescreening at recommended intervals, and clinical correlation. Normal [facility] Comment on above: Order Comment: Speci men Type: FLUID SPECIMENOrdering Facility: [facility] Address: [address] [place] [address] Performed By: #### L [id number] ####[facility]ORATORYCLIA [id number] [address] OF [facility] LABCLIA [id number] [address] OF [place]#### HPVHRT ####[facility] LABCLIA [id number] [address] OF [facility] CNOVon 11-15-2023 [facility] SWATHI WAHL ([id number]) 1990 F Date Time Provider Department 11/15/23 10:00 AM [facility] During your visit today, we recorded [...] ML SUBCUTANEOUS PEN INJECTOR - CONSULT TO [facility] WEIGHT (more content not included)... Normal [facility] Cristo 09-26-2023 MICHELLEN Telephone ([facility]) SWATHI WAHL ([id number]) 1990 F Date Time Provider Department 09/26/23 [...] Status:Closed by GÉNESIS MEZA on 09/27/23 Normal [facility] 25(OH)D3 SerPl-mCncon 2023 25-hydroxyvitamin D3 [Mass/Vol] 30.7 ng/mL Low 31.0-80.0 [facility] Comment on above: Order Comment: Speci men Type: BLOOD SPECIMENOrdering Facility: [facility] Address: [address] [place] [address] Performed By: #### 1 989-3 ####[facility] LABCLIA [id number] [place] [address] [place] CBC W Auto Differential pane l (Bld)on 09-21-2023 Basophils (Bld) [#/Vol] 0.03 10*3/uL Normal <0.11 [facility] Comment on above: Order Comment: Speci men Type: BLOOD SPECIMENOrdering Facility: [facility] Address: [address] [place] [address] Performed By: #### 4 537-7, 53884-2 ####[facility] LABCLIA [id number] [place] [address] [place] Basophils/100 WBC (Bld) 0.4 % Normal [facility] Comment on above: Order Comment: Speci men Type: BLOOD SPECIMENOrdering Facility: [facility] Address: [address] [place] [address] Performed By: #### 4 537-7, 17074-4 ####[facility] LABCLIA [id number] [place] [address] [place] Differential cell count method Nom (Bld) Auto Normal [facility] Comment on above: Order Comment: Speci men Type: BLOOD SPECIMENOrdering Facility: [facility] Address: [address] [place] [address] Performed By: #### 4 537-7, 64327-4 ####[facility] LABCLIA [id number] [place] [address] [place] Eosinophils (Bld) [#/Vol] 0.08 10*3/uL Normal <0.46 [facility] Comment on above: Order Comment: Speci men Type: BLOOD SPECIMENOrdering Facility: [facility] Address: [address] [place] [address] Performed By: #### 4 537-7, 61682-6 ####[facility] LABCLIA [id number] [place] [address] [place] Eosinophils/100 WBC (Bld) 1.1 % Normal [facility] Comment on above: Order Comment: Speci men Type: BLOOD SPECIMENOrdering Facility: [facility] Address: [address] [place] [address] Performed By: #### 4 537-7, 82535-0 ####[facility] LABCLIA [id number] [place] [address] [place] Erythrocyte distribution width (RBC) [Ratio] 14.0 % Normal 11.5-15.0 [facility] Comment on above: Order Comment: Speci men Type: BLOOD SPECIMENOrdering Facility: [facility] Address: [address] [place] [address] Performed By: #### 4 537-7, 56872-1 ####[facility] LABCLIA [id number] [place] [address] [place] Hematocrit (Bld) [Volume fraction] 38.2 % Normal 36.0-46.0 [facility] Comment on above: Order Comment: Speci men Type: BLOOD SPECIMENOrdering Facility: [facility] Address: [address] [place] [address] Performed By: #### 4 537-7, 97318-1 ####[facility] LABCLIA [id number] [place] [address] [place] Hemoglobin (Bld) [Mass/Vol] 12.1 g/dL Normal 11.5-15.5 [facility] Comment on above: Order Comment: Speci men Type: BLOOD SPECIMENOrdering Facility: [facility] Address: [address] [place] [address] Performed By: #### 4 537-7, 68632-3 ####[facility] LABCLIA [id number] [place] [address] [place] Immature granulocytes (Bld) [#/Vol] 0.07 10*3/uL Normal <0.10 [facility] Comment on above: Order Comment: Speci men Type: BLOOD SPECIMENOrdering Facility: [facility] Address: [address] [place] [address] Performed By: #### 4 537-7, 63516-2 ####[facility] LABIA [id number] [place] [address] [place] Immature granulocytes/100 WBC (Bld) 1.0 % Normal [facility] Comment on above: Order Comment: Speci men Type: BLOOD SPECIMENOrdering Facility: [facility] Address: [address] [place] [address] Performed By: #### 4 537-7, 65647-2 ####[facility] LABIA [id number] [place] [address] [place] Lymphocytes (Bld) [#/Vol] 2.61 10*3/uL Normal 1.00-4.00 [facility] Comment on above: Order Comment: Speci men Type: BLOOD SPECIMENOrdering Facility: [facility] Address: [address] [place] [address] Performed By: #### 4 537-7, 67747-6 ####[facility] LABCLIA [id number] [place] [address] [place] Lymphocytes/100 WBC (Bld) 36.1 % Normal [facility] Comment on above: Order Comment: Speci men Type: BLOOD SPECIMENOrdering Facility: [facility] Address: [address] [place] [address] Performed By: #### 4 537-7, 75730-1 ####[facility] LABCLIA [id number] [place] [address] [place] MCH (RBC) [Entitic mass] 29.0 pg Normal 26.0-34.0 [facility] Comment on above: Order Comment: Speci men Type: BLOOD SPECIMENOrdering Facility: [facility] Address: [address] [place] [address] Performed By: #### 4 537-7, 61748-5 ####[facility] LABCLIA [id number] [place] [address] [place] MCHC (RBC) [Mass/Vol] 31.7 g/dL Normal 30.5-36.0 [facility] Comment on above: Order Comment: Speci men Type: BLOOD SPECIMENOrdering Facility: [facility] Address: [address] [place] [address] Performed By: #### 4 537-7, 09682-6 ####[facility] LABIA [id number] [place] [address] [place] MCV (RBC) [Entitic vol] 91.6 fL Normal 80.0-100.0 [facility] Comment on above: Order Comment: Speci men Type: BLOOD SPECIMENOrdering Facility: [facility] Address: [address] [place] [address] Performed By: #### 4 537-7, 29700-6 ####[facility] LABCLIA [id number] [place] [address] [place] Monocytes (Bld) [#/Vol] 0.45 10*3/uL Normal <0.87 [facility] Comment on above: Order Comment: Speci men Type: BLOOD SPECIMENOrdering Facility: [facility] Address: [address] [place] [address] Performed By: #### 4 537-7, 44332-0 ####[facility] LABCLIA [id number] [place] [address] [place] Monocytes/100 WBC (Bld) 6.2 % Normal [facility] Comment on above: Order Comment: Speci men Type: BLOOD SPECIMENOrdering Facility: [facility] Address: [address] [place] [address] Performed By: #### 4 537-7, 66079-2 ####[facility] LABCLIA [id number] [place] [address] [place] Neutrophils (Bld) [#/Vol] 3.98 10*3/uL Normal 1.45-7.50 [facility] Comment on above: Order Comment: Speci men Type: BLOOD SPECIMENOrdering Facility: [facility] Address: [address] [place] [address] Performed By: #### 4 537-7, 52382-5 ####[facility] LABCLIA [id number] [place] [address] [place] Neutrophils/100 WBC (Bld) 55.2 % Normal [facility] Comment on above: Order Comment: Speci men Type: BLOOD SPECIMENOrdering Facility: [facility] Address: [address] [place] [address] Performed By: #### 4 537-7, 25586-0 ####[facility] LABCLIA [id number] [place] [address] [place] Nucleated RBC (Bld) [#/Vol] 10*3/uL Normal <0.01 [facility] Comment on above: Order Comment: Speci men Type: BLOOD SPECIMENOrdering Facility: [facility] Address: [address] [place] [address] Performed By: #### 4 537-7, 78901-5 ####[facility] LABIA [id number] [place] [address] [place] Nucleated RBC/100 WBC (Bld) [Ratio] 0.0 /100 WBC Normal [facility] Comment on above: Order Comment: Speci men Type: BLOOD SPECIMENOrdering Facility: [facility] Address: [address] [place] [address] Performed By: #### 4 537-7, 14157-2 ####[facility] LABIA [id number] [place] [address] [place] Platelet mean volume (Bld) [Entitic vol] 10.5 fL Normal 9.0-12.7 [facility] Comment on above: Order Comment: Speci men Type: BLOOD SPECIMENOrdering Facility: [facility] Address: [address] [place] [address] Performed By: #### 4 537-7, 26510-3 ####[facility] LABIA [id number] [place] [address] [place] Platelets (Bld) [#/Vol] 257 10*3/uL Normal 150-400 [facility] Comment on above: Order Comment: Speci men Type: BLOOD SPECIMENOrdering Facility: [facility] Address: [address] [place] [address] Performed By: #### 4 537-7, 69429-7 ####[facility] LABIA [id number] [place] [id number] [place] RBC (Bld) [#/Vol] 4.17 10*6/uL Normal 3.90-5.20 [facility] Comment on above: Order Comment: Speci men Type: BLOOD SPECIMENOrdering Facility: [facility] Address: [address] [place] [address] Performed By: #### 4 537-7, 70200-9 ####[facility] LABCLIA [id number] [place] [address] [place] WBC (Bld) [#/Vol] 7.22 10*3/uL Normal 3.70-11.00 [facility] Comment on above: Order Comment: Speci men Type: BLOOD SPECIMENOrdering Facility: [facility] Address: [address] [place] [address] Performed By: #### 4 537-7, 28238-5 ####[facility] LABIA [id number] [place] [address] [place] CRP SerPl-ncon 09-21-2023 CRP [Mass/Vol] 1.4 mg/dL High <0.9 [facility] Comment on above: Order Comment: Speci men Type: BLOOD SPECIMENOrdering Facility: [facility] Address: [address] [place] [address] Performed By: #### 2 276-4, 1987-5, 3016-3, 69722-8 ####[facility] [id number] [place] [address] [place] ESR Westergren method (Bld) [Velocity]on 09-21-2023 ESR (Bld) [Velocity] 29 mm/h High 0-20 [facility] Comment on above: Order Comment: Speci men Type: BLOOD SPECIMENOrdering Facility: [facility] Address: [address] [place] [address] Performed By: #### 4 537-7, 62646-5 ####[facility] LABIA [id number] [place] [address] [place] Ferritin SerPl-mCncon 2023 Ferritin [Mass/Vol] 110.0 ng/mL Normal 14.7-205.1 [facility] Comment on above: Order Comment: Speci men Type: BLOOD SPECIMENOrdering Facility: [facility] Address: [address] [place] [address] Performed By: #### 2 276-4, 1988-5, 3016-3, 14305-2 ####[facility] LABIA [id number] [place] [address] [place] HbA1c (Bld)on 09-21-2023 Average glucose Estimated from glycated hemoglobin (Bld) [Mass/Vol] 114 mg/dL Normal [facility] Comment on above: Order Comment: Specmalachi men Type: BLOOD SPECIMENOrdering Facility: [facility] Address: [address] [place] [address] Result Comment: eAG: (Estimated average glucose) is a calculated value from HgbA1c and is merchandising representative of the average blood glucose level in the last 2-3 month period. Performed By: #### 5 5454-3 ####[facility] [id number] [address] STATES OF [facility] HbA1c (Bld) [Mass fraction] 5.6 % Normal 4.3-5.6 [facility] Comment on above: Order Comment: Shanda ignacio Type: BLOOD SPECIMENOrdering Facility: [facility] Address: [address] [place] [address] Result Comment: Amer ican Diabetes Association guidelines indicate that patients with HgbA1c in the range 5.7-6.4% are at increased risk for development of diabetes, and intervention by lifestyle modification may be beneficial. HgbA1c greater or equal to 6.5% is considered diagnostic of diabetes. Performed By: #### 5 5454-3 ####[facility] LABIA [id number] [place] [address] [place] Iron and Iron binding capaci ty panelon 09-21-2023 Iron [Mass/Vol] 75 ug/dL Normal 41-186 [facility] Comment on above: Order Comment: Shanda ignacio Type: BLOOD SPECIMENOrdering Facility: [facility] Address: [address] [place] [address] Performed By: #### 3 053-6, 3024-7, 38283-0, 77062-6 ####[facility] LABCLIA [id number] [address] [address] [place] Iron binding capacity [Mass/Vol] 254 ug/dL Normal 232-386 [facility] Comment on above: Order Comment: Speci men Type: BLOOD SPECIMENOrdering Facility: [facility] Address: [address] [place] [address] Performed By: #### 3 053-6, 3024-7, 57729-9, 75539-3 ####[facility] LABCLIA [id number] [place] [id number] [place] Iron/TIBC [Molar ratio] 29.5 % Normal 15.0-57.0 [facility] Comment on above: Order Comment: Speci men Type: BLOOD SPECIMENOrdering Facility: [facility] Address: [address] [place] [address] Performed By: #### 3 053-6, 3024-7, 64615-9, 06301-6 ####[facility] LABIA [id number] [place] [id number] [place] Lipid 1996 panelon 4 Cholesterol [Mass/Vol] 190 mg/dL Normal <200 [facility] Comment on above: Order Comment: Speci men Type: BLOOD SPECIMENOrdering Facility: [facility] Address: [address] [place] [address] Result Comment: <200 mg/dL, Desirable 200-239 mg/dL, Borderline high >239 mg/dL, High Performed By: #### 3 053-6, 3024-7, 67922-7, 47791-8 ####[facility] LABIA [id number] [place] [id number] [place] Cholesterol in HDL [Mass/Vol] 44 mg/dL Normal >39 [facility] Comment on above: Order Comment: Speci men Type: BLOOD SPECIMENOrdering Facility: [facility] Address: [address] [place] [address] Result Comment: 40-5 9 mg/dL, Acceptable >59 mg/dL, High: Negative risk factor for coronary heart disease <40 mg/dL, Low: Positive risk factor for coronary heart disease Performed By: #### 3 053-6, 3024-7, 09322-7, 58328-6 ####[facility] LABCLIA [id number] [facility]GE[facility] [address] [address] [place] Cholesterol in LDL [Mass/Vol] 128 mg/dL High <100 [facility] Comment on above: Order Comment: Speci men Type: BLOOD SPECIMENOrdering Facility: [facility] Address: [address] [place] [address] Result Comment: <100 mg/dL, Optimal 100-129 mg/dL, Near optimal/above optimal 130-159 mg/dL, Borderline high 160-189 mg/dL, High >189 mg/dL, Very high Secondary prevention optimal LDL Cholesterol levels are recommended to be < 70 mg/dL Performed By: #### 3 053-6, 3024-7, 00332-4, 31888-6 ####[facility] LABCLIA [id number] [place] [address] [place] Cholesterol in LDL/Cholesterol in HDL [Mass ratio] 2.91 {ratio} High <2.54 [facility] Comment on above: Order Comment: Speci men Type: BLOOD SPECIMENOrdering Facility: [facility] Address: [address] [place] [address] Result Comment: Refgia rahman: 1. National Cholesterol Education Program ATP III Guideline At-A-Glance Quick Desk Reference: National Heart, Lung, and Blood Powell. National Institutes of Health. 2001: NIH Publication No. 01-3305. 2. An International Atherosclerosis Society position paper: global recommendations for the management of dyslipidemia: executive summary, Atherosclerosis. 2014: 232(2):410-413. Performed By: #### 3 053-6, 3024-7, 53791-4, 28933-3 ####[facility] LABCLIA [id number] [place] [id number] [place] Cholesterol in VLDL [Mass/Vol] 18 mg/dL Normal <30 [facility] Comment on above: Order Comment: Speci men Type: BLOOD SPECIMENOrdering Facility: [facility] Address: [address] [place] [address] Performed By: #### 3 053-6, 3024-7, 33949-7, 19347-1 ####[facility] LABCLIA [id number] [place] [address] [place] Cholesterol non HDL [Mass/Vol] 146 mg/dL High <130 [facility] Comment on above: Order Comment: Speci men Type: BLOOD SPECIMENOrdering Facility: [facility] Address: [address] [place] [address] Result Comment: <130 mg/dL, Optimal 130-159 mg/dL, Near optimal/above optimal 160-189 mg/dL, Borderline high 190-219 mg/dL, High >219 mg/dL, Very high Secondary prevention optimal non HDL Cholesterol levels are recommended to be <100 mg/dL Performed By: #### 3 053-6, 3024-7, 62827-4, 63020-4 ####[facility] LABCLIA [id number] [place] [address] [place] Cholesterol.total/Ch olesterol in HDL [Mass ratio] 4.32 {ratio} Normal <5.10 [facility] Comment on above: Order Comment: Speci men Type: BLOOD SPECIMENOrdering Facility: [facility] Address: [address] [place] [address] Performed By: #### 3 053-6, 3024-7, 10424-2, 09347-7 ####[facility] LABCLIA [id number] [place] [address] [place] FASTING TIME 12 hrs Normal [facility] Comment on above: Order Comment: Speci men Type: BLOOD SPECIMENOrdering Facility: [facility] Address: [address] [place] [address] Performed By: #### 3 053-6, 3024-7, 06368-3, 41839-8 ####[facility] LABCLIA [id number] [place] [id number] [place] Triglyceride [Mass/Vol] 89 mg/dL Normal <150 [facility] Comment on above: Order Comment: Speci men Type: BLOOD SPECIMENOrdering Facility: [facility] Address: [address] [place] [address] Result Comment: <150 mg/dL, Normal 150-199 mg/dL, Borderline high 200-499 mg/dL, High >499 mg/dL, Very high Performed By: #### 3 053-6, 3024-7, 45054-3, 43708-8 ####[facility] LABCLIA [id number] [place] [address] [place] Magnesium SerPl-mCncon 09-20 Magnesium [Mass/Vol] 2.2 mg/dL Normal 1.7-2.3 [facility] Comment on above: Order Comment: Speci men Type: BLOOD SPECIMENOrdering Facility: [facility] Address: [address] [place] [address] Performed By: #### 2 276-4, 1987-5, 3016-3, 26185-5 ####[facility] LABCLIA [id number] [place] [address] [place] T3 SerPl-mCncon 09-21-2023 T3 [Mass/Vol] 173 ng/dL High 79-165 [facility] Comment on above: Order Comment: Speci men Type: BLOOD SPECIMENOrdering Facility: [facility] Address: [address] [place] [address] Performed By: #### 3 053-6, 3024-7, 35513-7, 14368-3 ####[facility] LABCLIA [id number] [place] [address] [place] T4 Free SerPl-mCncon 024 Free T4 [Mass/Vol] 1.1 ng/dL Normal 0.9-1.7 [facility] Comment on above: Order Comment: Shanda ignacio Type: BLOOD SPECIMENOrdering Facility: [facility] Address: [address] [place] [address] Performed By: #### 3 053-6, 3024-7, 69774-6, 32969-6 ####[facility] LABCLIA [id number] [place] [address] [place] TSH SerPl-aCncon 09-21-2023 TSH Qn 1.700 m[IU]/L Normal 0.270-4.200 [facility] Comment on above: Order Comment: Shanda ignacio Type: BLOOD SPECIMENOrdering Facility: [facility] Address: [address] [place] [address] Result Comment: If t he patient is , TSH reference range varies by gestational period: First Trimester (weeks 9-12): 0.180-2.990 mIU/L Second Trimester: 0.110-3.980 mIU/L Third Trimester: 0.480-4.710 mIU/L Max Ricci et al. A Practical Approach for the Verifications and Determination of Site- and Trimester-Specific Reference Intervals for Thyroid Function tests in . Thyroid, 2019:29:3:412-420. Rey Kim, et al. 2017 Guidelines of the [place] Thy[employer] for the Diagnosis and Management of Thyroid Disease during and the . Thyroid, 2017:27:3:315-389. Performed By: #### 2 276-4, 1987-5, 3016-3, 44423-4 ####[facility] LABIA [id number] [place] [id number] [place] CNOVon 09-06-2023 CNOV Office Visit (FAMPWS ) SWATHI WAHL ([id number]) 1990 F Date Time Provider Department 09/06/23 8:40 AM URSULA BE During your visit today, we recorded the following information about you: Pulse Respiration Blood pressure Weight 87/minute 16/minute 104/80 152.4 kg Ursula Be APRN.NUT THREADER 09/06/2023 10:32 AM Signed This is a [...] helping. Wrists and back. 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 Inflammatory markers were elevated on last check, [...] Abdomen: Abdome (more content not included)... Normal [facility] CNOVon 04-15-2023 CNOV Office Visit (UCWSTR ) SWATHI WAHL ([id number]) 1990 F Date Time Provider Department 04/15/23 10:15 AM PAOLO MAGAÑA [facility] During your visit today, we recorded the following information about you: Temperature Pulse Respiration Blood pressure 98.1 degrees 84/minute 16/minute 118/64 Weight Last Period 154 kg 04/14/23 Paolo Magaña APRN.NUT THREADER 04/15/2023 10:34 AM Signed Subjective HPI Nontoxic-appearing [...] oropharyngeal erythema. (more content not included)... Normal [facility] .Auto Diffon 10-17-2020 Basophil, Absolute 0.10 10 3/mcL Normal 0.00-0.19 [facility] ([place]) Comment on above: Performed By: #### A DIFF, CBC, ANEU, ALC, BMP #### [address] [address] #### GFR #### [address] [address] Basophils/100 WBC (Bld) 0.9 % Normal 0.0-2.5 [facility] ([place]) Comment on above: Performed By: #### A DIFF, CBC, ANEU, ALC, BMP #### [address] [address] #### GFR #### [address] [address] Eosinophil, Absolute 0.10 10 3/mcL Normal 0.00-0.40 A [facility] ([place]) Comment on above: Performed By: #### A DIFF, CBC, ANEU, ALC, BMP #### [address] [address] #### GFR #### [address] [address] Eosinophils/100 WBC (Bld) 1.6 % Normal 0.0-7.0 [facility] ([place] Comment on above: Performed By: #### A DIFF, CBC, ANEU, ALC, BMP #### [address] [address] #### GFR #### [address] [address] Lymphocyte, Absolute 2.70 10 3/mcL Normal 0.77-3.85 A [facility] ([place] Comment on above: Performed By: #### A DIFF, CBC, ANEU, ALC, BMP #### [address] [address] #### GFR #### [address] [address] Lymphocytes/100 WBC (Bld) 32.6 % Normal 10.0-50.0 [facility] ([place] Comment on above: Performed By: #### A DIFF, CBC, ANEU, ALC, BMP #### [place] [address] #### GFR #### [address] [address] Monocyte, Absolute 0.60 10 3/mcL Normal 0.15-1.00 [facility] ([place] Comment on above: Performed By: #### A DIFF, CBC, ANEU, ALC, BMP #### [address] [address] #### GFR #### [address] [address] Monocytes/100 WBC (Bld) 7.5 % Normal 1.7-13.0 [facility] ([place] Comment on above: Performed By: #### A DIFF, CBC, ANEU, ALC, BMP #### [address] [address] #### GFR #### [address] [address] Neutrophils/100 WBC (Bld) 57.4 % Normal 37.0-80.0 [facility] ([place] Comment on above: Performed By: #### A DIFF, CBC, ANEU, ALC, BMP #### [address] [address] #### GFR #### [address] [address] .GFRon 10-17-2020 GFR 109 ml/min/1.73sqm Normal [facility] ([place]) Comment on above: Result Comment: GFR Population [...] A DIFF, CBC, ANEU, ALC, BMP #### [address] [address] #### GFR #### [address] [address] GFR Non- 90 ml/min/1.73sqm Normal [facility] ([place]) Comment on above: Result Comment: GFR Population [...] A DIFF, CBC, ANEU, ALC, BMP #### [place] [address] #### GFR #### [place] [address] .NEUABSon 10-17-2020 Neutrophil, Absolute 4.80 10 3/mcL Normal 2.85-6.16 A [facility] ([place]) Comment on above: Performed By: #### A DIFF, CBC, ANEU, ALC, BMP #### [place] [address] #### GFR #### [place] [address] Nicole 10-17-2020 Ethanol Level 45 mg/dL High 0-3 [facility] ([place]) Comment on above: Performed By: #### A DIFF, CBC, ANEU, ALC, BMP #### [place] [address] #### GFR #### [place] [address] BMPon 10-17-2020 BUN/Creatinine Ratio 19 ratio Normal 7-27 [facility] ([place]) Comment on above: Performed By: #### A DIFF, CBC, ANEU, ALC, BMP #### [place] [address] #### GFR #### [place] [address] Calcium [Mass/Vol] 9.0 mg/dL Normal 8.4-10.2 [facility] ([place] Comment on above: Performed By: #### A DIFF, CBC, ANEU, ALC, BMP #### [address] [address] #### GFR #### [address] [address] Chloride [Moles/Vol] 103 mmol/L Normal 98-107 [facility] ([place] Comment on above: Performed By: #### A DIFF, CBC, ANEU, ALC, BMP #### [address] [address] #### GFR #### [address] [address] CO2 [Moles/Vol] 24 mmol/L Normal 22-29 [facility] ([place] Comment on above: Performed By: #### A DIFF, CBC, ANEU, ALC, BMP #### [address] [address] #### GFR #### [address] [address] Creatinine [Mass/Vol] 0.75 mg/dL Normal 0.55-1.02 [facility] ([place] Comment on above: Performed By: #### A DIFF, CBC, ANEU, ALC, BMP #### [address] [address] #### GFR #### [address] [address] Electrolyte Balance 12.0 mEq/L Normal [facility] ([place] Comment on above: Performed By: #### A DIFF, CBC, ANEU, ALC, BMP #### [address] [address] #### GFR #### [address] [address] Glucose [Mass/Vol] 100 mg/dL Normal 70-105 [facility] ([place] Comment on above: Performed By: #### A DIFF, CBC, ANEU, ALC, BMP #### [address] [address] #### GFR #### [address] [address] Potassium [Moles/Vol] 4.5 mmol/L Normal 3.5-5.1 [facility] ([place] Comment on above: Performed By: #### A DIFF, CBC, ANEU, ALC, BMP #### [address] [address] #### GFR #### [address] [address] Sodium [Moles/Vol] 139 mmol/L Normal 136-145 [facility] ([place] Comment on above: Performed By: #### A DIFF, CBC, ANEU, ALC, BMP #### [address] [address] #### GFR #### [place] [address] Urea nitrogen [Mass/Vol] 14 mg/dL Normal 7-18 [facility] ([place] Comment on above: Performed By: #### A DIFF, CBC, ANEU, ALC, BMP #### [place] [address] #### GFR #### [place] [address] CBCon 10-17-2020 Erythrocyte distribution width (RBC) [Ratio] 14.7 % High 11.5-14.5 [facility] ([place]) Comment on above: Performed By: #### A DIFF, CBC, ANEU, ALC, BMP #### [place] [address] #### GFR #### [place] [address] Hematocrit (Bld) [Volume fraction] 42.7 % Normal 37.0-47.0 [facility] ([place] Comment on above: Performed By: #### A DIFF, CBC, ANEU, ALC, BMP #### [place] [address] #### GFR #### [place] [address] Hgb 14.3 G/dL Normal 12.0-16.0 [facility] ([place] Comment on above: Performed By: #### A DIFF, CBC, ANEU, ALC, BMP #### [address] [address] #### GFR #### [address] [address] MCH (RBC) [Entitic mass] 31.5 pg High 27.0-31.2 [facility] ([place] Comment on above: Performed By: #### A DIFF, CBC, ANEU, ALC, BMP #### [place] [address] #### GFR #### [address] [address] MCHC 33.4 G/dL Normal 33.0-37.0 [facility] ([place] Comment on above: Performed By: #### A DIFF, CBC, ANEU, ALC, BMP #### [place] [address] #### GFR #### [place] [address] MCV (RBC) [Entitic vol] 94.2 fL High 80.0-94.0 [facility] ([place]) Comment on above: Performed By: #### A DIFF, CBC, ANEU, ALC, BMP #### [place] [address] #### GFR #### [address] [address] Platelet 227 10 3/mcL Normal 130-400 [facility] ([place] Comment on above: Performed By: #### A DIFF, CBC, ANEU, ALC, BMP #### [place] [address] #### GFR #### [address] [address] Platelet mean volume (Bld) [Entitic vol] 8.5 fL Normal 7.4-10.4 [facility] ([place]) Comment on above: Performed By: #### A DIFF, CBC, ANEU, ALC, BMP #### [place] [address] #### GFR #### [place] [address] RBC 4.54 10 6/mcL Normal 4.20-5.40 [facility] ([place]) Comment on above: Performed By: #### A DIFF, CBC, ANEU, ALC, BMP #### [address] [address] #### GFR #### [place] [address] WBC 8.40 10 3/mcL Normal 4.60-10.80 [facility] ([place]) Comment on above: Performed By: #### A DIFF, CBC, ANEU, ALC, BMP #### [address] [address] #### GFR #### [place] [address] [id number] 10-17-2020 Date of Onset [id number] Invalid Interpretation Code [facility] ([place]) Comment on above: Performed By: #### C OVD19 #### [place] [address] Employed in Healthcare No [facility] ([place] Comment on above: Performed By: #### C OVD19 #### [place] [address] First Test No [facility] ([place] Comment on above: Performed By: #### C OVD19 #### [place] [address] Hospitalized No [facility] ([place] Comment on above: Performed By: #### C OVD19 #### [place] [address] ICU No [facility] ([place] Comment on above: Performed By: #### C OVD19 #### [place] [address] Not [facility] ([place] Comment on above: Performed By: #### C OVD19 #### [place] [address] Resides in Congregate Care Setting No [facility] ([place] Comment on above: Performed By: #### C OVD19 #### [facility] [address] [place] [address] SARS-CoV-2 (COVID-19) RNA ESHA+probe Ql (Unsp spec) Negative Normal Negative [facility] ([place]) Comment on above: Performed By: #### C OVD19 #### [facility] [address] [place] [address] SARS-CoV-2 (COVID-19) RNA ESHA+probe Ql (Unsp spec) Normal [facility] ([place]) Comment on above: Result Comment: Nega [...] Int Performed By: #### C OVD19 #### [address] [address] Symptomatic as Defined by CDC Unknown Normal [facility] ([place]) Comment on above: Performed By: #### C OVD19 #### [place] [id number] PREGUon 10-17-2020 HCG ( test) Ql (U) Negative Normal [facility] ([place]) Comment on above: Performed By: #### P REGU, TOXSC #### [address] [address] test (u) int Not detected Invalid Interpretation Code [facility] ([place]) Comment on above: Performed By: #### P REGU, TOXSC #### [address] [address] TOXSCon 10-17-2020 U Ampheta (AO) Positive [facility] ([place] Comment on above: Performed By: #### P REGU, TOXSC #### [address] [address] U Honey (AO) Negative [facility] ([place] Comment on above: Performed By: #### P REGU, TOXSC #### [address] [address] U Tan (AO) Negative [facility] ([place] Comment on above: Performed By: #### P REGU, TOXSC #### [address] [address] U Cannab (AO) Negative [facility] ([place] Comment on above: Performed By: #### P REGU, TOXSC #### [address] [address] U Cocaine (AO) Negative [facility] ([place] Comment on above: Performed By: #### P REGU, TOXSC #### [address] [address] U Methadone (AO) Negative [facility] ([place] Comment on above: Performed By: #### P REGU, TOXSC #### [address] [address] U PCP (AO) Negative [facility] ([place] Comment on above: Performed By: #### P REGU, TOXSC #### [address] [address] U TCA (AO) Positive [facility] ([place] Comment on above: Performed By: #### P REGU, TOXSC #### [address] [address] Urine Opiates (AO) Negative [facility] ([place] Comment on above: Performed By: #### P REGU, TOXSC #### [place] [address] [place], [place] [address] Acetamnphn Lvlon 11-07-2017 Acetaminophen mass conc <10 Normal 0-15 [facility] Comment on above: Result Comment: Meliza nol - Therapeutic 10-30 ug/ml Toxic 4 hr. Post ingestion >150 ug/ml Toxic 8hr Post ingestion >75 ug/ml Toxic 12hr. Post ingestion >40 ug/ml Performed By: #### 2 003606 ####JOE RwzUneq0559 [place] [address] Auto Diffon 11-07-2017 Basophils Auto #/vol (Bld) 0.1 E3/mcL Normal 0.0-0.2 [facility] Comment on above: Order Comment: Order Added by Discern Expert. Performed By: #### 2 790247 ####JOE WetzelTcrCbfr7714 [place] [address] Basophils/100 WBC Auto (Bld) 0.7 % Normal 0.0-2.0 [facility] Comment on above: Order Comment: Order Added by Discern Expert. Performed By: #### 2 256601 ####JOE VllCyeg2456 [place] [address] Eos Absolute 0.2 E3/mcL Normal 0.0-0.7 [facility] Comment on above: Order Comment: Order Added by Discern Expert. Performed By: #### 2 726910 ####JOE FlfRrhe0670 [place] [address] Eosinophils/100 leukocytes 1.8 % Normal 0.0-11.0 [facility] Comment on above: Order Comment: Order Added by Discern Expert. Performed By: #### 2 895468 ####JOE PjuIqxf3459 [place] [address] Lymphocytes 3.0 E3/mcL Normal 1.2-3.4 [facility] Comment on above: Order Comment: Order Added by Discern Expert. Performed By: #### 2 460212 ####JOE CehIryk5011 [place] [address] Lymphocytes/100 leukocytes 30.9 % Normal 20.0-55.0 [facility] Comment on above: Order Comment: Order Added by Discern Expert. Performed By: #### 2 275855 ####JOE Martinezo[address]25 [place] [address] Bond Absolute 0.6 E3/mcL Normal 0.0-0.7 [facility] Comment on above: Order Comment: Order Added by Discern Expert. Performed By: #### 2 462124 ####JOE Martinezo[address] [place] [address] Monocytes/100 leukocytes 6.6 % Normal 0.0-10.0 [facility] Comment on above: Order Comment: Order Added by Discern Expert. Performed By: #### 2 318426 ####JOE Mart[address]zo[address] [place] [address] Neutro Absolute 5.9 E3/mcL Normal 1.4-6.5 [facility] Comment on above: Order Comment: Order Added by Discern Expert. Performed By: #### 2 446362 ####JOE [address]zo[address] [place] [address] Neutro Auto 60.0 % Normal 37.0-75.0 [facility] Comment on above: Order Comment: Order Added by Discern Expert. Performed By: #### 2 680032 ####OJE [address]zo[address] [place] [address] CBC w/ Auto Diffon 8 Erythrocyte distribution width Auto Ratio (RBC) 18.0 % High 11.5-14.5 [facility] Comment on above: Performed By: #### 2 259965 ####JOE [address]zo[address] [place] [address] Erythrocytes (RBC) 3.83 E6/mcL Low 3.90-5.40 [facility] Comment on above: Performed By: #### 2 588058 ####JOE [address] [place] [address] Hematocrit (HCT) 33.0 % Low 36.0-48.0 [facility] Comment on above: Performed By: #### 2 252931 ####JOE [address] [place] [address] Hemoglobin mass conc (Bld) 10.7 g/dL Low 12.0-16.0 [facility] Comment on above: Performed By: #### 2 989345 ####JOE [address] [place] [address] MCH 27.9 pg Normal 27.0-31.0 [facility] Comment on above: Performed By: #### 2 921431 ####JOE EwnDdin3845 [place] [address] MCHC mass conc (RBC) 32.4 g/dL Low 33.0-37.0 [facility] Comment on above: Performed By: #### 2 448792 ####JOE [address] [place] [address] MCV 86.0 fL Normal 78.0-100.0 [facility] Comment on above: Performed By: #### 2 564358 ####JOE RjjTfpc3880 [place] [address] Platelet mean volume (PMV) 8.7 fL Normal 7.4-11.0 [facility] Comment on above: Performed By: #### 2 145360 ####JOE [address] [place] [address] Platelets 250 E3/mcL Normal 130-400 [facility] Comment on above: Performed By: #### 2 500094 ####JOE [address] [place] [address] WBC (Leukocytes) 9.9 E3/mcL Normal 3.6-11.0 [facility] Comment on above: Performed By: #### 2 178604 ####JOEAbhay WetzelIgyEjzr9433 [place] [id number] CMPon 11-07-2017 Alanine aminotransferase (ALT) 17 Int._Unit/L Normal 10-40 [facility] Comment on above: Performed By: #### 2 739260 ####JOEAbhay WetzelBnwJknx4109 [place] [id number] Albumin 3.4 g/dL Normal 3.2-5.0 [facility] Comment on above: Performed By: #### 2 779181 ####JOE Ramirez[address] [place] [address] Albumin/Globulin Ratio 1.1 {ratio} Normal 1.1-1.9 [facility] Comment on above: Performed By: #### 2 801380 ####JOE [address] [place] [address] Alk Phos 49 Int._Unit/L Normal 42-121 [facility] Comment on above: Performed By: #### 2 107891 ####JOE Ramirez[address] [place] [address] Aspartate aminotransferase (AST) 15 Int._Unit/L Normal 10-42 [facility] Comment on above: Performed By: #### 2 501978 ####JOE Ramirez[address] [place] [address] Bili Total 0.6 mg/dL Normal 0.2-1.0 [facility] Comment on above: Performed By: #### 2 631424 ####JOE Ramirez[address] [place] [address] BUN/Creatinine Ratio 28.6 ratio Normal 5.4-30.0 [facility] Comment on above: Performed By: #### 2 101566 ####JOE UgdCfuy4396 [place] [address] Creatinine 0.7 mg/dL Normal 0.6-1.3 [facility] Comment on above: Performed By: #### 2 561422 ####JOE GjfJocm8642 [place] [address] Globulin 3.1 g/dL Normal 2.0-4.0 [facility] Comment on above: Performed By: #### 2 886232 ####JOE FkrKqoq3642 [place] [address] Protein 6.5 g/dL Normal 6.4-8.3 [facility] Comment on above: Performed By: #### 2 349530 ####JOE [address] [place] [address] Urea nitrogen 20 mg/dL High 7-18 [facility] Comment on above: Performed By: #### 2 934468 ####JOE NblLhhd7634 [place] [address] Calcium 8.9 mg/dL Normal 8.4-10.2 [facility] Comment on above: Performed By: #### 2 904484 ####JOE EqxVqis7076 [place] [address] Chloride 107 mmol/L Normal 98-107 [facility] Comment on above: Performed By: #### 2 817866 ####JOE Ramirez[address] [place] [address] CO2 24.9 mmol/L Normal 24.0-30.0 [facility] Comment on above: Performed By: #### 2 018350 ####JOE OgjKnjf7461 [place] [address] Glucose mass conc 123 mg/dL High 70-99 [facility] Comment on above: Performed By: #### 2 206618 ####JOE RmtPojy6725 [place] [address] Potassium molar conc 3.3 mmol/L Low 3.5-5.1 [facility] Comment on above: Performed By: #### 2 812783 ####JOE JywImjh2606 [place] [address] Sodium 138 mmol/L Normal 136-145 [facility] Comment on above: Performed By: #### 2 226241 ####JOE WetzelVzrRlml0649 [place] [address] Ethanolon 11-07-2017 Ethanol Lvl <5 Normal 0-15 [facility] Comment on above: Result Comment: SAMP LES WITH CONCENTRATIONS <15 MG/DL SHOULD BEINTERPRETED NEGATIVE. FOR MEDICAL USE ONLY Performed By: #### 2 885651 ####JOE WetzelYbuCids0598 [place] [id number] Morphon 11-07-2017 Anisocytosis presence 2+ Normal [facility] Comment on above: Order Comment: Order Added by Discern Expert. Performed By: #### 2 274987 ####JOE Urinalysis Manual Cgrsiwxqzx6691 [place] [id number] Erythrocyte morphology SEE MORPHOLOGY Normal [facility] Comment on above: Order Comment: Order Added by Discern Expert. Performed By: #### 2 330377 ####JOE Urinalysis Manual Pvcijvjlbh2248 [place] [address] Salicylateon 11-07-2017 Salicylate Lvl <4 Low 15-30 [facility] Comment on above: Performed By: #### 2 390531 ####JOE OxpSxlp7754 [place] [address] U BhCG Qlton 11-07-2017 HCG.beta subunit Qn Negative Normal Neg [facility] Comment on above: Performed By: #### 2 958073 ####JOE Urinalysis Manual Tsuhpastvm0912 [place] [address] U Drug Screenon 11-07-2017 U Amph Scr Negative Normal [facility] Comment on above: Result Comment: Resu lts for medical use only. Confirmation of positive results will be done when requested. Specimens are kept for one week. Performed By: #### 2 013393 ####JOE ZjlCdeg3004 [place] [address] U Honey Scr Negative Normal [facility] Comment on above: Performed By: #### 2 869480 ####JOE LsyJegt3983 [place] [address] U Benzodia Scr Negative [facility] Comment on above: Performed By: #### 2 205470 ####JOE WcgGwnm0436 [place] [address] U Cannab Scr Negative Normal [facility] Comment on above: Performed By: #### 2 348728 ####JOE AkqZadj3049 [place] [address] U Cocaine Scr Negative Normal [facility] Comment on above: Performed By: #### 2 371073 ####JOE OalVrbx8825 [place] [address] U Opiate Scr Negative Normal [facility] Comment on above: Performed By: #### 2 900944 ####JOE DsuBijt1083 [place] [address] U PCP Scr Negative Normal [facility] Comment on above: Performed By: #### 2 463827 ####JOE OblIovj7643 [place] [address] UA Completeon 11-07-2017 UA Blood Negative Normal Negative [facility] Comment on above: Performed By: #### 8 [id number] ####JOE Urinalysis Automated Qjpkexggcn7499 [place] [address] UA Amorph Macie Trace Abnormal None [facility] Comment on above: Performed By: #### 8 [id number] ####JOE Urinalysis Automated Xtowcvjmoz1808 [place] [address] UA Bacteria Trace Abnormal None [facility] Comment on above: Performed By: #### 8 [id number] ####JOE Urinalysis Automated [id number] [place] [address] UA Clarity Cloudy Abnormal Clear [facility] Comment on above: Performed By: #### 8 [id number] ####JOE Urinalysis Automated Vjpdqrdqnc2775 [place] [address] UA Leuk Est 3+ Abnormal Negative [facility] Comment on above: Performed By: #### 8 [id number] ####JOE Urinalysis Automated [address] [place] [address] UA Mucous Trace Abnormal Trace [facility] Comment on above: Performed By: #### 8 [id number] ####JOE Urinalysis Automated Mxihmklfag2706 [place] [address] UA Nitrite Negative Normal Negative [facility] Comment on above: Performed By: #### 8 [id number] ####JOE Urinalysis Automated [address] [place] [address] UA pH 7.0 Normal 4.6-8.0 [facility] Comment on above: Performed By: #### 8 [id number] ####JOE Urinalysis Automated Lqadrxvokl7146 [place] [address] UA Protein 1+ Abnormal Negative [facility] Comment on above: Performed By: #### 8 [id number] ####JOE Urinalysis Automated Zefjzmkiuh8093 [place] [address] UA Spec Grav 1.021 Normal 1.003-1.030 [facility] Comment on above: Performed By: #### 8 [id number] ####JOE Urinalysis Automated [address] [place] [address] UA Squam Epithelial 5-10 Abnormal 0-5 [facility] Comment on above: Performed By: #### 8 [id number] ####JOE Urinalysis Automated Wnukwsxdij2638 [place] [address] [address]A Urobilinogen Negative Normal [facility] Comment on above: Performed By: #### 8 [id number] ####JOE Urinalysis Automated Humddwqgjw9322 [place] [address] UA WBC >50 Abnormal 0-5 [facility] Comment on above: Performed By: #### 8 [id number] ####JOE Urinalysis Automated [address] [place] [id number] Urine, color Yellow Normal Yellow [facility] Comment on above: Performed By: #### 8 [id number] ####JOE Urinalysis Automated Jkjseijmnp4603 [place] [address] Urine, erythrocytes 3-5 Abnormal 0-3 [facility] Comment on above: Performed By: #### 8 [id number] ####JOE Urinalysis Automated Assimsusjx2508 [place] [address] Urine, glucose Negative Normal Negative [facility] Comment on above: Performed By: #### 8 [id number] ####JOE Urinalysis Automated Dtwbzpvewk0100 [place] [address] Urine, ketones presence Negative Normal Negative [facility] Comment on above: Performed By: #### 8 [id number] ####JOE Urinalysis Automated Okgjmgvurg4820 [place] [address] Urine, urobilinogen Negative Normal Negative [facility] Comment on above: Performed By: #### 8 [id number] ####JOE Urinalysis Automated Pwnkjayise7761 [place] [address] eGFRon 11-07-2017 eGFR (non-black) mL/min/{1.73_m2} Normal [facility] Comment on above: Order Comment: Order added by Discern Expert. Performed By: #### 1 [id number] ####JOE DacRbkc6882 [place] [address] zzplt morphon 11-07-2017 Platelet morphology NORMAL Normal [facility] Comment on above: Performed By: #### 2 [id number] ####JOE Urinalysis Manual [address] [place] [id number] Platelets NORMAL Normal [facility] Comment on above: Performed By: #### 2 [id number] ####JOE Urinalysis Manual Imofbwejwi2007 [place] [address] Vital Signs Date Time Vital Sign Value Performing Clinician Facility 03-17-2024 10:57-0400 Body mass index (BMI) [Ratio] 55.03 kg/m2 Osmani Marroquin MD Work Phone: [facility] 03-17-2024 10:57-0400 Body temperature 98.01 [degF] Osmani Marroquin MD Work Phone: [facility] 03-17-2024 10:57-0400 Body weight 157 kg Osmani Marroquin MD Work Phone: [facility] 03-17-2024 10:57-0400 Diastolic blood pressure 78 mm[Hg] Osmani Marroquin MD Work Phone: [facility] 03-17-2024 10:57-0400 Heart rate 87 /min Osmani Marroquin MD Work Phone: [facility] 03-17-2024 10:57-0400 Respiratory rate 18 /min Osmani Marroquin MD Work Phone: [facility] 03-17-2024 10:57-0400 SaO2% (BldA) [Mass fraction] 99 % Osmani Marroquin MD Work Phone: [facility] 03-17-2024 10:57-0400 Systolic blood pressure 132 mm[Hg] Osmani Marroquin MD Work Phone: [facility] 03-14-2024 09:35-0400 Body mass index (BMI) [Ratio] 54.68 kg/m2 Alberta Edward MD Work Phone: [facility] 03-14-2024 09:35-0400 Body weight 156 kg Alberta Edward MD Work Phone: [facility] 03-14-2024 09:35-0400 Diastolic blood pressure 74 mm[Hg] Alberta Edward MD Work Phone: [facility] 03-14-2024 09:35-0400 Heart rate 66 /min Alberta Edward MD Work Phone: [facility] 03-14-2024 09:35-0400 Systolic blood pressure 132 mm[Hg] Alberta Edward MD Work Phone: [facility] 03-13-2024 10:11-0400 Body height 168.9 cm Angela Santos MD Work Phone: [facility] 03-13-2024 10:11-0400 Body mass index (BMI) [Ratio] 54.85 kg/m2 Angela Santos MD Work Phone: [facility] 03-13-2024 10:11-0400 Body weight 156.49 kg Angela Santos MD Work Phone: [facility] 03-13-2024 10:11-0400 Diastolic blood pressure 84 mm[Hg] Angela Santos MD Work Phone: [facility] 03-13-2024 10:11-0400 Heart rate 90 /min Angela Santos MD Work Phone: [facility] 03-13-2024 10:11-0400 SaO2% (BldA) [Mass fraction] 99 % Angela Santos MD Work Phone: [facility] 03-13-2024 10:11-0400 Systolic blood pressure 144 mm[Hg] Angela Santos MD Work Phone: [facility] 03-08-2024 08:57-0400 Body mass index (BMI) [Ratio] 54.9 kg/m2 Michelle Roberts DIE DRAWING CHECKER.NUT THREADER Work Phone: [facility] 03-08-2024 08:57-0400 Body temperature 97.39 [degF] Michelle Roberts DIE DRAWING CHECKER.NUT THREADER Work Phone: [facility] 03-08-2024 08:57-0400 Body weight 156.8 kg Michelle Moomaw DIE DRAWING CHECKER.NUT THREADER Work Phone: [facility] 03-08-2024 08:57-0400 Diastolic blood pressure 86 mm[Hg] Michelle Moomaw DIE DRAWING CHECKER.NUT THREADER Work Phone: [facility] 03-08-2024 08:57-0400 Heart rate 100 /min Michelle Moomaw DIE DRAWING CHECKER.NUT THREADER Work Phone: [facility] 03-08-2024 08:57-0400 Respiratory rate 21 /min Michelle Moomaw DIE DRAWING CHECKER.NUT THREADER Work Phone: [facility] 03-08-2024 08:57-0400 SaO2% (BldA) [Mass fraction] 97 % Michelle Moomaw DIE DRAWING CHECKER.NUT THREADER Work Phone: [facility] 03-08-2024 08:57-0400 Systolic blood pressure 140 mm[Hg] Michelle Moomaw DIE DRAWING CHECKER.NUT THREADER Work Phone: [facility] 11-22-2023 10:16-0400 Body height 169 cm Manuela Pearce DIE DRAWING CHECKER.CNM Work Phone: [facility] 11-22-2023 10:16-0400 Body mass index (BMI) [Ratio] 53.52 kg/m2 Manuela Pearce DIE DRAWING CHECKER.CNM Work Phone: [facility] 11-22-2023 10:16-0400 Body weight 152.86 kg Manuela Pearce DIE DRAWING CHECKER.CNM Work Phone: [facility] 11-22-2023 10:16-0400 Diastolic blood pressure 72 mm[Hg] Manuela Pearce DIE DRAWING CHECKER.CNM Work Phone: [facility] 11-22-2023 10:16-0400 Systolic blood pressure 120 mm[Hg] Manuela Pearce DIE DRAWING CHECKER.CNM Work Phone: [facility] 11-15-2023 09:56-0400 Body mass index (BMI) [Ratio] 54.55 kg/m2 Ursula Hernandezagen DIE DRAWING CHECKER.NUT THREADER Work Phone: [facility] 11-15-2023 09:56-0400 Body weight 153.32 kg Ursula Haagen DIE DRAWING CHECKER.NUT THREADER Work Phone: [facility] 11-15-2023 09:56-0400 Diastolic blood pressure 92 mm[Hg] Ursula Haagen DIE DRAWING CHECKER.NUT THREADER Work Phone: [facility] 11-15-2023 09:56-0400 Heart rate 88 /min Ursula Haagen DIE DRAWING CHECKER.NUT THREADER Work Phone: [facility] 11-15-2023 09:56-0400 Respiratory rate 16 /min Ursula Haagen DIE DRAWING CHECKER.NUT THREADER Work Phone: [facility] 11-15-2023 09:56-0400 SaO2% (BldA) [Mass fraction] 95 % Ursula Haagen DIE DRAWING CHECKER.NUT THREADER Work Phone: [facility] 11-15-2023 09:56-0400 Systolic blood pressure 124 mm[Hg] Ursula Haagen DIE DRAWING CHECKER.NUT THREADER Work Phone: [facility] 09-06-2023 08:45-0400 Body weight 152.41 kg Ursula Haagen DIE DRAWING CHECKER.NUT THREADER Work Phone: [facility] 09-06-2023 08:45-0400 Diastolic blood pressure 80 mm[Hg] Ursula Haagen DIE DRAWING CHECKER.NUT THREADER Work Phone: [facility] 09-06-2023 08:45-0400 Heart rate 87 /min Ursula Haagen DIE DRAWING CHECKER.NUT THREADER Work Phone: [facility] 09-06-2023 08:45-0400 Respiratory rate 16 /min Ursula Haagen DIE DRAWING CHECKER.NUT THREADER Work Phone: [facility] 09-06-2023 08:45-0400 SaO2% (BldA) [Mass fraction] 96 % Ursula Haagen DIE DRAWING CHECKER.NUT THREADER Work Phone: [facility] 09-06-2023 08:45-0400 Systolic blood pressure 104 mm[Hg] Ursula Haagen DIE DRAWING CHECKER.NUT THREADER Work Phone: [facility] 04-15-2023 10:21-0500 Body temperature 98.1 [degF] [facility] DIE DRAWING CHECKER.NUT THREADER Work Phone: [facility] 04-15-2023 10:21-0500 Body weight 153.95 kg [facility] DIE DRAWING CHECKER.NUT THREADER Work Phone: [facility] 04-15-2023 10:21-0500 Diastolic blood pressure 64 mm[Hg] [facility] DIE DRAWING CHECKER.NUT THREADER Work Phone: [facility] 04-15-2023 10:21-0500 Heart rate 84 /min [facility] DIE DRAWING CHECKER.NUT THREADER Work Phone: [facility] 04-15-2023 10:21-0500 Respiratory rate 16 /min [facility] DIE DRAWING CHECKER.NUT THREADER Work Phone: [facility] 04-15-2023 10:21-0500 SaO2% (BldA) [Mass fraction] 96 % [facility] DIE DRAWING CHECKER.NUT THREADER Work Phone: [facility] 04-15-2023 10:21-0500 Systolic blood pressure 118 mm[Hg] [facility] DIE DRAWING CHECKER.NUT THREADER Work Phone: [facility] 07-01-2022 15:47-0500 Body weight 166.92 kg NA Arriaga PA-C Work Phone: [facility] 07-01-2022 15:47-0500 Diastolic blood pressure 78 mm[Hg] NA Arriaga PA-C Work Phone: [facility] 07-01-2022 15:47-0500 Heart rate 91 /min NA Arriaga PA-C Work Phone: [facility] 07-01-2022 15:47-0500 Respiratory rate 16 /min NA Arriaga PA-C Work Phone: [facility] 07-01-2022 15:47-0500 SaO2% (BldA) [Mass fraction] 96 % NA Arriaga PA-C Work Phone: [facility] 07-01-2022 15:47-0500 Systolic blood pressure 120 mm[Hg] NA Arriaga PA-C Work Phone: [facility] 05-03-2022 11:36-0500 Body weight 159.21 kg Ursula Haagen DIE DRAWING CHECKER.NUT THREADER Work Phone: [facility] 05-03-2022 11:36-0500 Diastolic blood pressure 86 mm[Hg] Ursula Haagen DIE DRAWING CHECKER.NUT THREADER Work Phone: [facility] 05-03-2022 11:36-0500 Heart rate 67 /min Ursula Haagen DIE DRAWING CHECKER.NUT THREADER Work Phone: [facility] 05-03-2022 11:36-0500 Respiratory rate 18 /min Ursula Haagen DIE DRAWING CHECKER.NUT THREADER Work Phone: [facility] 05-03-2022 11:36-0500 SaO2% (BldA) [Mass fraction] 95 % Ursula Haagen DIE DRAWING CHECKER.NUT THREADER Work Phone: [facility] 05-03-2022 11:36-0500 Systolic blood pressure 124 mm[Hg] Ursula Haagen DIE DRAWING CHECKER.NUT THREADER Work Phone: [facility] 03-24-2022 11:49-0400 Body weight 155.58 kg Ursula Haagen DIE DRAWING CHECKER.NUT THREADER Work Phone: [facility] 03-24-2022 11:49-0400 Diastolic blood pressure 90 mm[Hg] Ursula Haagen DIE DRAWING CHECKER.NUT THREADER Work Phone: [facility] 03-24-2022 11:49-0400 Heart rate 75 /min Ursula Haagen DIE DRAWING CHECKER.NUT THREADER Work Phone: [facility] 03-24-2022 11:49-0400 Respiratory rate 18 /min Ursula Haagen DIE DRAWING CHECKER.NUT THREADER Work Phone: [facility] 03-24-2022 11:49-0400 SaO2% (BldA) [Mass fraction] 98 % Ursula Haagen DIE DRAWING CHECKER.NUT THREADER Work Phone: [facility] 03-24-2022 11:49-0400 Systolic blood pressure 136 mm[Hg] Ursula Be DIE DRAWING CHECKER.NUT THREADER Work Phone: [facility] 04-24-2021 18:35-0500 Body temperature 99.86 [degF] DOLORES ZENG MD [facility] 04-24-2021 18:35-0500 Diastolic blood pressure 86 mm[Hg] DOLORES ZENG MD [facility] 04-24-2021 18:35-0500 Heart rate 88 /min DOLORES ZNEG MD [facility] 04-24-2021 18:35-0500 Respiratory rate 16 /min DOLORES ZENG MD [facility] 04-24-2021 18:35-0500 Systolic blood pressure 147 mm[Hg] DOLORES ZENG MD [facility] Encounters Encounter Date Encounter Type Care Provider Facility Start: 03-17-2024 End: 03-17-2024 Office outpatient visit 15 minutes Osmani Marroquin MD Work Phone: [facility] Comment on above: URI, acute (Primary Dx) Start: 03-14-2024 End: 03-14-2024 ambulatory ALBERTA EDWARD Facility:[facility] Start: 03-14-2024 End: 03-14-2024 Office consultation new/estab patient 80 min Alberta Edward MD Work Phone: Rheumatology Comment on above: Polyarthralgia Start: 03-13-2024 End: 03-13-2024 ambulatory ANGELA SANTOS Facility:[facility] Start: 03-13-2024 End: 03-13-2024 Patient encounter [...] Start: 03-08-2024 End: 03-08-2024 ambulatory JONY MARTELL Facility:[facility] Start: 03-08-2024 End: 03-08-2024 Patient encounter procedure Michelle Roberts APRN.NUT THREADER Work Phone: [place] [facility] Comment on above: Nausea (Primary Dx); Diarrhea, unspecified type Start: 12-13-2023 End: 12-14-2023 Emergency department patient visit JONY FREEMAN JASBIR [facility] Start: 12-06-2023 Telephone encounter Ursula shelton APRN.NUT THREADER Work Phone: [facility] [place] Comment on above: Insurance Authorizat ion ([employer] ) Start: 12-05-2023 ambulatory Ursula Be DIE DRAWING CHECKER.NUT THREADER Work Phone: [facility] [place] Comment on above: [employer] Start: 11-22-2023 End: 11-22-2023 ambulatory Ursula Be DIE DRAWING CHECKER.NUT THREADER Work Phone: [facility] [place] Comment on [...] encounter status Manuela Pearce APRN.CNSilvestre Work Phone: [facility] Start: 11-15-2023 End: 11-15-2023 ambulatory [facility] Facility:[facility] Start: 11-15-2023 End: 11-15-2023 Office outpatient visit 15 minutes Ursula Be APRN.NUT THREADER Work Phone: [facility] [place] Comment on above: Morbid obesity with BMI of 50.0-59.9, adult (HCC) (Primary Dx) Start: 09-26-2023 Telephone encounter Jony Martell MD Work Phone: [facility] [place] Comment on above: Insurance Authorizat ion (Metformin ER) Start: 09-23-2023 ambulatory Ursula Be APRN.NUT THREADER Work Phone: [facility] [place] Comment on above: Lab work Start: 09-21-2023 End: 09-21-2023 ambulatory [facility] Facility:[facility] Start: 09-06-2023 End: 09-06-2023 [facility] Facility:[facility] Start: 09-06-2023 End: 09-06-2023 Patient encounter procedure Ursula Be APRN.NUT THREADER Work Phone: [facility] [place] Comment on above: Wellness examination (Primary Dx); Acquired hypothyroidism; Prediabetes; Polyarthralgia; Elevated sed rate; Vitamin D deficiency; Anemia, unspecified type; Gastroesophageal reflux disease, unspecified whether esophagitis present; Encounter for immunization Start: 09-06-2023 End: 09-06-2023 Patient encounter status Ursula Be APRN.NUT THREADER Work Phone: [facility] Work Phone: Start: 04-15-2023 End: 04-15-2023 ambulatory JONY MARTELL Facility:[facility] Start: 04-15-2023 End: 04-15-2023 Office outpatient visit 15 minutes Paolo Magaña APRN.NUT THREADER Work Phone: [facility] [place] [facility] Comment on above: Acute conjunctivitis of right eye, unspecified acute conjunctivitis type (Primary Dx) Start: 03-13-2023 Refill Ursula Be APRN.NUT THREADER Work Phone: [facility] [place] Comment on above: Refill Request Start: 01-20-2023 End: 01-20-2023 Patient encounter procedure Paz Hoskins OD Work Phone: Ophthalmology Comment on above: 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); Meibomian gland dysfunction (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 Start: 11-25-2022 Admission to [facility] Jony Martell MD Work Phone: [facility] [place] Comment on above: Gastric surgery Start: 11-25-2022 ambulatory Jony Martell MD Work Phone: [facility] [place] Start: 10-08-2022 ambulatory Urusla Be APRN.NUT THREADER Work Phone: [facility] [place] Comment on above: Carpool tunnel Start: 08-15-2022 Refill Ursula Be APRN.NUT THREADER Work Phone: [facility] [place] Comment on above: Refill Request; Refi ll Request Pro[employer] Start: 08-13-2022 Telephone encounter Ursula shelton APRN.NUT THREADER Work Phone: [facility] [place] Comment on above: Results Start: 07-01-2022 End: 07-01-2022 Patient encounter procedure Silvestre Arriaga PA-C Work Phone: [facility] [place] Comment on above: Subclinical hypothyr oidism (Primary Dx); Numbness and tingling in right hand; 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); Left hip pain Start: 06-30-2022 ambulatory Ursula Be APRN.CNP Work Phone: [facility] [place] Comment on above: Pain Start: 05-11-2022 Telephone encounter Ursula shelton APRN.NUT THREADER Work Phone: [facility] [place] Comment on above: Opened In Error Start: 05-07-2022 Telephone encounter Ursula shelton APRN.NUT THREADER Work Phone: [facility] [place] Comment on above: Results Start: 05-03-2022 End: 05-03-2022 Office outpatient visit 25 minutes Ursula Be APRN.NUT THREADER Work Phone: [facility] [place] Comment on above: Hypertension, essent ial (Primary Dx); Prediabetes; Anemia, unspecified type; Acquired hypothyroidism; Polyarthralgia; Class 3 severe obesity without serious comorbidity with body mass index (BMI) of 50.0 to 59.9 in adult, unspecified obesity type (HCC); Vitamin D deficiency; ANDREW (obstructive sleep apnea) Start: 03-24-2022 End: 03-24-2022 Office outpatient visit 15 minutes Ursula Be APRN.NUT THREADER Work Phone: [facility] [place] Comment on above: Hypertension, essent ial (Primary Dx); Panic disorder without agoraphobia Start: 04-24-2021 End: 04-24-2021 Emergency department patient visit DOLORES ZENG MD [facility] Start: 11-07-2017 End: 11-07-2017 Emergency department patient visit Michelle Fam Facility:[facility] Procedures Date Procedure Procedure Detail Performing Clinician Start: 12-13-2023 Urinalysis JONY GROSSMAN Comment on above: Result Comment: URIN ALYSIS Performed By: #### 2 [id number] #### [facility],[address] [place] [address] Start: 09-06-2023 Ads-Fi-BIONTCinemacraft COVI D-19 VACCINE (2022- SEASON) AGE 12+ YR Ursula Be APRN.NUT THREADER Work Phone: Tonsil and adenoid structure (body structure) DOLORES ZENG MD Plan of Treatment Date Care Activity Detail Author Start: 11-21-2028 Screening for malignant neoplasm of cervix Cervical Cancer Screening [facility] Start: 11-26-2024 End: 11-26-2024 Patient encounter procedure 11/26/2024 8:15 AM EDT Office Visit OB/Gynecology [address] [place] [address] Manuela Pearce APRN.CNM [address] [place] [address] Annual OB/Gynecology Comment on above: Annual Start: 11-22-2024 End: 11-22-2024 Patient encounter procedure 11/22/2024 10:45 AM EDT Office Visit OB/Gynecology [address] [place] [address] Manuela Pearce APRN.CNM [address] [place] [address] Annual OB/Gynecology Comment on above: Annual Start: 11-21-2024 BP Controlled (<130/80) BP Controlled (<130/80) [facility] Start: 11-14-2024 Annual PCP Team Chronic Disease Visit Annual PCP Team Chronic Disease Visit [facility] Start: 09-05-2024 Annual PCP Team Chronic Disease Visit Annual PCP Team Chronic Disease Visit [facility] Start: 09-02-2024 Urine microalbumin profile DTaP,Tdap,Td Vaccine (2 - Td or Tdap) [facility] Start: 06-29-2024 End: 06-29-2024 Patient encounter procedure 06/29/2024 8:50 AM EST Office Visit OB/Gynecology [address] [place] [address] Angela Crawford MD [address] [place] [address] weight management follow up OB/Gynecology Comment on above: weight management follow up Start: 06-07-2024 End: 06-07-2024 Patient encounter procedure 06/07/2024 11:00 AM EST Office Visit Neurology [address] [place] [address] Meghann Monsalve APRN.NUT THREADER [address] [place] [address] Morbid obesity with BMI of 50.0-59.9, adult [...] EST Office Visit OB/Gynecology [address] [place] [address] Angela Crawford MD [address] [place], [place] [id number] weight management follow up OB/Gynecology Comment on above: weight management follow up Start: 04-27-2024 End: 04-27-2024 Patient encounter procedure 04/27/2024 1:30 PM EST Office Visit OB/Gynecology [address] [place] [address] Angela Crawford MD [address] [place] [address] weight management follow up OB/Gynecology Comment on above: weight management follow up Start: 04-15-2024 BP Controlled (<130/80) BP Controlled (<130/80) [facility] Start: 03-14-2024 End: 06-13-2024 MAYLIN BY IFA SCREEN MAYLIN BY IFA SCREEN Lab Routine Polyarthralgia Expected: 03/14/2024, Expires: 06/13/2024 [facility] Work Phone: Comment on above: Expected: 03/14/2024, Expires: Start: 03-14-2024 End: 06-13-2024 C reactive protein [Mass/volume] in Serum or Plasma C-REACTIVE PROTEIN Lab Routine Polyarthralgia Expected: 03/14/2024, Expires: 06/13/2024 [facility] Comment on above: Expected: 03/14/2024, Expires: Start: 03-14-2024 End: 06-13-2024 CBC W Auto Differential panel - Blood COMPLETE BLOOD COUNT AND DIFFERENTIAL Lab Routine Polyarthralgia Expected: 03/14/2024, Expires: 06/13/2024 [facility] Comment on above: Expected: 03/14/2024, Expires: Start: 03-14-2024 End: 06-13-2024 Comprehensive metabolic 2000 panel - Serum or Plasma COMPREHENSIVE METABOLIC PANEL Lab Routine Polyarthralgia Expected: 03/14/2024, Expires: 06/13/2024 [facility] Comment on above: Expected: 03/14/2024, Expires: Start: 03-14-2024 End: 06-13-2024 Cyclic citrullinated peptide IgG Ab [Units/volume] in Serum or Plasma CCP ANTIBODY IGG Lab Routine Polyarthralgia Expected: 03/14/2024, Expires: 06/13/2024 [facility] Comment on above: Expected: 03/14/2024, Expires: Start: 03-14-2024 End: 06-13-2024 DNA double strand Ab [Units/volume] in Serum by Immunoassay DNA AB DS + CONF BLD Lab Routine Polyarthralgia Expected: 03/14/2024, Expires: 06/13/2024 [facility] Comment on above: Expected: 03/14/2024, Expires: Start: 03-14-2024 End: 06-13-2024 Erythrocyte sedimentation rate SEDIMENTATION RATE, WESTERGREN Lab Routine Polyarthralgia Expected: 03/14/2024, Expires: 06/13/2024 [facility] Comment on above: Expected: 03/14/2024, Expires: Start: 03-14-2024 End: 06-13-2024 Extractable nuclear Ab panel - Serum ANTI DAKOTA ID Lab Routine Polyarthralgia Expected: 03/14/2024, Expires: 06/13/2024 [facility] Comment on above: Expected: 03/14/2024, Expires: Start: 03-14-2024 End: 06-13-2024 Rheumatoid factor [Units/volume] in Serum or Plasma RHEUMATOID FACTOR Lab Routine Polyarthralgia Expected: 03/14/2024, Expires: 06/13/2024 [facility] Comment on above: Expected: 03/14/2024, Expires: Start: 03-14-2024 End: 03-14-2024 Patient encounter procedure 03/14/2024 9:40 AM EDT Office Visit Rheumatology [address] [place], [place] [id number] Alberta Edward MD [address] [place] [address] Polyarthralgia [M25.50] Rheumatology Comment on above: Polyarthralgia [M25.50] Start: 03-13-2024 End: 06-12-2024 25-hydroxyvitamin D3 [Mass/volume] in Serum or Plasma VITAMIN D 25 HYDROXY Lab Routine Encounter for vitamin deficiency screening Expected: 03/13/2024, Expires: 06/12/2024 [facility] Work Phone: Comment on above: Expected: 03/13/2024, Expires: Start: 03-13-2024 End: 06-12-2024 Comprehensive metabolic 2000 panel - Serum or Plasma COMPREHENSIVE METABOLIC PANEL Lab Routine Screening for diabetes mellitus Screening for metabolic disorder Expected: 03/13/2024, Expires: 06/12/2024 [facility] Comment on above: Expected: 03/13/2024, Expires: Start: 03-13-2024 End: 06-12-2024 Insulin [Units/volume] in Serum or Plasma INSULIN ASSAY BLOOD Lab Routine Screening for diabetes mellitus Expected: 03/13/2024, Expires: 06/12/2024 [facility] Comment on above: Expected: 03/13/2024, Expires: Start: 03-13-2024 End: 03-13-2024 Patient encounter procedure 03/13/2024 10:20 AM EDT Office Visit OB/Gynecology [address] [place], [place] [id number] Angela Crawford MD [address] [place], [place] [id number] Morbid obesity with BMI of 50.0-59.9, adult ([facility]) [E66.01, Z68.43] OB/Gynecology Comment on above: Morbid obesity with BMI of 50.0-59.9, ad ult ([facility]) [E66.01, Z68.43] Start: 02-29-2024 End: 02-29-2024 Patient encounter procedure 02/29/2024 2:00 PM EDT Office Visit Rheumatology [address] [place] [address] [place] [address] [place] [address] Polyarthralgia [M25.50 Rheumatology Comment on above: Polyarthralgia [M25.50 Start: 01-29-2024 Covid-19 Vaccine ( season) Covid-19 Vaccine ( season) [facility] Start: 01-29-2024 Influenza vaccination [facility] Start: 11-22-2023 End: 11-22-2023 Patient encounter procedure 11/22/2023 10:00 AM EDT Office Visit OB/Gynecology [address] [place], [place] [id number] Manuela Pearce APRN.[facility] [address] [place] [address] ANNUAL OB/Gynecology Comment on above: ANNUAL Start: 09-06-2023 End: 12-06-2023 25-hydroxyvitamin D3 [Mass/volume] in Serum or Plasma VITAMIN D 25 HYDROXY Lab Routine Vitamin D deficiency Expected: 09/06/2023, Expires: 12/06/2023 [facility] Work Phone: Comment on above: Expected: 09/06/2023, Expires: Start: 09-06-2023 End: 12-06-2023 C reactive protein [Mass/volume] in Serum or Plasma C-REACTIVE PROTEIN (CRP) Lab Routine Polyarthralgia Elevated sed rate Expected: 09/06/2023, Expires: 12/06/2023 [facility] Work Phone: Comment on above: Expected: 09/06/2023, Expires: 4 Start: 09-06-2023 End: 12-06-2023 CBC W Auto Differential panel - Blood CBC + DIFF Lab Routine Anemia, unspecified type Expected: 09/06/2023, Expires: 12/06/2023 [facility] Work Phone: Comment on above: Expected: 09/06/2023, Expires: Start: 09-06-2023 End: 12-06-2023 Erythrocyte sedimentation rate SED RATE WESTERGREN Lab Routine Polyarthralgia Elevated sed rate Expected: 09/06/2023, Expires: 12/06/2023 [facility] Work Phone: Comment on above: Expected: 09/06/2023, Expires: Start: 09-06-2023 End: 12-06-2023 Ferritin [Mass/volume] in Serum or Plasma FERRITIN BLD Lab Routine Anemia, unspecified type Expected: 09/06/2023, Expires: 12/06/2023 [facility] Work Phone: Comment on above: Expected: 09/06/2023, Expires: Start: 09-06-2023 End: 12-06-2023 Hemoglobin A1c in Blood HGB A1C Lab Routine Prediabetes Expected: 09/06/2023, Expires: 12/06/2023 [facility] Work Phone: Comment on above: Expected: 09/06/2023, Expires: Start: 09-06-2023 End: 12-06-2023 Iron and Iron binding capacity panel - Serum or Plasma IRON + TIBC Lab Routine Anemia, unspecified type Expected: 09/06/2023, Expires: 12/06/2023 [facility] Work Phone: Comment on above: Expected: 09/06/2023, Expires: Start: 09-06-2023 End: 12-06-2023 Lipid 1996 panel - Serum or Plasma LIPID PANEL BASIC Lab Routine Prediabetes Expected: 09/06/2023, Expires: 12/06/2023 [facility] Work Phone: Comment on above: Expected: 09/06/2023, Expires: Start: 09-06-2023 End: 12-06-2023 Magnesium [Mass/volume] in Serum or Plasma MAGNESIUM BLD Lab Routine Gastroesophageal reflux disease, unspecified whether esophagitis present Expected: 09/06/2023, Expires: 12/06/2023 [facility] Work Phone: Comment on above: Expected: 09/06/2023, Expires: Start: 09-06-2023 End: 12-06-2023 Thyrotropin [Units/volume] in Serum or Plasma TSH BLD Lab Routine Acquired hypothyroidism Expected: 09/06/2023, Expires: 12/06/2023 [facility] Work Phone: Comment on above: Expected: 09/06/2023, Expires: Start: 09-06-2023 End: 12-06-2023 Thyroxine (T4) free [Mass/volume] in Serum or Plasma T4 FREE/FREE THYROX Lab Routine Acquired hypothyroidism Expected: 09/06/2023, Expires: 12/06/2023 [facility] Work Phone: Comment on above: Expected: 09/06/2023, Expires: 4 Start: 09-06-2023 End: 12-06-2023 Triiodothyronine (T3) [Mass/volume] in Serum or Plasma T3 BLD Lab Routine Acquired hypothyroidism Expected: 09/06/2023, Expires: 12/06/2023 [facility] Work Phone: Comment on above: Expected: 09/06/2023, Expires: Start: 07-26-2023 ANNUAL PCP TEAM CHRONIC DISEASE VISIT ANNUAL PCP TEAM CHRONIC DISEASE VISIT [facility] Start: 07-26-2023 BP CONTROLLED (<130/80) BP CONTROLLED (<130/80) [facility] Start: 07-01-2023 ANNUAL PCP TEAM CHRONIC DISEASE VISIT ANNUAL PCP TEAM CHRONIC DISEASE VISIT [facility] Start: 07-01-2023 BP CONTROLLED (<130/80) BP CONTROLLED (<130/80) [facility] Start: 06-01-2023 PAP TESTING PAP TESTING [facility] Start: 06-01-2023 Screening for malignant neoplasm of cervix Pap Testing [facility] Start: 05-03-2023 ANNUAL PCP TEAM CHRONIC DISEASE VISIT ANNUAL PCP TEAM CHRONIC DISEASE VISIT [facility] Start: 03-24-2023 ANNUAL PCP TEAM CHRONIC DISEASE VISIT ANNUAL PCP TEAM CHRONIC DISEASE VISIT [facility] Start: 01-28-2023 Influenza vaccination [facility] Start: 07-15-2022 COVID-19 VACCINE (#1) COVID-19 VACCINE (#1) [facility] Comment on above: Postponed from 05/15/1989 (Declined at t his time) Start: 07-15-2022 PNEUMOCOCCAL (1 - PCV) PNEUMOCOCCAL (1 - PCV) [facility] Comment on above: Postponed from 1994 (Declined at t his time) Start: 07-15-2022 Urine microalbumin profile DTAP,TDAP,TD (1 - Tdap) [facility] Comment on above: Postponed from 11/14/2007 (Declined at t his time) Start: 07-01-2022 End: 08-31-2022 Thyroglobulin Ab [Units/volume] in Serum or Plasma THYROGLOBULIN AB Lab Routine Subclinical hypothyroidism Expected: 07/01/2022, Expires: 08/31/2022 [facility] Work Phone: Comment on above: Expected: 07/01/2022, Expires: Start: 07-01-2022 End: 08-31-2022 THYROID PEROXIDASE ANTIBODY BLOOD THYROID PEROXIDASE ANTIBODY BLOOD Lab Routine Subclinical hypothyroidism Expected: 07/01/2022, Expires: 08/31/2022 [facility] Work Phone: Comment on above: Expected: 07/01/2022, Expires: Start: 05-03-2022 End: 07-03-2022 25-hydroxyvitamin D3 [Mass/volume] in Serum or Plasma VITAMIN D 25 HYDROXY Lab Routine Vitamin D deficiency Expected: 05/03/2022, Expires: 07/03/2022 [facility] Work Phone: Comment on above: Expected: 05/03/2022, Expires: 3 Start: 05-03-2022 End: 07-03-2022 C reactive protein [Mass/volume] in Serum or Plasma C-REACTIVE PROTEIN (CRP) Lab Routine Polyarthralgia Expected: 05/03/2022, Expires: 07/03/2022 [facility] Work Phone: Comment on above: Expected: 05/03/2022, Expires: 3 Start: 05-03-2022 End: 07-03-2022 CBC W Auto Differential panel - Blood CBC + DIFF Lab Routine Anemia, unspecified type Expected: 05/03/2022, Expires: 07/03/2022 [facility] Work Phone: Comment on above: Expected: 05/03/2022, Expires: 3 Start: 05-03-2022 End: 07-03-2022 Comprehensive metabolic 2000 panel - Serum or Plasma COMP METABOLIC PANEL Lab Routine Hypertension, essential Prediabetes Expected: 05/03/2022, Expires: 07/03/2022 [facility] Work Phone: Comment on above: Expected: 05/03/2022, Expires: 3 Start: 05-03-2022 End: 07-03-2022 Cyclic citrullinated peptide IgG Ab [Units/volume] in Serum or Plasma CCP ANTIBODY IGG Lab Routine Polyarthralgia Expected: 05/03/2022, Expires: 07/03/2022 [facility] Work Phone: Comment on above: Expected: 05/03/2022, Expires: 3 Start: 05-03-2022 End: 07-03-2022 Erythrocyte sedimentation rate SED RATE WESTERGREN Lab Routine Polyarthralgia Expected: 05/03/2022, Expires: 07/03/2022 [facility] Work Phone: Comment on above: Expected: 05/03/2022, Expires: 3 Start: 05-03-2022 End: 07-03-2022 Ferritin [Mass/volume] in Serum or Plasma FERRITIN BLD Lab Routine Anemia, unspecified type Expected: 05/03/2022, Expires: 07/03/2022 [facility] Work Phone: Comment on above: Expected: 05/03/2022, Expires: 3 Start: 05-03-2022 End: 07-03-2022 Hemoglobin A1c in Blood HGB A1C Lab Routine Prediabetes Expected: 05/03/2022, Expires: 07/03/2022 [facility] Work Phone: Comment on above: Expected: 05/03/2022, Expires: 3 Start: 05-03-2022 End: 07-03-2022 Iron and Iron binding capacity panel - Serum or Plasma IRON + TIBC Lab Routine Anemia, unspecified type Expected: 05/03/2022, Expires: 07/03/2022 [facility] Work Phone: Comment on above: Expected: 05/03/2022, Expires: 3 Start: 05-03-2022 End: 07-03-2022 Lipid 1996 panel - Serum or Plasma LIPID PANEL BASIC Lab Routine Prediabetes Expected: 05/03/2022, Expires: 07/03/2022 [facility] Work Phone: Comment on above: Expected: 05/03/2022, Expires: 3 Start: 05-03-2022 End: 07-03-2022 Nuclear Ab [Presence] in Serum by Immunoassay MAYLIN BLOOD Lab Routine Polyarthralgia Expected: 05/03/2022, Expires: 07/03/2022 [facility] Work Phone: Comment on above: Expected: 05/03/2022, Expires: 3 Start: 05-03-2022 End: 07-03-2022 Rheumatoid factor [Units/volume] in Serum or Plasma RHEUMATOID FACTOR BL Lab Routine Polyarthralgia Expected: 05/03/2022, Expires: 07/03/2022 [facility] Work Phone: Comment on above: Expected: 05/03/2022, Expires: 3 Start: 05-03-2022 End: 07-03-2022 Thyrotropin [Units/volume] in Serum or Plasma TSH BLD Lab Routine Acquired hypothyroidism Expected: 05/03/2022, Expires: 07/03/2022 [facility] Work Phone: Comment on above: Expected: 05/03/2022, Expires: 3 Start: 05-03-2022 End: 07-03-2022 Thyroxine (T4) free [Mass/volume] in Serum or Plasma T4 FREE/FREE THYROX Lab Routine Acquired hypothyroidism Expected: 05/03/2022, Expires: 07/03/2022 [facility] Work Phone: Comment on above: Expected: 05/03/2022, Expires: 3 Start: 05-03-2022 End: 07-03-2022 Triiodothyronine (T3) [Mass/volume] in Serum or Plasma T3 BLD Lab Routine Acquired hypothyroidism Expected: 05/03/2022, Expires: 07/03/2022 [facility] Work Phone: Comment on above: Expected: 05/03/2022, Expires: 3 Start: 06-01-2021 Screening for malignant neoplasm of cervix Cervical Cancer Screening [facility] Start: 2018 HPV TESTING HPV TESTING [facility] Start: 2018 Screening for malignant neoplasm of cervix HPV Testing [facility] Start: 11-14-2007 Urine microalbumin profile [facility] Start: 2006 BP CONTROLLED (<130/80) BP CONTROLLED (<130/80) [facility] Start: 05-15-1989 COVID-19 VACCINE (#1) COVID-19 VACCINE (#1) [facility] Start: 1988 HEPATITIS B (1 of 3 - 3-dose series) HEPATITIS B (1 of 3 - 3-dose series) [facility] Start: 1988 Hepatitis B Vaccine (1 of 3 - 3-dose series) Hepatitis B Vaccine (1 of 3 - 3-dose series) [facility] COVID & INFLUENZA A/ B & RSV PCR, ROUTINE COVID & INFLUENZA A/B & RSV PCR, ROUTINE Microbiology Routine URI, acute Ordered: 03/17/2024 [facility] Work Phone: Comment on above: Ordered: 03/17/2024 End: 03-13-2025 HOME SLEEP APNEA TEST (HSAT) HOME SLEEP APNEA TEST (HSAT) Procedures Routine Morbid obesity with BMI of 50.0-59.9, adult (HCC) ANDREW (obstructive sleep apnea) Elevated blood pressure reading without diagnosis of hypertension Malaise and fatigue 1 Occurrences starting 03/13/2024 until 03/13/2025 [facility] Comment on above: 1 Occurrences starting 03/13/2024 until 03/13/2025 PAP TEST PAP TEST Lab Jennifer gipson Screening for cervical cancer Encounter for screening for human papillomavirus (HPV) 11/22/2023 10:[address] [facility] Work Phone: End: 06-02-2023 PAP TITRATION PSG (CPAP, BIPAP, ASV) PAP TITRATION PSG (CPAP, BIPAP, ASV) Procedures Routine ANDREW (obstructive sleep apnea) 1 Occurrences starting 05/03/2022 until 06/02/2023 [facility] Work Phone: Comment on above: 1 Occurrences starting 05/03/2022 until 06/02/2023 End: 04-14-2025 XR Foot - bilateral AP and Lateral and oblique XR FOOT GENERAL 3V AP/LAT/OBL BILATERAL Radiology Routine Polyarthralgia 1 Occurrences starting 03/14/2024 until 04/14/2025 [facility] Comment on above: 1 Occurrences starting 03/14/2024 until 04/14/2025 End: 04-14-2025 XR Hand - bilateral PA and Lateral and Oblique XR HAND GENERAL 3V PA/LAT/OBL BILATERAL Radiology Routine Polyarthralgia 1 Occurrences starting 03/14/2024 until 04/14/2025 [facility] Comment on above: 1 Occurrences starting 03/14/2024 until 04/14/2025 End: 04-13-2025 XR Knee - bilateral 4 Views XR KNEE GENERAL 4V AP BOTH/PA BOTH/LAT/MERC BILATERAL Radiology Routine Polyarthralgia 1 Occurrences starting 03/14/2024 until 04/13/2025 [facility] Comment on above: 1 Occurrences starting 03/14/2024 until 04/13/2025 End: 04-13-2025 XR Lumbar spine 3 Views XR LUMBAR GENERAL 3V AP/LAT/L5-S1 Radiology Routine Polyarthralgia 1 Occurrences starting 03/14/2024 until 04/13/2025 [facility] Comment on above: 1 Occurrences starting 03/14/2024 until 04/13/2025 End: 04-14-2025 XR Sacroiliac Joint Views XR SACROILIAC JOINTS 2V AP PELVIS/FERGUESON Radiology Routine Polyarthralgia 1 Occurrences starting 03/14/2024 until 04/14/2025 [facility] Comment on above: 1 Occurrences starting 03/14/2024 until 04/14/2025 [facility] Immunizations Immunization Date Immunization Notes Care Provider Alexis mccann 09-06-2023 COVID-19 vaccine, ag e 12+ yr, season (PFIZER-BIONTCinemacraft) Ursula Be APRN.CNP Work Phone: [facility] 02-24-2022 influenza, seasonal, injectable Osmani Marroquin MD Work Phone: [facility] 02-24-2022 influenza virus vacc ine, unspecified formulation Ursula Be DIE DRAWING CHECKER.NUT THREADER Work Phone: [facility] 06-09-2019 influenza, injectabl e, quadrivalent, contains preservative Ursula Be DIE DRAWING CHECKER.NUT THREADER Work Phone: [facility] 05-12-2015 influenza, injectabl e, quadrivalent, preservative free Osmani Marroquin MD Work Phone: [facility] 09-02-2014 tetanus toxoid, redu alisha diphtheria toxoid, and acellular pertussis vaccine, adsorbed Osmani Marroquin MD Work Phone: [facility] Payers Date Payer Category Payer Unknown [id number] 2017 Unknown 2017 Medicaid [id number] 1988 Unknown [id number] Social History Date Type Detail Facility Start: 10-17-2020 Light tobacco smoker (finding) [facility] Sex [facility]igned At [facility] Start: 03-24-2022 [facility] Start: 03-24-2022 End: 03-08-2024 Tobacco use and exposure Smokeless tobacco non-user [facility] Start: 03-24-2022 End: 03-17-2024 Alcohol intake Current drinker of alcohol (finding) [facility] Start: 03-24-2022 Tobacco Comment half a pack daily [facility] Start: 11-27-2014 Alcohol Comment rarely [facility] Start: 1988 Sex Assigned At Not on file [facility] Start: 05-03-2022 End: 03-08-2024 Tobacco smoking status NHIS Ex-smoker [facility] Work Phone: End: 01-28-2022 History of tobacco use Current smoker [facility] Work Phone: End: 01-28-2022 History of tobacco use Cigarette Smoker [facility] Work Phone: Start: 01-20-2023 End: 03-13-2024 History of Social function [facility] Start: 01-20-2023 End: 03-13-2024 Tobacco use panel [facility] Adult Depression Screening Assessment 0 [facility] Clinical Notes 12-09-2018 to 03-17-2024 Osmani [...] Osmani Marroquin MD documented in this encounter [facility] 10-16-2024 History of Presen t illness Narrative Images from the original note were not included. Rheumatology Outpatient Clinic Date of Service: 03/14/2024 Patient: Swathi Wahl Medical Record: [id number] Primary Care Physician: Jony Martell MD Referring Provider: Ursula Be [address] [place] [address] Last Rheumatology visit: None at [facility] Chief complaint: New Patient Consultation requested [...] to have scalp psoriasis, 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 08/2023 Sed [...] Impression: IMPRESSION: No evidence of active disease. Wireworker Supervisor: VIKI Transcribe Date/Time: Apr 02 2015 10:41A ... Last XR Cervical Spine - Impression Only No resulted procedures found. Health Maintenance Current Immunizations Reviewed on 07/19/2015 Name Date COVID-19 vaccine ([employer]) 09/06/2023 influenza (IIV4) vaccine 06/09/2019 Physical Exam VITAL SIGNS: BP 132/74 Pulse 66 Wt 343 lb 14.7 oz (156.0kg) LMP 02/28/2024 GENERAL APPEARANCE: Well groomed. In no distress. SKIN: [place] scaly lesions over scalp with no erythema [...] evaluate for inflammatory arthritis, I will obtain MALYIN, anti-DAKOTA, dsDNA, RF, CCP, CBC, CMP, sed [...] which included preparing to see the patient, [id number] patient care, completing clinical documentation, obtaining and/or reviewing separately obtained history, performing a medically appropriate examination, counseling and educating the patient/family/caregiver, and ordering medications, tests, or procedures. This note was partially generated with the assistance of [employer] voice recognition software. An attempt was made to correct any dictation errors however there may be some incorrect words, spellings, and punctuation. Alberta Edward MD [facility] Rheumatology Associate Staff [facility] Warehouse Supervisor 3[employer] Shiftsoft iron inspector [facility] documented in this encounter [facility] 03-14-2024 Note HNO ID: [id number] Author: ALBERTA EDWARD MD Service: ? Author Type: Physician Type: Progress Notes Filed: 03/14/2024 10:34 Note Text: Rheumatology Outpatient Clinic Date of Service: 03/14/2024 Patient: Swathi Wahl Medical Record: [id number] Primary Care Physician: Jony Martell MD Referring Provider: Ursula Be [address] [facility] [address] Last Rheumatology visit: None at [facility] Chief complaint: New Patient Consultation requested [...] to have scalp psoriasis, 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 08/2023 Sed [...] Substance Use Topics (more content not included)... [facility] 03-13-2024 Note HNO ID: [id number] Author: ANGELA CRAWFORD MD Service: ? Author [...] - D - 5-6pm eats large portions- french meals- tacos, burritos, meatloaf, lasagna, roast, green beans S - typically Fluids: milk (whole milk)- 16oz glass 3x day, 16oz water bottle 4-7 per day Bedtime -7-9pm Quality of diet: 24hr recall suggests in between diet. Characterization of diet:Unstructured, excessive cravings, evening snacking, increased consumption of sugar sweetened beverages (milk), and skip meals. Medical Records Director of impaired eating habits:excessive hunger, boredom, emotion, [...] AOM Medications: Bupropion and Naltrexone- taking through script editor Weight Promoting Medications: gabapentin and Other lamotrigine Diet/weight loss History: Past weight loss attempts? anti-obesity medications Phentermine. Diet and exercise Exercise: Regular exercise: walking Strength/resistance exercise:no Barriers to regular exercise? yes - joint pain and skin pain Work-related activity:Active. 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 [facility] 03-13-2024 History of Presen t illness Narrative [...] - D - 5-6pm eats large portions- french meals- tacos, burritos, meatloaf, lasagna, roast, green beans S - typically Fluids: milk (whole milk)- 16oz glass 3x day, 16oz water bottle 4-7 per day Bedtime -7-9pm Quality of diet: 24hr recall suggests in between diet. Characterization of diet:Unstructured, excessive cravings, evening snacking, increased consumption of sugar sweetened beverages (milk), and skip meals. Medical Records Director of impaired eating habits:excessive hunger, boredom, emotion, [...] AOM Medications: Bupropion and Naltrexone- taking through script editor Weight Promoting Medications: gabapentin and Other lamotrigine Diet/weight loss History: Past weight loss attempts? anti-obesity medications Phentermine. Diet and exercise Exercise: Regular exercise: walking Strength/resistance exercise:no Barriers to regular exercise? yes - joint pain and skin pain Work-related activity:Active. 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 -- We discussed several strategies [...] training and cardiovascular exercise is the best detention plan. An overall goal of 150-200 minutes [...] will send chart to make sure patient appointment coordinator follows up - Discussed not candidate for phentermine. Consider Trulicity / topiramate. Reviewed both. Will need BC for Topiramate- pt prefers POP - referral to nutrition placed- [facility] referral placed and [...] which included preparing to see the patient, [id number] patient care, completing clinical documentation, obtaining and/or reviewing separately obtained history, performing a medically appropriate examination, counseling and educating the patient/family/caregiver, and ordering medications, tests, or procedures. Angela Fonseca MD, FACOG, DABOM documented in this encounter [facility] 03-13-2024 Instructions Angela Crawford MD - [...] slots. This should not be done on [facility] as you will not be scheduled appropriately and will need to be rescheduled. We appreciate that you have entrusted us with your health and know that we are committed to this process with you. Sincerely, Angela Santos MD, DMITRIY YING & Latasha Esquivel CNP Advanced Education from the [employer] Obesity Obesity is a disease that affects nearly one-third of the adult [place] population (approximately 60 million). The number of overweight and obese Americans has continued to increase since 1960, a trend that is not slowing down. Today, 64.5 percent of adult Americans (about 127 million) are categorized as being overweight or obese. Each year, obesity causes at least 300,000 excess deaths in the [place] and healthcare costs of [place] adults with obesity amount to approximately $100 [...] the gallbladder, breast, uterus, cervix, or ovaries [email or web address] [email or web address] - Eat primarily whole foods. Limit carbs, [...] immediately after meal. documented in this encounter [facility] 03-08-2024 Note HNO ID: [id number] Author: MICHELLE ROBERTS APRN.NUT THREADER Service: ? Author Type: Nurse Practitioner Type: [...] take them at this time. Michelle Roberts APRN.[facility] 03-08-2024 History of Presen t illness Narrative [...] Michelle Roberts APRN.CNP documented in this encounter [facility] 12-06-2023 Telephone encounter Note Noted. Ursula Be APRN.CNP [facility] 12-06-2023 Miscellaneous Notes Noted. Ursula Be APRN.CNP Previous message from 11/18 not sent to [place]. Medicaid does not cover any weight loss medication. Patient was notified by phone and through mychart not covered. Ramona Bone MA See pt MC message regarding Wegov[employer]. Have we received word from insurance yet? Please advise. Good Pacheco LPN documented in this encounter [facility] 12-06-2023 Telephone encounter Note Previous message from 11/18 not sent to [place]. Medicaid does not cover any weight loss medication. Patient was notified by phone and through mychart not covered. Ramona Bone MA [facility] 12-06-2023 Telephone encounter Note See pt MC message regarding Wegovy. Have we received word from insurance yet? Please advise. Good Pacheco LPN [facility] 11-22-2023 Note HNO ID: [id number] Author: MANUELA PEARCE APRN.SALVADOR Service: ? Author Type: Waste Collector Type: Progress Notes Filed: 11/22/2023 11:01 Note Text: Medical Imaging Tech offered: Patient declines. Swathi is a 33 year old who presents for an annual gynecologic exam without complaints. Working with primary care for weight loss and weight management. 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 Was in nursing home for 6 months 10 days after delivery. [...] L1 SAB6 IAB0 Ectopic0 Multiple0 Live Births1 Report Writer History LMP: 10/31/2023 (Approximate), Having periods Age at Menarche: Age at First : Age at Menopause: Report Writer History Comments: Sexual Activity: Not Currently; Male; [...] external genitalia normal, normal Bartholin's glands, urethra, Olivarez's glands, no vulvar lesions, no cervical lesions, [...] D supplementation info (more content not included)... [facility] 11-22-2023 History of Presen t illness Narrative Medical Imaging Tech offered: Patient declinesAmmon Echevarria is a 33 year old who presents for an annual gynecologic exam without complaints. Working with primary care for weight loss and weight management. 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 Was in nursing home for 6 months 10 days after delivery. [...] L1 SAB6 IAB0 Ectopic0 Multiple0 Live Births1 Report Writer History LMP: 10/31/2023 (Approximate), Having periods Age at Menarche: Age at First : Age at Menopause: Report Writer History Comments: Sexual Activity: Not Currently; Male; [...] external genitalia normal, normal Bartholin's glands, urethra, Olivarez's glands, no vulvar lesions, no cervical lesions, [...] Manuela Pearce APRN.CNM documented in this encounter [facility] 11-15-2023 Instructions Ursula Be APRN.CNP - 11/15/2023 10:17 AM EDT Schedule with [facility]. documented in this encounter [facility] 11-15-2023 Note HNO ID: [id number] Author: URSULA BE APRN.CNP Service: ? Author [...] discuss referral to weight management at [facility]. PAST MEDICAL HISTORY: PAST MEDICAL HISTORY [...] ML SUBCUTANEOUS PEN INJECTOR - CONSULT TO [facility] WEIGHT MANAGEMENT PRO[facility] Discussed treatment plan and patient voices understanding. Patient's questions answered appropriately. Medications and potential side effects were discussed and patient voices understanding. Return to the office as scheduled or as needed f (more content not included)... [facility] 11-15-2023 History of Presen t illness Narrative [...] ML SUBCUTANEOUS PEN INJECTOR - CONSULT TO [facility]IGHT [facility]NAGEMENT [facility] Discussed treatment plan and patient voices understanding. Patient's questions answered appropriately. Medications and potential side effects were discussed and patient voices understanding. Return to the office as scheduled or as needed for worsening/no improvement. Ursula Be APRN.MICHELLE documented in this encounter [facility] 09-27-2023 Telephone encounter Note The following approved medication requests have been transmitted electronically. Requested Prescriptions Signed Prescriptions Disp Refills metFORMIN (GLUCOPHAGE) 500 mg tablet 30 tablet 5 Sig: Take 1 tablet by mouth daily with breakfast. Authorizing Provider: JONY MARTELL MA [facility] 09-27-2023 Miscellaneous Notes The following approved [...] Ramona Bone MA documented in this encounter [facility] 09-26-2023 Telephone encounter Note Insurance will not pay for metformin ER till trail/failure of metformin. Please send Cancelled out metformin ER. Ramona Bone MA [facility] 09-23-2023 Telephone encounter Note See pt message. Good Pacheco LPN [facility] 09-23-2023 Miscellaneous Notes See pt message. Good Pacheco LPN documented in this encounter [facility] 09-06-2023 Instructions Ursula Be APRN.NUT THREADER - 09/06/2023 9:19 AM EDT Stop the naproxen. Start the celebrex. Start the ear drops (let me know if not covered by insurance). Get the fasting labwork. Health Promotion: - Eat healthy -- go to TravelSite.com.gov to get started - Have a yearly [...] - Wear sunscreen documented in this encounter [facility] 09-06-2023 Note HNO ID: [id number] Author: URSULA BE APRN.NUT THREADER Service: ? Author Type: Nurse Practitioner Type: [...] helping. Wrists and back. 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 [facility] 09-06-2023 History of Presen t illness Narrative [...] helping. Wrists and back. 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 Patient's questions answered appropriately. Medications and potential side effects were discussed and patient voices understanding. Return to the office as scheduled or as needed for worsening/no improvement. Ursula Be APRN.NUT THREADER documented in this encounter [facility] 04-15-2023 Note HNO ID: [id number] Author: Paolo Magaña APRN.MICHELLE Service: ? Author [...] No chemosis, exud (more content not included)... [facility] 04-15-2023 History of Presen t illness Narrative [...] of care. This note was generated using Pharmapod software. It may contain errors in wording, punctuation, or spelling. Paolo Magaña APRN.MICHELLE documented in this encounter [facility] 03-14-2023 Miscellaneous Notes Patient has been [...] you. MARTITA Neely. documented in this encounter [facility] 01-20-2023 History of Presen t illness [...] 2023 10:37 AM documented in this encounter [facility] 08-18-2022 Miscellaneous Notes Appt scheduled 09/09. [...] treatment of this? documented in this encounter [facility] 08-16-2022 Miscellaneous Notes Component Latest Ref Rng & Units 05/05/2022 TSH 0.270 - 4.200 mIU/L 4.350 (H) Free T4 0.9 - 1.7 ng/dL 1.0 T3 79 - 165 ng/dL 140 LOV07/26/22 documented in this encounter [facility] 07-01-2022 Instructions Silvestre Arriaga PA-C - 07/01/2022 4:56 PM EST Myofascial release as sown. See sheet on carpal tunnel and hip exercises. documented in this encounter [facility] 07-01-2022 History of Presen t illness Narrative 31 year old female with c/o Right wrist and arm pain over a couple of weeks, gradually getting worse. About 2 months ago had similar pain sa Ursula Be CNP who started gabapentin which helped. [facility] for alcohol recovery at [address] was [...] Silvestre Arriaga PA-C documented in this encounter [facility] 07-01-2022 Miscellaneous Notes Patient calls and [...] one of us documented in this encounter [facility] 05-28-2022 Miscellaneous Notes This encounter was opened in error. documented in this encounter [facility] 05-11-2022 Miscellaneous Notes See MC message. [...] Ursula Be APRN.MICHELLE documented in this encounter [facility] 05-03-2022 Instructions Ursula Be APRN.CNP - 05/03/2022 12:07 PM EST Get fasting labs. Start the naproxen twice daily w/ food. Schedule sleep study. Schedule with bariatrics. documented in this encounter [facility] 05-03-2022 History of Presen t illness [...] some labwork. She has been seeing a resident care director and recommending labwork. Increased pain. Refers that [...] consider bariatric surgery. She is meeting w/ resident care director and working on food choices. She is [...] Ursula Be APRN.MICHELLE documented in this encounter [facility] 03-24-2022 Instructions Ursula eB APRN.CNP - 03/24/2022 12:17 PM EDT Start the propranolol twice daily. Recheck in 1 month. Sooner if needed. documented in this encounter [facility] 03-24-2022 History of Presen t illness [...] APRN.MICHELLE This note was partially generated using Pharmapod voice recognition system. Note was reviewed for accuracy. There may be minor misspellings or grammar miscues with Pharmapod voice recognition. documented in this encounter [facility] 12-09-2018 History of Past i llness Narrative Problem Noted Date Resolved Date Excessive growth affec ting management of mother, antepartum 12/09/2018 01/11/2019 documented as of this encounter (statuses as of 03/24/2022) [facility] History of Past illness Narrative* Problem Noted Date Resolved Date Excessive growth affec ting management of mother, antepartum 12/09/2018 01/11/2019 documented as of this encounter (statuses as of 05/04/2022) [address]13-2019 History of Past illness Narrative* Problem Noted Date Resolved Date Excessive growth affec ting management of mother, antepartum 12/09/2018 01/11/2019 documented as of this encounter (statuses as of 05/11/2022) [address]-2019 History of Past illness Narrative* Problem Noted Date Resolved Date Excessive growth affec ting management of mother, antepartum 12/09/2018 01/11/2019 documented as of this encounter (statuses as of 06/02/2022) [address]-2019 History of Past illness Narrative* Problem Noted Date Resolved Date Excessive growth affec ting management of mother, antepartum 12/09/2018 01/11/2019 documented as of this encounter (statuses as of 07/01/2022) [address]-2019 History of Past illness Narrative* Problem Noted Date Resolved Date Excessive growth affec ting management of mother, antepartum 12/09/2018 01/11/2019 documented as of this encounter (statuses as of 07/02/2022) [address]-2019 History of Past illness Narrative* Problem Noted Date Resolved Date Excessive growth affec ting management of mother, antepartum 12/09/2018 01/11/2019 documented as of this encounter (statuses as of 08/16/2022) [address]2019 History of Past illness Narrative* Problem Noted Date Resolved Date Excessive growth affec ting management of mother, antepartum 12/09/2018 01/11/2019 documented as of this encounter (statuses as of 08/16/2022) [address]2019 History of Past illness Narrative* Problem Noted Date Resolved Date Excessive growth affec ting management of mother, antepartum 12/09/2018 01/11/2019 documented as of this encounter (statuses as of 08/19/2022) [address]2019 History of Past illness Narrative* Problem Noted Date Resolved Date Excessive growth affec ting management of mother, antepartum 12/09/2018 01/11/2019 documented as of this encounter (statuses as of 10/09/2022) [address]2019 History of Past illness Narrative* Problem Noted Date Resolved Date Excessive growth affec ting management of mother, antepartum 12/09/2018 01/11/2019 documented as of this encounter (statuses as of 11/25/2022) [facility] History of Past illness Narrative* Problem Noted Date Diagnosed Date Resolved Date Excessive growth affec ting management of mother, antepartum 12/09/2018 01/11/2019 documented as of this encounter (statuses as of 01/20/2023) [facility] History of Past illness Narrative* Problem Noted Date Diagnosed Date Resolved Date Excessive growth affec ting management of mother, antepartum 12/09/2018 01/11/2019 documented as of this encounter (statuses as of 03/14/2023) [facility] History of Past illness Narrative* Problem Noted Date Diagnosed Date Resolved Date Excessive growth affec ting management of mother, antepartum 12/09/2018 01/11/2019 documented as of this encounter (statuses as of 04/15/2023) [facility] History of Past illness Narrative* Problem Noted Date Diagnosed Date Resolved Date Excessive growth affec ting management of mother, antepartum 12/09/2018 01/11/2019 documented as of this encounter (statuses as of 09/07/2023) [facility] + Plan note No data available for this section [facility] Evaluation note* Diagnosis Hypertension, essential- Primary Unspecified essential hypertension Panic disorder without agoraphobia documented in this encounter [facility] note* Diagnosis Hypertension, essential- Primary Unspecified [...] apnea (adult) (pediatric) documented in this encounter [facility] note* Diagnosis Vitamin D deficiency- Primary Unspecified vitamin D deficiency [facility]* Diagnosis OPENED IN ERROR- Primary To allow closing an encounter opened in error (used in SmartSet) documented in this encounter [facility] note* Diagnosis Subclinical hypothyroidism- Primary Other specified acquired hypothyroidism Numbness and tingling in right hand Disturbance of skin sensation 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) Other and unspecified alcohol dependence, unspecified drinking behavior Left hip pain Pain in joint, pelvic region and thigh [facility] Diagnosis Acquired hypothyroidism Unspecified hypothyroidism [facility] Diagnosis Carpal tunnel syndrome, bilateral- Primary Carpal tunnel syndrome [facility] Diagnosis 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 [facility] Diagnosis Acute conjunctivitis of right eye, unspecified acute conjunctivitis type- Primary [facility] Diagnosis Wellness examination- Primary Acquired hypothyroidism Unspecified hypothyroidism Prediabetes Other abnormal glucose Polyarthralgia Pain in joint, multiple sites Elevated sed rate Elevated sedimentation rate Vitamin D deficiency Unspecified vitamin D deficiency Anemia, unspecified type Gastroesophageal reflux disease, unspecified whether esophagitis present Encounter for immunization Need for other specified prophylactic vaccination against single bacterial disease [facility] Diagnosis Prediabetes- Primary Other abnormal glucose Polyarthralgia Pain in joint, multiple sites documented [facility] this [facility]* Diagnosis Prediabetes- Primary Other abnormal glucose [facility] Diagnosis Morbid obesity with BMI of 50.0-59.9, adult (HCC)- Primary Morbid obesity documented in this encounter [facility] note* Diagnosis Encounter for gynecological examination [...] obesity type (HCC) [facility] Diagnosis Mood disorder (HCC)- Primary Unspecified episodic mood disorder Anxiety Anxiety state, unspecified Panic attack Panic disorder without agoraphobia Morbid obesity (HCC) Morbid obesity Routine health maintenance Routine general medical examination at a health care facility Back ache Backache, unspecified Depression Depressive disorder, not elsewhere classified Nausea- Primary Nausea alone Diarrhea, unspecified type [facility] Diagnosis Mood disorder (HCC)- Primary Unspecified [...] (HCC) Morbid obesity documented in this encounter [facility] note* Diagnosis Mood disorder (HCC)- Primary Unspecified episodic mood disorder Anxiety Anxiety state, unspecified Panic attack Panic disorder without agoraphobia Morbid obesity (HCC) Morbid obesity Routine health maintenance Routine general medical examination at a health care facility Back ache Backache, unspecified Depression Depressive disorder, not elsewhere classified Polyarthralgia Pain in joint, multiple sites documented in this encounter [facility] note* Diagnosis Mood disorder (HCC)- Primary Unspecified episodic mood disorder Anxiety Anxiety state, unspecified Panic attack Panic disorder without agoraphobia Morbid obesity (HCC) Morbid obesity Routine health maintenance Routine general medical examination at a health care facility Back ache Backache, unspecified Depression Depressive disorder, not elsewhere classified URI, acute- Primary Acute upper respiratory infections of unspecified site [facility] No data available for this section [facility] Reason for referral (narrative)* Diagnostic Procedure Only (Routine) - New Request Specialty Diagnoses / Procedures Referred By Brianna t Referred To Contact XR IMAGING Diagnoses Polyarthralgia Procedures XR SACROILIAC JOINTS 2V AP PELVIS/FERGUESON RADIOLOGIC EXAMINATION SACROILIAC JNTS <3 VIEWS Alberta Edward MD [address] [place] [address] [place] [address] Referral ID Status Reason Start Date Expiration Date Visits Requested Visits Authorized [id number] New Request Auto-Generat ed Referral 4 04/13/2025 1 1 * Diagnostic Procedure Only (Routine) - New Request Specialty Diagnoses / Procedures Referred By Contac t Referred To Contact XR IMAGING Diagnoses Polyarthralgia Procedures XR LUMBAR GENERAL 3V AP/LAT/L5-S1 RADEX SPINE LUMBOSACRAL 2/3 VIEWS Alberta Edward MD [address] [place] [address] [place] [address] Referral ID Status Reason Start Date Expiration Date Visits Requested Visits Authorized [id number] New Request Auto-Generat ed Referral 4 04/13/2025 1 1 * Diagnostic Procedure Only (Routine) - New Request Specialty Diagnoses / Procedures Referred By Contac t Referred To Contact XR IMAGING Diagnoses Polyarthralgia Procedures XR KNEE GENERAL 4V AP BOTH/PA BOTH/LAT/MERC BILATERAL RADIOLOGIC EXAM KNEE COMPLETE 4/MORE VIEWS Alberta Edward MD [address] [place] [address] Xr Imaging [id number] Referral ID Status Reason Start Date Expiration Date Visits Requested Visits Authorized [id number] New Request Auto-Generat ed Referral 4 04/13/2025 1 1 * Diagnostic Procedure Only (Routine) - New Request Specialty Diagnoses / Procedures Referred By Contac t Referred To Contact XR IMAGING Diagnoses Polyarthralgia Procedures XR HAND GENERAL 3V PA/LAT/OBL BILATERAL RADEX HAND MINIMUM 3 VIEWS Alberta Edward [facility] [address] [facility] [place] [id number] [place] [address] Referral ID Status Reason Start Date Expiration Date Visits Requested Visits Authorized [id number] New Request Auto-Generat ed Referral 4 04/13/2025 1 1 * Diagnostic Procedure Only (Routine) - New Request Specialty Diagnoses / Procedures Referred By Brianna tong Referred To Contact XR IMAGING Diagnoses Polyarthralgia Procedures XR FOOT GENERAL 3V AP/LAT/OBL BILATERAL RADEX FOOT COMPLETE MINIMUM 3 VIEWS Alberta Edward MD [address] [place] [address] Xr Imaging [place] [address] Referral ID Status Reason Start Date Expiration Date Visits Requested Visits Authorized [id number] New Request Auto-Generat ed Referral 4 04/13/2025 1 1 [facility] Summary Purpose Family History No Family [...] THERAPY MEDICAL NUTRITION ASSMT&IVNTJ INDIV EACH [address] Angela Crawford MD [address] [place] [address] Referral ID Status Reason Start Date Expiration Date Visits Requested Visits Authorized [id number] Authorized PCP Requested Referral 4 03/13/2025 1 4 Specialty Diagnoses / Procedures Referred By Brianna tong Referred To Contact Diagnoses Elevated hemoglobin A1c Malaise and fatigue ANDREW (obstructive sleep apnea) Elevated cholesterol Elevated blood pressure reading without diagnosis of hypertension Morbid obesity with BMI of 50.0-59.9, adult (HCC) Procedures CONSULT [facility] OFFICE/OUTPATIENT NEW HIGH MDM 60 MINUTES Angela Crawford MD [address] [place] [address] Referral ID Status Reason Start Date Expiration Date Visits Requested Visits Authorized [id number] Authorized PCP Requested Referral 4 03/13/2025 1 1 Specialty Diagnoses / Procedures Referred By Contac t Referred To Contact Diagnoses Morbid obesity with BMI of 50.0-59.9, adult (HCC) ANDREW (obstructive sleep apnea) Elevated blood pressure reading without diagnosis of hypertension Malaise and fatigue Procedures CONSULT TO SLEEP MEDICINE - ADULT OFFICE/OUTPATIENT NEW HIGH MDM 60 MINUTES Angela Crawford MD [address] [place] [address] Referral ID Status Reason Start Date Expiration Date Visits Requested Visits Authorized [id number] Authorized PCP Requested Referral 4 03/13/2025 1 1 Specialty Diagnoses / Procedures Referred By Contac t Referred To Contact [facility] Diagnoses Morbid obesity with BMI of 50.0-59.9, adult (HCC) ANDREW (obstructive sleep apnea) Elevated blood pressure reading without diagnosis of hypertension Malaise and fatigue Procedures HOME SLEEP APNEA TEST (HSAT) SLEEP STD AIRFLOW HRT RATE&O2 SAT EFFORT UNATT Angela Crawford MD [address] [place] [address] [facility] [address] [place] [address] Referral ID Status Reason Start Date Expiration Date Visits Requested Visits Authorized [id number] New Request Auto-Generat ed Referral 4 03/13/2025 1 1 Specialty Diagnoses / Procedures Referred By Contac t Referred To Contact Diagnoses Morbid obesity with BMI of 50.0-59.9, adult (HCC) Procedures CONSULT TO [facility] WEIGHT MANAGEMENT PROGRAM OFFICE/OUTPATIENT [facility] 60 MINUTES Ursula Be APRN.NUT THREADER [address] [place] [address] Referral ID Status Reason Start Date Expiration Date Visits Requested Visits Authorized [id number] Authorized PCP Requested Referral Auto-Generate d Referral 11/15/2023 11/14/2024 1 1 Specialty Diagnoses / Procedures Referred By Contac t Referred To Contact Rheumatology Diagnoses Polyarthralgia Procedures CONSULT TO RHEUM/IMMUN DISEASE OFFICE/OUTPATIENT [facility] 60 MINUTES Ursula Be APRN.NUT THREADER [address] [place] [address] Referral ID Status Reason Start Date Expiration Date Visits Requested Visits Authorized [id number] Authorized PCP Requested Referral 09/23/2023 09/22/2024 1 1 Specialty Diagnoses / Procedures Referred By Contac t Referred To Contact Diagnoses Prediabetes Ursula Be APRN.NUT THREADER [address] [place] [address] Referral ID Status Reason Start Date Expiration Date V isits Requested Visits Authorized [id number] Pending Review 1 1 Specialty Diagnoses / Procedures Referred By Contac t Referred To Contact Orthopedics Diagnoses Carpal tunnel syndrome, bilateral Procedures CONSULT TO ORTHOPAEDICS OFFICE/OUTPATIENT [facility] 60-74 MINUTES Ursula Be APRN.NUT THREADER [address] [place] [address] Referral ID Status Reason Start Date Expiration Date Visits Requested Visits Authorized [id number] Pending Review PCP Requested Referral 08/13/2022 08/13/2023 1 1 Specialty Diagnoses / Procedures Referred By Contac t Referred To Contact Diagnoses Class 3 severe obesity without serious comorbidity with body mass index (BMI) of 50.0 to 59.9 in adult, unspecified obesity type (HCC) Procedures CONSULT [facility] OFFICE/OUTPATIENT [facility] 60-74 MINUTES Ursula Be APRN.NUT THREADER [address] [place] [address] Referral ID Status Reason Start Date Expiration Date Visits Requested Visits Authorized [id number] Authorized PCP Requested Referral 05/03/2022 05/03/2023 1 1 Additional Source Comments INFORMATION SOURCE (unrecogn ized section and content) DATE CREATED AUTHOR 11/15/2017 [facility] DATE CREATED AUTHOR AUTHOR'S ORGANIZ ATION 10/24/2020 [facility] DATE CREATED AUTHOR AUTHOR'S ORGANIZ ATION 12/17/2023 [facility] DATE CREATED AUTHOR AUTHOR'S ORGANIZ ATION 03/15/2024 [facility] Source Comments (unrecognize d section and content) In the event this informatio n is protected by the Federal Confidentiality of Alcohol and Drug Abuse Patient Records regulations: The Federal rules restrict any use of the information to criminally investigate or prosecute any alcohol or drug abuse patient.[facility] the event this information is protected by the Federal Confidentiality of Alcohol and Drug Abuse Patient Records regulations: The Federal rules restrict any use of the information to criminally investigate or prosecute any alcohol or drug abuse patient.[facility] the event this information is protected by the Federal Confidentiality of Alcohol and Drug Abuse Patient Records regulations: The Federal rules restrict any use of the information to criminally investigate or prosecute any alcohol or drug abuse patient.[facility] the event this information is protected by the Federal Confidentiality of Alcohol and Drug Abuse Patient Records regulations: The Federal rules restrict any use of the information to criminally investigate or prosecute any alcohol or drug abuse patient.[facility] the event this information is protected by the Federal Confidentiality of Alcohol and Drug Abuse Patient Records regulations: The Federal rules restrict any use of the information to criminally investigate or prosecute any alcohol or drug abuse patient.[facility] the event this information is protected by the Federal Confidentiality of Alcohol and Drug Abuse Patient Records regulations: The Federal rules restrict any use of the information to criminally investigate or prosecute any alcohol or drug abuse patient.[facility] the event this information is protected by the Federal Confidentiality of Alcohol and Drug Abuse Patient Records regulations: The Federal rules restrict any use of the information to criminally investigate or prosecute any alcohol or drug abuse patient.[facility] the event this information is protected by the Federal Confidentiality of Alcohol and Drug Abuse Patient Records regulations: The Federal rules restrict any use of the information to criminally investigate or prosecute any alcohol or drug abuse patient.[facility] the event this information is protected by the Federal Confidentiality of Alcohol and Drug Abuse Patient Records regulations: The Federal rules restrict any use of the information to criminally investigate or prosecute any alcohol or drug abuse patient.[facility] Hospital[facility] the event this information is protected by the Federal Confidentiality of Alcohol and Drug Abuse Patient Records regulations: The Federal rules restrict any use of the information to criminally investigate or prosecute any alcohol or drug abuse patient.[facility] Hospital[facility] the event this information is protected by the Federal Confidentiality of Alcohol and Drug Abuse Patient Records regulations: The Federal rules restrict any use of the information to criminally investigate or prosecute any alcohol or drug abuse patient.[facility] Hospital[facility] the event this information is protected by the Federal Confidentiality of Alcohol and Drug Abuse Patient Records regulations: The Federal rules restrict any use of the information to criminally investigate or prosecute any alcohol or drug abuse patient.[facility] Hospital[facility] the event this information is protected by the Federal Confidentiality of Alcohol and Drug Abuse Patient Records regulations: The Federal rules restrict any use of the information to criminally investigate or prosecute any alcohol or drug abuse patient.[facility] Hospital[facility] the event this information is protected by the Federal Confidentiality of Alcohol and Drug Abuse Patient Records regulations: The Federal rules restrict any use of the information to criminally investigate or prosecute any alcohol or drug abuse patient.[facility] Hospital[facility] the event this information is protected by the Federal Confidentiality of Alcohol and Drug Abuse Patient Records regulations: The Federal rules restrict any use of the information to criminally investigate or prosecute any alcohol or drug abuse patient.[facility] Hospital[facility] the event this information is protected by the Federal Confidentiality of Alcohol and Drug Abuse Patient Records regulations: The Federal rules restrict any use of the information to criminally investigate or prosecute any alcohol or drug abuse patient.[facility] HospitalIn the event this information is protected by the Federal Confidentiality of Alcohol and Drug Abuse Patient Records regulations: The Federal rules restrict any use of the information to criminally investigate or prosecute any alcohol or drug abuse patient.[facility] HospitalIn the event this information is protected by the Federal Confidentiality of Alcohol and Drug Abuse Patient Records regulations: The Federal rules restrict any use of the information to criminally investigate or prosecute any alcohol or drug abuse patient.[facility] HospitalIn the event this information is protected by the Federal Confidentiality of Alcohol and Drug Abuse Patient Records regulations: The Federal rules restrict any use of the information to criminally investigate or prosecute any alcohol or drug abuse patient.[facility] HospitalIn the event this information is protected by the Federal Confidentiality of Alcohol and Drug Abuse Patient Records regulations: The Federal rules restrict any use of the information to criminally investigate or prosecute any alcohol or drug abuse patient.[facility] HospitalIn the event this information is protected by the Federal Confidentiality of Alcohol and Drug Abuse Patient Records regulations: The Federal rules restrict any use of the information to criminally investigate or prosecute any alcohol or drug abuse patient.[facility] HospitalIn the event this information is protected by the Federal Confidentiality of Alcohol and Drug Abuse Patient Records regulations: The Federal rules restrict any use of the information to criminally investigate or prosecute any alcohol or drug abuse patient.[facility] HospitalIn the event this information is protected by the Federal Confidentiality of Alcohol and Drug Abuse Patient Records regulations: The Federal rules restrict any use of the information to criminally investigate or prosecute any alcohol or drug abuse patient.[facility] HospitalIn the event this information is protected by the Federal Confidentiality of Alcohol and Drug Abuse Patient Records regulations: The Federal rules restrict any use of the information to criminally investigate or prosecute any alcohol or drug abuse patient.[facility] HospitalIn the event this information is protected by the Federal Confidentiality of Alcohol and Drug Abuse Patient Records regulations: The Federal rules restrict any use of the information to criminally investigate or prosecute any alcohol or drug abuse patient.[facility] HospitalIn the event this information is protected by the Federal Confidentiality of Alcohol and Drug Abuse Patient Records regulations: The Federal rules restrict any use of the information to criminally investigate or prosecute any alcohol or drug abuse patient.[facility] HospitalIn the event this information is protected by the Federal Confidentiality of Alcohol and Drug Abuse Patient Records regulations: The Federal rules restrict any use of the information to criminally investigate or prosecute any alcohol or drug abuse patient.[facility] HospitalIn the event this information is protected by the Federal Confidentiality of Alcohol and Drug Abuse Patient Records regulations: The Federal rules restrict any use of the information to criminally investigate or prosecute any alcohol or drug abuse patient.[facility] Reason for Visit (unrecogniz ed section [...] of 50.0-59.9, adult (HCC) Procedures CONSULT TO [facility] WEIGHT MANAGEMENT PROGRAM OFFICE/OUTPATIENT NEW HIGH MDM 60 MINUTES Ursula Be, DIE DRAWING CHECKER.NUT THREADER [address] [place] [address] Referral ID Status Reason Start Date Expiration Date V isits Requested Visits Authorized [id number] Closed PCP Requested Referral Auto-Generated Referral 11/15/2023 11/14/2024 1 1 Reason Comments New Patient Specialty Diagnoses / Procedures Referred By Brianna tong Referred To Contact Rheumatology Diagnoses Polyarthralgia Procedures CONSULT TO RHEUM/IMMUN DISEASE OFFICE/OUTPATIENT NEW [facility] 60 MINUTES Ursula Be APRN.CNP [address] [place] [address] Referral ID Status Reason Start Date Expiration Date V isits Requested Visits Authorized [id number] Closed PCP Requested Referral 09/23/2023 09/22/2024 1 [address], bodyaches x this AM, chest congestion Care Teams (unrecognized sec tion and content) Real Estate Administrator Relationship Specialty Start Date End Date Jony Martell MD [address] [place], [place] [id number] PCP - General Family Medicine 10/16/15 Real Estate Administrator Relationship Specialty Start Date End Date Jony Martell MD [address] [place], [place] [id number] PCP - General Family Medicine 10/16/15 Real Estate Administrator Relationship Specialty Start Date End Date Jony Martell MD [address] [place], [place] [address] PCP - General Family Medicine 10/16/15 Real Estate Administrator Relationship Specialty Start Date End Date Jony Martell MD [address] [place] [address] PCP - General Family Medicine 10/16/15 Real Estate Administrator Relationship Specialty Start Date End Date Jony Martell MD [address] [place] [address] PCP - General Family Medicine 10/16/15 Real Estate Administrator Relationship Specialty Start Date End Date Jony Martell MD [address] [place], [place] [address] PCP - General Family Medicine 10/16/15 Real Estate Administrator Relationship Specialty Start Date End Date Jony Martell MD [address] [place] [address] PCP - General Family Medicine 10/16/15 Real Estate Administrator Relationship Specialty Start Date End Date Jony Martell MD [address] [place] [address] PCP - General Family Medicine 10/16/15 Real Estate Administrator Relationship Specialty Start Date End Date Jony Martell MD [address] [place] [address] PCP - General Family Medicine 10/16/15 Real Estate Administrator Relationship Specialty Start Date End Date Jony Martell MD [address] [place] [address] PCP - General Family Medicine 10/16/15 Real Estate Administrator Relationship Specialty Start Date End Date Jony Martell MD [address] [place] [address] PCP - General Family Medicine 10/16/15 Real Estate Administrator Relationship Specialty Start Date End Date Jony Martell MD [address] [place] [address] PCP - General Family Medicine 10/16/15 Real Estate Administrator Relationship Specialty Start Date End Date Jony Martell MD [address] [place] [address] PCP - General Family Medicine 10/16/15 Real Estate Administrator Relationship Specialty Start Date End Date Jony Martell MD [address] [place] [address] PCP - General Family Medicine 10/16/15 Real Estate Administrator Relationship Specialty Start Date End Date Jony Martell MD [address] [place], [place] [address] PCP - General Family Medicine 10/16/15 Real Estate Administrator Relationship Specialty Start Date End Date Jony Martell MD [address] [place], [place] [id number] PCP - General Family Medicine 10/16/15 Real Estate Administrator Relationship Specialty Start Date End Date Jony Martell MD [address] [place] [address] PCP - General Family Medicine 10/16/15 Real Estate Administrator Relationship Specialty Start Date End Date Jony Martell MD [address] [place] [address] PCP - General Family Medicine 10/16/15 Real Estate Administrator Relationship Specialty Start Date End Date Jony Martell MD [address] [place] [address] PCP - General Family Medicine 10/16/15 Real Estate Administrator Relationship Specialty Start Date End Date Jony Martell MD [address] [place] [address] PCP - General Family Medicine 10/16/15 Real Estate Administrator Relationship Specialty Start Date End Date Jony Martell MD [address] [place], [place] [address] PCP - General Family Medicine 10/16/15 Real Estate Administrator Relationship Specialty Start Date End Date Jony Martell MD [address] [place] [address] PCP - General Family Medicine 10/16/15 Real Estate Administrator Relationship Specialty Start Date End Date Jony Martell MD [address] [place], [place] [address] PCP - General [facility] 10/16/15 Real Estate Administrator Relationship Specialty Start Date End Date Jony Martell MD [address] [place], [place] [address] PCP - General [facility] 10/16/15 Real Estate Administrator Relationship Specialty Start Date End Date Jony Martell MD [address] [place], [place] [address] PCP - General Family [place] 10/16/15 FOR RECORDS PERTAINING TO PATIENTS WHO [...] BE BASED ON THE PRIMARY CLINICAL RECORDS. [facility]. provides no warranty or guarantee of the accuracy or completeness of information in this document.
[2024-03-18 20:56] VITALS: BMI 52.2
[2024-03-18 21:11] VITALS: BP 139/96; PULSE 89; RESP 18; TEMP 36.6; O2SAT 97
[2024-03-18] MEDS: 0.9% Normal Saline (1000mL) 1,000 ML 100 ML IV (21:24)
[2024-03-18] MEDS: Phenobarbital 32.4 MG Tablet 64.8 MG PO ×2 (21:24→23:55)
[2024-03-18] MEDS: Famotidine 20 MG Tablet PO (22:02)
[2024-03-18] MEDS: Mirtazapine 15 MG Tablet 7.5 MG PO (22:02)
[2024-03-18] MEDS: cloNIDine HCl 0.1 MG Tablet PO (22:02)
[2024-03-18] MEDS: busPIRone 15 MG TABLET 30 MG PO (22:02)
[2024-03-18] MEDS: traZODone 100 MG Tablet PO (22:02)
[2024-03-18] MEDS: Gabapentin 300 MG Capsule PO (22:10)
--- NOTE | 2024-03-18 22:16 | NURSING ---
PT refused seizure pads
[2024-03-19] VITALS (8 sets, daily range): BP systolic 111–133; BP diastolic 67–89; PULSE 78–82; RESP 16–17; TEMP 36.1–37.2; O2SAT 96–100; BMI 53.7
[2024-03-19] MEDS: Phenobarbital 32.4 MG Tablet 64.8 MG PO ×6 (04:42→23:25)
[2024-03-19] MEDS: Gabapentin 300 MG Capsule PO ×3 (04:42→23:01)
[2024-03-19] MEDS: Thyroid 15 MG Tablet 75 MG PO (04:42)
[2024-03-19] MEDS: cloNIDine HCl 0.1 MG Tablet PO ×3 (04:42→22:58)
[2024-03-19 07:22] LABS: Absolute Lymphocyte Count 2.53 X10^3/uL (0.83-4.51); Absolute Neutrophil Count 3.5 X10^3/uL (2.0-7.7); Basophil# 0.04 X10^3/uL; Basophil% 0.6 % (0-1); Eosinophil# 0.12 X10^3/uL; Eosinophils% 1.8 % (0-5); Hematocrit 35.6 % (37-47); Hemoglobin 11.3 g/dL (12.0-15.0); Lymphocyte # 2.53 X10^3/ul (0.83-4.51); Lymphocyte % 37.9 % (19-41); Mean Corp Hgb Conc 31.7 g/dL (32-36); Mean Corpuscular Hgb 29.2 pg (27.0-32.0); Mean Platelet Vol. 10.6 fl (6.2-12.0); Monocyte# 0.51 X10^3/uL; Monocyte% 7.6 % (0-10); NRBC Flagged by Analyzer 0 % (0-5); Neutrophil # 3.46 X10^3/uL (2.7-7.7); Neutrophil % 51.8 % (47-70); Platelet Count 190 K/mm3 (150-450); RBC Distribution Width CV 15.1 % (11.6-14.6); Red Blood Count 3.87 M/mm3 (4.2-5.4); White Blood Count 6.7 K/mm3 (4.4-11.0)
[2024-03-19] MEDS: Ferrous Sulfate 325 MG Tablet PO ×2 (07:27→17:09)
[2024-03-19] MEDS: Pantoprazole Sodium 40 MG Tablet PO (07:27)
[2024-03-19] MEDS: buPROPion (XL) 300 MG TABLET.XL PO (07:28)
[2024-03-19] MEDS: Thiamine Hydrochloride 100 MG Tablet PO (07:28)
[2024-03-19] MEDS: lamoTRIgine 100 MG Tablet 200 MG PO (07:28)
[2024-03-19] MEDS: busPIRone 15 MG TABLET 30 MG PO ×2 (07:28→22:59)
[2024-03-19] MEDS: Celecoxib 200 MG Capsule PO (07:28)
[2024-03-19] MEDS: buPROPion (XL) 150 MG TABLET.XL PO (07:28)
[2024-03-19] MEDS: Famotidine 20 MG Tablet PO ×2 (07:29→23:04)
[2024-03-19] MEDS: lamoTRIgine 25 MG Tablet PO (07:30)
[2024-03-19] MEDS: Folic Acid 1 MG Tablet PO (07:30)
[2024-03-19] MEDS: Enoxaparin 40 MG/0.4 ML Syringe SC ×2 (07:30→22:59)
[2024-03-19 08:13] LABS: ALB/GLOB Ratio 0.9 RATIO (0.9-2.4); AST(SGOT) 15 U/L (15-37); Alanine Aminotransfer ALT/SGPT 22 U/L (13-56); Alkaline Phosphatase 62 U/L (45-117); Anion Gap 8 (5-15); BUN 14 mg/dL (7-18); BUN/Creat Ratio 19.9 RATIO (10-20); Calcium,Total 7.9 mg/dL (8.5-10.1); Chloride 108 mmol/L (98-107); EST Glomerular Filtration Rate 100 mL/min (>60); Est Glom Filt Rate - Afr Amer 121 mL/min (>60); Estimated Creatinine Clearance 173.01 ml/min; Globulin 3.5 g/dL (2.2-4.2); Glucose 117 mg/dL (74-106); Magnesium 2.4 mg/dL (1.6-2.6); Potassium 3.7 mmol/L (3.5-5.1); Protein, Total 6.5 g/dL (6.4-8.2); Sodium Level 140 mmol/L (136-145)
--- NOTE | 2024-03-19 09:40 | PCM.PN.HOSP ---
Reason for Visit Reason for Visit: Diagnoses Morbid (severe) obesity due to excess calories (03/18/24) Alcohol abuse, uncomplicated (03/18/24) Other stimulant abuse, uncomplicated (03/18/24) Body mass index [BMI] 50.0-59.9, adult (03/18/24) Subjective Subjective Having some abdominal cramping, which she gets when going through withdrawal. Objective Data Objective Data Vital Signs: Vital Signs Temp Pulse Resp BP Pulse Ox O2 Del Method 36.5 C L 82 16 111/71 99 Room Air 03/19/24 08:42 03/19/24 08:42 03/19/24 08:42 03/19/24 08:42 03/19/24 08:42 03/19/24 08:42 Oxygen Delivery Method Room Air Weight: 155.3 kg Body Mass Index (BMI) 53.7 Intake & Output: Intake and Output for Last 24 Hours 03/17/24 03/18/24 03/19/24 23:59 23:59 23:59 Intake Total 1000 / 1000 Balance 1000 / 1000 Lab / Micro Data 03/19/24 06:13 03/19/24 06:13 Labs: Laboratory Results - last 24 hr 03/18/24 16:38: WBC 9.3, RBC 4.25, Hgb 12.8, Hct 37.9, MCV 89.2, MCH 30.1, MCHC 33.8, RDW Std Deviation 48.2 H, RDW Coeff of Stacey 14.9 H, Plt Count 246, MPV 10.7, Immature Gran % (Auto) 0.300, Neut % (Auto) 56.3, Lymph % (Auto) 33.3, Barton % (Auto) 8.8, Eos % (Auto) 0.9, Baso % (Auto) 0.4, Absolute Neuts (auto) 5.2, Absolute Lymphs (auto) 3.09, Nucleated RBC % 0, Sodium 139, Potassium 3.6, Chloride 107, Carbon Dioxide 26.0, Anion Gap 6, BUN 15, Creatinine 0.71, Estim Creat Clear Calc 174.45, Est GFR (MDRD) Af Amer 121, Est GFR (MDRD) Non-Af 100, BUN/Creatinine Ratio 21.2 H, Glucose 70 L, Calcium 8.9, Total Bilirubin 0.30, AST 16, ALT 26, Alkaline Phosphatase 72, Total Protein 7.5, Albumin 3.5, Globulin 4.0, Albumin/Globulin Ratio 0.9, Ethyl Alcohol 75.0 03/18/24 17:49: Serum , Qual NEGATIVE, Urine Opiates Screen NEGATIVE, Urine Methadone Screen NEGATIVE, Ur Barbiturates Screen NEGATIVE, Ur Phencyclidine Scrn NEGATIVE, Ur Amphetamines Screen POSITIVE H, MDMA (Ecstasy) Screen POSITIVE H, U Benzodiazepines Scrn NEGATIVE, Urine Cocaine Screen NEGATIVE, U Cannabinoids Screen NEGATIVE, Ur Drug Screen Comment 03/19/24 06:13: WBC 6.7, RBC 3.87 L, Hgb 11.3 L, Hct 35.6 L, MCV 92.0, MCH 29.2, MCHC 31.7 L D, RDW Std Deviation 51.0 H, RDW Coeff of Stacey 15.1 H, Plt Count 190, MPV 10.6, Immature Gran % (Auto) 0.300, Neut % (Auto) 51.8, Lymph % (Auto) 37.9, Barton % (Auto) 7.6, Eos % (Auto) 1.8, Baso % (Auto) 0.6, Absolute Neuts (auto) 3.5, Absolute Lymphs (auto) 2.53, Nucleated RBC % 0, Sodium 140, Potassium 3.7, Chloride 108 H, Carbon Dioxide 24.0, Anion Gap 8, BUN 14, Creatinine 0.70, Estim Creat Clear Calc 173.01, Est GFR (MDRD) Af Amer 121, Est GFR (MDRD) Non-Af 100, BUN/Creatinine Ratio 19.9, Glucose 117 H, Calcium 7.9 L, Phosphorus 3.0, Magnesium 2.4, Total Bilirubin 0.40, AST 15, ALT 22, Alkaline Phosphatase 62, Total Protein 6.5, Albumin 3.0 L, Globulin 3.5, Albumin/Globulin Ratio 0.9, TSH 3.920 H Physical Exam Const alert and no apparent distress HEENT head/scalp atraumatic and moist oral mucous membranes Resp normal respiratory effort GI GI Narrative: obese, soft NT, nml BS. Assessment & Plan Assessment/Plan (1) Chronic alcohol abuse: (2) Amphetamine abuse: (3) Morbid obesity with BMI of 50.0-59.9, adult: PLAN: Plan Alcohol withdrawal phenobarbital taper. thiamine and folate addiction medicine has seen. Plan is for patient to go to [facility] on 03/21 (if appropriate). Pt would like Vivitrol prior to dischage. Chronic conditions obesity class III: complicates care and recovery HLP: statin Hypothyroidism: levothyroxine. TSH 3.92. VTE prophylaxis: LMWH Charges/Coding Visit Charges Inpatient E&M: 53416 Subs Hosp L2
[2024-03-19] MEDS: FLU VACC 2024-25(6MOS UP)/PF 45 MCG/0.5 ML SYRINGE IM (09:52)
--- NOTE | 2024-03-19 10:26 | ADDICTION ---
This commercial loan underwriter met with PT to conduct ASAM, MSE, AUDIT, DUDIT assessments and to plan for d/c. PT A+Ox4 and participated actively. All assessments completed. PT plans to f/u with residenital treatment services. This worker sent a referral to [facility]. Approval is pending. If not approved at [facility] she would like another residential facility.
[2024-03-19] MEDS: Dicyclomine 10 MG Capsule 20 MG PO (11:10)
--- NOTE | 2024-03-19 11:24 | ADDICTION ---
Pt has been approved for [facility] in patient tx. She is scheduled for admission on Tuesday. She also meets the criteria for Vivitrol and would like receive that prior to her admission at [facility] on Tuesday.
[2024-03-19] MEDS: Mirtazapine 15 MG Tablet 7.5 MG PO (23:01)
[2024-03-19] MEDS: Atorvastatin Calcium 20 MG Tablet PO (23:02)
[2024-03-19] MEDS: 0.9% Saline Lock 10 ML Syringe IV (23:06)
[2024-03-20 04:42] VITALS: BP 118/83; PULSE 79; RESP 17; TEMP 36.4; O2SAT 96
[2024-03-20] MEDS: Phenobarbital 32.4 MG Tablet 64.8 MG PO ×6 (04:48→23:40)
[2024-03-20 06:00] VITALS: BMI 53.7
[2024-03-20] MEDS: cloNIDine HCl 0.1 MG Tablet PO ×3 (06:37→22:43)
[2024-03-20] MEDS: Thyroid 15 MG Tablet 75 MG PO (06:37)
[2024-03-20] MEDS: Gabapentin 300 MG Capsule PO ×3 (06:37→22:42)
[2024-03-20] MEDS: Dicyclomine 10 MG Capsule 20 MG PO (06:41)
--- NOTE | 2024-03-20 07:43 | PN.HOSP_ITS ---
Reason for Visit Reason for Visit: Diagnoses Morbid (severe) obesity due to excess calories (03/18/24) Alcohol abuse, uncomplicated (03/18/24) Other stimulant abuse, uncomplicated (03/18/24) Body mass index [BMI] 50.0-59.9, adult (03/18/24) Subjective Subjective Feels better. Objective Data Objective Data Vital Signs: Vital Signs Temp Pulse Resp BP Pulse Ox O2 Del Method 36.4 C L 79 17 118/83 H 96 Room Air 03/20/24 04:42 03/20/24 04:42 03/20/24 04:42 03/20/24 04:42 03/20/24 04:42 03/20/24 04:42 Oxygen Delivery Method Room Air Weight: 155.3 kg Body Mass Index (BMI) 53.7 Intake & Output: Intake and Output for Last 24 Hours 03/18/24 03/19/24 03/20/24 23:59 23:59 23:59 Intake Total 1000 / 1000 Balance 1000 / 1000 Lab / Micro Data 03/19/24 06:13 03/19/24 06:13 Labs: Laboratory Results - last 24 hr 03/19/24 06:13: Sodium 140, Potassium 3.7, Chloride 108 H, Carbon Dioxide 24.0, Anion Gap 8, BUN 14, Creatinine 0.70, Estim Creat Clear Calc 173.01, Est GFR (MDRD) Af Amer 121, Est GFR (MDRD) Non-Af 100, BUN/Creatinine Ratio 19.9, G lucose 117 H, Calcium 7.9 L, Phosphorus 3.0, Magnesium 2.4, Total Bilirubin 0.40, AST 15, ALT 22, Alkaline Phosphatase 62, Total Protein 6.5, Albumin 3.0 L, Globulin 3.5, Albumin/Globulin Ratio 0.9, TSH 3.920 H Physical Exam Const alert and no apparent distress HEENT head/scalp atraumatic and moist oral mucous membranes Extremity normal to inspection and full ROM Neuro Sensorium / Orientation: awake and alert Assessment & Plan Assessment/Plan (1) Chronic alcohol abuse: (2) Amphetamine abuse: (3) Morbid obesity with BMI of 50.0-59.9, adult: PLAN: Plan Alcohol withdrawal * phenobarbital taper. thiamine and folate * addiction medicine has seen. * Plan is for patient to go to [email or web address] on 03/21 (if appropriate). Pt would like Vivitrol prior to dischage. Chronic conditions * obesity class III: complicates care and recovery * HLP: statin * Hypothyroidism: levothyroxine. TSH 3.92. VTE prophylaxis: LMWH Charges/Coding Visit Charges Inpatient E&M: 05588 Subs Hosp L2
[2024-03-20 08:05] LABS: Magnesium 2.5 mg/dL (1.6-2.6); Phosphorus 2.6 mg/dL (2.5-4.9)
[2024-03-20 09:36] VITALS: BP 137/91; PULSE 86; RESP 18; TEMP 36.4; O2SAT 100
[2024-03-20] MEDS: Pantoprazole Sodium 40 MG Tablet PO (09:42)
[2024-03-20] MEDS: Thiamine Hydrochloride 100 MG Tablet PO (09:42)
[2024-03-20] MEDS: Ferrous Sulfate 325 MG Tablet PO (09:42)
[2024-03-20] MEDS: Celecoxib 200 MG Capsule PO (09:42)
[2024-03-20] MEDS: lamoTRIgine 25 MG Tablet PO (09:42)
[2024-03-20] MEDS: lamoTRIgine 100 MG Tablet 200 MG PO (09:42)
[2024-03-20] MEDS: Folic Acid 1 MG Tablet PO (09:42)
[2024-03-20] MEDS: buPROPion (XL) 150 MG TABLET.XL PO (09:42)
[2024-03-20] MEDS: busPIRone 15 MG TABLET 30 MG PO ×2 (09:43→22:43)
[2024-03-20] MEDS: Famotidine 20 MG Tablet PO ×2 (09:43→22:44)
[2024-03-20] MEDS: buPROPion (XL) 300 MG TABLET.XL PO (09:43)
[2024-03-20] MEDS: Enoxaparin 40 MG/0.4 ML Syringe SC ×2 (09:43→22:42)
[2024-03-20] MEDS: Acetaminophen 325 MG Tablet 650 MG PO ×2 (16:02→22:42)
[2024-03-20 16:04] VITALS: BP 130/101; PULSE 98
[2024-03-20 20:29] VITALS: BP 118/89; PULSE 94; RESP 18; TEMP 36.8; O2SAT 97
[2024-03-20] MEDS: Mirtazapine 15 MG Tablet 7.5 MG PO (22:44)
[2024-03-20] MEDS: traZODone 100 MG Tablet PO (22:44)
[2024-03-20] MEDS: Atorvastatin Calcium 20 MG Tablet PO (22:44)
[2024-03-20 23:38] VITALS: BP 112/81; PULSE 93; RESP 18; TEMP 36.7; O2SAT 97
[2024-03-21 04:24] VITALS: BMI 53.8
[2024-03-21 05:14] VITALS: BP 104/69; PULSE 79; RESP 18; TEMP 36.8; O2SAT 100
[2024-03-21] MEDS: Phenobarbital 32.4 MG Tablet 64.8 MG PO (05:17)
[2024-03-21] MEDS: Gabapentin 300 MG Capsule PO (05:17)
[2024-03-21] MEDS: Thyroid 15 MG Tablet 75 MG PO (05:18)
[2024-03-21] MEDS: Naltrexone Microspheres 380 MG SYRINGE IM (07:35)
[2024-03-21] MEDS: Vivitrol ID Card 1 EACH MC (07:54)
[2024-03-21] MEDS: Vivitrol Administration Needles 1 EACH MC (07:54)
[2024-03-21 08:51] VITALS: BP 135/95; PULSE 93; RESP 18; TEMP 36.7; O2SAT 99
[2024-03-21] MEDS: Pantoprazole Sodium 40 MG Tablet PO (08:53)
[2024-03-21] MEDS: busPIRone 15 MG TABLET 30 MG PO (08:53)
[2024-03-21] MEDS: Famotidine 20 MG Tablet PO (08:54)
[2024-03-21] MEDS: Celecoxib 200 MG Capsule PO (08:54)
[2024-03-21] MEDS: lamoTRIgine 100 MG Tablet 200 MG PO (08:54)
[2024-03-21] MEDS: Thiamine Hydrochloride 100 MG Tablet PO ×2 (08:54→08:55)
[2024-03-21] MEDS: lamoTRIgine 25 MG Tablet PO (08:54)
[2024-03-21] MEDS: Folic Acid 1 MG Tablet PO (08:55)
[2024-03-21] MEDS: buPROPion (XL) 300 MG TABLET.XL PO (08:55)
[2024-03-21] MEDS: buPROPion (XL) 150 MG TABLET.XL PO (08:56)
--- NOTE | 2024-03-21 08:57 | DS.PCM_ITS ---
Providers Date of Admission: 03/18/24 Primary Care Physician: Dr. Jony Vásquez MD Reason For Visit: IMPENDING ALCOHOL WITHDRAWAL IN THE SETTING OF Diagnosis Discharge Diagnosis (1) Chronic alcohol abuse: Status: Chronic Code(s): F10.10 - Alcohol abuse, uncomplicated Plan Alcohol withdrawal * phenobarbital taper. thiamine and folate * addiction medicine has seen. * Plan is for patient to go to [facility] on 03/21 (if appropriate). Pt received Vivitrol this AM. prior to dischage. Chronic conditions * obesity class III: complicates care and recovery * HLP: statin * Hypothyroidism: levothyroxine. TSH 3.92. VTE prophylaxis: LMWH Medications at Discharge Home Medications famotidine 20 mg tablet 20 mg PO BID gerd 06/06/20 ferrous sulfate 325 mg (65 mg iron) tablet 325 mg PO BID supplement 06/06/20 hydroxyzine pamoate 50 mg capsule 50 mg PO Q8H PRN PRN Anxiety 06/06/20 thyroid (pork) 60 mg tablet 75 mg PO DAILY thyroid 06/06/20 trazodone 100 mg tablet 100 mg PO QHS sleep 06/06/20 atorvastatin 20 mg tablet 20 mg PO DAILY cholesterol 02/23/22 lamotrigine 25 mg tablet 25 mg PO DAILY mood 02/23/22 pantoprazole 40 mg tablet,delayed release 40 mg PO DAILY gerd 02/25/22 atomoxetine 40 mg capsule 40 mg PO DAILY 03/18/24 bupropion HCl 150 mg 24 hr tablet, extended release 150 mg PO DAILY DEPRESSION 03/18/24 bupropion HCl 300 mg 24 hr tablet, extended release 300 mg PO DAILY 03/18/24 buspirone 30 mg tablet 30 mg PO BID 03/18/24 cariprazine 1.5 mg capsule (Vraylar) 1.5 mg PO DAILY 03/18/24 celecoxib 200 mg capsule 200 mg PO DAILY 03/18/24 clonidine HCl 0.1 mg tablet 0.1 mg PO TID 03/18/24 gabapentin 300 mg capsule 300 mg PO TID 03/18/24 lamotrigine 200 mg tablet 200 mg PO DAILY 03/18/24 mirtazapine 7.5 mg tablet 7.5 mg PO QHS 03/18/24 folic acid 1 mg tablet 1 mg PO DAILY@0800 #0 tabs 03/21/24 thiamine HCl (vitamin B1) 100 mg tablet 100 mg PO DAILYCM #0 tabs 03/21/24 Physical Exam Const alert Constitutional Narrative: in bed. nontoxic. afebrile. Weight / BMI Weight Weight: 155.8 kg Body Mass Index (BMI) 53.8 ABG / Lab / Microbiology Data 03/19/24 06:13 03/19/24 06:13 D/C Instructions Discharge Diet: No restrictions Meaningful Use Info Meaningful Use Meaningful Use Diagnoses (Choose all that apply): None applicable Ischemic Stroke Statin Dosing Therapy Reference: STATIN DOSE THERAPY REFERENCE: * Patients > 75 years receive moderate or high dose statin therapy. * Patients 75 years or YOUNGER should receive HIGH intensity statin dose unless contraindicated. You will be required to document reason for non-treatment if statin daily dose does not meet guidelines. HIGH DOSE STATIN THERAPY DAILY Atorvastatin > than or = to 40 mg Rosuvastatin > than or = to 20 mg Amlodipine + Atorvastatin > than or = to 2.5/40 mg Ezetimibe + Simvastatin 10/80 mg Simvastatin 80mg Discharge Plan Admission Admit Date/Time: 03/18/24 19:27 Primary Reason for Your Visit: alcohol withdrawal. Attending Provider: Derik Schrader Primary Care Provider: Jony Vásquez Consulting Providers: Franklin Burnette Discharge Orders/Prescriptions Prescriptions: New thiamine HCl (vitamin B1) 100 mg Tablet 100 mg PO DAILYCM Qty: 0 0RF folic acid 1 mg Tablet 1 mg PO DAILY@0800 Qty: 0 0RF Continued hydroxyzine pamoate 50 MG capsule 50 mg PO Q8H PRN PRN (Reason: Anxiety) famotidine 20 MG tablet 20 mg PO BID trazodone 100 MG tablet 100 mg PO QHS ferrous sulfate 325 MG tablet 325 mg PO BID thyroid (pork) 60 MG tablet 75 mg PO DAILY atorvastatin 20 mg tablet 20 mg PO DAILY lamotrigine 25 mg tablet 25 mg PO DAILY pantoprazole 40 mg Tablet,Delayed Release (Dr/Ec) 40 mg PO DAILY buspirone 30 mg tablet 30 mg PO BID mirtazapine 7.5 mg tablet 7.5 mg PO QHS atomoxetine 40 mg capsule 40 mg PO DAILY celecoxib 200 mg capsule 200 mg PO DAILY clonidine HCl 0.1 mg tablet 0.1 mg PO TID lamotrigine 200 mg tablet 200 mg PO DAILY gabapentin 300 mg capsule 300 mg PO TID bupropion HCl 300 mg tablet extended release 24 hr 300 mg PO DAILY bupropion HCl 150 mg tablet extended release 24 hr 150 mg PO DAILY Vraylar 1.5 mg capsule 1.5 mg PO DAILY Discontinued buspirone 15 MG tablet 15 mg PO TID Referrals / Follow Up: Jony Vásquez MD [Primary Care Provider] - Within 1 Month Disposition Disposition (needs filled in before D/C Order can be placed): Home, Self Care Charges/Coding Visit Charges Inpatient E&M: 49241 Disch Hosp
== END 2024-03-21 09:41 | disposition home or self-care (01) | DRG 775 ==
LOC: ED 17:12 → MS3 19:40
PROVIDERS: Admitting Provider Internal Medicine; Emergency Provider Surgery; PCP Family Medicine
DX: F10.139 Alcohol abuse with withdrawal, unspecified (principal); Z68.43 Body mass index [BMI] 50.0-59.9, adult; F15.10 Other stimulant abuse, uncomplicated; F31.9 Bipolar disorder, unspecified; E03.9 Hypothyroidism, unspecified; E78.00 Pure hypercholesterolemia, unspecified; F41.9 Anxiety disorder, unspecified; Z87.891 Personal history of nicotine dependence; F43.10 Post-traumatic stress disorder, unspecified; E66.813 Obesity, class 3; Z23 Encounter for immunization; Z79.899 Other long term (current) drug therapy; Z79.890 Hormone replacement therapy
CPT/HCPCS: 36415; 80053; 80307; 82077; 83735; 84100; 84443; 84703; 85025; 90656; 93005; 99285; J7030; A4216

== ENCOUNTER → 2024-05-18 | Outpatient (CLI) | payer MEDICAID, SELFPAY ==
[2024-05-18 10:34] LABS: T4 Free Direct 1.45 ng/dL (0.76-1.46)
== END | disposition home or self-care (01) ==
PROVIDERS: PCP Family Medicine; Referring Provider Psychiatry & Neurology Psychiatry; Visit Provider Psychiatry & Neurology Psychiatry
DX: E03.9 Hypothyroidism, unspecified (principal)
CPT/HCPCS: 36415; 84439; 84443; 84481